=== PATIENT | male | born 1940 | race African-American/Black ===

== ENCOUNTER 2017-09-09 18:17 | Emergency (ER) | payer MEDICARE, OTHER ==
[~2017-09-09] VITALS: Ht 177.8 cm; Wt 79.4 kg
[~2017-09-09 18:17] MED LIST: FUROSEMIDE20 M1 ORAL; NKM; NORVASC5 MG ORAL
--- NOTE | 2017-09-09 18:56 | Emergency Room Report ---
History of Present Illness General Chief Complaint: Asthma Source: Patient Present Illness HPI Patient is a 76-year-old male who presents today with complaints of an asthma exacerbation. Patient has a history of asthma and states it has been having an exacerbation off and on for the last several days. He has been taking his albuterol inhaler at home with some relief. Last dose of albuterol was prior to arrival. He denies any chest pain, nausea, vomiting, shortness of breath or associated symptoms. He has no significant medical problems and denies tobacco , alcohol or drug use Allergies: Coded Allergies: No Known Allergies (Unverified , 01/09/14) Patient History Reviewed Nursing Documentation: PMH: Agreed, PSxH: Agreed Nursing Documentation-PMH Past Medical History: No History, Except For Hx Cardiac Problems: Yes Hx Hypertension: Yes Hx Pacemaker: No Hx Asthma: Yes Hx COPD: No Hx Diabetes: No Hx Cancer: No Hx Gastrointestinal Problems: No Hx Dialysis: No History Of Psychiatric Problem: No Hx Neurological Problems: No Hx Cerebrovascular Accident: No Hx Seizures: No Review of Systems Respiratory: Reports: cough All Other Systems: negative except mentioned in HPI Physical Exam Vital Signs Date Time Temp Pulse Resp B/P (MAP) Pulse Ox O2 Delivery O2 Flow Rate FiO2 09/09/17 18:21 97.5 105 18 188/120 99 Room Air Sp02 EP Interpretation: reviewed, normal General Appearance: no apparent distress, alert, GCS 15, non-toxic Head: normocephalic, atraumatic Eyes: bilateral eye normal inspection, bilateral eye PERRL ENT: hearing grossly normal, normal pharynx, no angioedema, normal voice Neck: full range of motion, supple/symm/no masses Respiratory: chest non-tender, normal breath sounds, speaking full sentences, other - faint inspiratory and expiratory wheezing in all lung lópez Cardiovascular #1: regular rate, rhythm, no edema Cardiovascular #2: 2+ carotid (R), 2+ carotid (L), 2+ radial (R), 2+ radial (L) , 2+ dorsalis pedis (R), 2+ dorsalis pedis (L) Gastrointestinal: normal bowel sounds, non tender, soft, non-distended, no guarding, no rebound Rectal: deferred Genitourinary: normal inspection, no CVA tenderness Musculoskeletal: back normal, gait/station normal, normal range of motion, non- tender, calf tenderness Neurologic: alert, oriented x3, responsive, motor strength/tone normal, sensory intact, speech normal Psychiatric: judgement/insight normal, memory normal, mood/affect normal, no suicidal/homicidal ideation Reflexes: 3+ bicep (R), 3+ bicep (L), 3+ tricep (R), 3+ tricep (L), 3+ knee (R) , 3+ knee (L) Skin: normal color, no rash, warm/dry, well hydrated Lymphatic: no adenopathy Medical Decision Making PA Attestation supervising physician Dr. Quiñonez Diagnostic Impression: Primary Impression: Acute bronchospasm Additional Impressions: History of hypertension Noncompliance ER Course Patient is given albuterol breathing treatment and Decadron with improvement of symptoms on reevaluation. A repeat pulse ox is 100% on room air which is normal and chest x-ray shows chronic changes, no infiltrates. Patient has history of hypertension and has not been taking his medication. The patient is hypertensive in the ED it is asymptomatic. No need for emergent management of hypertension. Patient is given prescription for hydrochlorothiazide and is instructed to follow up with the CT for further evaluation and management. patient understands this we will plan. Discussed case with Dr. Quiñonez who agrees with disposition and plan. Chest X-Ray Diagnostic Results Chest X-Ray Diagnostic Results : Chest X-Ray Ordered: Yes # of Views/Limited/Complete: 1 View Indication: Other - asthma exacerbation EP Interpretation: Yes Interpretation: no consolidation, no pneumothorax, other - Cardiomegaly, right pleural effusion, chronic interstitial disease Electronically Signed by: RABIA Last Vital Signs Date Time Temp Pulse Resp B/P (MAP) Pulse Ox O2 Delivery O2 Flow Rate FiO2 09/09/17 18:21 97.5 105 18 188/120 99 Room Air Status: improved Disposition: HOME, SELF-CARE Condition: Stable Scripts Hydrochlorothiazide* (HYDROCHLOROTHIAZIDE*) 25 Mg Tablet 25 MG ORAL DAILY for 20 Days, #20 TAB Prov: Gaye Prather P.A. 09/09/17 Prednisone (Prednisone) 20 Mg Tablet 40 MG PO DAILY for 4 Days, #4 TAB Prov: Gaye Prather P.A. 09/09/17 Patient Instructions: Asthma, Adult Gaye Prather P.AJuan Sep 09, 2017 18:56
[2017-09-09] MEDS ORDERED: Albuterol/Ipratropium 3ml neb HHN SCH (19:00)
[2017-09-09 20:17] VITALS: BP 147/113
[2017-09-09] MEDS ORDERED: PREDNISONE20 M1 PO (20:33)
[2017-09-09] MEDS ORDERED: HYDROCHLOROTHIA25 MG ORAL (20:33)
[2017-09-09 20:41] VITALS: BP 147/113
--- NOTE | 2017-09-10 08:53 | Diagnostic Imaging Report ---
Indication: Cough Technique: One view of the chest Comparison: 01/09/2014 Findings: There are bilateral right greater than left pleural effusions, appearing similar in size to the previous study. The heart is enlarged. The lungs are clear and there is no significant congestion. Impression: Bilateral pleural effusions Cardiomegaly
== END 2017-09-09 20:41 | disposition home or self-care (01) ==
LOC: EMR 19:01
DX: J45.901 Unspecified asthma with (acute) exacerbation (principal); I10 Essential (primary) hypertension; Z91.14 Patient's other noncompliance with medication regimen; I51.7 Cardiomegaly
CPT/HCPCS: 71045; 94640; 94664; 99283; J8540; J7620

== ENCOUNTER 2017-10-18 21:40 | Inpatient (IN) | payer MEDICARE ==
[~2017-10-18] VITALS: Ht 177.8 cm; Wt 64.0 kg
[~2017-10-18 21:40] MED LIST changes: +HYDROCHLOROTHIA25 MG ORAL; +PREDNISONE20 M1 PO
--- NOTE | 2017-10-18 22:04 | Emergency Room Report ---
History of Present Illness General Chief Complaint: Edema Source: Patient Present Illness HPI Patient presents for complaints of increased swelling in both of his legs Also feels some shortness of breath specifically with ambulation Denies any chest pain at this time denies any back or flank pain he also reports he has an upset stomach however Associates it to drinking raw milk Denies any vomiting denies any diarrhea Patient reports that he is on diuretics, however cannot give me a specific dosing Has not had any change with the dosing recently Patient saw his primary physician last week Denies any recent travel denies any calf pain Denies any pleurisy Allergies: Coded Allergies: No Known Allergies (Unverified , 01/09/14) Patient History Past Medical History: see triage record Pertinent Family History: none Reviewed Nursing Documentation: PMH: Agreed, PSxH: Agreed Nursing Documentation-PMH Hx Cardiac Problems: Yes Hx Hypertension: Yes Hx Pacemaker: No Hx Asthma: Yes Hx COPD: No Hx Diabetes: No Hx Cancer: No Hx Gastrointestinal Problems: No Hx Dialysis: No Hx Neurological Problems: No Hx Cerebrovascular Accident: No Hx Seizures: No Review of Systems All Other Systems: negative except mentioned in HPI Physical Exam Vital Signs Date Time Temp Pulse Resp B/P (MAP) Pulse Ox O2 Delivery O2 Flow Rate FiO2 10/18/17 21:42 96.6 74 16 118/85 95 Room Air 96.6 Sp02 EP Interpretation: reviewed, normal General Appearance: well appearing, no apparent distress Head: normocephalic, atraumatic Eyes: bilateral eye PERRL, bilateral eye EOMI ENT: hearing grossly normal, normal pharynx, TMs + canals normal, uvula midline Neck: full range of motion, supple, no meningismus, no bony tend Respiratory: lungs clear, normal breath sounds, no rhonchi, no respiratory distress, no retraction, no accessory muscle use, crackles - Bilateral lower lobes Cardiovascular #1: normal peripheral pulses, regular rate, rhythm, no gallop, no JVD, no murmur, edema - 2/4 bilateral legs Gastrointestinal: normal bowel sounds, non tender, soft, no mass, no organomegaly, non-distended, no guarding, no hernia, no pulsatile mass, no rebound Genitourinary: no CVA tenderness Musculoskeletal: normal inspection Neurologic: oriented x3, responsive, flowers salesperson III-XII nml as tested, motor strength/ tone normal, sensory intact Psychiatric: mood/affect normal Skin: normal color, no rash, warm/dry, palpation normal Lymphatic: normal inspection, no adenopathy Medical Decision Making Diagnostic Impression: Primary Impression: Elevated troponin Additional Impression: CHF (congestive heart failure) ER Course Patient is a fairly complex patient with multiple differential to consideration including but not limited to cardiac cardiopulmonary and vascular emergencies X-ray imaging shows small effusions Troponin is elevated Patient at this time remains chest pain-free Admitted for further care Labs Test 10/18/17 23:30 White Blood Count 11.6 K/UL (4.8-10.8) Red Blood Count 6.90 M/UL (4.70-6.10) Hemoglobin 21.0 G/DL (14.2-18.0) Hematocrit 63.5 % (42.0-52.0) Mean Corpuscular Volume 92 FL (80-99) Mean Corpuscular Hemoglobin 30.4 PG (27.0-31.0) Mean Corpuscular Hemoglobin Concent 33.0 G/DL (32.0-36.0) Red Cell Distribution Width 16.2 % (11.6-14.8) Platelet Count 103 K/UL (150-450) Mean Platelet Volume 11.3 FL (6.5-10.1) Neutrophils (%) (Auto) 82.8 % (45.0-75.0) Lymphocytes (%) (Auto) 11.0 % (20.0-45.0) Monocytes (%) (Auto) 5.5 % (1.0-10.0) Eosinophils (%) (Auto) 0.2 % (0.0-3.0) Basophils (%) (Auto) 0.5 % (0.0-2.0) Sodium Level 140 MMOL/L (136-145) Potassium Level 5.1 MMOL/L (3.5-5.1) Chloride Level 102 MMOL/L (98-107) Carbon Dioxide Level 24 MMOL/L (21-32) Anion Gap 14 mmol/L (5-15) Blood Urea Nitrogen 74 mg/dL (7-18) Creatinine 3.8 MG/DL (0.55-1.30) Estimat Glomerular Filtration Rate mL/min (>60) Glucose Level 109 MG/DL (74-106) Uric Acid 17.2 MG/DL (2.6-7.2) Calcium Level 9.7 MG/DL (8.5-10.1) Total Bilirubin 2.3 MG/DL (0.2-1.0) Direct Bilirubin 1.2 MG/DL (0.0-0.3) Aspartate Amino Transf (AST/SGOT) 112 U/L (15-37) Alanine Aminotransferase (ALT/SGPT) 113 U/L (12-78) Alkaline Phosphatase 198 U/L (46-116) Total Creatine Kinase 233 U/L (26-308) Creatine Kinase MB 3.8 NG/ML (0.0-3.6) Troponin I 0.121 ng/mL (0.000-0.056) Pro-B-Type Natriuretic Peptide 06604 pg/mL (0-125) Total Protein 7.4 G/DL (6.4-8.2) Albumin 3.7 G/DL (3.4-5.0) Globulin 3.7 g/dL Albumin/Globulin Ratio 1.0 (1.0-2.7) EKG Diagnostic Results Rate: normal Rhythm: NSR ST Segments: other - Nonspecific ST T-wave changes Rhythm Strip Diag. Results EP Interpretation: yes Rate: 78 Rhythm: NSR, no PVC's, no ectopy Chest X-Ray Diagnostic Results Chest X-Ray Diagnostic Results : Chest X-Ray Ordered: Yes # of Views/Limited/Complete: 1 View Indication: Chest Pain EP Interpretation: Yes Interpretation: no consolidation, no pneumothorax, other - Cardiomegaly, small bilateral effusions Impression: Other - Cardiomegaly, small effusion Electronically Signed by: Ivory Thomas DO Last Vital Signs Date Time Temp Pulse Resp B/P (MAP) Pulse Ox O2 Delivery O2 Flow Rate FiO2 10/18/17 21:42 96.6 74 16 118/85 95 Room Air 96.6 Status: improved Disposition: ADMITTED INPATIENT Condition: Serious IVORY THOMAS D.O. Oct 18, 2017 22:04
[2017-10-18] MEDS ORDERED: Miralax 17gm pkt ORAL PRN (23:30)
[2017-10-18] MEDS ORDERED: Albuterol/Ipratropium 3ml neb HHN PRN (23:30)
[2017-10-18] MEDS ORDERED: NYSTATIN100000 UN1 ORAL (23:49)
[2017-10-18] MEDS ORDERED: TOPROL XL100 MG ORAL (23:49)
[2017-10-18] MEDS ORDERED: LASIX40 MG ORAL (23:49)
[2017-10-18 23:58] LABS: BASOPHILS % (AUTO) 0.5 % (0.0-2.0); EOSINOPHILS % (AUTO) 0.2 % (0.0-3.0); HEMATOCRIT 63.5 % (42.0-52.0); MEAN CORPUSCULAR VOLUME 92 FL (80-99); MONOCYTES % (AUTO) 5.5 % (1.0-10.0); NEUTROPHILS % (AUTO) 82.8 % (45.0-75.0); PLATELET COUNT 103 K/UL (150-450); RED CELL DISTRIBUTION WIDTH 16.2 % (11.6-14.8); WHITE BLOOD COUNT 11.6 K/UL (4.8-10.8)
[2017-10-19 00:15] LABS: ANION GAP 14 mmol/L (5-15); BLOOD UREA NITROGEN 74 mg/dL (7-18); CALCIUM 9.7 MG/DL (8.5-10.1); CARBON DIOXIDE 24 MMOL/L (21-32); CHLORIDE 102 MMOL/L (98-107); CREATININE 3.8 MG/DL (0.55-1.30); POTASSIUM 5.1 MMOL/L (3.5-5.1); SODIUM 140 MMOL/L (136-145)
[2017-10-19 00:21] LABS: CREATINE KINASE 233 U/L (26-308)
[2017-10-19 00:27] LABS: ALANINE AMINOTRANSFERASE 113 U/L (12-78); ALBUMIN 3.7 G/DL (3.4-5.0); ALKALINE PHOSPHATASE 198 U/L (46-116); ASPARTATE AMINO TRANSFERASE 112 U/L (15-37); BILIRUBIN,TOTAL 2.3 MG/DL (0.2-1.0); CKMB 3.8 NG/ML (0.0-3.6)
[2017-10-19 00:29] LABS: BILIRUBIN,DIRECT 1.2 MG/DL (0.0-0.3)
[2017-10-19 01:45] VITALS: BP 126/85
[2017-10-19 03:37] VITALS: BP 118/74
[2017-10-19 05:54] VITALS: BP 132/93
--- NOTE | 2017-10-19 07:34 | Consultation ---
History of Present Illness General Date patient seen: Oct 19, 2017 Chief Complaint: Edema Present Illness HPI 77 year old female with hx of asthma, cardiac disease presented to ER for complaints of increased swelling in both of his legs and shortness of breath specifically with ambulation Denied any chest pain . Denied any vomiting denies any diarrhea. He is on diuretics, however cannot give a specific dosing Has not had any change with the dosing recently. Pt is admitted to telemetry for acute decompensation of CHF. Allergies: Coded Allergies: No Known Allergies (Unverified , 01/09/14) Medication History Scheduled Amlodipine Besylate (Norvasc), 5 MG ORAL DAILY Furosemide* (Lasix*), 20 MG ORAL DAILY Furosemide* (Lasix*), 40 MG ORAL DAILY, (Reported) Hydrochlorothiazide* (Hydrochlorothiazide*), 25 MG ORAL DAILY Metoprolol Succinate* (Toprol Xl*), 100 MG ORAL DAILY, (Reported) No Known Medications* (NKM - No Known Medications*), 0 ., (Reported) Nystatin* (Nystatin*), 5 ML ORAL THREE TIMES A DAY, (Reported) Prednisone (Prednisone), 40 MG PO DAILY Patient History Healthcare decision maker Resuscitation status Full Code Advanced Directive on File No Past Medical/Surgical History Past Medical/Surgical History: (1) Cardiomyopathy (2) HTN (hypertension) (3) CKD (chronic kidney disease) Review of Systems Respiratory: Reports: shortness of breath Musculoskeletal: Reports: other - pedal edema up to knees All Other Systems: negative except mentioned in HPI Physical Exam General Appearance: cachetic Lines, tubes and drains: peripheral HEENT: normocephalic, atraumatic Neck: non-tender, normal alignment Respiratory/Chest: chest wall non-tender, lungs clear, rhonchi - left, rhonchi - right Cardiovascular/Chest: normal peripheral pulses, normal rate Genitourinary/Rectal: normal genital exam Extremities: severe edema Skin Exam: normal pigmentation, warm/dry 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, no motor/sensory deficits Last 24 Hour Vital Signs Date Time Temp Pulse Resp B/P (MAP) Pulse Ox O2 Delivery O2 Flow Rate FiO2 10/19/17 05:54 97.0 71 20 132/93 100 Room Air 97.0 10/19/17 04:10 76 10/19/17 04:05 97.1 70 13 118/74 99 Room Air 97.1 10/19/17 03:37 97.1 70 13 118/74 99 Room Air 97.1 10/19/17 01:45 96.6 88 16 126/85 95 Room Air 96.6 10/18/17 23:03 74 16 Room Air 10/18/17 21:42 96.6 74 16 118/85 95 Room Air 96.6 Intake and Output 10/18/17 10/19/17 19:00 07:00 Intake Total 30 ml Output Total 200 ml Balance -170 ml Intake Oral 30 ml Output Urine Total 200 ml # Voids 1 Laboratory Tests Test 10/18/17 23:30 White Blood Count 11.6 K/UL (4.8-10.8) H Red Blood Count 6.90 M/UL (4.70-6.10) H Hemoglobin 21.0 G/DL (14.2-18.0) *H Hematocrit 63.5 % (42.0-52.0) H Mean Corpuscular Volume 92 FL (80-99) Mean Corpuscular Hemoglobin 30.4 PG (27.0-31.0) Mean Corpuscular Hemoglobin Concent 33.0 G/DL (32.0-36.0) Red Cell Distribution Width 16.2 % (11.6-14.8) H Platelet Count 103 K/UL (150-450) L Mean Platelet Volume 11.3 FL (6.5-10.1) H Neutrophils (%) (Auto) 82.8 % (45.0-75.0) H Lymphocytes (%) (Auto) 11.0 % (20.0-45.0) L Monocytes (%) (Auto) 5.5 % (1.0-10.0) Eosinophils (%) (Auto) 0.2 % (0.0-3.0) Basophils (%) (Auto) 0.5 % (0.0-2.0) Sodium Level 140 MMOL/L (136-145) Potassium Level 5.1 MMOL/L (3.5-5.1) Chloride Level 102 MMOL/L (98-107) Carbon Dioxide Level 24 MMOL/L (21-32) Anion Gap 14 mmol/L (5-15) Blood Urea Nitrogen 74 mg/dL (7-18) H Creatinine 3.8 MG/DL (0.55-1.30) H Estimat Glomerular Filtration Rate mL/min (>60) Glucose Level 109 MG/DL (74-106) H Uric Acid 17.2 MG/DL (2.6-7.2) H Calcium Level 9.7 MG/DL (8.5-10.1) Total Bilirubin 2.3 MG/DL (0.2-1.0) H Direct Bilirubin 1.2 MG/DL (0.0-0.3) H Aspartate Amino Transf (AST/SGOT) 112 U/L (15-37) H Alanine Aminotransferase (ALT/SGPT) 113 U/L (12-78) H Alkaline Phosphatase 198 U/L (46-116) H Total Creatine Kinase 233 U/L (26-308) Creatine Kinase MB 3.8 NG/ML (0.0-3.6) H Troponin I 0.121 ng/mL (0.000-0.056) Pro-B-Type Natriuretic Peptide 89962 pg/mL (0-125) H Total Protein 7.4 G/DL (6.4-8.2) Albumin 3.7 G/DL (3.4-5.0) Globulin 3.7 g/dL Albumin/Globulin Ratio 1.0 (1.0-2.7) Height (Feet): 5 Height (Inches): 10.00 Weight (Pounds): 167 Medications Current Medications Medications (Trade) Dose Ordered Sig/Denny Route PRN Reason Start Time Stop Time Status Last Admin Dose Admin Acetaminophen (Tylenol) 650 mg Q4H PRN ORAL Fever 10/18/17 23:30 11/17/17 23:29 Albuterol/ Ipratropium (Albuterol/ Ipratropium) 3 ml EVERY 4 HOURS PRN HHN Shortness of Breath 10/18/17 23:30 10/23/17 23:29 Amlodipine Besylate (Norvasc) 5 mg DAILY ORAL 10/19/17 09:00 11/18/17 08:59 Dextrose (Dextrose 50%) STAT PRN IV Hypoglycemia 10/18/17 23:30 11/17/17 23:29 Furosemide (Lasix) 40 mg EVERY 8 HOURS IV 10/19/17 06:00 11/18/17 05:59 10/19/17 05:07 Heparin Sodium (Porcine) (Heparin 5000 units/ml) 5,000 units EVERY 12 HOURS SUBQ 10/19/17 09:00 11/18/17 08:59 Ondansetron HCl (Zofran) 4 mg Q6H PRN IVP Nausea & Vomiting 10/18/17 23:30 11/17/17 23:29 Polyethylene Glycol (Miralax) 17 gm DAILYPRN PRN ORAL Constipation 10/18/17 23:30 11/17/17 23:29 Prednisone (predniSONE) 40 mg DAILY ORAL 10/19/17 09:00 11/18/17 08:59 Temazepam (Restoril) 15 mg HSPRN PRN ORAL Insomnia 10/18/17 23:30 10/25/17 23:29 Assessment/Plan Problem List: (1) Respiratory distress ICD Codes: R06.00 - Dyspnea, unspecified SNOMED: 502422962 (2) Peripheral edema ICD Codes: R60.9 - Edema, unspecified SNOMED: 317944304 (3) Cardiomyopathy ICD Codes: I42.9 - Cardiomyopathy SNOMED: 64555385 (4) CHF (congestive heart failure) ICD Codes: I50.9 - CHF (congestive heart failure) SNOMED: 91798997 (5) HTN (hypertension) ICD Codes: I10 - HTN (hypertension) SNOMED: 95213729 (6) CKD (chronic kidney disease) ICD Codes: N18.9 - CKD (chronic kidney disease) SNOMED: 663858383 (7) Malnutrition ICD Codes: E46 - Malnutrition SNOMED: 4378251 Assessment/Plan 2d echo diuretics cardiology evaluation monitor BP renal studies check electrolytes. AVRIL BANKS Oct 19, 2017 07:34
[2017-10-19] MEDS: Heparin 5000 units/ml inj SUBQ SCH ×2 (08:40→21:17)
[2017-10-19 09:22] LABS: APPEARANCE,URINE CLEAR; BILIRUBIN, URINE NEGATIVE (NEGATIVE); COLOR,URINE PALE YELLOW; GLUCOSE, URINE (UA) NEGATIVE (NEGATIVE); KETONES,URINE NEGATIVE (NEGATIVE); LEUKOCYTE ESTERASE ,URINE NEGATIVE (NEGATIVE); NITRITE,URINE NEGATIVE (NEGATIVE); PH,URINE 5 (4.5-8.0); PROTEIN,URINE NEGATIVE (NEGATIVE); UROBILINOGEN,URINE NORMAL MG/DL (0.0-1.0)
--- NOTE | 2017-10-19 10:29 | Diagnostic Imaging Report ---
Indication: Chest pain Comparison: 09/09/2017 A single view chest radiograph was obtained. Findings: Cardiac silhouette is enlarged. Pulmonary vascularity is normal. There is suggestion of mild left basal atelectasis currently. IMPRESSION: Cardiomegaly. Mild left basal atelectasis
[2017-10-19 11:17] LABS: HEMATOCRIT 60.8 % (42.0-52.0); MEAN CORPUSCULAR VOLUME 95 FL (80-99); PLATELET COUNT 102 K/UL (150-450); RED BLOOD COUNT 6.42 M/UL (4.70-6.10); RED CELL DISTRIBUTION WIDTH 16.5 % (11.6-14.8); WHITE BLOOD COUNT 11.7 K/UL (4.8-10.8)
[2017-10-19 11:20] LABS: HEMOGLOBIN 18.8 G/DL (14.2-18.0)
[2017-10-19 11:54] LABS: ALBUMIN 3.4 G/DL (3.4-5.0); ANION GAP 14 mmol/L (5-15); BLOOD UREA NITROGEN 76 mg/dL (7-18); CALCIUM 9.6 MG/DL (8.5-10.1); CARBON DIOXIDE 27 MMOL/L (21-32); CHLORIDE 102 MMOL/L (98-107); CREATININE 3.8 MG/DL (0.55-1.30); PHOSPHORUS 5.8 MG/DL (2.5-4.9); POTASSIUM 4.9 MMOL/L (3.5-5.1); SODIUM 143 MMOL/L (136-145)
--- NOTE | 2017-10-19 12:01 | Cardiology Progress Note ---
Assessment/Plan Assessment/Plan chronic systolic heart failure Right heart failuer Edema due to above and possible venous insuf Non-ischemic cardiomyopathy no cad by cath 2016 FIONA on CKD to cardiorenal History of DVT none now polycythemia unclear etiology shoudl evalue to see if primary or secondary pulmonary HTn Thrombocytopenia HTN may need a short course fo dobutamin infusion to help right heart for a few days if not improve with bp control and diuretics lisinopril / hydralazien [id number] Objective Last 24 Hour Vital Signs Date Time Temp Pulse Resp B/P (MAP) Pulse Ox O2 Delivery O2 Flow Rate FiO2 10/19/17 08:39 71 132/93 10/19/17 05:54 97.0 71 20 132/93 100 Room Air 97.0 10/19/17 04:10 76 10/19/17 04:05 97.1 70 13 118/74 99 Room Air 97.1 10/19/17 03:37 97.1 70 13 118/74 99 Room Air 97.1 10/19/17 01:45 96.6 88 16 126/85 95 Room Air 96.6 10/18/17 23:03 74 16 Room Air 10/18/17 21:42 96.6 74 16 118/85 95 Room Air 96.6 Intake and Output 10/18/17 10/19/17 19:00 07:00 Intake Total 30 ml Output Total 200 ml Balance -170 ml Intake Oral 30 ml Output Urine Total 200 ml # Voids 1 Laboratory Tests Test 10/18/17 23:30 10/19/17 09:00 10/19/17 11:00 White Blood Count 11.6 K/UL (4.8-10.8) H 11.7 K/UL (4.8-10.8) H Red Blood Count 6.90 M/UL (4.70-6.10) H 6.42 M/UL (4.70-6.10) H Hemoglobin 21.0 G/DL (14.2-18.0) *H 18.8 G/DL (14.2-18.0) *H Hematocrit 63.5 % (42.0-52.0) H 60.8 % (42.0-52.0) H Mean Corpuscular Volume 92 FL (80-99) 95 FL (80-99) Mean Corpuscular Hemoglobin 30.4 PG (27.0-31.0) 29.3 PG (27.0-31.0) Mean Corpuscular Hemoglobin Concent 33.0 G/DL (32.0-36.0) 31.0 G/DL (32.0-36.0) L Red Cell Distribution Width 16.2 % (11.6-14.8) H 16.5 % (11.6-14.8) H Platelet Count 103 K/UL (150-450) L 102 K/UL (150-450) L Mean Platelet Volume 11.3 FL (6.5-10.1) H 11.3 FL (6.5-10.1) H Neutrophils (%) (Auto) 82.8 % (45.0-75.0) H % (45.0-75.0) Lymphocytes (%) (Auto) 11.0 % (20.0-45.0) L % (20.0-45.0) Monocytes (%) (Auto) 5.5 % (1.0-10.0) % (1.0-10.0) Eosinophils (%) (Auto) 0.2 % (0.0-3.0) % (0.0-3.0) Basophils (%) (Auto) 0.5 % (0.0-2.0) % (0.0-2.0) Sodium Level 140 MMOL/L (136-145) 143 MMOL/L (136-145) Potassium Level 5.1 MMOL/L (3.5-5.1) 4.9 MMOL/L (3.5-5.1) Chloride Level 102 MMOL/L (98-107) 102 MMOL/L (98-107) Carbon Dioxide Level 24 MMOL/L (21-32) 27 MMOL/L (21-32) Anion Gap 14 mmol/L (5-15) 14 mmol/L (5-15) Blood Urea Nitrogen 74 mg/dL (7-18) H 76 mg/dL (7-18) H Creatinine 3.8 MG/DL (0.55-1.30) H 3.8 MG/DL (0.55-1.30) H Estimat Glomerular Filtration Rate mL/min (>60) mL/min (>60) Glucose Level 109 MG/DL (74-106) H 110 MG/DL (74-106) H Uric Acid 17.2 MG/DL (2.6-7.2) H Calcium Level 9.7 MG/DL (8.5-10.1) 9.6 MG/DL (8.5-10.1) Total Bilirubin 2.3 MG/DL (0.2-1.0) H Direct Bilirubin 1.2 MG/DL (0.0-0.3) H Aspartate Amino Transf (AST/SGOT) 112 U/L (15-37) H Alanine Aminotransferase (ALT/SGPT) 113 U/L (12-78) H Alkaline Phosphatase 198 U/L (46-116) H Total Creatine Kinase 233 U/L (26-308) Creatine Kinase MB 3.8 NG/ML (0.0-3.6) H Troponin I 0.121 ng/mL (0.000-0.056) 0.128 ng/mL (0.000-0.056) Pro-B-Type Natriuretic Peptide 85274 pg/mL (0-125) H Total Protein 7.4 G/DL (6.4-8.2) Albumin 3.7 G/DL (3.4-5.0) 3.4 G/DL (3.4-5.0) Globulin 3.7 g/dL Albumin/Globulin Ratio 1.0 (1.0-2.7) Urine Color Pale yellow Urine Appearance Clear Urine pH 5 (4.5-8.0) Urine Specific [place] 1.010 (1.005-1.035) Urine Protein Negative (NEGATIVE) Urine Glucose (UA) Negative (NEGATIVE) Urine Ketones Negative (NEGATIVE) Urine Occult Blood 1+ (NEGATIVE) H Urine Nitrite Negative (NEGATIVE) Urine Bilirubin Negative (NEGATIVE) Urine Urobilinogen Normal MG/DL (0.0-1.0) Urine Leukocyte Esterase Negative (NEGATIVE) Urine RBC 0-2 /HPF (0 - 0) H Urine WBC 0 /HPF (0 - 0) Urine Squamous Epithelial Cells Few /LPF (NONE/OCC) Urine Bacteria None /HPF (NONE) Urine Eosinophils None seen Urine Random Sodium 77 mmol/L (20-110) Urine Potassium Timed 33 mmol/L (12-62) Differential Total Cells Counted 100 Neutrophils % (Manual) 86 % (45-75) H Lymphocytes % (Manual) 8 % (20-45) L Monocytes % (Manual) 6 % (1-10) Eosinophils % (Manual) 0 % (0-3) Basophils % (Manual) 0 % (0-2) Band Neutrophils 0 % (0-8) Platelet Estimate Decreased L Platelet Morphology Normal Red Blood Cell Morphology Normal Phosphorus Level 5.8 MG/DL (2.5-4.9) MIMI DELGADILLO Oct 19, 2017 12:01
[2017-10-19] MEDS: HydrALAZINE 10mg Tab ORAL SCH ×2 (13:02→21:17)
--- NOTE | 2017-10-19 13:11 | Diagnostic Imaging Report ---
Indication:Elevated Bun and Creatinine. Technique: Grayscale and duplex Doppler imaging of the kidneys performed. Comparison: None Findings: There are bilateral renal cysts demonstrated of varying size. The largest cyst is in the right kidney measuring 5 cm. There is an echogenic focus likely a small stone in the right kidney. There is no hydronephrosis. The kidneys measure between 10 and 11 cm in length. Urinary bladder is unremarkable. IVC is unremarkable. IMPRESSION: Nonobstructive stone in the right kidney. Multiple bilateral renal cysts.
--- NOTE | 2017-10-19 16:22 | Cardiology Report ---
APPROVED REPORT EXAM: Two-dimensional and M-mode echocardiogram with Doppler and color Doppler. INDICATION LV funcfion M-Mode DIMENSIONS IVSd1.0 (0.7-1.1cm)Left Atrium (MM)4.7 (1.6-4.0cm) LVDd6.6 (3.5-5.6cm)Aortic Root2.6 (2.0-3.7cm) PWd1.0 (0.7-1.1cm)Aortic Cusp Exc.1.6 (1.5-2.0cm) LVDs6.1 (2.5-4.0cm) PWs1.2 cm Four chamber dilatation with severe left ventricular enlargement. Severe global left ventricular hypokinesis with septal thinning. Left ventricular ejection fraction estimated to be 10-15 %. No evidence of pericardial effusion. Focal aortic valve sclerosis with adequate cusp excursion. Thickened mitral valve leaflets with normal excursion. Mitral annulus and aortic root calcification. Pulmonic valve not well visualized. Normal tricuspid valve structure. IVC dilated at 2.6 cm without physiologic collapse suggestive of increased RA pressure. A color flow and spectral Doppler study was performed and revealed: Moderate aortic regurgitation. Moderate mitral regurgitation. Mitral inflow velocities indicates possible pseudo normalization pattern implying moderately elevated left atrial pressure (Grade II ). Moderate to severe tricuspid regurgitation. Tricuspid systolic velocities suggests peak right ventricular systolic pressure of 71 mmHg, consistent with severe pulmonary hypertension. Significant pulmonic regurgitation present.
--- NOTE | 2017-10-19 16:26 | Cardiology Report ---
APPROVED REPORT EKG Measurement Heart [id number] Sinus rhythm with 1st degree AV block Possible Left atrial enlargement Left axis deviation Right bundle branch block Anterolateral infarct, age undetermined Abnormal ECG
--- NOTE | 2017-10-19 17:43 | Consultation ---
Consult Note Consult Note Asked to eval for renal failure- Patient presents for complaints of increased swelling in both of his legs Also feels some shortness of breath specifically with ambulation Denies any chest pain at this time denies any back or flank pain he also reports he has an upset stomach however Associates it to drinking raw milk Denies any vomiting denies any diarrhea Patient reports that he is on diuretics, however cannot give me a specific dosing Has not had any change with the dosing recently Patient saw his primary physician last week Denies any recent travel denies any calf pain Denies any pleurisy Hx Cardiac Problems: Yes Hx Hypertension: Yes Hx Asthma: Yes Assessment/Plan FIONA on CKD to cardiorenal chronic systolic heart failure Right heart failuer Edema due to above and possible venous insuf Non-ischemic cardiomyopathy no cad by cath 2015 History of DVT none now polycythemia unclear etiology should eval to see if primary or secondary pulmonary HTn Thrombocytopenia HTN echo: Severe global left ventricular hypokinesis with septal thinning. Left ventricular ejection fraction estimated to be 10-15 %. Plan; Optimize cardiac status monitor renal parameters 24 H urine for CrCl Avoid nephrotoxics BHARATHI LOVE Oct 19, 2017 17:43
[2017-10-19] MEDS: Tamsulosin 0.4mg cap ORAL SCH (18:50)
--- NOTE | 2017-10-19 19:57 | History & Physical ---
History and Physical History & Physicial pt seen and examined full note dictated [id number] Madelaine Tobias MD [phone] MADELAINE TOBIAS Oct 19, 2017 19:56
[2017-10-19 20:00] VITALS: BP 123/86
--- NOTE | 2017-10-19 20:15 | Consultation ---
DATE OF CONSULTATION: 10/19/2017 CARDIOLOGY CONSULTATION CONSULTING PHYSICIAN: Liang Bustamante M.D. REFERRING PHYSICIAN: Martín Crowley M.D. REASON FOR REFERRAL: Congestive heart failure. HISTORY OF PRESENT ILLNESS: This is a 77-year-old gentleman who has had a history of diastolic heart failure from prior evaluations and hospitalizations at [facility], but apparently, had not been compliant with medication over the past 5 months, presented to primary care physician's office, with increasing leg edema. He was just started on some diuretics. His edema continues, so he came to the emergency room. He really does not have any dyspnea on exertion. There is no PND. No orthopnea. No dizziness or lightheadedness on standing. No heart pounding or palpitations. He is active. He rides his stationary bike between 5 to 20 minutes a day. He does not really have to stop because of shortness of breath or chest pain. No pain, pressure, tightness, or heaviness in his chest. PAST MEDICAL HISTORY: Obtained from review of the patient's [facility] records indicate a history of congestive heart failure, systolic dysfunction, history of hypertension, chronic kidney disease, pulmonary hypertension, pleural effusions, nonischemic cardiomyopathy, thoracentesis, right lower extremity popliteal and peroneal DVT, anemia of chronic disease with iron deficiency anemia secondary hyperparathyroidism, pulmonary hypertension, early satiety, thrombocytopenia, hypertension. He has undergone a cardiac catheterization for history of really depressed LV function in 2016 that showed no evidence of obstructive disease and the patient was deemed to have nonischemic cardiomyopathy, right renal cyst. ALLERGIES: He is not allergic to any medications. SOCIAL HISTORY: He has not smoked since 1988. No drinking of alcoholic beverages. No drug use. REVIEW OF SYSTEMS: GASTROINTESTINAL: He denies except for the fact that he has not been eating for the past two weeks because of what he feels is the treatment that he got for his teeth recently. this appetite he thinks. GENITOURINARY: He denies. PULMONARY: He denies. CONSTITUTIONAL: He denies. NEUROLOGIC: He denies. CARDIAC: As mentioned in history of present illness. PHYSICAL EXAMINATION: GENERAL: Shows to be elderly gentleman, in no respiratory distress, although he is sitting up. LUNGS: Appear to be clear to auscultation and percussion. CARDIAC: Regular rhythm. No murmurs, rubs, heaves, or thrills noted. ABDOMEN: Soft, obese. Positive bowel sounds. EXTREMITIES: Show 2+ edema, basically in the lower extremities below the knee 2 to 3+. LABORATORY AND DIAGNOSTIC DATA: EKG shows sinus rhythm, leftward axis, delay in R-wave progression and direct comparison with prior EKGs performed at [facility] in October 2015 and appears the QRS maybe slightly wider, although not significant. Otherwise, no other abnormalities and incomplete right bundle-branch conduction defect is noted. Venous duplex study of the lower extremity has been performed and is negative. His laboratories, white count 11.7 with a hemoglobin of 18.8, down from 21 with a platelet count of 102. Sodium 140, potassium 5.1, chloride 102, bicarbonate 24, BUN of 74, creatinine of 3.8 and glucose of 109. Uric acid of 17.2, calcium is 9.7. AST and ALT elevated at 112 and 130 consecutively and his alkaline phosphate is 198. His troponin-I here 0.121 to and 0.128. ProBNP of 30,000 almost and an albumin of 3.7. Urinalysis is fairly unremarkable. He had x-rays of his chest that showed cardiomegaly, mild left-sided atelectasis. His venous duplex as mentioned, is negative. Echocardiogram has been performed, yet to be determined. In direct comparison with the laboratories over at [facility] back in 2015, his liver function tests are much increased since October 2015. AST and ALT were 22 and 32. His alkaline phosphatase was also 88 before. ASSESSMENT AND PLAN: 1. Peripheral edema, possibility includes venous insufficiency and/or right heart failure. 2. History of nonischemic cardiomyopathy with previous ejection fraction of 15%. 3. History of right ventricular failure with pulmonary hypertension previously. 4. Medication noncompliance. 5. Acute renal insufficiency with creatinine increased from baseline of 1.3. 6. Azotemia. 7. Chronic congestive heart failure class 3. 8. Thrombocytopenia, appears to be chronic in nature. 9. Polycythemia. Dr. Crowley, this patient was seen in cardiac consultation. He probably has chronic congestive heart failure component as this seems to be relatively stable. At this time, his main issue is possible edema secondary to either venous insufficiency or right heart failure. He has had a history of pulmonary hypertension before. He should continue getting diuretics and importance of compliance with medication was discussed with the patient. He should be on guideline directed medical therapy including MONO inhibitors once and if his creatinine allows as well as some beta-blockers and sodium-restricted diet. He does not have any coronary disease that needs to be evaluated. Since he does not have any deep venous thrombosis at this time, he probably does not need any anticoagulation at this time. He has polycythemia at this time, not clear etiology that may need to be worked up, just see if primary or secondary. Liang Bustamante M.D. DR: Joanna JOB#: [id number] CC:
[2017-10-19 21:38] LABS: LACTATE DEHYDROGENASE 348 U/L (81-234)
[2017-10-20] VITALS: BP 117/72
[2017-10-20 04:00] VITALS: BP 114/66
--- NOTE | 2017-10-20 05:15 | History and Physical Report ---
DATE OF ADMISSION: 10/18/2017 NOTE: POOR AUDIO CHIEF COMPLAINT: Leg swelling and shortness of breath. HISTORY OF PRESENT ILLNESS: This is a 77-year-old gentleman with history of asthma and cardiac disease, presented to the emergency room with worsening swelling of the lower extremities and shortness of breath. The patient was on diuretics, not clear if the patient was taking it on a regular basis. The patient denies any chest pain. No nausea or vomiting. No abdominal pain. The patient was treated with diuretics and nebulizers in the emergency room and was admitted for further evaluation. ALLERGIES: No known drug allergies. MEDICATIONS: At home, please refer to medication reconciliation. I have reviewed at length. PAST MEDICAL HISTORY: 1. History of hypertension. 2. Chronic kidney disease, stage 3-4. 3. Cardiomyopathy. 4. Congestive heart failure. 5. Hyperlipidemia. 6. Cardiac disease. 7. Asthma. FAMILY HISTORY: Reviewed, history of hypertension and coronary artery disease. SOCIAL HISTORY: The patient does not smoke. No alcohol. No illicit drug use. REVIEW OF SYSTEMS: A 14-point review of systems done.CONSTITUTIONAL: Reported generalized weakness. No fever or chills. HEENT: No change in vision. No tinnitus. No epistaxis. CARDIAC: No chest pain or palpitations. History of cardiomyopathy and hypertension. LUNGS: Reported shortness of breath, worse with exertion. ABDOMEN: No nausea. No vomiting. No abdominal pain. No diarrhea. No constipation. No blood or melena. NEUROLOGIC: No history of CVA or history of TIA. GENITOURINARY: No dysuria. No hematuria. History of chronic kidney disease. All other systems reviewed and negative except for what was mentioned above. PHYSICAL EXAMINATION: VITAL SIGNS: Temperature afebrile 97 degrees Fahrenheit, pulse 71, respirations 22, blood pressure 132/93, and O2 saturation 100% on room air. GENERAL: The patient looks cachectic and in no acute respiratory distress. HEENT: Eyes are anicteric. NECK: Supple. No JVD. CARDIAC: S1 and S2 normal. There is a systolic ejection murmur at the left sternal border. LUNGS: Bilateral rhonchi. ABDOMEN: Soft, nontender, and nondistended. No guarding. No rebound. EXTREMITIES: The patient has marked edema of the lower extremities. SKIN: No rash. NEUROLOGIC: The patient moves all extremities. Follows commands. LABORATORY AND DIAGNOSTIC DATA: Labs on admission, WBC 11.6, hemoglobin 21, hematocrit 63.5, platelets 103, and neutrophils 83%. Sodium 140, potassium 5.1, chloride 102, bicarbonate 24, BUN 74, creatinine 3.8, glucose 109, uric acid 17.2, and calcium 9.7. Total bilirubin is 2.3, direct bilirubin is 1.2, AST 112, ALT 113, and alkaline phosphatase 198. CK 233. Troponin is 0.121. Albumin is 3.7. A 12-lead EKG reveals a sinus rhythm with first-degree AV block, possible left atrial enlargement, left axis deviation, right [id number], anterolateral infarct, abnormal EKG. IMPRESSION: 1. Acute on chronic left-sided heart failure. 2. History of cardiomyopathy. 3. Lower extremity edema. 4. Nonischemic cardiomyopathy, status post cardiac catheterization in 2016. 5. Polycythemia. 6. Hypertension. 7. Thrombocytopenia. 8. Hyperlipidemia. 9. Chronic kidney disease, stage 3-4. PLAN: 1. Admit to telemetry. 2. Serial cardiac enzymes and EKGs. 3. Cardiology and nephrology evaluation. 4. A 2D echo. 5. Diuretics. 6. A 24-hour urine for creatinine clearance and protein. 7. Avoid nephrotoxic medication. 8. Optimize cardiac status. 9. tele observation. 10. DVT and GI prophylaxes. 11. TSH, lipid panel, and hemoglobin A1c. 12. Pulmonary evaluation. 13. Keep oxygen saturation above 93%. 14. Out of bed with physical therapy as tolerated. 15. Further recommendations will follow pending response to the above measures and input by consultants. 16. Code status, Full code. DISPOSITION: Home versus prison facility. Anticipate discharge within three to four days pending response to the above measures. Time spent on evaluation and intervention of care is 75 minutes. Complexity of this case, high. Martín Crowley M.D. DR: ORIANA JOB#: [id number] CC: NEIDA
--- NOTE | 2017-10-20 05:15 | Consultation ---
DATE OF CONSULTATION: 10/19/2017 NOTE: POOR AUDIO HEMATOLOGY/ONCOLOGY CONSULTATION CONSULTING PHYSICIAN: Mahendra Marinelli M.D. REQUESTING PHYSICIAN: Martín Crowley M.D. and Blayne Wilson M.D. IDENTIFICATION DATA: Dear Dr. Wilson, The patient is a pleasant 77-year-old gentleman with past medical history significant for coronary artery disease and asthma, at this time presents with lower extremity swelling in the legs and shortness of breath with ambulation. Denies any fevers, chills, or night sweats. He is on diuretics, unknown exact dosing, has not had any changes in the dosing recently, has had current presentation of severe erythrocytosis with hemoglobin of 21, potentially dehydrated. Hematology Service consulted for further evaluation and underlying treatment. PAST MEDICAL HISTORY: Include hypertension, asthma, and cardiac disease. ALLERGIES: No known drug allergies. MEDICATIONS: Amlodipine, Lasix, hydrochlorothiazide, and metoprolol. SOCIAL HISTORY: None noted. REVIEW OF SYSTEMS: CONSTITUTIONAL: Shortness of breath noted. SKIN: No rashes, bumps, or itching. HEENT: No headache, hearing or vision changes. BREASTS: No lumps, pain, or discharge. PULMONARY: No cough, sputum. GASTROINTESTINAL: No nausea, vomiting, or diarrhea. GENITOURINARY: No dysuria, frequency, or urgency. MUSCULOSKELETAL: No joint swelling, muscle pain, or trauma. PHYSICAL EXAMINATION: VITAL SIGNS: Reviewed. GENERAL: No acute distress. PULMONARY: Decreased breath sounds. CARDIOVASCULAR: Regular rate. No S3 or S4. ABDOMEN: Soft, nontender, and nondistended. EXTREMITIES: No cyanosis, swelling, or edema. LABORATORY DATA: WBC , hemoglobin 18, hematocrit 60, and platelet count 100,000. ASSESSMENT AND RECOMMENDATIONS: 1. Erythrocytosis, which is severe, this is new for the patient. Obtain JAK2 level. In addition, obtain peripheral smear. This could be secondary to multiple causes such as dehydration. At this time, again obtain JAK2 level, iron panel, and erythropoietin level. The patient also noted to have decreased platelet count, therefore obtain hepatitis panel and HIV for evaluation, potentially secondary to polycythemia vera, JAK2 should be positive in most cases, 98% of cases. 2. Thrombocytopenia, potentially secondary to infectious process versus medications versus polycythemia vera or other disorder of the bone marrow. Hepatitis panel and HIV negative. Ultrasound of the abdomen is pending. 3. , potentially secondary to reactive process, mild. 4. Elevated creatinine, potentially secondary to chronic kidney disease. Continue to closely monitor. 5. insufficiency. 6. History of deep vein thrombosis . 7. Polycythemia, again potentially secondary to primary versus secondary. 8. Hypertension. Continue to closely monitor. I appreciate the consultation. Mahendra Marinelli M.D. DR: Tomi JOB#: [id number] CC:
[2017-10-20] MEDS: HydrALAZINE 10mg Tab ORAL SCH (05:28)
[2017-10-20 07:17] LABS: HEMOGLOBIN 16.5 G/DL (14.2-18.0); MEAN CORPUSCULAR VOLUME 92 FL (80-99); PLATELET COUNT 85 K/UL (150-450); RED BLOOD COUNT 5.53 M/UL (4.70-6.10); RED CELL DISTRIBUTION WIDTH 16.3 % (11.6-14.8); WHITE BLOOD COUNT 7.9 K/UL (4.8-10.8)
[2017-10-20 08:00] VITALS: BP 104/43
[2017-10-20 08:06] LABS: % IRON SATURATION 11 % (15-50); IRON 27 ug/dL (50-175); TOTAL IRON BINDING CAPACITY 245 ug/dL (250-450)
[2017-10-20 08:43] LABS: ALANINE AMINOTRANSFERASE 71 U/L (12-78); ALBUMIN 3.1 G/DL (3.4-5.0); ALBUMIN/GLOBULIN RATIO 1.1 (1.0-2.7); ALKALINE PHOSPHATASE 139 U/L (46-116); ANION GAP 10 mmol/L (5-15); ASPARTATE AMINO TRANSFERASE 51 U/L (15-37); BILIRUBIN,TOTAL 1.9 MG/DL (0.2-1.0); BLOOD UREA NITROGEN 73 mg/dL (7-18); CARBON DIOXIDE 31 MMOL/L (21-32); CHLORIDE 103 MMOL/L (98-107); CHOLESTEROL 147 MG/DL (< 200); CREATINE KINASE 234 U/L (26-308); CREATININE 3.6 MG/DL (0.55-1.30); FERRITIN 186 NG/ML (8-388); GAMMA GLUTAMYL TRANSPEPTIDASE 6 U/L (5-85); HDL CHOLESTEROL 39 MG/DL (40-60); PHOSPHORUS 4.8 MG/DL (2.5-4.9); POTASSIUM 4.8 MMOL/L (3.5-5.1); SODIUM 144 MMOL/L (136-145); TRIGLYCERIDES 75 MG/DL (30-150)
[2017-10-20 08:46] LABS: BILIRUBIN,DIRECT < 0.1 MG/DL (0.0-0.3)
[2017-10-20] MEDS: Heparin 5000 units/ml inj SUBQ SCH ×2 (09:00→21:00)
[2017-10-20] MEDS: Tamsulosin 0.4mg cap ORAL SCH ×2 (09:09→17:28)
--- NOTE | 2017-10-20 09:51 | Pulmonology Progress Note ---
Assessment/Plan Problems: (1) Respiratory distress (2) Peripheral edema (3) Cardiomyopathy (4) CHF (congestive heart failure) (5) HTN (hypertension) (6) CKD (chronic kidney disease) (7) Malnutrition Assessment/Plan echo noted, EF is 10% on lasix 40Q8 IV 24 urine collection in process might need HD soon not putting out much urine. Subjective ROS Limited/Unobtainable: No Interval Events: doing better Allergies: Coded Allergies: No Known Allergies (Unverified , 01/09/14) Objective Last 24 Hour Vital Signs Date Time Temp Pulse Resp B/P (MAP) Pulse Ox O2 Delivery O2 Flow Rate FiO2 10/20/17 05:28 114/66 10/20/17 05:27 114/66 10/20/17 04:00 66 10/20/17 04:00 96.8 70 18 114/66 97 Room Air 96.8 10/20/17 00:21 117/72 10/20/17 00:00 65 10/20/17 00:00 96.8 67 20 117/72 100 Room Air 96.8 10/19/17 21:17 123/86 10/19/17 20:00 72 10/19/17 20:00 97.0 69 20 123/86 95 Room Air 97.0 10/19/17 17:22 122/93 10/19/17 16:00 79 10/19/17 13:03 132/93 10/19/17 13:02 132/93 10/19/17 12:00 83 Intake and Output 10/19/17 10/20/17 19:00 07:00 Intake Total 360 ml 400 ml Output Total 450 ml Balance -90 ml 400 ml Intake Oral 360 ml 400 ml Output Urine Total 450 ml # Voids 2 # Bowel Movements 2 Objective General Appearance: WD/WN Lines, tubes and drains: peripheral HEENT: normocephalic, atraumatic Neck: non-tender, normal alignment Respiratory/Chest: chest wall non-tender, lungs clear Breasts: no masses Cardiovascular/Chest: normal peripheral pulses, normal rate Abdomen: normal bowel sounds, non tender Genitourinary/Rectal: normal genital exam, heme negative stool Extremities: normal range of motion, non-tender, + edema Skin Exam: normal pigmentation Laboratory Tests 10/19/17 11:00: White Blood Count 11.7H, Red Blood Count 6.42H, Hemoglobin 18.8*H, Hematocrit 60.8H, Mean Corpuscular Volume 95, Mean Corpuscular Hemoglobin 29.3, Mean Corpuscular Hemoglobin Concent 31.0L, Red Cell Distribution Width 16.5H, Platelet Count 102L, Mean Platelet Volume 11.3H, Neutrophils (%) (Auto) , Lymphocytes (%) (Auto) , Monocytes (%) (Auto) , Eosinophils (%) (Auto) , Basophils (%) (Auto) , Differential Total Cells Counted 100, Neutrophils % ( Manual) 86H, Lymphocytes % (Manual) 8L, Monocytes % (Manual) 6, Eosinophils % ( Manual) 0, Basophils % (Manual) 0, Band Neutrophils 0, Platelet Estimate DecreasedL, Platelet Morphology Normal, Red Blood Cell Morphology Normal, Sodium Level 143, Potassium Level 4.9, Chloride Level 102, Carbon Dioxide Level 27, Anion Gap 14, Blood Urea Nitrogen 76H, Creatinine 3.8H, Estimat Glomerular Filtration Rate , Glucose Level 110H, Calcium Level 9.6, Phosphorus Level 5.8H, Troponin I 0.128H, C-Reactive Protein, Quantitative 2.9H, Albumin 3.4, HIV (1&2 ) Antibody Rapid Negative 10/19/17 21:00: Haptoglobin [Pending], Jak2 V617F Mutation Detection [Pending], JAK2 V617F Mutation Background [Pending], JAK2 V617F Reviewed By [Pending], Soluble Transferrin Receptor [Pending], Erythropoietin [Pending], Lactate Dehydrogenase 348H, Vitamin B12 Level 1227H, Hepatitis A IgM Antibody [Pending], Hepatitis B Surface Antigen [Pending], Hepatitis B Core IgM Antibody [Pending], Hepatitis C Antibody [Pending] 10/20/17 05:20: White Blood Count 7.9, Red Blood Count 5.53, Hemoglobin 16.5, Hematocrit 51.0, Mean Corpuscular Volume 92, Mean Corpuscular Hemoglobin 29.8, Mean Corpuscular Hemoglobin Concent 32.3, Red Cell Distribution Width 16.3H, Platelet Count 85L, Mean Platelet Volume 9.6, Neutrophils (%) (Auto) , Lymphocytes (%) (Auto) , Monocytes (%) (Auto) , Eosinophils (%) (Auto) , Basophils (%) (Auto) , Neutrophils % (Manual) [Pending], Lymphocytes % (Manual) [Pending], Platelet Estimate [Pending], Platelet Morphology [Pending], Sodium Level 144, Potassium Level 4.8, Chloride Level 103, Carbon Dioxide Level 31, Anion Gap 10, Blood Urea Nitrogen 73H, Creatinine 3.6H, Estimat Glomerular Filtration Rate , Glucose Level 120H, Calcium Level 9.0, Phosphorus Level 4.8, Troponin I 0.096H, Albumin 3.1L, Hemoglobin A1c 5.9, Uric Acid 19.9H, Magnesium Level 2.2, Iron Level 27L, Total Iron Binding Capacity 245L, Percent Iron Saturation 11L, Unsaturated Iron Binding 218, Ferritin 186, Total Bilirubin 1.9H, Direct Bilirubin < 0.1, Gamma Glutamyl Transpeptidase 6, Aspartate Amino Transf (AST/ SGOT) 51H, Alanine Aminotransferase (ALT/SGPT) 71, Alkaline Phosphatase 139H, Total Creatine Kinase 234, Pro-B-Type Natriuretic Peptide [id number], Total Protein 5.8L, Globulin 2.7, Albumin/Globulin Ratio 1.1, Triglycerides Level 75, Cholesterol Level 147, LDL Cholesterol 97, HDL Cholesterol 39L, Cholesterol/HDL Ratio 3.8, Thyroid Stimulating Hormone (TSH) 0.518 Current Medications Medications (Trade) Dose Ordered Sig/Denny Route PRN Reason Start Time Stop Time Status Last Admin Dose Admin Acetaminophen (Tylenol) 650 mg Q4H PRN ORAL Fever 10/18/17 23:30 11/17/17 23:29 Albuterol/ Ipratropium (Albuterol/ Ipratropium) 3 ml EVERY 4 HOURS PRN HHN Shortness of Breath 10/18/17 23:30 10/23/17 23:29 Dextrose (Dextrose 50%) STAT PRN IV Hypoglycemia 10/18/17 23:30 11/17/17 23:29 Furosemide (Lasix) 40 mg EVERY 8 HOURS IV 10/19/17 06:00 11/18/17 05:59 10/20/17 05:26 Heparin Sodium (Porcine) (Heparin 5000 units/ml) 5,000 units EVERY 12 HOURS SUBQ 10/19/17 09:00 11/18/17 08:59 10/19/17 21:17 Hydralazine HCl (Apresoline) 20 mg Q8HR ORAL 10/19/17 14:00 11/18/17 13:59 10/20/17 05:28 Isosorbide Dinitrate (Isordil) 10 mg Q6HR ORAL 10/19/17 12:15 11/18/17 12:14 10/20/17 05:27 Ondansetron HCl (Zofran) 4 mg Q6H PRN IVP Nausea & Vomiting 10/18/17 23:30 11/17/17 23:29 Polyethylene Glycol (Miralax) 17 gm DAILYPRN PRN ORAL Constipation 10/18/17 23:30 11/17/17 23:29 Prednisone (predniSONE) 40 mg DAILY ORAL 10/19/17 09:00 11/18/17 08:59 10/20/17 09:09 Tamsulosin HCl (Flomax) 0.4 mg BID ORAL 10/19/17 18:30 11/18/17 18:29 10/20/17 09:09 Temazepam (Restoril) 15 mg HSPRN PRN ORAL Insomnia 10/18/17 23:30 10/25/17 23:29 AVRIL BANKS Oct 20, 2017 09:51
[2017-10-20 12:00] VITALS: BP 99/53
--- NOTE | 2017-10-20 12:54 | Nephrology Progress Note ---
Assessment/Plan Problem List: (1) CKD (chronic kidney disease) (2) Cardiomyopathy (3) Elevated troponin Assessment FIONA on CKD to cardiorenal chronic systolic heart failure Right heart failuer Edema due to above and possible venous insuf Non-ischemic cardiomyopathy no cad by cath 2016 History of DVT none now polycythemia unclear etiology should eval to see if primary or secondary pulmonary HTn Thrombocytopenia HTN Plan Plan; Optimize cardiac status monitor renal parameters 24 H urine for CrCl Avoid nephrotoxics may require HD and UF echo: Severe global left ventricular hypokinesis with septal thinning. Left ventricular ejection fraction estimated to be 10-15 %. Subjective ROS Limited/Unobtainable: No Constitutional: Reports: malaise, weakness Objective Objective Last 24 Hour Vital Signs Date Time Temp Pulse Resp B/P (MAP) Pulse Ox O2 Delivery O2 Flow Rate FiO2 10/20/17 12:00 105/65 10/20/17 08:00 62 10/20/17 05:28 114/66 10/20/17 05:27 114/66 10/20/17 04:00 66 10/20/17 04:00 96.8 70 18 114/66 97 Room Air 96.8 10/20/17 00:21 117/72 10/20/17 00:00 65 10/20/17 00:00 96.8 67 20 117/72 100 Room Air 96.8 10/19/17 21:17 123/86 10/19/17 20:00 72 10/19/17 20:00 97.0 69 20 123/86 95 Room Air 97.0 10/19/17 17:22 122/93 10/19/17 16:00 79 10/19/17 13:03 132/93 10/19/17 13:02 132/93 Intake and Output 10/19/17 10/20/17 19:00 07:00 Intake Total 360 ml 400 ml Output Total 450 ml Balance -90 ml 400 ml Intake Oral 360 ml 400 ml Output Urine Total 450 ml # Voids 2 # Bowel Movements 2 Laboratory Tests 10/19/17 21:00: Haptoglobin [Pending], Jak2 V617F Mutation Detection [Pending], JAK2 V617F Mutation Background [Pending], JAK2 V617F Reviewed By [Pending], Soluble Transferrin Receptor [Pending], Erythropoietin [Pending], Lactate Dehydrogenase 348H, Vitamin B12 Level 1227H, Hepatitis A IgM Antibody [Pending], Hepatitis B Surface Antigen [Pending], Hepatitis B Core IgM Antibody [Pending], Hepatitis C Antibody [Pending] 10/20/17 05:20: White Blood Count 7.9, Red Blood Count 5.53, Hemoglobin 16.5, Hematocrit 51.0, Mean Corpuscular Volume 92, Mean Corpuscular Hemoglobin 29.8, Mean Corpuscular Hemoglobin Concent 32.3, Red Cell Distribution Width 16.3H, Platelet Count 85L, Mean Platelet Volume 9.6, Neutrophils (%) (Auto) , Lymphocytes (%) (Auto) , Monocytes (%) (Auto) , Eosinophils (%) (Auto) , Basophils (%) (Auto) , Differential Total Cells Counted 100, Neutrophils % (Manual) 87H, Lymphocytes % (Manual) 6L, Monocytes % (Manual) 7, Eosinophils % (Manual) 0, Basophils % ( Manual) 0, Band Neutrophils 0, Platelet Estimate DecreasedL, Platelet Morphology Normal, Red Blood Cell Morphology Normal, Sodium Level 144, Potassium Level 4.8, Chloride Level 103, Carbon Dioxide Level 31, Anion Gap 10, Blood Urea Nitrogen 73H, Creatinine 3.6H, Estimat Glomerular Filtration Rate , Glucose Level 120H, Hemoglobin A1c 5.9, Uric Acid 19.9H, Calcium Level 9.0, Phosphorus Level 4.8, Magnesium Level 2.2, Iron Level 27L, Total Iron Binding Capacity 245L, Percent Iron Saturation 11L, Unsaturated Iron Binding 218, Ferritin 186, Total Bilirubin 1.9H, Direct Bilirubin < 0.1, Gamma Glutamyl Transpeptidase 6, Aspartate Amino Transf (AST/SGOT) 51H, Alanine Aminotransferase (ALT/SGPT) 71, Alkaline Phosphatase 139H, Total Creatine Kinase 234, Troponin I 0.096H, Pro-B-Type Natriuretic Peptide [id number], Total Protein 5.8L, Albumin 3.1L, Globulin 2.7, Albumin/Globulin Ratio 1.1, Triglycerides Level 75, Cholesterol Level 147, LDL Cholesterol 97, HDL Cholesterol 39L, Cholesterol/HDL Ratio 3.8, Thyroid Stimulating Hormone (TSH) 0.518 Height (Feet): 5 Height (Inches): 10.00 Weight (Pounds): 163 General Appearance: no apparent distress, lethargic Cardiovascular: normal rate Respiratory/Chest: decreased breath sounds Abdomen: distended [facility] 7, 2018 12:54
[2017-10-20] MEDS: HydrALAZINE 25mg tab ORAL SCH ×2 (13:32→22:37)
[2017-10-20 16:00] VITALS: BP 121/77
--- NOTE | 2017-10-20 17:00 | Wound Care Consultation ---
Wound Assessment Wound Assessment : Wound Number: 1 Wound Present on Admission: Yes New Wound: No Status Change of Wound: No Wound Location Body Site: perineal area Wound Type: chemical burn Camelia Test: Does not Camelia Percent of Wound [place]/Red: 100 Wound Drainage Amount: None Wound Drainage Odor: None/Absent Tissue Surrounding Wound: Macerated Wound General Appearance: Reddened, Open to air Wound Comment # 1 perineal chemical burn RECOMMENDATION -local protocol as ordered. -keep clean and dry. -pericare prn. -assess and notify MD if any change of condition to skin is present. REED JUAREZ Oct 20, 2017 17:00
--- NOTE | 2017-10-20 19:27 | Cardiology Progress Note ---
Assessment/Plan Assessment/Plan 1. Peripheral edema, due to right heart failure. 2. History of nonischemic cardiomyopathy ejection fraction of 15%. 3. History of right ventricular failure with pulmonary hypertension 4. Medication noncompliance. 5. Acute renal insufficiency with creatinine increased from baseline of 1.3. 6. Azotemia. 7. Chronic congestive heart failure class 3. 8. Thrombocytopenia, appears to be chronic in nature. 9. Polycythemia. dobutamin infuseion at fixed 2.5 mcg / kg / min tomorrow for 2-3 days to see if help with rv function lasix q8h isordil hydralazien combination off acei due to increased cr improtace of compaince d/wpt diet adn fludi restriction d/w pt Subjective Cardiovascular: Denies: chest pain, lightheadedness Respiratory: Denies: shortness of breath Gastrointestinal/Abdominal: Denies: abdominal pain Genitourinary: Denies: burning Subjective leg edema was sittign uprigh all day Objective Last 24 Hour Vital Signs Date Time Temp Pulse Resp B/P (MAP) Pulse Ox O2 Delivery O2 Flow Rate FiO2 10/20/17 17:28 121/77 10/20/17 16:00 68 10/20/17 16:00 96.7 72 20 121/77 98 Room Air 96.7 10/20/17 12:00 105/65 10/20/17 12:00 97.9 67 20 99/53 96 Room Air 97.9 10/20/17 12:00 66 10/20/17 08:00 97.2 64 20 104/43 96 Room Air 97.2 10/20/17 08:00 62 10/20/17 05:28 114/66 10/20/17 05:27 114/66 10/20/17 04:00 66 10/20/17 04:00 96.8 70 18 114/66 97 Room Air 96.8 10/20/17 00:21 117/72 10/20/17 00:00 65 10/20/17 00:00 96.8 67 20 117/72 100 Room Air 96.8 10/19/17 21:17 123/86 10/19/17 20:00 72 10/19/17 20:00 97.0 69 20 123/86 95 Room Air 97.0 General Appearance: no apparent distress, alert Cardiovascular: normal rate Respiratory/Chest: expiratory wheezing Abdomen: normal bowel sounds, non tender, soft Extremities: moderate edema Intake and Output 10/19/17 10/20/17 19:00 07:00 Intake Total 360 ml 400 ml Output Total 450 ml Balance -90 ml 400 ml Intake Oral 360 ml 400 ml Output Urine Total 450 ml # Voids 2 # Bowel Movements 2 Laboratory Tests Test 10/19/17 21:00 10/20/17 05:20 Haptoglobin Pending Jak2 V617F Mutation Detection Pending JAK2 V617F Mutation Background Pending JAK2 V617F Reviewed By Pending Soluble Transferrin Receptor Pending Erythropoietin Pending Lactate Dehydrogenase 348 U/L (81-234) H Vitamin B12 Level 1227 PG/ML (193-986) H Hepatitis A IgM Antibody Pending Hepatitis B Surface Antigen Pending Hepatitis B Core IgM Antibody Pending Hepatitis C Antibody Pending White Blood Count 7.9 K/UL (4.8-10.8) Red Blood Count 5.53 M/UL (4.70-6.10) Hemoglobin 16.5 G/DL (14.2-18.0) Hematocrit 51.0 % (42.0-52.0) Mean Corpuscular Volume 92 FL (80-99) Mean Corpuscular Hemoglobin 29.8 PG (27.0-31.0) Mean Corpuscular Hemoglobin Concent 32.3 G/DL (32.0-36.0) Red Cell Distribution Width 16.3 % (11.6-14.8) H Platelet Count 85 K/UL (150-450) L Mean Platelet Volume 9.6 FL (6.5-10.1) Neutrophils (%) (Auto) % (45.0-75.0) Lymphocytes (%) (Auto) % (20.0-45.0) Monocytes (%) (Auto) % (1.0-10.0) Eosinophils (%) (Auto) % (0.0-3.0) Basophils (%) (Auto) % (0.0-2.0) Differential Total Cells Counted 100 Neutrophils % (Manual) 87 % (45-75) H Lymphocytes % (Manual) 6 % (20-45) L Monocytes % (Manual) 7 % (1-10) Eosinophils % (Manual) 0 % (0-3) Basophils % (Manual) 0 % (0-2) Band Neutrophils 0 % (0-8) Platelet Estimate Decreased L Platelet Morphology Normal Red Blood Cell Morphology Normal Sodium Level 144 MMOL/L (136-145) Potassium Level 4.8 MMOL/L (3.5-5.1) Chloride Level 103 MMOL/L (98-107) Carbon Dioxide Level 31 MMOL/L (21-32) Anion Gap 10 mmol/L (5-15) Blood Urea Nitrogen 73 mg/dL (7-18) H Creatinine 3.6 MG/DL (0.55-1.30) H Estimat Glomerular Filtration Rate mL/min (>60) Glucose Level 120 MG/DL (74-106) H Hemoglobin A1c 5.9 % (4.3-6.0) Uric Acid 19.9 MG/DL (2.6-7.2) H Calcium Level 9.0 MG/DL (8.5-10.1) Phosphorus Level 4.8 MG/DL (2.5-4.9) Magnesium Level 2.2 MG/DL (1.8-2.4) Iron Level 27 ug/dL (50-175) L Total Iron Binding Capacity 245 ug/dL (250-450) L Percent Iron Saturation 11 % (15-50) L Unsaturated Iron Binding 218 ug/dL (112-346) Ferritin 186 NG/ML (8-388) Total Bilirubin 1.9 MG/DL (0.2-1.0) H Direct Bilirubin < 0.1 MG/DL (0.0-0.3) Gamma Glutamyl Transpeptidase 6 U/L (5-85) Aspartate Amino Transf (AST/SGOT) 51 U/L (15-37) H Alanine Aminotransferase (ALT/SGPT) 71 U/L (12-78) Alkaline Phosphatase 139 U/L (46-116) H Total Creatine Kinase 234 U/L (26-308) Troponin I 0.096 ng/mL (0.000-0.056) Pro-B-Type Natriuretic Peptide 65791 pg/mL (0-125) H Total Protein 5.8 G/DL (6.4-8.2) L Albumin 3.1 G/DL (3.4-5.0) L Globulin 2.7 g/dL Albumin/Globulin Ratio 1.1 (1.0-2.7) Triglycerides Level 75 MG/DL (30-150) Cholesterol Level 147 MG/DL (< 200) LDL Cholesterol 97 mg/dL (<100) HDL Cholesterol 39 MG/DL (40-60) L Cholesterol/HDL Ratio 3.8 (3.3-4.4) Thyroid Stimulating Hormone (TSH) 0.518 uiU/mL (0.358-3.740) MIMI OHARA Oct 20, 2017 19:27
[2017-10-20 20:00] VITALS: BP 124/71
[2017-10-20 21:08] LABS: CREATININE 3.8 MG/DL (0.55-1.30)
--- NOTE | 2017-10-20 21:26 | Internal Med Progress Note ---
Subjective Date of Service: Oct 20, 2017 Physician Name Madelaine Tobias Attending Physician Madelaine Tobias Past Medical History reviewed. no change Past Surgical History reviewed no change Current Medications Medications (Trade) Dose Ordered Sig/Denny Route PRN Reason Start Time Stop Time Status Last Admin Dose Admin Acetaminophen (Tylenol) 650 mg Q4H PRN ORAL Fever 10/18/17 23:30 11/17/17 23:29 Albuterol/ Ipratropium (Albuterol/ Ipratropium) 3 ml EVERY 4 HOURS PRN HHN Shortness of Breath 10/18/17 23:30 10/23/17 23:29 Allopurinol (Allopurinol) 300 mg DAILY ORAL 10/21/17 09:00 11/20/17 08:59 Dextrose (Dextrose 50%) STAT PRN IV Hypoglycemia 10/18/17 23:30 11/17/17 23:29 Dobutamine HCl 250 ml @ 0 mls/hr Q24H IV 10/21/17 08:00 11/20/17 07:59 UNV Furosemide (Lasix) 40 mg EVERY 8 HOURS IV 10/19/17 06:00 11/18/17 05:59 10/20/17 13:32 Heparin Sodium (Porcine) (Heparin 5000 units/ml) 5,000 units EVERY 12 HOURS SUBQ 10/19/17 09:00 11/18/17 08:59 10/19/17 21:17 Hydralazine HCl (Apresoline) 25 mg Q8HR ORAL 10/20/17 14:00 11/19/17 13:59 Isosorbide Dinitrate (Isordil) 10 mg Q6HR ORAL 10/19/17 12:15 11/18/17 12:14 10/20/17 17:28 Ondansetron HCl (Zofran) 4 mg Q6H PRN IVP Nausea & Vomiting 10/18/17 23:30 11/17/17 23:29 Polyethylene Glycol (Miralax) 17 gm DAILYPRN PRN ORAL Constipation 10/18/17 23:30 11/17/17 23:29 Prednisone (predniSONE) 40 mg DAILY ORAL 10/19/17 09:00 11/18/17 08:59 10/20/17 09:09 Tamsulosin HCl (Flomax) 0.4 mg BID ORAL 10/19/17 18:30 11/18/17 18:29 10/20/17 17:28 Temazepam (Restoril) 15 mg HSPRN PRN ORAL Insomnia 10/18/17 23:30 10/25/17 23:29 Allergies: Coded Allergies: No Known Allergies (Unverified , 01/09/14) Social History reviewed no change Cardiovascular: Reports: edema, lightheadedness, palpitations Respiratory: Reports: cough, shortness of breath Gastrointestinal/Abdominal: Reports: no symptoms Genitourinary: Reports: no symptoms Neurologic/Psychiatric: Reports: no symptoms Objective Last Vital Signs Date Time Temp Pulse Resp B/P (MAP) Pulse Ox O2 Delivery O2 Flow Rate FiO2 10/20/17 20:00 97.0 81 20 124/71 98 Room Air 97.0 General Appearance: no apparent distress, alert EENT: pharynx normal Neck: non-tender, supple Cardiovascular: regular rhythm, no JVD, systolic murmur Respiratory/Chest: rhonchi - bilaterally Abdomen: normal bowel sounds, non tender, soft, no mass Edema: moderate edema Neurologic: no motor/sensory deficits Skin: warm/dry, no diaphoresis Laboratory Tests Test 10/20/17 05:20 White Blood Count 7.9 K/UL (4.8-10.8) Red Blood Count 5.53 M/UL (4.70-6.10) Hemoglobin 16.5 G/DL (14.2-18.0) Hematocrit 51.0 % (42.0-52.0) Mean Corpuscular Volume 92 FL (80-99) Mean Corpuscular Hemoglobin 29.8 PG (27.0-31.0) Mean Corpuscular Hemoglobin Concent 32.3 G/DL (32.0-36.0) Red Cell Distribution Width 16.3 % (11.6-14.8) H Platelet Count 85 K/UL (150-450) L Mean Platelet Volume 9.6 FL (6.5-10.1) Neutrophils (%) (Auto) % (45.0-75.0) Lymphocytes (%) (Auto) % (20.0-45.0) Monocytes (%) (Auto) % (1.0-10.0) Eosinophils (%) (Auto) % (0.0-3.0) Basophils (%) (Auto) % (0.0-2.0) Differential Total Cells Counted 100 Neutrophils % (Manual) 87 % (45-75) H Lymphocytes % (Manual) 6 % (20-45) L Monocytes % (Manual) 7 % (1-10) Eosinophils % (Manual) 0 % (0-3) Basophils % (Manual) 0 % (0-2) Band Neutrophils 0 % (0-8) Platelet Estimate Decreased L Platelet Morphology Normal Red Blood Cell Morphology Normal Sodium Level 144 MMOL/L (136-145) Potassium Level 4.8 MMOL/L (3.5-5.1) Chloride Level 103 MMOL/L (98-107) Carbon Dioxide Level 31 MMOL/L (21-32) Anion Gap 10 mmol/L (5-15) Blood Urea Nitrogen 73 mg/dL (7-18) H Creatinine 3.6 MG/DL (0.55-1.30) H Estimat Glomerular Filtration Rate mL/min (>60) Glucose Level 120 MG/DL (74-106) H Hemoglobin A1c 5.9 % (4.3-6.0) Uric Acid 19.9 MG/DL (2.6-7.2) H Calcium Level 9.0 MG/DL (8.5-10.1) Phosphorus Level 4.8 MG/DL (2.5-4.9) Magnesium Level 2.2 MG/DL (1.8-2.4) Iron Level 27 ug/dL (50-175) L Total Iron Binding Capacity 245 ug/dL (250-450) L Percent Iron Saturation 11 % (15-50) L Unsaturated Iron Binding 218 ug/dL (112-346) Ferritin 186 NG/ML (8-388) Total Bilirubin 1.9 MG/DL (0.2-1.0) H Direct Bilirubin < 0.1 MG/DL (0.0-0.3) Gamma Glutamyl Transpeptidase 6 U/L (5-85) Aspartate Amino Transf (AST/SGOT) 51 U/L (15-37) H Alanine Aminotransferase (ALT/SGPT) 71 U/L (12-78) Alkaline Phosphatase 139 U/L (46-116) H Total Creatine Kinase 234 U/L (26-308) Troponin I 0.096 ng/mL (0.000-0.056) Pro-B-Type Natriuretic Peptide 05640 pg/mL (0-125) H Total Protein 5.8 G/DL (6.4-8.2) L Albumin 3.1 G/DL (3.4-5.0) L Globulin 2.7 g/dL Albumin/Globulin Ratio 1.1 (1.0-2.7) Triglycerides Level 75 MG/DL (30-150) Cholesterol Level 147 MG/DL (< 200) LDL Cholesterol 97 mg/dL (<100) HDL Cholesterol 39 MG/DL (40-60) L Cholesterol/HDL Ratio 3.8 (3.3-4.4) Thyroid Stimulating Hormone (TSH) 0.518 uiU/mL (0.358-3.740) Intake and Output 10/19/17 10/20/17 19:00 07:00 Intake Total 360 ml 400 ml Output Total 450 ml Balance -90 ml 400 ml Intake Oral 360 ml 400 ml Output Urine Total 450 ml # Voids 2 # Bowel Movements 2 Assessment/Plan Status: progressing Assessment/Plan 1. Acute on chronic left-sided heart failure. 2. History of cardiomyopathy. 3. Lower extremity edema. 4. Nonischemic cardiomyopathy, status post cardiac catheterization in 2015. 5. Polycythemia. 6. Hypertension. 7. Thrombocytopenia. 8. Hyperlipidemia. 9. Chronic kidney disease, stage 3-4. Plan: dobutamine infusion lasix IV diuresis monitor urine outpt TTE noted EF 15% pulm HHN may end upon hD soon electrolyte replete hem consult noted for polycythemia DVt/GI prophylasix all questions answered. 40 min spent today MADELAINE TOBIAS Oct 20, 2017 21:26
[2017-10-21 00:18] VITALS: BP 124/87
--- NOTE | 2017-10-21 01:05 | General Progress Note ---
Assessment/Plan Assessment/Plan 1. Erythrocytosis, which is severe, this is new for the patient. --> Iron 27, TIBC 145, Ferritin 186, B12 1227 --> JAK2 Pending. In addition, obtain peripheral smear. This could be secondary to multiple causes such as dehydration. --> At this time, again obtain JAK2 level, iron panel, and erythropoietin level. 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 2. Thrombocytopenia, potentially secondary to infectious process versus medications versus polycythemia vera or other disorder of the bone marrow. --> Pending HIV and Hep panel. --> Ultrasound of the abdomen is pending. 3. Leukocytosis, potentially secondary to reactive process, mild. --> Monitor for improvement. 4. Elevated creatinine, potentially secondary to chronic kidney disease. Continue to closely monitor. 5. Renal insufficiency. 6. History of deep vein thrombosis. 7. Polycythemia, again potentially secondary to primary versus secondary. 8. Hypertension. Continue to closely monitor. Subjective Date patient seen: Oct 20, 2017 Constitutional: Denies: no symptoms, chills, diaphoresis, fever, malaise, weakness, other HEENT: Denies: no symptoms, eye pain, blurred vision, tearing, double vision, ear pain, ear discharge, nose pain, nose congestion, throat pain, throat swelling, mouth pain, mouth swelling, other Cardiovascular: Denies: no symptoms, chest pain, edema, irregular heart rate, lightheadedness, palpitations, syncope, other Respiratory: Denies: no symptoms, cough, orthopnea, shortness of breath, SOB with excertion, SOB at rest, sputum, stridor, wheezing, other Gastrointestinal/Abdominal: Denies: no symptoms, abdomen distended, abdominal pain, black stools, tarry stools, blood in stool, constipated, diarrhea, difficulty swallowing, nausea, poor appetite, poor fluid intake, rectal bleeding , vomiting, other Genitourinary: Denies: no symptoms, burning, discharge, frequency, flank pain, hematuria, incontinence, pain, urgency, other Neurologic/Psychiatric: Denies: no symptoms, anxiety, depressed, emotional problems, headache, numbness, paresthesia, pre-existing deficit, seizure, tingling, tremors, weakness, other Allergies: Coded Allergies: No Known Allergies (Unverified , 01/09/14) Subjective Hgb remains high. No fever or chills. Objective Last 24 Hour Vital Signs Date Time Temp Pulse Resp B/P (MAP) Pulse Ox O2 Delivery O2 Flow Rate FiO2 10/21/17 00:18 97.0 76 20 124/87 98 Room Air 97.0 10/20/17 23:56 68 10/20/17 22:37 127/89 10/20/17 20:27 68 10/20/17 20:00 97.0 81 20 124/71 98 Room Air 97.0 10/20/17 17:28 121/77 10/20/17 16:00 68 10/20/17 16:00 96.7 72 20 121/77 98 Room Air 96.7 10/20/17 12:00 105/65 10/20/17 12:00 97.9 67 20 99/53 96 Room Air 97.9 10/20/17 12:00 66 10/20/17 08:00 97.2 64 20 104/43 96 Room Air 97.2 10/20/17 08:00 62 10/20/17 05:28 114/66 10/20/17 05:27 114/66 10/20/17 04:00 66 10/20/17 04:00 96.8 70 18 114/66 97 Room Air 96.8 Intake and Output 10/20/17 10/21/17 19:00 07:00 Intake Total 600 ml Output Total 850 ml 1500 ml Balance -250 ml -1500 ml Intake Oral 600 ml Output Urine Total 850 ml 1500 ml # Voids 2 Laboratory Tests 10/20/17 05:20: White Blood Count 7.9, Red Blood Count 5.53, Hemoglobin 16.5, Hematocrit 51.0, Mean Corpuscular Volume 92, Mean Corpuscular Hemoglobin 29.8, Mean Corpuscular Hemoglobin Concent 32.3, Red Cell Distribution Width 16.3H, Platelet Count 85L, Mean Platelet Volume 9.6, Neutrophils (%) (Auto) , Lymphocytes (%) (Auto) , Monocytes (%) (Auto) , Eosinophils (%) (Auto) , Basophils (%) (Auto) , Differential Total Cells Counted 100, Neutrophils % (Manual) 87H, Lymphocytes % (Manual) 6L, Monocytes % (Manual) 7, Eosinophils % (Manual) 0, Basophils % ( Manual) 0, Band Neutrophils 0, Platelet Estimate DecreasedL, Platelet Morphology Normal, Red Blood Cell Morphology Normal, Sodium Level 144, Potassium Level 4.8, Chloride Level 103, Carbon Dioxide Level 31, Anion Gap 10, Blood Urea Nitrogen 73H, Creatinine 3.6H, Estimat Glomerular Filtration Rate , Glucose Level 120H, Hemoglobin A1c 5.9, Uric Acid 19.9H, Calcium Level 9.0, Phosphorus Level 4.8, Magnesium Level 2.2, Iron Level 27L, Total Iron Binding Capacity 245L, Percent Iron Saturation 11L, Unsaturated Iron Binding 218, Ferritin 186, Total Bilirubin 1.9H, Direct Bilirubin < 0.1, Gamma Glutamyl Transpeptidase 6, Aspartate Amino Transf (AST/SGOT) 51H, Alanine Aminotransferase (ALT/SGPT) 71, Alkaline Phosphatase 139H, Total Creatine Kinase 234, Troponin I 0.096H, Pro-B-Type Natriuretic Peptide 58485L, Total Protein 5.8L, Albumin 3.1L, Globulin 2.7, Albumin/Globulin Ratio 1.1, Triglycerides Level 75, Cholesterol Level 147, LDL Cholesterol 97, HDL Cholesterol 39L, Cholesterol/HDL Ratio 3.8, Thyroid Stimulating Hormone (TSH) 0.518 10/20/17 23:50: Troponin I 0.077H Height (Feet): 5 Height (Inches): 10.00 Weight (Pounds): 163 Cardiovascular: normal rate Respiratory/Chest: decreased breath sounds Abdomen: non tender Mahendra Marinelli Oct 21, 2017 01:05
[2017-10-21 04:00] VITALS: BP 116/68
[2017-10-21] MEDS: HydrALAZINE 25mg tab ORAL SCH (05:55)
[2017-10-21 08:00] VITALS: BP 124/73
[2017-10-21] MEDS ORDERED: DOBUTamine 250mg/250ml Premix 250 ML IV SCH ×2 (08:30→11:15)
[2017-10-21 08:43] LABS: HEMOGLOBIN 16.3 G/DL (14.2-18.0); MEAN CORPUSCULAR VOLUME 93 FL (80-99); PLATELET COUNT 82 K/UL (150-450); RED BLOOD COUNT 5.48 M/UL (4.70-6.10); RED CELL DISTRIBUTION WIDTH 16.4 % (11.6-14.8); WHITE BLOOD COUNT 10.6 K/UL (4.8-10.8)
[2017-10-21] MEDS: Heparin 5000 units/ml inj SUBQ SCH ×2 (09:00→21:00)
[2017-10-21 09:18] LABS: ALANINE AMINOTRANSFERASE 72 U/L (12-78); ALBUMIN 3.4 G/DL (3.4-5.0); ALBUMIN/GLOBULIN RATIO 1.1 (1.0-2.7); ALKALINE PHOSPHATASE 139 U/L (46-116); ANION GAP 8 mmol/L (5-15); ASPARTATE AMINO TRANSFERASE 51 U/L (15-37); BILIRUBIN,DIRECT 0.9 MG/DL (0.0-0.3); BILIRUBIN,TOTAL 1.7 MG/DL (0.2-1.0); BLOOD UREA NITROGEN 61 mg/dL (7-18); CALCIUM 8.9 MG/DL (8.5-10.1); CARBON DIOXIDE 37 MMOL/L (21-32); CHLORIDE 101 MMOL/L (98-107); CREATININE 3.3 MG/DL (0.55-1.30); GAMMA GLUTAMYL TRANSPEPTIDASE 199 U/L (5-85); PHOSPHORUS 4.3 MG/DL (2.5-4.9); POTASSIUM 3.7 MMOL/L (3.5-5.1); SODIUM 145 MMOL/L (136-145)
[2017-10-21] MEDS: Tamsulosin 0.4mg cap ORAL SCH ×2 (09:47→17:47)
--- NOTE | 2017-10-21 10:52 | Pulmonolgy Critical Care Note ---
Critical Care - Asmt/Plan Problems: (1) CHF (congestive heart failure) (2) Respiratory distress (3) Peripheral edema (4) Cardiomyopathy (5) CKD (chronic kidney disease) (6) HTN (hypertension) (7) Malnutrition Respiratory: monitor respiratory rate, adjust FIO2, CXR Cardiac: continue pressors - on dobutamine, continue to monitor HR/BP Renal: F/U I&O, check electrolytes Infectious Disease: check cultures, continue antibiotics Gastrointestinal: continue feedings/current rate Endocrine: monitor blood sugar Hematologic: monitor H/H, transfuse if hgb<8.5 Neurologic: PRN Ativan, PRN Morphine, keep patient comfortable Affect: PRN ativan Notes Reviewed: traffic signal supervisor maintenance, cardio Discussed with: nurses, consultants, rehabilitation case coordinatorsoftware asset manager - Objective Last 24 Hour Vital Signs Date Time Temp Pulse Resp B/P (MAP) Pulse Ox O2 Delivery O2 Flow Rate FiO2 10/21/17 08:00 98.1 81 20 124/73 97 Room Air 98.1 10/21/17 06:48 136/77 10/21/17 05:55 116/63 10/21/17 04:00 97.0 74 20 116/68 98 Room Air 97.0 10/21/17 03:54 68 10/21/17 00:18 97.0 76 20 124/87 98 Room Air 97.0 10/20/17 23:56 68 10/20/17 22:37 127/89 10/20/17 20:27 68 10/20/17 20:00 97.0 81 20 124/71 98 Room Air 97.0 10/20/17 17:28 121/77 10/20/17 16:00 68 10/20/17 16:00 96.7 72 20 121/77 98 Room Air 96.7 10/20/17 12:00 105/65 10/20/17 12:00 97.9 67 20 99/53 96 Room Air 97.9 10/20/17 12:00 66 Status: awake Condition: critical HEENT: atraumatic, normocephalic Lungs: clear Heart: HR/BP stable Abdomen: soft, active bowel sounds Extremities: no C/C/E, edema Decubiti: location, stage Critical Care - Subjective ROS Limited/Unobtainable: No ICU Day: 1 Interval Events: comfortable, transferred to ICU to start Dobutamin drip Condition: critical I&O: Intake and Output 10/20/17 10/21/17 19:00 07:00 Intake Total 600 ml Output Total 850 ml 2250 ml Balance -250 ml -2250 ml Intake Oral 600 ml Output Urine Total 850 ml 2250 ml # Voids 5 CXR: cardiomegaly Labs: Laboratory Tests Test 10/20/17 23:50 10/21/17 07:58 Troponin I 0.077 ng/mL (0.000-0.056) White Blood Count 10.6 K/UL (4.8-10.8) Red Blood Count 5.48 M/UL (4.70-6.10) Hemoglobin 16.3 G/DL (14.2-18.0) Hematocrit 51.0 % (42.0-52.0) Mean Corpuscular Volume 93 FL (80-99) Mean Corpuscular Hemoglobin 29.8 PG (27.0-31.0) Mean Corpuscular Hemoglobin Concent 32.0 G/DL (32.0-36.0) Red Cell Distribution Width 16.4 % (11.6-14.8) H Platelet Count 82 K/UL (150-450) L Mean Platelet Volume 10.0 FL (6.5-10.1) Neutrophils (%) (Auto) % (45.0-75.0) Lymphocytes (%) (Auto) % (20.0-45.0) Monocytes (%) (Auto) % (1.0-10.0) Eosinophils (%) (Auto) % (0.0-3.0) Basophils (%) (Auto) % (0.0-2.0) Neutrophils % (Manual) Pending Lymphocytes % (Manual) Pending Platelet Estimate Pending Platelet Morphology Pending Sodium Level 145 MMOL/L (136-145) Potassium Level 3.7 MMOL/L (3.5-5.1) Chloride Level 101 MMOL/L (98-107) Carbon Dioxide Level 37 MMOL/L (21-32) H Anion Gap 8 mmol/L (5-15) Blood Urea Nitrogen 61 mg/dL (7-18) H Creatinine 3.3 MG/DL (0.55-1.30) H Estimat Glomerular Filtration Rate mL/min (>60) Glucose Level 108 MG/DL (74-106) H Uric Acid 18.6 MG/DL (2.6-7.2) H Calcium Level 8.9 MG/DL (8.5-10.1) Phosphorus Level 4.3 MG/DL (2.5-4.9) Magnesium Level 2.0 MG/DL (1.8-2.4) Total Bilirubin 1.7 MG/DL (0.2-1.0) H Direct Bilirubin 0.9 MG/DL (0.0-0.3) H Gamma Glutamyl Transpeptidase 199 U/L (5-85) H Aspartate Amino Transf (AST/SGOT) 51 U/L (15-37) H Alanine Aminotransferase (ALT/SGPT) 72 U/L (12-78) Alkaline Phosphatase 139 U/L (46-116) H Total Protein 6.4 G/DL (6.4-8.2) Albumin 3.4 G/DL (3.4-5.0) Globulin 3.0 g/dL Albumin/Globulin Ratio 1.1 (1.0-2.7) AVRIL BANKS Oct 21, 2017 10:52
--- NOTE | 2017-10-21 11:08 | Diagnostic Imaging Report ---
Indication:Abdominal pain Technique: Grayscale and duplex Doppler imaging of the abdomen performed. Comparison: None Findings: The liver, demonstrated part of the pancreas, gallbladder, aorta and IVC, both kidneys, spleen appear unremarkable. There is a 4 cm right renal cyst noted centrally. There is no biliary ductal dilatation identified. Doppler evaluation of the main portal vein shows patency. There is no ascites. No hydronephrosis seen. CBD is 5.8 mm. Impression: No acute findings. 4 cm right renal cyst
[2017-10-21] MEDS ORDERED: Albuterol/Ipratropium 3ml neb HHN PRN ×2 (13:00)
[2017-10-21] MEDS: DOBUTamine 250mg/250ml Premix 250 ML IV SCH (13:00)
--- NOTE | 2017-10-21 13:33 | Nephrology Progress Note ---
Assessment/Plan Problem List: (1) CKD (chronic kidney disease) (2) Cardiomyopathy (3) Elevated troponin Assessment FIONA on CKD to cardiorenal Cr stable 3.8 to 3.3 chronic systolic heart failure Right heart failuer Edema due to above and possible venous insuf Non-ischemic cardiomyopathy no cad by cath 2016 History of DVT none now polycythemia unclear etiology should eval to see if primary or secondary pulmonary HTn Thrombocytopenia HTN Plan Plan; Optimize cardiac status monitor renal parameters 24 H urine for CrCl Avoid nephrotoxics may require HD and UF echo: Severe global left ventricular hypokinesis with septal thinning. Left ventricular ejection fraction estimated to be 10-15 %. Subjective ROS Limited/Unobtainable: No Constitutional: Reports: malaise, weakness Objective Objective Last 24 Hour Vital Signs Date Time Temp Pulse Resp B/P (MAP) Pulse Ox O2 Delivery O2 Flow Rate FiO2 10/21/17 12:00 68 10/21/17 11:37 124/73 10/21/17 11:35 124/73 10/21/17 08:00 98.1 81 20 124/73 97 Room Air 98.1 10/21/17 08:00 68 10/21/17 06:48 136/77 10/21/17 05:55 116/63 10/21/17 04:00 97.0 74 20 116/68 98 Room Air 97.0 10/21/17 03:54 68 10/21/17 00:18 97.0 76 20 124/87 98 Room Air 97.0 10/20/17 23:56 68 10/20/17 22:37 127/89 10/20/17 20:27 68 10/20/17 20:00 97.0 81 20 124/71 98 Room Air 97.0 10/20/17 17:28 121/77 10/20/17 16:00 68 10/20/17 16:00 96.7 72 20 121/77 98 Room Air 96.7 Intake and Output 10/20/17 10/21/17 19:00 07:00 Intake Total 600 ml Output Total 850 ml 2250 ml Balance -250 ml -2250 ml Intake Oral 600 ml Output Urine Total 850 ml 2250 ml # Voids 5 Laboratory Tests 10/20/17 23:50: Troponin I 0.077H 10/21/17 07:58: White Blood Count 10.6, Red Blood Count 5.48, Hemoglobin 16.3, Hematocrit 51.0, Mean Corpuscular Volume 93, Mean Corpuscular Hemoglobin 29.8, Mean Corpuscular Hemoglobin Concent 32.0, Red Cell Distribution Width 16.4H, Platelet Count 82L, Mean Platelet Volume 10.0, Neutrophils (%) (Auto) , Lymphocytes (%) (Auto) , Monocytes (%) (Auto) , Eosinophils (%) (Auto) , Basophils (%) (Auto) , Neutrophils % (Manual) [Pending], Lymphocytes % (Manual) [Pending], Platelet Estimate [Pending], Platelet Morphology [Pending], Sodium Level 145, Potassium Level 3.7, Chloride Level 101, Carbon Dioxide Level 37H, Anion Gap 8, Blood Urea Nitrogen 61H, Creatinine 3.3H, Estimat Glomerular Filtration Rate , Glucose Level 108H, Uric Acid 18.6H, Calcium Level 8.9, Phosphorus Level 4.3, Magnesium Level 2.0, Total Bilirubin 1.7H, Direct Bilirubin 0.9H, Gamma Glutamyl Transpeptidase 199H, Aspartate Amino Transf (AST/SGOT) 51H, Alanine Aminotransferase (ALT/SGPT) 72, Alkaline Phosphatase 139H, Total Protein 6.4, Albumin 3.4, Globulin 3.0, Albumin/Globulin Ratio 1.1 Height (Feet): 5 Height (Inches): 10.00 Weight (Pounds): 163 General Appearance: no apparent distress, lethargic Cardiovascular: normal rate Respiratory/Chest: decreased breath sounds Abdomen: distended BHARATHI LOVE Oct 21, 2017 13:33
[2017-10-21] MEDS ORDERED: HydrALAZINE 25mg tab ORAL SCH ×2 (14:00)
[2017-10-21] MEDS ORDERED: Tamsulosin 0.4mg cap ORAL SCH (18:00)
--- NOTE | 2017-10-21 19:35 | Cardiology Progress Note ---
Assessment/Plan Assessment/Plan 1. Peripheral edema, due to right heart failure. 2. History of nonischemic cardiomyopathy ejection fraction of 15%. 3. History of right ventricular failure with pulmonary hypertension 4. Medication noncompliance. 5. Acute renal insufficiency with creatinine increased from baseline of 1.3. 6. Azotemia. 7. Chronic congestive heart failure class 3. 8. Thrombocytopenia, appears to be chronic in nature. 9. Polycythemia. dobutamin infuseion at fixed 2.5 mcg / kg / min for 2-3 days to see if help with rv function lasix q8h isordil hydralazien combination increae hydralazien off acei due to increased cr improtace of compaince d/wpt diet adn fludi restriction d/w pt watch renal fucntion hoepfully will improve some Subjective Cardiovascular: Denies: chest pain, irregular heart rate, lightheadedness, palpitations Respiratory: Denies: shortness of breath Gastrointestinal/Abdominal: Denies: abdominal pain Genitourinary: Denies: burning Subjective was able to walk to br without any so nor dizziness Objective Last 24 Hour Vital Signs Date Time Temp Pulse Resp B/P (MAP) Pulse Ox O2 Delivery O2 Flow Rate FiO2 10/21/17 17:47 144/68 10/21/17 16:00 88 10/21/17 13:47 144/68 10/21/17 13:00 144/68 10/21/17 12:00 68 10/21/17 11:37 124/73 10/21/17 11:35 124/73 10/21/17 08:00 98.1 81 20 124/73 97 Room Air 98.1 10/21/17 08:00 68 10/21/17 06:48 136/77 10/21/17 05:55 116/63 10/21/17 04:00 97.0 74 20 116/68 98 Room Air 97.0 10/21/17 03:54 68 10/21/17 00:18 97.0 76 20 124/87 98 Room Air 97.0 10/20/17 23:56 68 10/20/17 22:37 127/89 10/20/17 20:27 68 10/20/17 20:00 97.0 81 20 124/71 98 Room Air 97.0 General Appearance: alert Neck: supple Cardiovascular: normal rate Respiratory/Chest: lungs clear, normal breath sounds Abdomen: normal bowel sounds, non tender Extremities: moderate edema Intake and Output 10/20/17 10/21/17 19:00 07:00 Intake Total 600 ml Output Total 850 ml 2250 ml Balance -250 ml -2250 ml Intake Oral 600 ml Output Urine Total 850 ml 2250 ml # Voids 5 Laboratory Tests Test 10/20/17 23:50 10/21/17 07:58 Troponin I 0.077 ng/mL (0.000-0.056) White Blood Count 10.6 K/UL (4.8-10.8) Red Blood Count 5.48 M/UL (4.70-6.10) Hemoglobin 16.3 G/DL (14.2-18.0) Hematocrit 51.0 % (42.0-52.0) Mean Corpuscular Volume 93 FL (80-99) Mean Corpuscular Hemoglobin 29.8 PG (27.0-31.0) Mean Corpuscular Hemoglobin Concent 32.0 G/DL (32.0-36.0) Red Cell Distribution Width 16.4 % (11.6-14.8) H Platelet Count 82 K/UL (150-450) L Mean Platelet Volume 10.0 FL (6.5-10.1) Neutrophils (%) (Auto) % (45.0-75.0) Lymphocytes (%) (Auto) % (20.0-45.0) Monocytes (%) (Auto) % (1.0-10.0) Eosinophils (%) (Auto) % (0.0-3.0) Basophils (%) (Auto) % (0.0-2.0) Differential Total Cells Counted 100 Neutrophils % (Manual) 90 % (45-75) H Lymphocytes % (Manual) 3 % (20-45) L Monocytes % (Manual) 6 % (1-10) Eosinophils % (Manual) 0 % (0-3) Basophils % (Manual) 0 % (0-2) Band Neutrophils 1 % (0-8) Platelet Estimate Decreased L Platelet Morphology Normal Anisocytosis 1+ Sodium Level 145 MMOL/L (136-145) Potassium Level 3.7 MMOL/L (3.5-5.1) Chloride Level 101 MMOL/L (98-107) Carbon Dioxide Level 37 MMOL/L (21-32) H Anion Gap 8 mmol/L (5-15) Blood Urea Nitrogen 61 mg/dL (7-18) H Creatinine 3.3 MG/DL (0.55-1.30) H Estimat Glomerular Filtration Rate mL/min (>60) Glucose Level 108 MG/DL (74-106) H Uric Acid 18.6 MG/DL (2.6-7.2) H Calcium Level 8.9 MG/DL (8.5-10.1) Phosphorus Level 4.3 MG/DL (2.5-4.9) Magnesium Level 2.0 MG/DL (1.8-2.4) Total Bilirubin 1.7 MG/DL (0.2-1.0) H Direct Bilirubin 0.9 MG/DL (0.0-0.3) H Gamma Glutamyl Transpeptidase 199 U/L (5-85) H Aspartate Amino Transf (AST/SGOT) 51 U/L (15-37) H Alanine Aminotransferase (ALT/SGPT) 72 U/L (12-78) Alkaline Phosphatase 139 U/L (46-116) H Total Protein 6.4 G/DL (6.4-8.2) Albumin 3.4 G/DL (3.4-5.0) Globulin 3.0 g/dL Albumin/Globulin Ratio 1.1 (1.0-2.7) MIMI OHARA 8, 2018 19:35
[2017-10-21 20:00] VITALS: BP 127/66
[2017-10-21] MEDS ORDERED: Heparin 5000 units/ml inj SUBQ SCH (21:00)
[2017-10-21] MEDS: HydrALAZINE 50mg tab ORAL SCH (21:19)
[2017-10-21] MEDS ORDERED: Tubing IV Secondary IV ONE (22:16)
[2017-10-21] MEDS ORDERED: NS 500ML ONE (22:16)
[2017-10-21] MEDS ORDERED: Miralax 17gm pkt ORAL PRN ×2 (23:30)
--- NOTE | 2017-10-21 23:40 | Internal Med Progress Note ---
Subjective Date of Service: Oct 21, 2017 Physician Name Madelaine Tobias Attending Physician Madelaine Tobias Current Medications Medications (Trade) Dose Ordered Sig/Denny Route PRN Reason Start Time Stop Time Status Last Admin Dose Admin Acetaminophen (Tylenol) 650 mg Q4H PRN ORAL Fever 10/21/17 15:30 11/17/17 23:29 Albuterol/ Ipratropium (Albuterol/ Ipratropium) 3 ml EVERY 4 HOURS PRN HHN Shortness of Breath 10/21/17 13:00 10/23/17 23:29 Allopurinol (Allopurinol) 300 mg DAILY ORAL 10/22/17 09:00 11/20/17 08:59 Dextrose (Dextrose 50%) STAT PRN IV Hypoglycemia 10/21/17 23:30 11/17/17 23:29 Dobutamine HCl 250 ml @ 11.103 mls/ hr Q24H IV 10/21/17 13:00 11/20/17 12:59 10/21/17 13:00 Furosemide (Lasix) 40 mg EVERY 8 HOURS IV 10/21/17 14:00 11/18/17 05:59 10/21/17 21:19 Heparin Sodium (Porcine) (Heparin 5000 units/ml) 5,000 units EVERY 12 HOURS SUBQ 10/21/17 21:00 11/18/17 08:59 Hydralazine HCl (Apresoline) 50 mg Q8HR ORAL 10/21/17 22:00 11/20/17 21:59 10/21/17 21:19 Isosorbide Dinitrate (Isordil) 10 mg Q6HR ORAL 10/21/17 18:00 11/18/17 12:14 10/21/17 17:47 Ondansetron HCl (Zofran) 4 mg Q6H PRN IVP Nausea & Vomiting 10/21/17 17:30 11/17/17 23:29 Polyethylene Glycol (Miralax) 17 gm DAILYPRN PRN ORAL Constipation 10/21/17 23:30 11/17/17 23:29 Prednisone (predniSONE) 40 mg DAILY ORAL 10/22/17 09:00 11/18/17 08:59 Tamsulosin HCl (Flomax) 0.4 mg BID ORAL 10/21/17 18:00 11/18/17 18:29 10/21/17 17:47 Temazepam (Restoril) 15 mg HSPRN PRN ORAL Insomnia 10/21/17 23:30 10/25/17 23:29 Allergies: Coded Allergies: No Known Allergies (Unverified , 01/09/14) Constitutional: Reports: weakness Respiratory: Reports: orthopnea, shortness of breath, SOB with excertion Objective Last Vital Signs Date Time Temp Pulse Resp B/P (MAP) Pulse Ox O2 Delivery O2 Flow Rate FiO2 10/21/17 21:19 127/66 10/21/17 20:00 97.0 82 20 97 Room Air 97.0 General Appearance: no apparent distress EENT: PERRL/EOMI Neck: non-tender, supple Cardiovascular: regular rhythm, systolic murmur Respiratory/Chest: rhonchi - left Abdomen: non tender, soft, no mass Edema: trace edema Neurologic: baker head II-XII grossly normal Skin: warm/dry Laboratory Tests Test 10/20/17 23:50 10/21/17 07:58 Troponin I 0.077 ng/mL (0.000-0.056) White Blood Count 10.6 K/UL (4.8-10.8) Red Blood Count 5.48 M/UL (4.70-6.10) Hemoglobin 16.3 G/DL (14.2-18.0) Hematocrit 51.0 % (42.0-52.0) Mean Corpuscular Volume 93 FL (80-99) Mean Corpuscular Hemoglobin 29.8 PG (27.0-31.0) Mean Corpuscular Hemoglobin Concent 32.0 G/DL (32.0-36.0) Red Cell Distribution Width 16.4 % (11.6-14.8) H Platelet Count 82 K/UL (150-450) L Mean Platelet Volume 10.0 FL (6.5-10.1) Neutrophils (%) (Auto) % (45.0-75.0) Lymphocytes (%) (Auto) % (20.0-45.0) Monocytes (%) (Auto) % (1.0-10.0) Eosinophils (%) (Auto) % (0.0-3.0) Basophils (%) (Auto) % (0.0-2.0) Differential Total Cells Counted 100 Neutrophils % (Manual) 90 % (45-75) H Lymphocytes % (Manual) 3 % (20-45) L Monocytes % (Manual) 6 % (1-10) Eosinophils % (Manual) 0 % (0-3) Basophils % (Manual) 0 % (0-2) Band Neutrophils 1 % (0-8) Platelet Estimate Decreased L Platelet Morphology Normal Anisocytosis 1+ Sodium Level 145 MMOL/L (136-145) Potassium Level 3.7 MMOL/L (3.5-5.1) Chloride Level 101 MMOL/L (98-107) Carbon Dioxide Level 37 MMOL/L (21-32) H Anion Gap 8 mmol/L (5-15) Blood Urea Nitrogen 61 mg/dL (7-18) H Creatinine 3.3 MG/DL (0.55-1.30) H Estimat Glomerular Filtration Rate mL/min (>60) Glucose Level 108 MG/DL (74-106) H Uric Acid 18.6 MG/DL (2.6-7.2) H Calcium Level 8.9 MG/DL (8.5-10.1) Phosphorus Level 4.3 MG/DL (2.5-4.9) Magnesium Level 2.0 MG/DL (1.8-2.4) Total Bilirubin 1.7 MG/DL (0.2-1.0) H Direct Bilirubin 0.9 MG/DL (0.0-0.3) H Gamma Glutamyl Transpeptidase 199 U/L (5-85) H Aspartate Amino Transf (AST/SGOT) 51 U/L (15-37) H Alanine Aminotransferase (ALT/SGPT) 72 U/L (12-78) Alkaline Phosphatase 139 U/L (46-116) H Total Protein 6.4 G/DL (6.4-8.2) Albumin 3.4 G/DL (3.4-5.0) Globulin 3.0 g/dL Albumin/Globulin Ratio 1.1 (1.0-2.7) Intake and Output 10/20/17 10/21/17 19:00 07:00 Intake Total 600 ml Output Total 850 ml 2250 ml Balance -250 ml -2250 ml Intake Oral 600 ml Output Urine Total 850 ml 2250 ml # Voids 5 Assessment/Plan Assessment/Plan 1. Acute on chronic left-sided heart failure. 2. History of cardiomyopathy. 3. Lower extremity edema. 4. Nonischemic cardiomyopathy, status post cardiac catheterization in 2016. 5. Polycythemia. 6. Hypertension. 7. Thrombocytopenia. 8. Hyperlipidemia. 9. Chronic kidney disease, stage 3-4. Plan: dobutamine infusion lasix IV diuresis monitor urine outpt TTE noted EF 15% pulm HHN may end upon hD soon electrolyte replete hem consult noted for polycythemia DVt/GI prophylasix all questions answered. 40 min spent today MADELAINE TOBIAS Oct 21, 2017 23:40
[2017-10-22] MEDS: HydrALAZINE 50mg tab ORAL SCH ×3 (06:25→23:15)
[2017-10-22 08:00] VITALS: BP 120/66
[2017-10-22] MEDS: Heparin 5000 units/ml inj SUBQ SCH ×2 (09:00→21:00)
[2017-10-22] MEDS: Tamsulosin 0.4mg cap ORAL SCH ×2 (09:26→18:39)
--- NOTE | 2017-10-22 09:41 | General Progress Note ---
Assessment/Plan Assessment/Plan 1. Erythrocytosis, which is severe, this is new for the patient. --> Iron 27, TIBC 145, Ferritin 186, B12 1227 --> JAK2 Pending. In addition, obtain peripheral smear. This could be secondary to multiple causes such as dehydration. --> At this time, again obtain JAK2 level, iron panel, and erythropoietin level. 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 --> HEP and HIV panel negative. 2. Thrombocytopenia, potentially secondary to infectious process versus medications versus polycythemia vera or other disorder of the bone marrow. --> HIV and Hep panel negative. --> Ultrasound of the abdomen completed. --> Results: The liver, demonstrated part of the pancreas, gallbladder, aorta and IVC, both kidneys, spleen appear unremarkable. There is a 4 cm right renal cyst noted centrally. There is no biliary ductal dilatation identified. --> Doppler evaluation of the main portal vein shows patency. There is no ascites. No hydronephrosis seen. CBD is 5.8 mm. 3. Leukocytosis, potentially secondary to reactive process, mild. --> Monitor for improvement. 4. Elevated creatinine, potentially secondary to chronic kidney disease. Continue to closely monitor. 5. Renal insufficiency. 6. History of deep vein thrombosis. 7. Polycythemia, again potentially secondary to primary versus secondary. 8. Hypertension. Continue to closely monitor. Subjective Date patient seen: Oct 21, 2017 Allergies: Coded Allergies: No Known Allergies (Unverified , 01/09/14) Subjective Hgb downtrended. No fever or chills. NAD. Objective Last 24 Hour Vital Signs Date Time Temp Pulse Resp B/P (MAP) Pulse Ox O2 Delivery O2 Flow Rate FiO2 10/22/17 08:00 98.1 20 120/66 97 Room Air 98.1 10/22/17 06:25 127/66 10/22/17 06:25 127/66 10/22/17 04:00 70 10/22/17 00:00 87 10/21/17 23:45 127/66 10/21/17 21:19 127/66 10/21/17 20:00 97.0 82 20 127/66 97 Room Air 97.0 10/21/17 20:00 72 10/21/17 17:47 144/68 10/21/17 16:00 88 10/21/17 13:47 144/68 10/21/17 13:00 144/68 10/21/17 12:00 68 10/21/17 11:37 124/73 10/21/17 11:35 124/73 Intake and Output 10/21/17 10/22/17 19:00 07:00 Intake Total 721.103 ml 88.824 ml Output Total 1800 ml 1500 ml Balance -1078.897 ml -1411.176 ml Intake Oral 710 ml IV Total 11.103 ml 88.824 ml Output Urine Total 1800 ml 1500 ml # Voids 1 4 Height (Feet): 5 Height (Inches): 10.00 Weight (Pounds): 153 Mahendra Marinelli Oct 22, 2017 09:41
--- NOTE | 2017-10-22 10:30 | Diagnostic Imaging Report ---
APPROVED REPORT CPT Code: 46125 Present Symptoms Lower Extremity Edema: Bilateral BILATERAL: Imaging reveals a patent deep venous system bilaterally. There is no evidence of thrombus within the femoral, popliteal or tibial segments. The greater saphenous veins are also within normal limits. Doppler indicates pulsatile flow within these segments.
[2017-10-22 10:41] LABS: HEMATOCRIT 53.8 % (42.0-52.0); MEAN CORPUSCULAR VOLUME 92 FL (80-99); PLATELET COUNT 91 K/UL (150-450); RED BLOOD COUNT 5.82 M/UL (4.70-6.10); RED CELL DISTRIBUTION WIDTH 16.3 % (11.6-14.8); WHITE BLOOD COUNT 11.8 K/UL (4.8-10.8)
--- NOTE | 2017-10-22 11:02 | Nephrology Progress Note ---
Assessment/Plan Problem List: (1) CKD (chronic kidney disease) (2) Cardiomyopathy (3) Elevated troponin Assessment FIONA on CKD to cardiorenal Cr stable 3.8 to 3.3 chronic systolic heart failure Right heart failuer Edema due to above and possible venous insuf Non-ischemic cardiomyopathy no cad by cath 2016 History of DVT none now polycythemia unclear etiology should eval to see if primary or secondary pulmonary HTn Thrombocytopenia HTN Plan Plan; lab pending Optimize cardiac status monitor renal parameters 24 H urine for CrCl Avoid nephrotoxics may require HD and UF echo: Severe global left ventricular hypokinesis with septal thinning. Left ventricular ejection fraction estimated to be 10-15 %. Subjective ROS Limited/Unobtainable: No Constitutional: Reports: malaise, weakness Objective Objective Last 24 Hour Vital Signs Date Time Temp Pulse Resp B/P (MAP) Pulse Ox O2 Delivery O2 Flow Rate FiO2 10/22/17 08:00 98.1 20 120/66 97 Room Air 98.1 10/22/17 08:00 97 10/22/17 06:25 127/66 10/22/17 06:25 127/66 10/22/17 04:00 70 10/22/17 00:00 87 10/21/17 23:45 127/66 10/21/17 21:19 127/66 10/21/17 20:00 97.0 82 20 127/66 97 Room Air 97.0 10/21/17 20:00 72 10/21/17 17:47 144/68 10/21/17 16:00 88 10/21/17 13:47 144/68 10/21/17 13:00 144/68 10/21/17 12:00 68 10/21/17 11:37 124/73 10/21/17 11:35 124/73 Intake and Output 10/21/17 10/22/17 19:00 07:00 Intake Total 721.103 ml 88.824 ml Output Total 1800 ml 1500 ml Balance -1078.897 ml -1411.176 ml Intake Oral 710 ml IV Total 11.103 ml 88.824 ml Output Urine Total 1800 ml 1500 ml # Voids 1 4 Laboratory Tests 10/22/17 10:10: White Blood Count 11.8H, Red Blood Count 5.82, Hemoglobin 17.0, Hematocrit 53.8H , Mean Corpuscular Volume 92, Mean Corpuscular Hemoglobin 29.2, Mean Corpuscular Hemoglobin Concent 31.6L, Red Cell Distribution Width 16.3H, Platelet Count 91L, Mean Platelet Volume 12.7H, Neutrophils (%) (Auto) , Lymphocytes (%) (Auto) , Monocytes (%) (Auto) , Eosinophils (%) (Auto) , Basophils (%) (Auto) , Neutrophils % (Manual) [Pending], Lymphocytes % (Manual) [Pending], Platelet Estimate [Pending], Platelet Morphology [Pending], Sodium Level [Pending], Potassium Level [Pending], Chloride Level [Pending], Carbon Dioxide Level [Pending], Blood Urea Nitrogen [Pending], Creatinine [Pending], Estimat Glomerular Filtration Rate [Pending], Glucose Level [Pending], Calcium Level [Pending], Total Bilirubin [Pending], Aspartate Amino Transf (AST/SGOT) [ Pending], Alanine Aminotransferase (ALT/SGPT) [Pending], Alkaline Phosphatase [ Pending], Pro-B-Type Natriuretic Peptide [Pending], Total Protein [Pending], Albumin [Pending], Globulin [Pending] Height (Feet): 5 Height (Inches): 10.00 Weight (Pounds): 153 General Appearance: no apparent distress Cardiovascular: tachycardia Respiratory/Chest: decreased breath sounds Abdomen: distended BHARATHI LOVE Oct 22, 2017 11:02
--- NOTE | 2017-10-22 11:05 | Diagnostic Imaging Report ---
Indication: Dyspnea Technique: One view of the chest Comparison: 10/18/2017 Findings: There inspiration currently. The heart is enlarged. The lungs and pleural spaces are clear. Previously demonstrated left basilar atelectasis has largely cleared Impression: Cardiomegaly. No acute process
[2017-10-22 11:17] LABS: ALANINE AMINOTRANSFERASE 68 U/L (12-78); ALBUMIN 3.5 G/DL (3.4-5.0); ALBUMIN/GLOBULIN RATIO 1.1 (1.0-2.7); ALKALINE PHOSPHATASE 128 U/L (46-116); ANION GAP 9 mmol/L (5-15); ASPARTATE AMINO TRANSFERASE 44 U/L (15-37); BILIRUBIN,TOTAL 1.8 MG/DL (0.2-1.0); BLOOD UREA NITROGEN 50 mg/dL (7-18); CARBON DIOXIDE 37 MMOL/L (21-32); CHLORIDE 98 MMOL/L (98-107); CREATININE 2.8 MG/DL (0.55-1.30); POTASSIUM 3.4 MMOL/L (3.5-5.1); SODIUM 144 MMOL/L (136-145)
[2017-10-22 11:39] LABS: BILIRUBIN,DIRECT 0.6 MG/DL (0.0-0.3)
[2017-10-22] MEDS: DOBUTamine 250mg/250ml Premix 250 ML IV SCH (13:16)
--- NOTE | 2017-10-22 13:26 | Pulmonology Progress Note ---
Assessment/Plan Problems: (1) Respiratory distress (2) Peripheral edema (3) Cardiomyopathy (4) CHF (congestive heart failure) (5) HTN (hypertension) (6) CKD (chronic kidney disease) (7) Malnutrition Assessment/Plan echo noted, EF is 10% on lasix 40Q8 IV 24 urine collection in process renal function improving dc home when ok with cardiology Subjective ROS Limited/Unobtainable: No Constitutional: Reports: no symptoms HEENT: Repors: no symptoms Respiratory: Reports: no symptoms Allergies: Coded Allergies: No Known Allergies (Unverified , 01/09/14) Objective Last 24 Hour Vital Signs Date Time Temp Pulse Resp B/P (MAP) Pulse Ox O2 Delivery O2 Flow Rate FiO2 10/22/17 13:16 120/66 10/22/17 13:16 120/66 10/22/17 08:00 98.1 20 120/66 97 Room Air 98.1 10/22/17 08:00 97 10/22/17 06:25 127/66 10/22/17 06:25 127/66 10/22/17 04:00 70 10/22/17 00:00 87 10/21/17 23:45 127/66 10/21/17 21:19 127/66 10/21/17 20:00 97.0 82 20 127/66 97 Room Air 97.0 10/21/17 20:00 72 10/21/17 17:47 144/68 10/21/17 16:00 88 10/21/17 13:47 144/68 Intake and Output 10/21/17 10/22/17 19:00 07:00 Intake Total 721.103 ml 88.824 ml Output Total 1800 ml 1500 ml Balance -1078.897 ml -1411.176 ml Intake Oral 710 ml IV Total 11.103 ml 88.824 ml Output Urine Total 1800 ml 1500 ml # Voids 1 4 Objective General Appearance: WD/WN Lines, tubes and drains: peripheral HEENT: normocephalic, atraumatic Neck: non-tender, normal alignment Respiratory/Chest: chest wall non-tender, lungs clear Breasts: no masses Cardiovascular/Chest: normal peripheral pulses, normal rate Abdomen: normal bowel sounds, non tender Genitourinary/Rectal: normal genital exam, heme negative stool Extremities: normal range of motion, non-tender, + edema Skin Exam: normal pigmentation Laboratory Tests 10/22/17 10:10: White Blood Count 11.8H, Red Blood Count 5.82, Hemoglobin 17.0, Hematocrit 53.8H , Mean Corpuscular Volume 92, Mean Corpuscular Hemoglobin 29.2, Mean Corpuscular Hemoglobin Concent 31.6L, Red Cell Distribution Width 16.3H, Platelet Count 91L, Mean Platelet Volume 12.7H, Neutrophils (%) (Auto) , Lymphocytes (%) (Auto) , Monocytes (%) (Auto) , Eosinophils (%) (Auto) , Basophils (%) (Auto) , Differential Total Cells Counted 100, Neutrophils % ( Manual) 88H, Lymphocytes % (Manual) 7L, Monocytes % (Manual) 5, Eosinophils % ( Manual) 0, Basophils % (Manual) 0, Band Neutrophils 0, Platelet Estimate DecreasedL, Platelet Morphology Normal, Hypochromasia 1+, Anisocytosis 1+, Sodium Level 144, Potassium Level 3.4L, Chloride Level 98, Carbon Dioxide Level 37H, Anion Gap 9, Blood Urea Nitrogen 50H, Creatinine 2.8H, Estimat Glomerular Filtration Rate , Glucose Level 128H, Calcium Level 9.0, Total Bilirubin 1.8H, Direct Bilirubin 0.6H, Aspartate Amino Transf (AST/SGOT) 44H, Alanine Aminotransferase (ALT/SGPT) 68, Alkaline Phosphatase 128H, Pro-B-Type Natriuretic Peptide 8477H, Total Protein 6.8, Albumin 3.5, Globulin 3.3, Albumin /Globulin Ratio 1.1 Current Medications Medications (Trade) Dose Ordered Sig/Denny Route PRN Reason Start Time Stop Time Status Last Admin Dose Admin Acetaminophen (Tylenol) 650 mg Q4H PRN ORAL Fever 10/21/17 15:30 11/17/17 23:29 Albuterol/ Ipratropium (Albuterol/ Ipratropium) 3 ml EVERY 4 HOURS PRN HHN Shortness of Breath 10/21/17 13:00 10/23/17 23:29 Allopurinol (Allopurinol) 300 mg DAILY ORAL 10/22/17 09:00 11/20/17 08:59 10/22/17 09:26 Dextrose (Dextrose 50%) STAT PRN IV Hypoglycemia 10/21/17 23:30 11/17/17 23:29 Dobutamine HCl 250 ml @ 11.103 mls/ hr Q24H IV 10/21/17 13:00 11/20/17 12:59 10/22/17 13:16 Furosemide (Lasix) 40 mg EVERY 8 HOURS IV 10/21/17 14:00 11/18/17 05:59 10/22/17 06:25 Heparin Sodium (Porcine) (Heparin 5000 units/ml) 5,000 units EVERY 12 HOURS SUBQ 10/21/17 21:00 11/18/17 08:59 Hydralazine HCl (Apresoline) 50 mg Q8HR ORAL 10/21/17 22:00 11/20/17 21:59 10/22/17 06:25 Isosorbide Dinitrate (Isordil) 10 mg Q6HR ORAL 10/21/17 18:00 11/18/17 12:14 10/22/17 13:16 Ondansetron HCl (Zofran) 4 mg Q6H PRN IVP Nausea & Vomiting 10/21/17 17:30 11/17/17 23:29 Polyethylene Glycol (Miralax) 17 gm DAILYPRN PRN ORAL Constipation 10/21/17 23:30 11/17/17 23:29 Prednisone (predniSONE) 40 mg DAILY ORAL 10/22/17 09:00 11/18/17 08:59 10/22/17 09:26 Tamsulosin HCl (Flomax) 0.4 mg BID ORAL 10/21/17 18:00 11/18/17 18:29 10/22/17 09:26 Temazepam (Restoril) 15 mg HSPRN PRN ORAL Insomnia 10/21/17 23:30 10/25/17 23:29 AVRIL BANKS Oct 22, 2017 13:26
--- NOTE | 2017-10-22 18:25 | Cardiology Progress Note ---
Assessment/Plan Assessment/Plan 1. Peripheral edema, due to right heart failure. 2. History of nonischemic cardiomyopathy ejection fraction of 15%. 3. History of right ventricular failure with pulmonary hypertension 4. Medication noncompliance. 5. Acute renal insufficiency with creatinine increased from baseline of 1.3. 6. Azotemia. 7. Chronic congestive heart failure class 3. 8. Thrombocytopenia, appears to be chronic in nature. 9. Polycythemia. 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 please make sure get perscrio[pt fo diurtic lasix 40 mg bid adn hydralazine and isordil d/w pt na and fludi restriction Subjective Cardiovascular: Denies: chest pain, irregular heart rate, lightheadedness, palpitations Respiratory: Denies: shortness of breath Gastrointestinal/Abdominal: Denies: abdomen distended Genitourinary: Denies: burning Subjective was able to walk to br without any so nor dizziness Objective Last 24 Hour Vital Signs Date Time Temp Pulse Resp B/P (MAP) Pulse Ox O2 Delivery O2 Flow Rate FiO2 10/22/17 16:00 92 10/22/17 13:26 122/71 10/22/17 13:16 120/66 10/22/17 13:16 120/66 10/22/17 12:00 95 10/22/17 08:00 98.1 20 120/66 97 Room Air 98.1 10/22/17 08:00 97 10/22/17 06:25 127/66 10/22/17 06:25 127/66 10/22/17 04:00 70 10/22/17 00:00 87 10/21/17 23:45 127/66 10/21/17 21:19 127/66 10/21/17 20:00 97.0 82 20 127/66 97 Room Air 97.0 10/21/17 20:00 72 General Appearance: no apparent distress, alert Neck: no JVD Cardiovascular: normal rate, regular rhythm, regularly irregular Respiratory/Chest: lungs clear, normal breath sounds Abdomen: normal bowel sounds, non tender, soft Extremities: moderate edema Intake and Output 10/21/17 10/22/17 19:00 07:00 Intake Total 721.103 ml 88.824 ml Output Total 1800 ml 1500 ml Balance -1078.897 ml -1411.176 ml Intake Oral 710 ml IV Total 11.103 ml 88.824 ml Output Urine Total 1800 ml 1500 ml # Voids 1 4 Laboratory Tests Test 10/22/17 10:10 White Blood Count 11.8 K/UL (4.8-10.8) H Red Blood Count 5.82 M/UL (4.70-6.10) Hemoglobin 17.0 G/DL (14.2-18.0) Hematocrit 53.8 % (42.0-52.0) H Mean Corpuscular Volume 92 FL (80-99) Mean Corpuscular Hemoglobin 29.2 PG (27.0-31.0) Mean Corpuscular Hemoglobin Concent 31.6 G/DL (32.0-36.0) L Red Cell Distribution Width 16.3 % (11.6-14.8) H Platelet Count 91 K/UL (150-450) L Mean Platelet Volume 12.7 FL (6.5-10.1) H Neutrophils (%) (Auto) % (45.0-75.0) Lymphocytes (%) (Auto) % (20.0-45.0) Monocytes (%) (Auto) % (1.0-10.0) Eosinophils (%) (Auto) % (0.0-3.0) Basophils (%) (Auto) % (0.0-2.0) Differential Total Cells Counted 100 Neutrophils % (Manual) 88 % (45-75) H Lymphocytes % (Manual) 7 % (20-45) L Monocytes % (Manual) 5 % (1-10) Eosinophils % (Manual) 0 % (0-3) Basophils % (Manual) 0 % (0-2) Band Neutrophils 0 % (0-8) Platelet Estimate Decreased L Platelet Morphology Normal Hypochromasia 1+ Anisocytosis 1+ Sodium Level 144 MMOL/L (136-145) Potassium Level 3.4 MMOL/L (3.5-5.1) L Chloride Level 98 MMOL/L (98-107) Carbon Dioxide Level 37 MMOL/L (21-32) H Anion Gap 9 mmol/L (5-15) Blood Urea Nitrogen 50 mg/dL (7-18) H Creatinine 2.8 MG/DL (0.55-1.30) H Estimat Glomerular Filtration Rate mL/min (>60) Glucose Level 128 MG/DL (74-106) H Calcium Level 9.0 MG/DL (8.5-10.1) Total Bilirubin 1.8 MG/DL (0.2-1.0) H Direct Bilirubin 0.6 MG/DL (0.0-0.3) H Aspartate Amino Transf (AST/SGOT) 44 U/L (15-37) H Alanine Aminotransferase (ALT/SGPT) 68 U/L (12-78) Alkaline Phosphatase 128 U/L (46-116) H Pro-B-Type Natriuretic Peptide 8477 pg/mL (0-125) H Total Protein 6.8 G/DL (6.4-8.2) Albumin 3.5 G/DL (3.4-5.0) Globulin 3.3 g/dL Albumin/Globulin Ratio 1.1 (1.0-2.7) MIMI OHARA Oct 22, 2017 18:25
[2017-10-22 20:00] VITALS: BP 117/67
[2017-10-23 04:00] VITALS: BP 114/67
[2017-10-23] MEDS: HydrALAZINE 50mg tab ORAL SCH ×3 (05:23→21:37)
--- NOTE | 2017-10-23 07:16 | Nephrology Progress Note ---
Assessment/Plan Problem List: (1) CKD (chronic kidney disease) Assessment: acute on chronic (2) Cardiomyopathy (3) Elevated troponin Assessment FIONA on CKD to cardiorenal Cr stable 3.8 to 2.8 chronic systolic heart failure Right heart failuer Edema due to above and possible venous insuf Non-ischemic cardiomyopathy no cad by cath 2016 History of DVT none now polycythemia unclear etiology should eval to see if primary or secondary pulmonary HTn Thrombocytopenia HTN Plan Plan; Optimize cardiac status monitor renal parameters 24 H urine for CrCl Avoid nephrotoxics may require HD and UF echo: Severe global left ventricular hypokinesis with septal thinning. Left ventricular ejection fraction estimated to be 10-15 %. Subjective ROS Limited/Unobtainable: No Constitutional: Reports: malaise Objective Objective Last 24 Hour Vital Signs Date Time Temp Pulse Resp B/P (MAP) Pulse Ox O2 Delivery O2 Flow Rate FiO2 10/23/17 05:23 114/67 10/23/17 05:23 114/67 10/23/17 04:00 85 10/23/17 04:00 97.0 85 20 114/67 95 97.0 10/23/17 00:00 78 10/22/17 23:16 117/67 10/22/17 23:15 117/67 10/22/17 20:00 97.9 96 20 117/67 95 97.9 10/22/17 20:00 86 10/22/17 18:39 122/71 10/22/17 16:00 92 10/22/17 13:26 122/71 10/22/17 13:16 120/66 10/22/17 13:16 120/66 10/22/17 12:00 95 10/22/17 08:00 98.1 20 120/66 97 Room Air 98.1 10/22/17 08:00 97 Intake and Output 10/22/17 10/23/17 19:00 07:00 Intake Total 896.103 ml 351.030 ml Output Total 1600 ml 500 ml Balance -703.897 ml -148.970 ml Intake Oral 885 ml 240 ml IV Total 11.103 ml 111.030 ml Output Urine Total 1600 ml 500 ml # Voids 5 # Bowel Movements 1 Laboratory Tests 10/22/17 10:10: White Blood Count 11.8H, Red Blood Count 5.82, Hemoglobin 17.0, Hematocrit 53.8H , Mean Corpuscular Volume 92, Mean Corpuscular Hemoglobin 29.2, Mean Corpuscular Hemoglobin Concent 31.6L, Red Cell Distribution Width 16.3H, Platelet Count 91L, Mean Platelet Volume 12.7H, Neutrophils (%) (Auto) , Lymphocytes (%) (Auto) , Monocytes (%) (Auto) , Eosinophils (%) (Auto) , Basophils (%) (Auto) , Differential Total Cells Counted 100, Neutrophils % ( Manual) 88H, Lymphocytes % (Manual) 7L, Monocytes % (Manual) 5, Eosinophils % ( Manual) 0, Basophils % (Manual) 0, Band Neutrophils 0, Platelet Estimate DecreasedL, Platelet Morphology Normal, Hypochromasia 1+, Anisocytosis 1+, Sodium Level 144, Potassium Level 3.4L, Chloride Level 98, Carbon Dioxide Level 37H, Anion Gap 9, Blood Urea Nitrogen 50H, Creatinine 2.8H, Estimat Glomerular Filtration Rate , Glucose Level 128H, Calcium Level 9.0, Total Bilirubin 1.8H, Direct Bilirubin 0.6H, Aspartate Amino Transf (AST/SGOT) 44H, Alanine Aminotransferase (ALT/SGPT) 68, Alkaline Phosphatase 128H, Pro-B-Type Natriuretic Peptide 8477H, Total Protein 6.8, Albumin 3.5, Globulin 3.3, Albumin /Globulin Ratio 1.1 Height (Feet): 5 Height (Inches): 10.00 Weight (Pounds): 156 General Appearance: no apparent distress Objective no change BHARATHI LOVE Oct 23, 2017 07:16
[2017-10-23 08:24] VITALS: BP 114/56
[2017-10-23] MEDS: Tamsulosin 0.4mg cap ORAL SCH ×2 (08:54→17:33)
[2017-10-23] MEDS: Heparin 5000 units/ml inj SUBQ SCH ×2 (08:55→21:00)
--- NOTE | 2017-10-23 09:02 | Pulmonology Progress Note ---
Assessment/Plan Problems: (1) Respiratory distress (2) Peripheral edema (3) Cardiomyopathy (4) CHF (congestive heart failure) (5) HTN (hypertension) (6) CKD (chronic kidney disease) (7) Malnutrition Assessment/Plan echo noted, EF is 10% on lasix 40Q8 IV 24 urine collection in process renal function improving still on Dobutamin drip Subjective ROS Limited/Unobtainable: No Allergies: Coded Allergies: No Known Allergies (Unverified , 01/09/14) Objective Last 24 Hour Vital Signs Date Time Temp Pulse Resp B/P (MAP) Pulse Ox O2 Delivery O2 Flow Rate FiO2 10/23/17 08:24 97.5 98 20 114/56 98 Room Air 97.5 10/23/17 05:23 114/67 10/23/17 05:23 114/67 10/23/17 04:00 85 10/23/17 04:00 97.0 85 20 114/67 95 97.0 10/23/17 00:00 78 10/22/17 23:16 117/67 10/22/17 23:15 117/67 10/22/17 20:00 97.9 96 20 117/67 95 97.9 10/22/17 20:00 86 10/22/17 18:39 122/71 10/22/17 16:00 92 10/22/17 13:26 122/71 10/22/17 13:16 120/66 10/22/17 13:16 120/66 10/22/17 12:00 95 Intake and Output 10/22/17 10/23/17 19:00 07:00 Intake Total 896.103 ml 373.236 ml Output Total 1600 ml 500 ml Balance -703.897 ml -126.764 ml Intake Oral 885 ml 240 ml IV Total 11.103 ml 133.236 ml Output Urine Total 1600 ml 500 ml # Voids 5 # Bowel Movements 1 Objective General Appearance: WD/WN Lines, tubes and drains: peripheral HEENT: normocephalic, atraumatic Neck: non-tender, normal alignment Respiratory/Chest: chest wall non-tender, lungs clear Breasts: no masses Cardiovascular/Chest: normal peripheral pulses, normal rate Abdomen: normal bowel sounds, non tender Genitourinary/Rectal: normal genital exam, heme negative stool Extremities: normal range of motion, non-tender, + edema Skin Exam: normal pigmentation Laboratory Tests 10/22/17 10:10: White Blood Count 11.8H, Red Blood Count 5.82, Hemoglobin 17.0, Hematocrit 53.8H , Mean Corpuscular Volume 92, Mean Corpuscular Hemoglobin 29.2, Mean Corpuscular Hemoglobin Concent 31.6L, Red Cell Distribution Width 16.3H, Platelet Count 91L, Mean Platelet Volume 12.7H, Neutrophils (%) (Auto) , Lymphocytes (%) (Auto) , Monocytes (%) (Auto) , Eosinophils (%) (Auto) , Basophils (%) (Auto) , Differential Total Cells Counted 100, Neutrophils % ( Manual) 88H, Lymphocytes % (Manual) 7L, Monocytes % (Manual) 5, Eosinophils % ( Manual) 0, Basophils % (Manual) 0, Band Neutrophils 0, Platelet Estimate DecreasedL, Platelet Morphology Normal, Hypochromasia 1+, Anisocytosis 1+, Sodium Level 144, Potassium Level 3.4L, Chloride Level 98, Carbon Dioxide Level 37H, Anion Gap 9, Blood Urea Nitrogen 50H, Creatinine 2.8H, Estimat Glomerular Filtration Rate , Glucose Level 128H, Calcium Level 9.0, Total Bilirubin 1.8H, Direct Bilirubin 0.6H, Aspartate Amino Transf (AST/SGOT) 44H, Alanine Aminotransferase (ALT/SGPT) 68, Alkaline Phosphatase 128H, Pro-B-Type Natriuretic Peptide 8477H, Total Protein 6.8, Albumin 3.5, Globulin 3.3, Albumin /Globulin Ratio 1.1 Current Medications Medications (Trade) Dose Ordered Sig/Denny Route PRN Reason Start Time Stop Time Status Last Admin Dose Admin Acetaminophen (Tylenol) 650 mg Q4H PRN ORAL Fever 10/21/17 15:30 11/17/17 23:29 Albuterol/ Ipratropium (Albuterol/ Ipratropium) 3 ml EVERY 4 HOURS PRN HHN Shortness of Breath 10/21/17 13:00 10/23/17 23:29 Allopurinol (Allopurinol) 300 mg DAILY ORAL 10/22/17 09:00 11/20/17 08:59 10/23/17 08:53 Dextrose (Dextrose 50%) STAT PRN IV Hypoglycemia 10/21/17 23:30 11/17/17 23:29 Dobutamine HCl 250 ml @ 11.103 mls/ hr Q24H IV 10/21/17 13:00 11/20/17 12:59 10/22/17 13:16 Furosemide (Lasix) 40 mg EVERY 8 HOURS IV 10/21/17 14:00 11/18/17 05:59 10/23/17 05:23 Heparin Sodium (Porcine) (Heparin 5000 units/ml) 5,000 units EVERY 12 HOURS SUBQ 10/21/17 21:00 11/18/17 08:59 Hydralazine HCl (Apresoline) 50 mg Q8HR ORAL 10/21/17 22:00 11/20/17 21:59 10/23/17 05:23 Isosorbide Dinitrate (Isordil) 10 mg Q6HR ORAL 10/21/17 18:00 11/18/17 12:14 10/23/17 05:23 Ondansetron HCl (Zofran) 4 mg Q6H PRN IVP Nausea & Vomiting 10/21/17 17:30 11/17/17 23:29 Polyethylene Glycol (Miralax) 17 gm DAILYPRN PRN ORAL Constipation 10/21/17 23:30 11/17/17 23:29 Prednisone (predniSONE) 40 mg DAILY ORAL 10/22/17 09:00 11/18/17 08:59 10/23/17 08:55 Tamsulosin HCl (Flomax) 0.4 mg BID ORAL 10/21/17 18:00 11/18/17 18:29 10/23/17 08:54 Temazepam (Restoril) 15 mg HSPRN PRN ORAL Insomnia 10/21/17 23:30 10/25/17 23:29 AVRIL BANKS Oct 23, 2017 09:02
--- NOTE | 2017-10-23 10:51 | General Progress Note ---
Assessment/Plan Assessment/Plan 1. Erythrocytosis, which is severe, this is new for the patient. --> Hemoglobin levels have been downtrending and improving. --> Iron 27, TIBC 145, Ferritin 186, B12 1227 --> JAK2 Pending. In addition, obtain peripheral smear. This could be secondary to multiple causes such as dehydration. 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 --> HEP and HIV panel negative. 2. Thrombocytopenia, potentially secondary to infectious process versus medications versus polycythemia vera or other disorder of the bone marrow. --> HIV and Hep panel negative. --> Ultrasound of the abdomen completed. --> Results: The liver, demonstrated part of the pancreas, gallbladder, aorta and IVC, both kidneys, spleen appear unremarkable. There is a 4 cm right renal cyst noted centrally. There is no biliary ductal dilatation identified. --> Doppler evaluation of the main portal vein shows patency. There is no ascites. No hydronephrosis seen. CBD is 5.8 mm. 3. Leukocytosis, potentially secondary to reactive process, mild. --> Monitor for improvement. 4. Elevated creatinine, potentially secondary to chronic kidney disease. Continue to closely monitor. 5. Renal insufficiency. 6. History of deep vein thrombosis. 7. Polycythemia, again potentially secondary to primary versus secondary. 8. Hypertension. Continue to closely monitor. Subjective Date patient seen: Oct 22, 2017 Constitutional: Denies: no symptoms, chills, diaphoresis, fever, malaise, weakness, other HEENT: Denies: no symptoms, eye pain, blurred vision, tearing, double vision, ear pain, ear discharge, nose pain, nose congestion, throat pain, throat swelling, mouth pain, mouth swelling, other Cardiovascular: Denies: no symptoms, chest pain, edema, irregular heart rate, lightheadedness, palpitations, syncope, other Respiratory: Denies: no symptoms, cough, orthopnea, shortness of breath, SOB with excertion, SOB at rest, sputum, stridor, wheezing, other Gastrointestinal/Abdominal: Denies: no symptoms, abdomen distended, abdominal pain, black stools, tarry stools, blood in stool, constipated, diarrhea, difficulty swallowing, nausea, poor appetite, poor fluid intake, rectal bleeding , vomiting, other Genitourinary: Denies: no symptoms, burning, discharge, frequency, flank pain, hematuria, incontinence, pain, urgency, other Neurologic/Psychiatric: Denies: no symptoms, anxiety, depressed, emotional problems, headache, numbness, paresthesia, pre-existing deficit, seizure, tingling, tremors, weakness, other Hematologic/Lymphatic: Reports: anemia Allergies: Coded Allergies: No Known Allergies (Unverified , 01/09/14) Subjective Hgb improved. Resting in bed. No acute events. Objective Last 24 Hour Vital Signs Date Time Temp Pulse Resp B/P (MAP) Pulse Ox O2 Delivery O2 Flow Rate FiO2 10/23/17 08:24 97.5 98 20 114/56 98 Room Air 97.5 10/23/17 08:00 85 10/23/17 05:23 114/67 10/23/17 05:23 114/67 10/23/17 04:00 85 10/23/17 04:00 97.0 85 20 114/67 95 97.0 10/23/17 00:00 78 10/22/17 23:16 117/67 10/22/17 23:15 117/67 10/22/17 20:00 97.9 96 20 117/67 95 97.9 10/22/17 20:00 86 10/22/17 18:39 122/71 10/22/17 16:00 92 10/22/17 13:26 122/71 10/22/17 13:16 120/66 10/22/17 13:16 120/66 10/22/17 12:00 95 Intake and Output 10/22/17 10/23/17 19:00 07:00 Intake Total 896.103 ml 373.236 ml Output Total 1600 ml 500 ml Balance -703.897 ml -126.764 ml Intake Oral 885 ml 240 ml IV Total 11.103 ml 133.236 ml Output Urine Total 1600 ml 500 ml # Voids 5 # Bowel Movements 1 Height (Feet): 5 Height (Inches): 10.00 Weight (Pounds): 156 Mahendra Marinelli Oct 23, 2017 10:51
[2017-10-23 12:33] VITALS: BP 152/94
[2017-10-23] MEDS: DOBUTamine 250mg/250ml Premix 250 ML IV SCH (13:15)
--- NOTE | 2017-10-23 14:29 | Cardiology Progress Note ---
Assessment/Plan Problem List: (1) Elevated troponin (2) Cardiomyopathy (3) Peripheral edema (4) Dyspnea (5) CHF (congestive heart failure) (6) HTN (hypertension) (7) CKD (chronic kidney disease) Status: stable, unchanged Status Narrative Dilated cardiomyopathy, with severe RV/LV systolic dysfunction. Admitted w/ decompensated CHF Assessment/Plan Continue optimization of medical therapy- Remain on low dose dobutamine today Contine iv lasix, and isordil/hydralazine for afterload reduction ( MONO/ARB held in view of renal failure, Cr 2.5-3) No b blockers at this time, as pt wheezing and hx of copd Followup labs, i/os, wts Subjective ROS Limited/Unobtainable: No Subjective Cardiology for Dr. Bustamante Pt comfortable at rest. Events noted. Objective Last 24 Hour Vital Signs Date Time Temp Pulse Resp B/P (MAP) Pulse Ox O2 Delivery O2 Flow Rate FiO2 10/23/17 13:15 152/94 10/23/17 13:02 152/94 10/23/17 13:01 152/94 10/23/17 12:33 96.8 84 20 152/94 96 Room Air 96.8 10/23/17 12:00 85 10/23/17 08:24 97.5 98 20 114/56 98 Room Air 97.5 10/23/17 08:00 85 10/23/17 05:23 114/67 10/23/17 05:23 114/67 10/23/17 04:00 85 10/23/17 04:00 97.0 85 20 114/67 95 97.0 10/23/17 00:00 78 10/22/17 23:16 117/67 10/22/17 23:15 117/67 10/22/17 20:00 97.9 96 20 117/67 95 97.9 10/22/17 20:00 86 10/22/17 18:39 122/71 10/22/17 16:00 92 General Appearance: no apparent distress, alert, thin EENT: PERRL/EOMI Neck: supple, no JVD Rhythm: NSR Cardiovascular: normal rate, regular rhythm, systolic murmur Respiratory/Chest: expiratory wheezing - R> L expir wheezes , other Abdomen: non tender, soft Extremities: moderate edema - 2+ pitting pedal and ankle edema bilat Neurologic: alert, oriented x 3 Intake and Output 10/22/17 10/23/17 19:00 07:00 Intake Total 896.103 ml 373.236 ml Output Total 1600 ml 500 ml Balance -703.897 ml -126.764 ml Intake Oral 885 ml 240 ml IV Total 11.103 ml 133.236 ml Output Urine Total 1600 ml 500 ml # Voids 5 # Bowel Movements 1 PAULIE RAMIREZ Oct 23, 2017 14:29
[2017-10-23 16:00] VITALS: BP 111/64
[2017-10-23 20:00] VITALS: BP 108/63
--- NOTE | 2017-10-23 22:09 | General Progress Note ---
Assessment/Plan Status: progressing Assessment/Plan Assessment/Plan 1. Acute on chronic left-sided heart failure. 2. History of cardiomyopathy. 3. Lower extremity edema. 4. Nonischemic cardiomyopathy, status post cardiac catheterization in 2016. 5. Polycythemia. 6. Hypertension. 7. Thrombocytopenia. 8. Hyperlipidemia. 9. Chronic kidney disease, stage 3-4. Plan: dobutamine infusion lasix IV diuresis nitro/hydralzine k replete as needed TTE noted EF 15% pulm HHN electrolyte replete DVt/GI prophylasix all questions answered. Subjective Date patient seen: Oct 23, 2017 HEENT: Reports: no symptoms Cardiovascular: Reports: no symptoms Respiratory: Reports: shortness of breath, SOB with excertion, wheezing Gastrointestinal/Abdominal: Reports: no symptoms Genitourinary: Reports: no symptoms Neurologic/Psychiatric: Reports: no symptoms Allergies: Coded Allergies: No Known Allergies (Unverified , 01/09/14) Objective Last 24 Hour Vital Signs Date Time Temp Pulse Resp B/P (MAP) Pulse Ox O2 Delivery O2 Flow Rate FiO2 10/23/17 21:37 111/64 10/23/17 17:34 111/64 10/23/17 16:00 100 10/23/17 16:00 97.5 96 20 111/64 96 Room Air 97.5 10/23/17 13:15 152/94 10/23/17 13:02 152/94 10/23/17 13:01 152/94 10/23/17 12:33 96.8 84 20 152/94 96 Room Air 96.8 10/23/17 12:00 102 10/23/17 08:24 97.5 98 20 114/56 98 Room Air 97.5 10/23/17 08:00 96 10/23/17 05:23 114/67 10/23/17 05:23 114/67 10/23/17 04:00 85 10/23/17 04:00 97.0 85 20 114/67 95 97.0 10/23/17 00:00 78 10/22/17 23:16 117/67 10/22/17 23:15 117/67 Intake and Output 10/22/17 10/23/17 19:00 07:00 Intake Total 896.103 ml 373.236 ml Output Total 1600 ml 500 ml Balance -703.897 ml -126.764 ml Intake Oral 885 ml 240 ml IV Total 11.103 ml 133.236 ml Output Urine Total 1600 ml 500 ml # Voids 5 # Bowel Movements 1 Height (Feet): 5 Height (Inches): 10.00 Weight (Pounds): 156 General Appearance: no apparent distress EENT: PERRL/EOMI, normal ENT inspection Neck: supple, normal inspection Cardiovascular: normal rate, regular rhythm, systolic murmur Respiratory/Chest: rhonchi - bilaterally Abdomen: non tender, soft, no mass Pelvis: normal external exam Extremities: normal range of motion, non-tender, no calf tenderness MADELAINE TOBIAS Oct 23, 2017 22:09
[2017-10-24] VITALS: BP 117/61
[2017-10-24 04:00] VITALS: BP 120/66
[2017-10-24] MEDS: HydrALAZINE 50mg tab ORAL SCH ×3 (05:50→21:31)
[2017-10-24] MEDS: Heparin 5000 units/ml inj SUBQ SCH ×2 (07:52→21:00)
[2017-10-24 07:59] VITALS: BP 137/82
[2017-10-24 08:31] LABS: HEMATOCRIT 54.8 % (42.0-52.0); HEMOGLOBIN 17.1 G/DL (14.2-18.0); MEAN CORPUSCULAR VOLUME 93 FL (80-99); PLATELET COUNT 98 K/UL (150-450); RED CELL DISTRIBUTION WIDTH 16.3 % (11.6-14.8); WHITE BLOOD COUNT 11.1 K/UL (4.8-10.8)
[2017-10-24] MEDS: Tamsulosin 0.4mg cap ORAL SCH ×2 (08:50→18:30)
[2017-10-24 09:09] LABS: ALANINE AMINOTRANSFERASE 64 U/L (12-78); ALBUMIN 3.4 G/DL (3.4-5.0); ALKALINE PHOSPHATASE 103 U/L (46-116); ANION GAP 8 mmol/L (5-15); ASPARTATE AMINO TRANSFERASE 44 U/L (15-37); BILIRUBIN,TOTAL 1.6 MG/DL (0.2-1.0); BLOOD UREA NITROGEN 49 mg/dL (7-18); CALCIUM 9.1 MG/DL (8.5-10.1); CARBON DIOXIDE 37 MMOL/L (21-32); CHLORIDE 96 MMOL/L (98-107); CREATININE 2.5 MG/DL (0.55-1.30); POTASSIUM 3.7 MMOL/L (3.5-5.1); SODIUM 141 MMOL/L (136-145)
[2017-10-24 09:11] LABS: BILIRUBIN,DIRECT 0.6 MG/DL (0.0-0.3)
--- NOTE | 2017-10-24 10:39 | Diagnostic Imaging Report ---
Indication: Shortness of breath Technique: XRAY Chest 1v Comparison: 10/22/2017 Findings: Cardiac silhouette is prominent. Degenerative changes of the spine are seen. There is no consolidation or pleural effusion. Osseous structures are stable. Impression: No acute cardiopulmonary disease. Stable cardiomegaly.
--- NOTE | 2017-10-24 11:23 | Pulmonology Progress Note ---
Assessment/Plan Problems: (1) Respiratory distress (2) Peripheral edema (3) Cardiomyopathy (4) CHF (congestive heart failure) (5) HTN (hypertension) (6) CKD (chronic kidney disease) (7) Malnutrition Assessment/Plan echo noted, EF is 10% on lasix 40Q8 IV 24 urine collection in process renal function improving still on Dobutamin drip bun/creatinine decreasing cxr reviewed 10/24: negative Subjective ROS Limited/Unobtainable: No Interval Events: no new complains Allergies: Coded Allergies: No Known Allergies (Unverified , 01/09/14) Objective Last 24 Hour Vital Signs Date Time Temp Pulse Resp B/P (MAP) Pulse Ox O2 Delivery O2 Flow Rate FiO2 10/24/17 08:03 107 10/24/17 07:59 98.4 103 18 137/82 94 Room Air 98.4 10/24/17 05:50 120/73 10/24/17 05:49 120/73 10/24/17 04:00 98.4 89 20 120/66 94 Room Air 98.4 10/24/17 04:00 76 10/24/17 00:15 117/61 10/24/17 00:00 105 10/24/17 00:00 97.7 97 18 117/61 93 Room Air 97.7 10/23/17 21:37 111/64 10/23/17 20:00 99 10/23/17 20:00 97.9 104 20 108/63 96 Room Air 97.9 10/23/17 17:34 111/64 10/23/17 16:00 100 10/23/17 16:00 97.5 96 20 111/64 96 Room Air 97.5 10/23/17 13:15 152/94 10/23/17 13:02 152/94 10/23/17 13:01 152/94 10/23/17 12:33 96.8 84 20 152/94 96 Room Air 96.8 10/23/17 12:00 102 Intake and Output 10/23/17 10/24/17 19:00 07:00 Intake Total 852.133 ml 622.133 ml Output Total 1250 ml 225 ml Balance -397.867 ml 397.133 ml Intake Oral 730 ml IV Total 122.133 ml 122.133 ml Other 500 ml Output Urine Total 1250 ml 225 ml Stool Total 0 ml # Bowel Movements 1 Objective General Appearance: WD/WN Lines, tubes and drains: peripheral HEENT: normocephalic, atraumatic Neck: non-tender, normal alignment Respiratory/Chest: chest wall non-tender, lungs clear Breasts: no masses Cardiovascular/Chest: normal peripheral pulses, normal rate Abdomen: normal bowel sounds, non tender Genitourinary/Rectal: normal genital exam, heme negative stool Extremities: normal range of motion, non-tender, + edema Skin Exam: normal pigmentation Laboratory Tests 10/24/17 07:30: White Blood Count 11.1H, Red Blood Count 5.90, Hemoglobin 17.1, Hematocrit 54.8H , Mean Corpuscular Volume 93, Mean Corpuscular Hemoglobin 29.0, Mean Corpuscular Hemoglobin Concent 31.2L, Red Cell Distribution Width 16.3H, Platelet Count 98L, Mean Platelet Volume 11.4H, Neutrophils (%) (Auto) , Lymphocytes (%) (Auto) , Monocytes (%) (Auto) , Eosinophils (%) (Auto) , Basophils (%) (Auto) , Neutrophils % (Manual) [Pending], Lymphocytes % (Manual) [Pending], Platelet Estimate [Pending], Platelet Morphology [Pending], Sodium Level 141, Potassium Level 3.7, Chloride Level 96L, Carbon Dioxide Level 37H, Anion Gap 8, Blood Urea Nitrogen 49H, Creatinine 2.5H, Estimat Glomerular Filtration Rate , Glucose Level 144H, Calcium Level 9.1, Total Bilirubin 1.6H, Direct Bilirubin 0.6H, Aspartate Amino Transf (AST/SGOT) 44H, Alanine Aminotransferase (ALT/SGPT) 64, Alkaline Phosphatase 103, Pro-B-Type Natriuretic Peptide 7128H, Total Protein 6.8, Albumin 3.4, Globulin 3.4, Albumin /Globulin Ratio 1.0 Current Medications Medications (Trade) Dose Ordered Sig/Denny Route PRN Reason Start Time Stop Time Status Last Admin Dose Admin Acetaminophen (Tylenol) 650 mg Q4H PRN ORAL Fever 10/21/17 15:30 11/17/17 23:29 Allopurinol (Allopurinol) 300 mg DAILY ORAL 10/22/17 09:00 11/20/17 08:59 10/24/17 08:50 Dextrose (Dextrose 50%) STAT PRN IV Hypoglycemia 10/21/17 23:30 11/17/17 23:29 Dobutamine HCl 250 ml @ 11.103 mls/ hr Q24H IV 10/21/17 13:00 11/20/17 12:59 10/23/17 13:15 Furosemide (Lasix) 40 mg EVERY 8 HOURS IV 10/21/17 14:00 11/18/17 05:59 10/24/17 05:18 Heparin Sodium (Porcine) (Heparin 5000 units/ml) 5,000 units EVERY 12 HOURS SUBQ 10/21/17 21:00 11/18/17 08:59 Hydralazine HCl (Apresoline) 50 mg Q8HR ORAL 10/21/17 22:00 11/20/17 21:59 10/24/17 05:50 Isosorbide Dinitrate (Isordil) 10 mg Q6HR ORAL 10/21/17 18:00 11/18/17 12:14 10/24/17 05:49 Ondansetron HCl (Zofran) 4 mg Q6H PRN IVP Nausea & Vomiting 10/21/17 17:30 11/17/17 23:29 Polyethylene Glycol (Miralax) 17 gm DAILYPRN PRN ORAL Constipation 10/21/17 23:30 11/17/17 23:29 Prednisone (predniSONE) 40 mg DAILY ORAL 10/22/17 09:00 11/18/17 08:59 10/24/17 08:50 Tamsulosin HCl (Flomax) 0.4 mg BID ORAL 10/21/17 18:00 11/18/17 18:29 10/24/17 08:50 Temazepam (Restoril) 15 mg HSPRN PRN ORAL Insomnia 10/21/17 23:30 10/25/17 23:29 AVRIL BANKS Oct 24, 2017 11:23
--- NOTE | 2017-10-24 11:26 | General Progress Note ---
Assessment/Plan Assessment/Plan #. Erythrocytosis, which is severe, this is new for the patient. --> Hemoglobin levels have been downtrending and improving. --> Iron 27, TIBC 145, Ferritin 186, B12 1227 --> JAK2 Pending. In addition, obtain peripheral smear. This could be secondary to multiple causes such as dehydration. 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 --> HEP and HIV panel negative. #. Thrombocytopenia, potentially secondary to infectious process versus medications versus polycythemia vera or other disorder of the bone marrow. --> HIV and Hep panel negative. --> Ultrasound of the abdomen completed. --> Results: The liver, demonstrated part of the pancreas, gallbladder, aorta and IVC, both kidneys, spleen appear unremarkable. There is a 4 cm right renal cyst noted centrally. There is no biliary ductal dilatation identified. --> Doppler evaluation of the main portal vein shows patency. There is no ascites. No hydronephrosis seen. CBD is 5.8 mm. #. Leukocytosis, potentially secondary to reactive process, mild. --> Monitor for improvement. #. Elevated creatinine, potentially secondary to chronic kidney disease. Continue to closely monitor. #. Renal insufficiency. #. History of deep vein thrombosis. #. Polycythemia, again potentially secondary to primary versus secondary. #. Hypertension. Continue to closely monitor. No acute cardiopulmonary disease. Stable cardiomegaly. Subjective Date patient seen: Oct 23, 2017 Constitutional: Denies: no symptoms, chills, diaphoresis, fever, malaise, weakness, other HEENT: Denies: no symptoms, eye pain, blurred vision, tearing, double vision, ear pain, ear discharge, nose pain, nose congestion, throat pain, throat swelling, mouth pain, mouth swelling, other Cardiovascular: Denies: no symptoms, chest pain, edema, irregular heart rate, lightheadedness, palpitations, syncope, other Respiratory: Denies: no symptoms, cough, orthopnea, shortness of breath, SOB with excertion, SOB at rest, sputum, stridor, wheezing, other Gastrointestinal/Abdominal: Denies: no symptoms, abdomen distended, abdominal pain, black stools, tarry stools, blood in stool, constipated, diarrhea, difficulty swallowing, nausea, poor appetite, poor fluid intake, rectal bleeding , vomiting, other Genitourinary: Denies: no symptoms, burning, discharge, frequency, flank pain, hematuria, incontinence, pain, urgency, other Neurologic/Psychiatric: Denies: no symptoms, anxiety, depressed, emotional problems, headache, numbness, paresthesia, pre-existing deficit, seizure, tingling, tremors, weakness, other Hematologic/Lymphatic: Reports: anemia Allergies: Coded Allergies: No Known Allergies (Unverified , 01/09/14) Subjective No fever or chills. Objective Last 24 Hour Vital Signs Date Time Temp Pulse Resp B/P (MAP) Pulse Ox O2 Delivery O2 Flow Rate FiO2 10/24/17 08:03 107 10/24/17 07:59 98.4 103 18 137/82 94 Room Air 98.4 10/24/17 05:50 120/73 10/24/17 05:49 120/73 10/24/17 04:00 98.4 89 20 120/66 94 Room Air 98.4 10/24/17 04:00 76 10/24/17 00:15 117/61 10/24/17 00:00 105 10/24/17 00:00 97.7 97 18 117/61 93 Room Air 97.7 10/23/17 21:37 111/64 10/23/17 20:00 99 10/23/17 20:00 97.9 104 20 108/63 96 Room Air 97.9 10/23/17 17:34 111/64 10/23/17 16:00 100 10/23/17 16:00 97.5 96 20 111/64 96 Room Air 97.5 10/23/17 13:15 152/94 10/23/17 13:02 152/94 10/23/17 13:01 152/94 10/23/17 12:33 96.8 84 20 152/94 96 Room Air 96.8 10/23/17 12:00 102 Intake and Output 10/23/17 10/24/17 20:00 08:00 Intake Total 852.133 ml 611.030 ml Output Total 1250 ml 225 ml Balance -397.867 ml 386.030 ml Intake Oral 730 ml IV Total 122.133 ml 111.030 ml Other 500 ml Output Urine Total 1250 ml 225 ml Stool Total 0 ml # Bowel Movements 1 Laboratory Tests 10/24/17 07:30: White Blood Count 11.1H, Red Blood Count 5.90, Hemoglobin 17.1, Hematocrit 54.8H , Mean Corpuscular Volume 93, Mean Corpuscular Hemoglobin 29.0, Mean Corpuscular Hemoglobin Concent 31.2L, Red Cell Distribution Width 16.3H, Platelet Count 98L, Mean Platelet Volume 11.4H, Neutrophils (%) (Auto) , Lymphocytes (%) (Auto) , Monocytes (%) (Auto) , Eosinophils (%) (Auto) , Basophils (%) (Auto) , Neutrophils % (Manual) [Pending], Lymphocytes % (Manual) [Pending], Platelet Estimate [Pending], Platelet Morphology [Pending], Sodium Level 141, Potassium Level 3.7, Chloride Level 96L, Carbon Dioxide Level 37H, Anion Gap 8, Blood Urea Nitrogen 49H, Creatinine 2.5H, Estimat Glomerular Filtration Rate , Glucose Level 144H, Calcium Level 9.1, Total Bilirubin 1.6H, Direct Bilirubin 0.6H, Aspartate Amino Transf (AST/SGOT) 44H, Alanine Aminotransferase (ALT/SGPT) 64, Alkaline Phosphatase 103, Pro-B-Type Natriuretic Peptide 7128H, Total Protein 6.8, Albumin 3.4, Globulin 3.4, Albumin /Globulin Ratio 1.0 Height (Feet): 5 Height (Inches): 10.00 Weight (Pounds): 141 General Appearance: confused Respiratory/Chest: decreased breath sounds Abdomen: non tender, soft Mahendra Marinelli Oct 24, 2017 11:26
[2017-10-24 11:36] VITALS: BP 130/77
[2017-10-24] MEDS: DOBUTamine 250mg/250ml Premix 250 ML IV SCH (14:12)
--- NOTE | 2017-10-24 14:41 | Cardiology Progress Note ---
Assessment/Plan Problem List: (1) Elevated troponin (2) Cardiomyopathy (3) Peripheral edema (4) Dyspnea (5) CHF (congestive heart failure) (6) HTN (hypertension) (7) CKD (chronic kidney disease) Status: stable, progressing Status Narrative Dilated cardiomyopathy, with severe RV/LV systolic dysfunction, EF less than 20% . Admitted w/ decompensated CHF On dobutamine, lasix, w/ good diuresis- i/os negative and wt down significantly (11kg - ? accurate) since adm Pt also w/ CKD - Cr improving He has erythrocytosis - uncertain cause Assessment/Plan Continue optimization of medical therapy- Remain on low dose dobutamine Contine iv lasix. Will attempt to add MONO inhibitor, as pt tolerated Entresto in past Add aldactone No b blockers at this time, as pt wheezing and hx of copd Followup labs in am, i/os, wts Subjective ROS Limited/Unobtainable: No Subjective Cardiology for Dr. Bustamante Pt denies dyspnea. Anxious for dc home Objective Last 24 Hour Vital Signs Date Time Temp Pulse Resp B/P (MAP) Pulse Ox O2 Delivery O2 Flow Rate FiO2 10/24/17 14:12 130/77 10/24/17 12:36 130/77 10/24/17 11:36 98.0 100 18 130/77 94 Room Air 98.0 10/24/17 08:03 107 10/24/17 07:59 98.4 103 18 137/82 94 Room Air 98.4 10/24/17 05:50 120/73 10/24/17 05:49 120/73 10/24/17 04:00 98.4 89 20 120/66 94 Room Air 98.4 10/24/17 04:00 76 10/24/17 00:15 117/61 10/24/17 00:00 105 10/24/17 00:00 97.7 97 18 117/61 93 Room Air 97.7 10/23/17 21:37 111/64 10/23/17 20:00 99 10/23/17 20:00 97.9 104 20 108/63 96 Room Air 97.9 10/23/17 17:34 111/64 10/23/17 16:00 100 10/23/17 16:00 97.5 96 20 111/64 96 Room Air 97.5 General Appearance: WD/WN, no apparent distress EENT: PERRL/EOMI Neck: supple, no JVD Rhythm: NSR Cardiovascular: normal rate, regular rhythm, gallop/S3 Respiratory/Chest: lungs clear Abdomen: normal bowel sounds, non tender, soft Extremities: moderate edema - 2+ pitting pedal and ankle edema bilat L > R Intake and Output 10/23/17 10/24/17 19:00 07:00 Intake Total 852.133 ml 622.133 ml Output Total 1250 ml 225 ml Balance -397.867 ml 397.133 ml Intake Oral 730 ml IV Total 122.133 ml 122.133 ml Other 500 ml Output Urine Total 1250 ml 225 ml Stool Total 0 ml # Bowel Movements 1 Laboratory Tests Test 10/24/17 07:30 White Blood Count 11.1 K/UL (4.8-10.8) H Red Blood Count 5.90 M/UL (4.70-6.10) Hemoglobin 17.1 G/DL (14.2-18.0) Hematocrit 54.8 % (42.0-52.0) H Mean Corpuscular Volume 93 FL (80-99) Mean Corpuscular Hemoglobin 29.0 PG (27.0-31.0) Mean Corpuscular Hemoglobin Concent 31.2 G/DL (32.0-36.0) L Red Cell Distribution Width 16.3 % (11.6-14.8) H Platelet Count 98 K/UL (150-450) L Mean Platelet Volume 11.4 FL (6.5-10.1) H Neutrophils (%) (Auto) % (45.0-75.0) Lymphocytes (%) (Auto) % (20.0-45.0) Monocytes (%) (Auto) % (1.0-10.0) Eosinophils (%) (Auto) % (0.0-3.0) Basophils (%) (Auto) % (0.0-2.0) Differential Total Cells Counted 100 Neutrophils % (Manual) 87 % (45-75) H Lymphocytes % (Manual) 5 % (20-45) L Monocytes % (Manual) 8 % (1-10) Eosinophils % (Manual) 0 % (0-3) Basophils % (Manual) 0 % (0-2) Band Neutrophils 0 % (0-8) Platelet Estimate Decreased L Platelet Morphology Normal Red Blood Cell Morphology Normal Sodium Level 141 MMOL/L (136-145) Potassium Level 3.7 MMOL/L (3.5-5.1) Chloride Level 96 MMOL/L (98-107) L Carbon Dioxide Level 37 MMOL/L (21-32) H Anion Gap 8 mmol/L (5-15) Blood Urea Nitrogen 49 mg/dL (7-18) H Creatinine 2.5 MG/DL (0.55-1.30) H Estimat Glomerular Filtration Rate mL/min (>60) Glucose Level 144 MG/DL (74-106) H Calcium Level 9.1 MG/DL (8.5-10.1) Total Bilirubin 1.6 MG/DL (0.2-1.0) H Direct Bilirubin 0.6 MG/DL (0.0-0.3) H Aspartate Amino Transf (AST/SGOT) 44 U/L (15-37) H Alanine Aminotransferase (ALT/SGPT) 64 U/L (12-78) Alkaline Phosphatase 103 U/L (46-116) Pro-B-Type Natriuretic Peptide 7128 pg/mL (0-125) H Total Protein 6.8 G/DL (6.4-8.2) Albumin 3.4 G/DL (3.4-5.0) Globulin 3.4 g/dL Albumin/Globulin Ratio 1.0 (1.0-2.7) PAULIE RAMIREZ Oct 24, 2017 14:41
--- NOTE | 2017-10-24 14:45 | Nephrology Progress Note ---
Assessment/Plan Problem List: (1) CKD (chronic kidney disease) Assessment: acute on chronic (2) Cardiomyopathy (3) Elevated troponin Assessment FIONA on CKD to cardiorenal Cr stable 3.8 to 2.5 chronic systolic heart failure Right heart failuer Edema due to above and possible venous insuf Non-ischemic cardiomyopathy no cad by cath 2016 History of DVT none now polycythemia unclear etiology should eval to see if primary or secondary pulmonary HTn Thrombocytopenia HTN Plan Plan; Optimize cardiac status monitor renal parameters 24 H urine for CrCl 15 Avoid nephrotoxics may require HD and UF echo: Severe global left ventricular hypokinesis with septal thinning. Left ventricular ejection fraction estimated to be 10-15 %. Subjective ROS Limited/Unobtainable: No Objective Objective Last 24 Hour Vital Signs Date Time Temp Pulse Resp B/P (MAP) Pulse Ox O2 Delivery O2 Flow Rate FiO2 10/24/17 14:37 130/77 10/24/17 14:12 130/77 10/24/17 12:36 130/77 10/24/17 11:36 98.0 100 18 130/77 94 Room Air 98.0 10/24/17 08:03 107 10/24/17 07:59 98.4 103 18 137/82 94 Room Air 98.4 10/24/17 05:50 120/73 10/24/17 05:49 120/73 10/24/17 04:00 98.4 89 20 120/66 94 Room Air 98.4 10/24/17 04:00 76 10/24/17 00:15 117/61 10/24/17 00:00 105 10/24/17 00:00 97.7 97 18 117/61 93 Room Air 97.7 10/23/17 21:37 111/64 10/23/17 20:00 99 10/23/17 20:00 97.9 104 20 108/63 96 Room Air 97.9 10/23/17 17:34 111/64 10/23/17 16:00 100 10/23/17 16:00 97.5 96 20 111/64 96 Room Air 97.5 Intake and Output 10/23/17 10/24/17 19:00 07:00 Intake Total 852.133 ml 622.133 ml Output Total 1250 ml 225 ml Balance -397.867 ml 397.133 ml Intake Oral 730 ml IV Total 122.133 ml 122.133 ml Other 500 ml Output Urine Total 1250 ml 225 ml Stool Total 0 ml # Bowel Movements 1 Laboratory Tests 10/24/17 07:30: White Blood Count 11.1H, Red Blood Count 5.90, Hemoglobin 17.1, Hematocrit 54.8H , Mean Corpuscular Volume 93, Mean Corpuscular Hemoglobin 29.0, Mean Corpuscular Hemoglobin Concent 31.2L, Red Cell Distribution Width 16.3H, Platelet Count 98L, Mean Platelet Volume 11.4H, Neutrophils (%) (Auto) , Lymphocytes (%) (Auto) , Monocytes (%) (Auto) , Eosinophils (%) (Auto) , Basophils (%) (Auto) , Differential Total Cells Counted 100, Neutrophils % ( Manual) 87H, Lymphocytes % (Manual) 5L, Monocytes % (Manual) 8, Eosinophils % ( Manual) 0, Basophils % (Manual) 0, Band Neutrophils 0, Platelet Estimate DecreasedL, Platelet Morphology Normal, Red Blood Cell Morphology Normal, Sodium Level 141, Potassium Level 3.7, Chloride Level 96L, Carbon Dioxide Level 37H, Anion Gap 8, Blood Urea Nitrogen 49H, Creatinine 2.5H, Estimat Glomerular Filtration Rate , Glucose Level 144H, Calcium Level 9.1, Total Bilirubin 1.6H, Direct Bilirubin 0.6H, Aspartate Amino Transf (AST/SGOT) 44H, Alanine Aminotransferase (ALT/SGPT) 64, Alkaline Phosphatase 103, Pro-B-Type Natriuretic Peptide 7128H, Total Protein 6.8, Albumin 3.4, Globulin 3.4, Albumin /Globulin Ratio 1.0 Height (Feet): 5 Height (Inches): 10.00 Weight (Pounds): 141 General Appearance: no apparent distress Cardiovascular: tachycardia Respiratory/Chest: decreased breath sounds Abdomen: distended Objective no change BHARATHI LOVE Oct 24, 2017 14:45
[2017-10-24 16:00] VITALS: BP 117/71
[2017-10-24 20:00] VITALS: BP 131/73
[2017-10-24] MEDS: Enalapril 2.5mg tab ORAL SCH (21:00)
--- NOTE | 2017-10-24 23:33 | General Progress Note ---
Assessment/Plan Assessment/Plan Assessment/Plan 1. Acute on chronic left-sided heart failure. 2. History of cardiomyopathy. 3. Lower extremity edema. 4. Nonischemic cardiomyopathy, status post cardiac catheterization in 2016. 5. Polycythemia. 6. Hypertension. 7. Thrombocytopenia. 8. Hyperlipidemia. 9. Chronic kidney disease, stage 3-4. Plan: dobutamine infusion lasix IV diuresis nitro/hydralzine MONO inhibitor aldactone k replete as needed TTE noted EF 15% pulm HHN electrolyte replete DVt/GI prophylasix all questions answered. Subjective Date patient seen: Oct 24, 2017 Constitutional: Reports: weakness Respiratory: Reports: cough, orthopnea, SOB with excertion Gastrointestinal/Abdominal: Reports: no symptoms Genitourinary: Reports: no symptoms Neurologic/Psychiatric: Reports: no symptoms Endocrine: Reports: no symptoms Hematologic/Lymphatic: Reports: no symptoms Allergies: Coded Allergies: No Known Allergies (Unverified , 01/09/14) Objective Last 24 Hour Vital Signs Date Time Temp Pulse Resp B/P (MAP) Pulse Ox O2 Delivery O2 Flow Rate FiO2 10/24/17 21:31 131/73 10/24/17 21:00 131/73 10/24/17 17:08 117/71 10/24/17 16:18 122 10/24/17 16:00 98.0 104 18 117/71 94 Room Air 98.0 10/24/17 14:37 130/77 10/24/17 14:12 130/77 10/24/17 12:36 130/77 10/24/17 11:50 99 10/24/17 11:36 98.0 100 18 130/77 94 Room Air 98.0 10/24/17 08:03 107 10/24/17 07:59 98.4 103 18 137/82 94 Room Air 98.4 10/24/17 05:50 120/73 10/24/17 05:49 120/73 10/24/17 04:00 98.4 89 20 120/66 94 Room Air 98.4 10/24/17 04:00 76 10/24/17 00:15 117/61 10/24/17 00:00 105 10/24/17 00:00 97.7 97 18 117/61 93 Room Air 97.7 Intake and Output 10/23/17 10/24/17 19:00 07:00 Intake Total 852.133 ml 633.236 ml Output Total 1250 ml 225 ml Balance -397.867 ml 408.236 ml Intake Oral 730 ml IV Total 122.133 ml 133.236 ml Other 500 ml Output Urine Total 1250 ml 225 ml Stool Total 0 ml # Bowel Movements 1 Laboratory Tests 10/24/17 07:30: White Blood Count 11.1H, Red Blood Count 5.90, Hemoglobin 17.1, Hematocrit 54.8H , Mean Corpuscular Volume 93, Mean Corpuscular Hemoglobin 29.0, Mean Corpuscular Hemoglobin Concent 31.2L, Red Cell Distribution Width 16.3H, Platelet Count 98L, Mean Platelet Volume 11.4H, Neutrophils (%) (Auto) , Lymphocytes (%) (Auto) , Monocytes (%) (Auto) , Eosinophils (%) (Auto) , Basophils (%) (Auto) , Differential Total Cells Counted 100, Neutrophils % ( Manual) 87H, Lymphocytes % (Manual) 5L, Monocytes % (Manual) 8, Eosinophils % ( Manual) 0, Basophils % (Manual) 0, Band Neutrophils 0, Platelet Estimate DecreasedL, Platelet Morphology Normal, Red Blood Cell Morphology Normal, Sodium Level 141, Potassium Level 3.7, Chloride Level 96L, Carbon Dioxide Level 37H, Anion Gap 8, Blood Urea Nitrogen 49H, Creatinine 2.5H, Estimat Glomerular Filtration Rate , Glucose Level 144H, Calcium Level 9.1, Total Bilirubin 1.6H, Direct Bilirubin 0.6H, Aspartate Amino Transf (AST/SGOT) 44H, Alanine Aminotransferase (ALT/SGPT) 64, Alkaline Phosphatase 103, Pro-B-Type Natriuretic Peptide 7128H, Total Protein 6.8, Albumin 3.4, Globulin 3.4, Albumin /Globulin Ratio 1.0 Height (Feet): 5 Height (Inches): 10.00 Weight (Pounds): 141 General Appearance: no apparent distress EENT: normal ENT inspection Neck: supple Cardiovascular: normal rate, no JVD, systolic murmur Respiratory/Chest: lungs clear, no respiratory distress Abdomen: normal bowel sounds, soft, no mass Pelvis: normal external exam Extremities: normal range of motion, non-tender, no calf tenderness Edema: trace edema MADELAINE TOBIAS Oct 24, 2017 23:33
[2017-10-25] VITALS: BP 114/66
[2017-10-25 04:00] VITALS: BP 124/77
[2017-10-25] MEDS: HydrALAZINE 50mg tab ORAL SCH ×2 (06:19→14:00)
[2017-10-25 08:00] VITALS: BP 98/55
[2017-10-25 08:43] LABS: HEMATOCRIT 49.1 % (42.0-52.0); HEMOGLOBIN 15.8 G/DL (14.2-18.0); MEAN CORPUSCULAR VOLUME 92 FL (80-99); PLATELET COUNT 99 K/UL (150-450); RED BLOOD COUNT 5.34 M/UL (4.70-6.10)
[2017-10-25] MEDS: Heparin 5000 units/ml inj SUBQ SCH (09:00)
[2017-10-25] MEDS: Enalapril 2.5mg tab ORAL SCH (09:00)
[2017-10-25 09:05] LABS: ALANINE AMINOTRANSFERASE 57 U/L (12-78); ALBUMIN/GLOBULIN RATIO 1.1 (1.0-2.7); ALKALINE PHOSPHATASE 83 U/L (46-116); ANION GAP 7 mmol/L (5-15); ASPARTATE AMINO TRANSFERASE 31 U/L (15-37); BILIRUBIN,TOTAL 1.1 MG/DL (0.2-1.0); BLOOD UREA NITROGEN 52 mg/dL (7-18); CALCIUM 8.6 MG/DL (8.5-10.1); CARBON DIOXIDE 35 MMOL/L (21-32); CHLORIDE 95 MMOL/L (98-107); CREATININE 2.4 MG/DL (0.55-1.30); PHOSPHORUS 2.9 MG/DL (2.5-4.9); SODIUM 136 MMOL/L (136-145)
[2017-10-25 09:06] LABS: BILIRUBIN,DIRECT 0.6 MG/DL (0.0-0.3)
--- NOTE | 2017-10-25 09:41 | Wound Care Consultation ---
Wound Assessment Wound Assessment : Wound Number: 1 Wound Present on Admission: No New Wound: Yes Status Change of Wound: No Wound Location Body Site Modif: right, lower Wound Location Body Site: leg Wound Type: other - self inflicted scratches Camelia Test: Does not Camelia Wound Thickness: Partial Thickness Percent of Wound Black/Brown: 100 - scabs Wound Drainage Amount: None Wound Drainage Odor: None/Absent Tissue Surrounding Wound: Intact Wound General Appearance: Open to air, Clean/Dry - self inflicted scratches with scabs and dry skin Wound Comment #1 right lower leg self inflicted scratches with scabs appearing noted with dry skin. #2 left and right lower leg dry skin Recommendation -Keep clean and dry. -provide moisturizer -turn and reposition -local wound care as recommended. -Assess and notify MD for any change of condition. REED JUAREZ Oct 25, 2017 09:41
[2017-10-25] MEDS: Tamsulosin 0.4mg cap ORAL SCH (09:52)
--- NOTE | 2017-10-25 10:12 | General Progress Note ---
Assessment/Plan Assessment/Plan #. Leukocytosis, potentially secondary to reactive process, mild. --> Monitor for improvement. --> Has been improving steadily. #. Erythrocytosis, which is severe, this is new for the patient. --> Hemoglobin levels have been downtrending and improving. --> Iron 27, TIBC 145, Ferritin 186, B12 1227 --> JAK2 still pending. 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 --> HEP and HIV panel negative. #. Thrombocytopenia, potentially secondary to infectious process versus medications versus polycythemia vera or other disorder of the bone marrow. --> HIV and Hep panel negative. --> Ultrasound of the abdomen completed. --> Results: The liver, demonstrated part of the pancreas, gallbladder, aorta and IVC, both kidneys, spleen appear unremarkable. There is a 4 cm right renal cyst noted centrally. There is no biliary ductal dilatation identified. --> Doppler evaluation of the main portal vein shows patency. There is no ascites. No hydronephrosis seen. CBD is 5.8 mm. #. Elevated creatinine, potentially secondary to chronic kidney disease. Continue to closely monitor. #. Renal insufficiency. #. History of deep vein thrombosis. #. Polycythemia, again potentially secondary to primary versus secondary. #. Hypertension. Continue to closely monitor. No acute cardiopulmonary disease. Stable cardiomegaly. Subjective Date patient seen: Oct 24, 2017 Constitutional: Denies: no symptoms, chills, diaphoresis, fever, malaise, weakness, other HEENT: Denies: no symptoms, eye pain, blurred vision, tearing, double vision, ear pain, ear discharge, nose pain, nose congestion, throat pain, throat swelling, mouth pain, mouth swelling, other Cardiovascular: Denies: no symptoms, chest pain, edema, irregular heart rate, lightheadedness, palpitations, syncope, other Respiratory: Denies: no symptoms, cough, orthopnea, shortness of breath, SOB with excertion, SOB at rest, sputum, stridor, wheezing, other Gastrointestinal/Abdominal: Denies: no symptoms, abdomen distended, abdominal pain, black stools, tarry stools, blood in stool, constipated, diarrhea, difficulty swallowing, nausea, poor appetite, poor fluid intake, rectal bleeding , vomiting, other Genitourinary: Denies: no symptoms, burning, discharge, frequency, flank pain, hematuria, incontinence, pain, urgency, other Allergies: Coded Allergies: No Known Allergies (Unverified , 01/09/14) Subjective No acute events. No fever. Objective Last 24 Hour Vital Signs Date Time Temp Pulse Resp B/P (MAP) Pulse Ox O2 Delivery O2 Flow Rate FiO2 10/25/17 09:00 98/55 10/25/17 08:00 97.0 100 18 98/55 98 Room Air 97.0 10/25/17 06:19 124/77 10/25/17 06:18 124/77 10/25/17 04:00 97.7 104 18 124/77 95 Room Air 97.7 10/25/17 04:00 90 10/25/17 00:00 102 10/25/17 00:00 97.7 104 18 114/66 95 Room Air 97.7 10/25/17 00:00 114/66 10/24/17 21:31 131/73 10/24/17 21:00 131/73 10/24/17 20:00 90 10/24/17 20:00 97.0 95 20 131/73 97 Room Air 97.0 10/24/17 17:08 117/71 10/24/17 16:18 122 10/24/17 16:00 98.0 104 18 117/71 94 Room Air 98.0 10/24/17 14:37 130/77 10/24/17 14:12 130/77 10/24/17 12:36 130/77 10/24/17 11:50 99 10/24/17 11:36 98.0 100 18 130/77 94 Room Air 98.0 Intake and Output 10/24/17 10/25/17 19:00 07:00 Intake Total 1281.030 ml 600 ml Output Total 1300 ml 625 ml Balance -18.970 ml -25 ml Intake Oral 1170 ml 600 ml IV Total 111.030 ml Output Urine Total 1300 ml 625 ml # Voids 4 Laboratory Tests 10/25/17 08:20: White Blood Count 12.0H, Red Blood Count 5.34, Hemoglobin 15.8, Hematocrit 49.1 , Mean Corpuscular Volume 92, Mean Corpuscular Hemoglobin 29.6, Mean Corpuscular Hemoglobin Concent 32.2, Red Cell Distribution Width 16.0H, Platelet Count 99L, Mean Platelet Volume 11.9H, Neutrophils (%) (Auto) , Lymphocytes (%) (Auto) , Monocytes (%) (Auto) , Eosinophils (%) (Auto) , Basophils (%) (Auto) , Neutrophils % (Manual) [Pending], Lymphocytes % (Manual) [Pending], Platelet Estimate [Pending], Platelet Morphology [Pending], Sodium Level 136, Potassium Level 3.0L, Chloride Level 95L, Carbon Dioxide Level 35H, Anion Gap 7, Blood Urea Nitrogen 52H, Creatinine 2.4H, Estimat Glomerular Filtration Rate , Glucose Level 151H, Uric Acid 9.7H, Calcium Level 8.6, Phosphorus Level 2.9, Magnesium Level 1.4L, Total Bilirubin 1.1H, Direct Bilirubin 0.6H, Aspartate Amino Transf (AST/SGOT) 31, Alanine Aminotransferase ( ALT/SGPT) 57, Alkaline Phosphatase 83, Pro-B-Type Natriuretic Peptide 5941H, Total Protein 5.8L, Albumin 3.0L, Globulin 2.8, Albumin/Globulin Ratio 1.1 Height (Feet): 5 Height (Inches): 10.00 Weight (Pounds): 141 General Appearance: no apparent distress Respiratory/Chest: decreased breath sounds Abdomen: non tender, soft Mahendra Marinelli Oct 25, 2017 10:12
--- NOTE | 2017-10-25 10:22 | Nephrology Progress Note ---
Assessment/Plan Problem List: (1) CKD (chronic kidney disease) Assessment: acute on chronic (2) Cardiomyopathy (3) Elevated troponin Assessment FIONA on CKD to cardiorenal Cr stable 3.8 to 2.5 chronic systolic heart failure Right heart failuer Edema due to above and possible venous insuf Non-ischemic cardiomyopathy no cad by cath 2016 History of DVT none now polycythemia unclear etiology should eval to see if primary or secondary pulmonary HTn Thrombocytopenia HTN Plan Plan; taper steroids- K supplement Optimize cardiac status monitor renal parameters 24 H urine for CrCl 15 Avoid nephrotoxics may require HD and UF echo: Severe global left ventricular hypokinesis with septal thinning. Left ventricular ejection fraction estimated to be 10-15 %. Subjective ROS Limited/Unobtainable: No Constitutional: Reports: malaise Objective Objective Last 24 Hour Vital Signs Date Time Temp Pulse Resp B/P (MAP) Pulse Ox O2 Delivery O2 Flow Rate FiO2 10/25/17 09:00 98/55 10/25/17 08:00 97.0 100 18 98/55 98 Room Air 97.0 10/25/17 06:19 124/77 10/25/17 06:18 124/77 10/25/17 04:00 97.7 104 18 124/77 95 Room Air 97.7 10/25/17 04:00 90 10/25/17 00:00 102 10/25/17 00:00 97.7 104 18 114/66 95 Room Air 97.7 10/25/17 00:00 114/66 10/24/17 21:31 131/73 10/24/17 21:00 131/73 10/24/17 20:00 90 10/24/17 20:00 97.0 95 20 131/73 97 Room Air 97.0 10/24/17 17:08 117/71 10/24/17 16:18 122 10/24/17 16:00 98.0 104 18 117/71 94 Room Air 98.0 10/24/17 14:37 130/77 10/24/17 14:12 130/77 10/24/17 12:36 130/77 10/24/17 11:50 99 10/24/17 11:36 98.0 100 18 130/77 94 Room Air 98.0 Intake and Output 10/24/17 10/25/17 19:00 07:00 Intake Total 1281.030 ml 600 ml Output Total 1300 ml 625 ml Balance -18.970 ml -25 ml Intake Oral 1170 ml 600 ml IV Total 111.030 ml Output Urine Total 1300 ml 625 ml # Voids 4 Laboratory Tests 10/25/17 08:20: White Blood Count 12.0H, Red Blood Count 5.34, Hemoglobin 15.8, Hematocrit 49.1 , Mean Corpuscular Volume 92, Mean Corpuscular Hemoglobin 29.6, Mean Corpuscular Hemoglobin Concent 32.2, Red Cell Distribution Width 16.0H, Platelet Count 99L, Mean Platelet Volume 11.9H, Neutrophils (%) (Auto) , Lymphocytes (%) (Auto) , Monocytes (%) (Auto) , Eosinophils (%) (Auto) , Basophils (%) (Auto) , Neutrophils % (Manual) [Pending], Lymphocytes % (Manual) [Pending], Platelet Estimate [Pending], Platelet Morphology [Pending], Sodium Level 136, Potassium Level 3.0L, Chloride Level 95L, Carbon Dioxide Level 35H, Anion Gap 7, Blood Urea Nitrogen 52H, Creatinine 2.4H, Estimat Glomerular Filtration Rate , Glucose Level 151H, Uric Acid 9.7H, Calcium Level 8.6, Phosphorus Level 2.9, Magnesium Level 1.4L, Total Bilirubin 1.1H, Direct Bilirubin 0.6H, Aspartate Amino Transf (AST/SGOT) 31, Alanine Aminotransferase ( ALT/SGPT) 57, Alkaline Phosphatase 83, Pro-B-Type Natriuretic Peptide 5941H, Total Protein 5.8L, Albumin 3.0L, Globulin 2.8, Albumin/Globulin Ratio 1.1 Height (Feet): 5 Height (Inches): 10.00 Weight (Pounds): 141 General Appearance: no apparent distress Cardiovascular: tachycardia Respiratory/Chest: decreased breath sounds Abdomen: distended Objective no change BHARATHI LOVE Oct 25, 2017 10:22
[2017-10-25 12:00] VITALS: BP 120/57
[2017-10-25] MEDS ORDERED: FLOMAX0.4 MG ORAL (13:20)
[2017-10-25] MEDS ORDERED: ISOSORBIDE DINI10 MG ORAL (13:20)
[2017-10-25] MEDS ORDERED: APRESOLINE50 MG ORAL (13:20)
--- NOTE | 2017-10-25 13:22 | Pulmonology Progress Note ---
Assessment/Plan Problems: (1) Respiratory distress (2) Peripheral edema (3) Cardiomyopathy (4) CHF (congestive heart failure) (5) HTN (hypertension) (6) CKD (chronic kidney disease) (7) Malnutrition Assessment/Plan EF is 10% on lasix 40Q8 IV 24 urine collection in process renal function improving dc Dobutamin drip bun/creatinine decreasing dc home with prescriptions ( given) Subjective ROS Limited/Unobtainable: No Constitutional: Reports: no symptoms HEENT: Repors: no symptoms Respiratory: Reports: no symptoms Cardiovascular: Reports: no symptoms Allergies: Coded Allergies: No Known Allergies (Unverified , 01/09/14) Objective Last 24 Hour Vital Signs Date Time Temp Pulse Resp B/P (MAP) Pulse Ox O2 Delivery O2 Flow Rate FiO2 10/25/17 12:00 120/57 10/25/17 09:00 98/55 10/25/17 08:00 97.0 100 18 98/55 98 Room Air 97.0 10/25/17 06:19 124/77 10/25/17 06:18 124/77 10/25/17 04:00 97.7 104 18 124/77 95 Room Air 97.7 10/25/17 04:00 90 10/25/17 00:00 102 10/25/17 00:00 97.7 104 18 114/66 95 Room Air 97.7 10/25/17 00:00 114/66 10/24/17 21:31 131/73 10/24/17 21:00 131/73 10/24/17 20:00 90 10/24/17 20:00 97.0 95 20 131/73 97 Room Air 97.0 10/24/17 17:08 117/71 10/24/17 16:18 122 10/24/17 16:00 98.0 104 18 117/71 94 Room Air 98.0 10/24/17 14:37 130/77 10/24/17 14:12 130/77 Intake and Output 10/24/17 10/25/17 19:00 07:00 Intake Total 1281.030 ml 600 ml Output Total 1300 ml 625 ml Balance -18.970 ml -25 ml Intake Oral 1170 ml 600 ml IV Total 111.030 ml Output Urine Total 1300 ml 625 ml # Voids 4 Objective General Appearance: WD/WN Lines, tubes and drains: peripheral HEENT: normocephalic, atraumatic Neck: non-tender, normal alignment Respiratory/Chest: chest wall non-tender, lungs clear Breasts: no masses Cardiovascular/Chest: normal peripheral pulses, normal rate Abdomen: normal bowel sounds, non tender Genitourinary/Rectal: normal genital exam, heme negative stool Extremities: normal range of motion, non-tender, + edema Skin Exam: normal pigmentation Laboratory Tests 10/25/17 08:20: White Blood Count 12.0H, Red Blood Count 5.34, Hemoglobin 15.8, Hematocrit 49.1 , Mean Corpuscular Volume 92, Mean Corpuscular Hemoglobin 29.6, Mean Corpuscular Hemoglobin Concent 32.2, Red Cell Distribution Width 16.0H, Platelet Count 99L, Mean Platelet Volume 11.9H, Neutrophils (%) (Auto) , Lymphocytes (%) (Auto) , Monocytes (%) (Auto) , Eosinophils (%) (Auto) , Basophils (%) (Auto) , Differential Total Cells Counted 100, Neutrophils % ( Manual) 91H, Lymphocytes % (Manual) 4L, Monocytes % (Manual) 5, Eosinophils % ( Manual) 0, Basophils % (Manual) 0, Band Neutrophils 0, Platelet Estimate DecreasedL, Platelet Morphology Normal, Anisocytosis 1+, Sodium Level 136, Potassium Level 3.0L, Chloride Level 95L, Carbon Dioxide Level 35H, Anion Gap 7 , Blood Urea Nitrogen 52H, Creatinine 2.4H, Estimat Glomerular Filtration Rate , Glucose Level 151H, Uric Acid 9.7H, Calcium Level 8.6, Phosphorus Level 2.9, Magnesium Level 1.4L, Total Bilirubin 1.1H, Direct Bilirubin 0.6H, Aspartate Amino Transf (AST/SGOT) 31, Alanine Aminotransferase (ALT/SGPT) 57, Alkaline Phosphatase 83, Pro-B-Type Natriuretic Peptide 5941H, Total Protein 5.8L, Albumin 3.0L, Globulin 2.8, Albumin/Globulin Ratio 1.1 Current Medications Medications (Trade) Dose Ordered Sig/Denny Route PRN Reason Start Time Stop Time Status Last Admin Dose Admin Acetaminophen (Tylenol) 650 mg Q4H PRN ORAL Fever 10/21/17 15:30 11/17/17 23:29 Allopurinol (Allopurinol) 300 mg DAILY ORAL 10/22/17 09:00 11/20/17 08:59 10/25/17 08:59 Dextrose (Dextrose 50%) STAT PRN IV Hypoglycemia 10/21/17 23:30 11/17/17 23:29 Dobutamine HCl 250 ml @ 11.103 mls/ hr Q24H IV 10/21/17 13:00 11/20/17 12:59 10/24/17 14:12 Enalapril Maleate (Vasotec) 2.5 mg EVERY 12 HOURS ORAL 10/24/17 21:00 11/23/17 20:59 10/24/17 21:00 Furosemide (Lasix) 40 mg EVERY 12 HOURS IV 10/24/17 21:00 11/18/17 05:59 10/25/17 08:59 Heparin Sodium (Porcine) (Heparin 5000 units/ml) 5,000 units EVERY 12 HOURS SUBQ 10/21/17 21:00 11/18/17 08:59 Hydralazine HCl (Apresoline) 50 mg Q8HR ORAL 10/21/17 22:00 11/20/17 21:59 10/25/17 06:19 Isosorbide Dinitrate (Isordil) 10 mg Q6HR ORAL 10/21/17 18:00 11/18/17 12:14 10/25/17 06:18 Magnesium Sulfate 100 ml @ 100 mls/hr Q1H IVPB 10/25/17 11:00 10/25/17 14:59 10/25/17 12:14 Ondansetron HCl (Zofran) 4 mg Q6H PRN IVP Nausea & Vomiting 10/21/17 17:30 11/17/17 23:29 Polyethylene Glycol (Miralax) 17 gm DAILYPRN PRN ORAL Constipation 10/21/17 23:30 11/17/17 23:29 Potassium Chloride (K-Dur) 40 meq TWICE A DAY ORAL 10/25/17 18:00 11/24/17 17:59 Prednisone (predniSONE) 20 mg DAILY ORAL 10/26/17 09:00 11/25/17 08:59 Tamsulosin HCl (Flomax) 0.4 mg BID ORAL 10/21/17 18:00 11/18/17 18:29 10/25/17 09:52 Temazepam (Restoril) 15 mg HSPRN PRN ORAL Insomnia 10/21/17 23:30 10/25/17 23:29 Vitamin A/Vitamin D (A & D Oint) 1 applic EVERY 12 HOURS [facility] 10/25/17 21:00 11/24/17 20:59 AVRIL BANKS Oct 25, 2017 13:22
--- NOTE | 2017-10-25 13:29 | General Progress Note ---
Assessment/Plan Status: doing well Assessment/Plan Assessment/Plan 1. Acute on chronic left-sided heart failure. 2. History of cardiomyopathy. 3. Lower extremity edema. 4. Nonischemic cardiomyopathy, status post cardiac catheterization in 2016. 5. Polycythemia. 6. Hypertension. 7. Thrombocytopenia. 8. Hyperlipidemia. 9. Chronic kidney disease, stage 3-4. Plan: dobutamine infusion DC lasix nitro/hydralzine MONO inhibitor aldactone TTE noted EF 15% pulm HHN electrolyte replete DVt/GI prophylasix all questions answered. DC planning Subjective Date patient seen: Oct 25, 2017 Constitutional: Reports: no symptoms HEENT: Reports: no symptoms Cardiovascular: Reports: no symptoms Respiratory: Reports: no symptoms Gastrointestinal/Abdominal: Reports: no symptoms Genitourinary: Reports: no symptoms Neurologic/Psychiatric: Reports: no symptoms Allergies: Coded Allergies: No Known Allergies (Unverified , 01/09/14) Objective Last 24 Hour Vital Signs Date Time Temp Pulse Resp B/P (MAP) Pulse Ox O2 Delivery O2 Flow Rate FiO2 10/25/17 12:00 120/57 10/25/17 09:00 98/55 10/25/17 08:00 97.0 100 18 98/55 98 Room Air 97.0 10/25/17 06:19 124/77 10/25/17 06:18 124/77 10/25/17 04:00 97.7 104 18 124/77 95 Room Air 97.7 10/25/17 04:00 90 10/25/17 00:00 102 10/25/17 00:00 97.7 104 18 114/66 95 Room Air 97.7 10/25/17 00:00 114/66 10/24/17 21:31 131/73 10/24/17 21:00 131/73 10/24/17 20:00 90 10/24/17 20:00 97.0 95 20 131/73 97 Room Air 97.0 10/24/17 17:08 117/71 10/24/17 16:18 122 10/24/17 16:00 98.0 104 18 117/71 94 Room Air 98.0 10/24/17 14:37 130/77 10/24/17 14:12 130/77 Intake and Output 10/24/17 10/25/17 19:00 07:00 Intake Total 1281.030 ml 600 ml Output Total 1300 ml 625 ml Balance -18.970 ml -25 ml Intake Oral 1170 ml 600 ml IV Total 111.030 ml Output Urine Total 1300 ml 625 ml # Voids 4 Laboratory Tests 10/25/17 08:20: White Blood Count 12.0H, Red Blood Count 5.34, Hemoglobin 15.8, Hematocrit 49.1 , Mean Corpuscular Volume 92, Mean Corpuscular Hemoglobin 29.6, Mean Corpuscular Hemoglobin Concent 32.2, Red Cell Distribution Width 16.0H, Platelet Count 99L, Mean Platelet Volume 11.9H, Neutrophils (%) (Auto) , Lymphocytes (%) (Auto) , Monocytes (%) (Auto) , Eosinophils (%) (Auto) , Basophils (%) (Auto) , Differential Total Cells Counted 100, Neutrophils % ( Manual) 91H, Lymphocytes % (Manual) 4L, Monocytes % (Manual) 5, Eosinophils % ( Manual) 0, Basophils % (Manual) 0, Band Neutrophils 0, Platelet Estimate DecreasedL, Platelet Morphology Normal, Anisocytosis 1+, Sodium Level 136, Potassium Level 3.0L, Chloride Level 95L, Carbon Dioxide Level 35H, Anion Gap 7 , Blood Urea Nitrogen 52H, Creatinine 2.4H, Estimat Glomerular Filtration Rate , Glucose Level 151H, Uric Acid 9.7H, Calcium Level 8.6, Phosphorus Level 2.9, Magnesium Level 1.4L, Total Bilirubin 1.1H, Direct Bilirubin 0.6H, Aspartate Amino Transf (AST/SGOT) 31, Alanine Aminotransferase (ALT/SGPT) 57, Alkaline Phosphatase 83, Pro-B-Type Natriuretic Peptide 5941H, Total Protein 5.8L, Albumin 3.0L, Globulin 2.8, Albumin/Globulin Ratio 1.1 Height (Feet): 5 Height (Inches): 10.00 Weight (Pounds): 141 General Appearance: alert EENT: normal ENT inspection Neck: supple Cardiovascular: regular rhythm, no JVD, systolic murmur Respiratory/Chest: lungs clear Abdomen: non tender, soft, no mass Genitourinary/Rectal: normal genital exam MADELAINE TOBIAS Oct 25, 2017 13:29
[2017-10-25] MEDS: DOBUTamine 250mg/250ml Premix 250 ML IV SCH (13:45)
[2017-10-25 14:00] VITALS: BP 120/57
[2017-10-25] MEDS ORDERED: Tubing IV Secondary IV ONE (17:14)
[2017-10-25] MEDS ORDERED: Vitamin A&D Oint 2oz Tube TOPIC SCH (21:00)
--- NOTE | 2017-10-26 11:19 | General Progress Note ---
Assessment/Plan Assessment/Plan #. Leukocytosis, potentially secondary to reactive process, mild. --> Monitor for improvement. --> Has been improving steadily. #. Erythrocytosis, which is severe, this is new for the patient. --> Hemoglobin levels have been downtrending and improving. --> Iron 27, TIBC 145, Ferritin 186, B12 1227 --> JAK2 still pending. 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 --> HEP and HIV panel negative. #. Thrombocytopenia, potentially secondary to infectious process versus medications versus polycythemia vera or other disorder of the bone marrow. --> HIV and Hep panel negative. --> Ultrasound of the abdomen completed. --> Results: The liver, demonstrated part of the pancreas, gallbladder, aorta and IVC, both kidneys, spleen appear unremarkable. There is a 4 cm right renal cyst noted centrally. There is no biliary ductal dilatation identified. --> Doppler evaluation of the main portal vein shows patency. There is no ascites. No hydronephrosis seen. CBD is 5.8 mm. #. Elevated creatinine, potentially secondary to chronic kidney disease. Continue to closely monitor. #. Renal insufficiency. #. History of deep vein thrombosis. #. Polycythemia, again potentially secondary to primary versus secondary. #. Hypertension. Continue to closely monitor. No acute cardiopulmonary disease. Stable cardiomegaly. DC Planning Subjective Date patient seen: Oct 25, 2017 Constitutional: Denies: no symptoms, chills, diaphoresis, fever, malaise, weakness, other HEENT: Denies: no symptoms, eye pain, blurred vision, tearing, double vision, ear pain, ear discharge, nose pain, nose congestion, throat pain, throat swelling, mouth pain, mouth swelling, other Cardiovascular: Denies: no symptoms, chest pain, edema, irregular heart rate, lightheadedness, palpitations, syncope, other Respiratory: Denies: no symptoms, cough, orthopnea, shortness of breath, SOB with excertion, SOB at rest, sputum, stridor, wheezing, other Gastrointestinal/Abdominal: Denies: no symptoms, abdomen distended, abdominal pain, black stools, tarry stools, blood in stool, constipated, diarrhea, difficulty swallowing, nausea, poor appetite, poor fluid intake, rectal bleeding , vomiting, other Genitourinary: Denies: no symptoms, burning, discharge, frequency, flank pain, hematuria, incontinence, pain, urgency, other Neurologic/Psychiatric: Denies: no symptoms, anxiety, depressed, emotional problems, headache, numbness, paresthesia, pre-existing deficit, seizure, tingling, tremors, weakness, other Hematologic/Lymphatic: Reports: anemia Allergies: Coded Allergies: No Known Allergies (Unverified , 01/09/14) Subjective No acute events. No fever. Pending DC Objective Last 24 Hour Vital Signs Date Time Temp Pulse Resp B/P (MAP) Pulse Ox O2 Delivery O2 Flow Rate FiO2 10/25/17 14:00 120/57 10/25/17 13:45 120/57 10/25/17 12:00 98.2 94 18 120/57 96 Room Air 98.2 10/25/17 12:00 120/57 10/25/17 12:00 94 Intake and Output 10/25/17 10/26/17 19:00 07:00 Intake Total 350 ml Output Total 250 ml Balance 100 ml Intake Oral 250 ml IV Total 100 ml Output Urine Total 250 ml Height (Feet): 5 Height (Inches): 10.00 Weight (Pounds): 141 General Appearance: no apparent distress Respiratory/Chest: decreased breath sounds Abdomen: non tender, soft Edema: trace edema Mahendra Marinelli Oct 26, 2017 11:19
--- NOTE | 2017-10-28 09:14 | Discharge Summary ---
Discharge Summary Hospital Course Date of Admission Oct 18, 2017 at 22:34 Date of Discharge Oct 25, 2017 at 17:15 Admitting Diagnosis chf ZEESHAN Winslow is a 77 year old male who was admitted on Oct 18, 2017 at 22:34 for Congestive Heart Failure Hospital Course dc summary #[id number] Discharge Medications New Medications: Hydralazine HCl (Hydralazine HCl) 50 Mg Tablet 50 MG ORAL Q8HR for 30 Days, TAB Isosorbide Dinitrate* (Isordil*) 10 Mg Tablet 10 MG ORAL Q6HR for 30 Days, TAB Tamsulosin HCl (Flomax) 0.4 Mg Cap.er.24h 0.4 MG ORAL BID for 30 Days, CAP Continued Medications: Amlodipine Besylate (Norvasc) 5 Mg Tab 5 MG ORAL DAILY, #30 TAB Furosemide* (Lasix*) 40 Mg Tablet 40 MG ORAL DAILY, TAB Metoprolol Succinate* (Toprol Xl*) 100 Mg Tab.er.24h 100 MG ORAL DAILY, TAB 0 Refills Discharge Condition Upon Discharge: stable Discharge Disposition Patient was discharged to Home (01) Discharge Diagnoses: Discharge Instructions Discharge Instructions Special Instructions I have been assigned to complete a D/C Summary on this account. I was not involved in the patient management Carolyn Oliva NP ([place]te[place]) Oct 28, 2017 09:14
--- NOTE | 2017-10-28 23:00 | Discharge Summary 2 SIG ---
DATE OF ADMISSION: 10/18/2017 DATE OF DISCHARGE: 10/25/2017 REASON FOR ADMISSION: 77 years old male with history of asthma and hypertension, presented to the emergency room with shortness of breath and swelling of the lower extremities. Symptoms were getting progressively worse. The patient was on diuretic and initially was not clear if the patient was taking it on a regular basis. The patient with a history of DVT. He denied chest pain. No abdominal pain. No nausea. No vomiting. Workup in the emergency department revealed BUN -74, creatinine -3.8. Hemoglobin -21, platelets -103, no leukocytosis. Troponin first was initially elevated- 0.121. ProBNP - 29,985. Venous duplex bilateral lower extremities was negative. Initial chest x-ray revealed cardiomegaly and mild left basal atelectasis. In the emergency department, the patient was treated with diuretic and nebulizer and was admitted for further management. The patient admitted with diagnoses of acute on chronic left-sided heart failure , lower extremity edema, nonischemic cardiomyopathy, status post cardiac cath in 2016, hypertension, hyperlipidemia, chronic kidney disease stage 3-4, thrombocytopenia, and polycythemia. HOSPITAL COURSE: The patient admitted to telemetry floor. Cardiology, Nephrology, and Pulmonology consults were requested along with the Hematology consult. The patient was started on diuresis. Serial troponin were monitored, trending down. EKG revealed sinus rhythm with first-degree AV block, right bundle-branch block, and no acute ischemic changes. Elevated troponin possibly due to the renal failure, it was trending down. Steam Train Driver closely followed. Echocardiogram revealed ejection fraction of 10% to 15% with severe global left ventricular hypokinesis and septal akinesis. Moderately elevated left atrial pressure grade 2, moderate to severe tricuspid regurgitation, moderate mitral and aortic regurgitation, and right ventricular systolic pressure of 71 consistent with severe pulmonary hypertension. The patient was on intensive diuresis. Volumes and cardiorenal parameters were closely monitored. Lipid panel stable. TSH within normal limits. Last troponin -0.077. DVT and GI prophylaxes provided. According to linoleum floor installer, last stress test revealed no evidence of cardiac disease. The patient had dilated nonischemic cardiomyopathy with severe RV and LV systolic dysfunction. The patient was started on dobutamine drip in addition to Lasix which resulted in good diuresis with negative intake and output and significant weight loss. The patient was on medical management of systolic heart failure including Isordil, hydralazine, and Lasix and Aldactone. Steam Train Driver suggested to attempt MONO inhibitor since the patient tolerated Entresto in the past. No beta-cooper were added since the patient was wheezing and had history of COPD/asthma. Twisting Department End Finder clsoely followed. The patient was on low-dose steroids and was improving. Wheezing resolved. Supplemental oxygen provided as needed to keep pulse oximetry above 92%. Pulmonary toilet provided. Renal parameters and electrolytes were closely monitored. Wire Mill Operator closely followed. Nephrotoxins were avoided. Prior to discharge, BUN from 74 down to 52, creatinine from 3.8 down to 2.4. Renal ultrasound revealed nonobstructive stone in the right kidney and bilateral renal cysts. The patient noted to have elevated AST and ALT, initially AST- 112, ALT- 113, prior to discharge down to normal, likely due to the congested liver. Abdominal ultrasound revealed no acute process. Hepatitis panel was negative. HIV test negative. 24 hours urine showed protein -185 mg. DVT and GI prophylaxes provided. The patient was working with physical therapy to get out of bed as tolerated. The patient was off dobutamine drip. Pro BNP from initial 29,985 down to 5941.Follow up chest x-ray revealed cardiomegaly and no acute process. Independent Insurance Adjuster followed, polycythemia resolved, which was new for the patient. JAK2 was ordered, still pending. Decreased platelet count potentially could be related to polycythemia vera and at that time, JAK2 usually positive in most cases. Follow up with JAK2 results. Advised to continue with outpatient monitoring of hemoglobin, hematocrit, and platelets. Thrombocytopenia could be potentially secondary to infectious process versus medication versus polycythemia vera or other disorder of the bone marrow, if no ascites, no hydronephrosis. The patient apparently noncompliant with the medication regimen. Patient was stable for discharge. Reinforce compliance with medication regimen. FINAL DIAGNOSES: 1. Acute on chronic stage 3 congestive heart failure. 2. Dilated nonischemic cardiomyopathy, ejection fraction 10% to 15%. 3. Hypertension. 4. Hyperlipidemia. 5. Chronic kidney disease stage 3 to 4 6.Acute kidney injury on chronic kidney disease due to cardiorenal. 7. Severe RV/LV systolic dysfunction. 8. Severe pulmonary hypertension. 9. Right heart failure. 10. Peripheral edema, secondary to above and possible venous insufficiency. 11. History of DVT. 12. Transaminitis. 13. Thrombocytopenia. 14. Polycythemia. DISCHARGE MEDICATIONS: See medication reconciliation list. DISCHARGE INSTRUCTIONS: The patient discharged home. FOLLOWUP: Follow up with medical doctor in one week Martín Crowley M.D. I have been assigned to dictate discharge summary on this account and I was not involved in the patient's management. Carolyn ColónGl[facility] Hospitalara N.PJuan DR: WILLIAM JOB#: [id number] CC: NEIDA
== END 2017-10-25 17:15 | disposition home or self-care (01) | DRG 291 ==
LOC: EMR 21:59 → 2W 22:34 → EDBEDREQ 10-19 02:45 → 2E 10-19 06:55 → ICU 10-21 10:20 → 2E 10-21 12:45
DX: I13.0 Hypertensive heart and chronic kidney disease with heart failure and stage 1 through stage 4 chronic kidney disease, or unspecified chronic kidney disease (principal); I50.23 Acute on chronic systolic (congestive) heart failure; E46 Unspecified protein-calorie malnutrition; N18.4 Chronic kidney disease, stage 4 (severe); D69.6 Thrombocytopenia, unspecified; I27.20 Pulmonary hypertension, unspecified; N17.9 Acute kidney failure, unspecified; I42.0 Dilated cardiomyopathy; D75.1 Secondary polycythemia; I36.1 Nonrheumatic tricuspid (valve) insufficiency; I44.0 Atrioventricular block, first degree; I35.1 Nonrheumatic aortic (valve) insufficiency; I34.0 Nonrheumatic mitral (valve) insufficiency; J44.9 Chronic obstructive pulmonary disease, unspecified; Z91.14 Patient's other noncompliance with medication regimen; E78.5 Hyperlipidemia, unspecified; Z86.718 Personal history of other venous thrombosis and embolism
CPT/HCPCS: 36415; 71045; 76700; 76770; 80048; 80053; 80061; 80069; 81001; 81050; 81270; 82248; 82550; 82553; 82575; 82607; 82668; 82728; 82977; 83010; 83036; 83540; 83550; 83615; 83735; 83880; 84100; 84133; 84156; 84238; 84300; 84443; 84484; 84550; 85007; 85025; 85060; 86140; 86703; 86705; 86709; 86803; 87340; 89050; 93005; 93306; 93970; 99285; J8499

== ENCOUNTER 2018-01-01 | Inpatient (IN) | payer MEDICARE ==
[~2018-01-01] VITALS: Ht 177.8 cm; Wt 73.5 kg
[~2018-01-01] MED LIST changes: +APRESOLINE50 MG ORAL; +FLOMAX0.4 MG ORAL; +ISOSORBIDE DINI10 MG ORAL; +LASIX40 MG ORAL; +NYSTATIN100000 UN1 ORAL; +TOPROL XL100 MG ORAL
[2018-01-01] MEDS ORDERED: Solu-MEDROL 125mg Inj IVP ONE (00:30)
[2018-01-01] MEDS: Ipratropium 0.02% Inh Soln 2.5ml UD HHN SCH ×3 (00:33→01:24)
[2018-01-01] MEDS: Albuterol ud Inhalation HHN SCH ×3 (00:39→01:24)
[2018-01-01] MEDS ORDERED: VENTOLIN HFA18 GM INH (01:07)
[2018-01-01] MEDS ORDERED: COZAAR50 MG ORAL (01:07)
[2018-01-01] MEDS ORDERED: MEDROL DOSEPAK4 MG ORAL (01:07)
[2018-01-01] MEDS ORDERED: ZITHROMAX250 MG ORAL (01:07)
[2018-01-01 01:11] LABS: HEMATOCRIT 47.7 % (42.0-52.0); HEMOGLOBIN 15.1 G/DL (14.2-18.0); MEAN CORPUSCULAR VOLUME 91 FL (80-99); PLATELET COUNT 211 K/UL (150-450); RED BLOOD COUNT 5.25 M/UL (4.70-6.10); RED CELL DISTRIBUTION WIDTH 15.5 % (11.6-14.8)
[2018-01-01 01:16] LABS: LYMPHOCYTES % (AUTO) 7.4 % (20.0-45.0); MONOCYTES % (AUTO) 8.1 % (1.0-10.0); NEUTROPHILS % (AUTO) 83.5 % (45.0-75.0)
[2018-01-01 01:22] LABS: ANION GAP 14 mmol/L (5-15); BLOOD UREA NITROGEN 43 mg/dL (7-18); CALCIUM 9.3 MG/DL (8.5-10.1); CARBON DIOXIDE 24 MMOL/L (21-32); CHLORIDE 103 MMOL/L (98-107); CREATININE 3.7 MG/DL (0.55-1.30); POTASSIUM 3.5 MMOL/L (3.5-5.1); SODIUM 141 MMOL/L (136-145)
[2018-01-01 01:23] LABS: APPEARANCE,URINE SLIGHTLY CLOUDY; BILIRUBIN, URINE 1+ (NEGATIVE); GLUCOSE, URINE (UA) NEGATIVE (NEGATIVE); KETONES,URINE NEGATIVE (NEGATIVE); LEUKOCYTE ESTERASE ,URINE 1+ (NEGATIVE); NITRITE,URINE NEGATIVE (NEGATIVE); PH,URINE 5 (4.5-8.0); PROTEIN,URINE 4+ (NEGATIVE); UROBILINOGEN,URINE 4 MG/DL (0.0-1.0)
[2018-01-01 01:24] LABS: COLOR,URINE YELLOW
[2018-01-01 01:39] LABS: ALANINE AMINOTRANSFERASE 49 U/L (12-78); ALBUMIN 3.1 G/DL (3.4-5.0); ALBUMIN/GLOBULIN RATIO 0.8 (1.0-2.7); ALKALINE PHOSPHATASE 86 U/L (46-116); ASPARTATE AMINO TRANSFERASE 59 U/L (15-37); BILIRUBIN,TOTAL 2.7 MG/DL (0.2-1.0); CKMB 1.1 NG/ML (0.0-3.6); CREATINE KINASE 112 U/L (26-308)
[2018-01-01 01:40] LABS: BILIRUBIN,DIRECT 1.6 MG/DL (0.0-0.3)
--- NOTE | 2018-01-01 02:04 | Diagnostic Imaging Report ---
EXAM: CT Head Without Intravenous Contrast CLINICAL HISTORY: CVA TECHNIQUE: Axial computed tomography images of the head/brain without intravenous contrast. CTDI is 70 mGy and DLP is 1442 mGy-cm. One or more of the following dose reduction techniques were used: automated exposure control, adjustment of the mA and/or kV according to patient size, use of iterative reconstruction technique. COMPARISON: No relevant prior studies available. FINDINGS: Brain: Unremarkable. No hemorrhage. No significant white matter disease. No edema. Ventricles: Unremarkable. No ventriculomegaly. Bones/joints: Unremarkable. No acute fracture. Soft tissues: Unremarkable. Sinuses: Unremarkable as visualized. No acute sinusitis. Mastoid air cells: Unremarkable as visualized. No mastoid effusion. IMPRESSION: Normal head/brain CT.
[2018-01-01 02:05] VITALS: BP 148/82
[2018-01-01 02:09] LABS: INR 1.3 (0.9-1.1)
[2018-01-01] MEDS ORDERED: Alteplase 100mg Inj IVP ONE (03:00)
[2018-01-01] MEDS ORDERED: Alteplase 100mg Inj IV ONE ×2 (03:00)
--- NOTE | 2018-01-01 03:08 | Diagnostic Imaging Report ---
EXAM: XR Chest, 1 View CLINICAL HISTORY: SOB TECHNIQUE: Frontal view of the chest. COMPARISON: No relevant prior studies available. FINDINGS: Lungs: Unremarkable. No consolidation. Pleural space: Unremarkable. No pneumothorax. Heart: Unremarkable. No cardiomegaly. Mediastinum: Unremarkable. Bones/joints: Unremarkable. IMPRESSION: Normal chest x-ray.
[2018-01-01 03:19] VITALS: BP 151/93
--- NOTE | 2018-01-01 04:34 | Emergency Room Report ---
History of Present Illness General Chief Complaint: Dyspnea/Respdistress Source: Medical Record Present Illness HPI 77-year-old male presents ED for evaluation. Patient brought in by EMS complaining of shortness of breath. Per EMS patient wheezing. Given breathing treatments. Patient states he has history of asthma, CHF. States he was seen by his PMD yesterday and was prescribed a Z-Romeo. Patient states he did not start the medication yet. Denies fevers or chills. Denies chest pain. No other aggravating relieving factors. Denies any other associated symptoms Allergies: Coded Allergies: No Known Allergies (Unverified , 01/09/14) Patient History Past Medical History: HTN, CHF, asthma Past Surgical History: none Pertinent Family History: none Social History: Denies: smoking, alcohol use, drug use Immunizations: UTD Reviewed Nursing Documentation: PMH: Agreed; PSxH: Agreed Nursing Documentation-PMH Hx Cardiac Problems: Yes Hx Hypertension: Yes Hx Pacemaker: No Hx Asthma: Yes Hx COPD: No Hx Diabetes: No Hx Cancer: No Hx Gastrointestinal Problems: No Hx Dialysis: No Hx Neurological Problems: No Hx Cerebrovascular Accident: No Hx Seizures: No Review of Systems All Other Systems: negative except mentioned in HPI Physical Exam Vital Signs Date Time Temp Pulse Resp B/P (MAP) Pulse Ox O2 Delivery O2 Flow Rate FiO2 01/01/18 00:03 97.5 88 14 154/103 100 Room Air 97.5 Sp02 EP Interpretation: reviewed, normal General Appearance: no apparent distress, alert, GCS 15, non-toxic Head: normocephalic, atraumatic Eyes: bilateral eye normal inspection, bilateral eye PERRL ENT: hearing grossly normal, normal pharynx, no angioedema, normal voice Neck: full range of motion, supple/symm/no masses Respiratory: chest non-tender, normal breath sounds, speaking full sentences, wheezing Cardiovascular #1: regular rate, rhythm, no edema Cardiovascular #2: 2+ carotid (R), 2+ carotid (L), 2+ radial (R), 2+ radial (L) , 2+ dorsalis pedis (R), 2+ dorsalis pedis (L) Gastrointestinal: normal bowel sounds, non tender, soft, non-distended, no guarding, no rebound Rectal: deferred Genitourinary: normal inspection, no CVA tenderness Musculoskeletal: back normal, gait/station normal, normal range of motion, non- tender, swelling - 2+ pitting edema b/l LE Neurologic: alert, oriented x3, responsive, sensory intact, speech normal, motor weakness - LUE, other - ataxia LUE Psychiatric: judgement/insight normal, memory normal, mood/affect normal, no suicidal/homicidal ideation Reflexes: 3+ bicep (R), 3+ bicep (L), 3+ tricep (R), 3+ tricep (L), 3+ knee (R) , 3+ knee (L) Skin: normal color, no rash, warm/dry, well hydrated Lymphatic: no adenopathy Procedures Critical Care Time Critical Care Time i. I feel this is a highly complex case requiring extensive working including EKG/Rhythm strip, Xray/CT/US, Blood/urine lab work, repeat exams while in ED, and administration of strong opiates/narcotics for pain control, admission to hospital or close patient follow up. Total time: 30 min bedside evaluation and treatment excludes procedures (EKG). Reason for critical care: CVA Possible complications: hypotension, hypertension, [place], shock, arrhythmias, metabolic acidosis, end organ damage, respiratory failure. Interventions: Labs, EKG, chest x-ray, CT head, nebs, antibiotics. Consultation with neurology, TPA Course: Patient brought in for shortness of breath. History of CHF and asthma. Breathing treatments started. arrived shortly after and states that she also noticed some upper extremity weakness which started at home. Patient was found in the bathroom unable to get up. She maintained this weakness is new. Patient denies. Stroke scale of 2. CT head negative. Discussed with neurology at [facility] to give TPA. agreed to give TPA Consultations: nursing staff, EMS, family Performed by: Dr Hernández Tolerated well condition = serious j. because of unstable vital signs this patient had a condition that could potentially threaten life or limb. I feel this is a critical patient who required my full attention while patient was considered critical. Total Critical Care Time excluding procedures was greater than 35 minutes Medical Decision Making Diagnostic Impression: Primary Impression: CVA (cerebral vascular accident) Qualified Codes: I63.9 - Cerebral infarction, unspecified Additional Impressions: CHF exacerbation Qualified Codes: I50.9 - Heart failure, unspecified CKD (chronic kidney disease) Qualified Codes: N18.9 - Chronic kidney disease, unspecified ER Course Hospital Course 77-year-old male presents ED complaining of shortness of breath, leg swelling Differential diagnoses include: [place]/unstable angina, contusion, muscle strain, PTX, rib fracture Clinical course Patient placed on stretcher. on surveillance system monitor. After initial history and physical I ordered labs, EKG, chest x-ray, nebs labs reviewed- noted leukocytosis, hemoglobin/hematocrit stable, creatinine elevated, troponins 0.041, BNP markedly elevated, UA + bacteria Chest x-ray- pulmonary congestion EKG - NSR, no acute ischemic changes interpreted by me at bedside. States that she is concerned about some left upper extremity weakness which started tonight. States that the patient went to the bathroom and called for her because he could not get up. There is no slurred speech or facial droop. There is some minimal drift in the left upper extremity as well as some ataxia. Total stroke scale of 2 CT head negative. Discussed with stroke team at [facility]. They state that if symptoms are in fact new, that he is within the window and it is worth giving TPA. However given the stroke scale he is not a candidate for transfer Antibiotics given. Lasix given. I discussed with and she agreed that patient should receive the TPA. I discussed the risks and benefits TPA given Case discussed with Dr. Cullen (covering for Dr Cardenas and Dr Crowley) and he agreed to accept the patient to his service for further care and support I. I feel this is a highly complex case requiring extensive working including EKG/Rhythm strip, Xray/CT/US, Blood/urine lab work, repeat exams while in ED, and administration of strong opiates/narcotics for pain control, admission to hospital or close patient follow up. Diagnosis - CHF exacerbation, CKD, CVA admitted to telemetry in serious condition Labs Test 01/01/18 00:45 01/01/18 01:15 White Blood Count 18.0 K/UL (4.8-10.8) Red Blood Count 5.25 M/UL (4.70-6.10) Hemoglobin 15.1 G/DL (14.2-18.0) Hematocrit 47.7 % (42.0-52.0) Mean Corpuscular Volume 91 FL (80-99) Mean Corpuscular Hemoglobin 28.8 PG (27.0-31.0) Mean Corpuscular Hemoglobin Concent 31.7 G/DL (32.0-36.0) Red Cell Distribution Width 15.5 % (11.6-14.8) Platelet Count 211 K/UL (150-450) Mean Platelet Volume 9.3 FL (6.5-10.1) Neutrophils (%) (Auto) 83.5 % (45.0-75.0) Lymphocytes (%) (Auto) 7.4 % (20.0-45.0) Monocytes (%) (Auto) 8.1 % (1.0-10.0) Eosinophils (%) (Auto) 0.0 % (0.0-3.0) Basophils (%) (Auto) 1.0 % (0.0-2.0) Prothrombin Time 14.0 SEC (9.30-11.50) Prothromb Time International Ratio 1.3 (0.9-1.1) Activated Partial Thromboplast Time 22 SEC (23-33) Sodium Level 141 MMOL/L (136-145) Potassium Level 3.5 MMOL/L (3.5-5.1) Chloride Level 103 MMOL/L (98-107) Carbon Dioxide Level 24 MMOL/L (21-32) Anion Gap 14 mmol/L (5-15) Blood Urea Nitrogen 43 mg/dL (7-18) Creatinine 3.7 MG/DL (0.55-1.30) Estimat Glomerular Filtration Rate mL/min (>60) Glucose Level 142 MG/DL (74-106) Calcium Level 9.3 MG/DL (8.5-10.1) Total Bilirubin 2.7 MG/DL (0.2-1.0) Direct Bilirubin 1.6 MG/DL (0.0-0.3) Aspartate Amino Transf (AST/SGOT) 59 U/L (15-37) Alanine Aminotransferase (ALT/SGPT) 49 U/L (12-78) Alkaline Phosphatase 86 U/L (46-116) Total Creatine Kinase 112 U/L (26-308) Creatine Kinase MB 1.1 NG/ML (0.0-3.6) Creatine Kinase MB Relative Index 0.9 Troponin I 0.041 ng/mL (0.000-0.056) Pro-B-Type Natriuretic Peptide > 98803 pg/mL (0-125) Total Protein 7.2 G/DL (6.4-8.2) Albumin 3.1 G/DL (3.4-5.0) Globulin 4.1 g/dL Albumin/Globulin Ratio 0.8 (1.0-2.7) Urine Color Yellow Urine Appearance Slightly cloudy Urine pH 5 (4.5-8.0) Urine Specific [place] 1.020 (1.005-1.035) Urine Protein 4+ (NEGATIVE) Urine Glucose (UA) Negative (NEGATIVE) Urine Ketones Negative (NEGATIVE) Urine Occult Blood 2+ (NEGATIVE) Urine Nitrite Negative (NEGATIVE) Urine Bilirubin 1+ (NEGATIVE) Urine Ictotest Negative Urine Urobilinogen 4 MG/DL (0.0-1.0) Urine Leukocyte Esterase 1+ (NEGATIVE) Urine RBC 2-4 /HPF (0 - 0) Urine WBC 2-4 /HPF (0 - 0) Urine Squamous Epithelial Cells Occasional /LPF Urine Amorphous Sediment Few /LPF (NONE) Urine Bacteria Moderate /HPF (NONE) Urine Mucus Few /LPF (NONE/OCC) EKG Diagnostic Results Rate: normal Rhythm: NSR ST Segments: no acute changes ASA given to the pt in ED: No Rhythm Strip Diag. Results EP Interpretation: yes Rhythm: NSR, no PVC's, no ectopy Chest X-Ray Diagnostic Results Chest X-Ray Diagnostic Results : Chest X-Ray Ordered: Yes # of Views/Limited/Complete: 1 View Indication: Shortness of Breath EP Interpretation: Yes Interpretation: no pneumothorax, other - pulmonary congestion Impression: Other - chf Electronically Signed by: Electronically signed by Hector Hernández MD CT/MRI/US Diagnostic Results CT/MRI/US Diagnostic Results : Imaging Test Ordered: CT head Impression no acute process Last Vital Signs Date Time Temp Pulse Resp B/P (MAP) Pulse Ox O2 Delivery O2 Flow Rate FiO2 01/01/18 03:40 97.5 84 19 151/93 97 Room Air 97.5 84 Status: improved Disposition: ADMITTED INPATIENT Condition: Serious Referrals: HADLEY CARDENAS (PCP) Hector Hernández MD January 01, 2018 04:34
[2018-01-01 08:00] VITALS: BP 140/81
[2018-01-01 09:59] LABS: HEMATOCRIT 45.1 % (42.0-52.0); HEMOGLOBIN 14.6 G/DL (14.2-18.0); MEAN CORPUSCULAR VOLUME 90 FL (80-99); PLATELET COUNT 175 K/UL (150-450); RED BLOOD COUNT 4.99 M/UL (4.70-6.10); RED CELL DISTRIBUTION WIDTH 15.6 % (11.6-14.8); WHITE BLOOD COUNT 17.2 K/UL (4.8-10.8)
--- NOTE | 2018-01-01 10:38 | Consultation ---
Consult Note Consult Note asked to eval for renal failure- known to me from his previous admission HPI 77-year-old male presents ED for evaluation. Patient brought in by EMS complaining of shortness of breath. Per EMS patient wheezing. Given breathing treatments. Patient states he has history of asthma, CHF. States he was seen by his PMD yesterday and was prescribed a Z-Romeo. Patient states he did not start the medication yet. Denies fevers or chills. Denies chest pain. No other aggravating relieving factors. Denies any other associated symptoms Past Medical History: HTN, CHF, asthma Hx Cardiac Problems: Yes Hx Hypertension: Yes Hx Asthma: Yes interviewed - examined- has left UE weakness admitted with dx of CVA past labs / data: cardiomyopathy , Ejfx 15%, Cr 2.4 Assessment/Plan FIONA on CKD due to cardiorenal chronic systolic heart failure Right heart failuer Edema due to above and possible venous insuf Non-ischemic cardiomyopathy no cad by cath 2015 History of DVT pulmonary HTN h/o Thrombocytopenia HTN Proteinuria previous echo: Severe global left ventricular hypokinesis with septal thinning. Left ventricular ejection fraction estimated to be 10-15 %. Optimize cardiac status monitor renal parameters Avoid nephrotoxics per orders BHARATHI LOVE January 01, 2018 10:38
[2018-01-01] MEDS ORDERED: LORazepam 1mg tab ORAL PRN (11:30)
[2018-01-01] MEDS ORDERED: Morphine Sulfate 4mg/ml Inj IVP PRN (11:30)
--- NOTE | 2018-01-01 11:48 | History and Physical ---
History of Present Illness General Date patient seen: January 01, 2018 Time patient seen: 11:48 Reason for Hospitalization: Dyspnea/Respdistress/weakness Present Illness HPI This is a 77 y/o male with a PMH of severe systolic CHF (EF 15% recently at [facility] ), severe cardiomyopathy, renal failure, and asthma that presented to the ED last night for acute left-sided weakness and SOB. In the ED, CT brain was done, which was negative for acute pathology. Patient's last known well was 2100. Given patient's acute symptoms, patient was treated for a possible CVA with tPA at 0300. The ER physician [facility] and given NIH stroke scale was 2, patient was not transferred to a stroke center. Patient was also noted to have increasing SOB and wheezing with bilateral lowe rextremity edema. WBC was also 18 but UA and CXR were negative. Patient was given levaquin in the ED. Patient was also given IV lasix and IV methylprednisolone 125mg. Today, patient continues to report mild sob but better since yesterday. Patient also continues to report left sided weakness that has not improved. NIH stroke scale was recalculated this AM and it was 5. Denies chest pain, sob, n/v, abdominal pain, headache. at bedside. Allergies: Coded Allergies: No Known Allergies (Unverified , 01/09/14) Medication History Scheduled Albuterol Sulfate (Ventolin Hfa), 1 PUFF INH EVERY 6 HOURS, (Reported) Amlodipine Besylate (Norvasc), 5 MG ORAL DAILY Azithromycin* (Zithromax*), 250 MG ORAL DAILY, (Reported) Furosemide* (Lasix*), 20 MG ORAL DAILY Furosemide* (Lasix*), 40 MG ORAL DAILY, (Reported) Hydralazine HCl (Hydralazine HCl), 50 MG ORAL Q8HR Hydrochlorothiazide* (Hydrochlorothiazide*), 25 MG ORAL DAILY Isosorbide Dinitrate* (Isordil*), 10 MG ORAL Q6HR Losartan Potassium* (Cozaar*), 100 MG ORAL DAILY, (Reported) Methylprednisolone (Methylprednisolone*), 4 MG ORAL .as directed, (Reported) Metoprolol Succinate* (Toprol Xl*), 100 MG ORAL DAILY, (Reported) No Known Medications* (NKM - No Known Medications*), 0 ., (Reported) Nystatin* (Nystatin*), 5 ML ORAL THREE TIMES A DAY, (Reported) Prednisone (Prednisone), 40 MG PO DAILY Tamsulosin HCl (Flomax), 0.4 MG ORAL BID Patient History History Provided By: Patient, Family Member Healthcare decision maker Resuscitation status Full Code Advanced Directive on File Review of Systems All Other Systems: negative except mentioned in HPI Physical Exam General Appearance: alert, mild distress HEENT: normocephalic, atraumatic, PERRL Neck: non-tender, normal alignment, supple Respiratory/Chest: chest wall non-tender, expiratory wheezing, inspiratory wheezing Cardiovascular/Chest: normal peripheral pulses, normal rate, regular rhythm Abdomen: normal bowel sounds, non tender, soft Extremities: moderate edema Skin Exam: normal pigmentation, warm/dry Neurologic: alert, oriented x 3, other - no sensory deficit. 3/5 left upper extremity and lower extremity. +pronator drift, heel to puri on left lower extremity unable to perform Last 24 Hour Vital Signs Date Time Temp Pulse Resp B/P (MAP) Pulse Ox O2 Delivery O2 Flow Rate FiO2 01/01/18 08:00 97.7 86 18 140/81 97 Room Air 97.7 01/01/18 08:00 77 01/01/18 04:00 91 01/01/18 03:40 97.5 84 19 151/93 97 Room Air 97.5 84 01/01/18 03:19 84 19 151/93 97 Room Air 01/01/18 02:05 87 18 148/82 98 Room Air 01/01/18 00:28 88 14 100 Room Air 01/01/18 00:27 88 14 Room Air 01/01/18 00:05 88 14 Room Air 01/01/18 00:03 97.5 88 14 154/103 100 Room Air 97.5 Intake and Output 12/31/17 01/01/18 19:00 07:00 Output Total 430 ml Balance -430 ml Output Urine Total 430 ml # Voids 5 # Bowel Movements 1 Laboratory Tests Test 01/01/18 00:45 01/01/18 01:15 01/01/18 09:05 White Blood Count 18.0 K/UL (4.8-10.8) H 17.2 K/UL (4.8-10.8) H Red Blood Count 5.25 M/UL (4.70-6.10) 4.99 M/UL (4.70-6.10) Hemoglobin 15.1 G/DL (14.2-18.0) 14.6 G/DL (14.2-18.0) Hematocrit 47.7 % (42.0-52.0) 45.1 % (42.0-52.0) Mean Corpuscular Volume 91 FL (80-99) 90 FL (80-99) Mean Corpuscular Hemoglobin 28.8 PG (27.0-31.0) 29.2 PG (27.0-31.0) Mean Corpuscular Hemoglobin Concent 31.7 G/DL (32.0-36.0) L 32.3 G/DL (32.0-36.0) Red Cell Distribution Width 15.5 % (11.6-14.8) H 15.6 % (11.6-14.8) H Platelet Count 211 K/UL (150-450) 175 K/UL (150-450) Mean Platelet Volume 9.3 FL (6.5-10.1) 9.8 FL (6.5-10.1) Neutrophils (%) (Auto) 83.5 % (45.0-75.0) H % (45.0-75.0) Lymphocytes (%) (Auto) 7.4 % (20.0-45.0) L % (20.0-45.0) Monocytes (%) (Auto) 8.1 % (1.0-10.0) % (1.0-10.0) Eosinophils (%) (Auto) 0.0 % (0.0-3.0) % (0.0-3.0) Basophils (%) (Auto) 1.0 % (0.0-2.0) % (0.0-2.0) Prothrombin Time 14.0 SEC (9.30-11.50) H Prothromb Time International Ratio 1.3 (0.9-1.1) H Activated Partial Thromboplast Time 22 SEC (23-33) L Sodium Level 141 MMOL/L (136-145) Potassium Level 3.5 MMOL/L (3.5-5.1) Chloride Level 103 MMOL/L (98-107) Carbon Dioxide Level 24 MMOL/L (21-32) Anion Gap 14 mmol/L (5-15) Blood Urea Nitrogen 43 mg/dL (7-18) H Creatinine 3.7 MG/DL (0.55-1.30) H Estimat Glomerular Filtration Rate mL/min (>60) Glucose Level 142 MG/DL (74-106) H Calcium Level 9.3 MG/DL (8.5-10.1) Total Bilirubin 2.7 MG/DL (0.2-1.0) H Direct Bilirubin 1.6 MG/DL (0.0-0.3) H Aspartate Amino Transf (AST/SGOT) 59 U/L (15-37) H Alanine Aminotransferase (ALT/SGPT) 49 U/L (12-78) Alkaline Phosphatase 86 U/L (46-116) Total Creatine Kinase 112 U/L (26-308) Creatine Kinase MB 1.1 NG/ML (0.0-3.6) Creatine Kinase MB Relative Index 0.9 Troponin I 0.041 ng/mL (0.000-0.056) 0.030 ng/mL (0.000-0.056) Pro-B-Type Natriuretic Peptide > 60559 pg/mL (0-125) H > 79470 pg/mL (0-125) H Total Protein 7.2 G/DL (6.4-8.2) Albumin 3.1 G/DL (3.4-5.0) L Globulin 4.1 g/dL Albumin/Globulin Ratio 0.8 (1.0-2.7) L Urine Color Yellow Urine Appearance Slightly cloudy Urine pH 5 (4.5-8.0) Urine Specific [place] 1.020 (1.005-1.035) Urine Protein 4+ (NEGATIVE) H Urine Glucose (UA) Negative (NEGATIVE) Urine Ketones Negative (NEGATIVE) Urine Occult Blood 2+ (NEGATIVE) H Urine Nitrite Negative (NEGATIVE) Urine Bilirubin 1+ (NEGATIVE) H Urine Ictotest Negative Urine Urobilinogen 4 MG/DL (0.0-1.0) H Urine Leukocyte Esterase 1+ (NEGATIVE) H Urine RBC 2-4 /HPF (0 - 0) H Urine WBC 2-4 /HPF (0 - 0) Urine Squamous Epithelial Cells Occasional /LPF Urine Amorphous Sediment Few /LPF (NONE) H Urine Bacteria Moderate /HPF (NONE) H Urine Mucus Few /LPF (NONE/OCC) H Differential Total Cells Counted 100 Neutrophils % (Manual) 93 % (45-75) H Lymphocytes % (Manual) 5 % (20-45) L Monocytes % (Manual) 2 % (1-10) Eosinophils % (Manual) 0 % (0-3) Basophils % (Manual) 0 % (0-2) Band Neutrophils 0 % (0-8) Platelet Estimate Adequate Platelet Morphology Normal Anisocytosis 1+ Height (Feet): 5 Height (Inches): 10.00 Weight (Pounds): 166 Medications Current Medications Medications (Trade) Dose Ordered Sig/Denny Route PRN Reason Start Time Stop Time Status Last Admin Dose Admin Acetaminophen (Tylenol) 650 mg Q4H PRN ORAL Mild Pain (Pain Scale 1-3) 01/01/18 12:00 01/31/18 11:59 Acetaminophen (Tylenol) 650 mg Q4H PRN ORAL T>100.5 01/01/18 12:00 01/31/18 11:59 Albuterol/ Ipratropium (Albuterol/ Ipratropium) 3 ml Q6HRT HHN 01/01/18 13:00 01/06/18 12:59 Dextrose (Dextrose 50%) 25 ml STAT PRN IV Hypoglycemia 01/01/18 11:30 01/31/18 11:29 Dextrose (Dextrose 50%) 50 ml STAT PRN IV Hypoglycemia 01/01/18 11:30 01/31/18 11:29 Lorazepam (Ativan) 1 mg Q4H PRN ORAL For Anxiety 01/01/18 11:30 01/08/18 11:29 Morphine Sulfate (Morphine Sulfate) 4 mg Q6H PRN IVP Severe Pain (Pain Scale 7-10) 01/01/18 11:30 01/08/18 11:29 Ondansetron HCl (Zofran) 4 mg Q6H PRN IVP Nausea & Vomiting 01/01/18 11:30 01/31/18 11:29 Assessment/Plan Problem List: (1) CVA (cerebral vascular accident) ICD Codes: I63.9 - Cerebral infarction, unspecified SNOMED: 320347722 Qualifiers: Qualified Codes: I63.9 - Cerebral infarction, unspecified (2) CHF exacerbation ICD Codes: I50.9 - Heart failure, unspecified SNOMED: 50034136 Qualifiers: Qualified Codes: I50.9 - Heart failure, unspecified (3) FIONA (acute kidney injury) ICD Codes: N17.9 - Acute kidney failure, unspecified SNOMED: 60224788 (4) Asthma exacerbation ICD Codes: J45.901 - Unspecified asthma with (acute) exacerbation SNOMED: 060178694 (5) Cardiomyopathy ICD Codes: I42.9 - Cardiomyopathy SNOMED: 24246940 (6) Proteinuria ICD Codes: R80.9 - Proteinuria, unspecified SNOMED: 01080751 (7) Dyspnea ICD Codes: R06.00 - Dyspnea, unspecified SNOMED: 111506894 (8) HTN (hypertension) ICD Codes: I10 - HTN (hypertension) SNOMED: 05819049 (9) CKD (chronic kidney disease) ICD Codes: N18.9 - CKD (chronic kidney disease) SNOMED: 008176437 Qualifiers: Qualified Codes: N18.9 - Chronic kidney disease, unspecified Status: stable, progressing Assessment/Plan - Admit to [facility] #acute CVA - Neurology unavailable. - Transfer to [facility] stroke center/neurology eval - NIH stroke scale last night was 2 prior to TPA. Repeat NIH stroke scale is 5 this AM - s/p tPA given at 0300 on 01/01 - CT head on 01/01 at 0100 was negative. Repeat imaging with CT/MRI brain after 24 hours - continue permissive hypertension to systolic 160-180s x 24 hours - check MRI brain, MRA brain and neck without contrast STAT - check ECHO with doppler - check bilateral venous duplex - check lipid panel and A1c - ST/PT/OT eval - neurochecks q4hr - NPO except meds until ST eval #Acute asthma exacerbation - prednisone 40mg PO qd - duonebs ATC q6hr - ABGs #Sepsis - IV levaquin - CXR negative - f/u urine cx - trend CBC #Acute on chronic CHF - cardiology consulted - strict I&O - 1.5 L fluid restriction - lasix 40mg IV qd - permissive HTN with systolic 160-180s given acute CVA #FIONA vs. FIONA on CKD vs. cardiorenal syndrome - nephrology consulted - trend Cr - check urine lytes - renal ultrasound - avoid IVF given CHF exacerbation DVT ppx: SCD after venous duplex D/w transfer center about patient's case. Patient placed on transfer [facility] for neuro eval and s/p tPA administration. Discussed case in detail with attending, Dr. Quintero covering for Dr. Holliday. D/w nursing staff, cardiology, transfer center, patient, and family. Disposition: ARU vs. SNF vs. home with home health I spent a total of 100 minutes on this patient's case with greater than 50% spent on care and coordination of the patient. Diane Silva NP January 01, 2018 11:48
[2018-01-01 12:00] VITALS: BP 143/86
[2018-01-01] MEDS: HydrALAZINE 50mg tab ORAL SCH ×2 (13:53→22:00)
[2018-01-01] MEDS: Tamsulosin 0.4mg cap ORAL SCH ×2 (13:53→17:39)
--- NOTE | 2018-01-01 14:40 | Cardiac Electrophysiology PN ---
Subjective Subjective [id number] Objective Last 24 Hour Vital Signs Date Time Temp Pulse Resp B/P (MAP) Pulse Ox O2 Delivery O2 Flow Rate FiO2 01/01/18 13:53 89 143/86 01/01/18 13:53 143/86 01/01/18 12:00 97.5 85 18 143/86 96 Room Air 97.5 01/01/18 12:00 89 01/01/18 08:00 97.7 86 18 140/81 97 Room Air 97.7 01/01/18 08:00 77 01/01/18 04:00 91 01/01/18 03:40 97.5 84 19 151/93 97 Room Air 97.5 84 01/01/18 03:19 84 19 151/93 97 Room Air 01/01/18 02:05 87 18 148/82 98 Room Air 01/01/18 00:28 88 14 100 Room Air 01/01/18 00:27 88 14 Room Air 01/01/18 00:05 88 14 Room Air 01/01/18 00:03 97.5 88 14 154/103 100 Room Air 97.5 Intake and Output 12/31/17 01/01/18 19:00 07:00 Output Total 430 ml Balance -430 ml Output Urine Total 430 ml # Voids 5 # Bowel Movements 1 Laboratory Tests Test 01/01/18 00:45 01/01/18 01:15 01/01/18 09:05 01/01/18 11:24 White Blood Count 18.0 K/UL (4.8-10.8) H 17.2 K/UL (4.8-10.8) H Red Blood Count 5.25 M/UL (4.70-6.10) 4.99 M/UL (4.70-6.10) Hemoglobin 15.1 G/DL (14.2-18.0) 14.6 G/DL (14.2-18.0) Hematocrit 47.7 % (42.0-52.0) 45.1 % (42.0-52.0) Mean Corpuscular Volume 91 FL (80-99) 90 FL (80-99) Mean Corpuscular Hemoglobin 28.8 PG (27.0-31.0) 29.2 PG (27.0-31.0) Mean Corpuscular Hemoglobin Concent 31.7 G/DL (32.0-36.0) L 32.3 G/DL (32.0-36.0) Red Cell Distribution Width 15.5 % (11.6-14.8) H 15.6 % (11.6-14.8) H Platelet Count 211 K/UL (150-450) 175 K/UL (150-450) Mean Platelet Volume 9.3 FL (6.5-10.1) 9.8 FL (6.5-10.1) Neutrophils (%) (Auto) 83.5 % (45.0-75.0) H % (45.0-75.0) Lymphocytes (%) (Auto) 7.4 % (20.0-45.0) L % (20.0-45.0) Monocytes (%) (Auto) 8.1 % (1.0-10.0) % (1.0-10.0) Eosinophils (%) (Auto) 0.0 % (0.0-3.0) % (0.0-3.0) Basophils (%) (Auto) 1.0 % (0.0-2.0) % (0.0-2.0) Prothrombin Time 14.0 SEC (9.30-11.50) H Prothromb Time International Ratio 1.3 (0.9-1.1) H Activated Partial Thromboplast Time 22 SEC (23-33) L Sodium Level 141 MMOL/L (136-145) Potassium Level 3.5 MMOL/L (3.5-5.1) Chloride Level 103 MMOL/L (98-107) Carbon Dioxide Level 24 MMOL/L (21-32) Anion Gap 14 mmol/L (5-15) Blood Urea Nitrogen 43 mg/dL (7-18) H Creatinine 3.7 MG/DL (0.55-1.30) H Estimat Glomerular Filtration Rate mL/min (>60) Glucose Level 142 MG/DL (74-106) H Calcium Level 9.3 MG/DL (8.5-10.1) Total Bilirubin 2.7 MG/DL (0.2-1.0) H Direct Bilirubin 1.6 MG/DL (0.0-0.3) H Aspartate Amino Transf (AST/SGOT) 59 U/L (15-37) H Alanine Aminotransferase (ALT/SGPT) 49 U/L (12-78) Alkaline Phosphatase 86 U/L (46-116) Total Creatine Kinase 112 U/L (26-308) Creatine Kinase MB 1.1 NG/ML (0.0-3.6) Creatine Kinase MB Relative Index 0.9 Troponin I 0.041 ng/mL (0.000-0.056) 0.030 ng/mL (0.000-0.056) Pro-B-Type Natriuretic Peptide > 58378 pg/mL (0-125) H > 34377 pg/mL (0-125) H Total Protein 7.2 G/DL (6.4-8.2) Albumin 3.1 G/DL (3.4-5.0) L Globulin 4.1 g/dL Albumin/Globulin Ratio 0.8 (1.0-2.7) L Urine Color Yellow Urine Appearance Slightly cloudy Urine pH 5 (4.5-8.0) Urine Specific [place] 1.020 (1.005-1.035) Urine Protein 4+ (NEGATIVE) H Urine Glucose (UA) Negative (NEGATIVE) Urine Ketones Negative (NEGATIVE) Urine Occult Blood 2+ (NEGATIVE) H Urine Nitrite Negative (NEGATIVE) Urine Bilirubin 1+ (NEGATIVE) H Urine Ictotest Negative Urine Urobilinogen 4 MG/DL (0.0-1.0) H Urine Leukocyte Esterase 1+ (NEGATIVE) H Urine RBC 2-4 /HPF (0 - 0) H Urine WBC 2-4 /HPF (0 - 0) Urine Squamous Epithelial Cells Occasional /LPF Urine Amorphous Sediment Few /LPF (NONE) H Urine Bacteria Moderate /HPF (NONE) H Urine Mucus Few /LPF (NONE/OCC) H Differential Total Cells Counted 100 Neutrophils % (Manual) 93 % (45-75) H Lymphocytes % (Manual) 5 % (20-45) L Monocytes % (Manual) 2 % (1-10) Eosinophils % (Manual) 0 % (0-3) Basophils % (Manual) 0 % (0-2) Band Neutrophils 0 % (0-8) Platelet Estimate Adequate Platelet Morphology Normal Anisocytosis 1+ Arterial Blood pH 7.440 (7.350-7.450) Arterial Blood Partial Pressure CO2 34.1 mmHg (35.0-45.0) L Arterial Blood Partial Pressure O2 89.4 mmHg (75.0-100.0) Arterial Blood HCO3 23.0 mmol/L (22.0-26.0) Arterial Blood Oxygen Saturation 96.5 % (92.0-98.0) Arterial Blood Base Excess -0.3 [place] Test Positive Test 01/01/18 12:00 Magnesium Level 2.1 MG/DL (1.8-2.4) Troponin I 0.041 ng/mL (0.000-0.056) Thyroid Stimulating Hormone (TSH) 0.398 uiU/mL (0.358-3.740) Andre Howard MD January 01, 2018 14:40
--- NOTE | 2018-01-01 15:22 | Infectious Diseases Prog Note ---
Assessment/Plan Assessment/Plan Full consult dictated: A) 1) possible sepsis, leukocytosis, ? source 2) cva, chk 3) aspiration risk with cva hx 4) allergies - nkda P) 1) rocephin plus flagyl 2) check check cultures 3) check f/u chest x-ray and labs 4) thank you Subjective Allergies: Coded Allergies: No Known Allergies (Unverified , 01/09/14) Objective Vital Signs Last 24 Hour Vital Signs Date Time Temp Pulse Resp B/P (MAP) Pulse Ox O2 Delivery O2 Flow Rate FiO2 01/01/18 13:53 89 143/86 01/01/18 13:53 143/86 01/01/18 12:00 97.5 85 18 143/86 96 Room Air 97.5 01/01/18 12:00 89 01/01/18 08:00 97.7 86 18 140/81 97 Room Air 97.7 01/01/18 08:00 77 01/01/18 04:00 91 01/01/18 03:40 97.5 84 19 151/93 97 Room Air 97.5 84 01/01/18 03:19 84 19 151/93 97 Room Air 01/01/18 02:05 87 18 148/82 98 Room Air 01/01/18 00:28 88 14 100 Room Air 01/01/18 00:27 88 14 Room Air 01/01/18 00:05 88 14 Room Air 01/01/18 00:03 97.5 88 14 154/103 100 Room Air 97.5 Height (Feet): 5 Height (Inches): 10.00 Weight (Pounds): 166 Laboratory Tests Test 01/01/18 00:45 01/01/18 01:15 01/01/18 09:05 01/01/18 11:24 White Blood Count 18.0 K/UL (4.8-10.8) H 17.2 K/UL (4.8-10.8) H Red Blood Count 5.25 M/UL (4.70-6.10) 4.99 M/UL (4.70-6.10) Hemoglobin 15.1 G/DL (14.2-18.0) 14.6 G/DL (14.2-18.0) Hematocrit 47.7 % (42.0-52.0) 45.1 % (42.0-52.0) Mean Corpuscular Volume 91 FL (80-99) 90 FL (80-99) Mean Corpuscular Hemoglobin 28.8 PG (27.0-31.0) 29.2 PG (27.0-31.0) Mean Corpuscular Hemoglobin Concent 31.7 G/DL (32.0-36.0) L 32.3 G/DL (32.0-36.0) Red Cell Distribution Width 15.5 % (11.6-14.8) H 15.6 % (11.6-14.8) H Platelet Count 211 K/UL (150-450) 175 K/UL (150-450) Mean Platelet Volume 9.3 FL (6.5-10.1) 9.8 FL (6.5-10.1) Neutrophils (%) (Auto) 83.5 % (45.0-75.0) H % (45.0-75.0) Lymphocytes (%) (Auto) 7.4 % (20.0-45.0) L % (20.0-45.0) Monocytes (%) (Auto) 8.1 % (1.0-10.0) % (1.0-10.0) Eosinophils (%) (Auto) 0.0 % (0.0-3.0) % (0.0-3.0) Basophils (%) (Auto) 1.0 % (0.0-2.0) % (0.0-2.0) Prothrombin Time 14.0 SEC (9.30-11.50) H Prothromb Time International Ratio 1.3 (0.9-1.1) H Activated Partial Thromboplast Time 22 SEC (23-33) L Sodium Level 141 MMOL/L (136-145) Potassium Level 3.5 MMOL/L (3.5-5.1) Chloride Level 103 MMOL/L (98-107) Carbon Dioxide Level 24 MMOL/L (21-32) Anion Gap 14 mmol/L (5-15) Blood Urea Nitrogen 43 mg/dL (7-18) H Creatinine 3.7 MG/DL (0.55-1.30) H Estimat Glomerular Filtration Rate mL/min (>60) Glucose Level 142 MG/DL (74-106) H Calcium Level 9.3 MG/DL (8.5-10.1) Total Bilirubin 2.7 MG/DL (0.2-1.0) H Direct Bilirubin 1.6 MG/DL (0.0-0.3) H Aspartate Amino Transf (AST/SGOT) 59 U/L (15-37) H Alanine Aminotransferase (ALT/SGPT) 49 U/L (12-78) Alkaline Phosphatase 86 U/L (46-116) Total Creatine Kinase 112 U/L (26-308) Creatine Kinase MB 1.1 NG/ML (0.0-3.6) Creatine Kinase MB Relative Index 0.9 Troponin I 0.041 ng/mL (0.000-0.056) 0.030 ng/mL (0.000-0.056) Pro-B-Type Natriuretic Peptide > 44360 pg/mL (0-125) H > 59136 pg/mL (0-125) H Total Protein 7.2 G/DL (6.4-8.2) Albumin 3.1 G/DL (3.4-5.0) L Globulin 4.1 g/dL Albumin/Globulin Ratio 0.8 (1.0-2.7) L Urine Color Yellow Urine Appearance Slightly cloudy Urine pH 5 (4.5-8.0) Urine Specific [place] 1.020 (1.005-1.035) Urine Protein 4+ (NEGATIVE) H Urine Glucose (UA) Negative (NEGATIVE) Urine Ketones Negative (NEGATIVE) Urine Occult Blood 2+ (NEGATIVE) H Urine Nitrite Negative (NEGATIVE) Urine Bilirubin 1+ (NEGATIVE) H Urine Ictotest Negative Urine Urobilinogen 4 MG/DL (0.0-1.0) H Urine Leukocyte Esterase 1+ (NEGATIVE) H Urine RBC 2-4 /HPF (0 - 0) H Urine WBC 2-4 /HPF (0 - 0) Urine Squamous Epithelial Cells Occasional /LPF Urine Amorphous Sediment Few /LPF (NONE) H Urine Bacteria Moderate /HPF (NONE) H Urine Mucus Few /LPF (NONE/OCC) H Differential Total Cells Counted 100 Neutrophils % (Manual) 93 % (45-75) H Lymphocytes % (Manual) 5 % (20-45) L Monocytes % (Manual) 2 % (1-10) Eosinophils % (Manual) 0 % (0-3) Basophils % (Manual) 0 % (0-2) Band Neutrophils 0 % (0-8) Platelet Estimate Adequate Platelet Morphology Normal Anisocytosis 1+ Arterial Blood pH 7.440 (7.350-7.450) Arterial Blood Partial Pressure CO2 34.1 mmHg (35.0-45.0) L Arterial Blood Partial Pressure O2 89.4 mmHg (75.0-100.0) Arterial Blood HCO3 23.0 mmol/L (22.0-26.0) Arterial Blood Oxygen Saturation 96.5 % (92.0-98.0) Arterial Blood Base Excess -0.3 [place] Test Positive Test 01/01/18 12:00 Magnesium Level 2.1 MG/DL (1.8-2.4) Troponin I 0.041 ng/mL (0.000-0.056) Thyroid Stimulating Hormone (TSH) 0.398 uiU/mL (0.358-3.740) Current Medications Medications (Trade) Dose Ordered Sig/Denny Route PRN Reason Start Time Stop Time Status Last Admin Dose Admin Acetaminophen (Tylenol) 650 mg Q4H PRN ORAL Mild Pain (Pain Scale 1-3) 01/01/18 12:00 01/31/18 11:59 Acetaminophen (Tylenol) 650 mg Q4H PRN ORAL T>100.5 01/01/18 12:00 01/31/18 11:59 Albuterol/ Ipratropium (Albuterol/ Ipratropium) 3 ml Q6HRT HHN 01/01/18 13:00 01/06/18 12:59 Carvedilol (Coreg) 3.125 mg EVERY 12 HOURS ORAL 01/01/18 21:00 01/31/18 20:59 Dextrose (Dextrose 50%) 25 ml STAT PRN IV Hypoglycemia 01/01/18 11:30 01/31/18 11:29 Dextrose (Dextrose 50%) 50 ml STAT PRN IV Hypoglycemia 01/01/18 11:30 01/31/18 11:29 Dobutamine HCl 500 mg/Dextrose 250 ml @ 0 mls/hr Q24H IV 01/01/18 15:30 01/31/18 15:29 Furosemide (Lasix) 80 mg EVERY 12 HOURS IV 01/01/18 21:00 01/31/18 20:59 Hydralazine HCl (Apresoline) 50 mg Q8HR ORAL 01/01/18 14:00 01/31/18 13:59 01/01/18 13:53 Isosorbide Dinitrate (Isordil) 10 mg Q6HR ORAL 01/01/18 18:00 01/31/18 17:59 Levofloxacin 150 ml @ 100 mls/hr Q48H IVPB 01/02/18 09:00 01/09/18 08:59 Lorazepam (Ativan) 1 mg Q4H PRN ORAL For Anxiety 01/01/18 11:30 01/08/18 11:29 Morphine Sulfate (Morphine Sulfate) 4 mg Q6H PRN IVP Severe Pain (Pain Scale 7-10) 01/01/18 11:30 01/08/18 11:29 Ondansetron HCl (Zofran) 4 mg Q6H PRN IVP Nausea & Vomiting 01/01/18 11:30 01/31/18 11:29 Pantoprazole (Protonix) 40 mg EVERY 12 HOURS ORAL 01/01/18 21:00 01/31/18 20:59 Prednisone (predniSONE) 40 mg DAILY ORAL 01/02/18 09:00 02/01/18 08:59 Tamsulosin HCl (Flomax) 0.4 mg BID ORAL 01/01/18 13:15 01/31/18 13:14 01/01/18 13:53 MARIUM VIGIL January 01, 2018 15:22
[2018-01-01] MEDS ORDERED: DOBUTamine Inj 500 MG in D5W 210 ML IV SCH ×2 (15:30→18:00)
[2018-01-01 16:00] VITALS: BP 142/2
[2018-01-01] MEDS ORDERED: cefTRIAXone 1 GM in D5W 110 ML IVPB SCH (16:00)
--- NOTE | 2018-01-01 18:07 | Diagnostic Imaging Report ---
EXAM: MR Head Without Intravenous Contrast CLINICAL HISTORY: CVA TECHNIQUE: Magnetic resonance images of the head/brain without intravenous contrast in multiple planes. COMPARISON: No relevant prior studies available. FINDINGS: Acute small area of right parietal infarct. No other abnormal intra- or extra-axial collections or parenchymal lesions are seen. There are involutional changes with prominence of the sulci, basal cisterns and ventricles. Scattered white matter hyperintensities are present, likely from small vessel disease. The leary-white differentiation is preserved. No evidence of mass effect, midline shift, or edema. Small mucous retention cyst or polyp in the left maxillary sinus. IMPRESSION: 1. Acute small area of right parietal infarct. No hemorrhage. No mass effect or midline shift. 2. Involutional changes with small vessel disease. Critical Value Communications 01/01/18 18:16 Verify Receipt with Nurse Verified receipt with ERIN Ruiz in 2E on 01/01 18:15 (-07:00)
--- NOTE | 2018-01-01 18:13 | Diagnostic Imaging Report ---
EXAM: MR Angiography Head Without Intravenous Contrast CLINICAL HISTORY: CVA TECHNIQUE: Magnetic resonance angiography images of the head without intravenous contrast. COMPARISON: No relevant prior studies available. FINDINGS: Right internal carotid artery: No acute findings. Intracranial segment is patent with no significant stenosis. No aneurysm. Right anterior cerebral artery: Unremarkable. No occlusion or significant stenosis. No aneurysm. Right middle cerebral artery: Attenuated appearance of the distal right middle cerebral artery likely due to technical issues. Distal vessels are patent. No aneurysm. Right posterior cerebral artery: Unremarkable. No occlusion or significant stenosis. No aneurysm. Right vertebral artery: Unremarkable as visualized. Left internal carotid artery: No acute findings. Intracranial segment is patent with no significant stenosis. No aneurysm. Left anterior cerebral artery: Unremarkable. No occlusion or significant stenosis. No aneurysm. Left middle cerebral artery: Unremarkable. No occlusion or significant stenosis. No aneurysm. Left posterior cerebral artery: Unremarkable. No occlusion or significant stenosis. No aneurysm. Left vertebral artery: Unremarkable as visualized. Basilar artery: Unremarkable. No occlusion or significant stenosis. No aneurysm. IMPRESSION: Attenuated appearance of the distal right middle cerebral artery likely due to technical issues. Distal vessels are patent. Consider correlation with CTA of the head.
--- NOTE | 2018-01-01 18:18 | Diagnostic Imaging Report ---
EXAM: MR Angiography Neck Without Intravenous Contrast CLINICAL HISTORY: CVA TECHNIQUE: Magnetic resonance angiography images of the neck without intravenous contrast. COMPARISON: No relevant prior studies available. FINDINGS: Limitations: Limited due to motion artifact. Right common carotid artery: Unremarkable. No significant stenosis. No dissection or occlusion. Right internal carotid artery: There is short segment stenotic appearance of the proximal right ICA. Right external carotid artery: Unremarkable. No occlusion. Right vertebral artery: Unremarkable. No significant stenosis. No dissection or occlusion. Left common carotid artery: Unremarkable. No significant stenosis. No dissection or occlusion. Left internal carotid artery: Unremarkable. Extracranial segment is patent with no significant stenosis. No dissection or occlusion. Left external carotid artery: Unremarkable. No occlusion. Left vertebral artery: Unremarkable. No significant stenosis. No dissection or occlusion. Soft tissues: Unremarkable as visualized. Other findings: CAROTID STENOSIS REFERENCE USING NASCET CRITERIA: % ICA stenosis = (1 - narrowest ICA diameter/diameter of distal cervical ICA) x 100. Mild - <50% stenosis. Moderate - 50-69% stenosis. Severe - 70-94% stenosis. Near occlusion - 95-99% stenosis. Occluded - 100% stenosis. IMPRESSION: 1. Limited due to motion artifact. 2. There is short segment stenotic appearance of the proximal right ICA may be due to motion, cannot exclude high-grade stenosis. Consider correlation with ultrasound and/or CTA. Critical Value Communications 01/01/18 18:25 Verify Receipt with Nurse Verified receipt with ERIN Ruiz in 2E on 01/01 18:25 (-07:00)
[2018-01-01] MEDS: Albuterol/Ipratropium 3ml neb HHN SCH ×2 (19:00→19:50)
[2018-01-01 20:00] VITALS: BP 106/59
--- NOTE | 2018-01-01 21:46 | Consultation ---
DATE OF CONSULTATION: 01/01/2018 CARDIOLOGY CONSULTATION CONSULTING PHYSICIAN: Andre Howard M.D. REFERRING PHYSICIAN: Ajay Holliday M.D. REASON FOR CONSULTATION: Exacerbation of congestive heart failure and consideration for defibrillator implantation. HISTORY OF PRESENT ILLNESS: The patient is a very pleasant 77-year-old, gentleman with history of severe nonischemic dilated cardiomyopathy that was diagnosed initially at [facility] in 2016, ejection fraction was 15% at that time. Cardiac catheterization showed no evidence of coronary artery disease. The patient has been on heart failure therapy and has had multiple admissions including last one in October 2017 even then his ejection fraction was only 15%. The patient was on dobutamine at that time and then maximized on hydralazine and Isordil and kept the patient off MONO inhibitor for renal failure. The patient has been offered defibrillator implantation by other cardiologists, however, he was not sure about it. The patient presented to the emergency room again complaining of increasing shortness of breath and lower extremity edema. The patient is also noted to have renal failure with creatinine of 3.5. REVIEW OF SYSTEMS: Performed and was negative other than what was mentioned in the history of present illness. PAST MEDICAL HISTORY: 1. Hypertension. 2. 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 3. Chronic kidney disease. 4. Right heart failure. 5. History of DVT. 6. History of thrombocytopenia. 7. History of pulmonary hypertension. FAMILY HISTORY: Noncontributory. SOCIAL HISTORY: He lives at home. Does not smoke or drink alcohol. PHYSICAL EXAMINATION: VITAL SIGNS: Blood pressure of 142/86, pulse is 89, respirations 18, and he is afebrile. HEAD AND NECK: Shows positive JVD. LUNGS: Decreased breath sounds. CARDIOVASCULAR: Shows regular S1 and S2 with no gallop or murmur. ABDOMEN: Soft. EXTREMITIES: A 2+ pitting edema. LABORATORY AND DIAGNOSTIC DATA: His EKG shows sinus rhythm with left axis deviation, incomplete left bundle-branch block with QRS duration is 108 milliseconds. His lab show white count 17.2, hemoglobin 14.4, hematocrit 45.1, and platelet count 175. Troponin is negative x3. Sodium 141, potassium 3.5, BUN of , creatinine 3.7. Total bilirubin is 2.7 and direct bilirubin is 1.6. ASSESSMENT AND PLAN: 1. 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 The patient will be on maximized medical therapy. Change Lasix to 40 mg IV b.i.d., continue Coreg 3.125 mg b.i.d., hydralazine 50 mg every eight hours , Isordil 10 mg every 6 hours. In view of elevated bilirubin and renal failure, the patient may benefit from dobutamine at fixed dose at 5 mcg/kg/minute. Obviously the patient would benefit to proceed with defibrillator implantation. He does not meet criteria for cardiac resynchronization therapy as his QRS duration is less than 120 milliseconds. I discussed with the patient and the family with the RN at the bedside the risks, benefits, alternatives of ICD implantation and everyone would like to proceed. This will be proceeded after stabilization. 2. Renal failure. Creatinine increased from 2.5 to 3.7. Further evaluation by Dr. Dennis. Again start the patient on low-dose dobutamine. 3. Elevated liver function tests likely due to right heart failure and hepatic congestion. 4[place] [address], could be due to urinary tract infection. The patient started on Levaquin. Thank you very much, Dr. Holliday, for allowing me to participate in the care of this patient. Please do not hesitate to contact me for any questions regarding my evaluation. Andre Howard M.D. DR: Dung JOB#: [id number] CC:
[2018-01-02] VITALS: BP 115/64
--- NOTE | 2018-01-02 02:15 | Consultation ---
DATE OF CONSULTATION: 01/01/2018 INFECTIOUS DISEASE CONSULTATION CONSULTING PHYSICIAN: Ted Gonzalez M.D. ATTENDING PHYSICIAN: Ajay Holliday M.D. REFERRING PHYSICIAN: Ajay Holliday M.D. CHIEF COMPLAINT: The patient's chief complaint coming into the hospital is acute CVA and CHF. HISTORY OF PRESENT ILLNESS: This is is a 77-year-old male, who comes in to [facility] and was noted to have dyspnea and weakness and respiratory distress. The patient has been diagnosed with acute CVA and a plan for transfer to higher level of care is in progress. The patient also looks like he has asthma exacerbation and CHF. The patient was noted to have leukocytosis and possibility of sepsis. Infectious Disease consultation is requested. Case communicated with nurse practitioner and Dr. Holliday. The patient was placed on Rocephin and Flagyl pending cultures. The etiology of the possible sepsis and leukocytosis is unclear at this time. We will continue Rocephin and Flagyl pending workup. MAR was noted. Orders were noted. Notes were reviewed. Case discussed with RN, the patient, and the patient's family members. REVIEW OF SYSTEMS: CONSTITUTIONAL: The patient has no Parada. No central line. He has generalized weakness. He comes in with shortness of breath, respiratory insufficiency, wheezing, and weakness. No fever, chills, night sweats, or weight loss. HEAD AND NECK: No head pain or neck pain. No neck stiffness. CARDIAC: No chest pain or palpitations. GASTROINTESTINAL: No nausea, vomiting, or diarrhea. GENITOURINARY: No dysuria or frequency. PULMONARY: Mild shortness of breath and dyspnea. No significant secretion or hemoptysis. SKIN: No rash or itching. EXTREMITIES: No extremity pain. NEUROLOGIC: No seizures. He has weakness. PAST MEDICAL HISTORY: The patient has past medical history of the following. He has past medical history of hypertension, asthma, history of cardiac disease, history of CVA, weakness, low ejection fraction of 15%, history of COPD, history of acute on chronic CHF, history of acute kidney injury, elevated creatinine, chronic renal failure, anemia. No history of diabetes mentioned. MEDICATIONS: Upon reviewing the MAR, he is on the following medications. He was on Levaquin, I will stop that. I will put him on Rocephin and Flagyl. He is on prednisone. He was given Solu-Medrol. He is on pantoprazole, carvedilol, furosemide, isosorbide, hydralazine, tamsulosin, albuterol. He has acetaminophen, morphine, lorazepam. He was given methylprednisolone as an outpatient. He he had a Z-Romeo as an outpatient. Furosemide also, Isordil, abx, Flomax, albuterol, acetaminophen, morphine, Zofran, prednisone, pantoprazole, Coreg, Lasix. Outside medications noted and reconciliated. ALLERGIES: No known drug allergies. No antibiotic allergies. SOCIAL HISTORY: Negative for smoking, alcohol, or drug abuse. FAMILY HISTORY: Noncontributory. No mention of exposure to tuberculosis or cancer. PHYSICAL EXAMINATION: VITAL SIGNS: Temperature is 97.5 degrees, pulse rate 85, respiratory rate 18, blood pressure 142/86, saturation 96% on room air. GENERAL: Alert and responsive, in no acute distress, seems to be oriented. HEAD AND NECK: Oral exam, no thrush. Eye exam, no icterus. Neck is supple. Normocephalic. No JVD. Dentition is not very good. HEART: Regular. No gallops or murmur. No friction or rub. ABDOMEN: Soft. Positive bowel sounds. Nontender. LUNGS: Few bilateral rhonchi. No definite rales. Fairly clear bilaterally. SKIN: No rash. MUSCULOSKELETAL: No effusion. Legs are without cellulitis. PERIPHERAL VASCULAR: No cyanosis. He does have leg edema. GENITOURINARY: No Parada. No CVA tenderness. LINE SITES: Without phlebitis. NEUROLOGIC: Generalized weakness, responsive. LABORATORY AND DIAGNOSTIC DATA: Laboratory data is as follows. White count as high as 18, now 17.2, hemoglobin 14.6. Creatinine 3.7. Cultures are pending. UA had only 2 to 4 white blood cells. Chest x-ray was negative. ASSESSMENT AND PLAN: 1. The patient has possible sepsis and leukocytosis. The patient has high risk for aspiration pneumonia. It is unclear if he had respiratory infection, bronchitis. He was given steroids and Z-Romeo. Chest x-rays at this time is negative. UA is fairly benign. Unclear source of the possible sepsis or leukocytosis at this time. Continue Rocephin and Flagyl pending final workup. The patient may need further imaging. Source of leukocytosis is unclear. Continue Rocephin and Flagyl pending workup for now. 2. The patient has elevated creatinine with acute kidney injury, chronic renal failure, and anemia. 3. Acute cerebrovascular accident per history and exam. CT scan of the head was negative. 4. Chronic obstructive pulmonary disease and asthma exacerbation. 5. Shortness of breath. 6. Steroids. 7. Congestive heart failure. 8. Leg edema. 9. Hypertension. 10. Blood pressure treatment per primary consultants. 11. No known allergies. 12. Social history negative. 13. Family history noncontributory. 14. MAR was noted. 15. Case discussed with RN. 16. Case discussed and communicated with Diane Silva NP for Dr. Holliday. 17. Continue treatment per primary consultants. 18. Notes and records were noted. 19. Orders were entered and communicated. 20. Case was discussed the patient's family. 21. We will follow with you. Thank you for this consultation. Ted Gonzalez M.D. DR: Low JOB#: [id number] CC: NEIDA
[2018-01-02] MEDS ORDERED: LORazepam 1mg tab ORAL PRN (03:30)
[2018-01-02 04:00] VITALS: BP 106/50
[2018-01-02] MEDS ORDERED: Morphine Sulfate 4mg/ml Inj IVP PRN (05:30)
[2018-01-02 05:43] LABS: HEMATOCRIT 38.4 % (42.0-52.0); HEMOGLOBIN 12.7 G/DL (14.2-18.0); MEAN CORPUSCULAR VOLUME 89 FL (80-99); PLATELET COUNT 145 K/UL (150-450); RED BLOOD COUNT 4.29 M/UL (4.70-6.10); RED CELL DISTRIBUTION WIDTH 14.9 % (11.6-14.8); WHITE BLOOD COUNT 15.8 K/UL (4.8-10.8)
[2018-01-02] MEDS: HydrALAZINE 50mg tab ORAL SCH ×3 (05:51→22:08)
[2018-01-02 06:17] LABS: ANION GAP 12 mmol/L (5-15); BLOOD UREA NITROGEN 46 mg/dL (7-18); CALCIUM 8.6 MG/DL (8.5-10.1); CARBON DIOXIDE 26 MMOL/L (21-32); CHLORIDE 106 MMOL/L (98-107); CHOLESTEROL 118 MG/DL (< 200); CREATININE 3.3 MG/DL (0.55-1.30); HDL CHOLESTEROL 26 MG/DL (40-60); POTASSIUM 3.3 MMOL/L (3.5-5.1); SODIUM 144 MMOL/L (136-145); TRIGLYCERIDES 74 MG/DL (30-150)
[2018-01-02] MEDS: Albuterol/Ipratropium 3ml neb HHN SCH ×3 (07:01→19:06)
[2018-01-02 08:00] VITALS: BP 113/57
[2018-01-02] MEDS: Tamsulosin 0.4mg cap ORAL SCH ×2 (09:22→18:10)
[2018-01-02] MEDS ORDERED: Tubing IV Secondary IV ONE (09:42)
[2018-01-02] MEDS ORDERED: NS 500ML ONE (09:42)
[2018-01-02 12:00] VITALS: BP 113/51
[2018-01-02 14:35] LABS: ALANINE AMINOTRANSFERASE 32 U/L (12-78); ALBUMIN 2.4 G/DL (3.4-5.0); ALKALINE PHOSPHATASE 63 U/L (46-116); ASPARTATE AMINO TRANSFERASE 33 U/L (15-37); BILIRUBIN,DIRECT 0.5 MG/DL (0.0-0.3); BILIRUBIN,TOTAL 1.2 MG/DL (0.2-1.0)
--- NOTE | 2018-01-02 15:08 | Nephrology Progress Note ---
Assessment/Plan Problem List: (1) CKD (chronic kidney disease) (2) CHF (congestive heart failure) (3) Cardiomyopathy (4) Proteinuria Assessment chronic systolic heart failure Right heart failuer Edema due to above and possible venous insuf Non-ischemic cardiomyopathy no cad by cath 2016 History of DVT pulmonary HTN h/o Thrombocytopenia HTN Proteinuria previous echo: Severe global left ventricular hypokinesis with septal thinning. Left ventricular ejection fraction estimated to be 10-15 %. Plan Optimize cardiac status, on Dobutamin monitor renal parameters Avoid nephrotoxics per orders Subjective ROS Limited/Unobtainable: No Constitutional: Reports: malaise, weakness Objective Objective Last 24 Hour Vital Signs Date Time Temp Pulse Resp B/P (MAP) Pulse Ox O2 Delivery O2 Flow Rate FiO2 01/02/18 13:55 113/51 01/02/18 13:54 113/51 01/02/18 12:49 61 18 Room Air 21 01/02/18 12:39 57 18 Room Air 21 01/02/18 12:00 97.2 59 18 113/51 97 Room Air 97.2 01/02/18 12:00 61 01/02/18 09:23 59 113/57 01/02/18 08:00 97.2 59 20 113/57 95 Room Air 97.2 01/02/18 08:00 55 01/02/18 07:05 59 18 99 Room Air 21 01/02/18 06:55 54 18 96 Room Air 21 01/02/18 05:52 106/50 01/02/18 05:51 106/50 01/02/18 04:00 96.8 64 20 106/50 96 Room Air 96.8 01/02/18 04:00 67 01/02/18 02:00 Room Air 21 01/02/18 02:00 Room Air 21 01/02/18 00:00 97.2 66 20 115/64 96 Room Air 97.2 01/02/18 00:00 67 01/01/18 23:50 115/65 01/01/18 22:02 70 106/59 01/01/18 22:00 106/59 01/01/18 20:00 77 01/01/18 20:00 97.5 70 20 106/59 95 Room Air 97.5 01/01/18 19:52 76 18 98 Room Air 21 5/19/18 19:51 73 18 97 Room Air 21 01/01/18 19:50 73 16 Room Air 21 01/01/18 17:39 142/92 01/01/18 16:00 97.2 84 18 142/2 97 Room Air 97.2 01/01/18 16:00 84 Intake and Output 01/01/18 01/02/18 19:00 07:00 Intake Total 360 ml 360 ml Output Total 420 ml 610 ml Balance -60 ml -250 ml Intake Oral 360 ml 360 ml Output Urine Total 420 ml 610 ml Laboratory Tests 01/01/18 18:05: Troponin I 0.038 01/02/18 02:30: Urine Random Sodium 105 01/02/18 03:35: Troponin I 0.031, White Blood Count 15.8H, Red Blood Count 4.29L, Hemoglobin 12.7L, Hematocrit 38.4L, Mean Corpuscular Volume 89, Mean Corpuscular Hemoglobin 29.6, Mean Corpuscular Hemoglobin Concent 33.1, Red Cell Distribution Width 14.9H, Platelet Count 145L, Mean Platelet Volume 8.7, Neutrophils (%) (Auto) , Lymphocytes (%) (Auto) , Monocytes (%) (Auto) , Eosinophils (%) (Auto) , Basophils (%) (Auto) , Differential Total Cells Counted 100, Neutrophils % (Manual) 89H, Lymphocytes % (Manual) 5L, Monocytes % (Manual) 6, Eosinophils % (Manual) 0, Basophils % (Manual) 0, Band Neutrophils 0 , Platelet Estimate DecreasedL, Platelet Morphology Normal, Anisocytosis 1+, Sodium Level 144, Potassium Level 3.3L, Chloride Level 106, Carbon Dioxide Level 26, Anion Gap 12, Blood Urea Nitrogen 46H, Creatinine 3.3H, Estimat Glomerular Filtration Rate , Glucose Level 148H, Hemoglobin A1c 6.2H, Calcium Level 8.6, Magnesium Level 1.8, Total Bilirubin 1.2H, Direct Bilirubin 0.5H, Aspartate Amino Transf (AST/SGOT) 33, Alanine Aminotransferase (ALT/SGPT) 32, Alkaline Phosphatase 63, Pro-B-Type Natriuretic Peptide 92984F, Total Protein 5.5L, Albumin 2.4L, Triglycerides Level 74, Cholesterol Level 118, LDL Cholesterol 83, HDL Cholesterol 26L, Cholesterol/HDL Ratio 4.5H 01/02/18 14:00: Hepatitis A IgM Antibody [Pending], Hepatitis B Surface Antigen [Pending], Hepatitis B Core IgM Antibody [Pending], Hepatitis C Antibody [Pending] Height (Feet): 5 Height (Inches): 10.00 Weight (Pounds): 163 General Appearance: no apparent distress, lethargic Cardiovascular: normal rate Respiratory/Chest: decreased breath sounds Abdomen: distended BHARATHI LOVE January 02, 2018 15:08
[2018-01-02] MEDS ORDERED: Heparin 2000 units/Ns 1000ml INJ PRN (15:30)
[2018-01-02] MEDS ORDERED: Lidocaine 1% Plain 30 ml INJ PRN (15:30)
[2018-01-02 16:00] VITALS: BP 112/63
[2018-01-02] MEDS ORDERED: DOBUTamine Inj 500 MG in D5W 210 ML IV SCH (18:00)
[2018-01-02] MEDS: cefTRIAXone 1 GM in D5W 110 ML IVPB SCH (18:10)
[2018-01-02] MEDS: Dyna-Hex 2% Top Sol 2oz TOPIC SCH (19:52)
[2018-01-02 20:00] VITALS: BP 118/63
--- NOTE | 2018-01-02 23:49 | General Progress Note ---
Assessment/Plan Problem List: (1) CKD (chronic kidney disease) ICD Codes: N18.9 - CKD (chronic kidney disease) SNOMED: 451493678 Qualifiers: Qualified Codes: N18.9 - Chronic kidney disease, unspecified (2) HTN (hypertension) ICD Codes: I10 - HTN (hypertension) SNOMED: 51504575 (3) CHF (congestive heart failure) ICD Codes: I50.9 - CHF (congestive heart failure) SNOMED: 68781576 (4) Respiratory distress ICD Codes: R06.00 - Dyspnea, unspecified SNOMED: 588528579 (5) Dyspnea ICD Codes: R06.00 - Dyspnea, unspecified SNOMED: 721340805 (6) Asthma exacerbation ICD Codes: J45.901 - Unspecified asthma with (acute) exacerbation SNOMED: 001451538 (7) FIONA (acute kidney injury) ICD Codes: N17.9 - Acute kidney failure, unspecified SNOMED: 32918353 (8) CHF exacerbation ICD Codes: I50.9 - Heart failure, unspecified SNOMED: 70969382 Qualifiers: Qualified Codes: I50.9 - Heart failure, unspecified (9) CVA (cerebral vascular accident) ICD Codes: I63.9 - Cerebral infarction, unspecified SNOMED: 868679297 Qualifiers: Qualified Codes: I63.9 - Cerebral infarction, unspecified (10) Peripheral edema ICD Codes: R60.9 - Edema, unspecified SNOMED: 118671587 (11) Cardiomyopathy ICD Codes: I42.9 - Cardiomyopathy SNOMED: 07236101 (12) Malnutrition ICD Codes: E46 - Malnutrition SNOMED: 1528732 Status: stable Assessment/Plan #acute right parietal infarct - Neurology unavailable at this time - Patient placed on transfer list to [facility] stroke center/neurology eval - NIH stroke scale last night was 2 prior to TPA. Repeat NIH stroke scale is 5 - s/p tPA given at 0300 on 01/01 - CT head on 01/01 at 0100 was negative. - MRI brain showing acute small right parietal infarct with no hemorrhage, midline shift, or mass effect - continue permissive hypertension to systolic 160-180s x 24 hours - MRA brain and neck without contrast showing attenuated appearance of the distal right middle cerebral artery likely due to technical issues. Also with short segment stenotic appearance of the right proximal ICA, cannot exclude high -grade stenosis. --> consider CTA head and neck - ECHO with doppler showing 25-30% EF, pulmonary hypertension, and left ventricular hypokinesis - bilateral venous duplex negative - check lipid panel and A1c - ST/PT/OT eval - neurochecks q4hr - NPO until ST eval #Acute asthma exacerbation - prednisone 40mg PO qd - duonebs ATC q6hr - ABGs #Sepsis, unknown etiology - ID consulted, appreciate rec's - IV abx per ID - CXR negative - f/u urine cx - f/u blood cx - trend CBC #Acute on chronic systolic CHF / severe cardiomyopathy - cardiology consulted, appreciate rec's - strict I&O - 1.5 L fluid restriction - lasix 80mg IV qd - permissive HTN with systolic 160-180s given acute CVA - dobutamine gtt - EF 25-30% - cardiology recommending defibrillator placement. Discussed risks/benefits with family. Family agreeable #FIONA due to cardiorenal syndrome - nephrology consulted, appreciate rec's - trend Cr - check urine lytes - consider renal ultrasound - avoid IVF given CHF exacerbation DVT ppx: SCD. HSQ when okay with neurology D/w transfer center about patient's case. Patient placed on transfer list to [facility] for neuro eval and s/p tPA administration. Discussed case in detail with attending, Dr. Quintero covering for Dr. Holliday. D/w nursing staff, cardiology, nephrology, ID, transfer center, patient, and family. Disposition: ARU vs. SNF vs. home with home health I spent a total of 56 minutes on this patient's case with greater than 50% spent on care and coordination of the patient. Subjective Date patient seen: January 02, 2018 Time patient seen: 15:00 Allergies: Coded Allergies: No Known Allergies (Unverified , 01/09/14) Subjective - no acute events overnight - MRI brain showing acute small right parietal infarct - MRA brain and neck also noted - ECHO with 25-30% EF - venous duplex negative for DVT - seen by cards and ID - patient reports no improvement or worsening of symptoms. Family at bedside. d/ w family and patient regarding results of imaging and need for rehab. patient no agreeable for ARU or SNF at this time - per transfer center, insurance authorization pending Objective Last 24 Hour Vital Signs Date Time Temp Pulse Resp B/P (MAP) Pulse Ox O2 Delivery O2 Flow Rate FiO2 01/02/18 22:08 118/56 01/02/18 22:07 61 118/56 01/02/18 20:00 98.0 61 18 118/63 95 Room Air 98.0 01/02/18 20:00 65 01/02/18 19:15 66 18 99 Room Air 21 01/02/18 19:08 65 18 96 Room Air 21 01/02/18 18:10 112/63 01/02/18 16:00 97.1 71 22 112/63 97 Room Air 97.1 01/02/18 16:00 58 01/02/18 13:55 113/51 01/02/18 13:54 113/51 01/02/18 12:49 61 18 Room Air 21 01/02/18 12:39 57 18 Room Air 21 01/02/18 12:00 97.2 59 18 113/51 97 Room Air 97.2 01/02/18 12:00 61 01/02/18 09:23 59 113/57 01/02/18 08:00 97.2 59 20 113/57 95 Room Air 97.2 01/02/18 08:00 55 01/02/18 07:05 59 18 99 Room Air 21 01/02/18 06:55 54 18 96 Room Air 21 01/02/18 05:52 106/50 01/02/18 05:51 106/50 01/02/18 04:00 96.8 64 20 106/50 96 Room Air 96.8 01/02/18 04:00 67 01/02/18 02:00 Room Air 21 01/02/18 02:00 Room Air 21 01/02/18 00:00 97.2 66 20 115/64 96 Room Air 97.2 01/02/18 00:00 67 01/01/18 23:50 115/65 Intake and Output 01/01/18 01/02/18 19:00 07:00 Intake Total 360 ml 360 ml Output Total 420 ml 610 ml Balance -60 ml -250 ml Intake Oral 360 ml 360 ml Output Urine Total 420 ml 610 ml Laboratory Tests 01/02/18 02:30: Urine Random Sodium 105 01/02/18 03:35: White Blood Count 15.8H, Red Blood Count 4.29L, Hemoglobin 12.7L, Hematocrit 38.4L, Mean Corpuscular Volume 89, Mean Corpuscular Hemoglobin 29.6, Mean Corpuscular Hemoglobin Concent 33.1, Red Cell Distribution Width 14.9H, Platelet Count 145L, Mean Platelet Volume 8.7, Neutrophils (%) (Auto) , Lymphocytes (%) (Auto) , Monocytes (%) (Auto) , Eosinophils (%) (Auto) , Basophils (%) (Auto) , Differential Total Cells Counted 100, Neutrophils % ( Manual) 89H, Lymphocytes % (Manual) 5L, Monocytes % (Manual) 6, Eosinophils % ( Manual) 0, Basophils % (Manual) 0, Band Neutrophils 0, Platelet Estimate DecreasedL, Platelet Morphology Normal, Anisocytosis 1+, Sodium Level 144, Potassium Level 3.3L, Chloride Level 106, Carbon Dioxide Level 26, Anion Gap 12 , Blood Urea Nitrogen 46H, Creatinine 3.3H, Estimat Glomerular Filtration Rate , Glucose Level 148H, Hemoglobin A1c 6.2H, Calcium Level 8.6, Magnesium Level 1.8, Total Bilirubin 1.2H, Direct Bilirubin 0.5H, Aspartate Amino Transf (AST/ SGOT) 33, Alanine Aminotransferase (ALT/SGPT) 32, Alkaline Phosphatase 63, Troponin I 0.031, C-Reactive Protein, Quantitative 8.4H, Pro-B-Type Natriuretic Peptide 24656K, Total Protein 5.5L, Albumin 2.4L, Triglycerides Level 74, Cholesterol Level 118, LDL Cholesterol 83, HDL Cholesterol 26L, Cholesterol/HDL Ratio 4.5H 01/02/18 14:00: Hepatitis A IgM Antibody [Pending], Hepatitis B Surface Antigen [Pending], Hepatitis B Core IgM Antibody [Pending], Hepatitis C Antibody [Pending] Height (Feet): 5 Height (Inches): 10.00 Weight (Pounds): 163 General Appearance: no apparent distress, alert, other - mild slurred speech EENT: PERRL/EOMI, normal ENT inspection Neck: non-tender, normal alignment, supple Cardiovascular: normal peripheral pulses, normal rate, regular rhythm Respiratory/Chest: chest wall non-tender, lungs clear, normal breath sounds Abdomen: normal bowel sounds, non tender, soft Edema: moderate edema Neurologic: abnormal gait, alert, oriented x 3, other - no sensory deficits. decreased motor strength 3/5 to left upper and lower extremities. Skin: normal pigmentation, warm/dry Diane Silva NP January 02, 2018 23:49
[2018-01-03] VITALS: BP 115/62
[2018-01-03] MEDS: Albuterol/Ipratropium 3ml neb HHN SCH ×4 (01:00→19:24)
[2018-01-03 04:00] VITALS: BP 113/61
[2018-01-03] MEDS: HydrALAZINE 50mg tab ORAL SCH ×3 (06:08→21:01)
[2018-01-03 07:21] LABS: HEMATOCRIT 37.1 % (42.0-52.0); HEMOGLOBIN 12.2 G/DL (14.2-18.0); MEAN CORPUSCULAR VOLUME 89 FL (80-99); PLATELET COUNT 133 K/UL (150-450); RED BLOOD COUNT 4.18 M/UL (4.70-6.10); WHITE BLOOD COUNT 13.9 K/UL (4.8-10.8)
[2018-01-03 07:30] LABS: ALANINE AMINOTRANSFERASE 28 U/L (12-78); ALBUMIN 2.4 G/DL (3.4-5.0); ALBUMIN/GLOBULIN RATIO 0.8 (1.0-2.7); ALKALINE PHOSPHATASE 60 U/L (46-116); ANION GAP 9 mmol/L (5-15); ASPARTATE AMINO TRANSFERASE 28 U/L (15-37); BLOOD UREA NITROGEN 46 mg/dL (7-18); CALCIUM 8.3 MG/DL (8.5-10.1); CARBON DIOXIDE 31 MMOL/L (21-32); CHLORIDE 104 MMOL/L (98-107); CREATININE 3.2 MG/DL (0.55-1.30); PHOSPHORUS 4.1 MG/DL (2.5-4.9); POTASSIUM 2.9 MMOL/L (3.5-5.1); SODIUM 144 MMOL/L (136-145)
[2018-01-03 08:00] VITALS: BP 128/53
[2018-01-03] MEDS: Tamsulosin 0.4mg cap ORAL SCH ×2 (08:44→17:28)
--- NOTE | 2018-01-03 10:37 | Consultation ---
Consult Note Consult Note NEUROLOGY CONSULTATION: Full note dictated #[id number] 77 y/o, RH, BM with PH of HTN, CKD, a cardiomyopathy, and severe CHF with EF of 15% and asthma. On 01/01/18 he suddenly developed left sided weakness. He [place] [facility] and was diagnosed with a right brain stroke. The CT of the brain was unremarkable. He was treated with tPA. He did have an MRI of the brain later which revealed a right brain infarct. At this time he is significantly weak on the left side, and neglects his left side. ON EXAM: Disoriented to exact date. Mild problems with recent memory. Could only remember Trump and Obama. Mild dysarthria. Left VF cut. Left VII central. Left hemiplegia with minimal G 2/5 hip rotation. Left hemisensory deficit and agraphesthesia. Loss of DTRs in the left UE with brisk left knee jerk Extensor plantar on the left. IMPRESSION: Clinically a sizable right MCA stroke s/p tPA. E[place] [facility] [place] EF 25-30% and no definite clot. REC: PT/OT/SLT Repeat brain CT Carotid duplex W/U for other treatable causes of stroke. Arun Lara M.D., M.S.P.Armando. ARUN LARA January 03, 2018 10:37
--- NOTE | 2018-01-03 11:03 | Nephrology Progress Note ---
Assessment/Plan Problem List: (1) CKD (chronic kidney disease) (2) CHF (congestive heart failure) (3) Cardiomyopathy (4) Proteinuria Assessment chronic systolic heart failure Right heart failuer Edema due to above and possible venous insuf Non-ischemic cardiomyopathy no cad by cath 2016 History of DVT pulmonary HTN h/o Thrombocytopenia HTN Proteinuria previous echo: Severe global left ventricular hypokinesis with septal thinning. Left ventricular ejection fraction estimated to be 10-15 %. Plan mag and K supplement Optimize cardiac status, on Dobutamin monitor renal parameters Avoid nephrotoxics per orders Subjective ROS Limited/Unobtainable: No Constitutional: Reports: malaise, weakness Objective Objective Last 24 Hour Vital Signs Date Time Temp Pulse Resp B/P (MAP) Pulse Ox O2 Delivery O2 Flow Rate FiO2 01/03/18 08:45 76 128/53 01/03/18 08:03 76 16 100 Room Air 21 01/03/18 08:00 72 01/03/18 08:00 97.6 76 21 128/53 100 Room Air 97.6 01/03/18 07:53 75 16 96 Room Air 21 01/03/18 06:08 113/61 01/03/18 06:08 113/61 01/03/18 04:00 67 01/03/18 04:00 98.2 60 20 113/61 95 Room Air 98.2 01/03/18 01:07 63 18 100 Room Air 21 01/03/18 01:00 62 18 97 Room Air 21 01/03/18 00:11 118/56 01/03/18 00:00 65 01/03/18 00:00 97.7 65 18 115/62 95 Room Air 97.7 01/02/18 22:08 118/56 01/02/18 22:07 61 118/56 01/02/18 20:00 98.0 61 18 118/63 95 Room Air 98.0 01/02/18 20:00 65 01/02/18 19:15 66 18 99 Room Air 21 01/02/18 19:08 65 18 96 Room Air 21 01/02/18 18:10 112/63 01/02/18 16:00 97.1 71 22 112/63 97 Room Air 97.1 01/02/18 16:00 58 01/02/18 13:55 113/51 01/02/18 13:54 113/51 01/02/18 12:49 61 18 Room Air 21 01/02/18 12:39 57 18 Room Air 21 01/02/18 12:00 97.2 59 18 113/51 97 Room Air 97.2 01/02/18 12:00 61 Intake and Output 01/02/18 01/03/18 19:00 07:00 Intake Total 610 ml 299.1 ml Output Total 720 ml 2350 ml Balance -110 ml -2050.9 ml Intake Oral 400 ml 120 ml IV Total 210 ml 179.1 ml Output Urine Total 720 ml 2350 ml Laboratory Tests 01/02/18 14:00: Hepatitis A IgM Antibody [Pending], Hepatitis B Surface Antigen [Pending], Hepatitis B Core IgM Antibody [Pending], Hepatitis C Antibody [Pending] 01/03/18 04:30: White Blood Count 13.9H, Red Blood Count 4.18L, Hemoglobin 12.2L, Hematocrit 37.1L, Mean Corpuscular Volume 89, Mean Corpuscular Hemoglobin 29.3, Mean Corpuscular Hemoglobin Concent 32.9, Red Cell Distribution Width 15.0H, Platelet Count 133L, Mean Platelet Volume 9.2, Neutrophils (%) (Auto) , Lymphocytes (%) (Auto) , Monocytes (%) (Auto) , Eosinophils (%) (Auto) , Basophils (%) (Auto) , Differential Total Cells Counted 100, Neutrophils % ( Manual) 90H, Lymphocytes % (Manual) 5L, Monocytes % (Manual) 5, Eosinophils % ( Manual) 0, Basophils % (Manual) 0, Band Neutrophils 0, Platelet Estimate DecreasedL, Platelet Morphology Normal, Red Blood Cell Morphology Normal, Sodium Level 144, Potassium Level 2.9L, Chloride Level 104, Carbon Dioxide Level 31, Anion Gap 9, Blood Urea Nitrogen 46H, Creatinine 3.2H, Estimat Glomerular Filtration Rate , Glucose Level 125H, Uric Acid 12.7H, Calcium Level 8.3L, Phosphorus Level 4.1, Magnesium Level 1.6L, Total Bilirubin 1.0, Aspartate Amino Transf (AST/SGOT) 28, Alanine Aminotransferase (ALT/SGPT) 28, Alkaline Phosphatase 60, Pro-B-Type Natriuretic Peptide 58511P, Total Protein 5.6L, Albumin 2.4L, Globulin 3.2, Albumin/Globulin Ratio 0.8L 01/03/18 06:00: Troponin I 0.029 01/03/18 06:20: Rapid Plasma Reagin [Pending] Height (Feet): 5 Height (Inches): 10.00 Weight (Pounds): 162 General Appearance: no apparent distress Cardiovascular: tachycardia Respiratory/Chest: accessory muscle use Abdomen: soft Objective no other change BHARATHI LOVE January 03, 2018 11:02
[2018-01-03 12:00] VITALS: BP 121/71
--- NOTE | 2018-01-03 13:12 | Infectious Diseases Prog Note ---
Assessment/Plan Assessment/Plan ASSESSMENT AND PLAN: 1. leukocytosis, ? sepsis, ? reactive to cva, valeria, aspiration risk, abdomen benign - blood cultures negative, initial chest x-ray negative, urine culture negative, leukocytosis improved - rocephin plus flagyl for now - check f/u chest x-ray - f/u on labs - d/w Diane Gresham NP 2. The patient has elevated creatinine with acute kidney injury, chronic renal failure, and anemia. 3. Acute cerebrovascular accident per history and exam + MRI noted - treatment per primary team and neurology, tpa given 4. Chronic obstructive pulmonary disease and asthma exacerbation. 5. Shortness of breath. 6. Steroids. 7. Congestive heart failure. 8. Leg edema. 9. Hypertension. 10. Blood pressure treatment per primary consultants. 11. No known allergies. 12. Social history negative. 13. Family history noncontributory. 14. MAR was noted. 15. Case discussed with RN. 16. Case discussed and communicated with Diane Silva NP for Dr. Holliday. 17. Continue treatment per primary consultants. 18. Notes and records were noted. 19. Orders were entered and communicated. 20. Case was discussed the patient's family. 21. We will follow with you. Subjective Constitutional: Reports: fatigue; Denies: fever HEENT: Denies: congestion Respiratory: Denies: shortness of breath Cardiovascular: Denies: chest pain, palpitations Gastrointestinal/Abdominal: Denies: nausea, vomiting, diarrhea Genitourinary: Reports: other - + reagan Neurologic: Denies: headache Psychiatric: Denies: depression Skin: Denies: rash Hematologic: Denies: bleeding Musculoskeletal: Denies: pain Allergies: Coded Allergies: No Known Allergies (Unverified , 01/09/14) Objective Vital Signs Last 24 Hour Vital Signs Date Time Temp Pulse Resp B/P (MAP) Pulse Ox O2 Delivery O2 Flow Rate FiO2 01/03/18 11:18 121/71 01/03/18 08:45 76 128/53 01/03/18 08:03 76 16 100 Room Air 21 01/03/18 08:00 72 01/03/18 08:00 97.6 76 21 128/53 100 Room Air 97.6 01/03/18 07:53 75 16 96 Room Air 21 01/03/18 06:08 113/61 01/03/18 06:08 113/61 01/03/18 04:00 67 01/03/18 04:00 98.2 60 20 113/61 95 Room Air 98.2 01/03/18 01:07 63 18 100 Room Air 21 01/03/18 01:00 62 18 97 Room Air 21 01/03/18 00:11 118/56 01/03/18 00:00 65 01/03/18 00:00 97.7 65 18 115/62 95 Room Air 97.7 01/02/18 22:08 118/56 01/02/18 22:07 61 118/56 01/02/18 20:00 98.0 61 18 118/63 95 Room Air 98.0 01/02/18 20:00 65 01/02/18 19:15 66 18 99 Room Air 21 01/02/18 19:08 65 18 96 Room Air 21 01/02/18 18:10 112/63 01/02/18 16:00 97.1 71 22 112/63 97 Room Air 97.1 01/02/18 16:00 58 01/02/18 13:55 113/51 01/02/18 13:54 113/51 Height (Feet): 5 Height (Inches): 10.00 Weight (Pounds): 162 General Appearance: no acute distress HEENT: normocephalic, atraumatic, anicteric, mucous membranes moist Respiratory/Chest: lungs clear, normal breath sounds, no respiratory distress, no accessory muscle use Cardiovascular: normal rate, regular rhythm, no gallop/murmur, no JVD Abdomen: normal bowel sounds, soft, non tender, no organomegaly, non distended Genitourinary: other - + reagan - urine clear Extremities: no cyanosis Skin: no rash 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 Acute small area of right parietal infarct. No hemorrhage. No mass effect or midline shift. 2. Involutional changes with small vessel disease. Chest -x-ray - 01/01 - no consolidation Microbiology Date/Time Source Procedure Growth Status 01/01/18 09:05 Blood Blood Culture - Preliminary NO GROWTH AFTER 24 HOURS Resulted 01/01/18 08:50 Blood Blood Culture - Preliminary NO GROWTH AFTER 24 HOURS Resulted 01/01/18 01:15 Urine,Clean Catch Urine Culture - Preliminary NO GROWTH AFTER 24 HOURS Resulted Laboratory Tests Test 01/02/18 14:00 01/03/18 04:30 01/03/18 06:00 01/03/18 06:20 Hepatitis A IgM Antibody Pending Hepatitis B Surface Antigen Pending Hepatitis B Core IgM Antibody Pending Hepatitis C Antibody Pending White Blood Count 13.9 K/UL (4.8-10.8) H Red Blood Count 4.18 M/UL (4.70-6.10) L Hemoglobin 12.2 G/DL (14.2-18.0) L Hematocrit 37.1 % (42.0-52.0) L Mean Corpuscular Volume 89 FL (80-99) Mean Corpuscular Hemoglobin 29.3 PG (27.0-31.0) Mean Corpuscular Hemoglobin Concent 32.9 G/DL (32.0-36.0) Red Cell Distribution Width 15.0 % (11.6-14.8) H Platelet Count 133 K/UL (150-450) L Mean Platelet Volume 9.2 FL (6.5-10.1) Neutrophils (%) (Auto) % (45.0-75.0) Lymphocytes (%) (Auto) % (20.0-45.0) Monocytes (%) (Auto) % (1.0-10.0) Eosinophils (%) (Auto) % (0.0-3.0) Basophils (%) (Auto) % (0.0-2.0) Differential Total Cells Counted 100 Neutrophils % (Manual) 90 % (45-75) H Lymphocytes % (Manual) 5 % (20-45) L Monocytes % (Manual) 5 % (1-10) Eosinophils % (Manual) 0 % (0-3) Basophils % (Manual) 0 % (0-2) Band Neutrophils 0 % (0-8) Platelet Estimate Decreased L Platelet Morphology Normal Red Blood Cell Morphology Normal Sodium Level 144 MMOL/L (136-145) Potassium Level 2.9 MMOL/L (3.5-5.1) L Chloride Level 104 MMOL/L (98-107) Carbon Dioxide Level 31 MMOL/L (21-32) Anion Gap 9 mmol/L (5-15) Blood Urea Nitrogen 46 mg/dL (7-18) H Creatinine 3.2 MG/DL (0.55-1.30) H Estimat Glomerular Filtration Rate mL/min (>60) Glucose Level 125 MG/DL (74-106) H Uric Acid 12.7 MG/DL (2.6-7.2) H Calcium Level 8.3 MG/DL (8.5-10.1) L Phosphorus Level 4.1 MG/DL (2.5-4.9) Magnesium Level 1.6 MG/DL (1.8-2.4) L Total Bilirubin 1.0 MG/DL (0.2-1.0) Aspartate Amino Transf (AST/SGOT) 28 U/L (15-37) Alanine Aminotransferase (ALT/SGPT) 28 U/L (12-78) Alkaline Phosphatase 60 U/L (46-116) Pro-B-Type Natriuretic Peptide 89846 pg/mL (0-125) H Total Protein 5.6 G/DL (6.4-8.2) L Albumin 2.4 G/DL (3.4-5.0) L Globulin 3.2 g/dL Albumin/Globulin Ratio 0.8 (1.0-2.7) L Troponin I 0.029 ng/mL (0.000-0.056) Rapid Plasma Reagin Pending Current Medications Medications (Trade) Dose Ordered Sig/Denny Route PRN Reason Start Time Stop Time Status Last Admin Dose Admin Acetaminophen (Tylenol) 650 mg Q4H PRN ORAL Mild Pain (Pain Scale 1-3) 01/02/18 04:00 01/31/18 11:59 Acetaminophen (Tylenol) 650 mg Q4H PRN ORAL T>100.5 01/02/18 04:00 01/31/18 11:59 Albuterol/ Ipratropium (Albuterol/ Ipratropium) 3 ml Q6HRT HHN 01/02/18 07:00 01/06/18 12:59 01/03/18 07:52 Allopurinol (Allopurinol) 300 mg DAILY ORAL 01/04/18 09:00 02/03/18 08:59 Carvedilol (Coreg) 3.125 mg EVERY 12 HOURS ORAL 01/02/18 09:00 01/31/18 20:59 01/03/18 08:45 Ceftriaxone Sodium 1 gm/ Dextrose 110 ml @ 220 mls/hr Q24H IVPB 01/02/18 16:00 01/08/18 15:59 01/02/18 18:10 Chlorhexidine Gluconate (Caitlin-Hex 2%) 1 applic DAILY@2000 TOPIC 01/02/18 20:00 02/01/18 19:59 Dextrose (Dextrose 50%) 25 ml STAT PRN IV Hypoglycemia 01/02/18 11:30 01/31/18 11:29 Dextrose (Dextrose 50%) 50 ml STAT PRN IV Hypoglycemia 01/02/18 11:30 01/31/18 11:29 Dobutamine HCl 500 mg/Dextrose 250 ml @ 11.31 mls/ hr Q24H IV 01/02/18 18:00 01/31/18 17:59 01/02/18 19:11 Furosemide (Lasix) 80 mg EVERY 12 HOURS IV 01/02/18 09:00 01/31/18 20:59 01/03/18 08:45 Heparin Sodium/ Sodium Chloride (Heparin 2000 units/Ns 1000ml premix) 2,000 unit ONCE PRN INJ PICC PLACEMENT 01/02/18 15:30 01/04/18 23:59 Hydralazine HCl (Apresoline) 50 mg Q8HR ORAL 01/02/18 06:00 01/31/18 13:59 01/03/18 06:08 Isosorbide Dinitrate (Isordil) 10 mg Q6HR ORAL 01/02/18 06:00 01/31/18 17:59 01/03/18 11:18 Lidocaine HCl (Xylocaine 1% 30ml) 30 ml ONCE PRN INJ PICC PLACEMENT 01/02/18 15:30 01/04/18 23:59 Lorazepam (Ativan) 1 mg Q4H PRN ORAL For Anxiety 01/02/18 03:30 01/08/18 11:29 Metronidazole 100 ml @ 100 mls/hr Q8HR IVPB 01/02/18 06:00 01/08/18 16:59 01/03/18 06:09 Morphine Sulfate (Morphine Sulfate) 4 mg Q6H PRN IVP Severe Pain (Pain Scale 7-10) 01/02/18 05:30 01/08/18 11:29 Ondansetron HCl (Zofran) 4 mg Q6H PRN IVP Nausea & Vomiting 01/02/18 05:30 01/31/18 11:29 Pantoprazole (Protonix) 40 mg EVERY 12 HOURS ORAL 01/02/18 09:00 01/31/18 20:59 01/03/18 08:44 Potassium Chloride (K-Dur) 40 meq TWICE A DAY ORAL 01/03/18 09:30 02/02/18 09:29 01/03/18 10:08 Prednisone (predniSONE) 40 mg DAILY ORAL 01/02/18 09:00 02/01/18 08:59 01/03/18 08:44 Tamsulosin HCl (Flomax) 0.4 mg BID ORAL 01/02/18 09:00 01/31/18 13:14 01/03/18 08:44 MARIUM VIGIL January 03, 2018 13:12
--- NOTE | 2018-01-03 13:22 | Diagnostic Imaging Report ---
Indication: Left-sided weakness Technique: Contiguous 5 mm thick transaxial imaging of the head obtained in a Siemens Sensation [address] scanner. Soft tissue and bone windows generated. Automatic Exposure Control was utilized. Total Dose length Product (DLP): 1340.[address] Dose Index Volume (CTDIvol): 70.38 mGy Comparison: MRI brain 01/01/2018 Findings: Small acute infarcts were noted on the recent MRI examination within the right insular cortex and a small focus in the right frontal cortex. Corresponding areas on current CT examination show subtle low-attenuation edema and minimal ill-definition of the cortex. There is no acute bleed. There is no significant mass effect or edema. There is a cystic focus in the right putamen consistent with an old lacunar infarct. There are mild white matter low-attenuation foci consistent with chronic small vessel disease. Mild generalized atrophy of the brain noted. IMPRESSION: Acute CVA in the right frontal and temporal lobes as described above. The findings seen and appreciated mostly on the recent MRI examination. Some corresponding edema noted without significant mass effect. No associated acute hemorrhage. The CT scanner at [facility] is accredited by the [employer] and the scans are performed using dose optimization techniques as appropriate to a performed exam including Automatic Exposure control.
--- NOTE | 2018-01-03 13:26 | General Progress Note ---
Assessment/Plan Problem List: (1) CKD (chronic kidney disease) ICD Codes: N18.9 - CKD (chronic kidney disease) SNOMED: 506189803 Qualifiers: Qualified Codes: N18.9 - Chronic kidney disease, unspecified (2) HTN (hypertension) ICD Codes: I10 - HTN (hypertension) SNOMED: 56495492 (3) CHF (congestive heart failure) ICD Codes: I50.9 - CHF (congestive heart failure) SNOMED: 12491399 (4) Respiratory distress ICD Codes: R06.00 - Dyspnea, unspecified SNOMED: 220624600 (5) Dyspnea ICD Codes: R06.00 - Dyspnea, unspecified SNOMED: 274947608 (6) Asthma exacerbation ICD Codes: J45.901 - Unspecified asthma with (acute) exacerbation SNOMED: 124715006 (7) FIONA (acute kidney injury) ICD Codes: N17.9 - Acute kidney failure, unspecified SNOMED: 29482822 (8) CHF exacerbation ICD Codes: I50.9 - Heart failure, unspecified SNOMED: 69537473 Qualifiers: Qualified Codes: I50.9 - Heart failure, unspecified (9) CVA (cerebral vascular accident) ICD Codes: I63.9 - Cerebral infarction, unspecified SNOMED: 795682753 Qualifiers: Qualified Codes: I63.9 - Cerebral infarction, unspecified (10) Peripheral edema ICD Codes: R60.9 - Edema, unspecified SNOMED: 120459467 (11) Cardiomyopathy ICD Codes: I42.9 - Cardiomyopathy SNOMED: 88659824 (12) Malnutrition ICD Codes: E46 - Malnutrition SNOMED: 4606057 (13) Hypokalemia ICD Codes: E87.6 - Hypokalemia SNOMED: 02699478 Status: stable, progressing Assessment/Plan #acute right parietal infarct - Neurology consulted, appreciate rec's - No need for transfer to stroke center at this time per neurology - NIH stroke scale last night was 2 prior to TPA. Repeat NIH stroke scale is 5 - s/p tPA given at 0300 on 01/01 - CT head on 01/01 at 0100 was negative. - MRI brain showing acute small right parietal infarct with no hemorrhage, midline shift, or mass effect - continue permissive hypertension to systolic 160-180s x 24 hours - MRA brain and neck without contrast showing attenuated appearance of the distal right middle cerebral artery likely due to technical issues. Also with short segment stenotic appearance of the right proximal ICA, cannot exclude high -grade stenosis. --> check carotid U/S - check repeat CT brain today to r/o bleed. If no bleed, okay to start patient on HSQ for DVT ppx and proceed with defibrillator placement. - ECHO with doppler showing 25-30% EF, pulmonary hypertension, and left ventricular hypokinesis - bilateral venous duplex negative - check lipid panel and A1c - ST/PT/OT eval - Passed swallow eval, on pureed. Will order video swallow study - neurochecks q4hr #Acute asthma exacerbation - prednisone 40mg PO qd x 5 days - duonebs ATC q6hr - ABGs #Sepsis, unknown etiology - ID consulted, appreciate rec's - IV CTX and flagyl per ID - CXR negative. F/u repeat CXR today - f/u urine cx - f/u blood cx - trend CBC #Acute on chronic systolic CHF / severe cardiomyopathy - cardiology consulted, appreciate rec's - strict I&O - 1.5 L fluid restriction - lasix 80mg IV BID - permissive HTN with systolic 160-180s given acute CVA till 01/02 - dobutamine gtt - s/p PICC line 01/02 - EF 25-30% - cardiology recommending defibrillator placement. Discussed risks/benefits with family. Family agreeable. Awaiting clearance per neurology/ID #FIONA due to cardiorenal syndrome - nephrology consulted, appreciate rec's - trend Cr - check urine lytes - consider renal ultrasound - avoid IVF given CHF exacerbation #Hypokalemia - replete electrolytes prn. monitor BMP and Mg DVT ppx: SCD. HSQ when okay with neurology (after repeat CT brain negative for bleed) Discussed case in detail with nursing staff, cardiology, nephrology, neurology, ID, transfer center, patient, and family. Case d/w Dr. Holliday/Dr. Quintero who agrees to the plan above. Disposition: ARU vs. SNF vs. home with home health I spent a total of 46 minutes on this patient's case with greater than 50% spent on care and coordination of the patient. Subjective Date patient seen: January 03, 2018 Time patient seen: 13:17 Allergies: Coded Allergies: No Known Allergies (Unverified , 01/09/14) Subjective - no acute events overnight - seen by neurology. per neurology, no need to transfer patient to [facility] at this time. called transfer center and cancelled transfer. - WBC improved to 13. reports cough today but no sob. denies cp, n/v - family at bedside - seen by ST weller, recommending video swallow study Objective Last 24 Hour Vital Signs Date Time Temp Pulse Resp B/P (MAP) Pulse Ox O2 Delivery O2 Flow Rate FiO2 01/03/18 13:10 74 18 95 Room Air 21 01/03/18 11:18 121/71 01/03/18 08:45 76 128/53 01/03/18 08:03 76 16 100 Room Air 21 01/03/18 08:00 72 01/03/18 08:00 97.6 76 21 128/53 100 Room Air 97.6 01/03/18 07:53 75 16 96 Room Air 21 01/03/18 06:08 113/61 01/03/18 06:08 113/61 01/03/18 04:00 67 01/03/18 04:00 98.2 60 20 113/61 95 Room Air 98.2 01/03/18 01:07 63 18 100 Room Air 21 01/03/18 01:00 62 18 97 Room Air 21 01/03/18 00:11 118/56 01/03/18 00:00 65 01/03/18 00:00 97.7 65 18 115/62 95 Room Air 97.7 01/02/18 22:08 118/56 01/02/18 22:07 61 118/56 01/02/18 20:00 98.0 61 18 118/63 95 Room Air 98.0 01/02/18 20:00 65 01/02/18 19:15 66 18 99 Room Air 21 01/02/18 19:08 65 18 96 Room Air 21 01/02/18 18:10 112/63 01/02/18 16:00 97.1 71 22 112/63 97 Room Air 97.1 01/02/18 16:00 58 01/02/18 13:55 113/51 01/02/18 13:54 113/51 Intake and Output 01/02/18 01/03/18 19:00 07:00 Intake Total 610 ml 299.1 ml Output Total 720 ml 2350 ml Balance -110 ml -2050.9 ml Intake Oral 400 ml 120 ml IV Total 210 ml 179.1 ml Output Urine Total 720 ml 2350 ml Laboratory Tests 01/02/18 14:00: Hepatitis A IgM Antibody [Pending], Hepatitis B Surface Antigen [Pending], Hepatitis B Core IgM Antibody [Pending], Hepatitis C Antibody [Pending] 01/03/18 04:30: White Blood Count 13.9H, Red Blood Count 4.18L, Hemoglobin 12.2L, Hematocrit 37.1L, Mean Corpuscular Volume 89, Mean Corpuscular Hemoglobin 29.3, Mean Corpuscular Hemoglobin Concent 32.9, Red Cell Distribution Width 15.0H, Platelet Count 133L, Mean Platelet Volume 9.2, Neutrophils (%) (Auto) , Lymphocytes (%) (Auto) , Monocytes (%) (Auto) , Eosinophils (%) (Auto) , Basophils (%) (Auto) , Differential Total Cells Counted 100, Neutrophils % ( Manual) 90H, Lymphocytes % (Manual) 5L, Monocytes % (Manual) 5, Eosinophils % ( Manual) 0, Basophils % (Manual) 0, Band Neutrophils 0, Platelet Estimate DecreasedL, Platelet Morphology Normal, Red Blood Cell Morphology Normal, Sodium Level 144, Potassium Level 2.9L, Chloride Level 104, Carbon Dioxide Level 31, Anion Gap 9, Blood Urea Nitrogen 46H, Creatinine 3.2H, Estimat Glomerular Filtration Rate , Glucose Level 125H, Uric Acid 12.7H, Calcium Level 8.3L, Phosphorus Level 4.1, Magnesium Level 1.6L, Total Bilirubin 1.0, Aspartate Amino Transf (AST/SGOT) 28, Alanine Aminotransferase (ALT/SGPT) 28, Alkaline Phosphatase 60, Pro-B-Type Natriuretic Peptide 95462Q, Total Protein 5.6L, Albumin 2.4L, Globulin 3.2, Albumin/Globulin Ratio 0.8L 01/03/18 06:00: Troponin I 0.029 01/03/18 06:20: Rapid Plasma Reagin [Pending] Height (Feet): 5 Height (Inches): 10.00 Weight (Pounds): 162 General Appearance: no apparent distress, alert EENT: PERRL/EOMI, normal ENT inspection Neck: non-tender, normal alignment, supple Cardiovascular: normal peripheral pulses, normal rate, regular rhythm Respiratory/Chest: chest wall non-tender, lungs clear, normal breath sounds Abdomen: normal bowel sounds, non tender, soft Extremities: non-tender Edema: trace edema Neurologic: alert, oriented x 3, motor weakness, pronator drift, other - 3/5 strength to left lower and upper extremity. with left side neglect Skin: normal pigmentation, warm/dry Diane Silva NP January 03, 2018 13:26
--- NOTE | 2018-01-03 13:29 | Cardiology Report ---
APPROVED REPORT EXAM: Two-dimensional and M-mode echocardiogram with Doppler and color Doppler. INDICATION Thrombosis M-Mode DIMENSIONS IVSd1.0 (0.7-1.1cm)Left Atrium (MM)4.8 (1.6-4.0cm) LVDd6.4 (3.5-5.6cm)Aortic Root2.6 (2.0-3.7cm) PWd0.9 (0.7-1.1cm)Aortic Cusp Exc.1.7 (1.5-2.0cm) LVDs5.7 (2.5-4.0cm) PWs1.1 cm Mild left ventricular chamber size. Global left ventricular wall hypokinesis. Left ventricular ejection fraction estimated to be 10-15%. High E/E' ratio is suggestive of elevated intracardiac filling pressure. No evidence of left ventricular hypertrophy. Small posterior pericardial effusion. Mild Bi-atrial enlargement by 2D. Focal aortic valve sclerosis with adequate cusp excursion. Thickened mitral valve leaflets with normal excursion. Mild mitral annulus and aortic root calcification. Pulmonic valve not well visualized. Normal tricuspid valve structure. IVC is normal in size minimal collapse with respiration indicate increased RA pressure. A color flow and spectral Doppler study was performed and revealed: Mild aortic regurgitation. Moderate mitral regurgitation (3 jets). Normal mitral diastolic function. Mild tricuspid regurgitation (2 jets). Tricuspid systolic velocities suggests peak right ventricular systolic pressure of 49 mmHg Consistent with moderate pulmonary hypertension.
[2018-01-03] MEDS ORDERED: OLANZapine 2.5mg tab ORAL PRN (13:30)
--- NOTE | 2018-01-03 13:34 | Consultation ---
History of Present Illness General Date patient seen: January 03, 2018 Chief Complaint: Dyspnea/Respdistress Present Illness HPI 77-year-old, gentleman with history of severe nonischemic dilated cardiomyopathy that was diagnosed initially at [facility] in 2016, ejection fraction was 15% at that time. the pt has been agitated calm now cognitive impairment waxing and waning of consciousness Allergies: Coded Allergies: No Known Allergies (Unverified , 01/09/14) Medication History Scheduled Albuterol Sulfate (Ventolin Hfa), 1 PUFF INH EVERY 6 HOURS, (Reported) Amlodipine Besylate (Norvasc), 5 MG ORAL DAILY Azithromycin* (Zithromax*), 250 MG ORAL DAILY, (Reported) Furosemide* (Lasix*), 20 MG ORAL DAILY Furosemide* (Lasix*), 40 MG ORAL DAILY, (Reported) Hydralazine HCl (Hydralazine HCl), 50 MG ORAL Q8HR Hydrochlorothiazide* (Hydrochlorothiazide*), 25 MG ORAL DAILY Isosorbide Dinitrate* (Isordil*), 10 MG ORAL Q6HR Losartan Potassium* (Cozaar*), 100 MG ORAL DAILY, (Reported) Methylprednisolone (Methylprednisolone*), 4 MG ORAL .as directed, (Reported) Metoprolol Succinate* (Toprol Xl*), 100 MG ORAL DAILY, (Reported) No Known Medications* (NKM - No Known Medications*), 0 ., (Reported) Nystatin* (Nystatin*), 5 ML ORAL THREE TIMES A DAY, (Reported) Prednisone (Prednisone), 40 MG PO DAILY Tamsulosin HCl (Flomax), 0.4 MG ORAL BID Patient History Limited by: medical condition History Provided By: Patient, Medical Record, PMD Healthcare decision maker Resuscitation status Full Code Advanced Directive on File Past Medical/Surgical History Past Medical/Surgical History: (1) Cardiomyopathy (2) Proteinuria (3) CVA (cerebral vascular accident) (4) CHF exacerbation (5) FIONA (acute kidney injury) (6) Asthma exacerbation (7) Malnutrition (8) Peripheral edema (9) Hypokalemia (10) Dyspnea (11) Respiratory distress (12) CHF (congestive heart failure) (13) HTN (hypertension) (14) CKD (chronic kidney disease) Review of Systems Psychiatric: Reports: anxiety, depressed feelings, emotional problems Physical Exam General Appearance: no apparent distress, alert, confused - disoriented to date Last 24 Hour Vital Signs Date Time Temp Pulse Resp B/P (MAP) Pulse Ox O2 Delivery O2 Flow Rate FiO2 01/03/18 13:20 75 16 97 Room Air 21 01/03/18 13:10 74 18 95 Room Air 21 01/03/18 11:18 121/71 01/03/18 08:45 76 128/53 01/03/18 08:03 76 16 100 Room Air 21 01/03/18 08:00 72 01/03/18 08:00 97.6 76 21 128/53 100 Room Air 97.6 01/03/18 07:53 75 16 96 Room Air 21 01/03/18 06:08 113/61 01/03/18 06:08 113/61 01/03/18 04:00 67 01/03/18 04:00 98.2 60 20 113/61 95 Room Air 98.2 01/03/18 01:07 63 18 100 Room Air 21 01/03/18 01:00 62 18 97 Room Air 21 01/03/18 00:11 118/56 01/03/18 00:00 65 01/03/18 00:00 97.7 65 18 115/62 95 Room Air 97.7 01/02/18 22:08 118/56 01/02/18 22:07 61 118/56 01/02/18 20:00 98.0 61 18 118/63 95 Room Air 98.0 01/02/18 20:00 65 01/02/18 19:15 66 18 99 Room Air 21 01/02/18 19:08 65 18 96 Room Air 21 01/02/18 18:10 112/63 01/02/18 16:00 97.1 71 22 112/63 97 Room Air 97.1 01/02/18 16:00 58 01/02/18 13:55 113/51 01/02/18 13:54 113/51 Intake and Output 01/02/18 01/03/18 19:00 07:00 Intake Total 610 ml 299.1 ml Output Total 720 ml 2350 ml Balance -110 ml -2050.9 ml Intake Oral 400 ml 120 ml IV Total 210 ml 179.1 ml Output Urine Total 720 ml 2350 ml Laboratory Tests Test 01/02/18 14:00 01/03/18 04:30 01/03/18 06:00 01/03/18 06:20 Hepatitis A IgM Antibody Pending Hepatitis B Surface Antigen Pending Hepatitis B Core IgM Antibody Pending Hepatitis C Antibody Pending White Blood Count 13.9 K/UL (4.8-10.8) H Red Blood Count 4.18 M/UL (4.70-6.10) L Hemoglobin 12.2 G/DL (14.2-18.0) L Hematocrit 37.1 % (42.0-52.0) L Mean Corpuscular Volume 89 FL (80-99) Mean Corpuscular Hemoglobin 29.3 PG (27.0-31.0) Mean Corpuscular Hemoglobin Concent 32.9 G/DL (32.0-36.0) Red Cell Distribution Width 15.0 % (11.6-14.8) H Platelet Count 133 K/UL (150-450) L Mean Platelet Volume 9.2 FL (6.5-10.1) Neutrophils (%) (Auto) % (45.0-75.0) Lymphocytes (%) (Auto) % (20.0-45.0) Monocytes (%) (Auto) % (1.0-10.0) Eosinophils (%) (Auto) % (0.0-3.0) Basophils (%) (Auto) % (0.0-2.0) Differential Total Cells Counted 100 Neutrophils % (Manual) 90 % (45-75) H Lymphocytes % (Manual) 5 % (20-45) L Monocytes % (Manual) 5 % (1-10) Eosinophils % (Manual) 0 % (0-3) Basophils % (Manual) 0 % (0-2) Band Neutrophils 0 % (0-8) Platelet Estimate Decreased L Platelet Morphology Normal Red Blood Cell Morphology Normal Sodium Level 144 MMOL/L (136-145) Potassium Level 2.9 MMOL/L (3.5-5.1) L Chloride Level 104 MMOL/L (98-107) Carbon Dioxide Level 31 MMOL/L (21-32) Anion Gap 9 mmol/L (5-15) Blood Urea Nitrogen 46 mg/dL (7-18) H Creatinine 3.2 MG/DL (0.55-1.30) H Estimat Glomerular Filtration Rate mL/min (>60) Glucose Level 125 MG/DL (74-106) H Uric Acid 12.7 MG/DL (2.6-7.2) H Calcium Level 8.3 MG/DL (8.5-10.1) L Phosphorus Level 4.1 MG/DL (2.5-4.9) Magnesium Level 1.6 MG/DL (1.8-2.4) L Total Bilirubin 1.0 MG/DL (0.2-1.0) Aspartate Amino Transf (AST/SGOT) 28 U/L (15-37) Alanine Aminotransferase (ALT/SGPT) 28 U/L (12-78) Alkaline Phosphatase 60 U/L (46-116) Pro-B-Type Natriuretic Peptide 58911 pg/mL (0-125) H Total Protein 5.6 G/DL (6.4-8.2) L Albumin 2.4 G/DL (3.4-5.0) L Globulin 3.2 g/dL Albumin/Globulin Ratio 0.8 (1.0-2.7) L Troponin I 0.029 ng/mL (0.000-0.056) Rapid Plasma Reagin Pending Height (Feet): 5 Height (Inches): 10.00 Weight (Pounds): 162 Medications Current Medications Medications (Trade) Dose Ordered Sig/Denny Route PRN Reason Start Time Stop Time Status Last Admin Dose Admin Acetaminophen (Tylenol) 650 mg Q4H PRN ORAL Mild Pain (Pain Scale 1-3) 01/02/18 04:00 01/31/18 11:59 Acetaminophen (Tylenol) 650 mg Q4H PRN ORAL T>100.5 01/02/18 04:00 01/31/18 11:59 Albuterol/ Ipratropium (Albuterol/ Ipratropium) 3 ml Q6HRT HHN 01/02/18 07:00 01/06/18 12:59 01/03/18 13:10 Allopurinol (Allopurinol) 300 mg DAILY ORAL 01/04/18 09:00 02/03/18 08:59 Carvedilol (Coreg) 3.125 mg EVERY 12 HOURS ORAL 01/02/18 09:00 01/31/18 20:59 01/03/18 08:45 Ceftriaxone Sodium 1 gm/ Dextrose 110 ml @ 220 mls/hr Q24H IVPB 01/02/18 16:00 01/08/18 15:59 01/02/18 18:10 Chlorhexidine Gluconate (Caitlin-Hex 2%) 1 applic DAILY@2000 TOPIC 01/02/18 20:00 02/01/18 19:59 Dextrose (Dextrose 50%) 25 ml STAT PRN IV Hypoglycemia 01/02/18 11:30 01/31/18 11:29 Dextrose (Dextrose 50%) 50 ml STAT PRN IV Hypoglycemia 01/02/18 11:30 01/31/18 11:29 Dobutamine HCl 500 mg/Dextrose 250 ml @ 11.31 mls/ hr Q24H IV 01/02/18 18:00 01/31/18 17:59 01/02/18 19:11 Furosemide (Lasix) 80 mg EVERY 12 HOURS IV 01/02/18 09:00 01/31/18 20:59 01/03/18 08:45 Heparin Sodium/ Sodium Chloride (Heparin 2000 units/Ns 1000ml premix) 2,000 unit ONCE PRN INJ PICC PLACEMENT 01/02/18 15:30 01/04/18 23:59 Hydralazine HCl (Apresoline) 50 mg Q8HR ORAL 01/02/18 06:00 01/31/18 13:59 01/03/18 06:08 Isosorbide Dinitrate (Isordil) 10 mg Q6HR ORAL 01/02/18 06:00 01/31/18 17:59 01/03/18 11:18 Lidocaine HCl (Xylocaine 1% 30ml) 30 ml ONCE PRN INJ PICC PLACEMENT 01/02/18 15:30 01/04/18 23:59 Lorazepam (Ativan) 1 mg Q4H PRN ORAL For Anxiety 01/02/18 03:30 01/08/18 11:29 Metronidazole 100 ml @ 100 mls/hr Q8HR IVPB 01/02/18 06:00 01/08/18 16:59 01/03/18 06:09 Morphine Sulfate (Morphine Sulfate) 4 mg Q6H PRN IVP Severe Pain (Pain Scale 7-10) 01/02/18 05:30 01/08/18 11:29 Ondansetron HCl (Zofran) 4 mg Q6H PRN IVP Nausea & Vomiting 01/02/18 05:30 01/31/18 11:29 Pantoprazole (Protonix) 40 mg EVERY 12 HOURS ORAL 01/02/18 09:00 01/31/18 20:59 01/03/18 08:44 Potassium Chloride (K-Dur) 40 meq TWICE A DAY ORAL 01/03/18 09:30 02/02/18 09:29 01/03/18 10:08 Prednisone (predniSONE) 40 mg DAILY ORAL 01/02/18 09:00 02/01/18 08:59 01/03/18 08:44 Tamsulosin HCl (Flomax) 0.4 mg BID ORAL 01/02/18 09:00 01/31/18 13:14 01/03/18 08:44 Assessment/Plan Status: stable Assessment/Plan encephalopathy agitated -ativan prn -zyprexa prn lacks capacity to make decisions Ralph Alva M.D. January 03, 2018 13:34
--- NOTE | 2018-01-03 13:56 | Cardiology Report ---
APPROVED REPORT EKG Measurement Heart [id number] Sinus rhythm with occasional premature ventricular complexes Left axis deviation Incomplete left bundle branch block Prolonged QT Abnormal ECG
[2018-01-03] MEDS: cefTRIAXone 1 GM in D5W 110 ML IVPB SCH (15:33)
--- NOTE | 2018-01-03 15:39 | Diagnostic Imaging Report ---
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 The left upper extremity was prepped with alcohol. All elements of maximal sterile barrier technique were followed including usage of a cap, mask, sterile gown, sterile gloves, hand hygiene and a large sterile sheet. Sonographic evaluation of the upper extremity was performed demonstrating a patent and compressible brachial vein. Access was obtained under real-time ultrasound guidance (with utilization of sterile gel and sterile probe cover) and digital image was saved and archived. An .018 wire was introduced. Needle exchanged for a 5 Citizen [place] peel-away sheath. Measurements were obtained. A 5 [place] dual-lumen Power PICC line catheter was cut to 45 cm and introduced over the wire. Peel-away sheath and wire were removed.Catheter was secured to the skin using 2-0 Prolene suture. Both ports aspirate and flush easily. Fluoroscopic images show distal tip in the superior vena cava. Total fluoroscopic time one minute Impression: Successful placement of an upper extremity PICC line catheter
--- NOTE | 2018-01-03 15:58 | Cardiac Electrophysiology PN ---
Assessment/Plan Assessment/Plan 1. 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 On Lasix 80 mg IV b.i.d., Coreg 3.125 mg b.i.d., hydralazine 50 mg every eight hours , Isordil 10 mg every 6 hours. Will proceed with defibrillator implantation after stabilization. He does not meet criteria for cardiac resynchronization therapy as his QRS duration is less than 120 milliseconds. 2. Renal failure. Mildly improved from 3.7 to 3.2. Further evaluation by Dr. Dennis on low-dose dobutamine. 3. Elevated liver function tests likely due to right heart failure and hepatic congestion. 4[place] [id number], could be due to urinary tract infection. On Levaquin.Improved. SALINAS RN Subjective Subjective Feeling better. On Dobutamine 5 mcg/min Objective Last 24 Hour Vital Signs Date Time Temp Pulse Resp B/P (MAP) Pulse Ox O2 Delivery O2 Flow Rate FiO2 01/03/18 15:33 125/68 01/03/18 13:20 75 16 97 Room Air 21 01/03/18 13:10 74 18 95 Room Air 21 01/03/18 11:18 121/71 01/03/18 08:45 76 128/53 01/03/18 08:03 76 16 100 Room Air 21 01/03/18 08:00 72 01/03/18 08:00 97.6 76 21 128/53 100 Room Air 97.6 01/03/18 07:53 75 16 96 Room Air 21 01/03/18 06:08 113/61 01/03/18 06:08 113/61 01/03/18 04:00 67 01/03/18 04:00 98.2 60 20 113/61 95 Room Air 98.2 01/03/18 01:07 63 18 100 Room Air 21 01/03/18 01:00 62 18 97 Room Air 21 01/03/18 00:11 118/56 01/03/18 00:00 65 01/03/18 00:00 97.7 65 18 115/62 95 Room Air 97.7 01/02/18 22:08 118/56 01/02/18 22:07 61 118/56 01/02/18 20:00 98.0 61 18 118/63 95 Room Air 98.0 01/02/18 20:00 65 01/02/18 19:15 66 18 99 Room Air 21 01/02/18 19:08 65 18 96 Room Air 21 01/02/18 18:10 112/63 01/02/18 16:00 97.1 71 22 112/63 97 Room Air 97.1 01/02/18 16:00 58 Intake and Output 01/02/18 01/03/18 19:00 07:00 Intake Total 610 ml 299.1 ml Output Total 720 ml 2350 ml Balance -110 ml -2050.9 ml Intake Oral 400 ml 120 ml IV Total 210 ml 179.1 ml Output Urine Total 720 ml 2350 ml Laboratory Tests Test 01/03/18 04:30 01/03/18 06:00 01/03/18 06:20 White Blood Count 13.9 K/UL (4.8-10.8) H Red Blood Count 4.18 M/UL (4.70-6.10) L Hemoglobin 12.2 G/DL (14.2-18.0) L Hematocrit 37.1 % (42.0-52.0) L Mean Corpuscular Volume 89 FL (80-99) Mean Corpuscular Hemoglobin 29.3 PG (27.0-31.0) Mean Corpuscular Hemoglobin Concent 32.9 G/DL (32.0-36.0) Red Cell Distribution Width 15.0 % (11.6-14.8) H Platelet Count 133 K/UL (150-450) L Mean Platelet Volume 9.2 FL (6.5-10.1) Neutrophils (%) (Auto) % (45.0-75.0) Lymphocytes (%) (Auto) % (20.0-45.0) Monocytes (%) (Auto) % (1.0-10.0) Eosinophils (%) (Auto) % (0.0-3.0) Basophils (%) (Auto) % (0.0-2.0) Differential Total Cells Counted 100 Neutrophils % (Manual) 90 % (45-75) H Lymphocytes % (Manual) 5 % (20-45) L Monocytes % (Manual) 5 % (1-10) Eosinophils % (Manual) 0 % (0-3) Basophils % (Manual) 0 % (0-2) Band Neutrophils 0 % (0-8) Platelet Estimate Decreased L Platelet Morphology Normal Red Blood Cell Morphology Normal Sodium Level 144 MMOL/L (136-145) Potassium Level 2.9 MMOL/L (3.5-5.1) L Chloride Level 104 MMOL/L (98-107) Carbon Dioxide Level 31 MMOL/L (21-32) Anion Gap 9 mmol/L (5-15) Blood Urea Nitrogen 46 mg/dL (7-18) H Creatinine 3.2 MG/DL (0.55-1.30) H Estimat Glomerular Filtration Rate mL/min (>60) Glucose Level 125 MG/DL (74-106) H Uric Acid 12.7 MG/DL (2.6-7.2) H Calcium Level 8.3 MG/DL (8.5-10.1) L Phosphorus Level 4.1 MG/DL (2.5-4.9) Magnesium Level 1.6 MG/DL (1.8-2.4) L Total Bilirubin 1.0 MG/DL (0.2-1.0) Aspartate Amino Transf (AST/SGOT) 28 U/L (15-37) Alanine Aminotransferase (ALT/SGPT) 28 U/L (12-78) Alkaline Phosphatase 60 U/L (46-116) Pro-B-Type Natriuretic Peptide 06912 pg/mL (0-125) H Total Protein 5.6 G/DL (6.4-8.2) L Albumin 2.4 G/DL (3.4-5.0) L Globulin 3.2 g/dL Albumin/Globulin Ratio 0.8 (1.0-2.7) L Troponin I 0.029 ng/mL (0.000-0.056) Rapid Plasma Reagin Pending Microbiology Date/Time Source Procedure Growth Status 01/01/18 09:05 Blood Blood Culture - Preliminary NO GROWTH AFTER 24 HOURS Resulted 01/01/18 08:50 Blood Blood Culture - Preliminary NO GROWTH AFTER 24 HOURS Resulted 01/01/18 01:15 Urine,Clean Catch Urine Culture - Preliminary NO GROWTH AFTER 24 HOURS Resulted Objective HEAD AND NECK: Positive JVD. LUNGS: Decreased breath sounds. CARDIOVASCULAR: Regular S1 and S2 with no gallop or murmur. ABDOMEN: Soft. EXTREMITIES: 2+ pitting edema. Andre Howard MD January 03, 2018 15:58
[2018-01-03 16:00] VITALS: BP 147/83
[2018-01-03] MEDS ORDERED: DOBUTamine Inj 500 MG in D5W 210 ML IV SCH (18:00)
--- NOTE | 2018-01-03 18:00 | Consultation ---
DATE OF CONSULTATION: 01/03/2018 NEUROLOGY CONSULTATION CONSULTING PHYSICIAN: Blake Lara M.D. REQUESTING PHYSICIAN: jAay Holliday M.D. HISTORY: Mr Agnes Winslow is a 77-year-old, right-handed, black gentleman, who does have a past history of hypertension, chronic kidney disease, cardiomyopathy, severe congestive heart failure, and recently an echocardiogram at [facility] that revealed an ejection fraction of 15%. He also has a history of asthma. On 01/01/2018, he suddenly developed left-sided weakness. He was brought into the [facility] emergency room and was diagnosed with a right brain stroke. A CT scan of the brain was done and was unremarkable. He was then treated with tPA. He did have an MRI of the brain done later that day, which revealed a right brain infarct. At this point in time, the patient is significantly weak on the left side and tends to neglect his left side. This consultation was requested to further manage the patient's cerebrovascular disease. As per the patient, he has not had a stroke in the past and at this point in time, denies any problems with vision, speech, language, but is aware that his left side is not moving well. He also feels that the left hand is not normal with regards to sensation. PAST MEDICAL HISTORY: Significant for hypertension, chronic kidney disease, cardiomyopathy, congestive heart failure, and asthma. FAMILY HISTORY: Significant for high blood pressure in other family members. PERSONAL HISTORY: Home: He lives with his . 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 Habits: he denies use of alcohol, tobacco, or illicit drugs. He states that in the past, he did smoke. PRESENT MEDICATIONS: Include magnesium sulfate, potassium chloride, dobutamine, ceftriaxone, heparin, carvedilol, furosemide, pantoprazole, prednisone, Flomax, DuoNeb, metronidazole, hydralazine, Isordil, morphine p.r.n., Zofran p.r.n., Tylenol p.r.n., and Ativan p.r.n. PHYSICAL EXAMINATION: GENERAL: He is a well-developed relatively well-nourished black gentleman, lying in bed, in no acute distress. VITAL SIGNS: Pulse 76 per minute, blood pressure 128/53 mmHg, respirations 16 per minute, and temperature 97.6 degrees Fahrenheit. HEAD: Normocephalic and atraumatic. NECK: No neck rigidity was observed. EENT: Examination benign. NEUROLOGICAL EXAMINATION: MENTAL STATUS EXAMINATION: He was awake and alert. He was oriented to person, place, and time except for the exact date. He was able to recall 3/3 words immediately after 1 minute and after 3 minutes on the second trial. He was able to remember presidents, Trump and Obama, but could not remember presidents prior to that. His mathematical skills were fairly good. His visuospatial function was preserved. SPEECH: He had a mild dysarthria. LANGUAGE: He had no aphasia. CRANIAL NERVES EXAMINATION: II: He had a left visual field cut on confrontation testing. III, IV & : External ocular movements were full and the pupils 3 mm in diameter, equal, round, regular, and reactive to light. V: He had normal facial sensations and the temporales, masseters, and pterygoids functioned normally. VII: He had left seventh central facial paresis. VIII: He was able to hear well bilaterally and had no nystagmus. IX: The palate moved symmetrically on phonation. X: He had no hoarseness of voice. XI: The sternocleidomastoids and trapezii functioned normally. XII: The tongue was in the midline without any fasciculations or atrophy. MOTOR SYSTEM: The tone was normal on the right side and diminished on the left side. Examination of muscle mass revealed no focal wasting. Examination of power revealed G 5/5 power in the right upper extremity. In the right lower extremity he also had G 5/5 power except for G 4/5 power in the iliopsoas. On the left side, he had G 0/5 power except for G 2/5 power in the hip rotators. SENSORY EXAMINATION: He tended to neglect his left side. He made numerous errors on testing for pinprick and light touch over his entire left body. In addition, he had normal graphesthesia on the right side and agraphesthesia on the left side. REFLEXES: 1++ on the right and 0 on the left at the biceps, triceps, and brachioradialis, 1++ on the right and 2++ on the left at the knees. 0 at both ankles. The plantar response was flexor on the right and extensor on the left. COORDINATION: He performed well on [id number] testing on the right side. He was unable to perform on the left side. He was unable to perform [id number] testing bilaterally. STANCE & GAIT: Could not be tested. DIAGNOSTIC IMPRESSION: 1. Mr Agnes Winslow is a 77-year-old, right-handed, black gentleman, who does have a past history of hypertension, chronic kidney disease, cardiomyopathy, severe congestive heart failure with an ejection fraction at 15% in the near past and asthma. On 01/01/2018, he suddenly developed left-sided weakness. He was brought into the [facility] emergency room, diagnosed with a left brain stroke, and given tPA. Since then, he has become significantly weaker on his left side, has developed left-sided neglect, and some visual problems on that side. 2. On neurological examination at this time, he is disoriented to the exact date, has mild problems with recent memory, has problems with remote memory, has a mild dysarthria, a left visual field cut on confrontation testing, a left seventh central facial paresis, left hemiplegia with minimal G 2/5 hip rotation, right proximal lower extremity weakness, a left hemisensory deficit and agraphesthesia, loss of deep tendon reflexes in the upper extremities with brisk left knee jerk and extensor plantar response on the left side. 3. The CT scan of the brain without contrast performed on 01/01/2018 was read as being normal. 4. An MRI scan of the brain performed on 01/01/2018 revealed "an acute small area of right parietal infarct, but no other pathology". 5. Laboratory data obtained thus far has revealed an elevated WBC count at 13.9, and a mild anemia with a hemoglobin of 12.2. The chemistry panel at this point reveals a low potassium at 2.9, BUN elevated to 46, creatinine elevated to 3.2, glucose elevated to 125, and hemoglobin A1c elevated to 6.2%. His lipid panel reveals a total cholesterol of 118 with an LDL of 83 and an HDL of 26. His TSH is normal at 0.39. 6. 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 RECOMMENDATIONS: 1. Agree with management thus far. 2. The patient should be started on a course of physical, occupational and speech and language therapy. 3. A repeat CT scan of the brain will be ordered to determine the size of the infarct. 4. A carotid duplex will be ordered to evaluate the patient for hemodynamically significant extracranial carotid disease. 5. The patient will be worked up thoroughly for other treatable causes of cerebrovascular disease. 6. The patient will be observed closely, and depending on how he fares, further recommendations will be given. Thank you for entrusting me with the care of Mr. Winslow. I shall follow him with you. Blake Lara M.D., M.S.P.H. DR: SIMIN JOB#: [id number] MTDD
[2018-01-03 20:00] VITALS: BP 136/76
[2018-01-03] MEDS: Dyna-Hex 2% Top Sol 2oz TOPIC SCH (20:59)
[2018-01-04] VITALS (8 sets, daily range): BP systolic 134–163; BP diastolic 70–109
[2018-01-04] MEDS: Albuterol/Ipratropium 3ml neb HHN SCH ×4 (01:12→19:00)
--- NOTE | 2018-01-04 03:00 | Consultation ---
DATE OF CONSULTATION: 01/03/2018 NOTE: POOR AUDIO HEMATOLOGY/ONCOLOGY CONSULTATION CONSULTING PHYSICIAN: Mahendra Marinelli M.D. REQUESTING PHYSICIAN: Ajay Holliday M.D. REASON FOR CONSULT: Evaluation of thrombocytopenia and anemia. IDENTIFYING DATA: Dear Dr. Holliday, The patient is a pleasant 77-year-old male with past medical history significant for CVA, CHF, at this time presents to the hospital, noted to be dyspneic respiratory distress, diagnosed with acute CVA, transferred to a higher level of care. The patient appears to have CHF exacerbation, noted to have leukocytosis, potential sepsis. ID Service was consulted, on antibiotics, on Rocephin and Flagyl. MAR was reviewed. recommendation as well as Cardiology Service. The patient noted to be thrombocytopenic. Hematology Service was consulted for further evaluation and treatment. PAST MEDICAL HISTORY: CKD, cardiomyopathy, hypertension, and CHF. PAST SURGICAL HISTORY: None noted. ALLERGIES: No known drug allergies. FAMILY HISTORY: Noncontributory. SOCIAL HISTORY: No alcohol, smoking, or illicit drug use. REVIEW OF SYSTEMS: Unable to obtain given mental status. PHYSICAL EXAMINATION: VITAL SIGNS: Reviewed. GENERAL: No distress. LUNGS: Clear. CARDIOVASCULAR: Regular rate. No S3 or S4. ABDOMEN: Soft, nontender, and nondistended. EXTREMITIES: No cyanosis, swelling, or edema. LABORATORY AND DIAGNOSTIC DATA: WBC 13.9, hemoglobin 12.2, and platelet count 133,000. INR 1.3. BUN of 46 and creatinine 3.2. Imaging, . ASSESSMENT AND RECOMMENDATION: 1. Thrombocytopenia, potentially secondary to underlying medications. Has been Cardiology Service. Continue the patient on Lasix as well as antibiotics. monitoring at this time. The patient is also on pressors, could be due to underlying sepsis. 2. Anemia due to underlying chronic disease. Continue to closely monitor. 3. Leukocytosis. imaging. Continue antibiotics as per primary team and Infectious Disease. 4. Acute cerebrovascular accident, noted on MRI. Further management per Neurology 5. Shortness of breath . 6. Sepsis . 7. Hypertension. Elevated blood pressure. I appreciate the consultation. Mahendra Marinelli M.D. DR: CARLYN JOB#: [id number] CC:
[2018-01-04] MEDS: HydrALAZINE 50mg tab ORAL SCH ×3 (05:54→21:33)
[2018-01-04 06:07] LABS: HEMATOCRIT 40.1 % (42.0-52.0); HEMOGLOBIN 13.3 G/DL (14.2-18.0); MEAN CORPUSCULAR VOLUME 89 FL (80-99); PLATELET COUNT 121 K/UL (150-450); RED BLOOD COUNT 4.48 M/UL (4.70-6.10); RED CELL DISTRIBUTION WIDTH 15.3 % (11.6-14.8); WHITE BLOOD COUNT 11.2 K/UL (4.8-10.8)
[2018-01-04 06:52] LABS: ALANINE AMINOTRANSFERASE 31 U/L (12-78); ALBUMIN 2.7 G/DL (3.4-5.0); ALBUMIN/GLOBULIN RATIO 0.8 (1.0-2.7); ALKALINE PHOSPHATASE 61 U/L (46-116); ANION GAP 9 mmol/L (5-15); ASPARTATE AMINO TRANSFERASE 26 U/L (15-37); BLOOD UREA NITROGEN 39 mg/dL (7-18); CALCIUM 8.2 MG/DL (8.5-10.1); CARBON DIOXIDE 33 MMOL/L (21-32); CHLORIDE 101 MMOL/L (98-107); CREATININE 2.6 MG/DL (0.55-1.30); POTASSIUM 3.2 MMOL/L (3.5-5.1); SODIUM 143 MMOL/L (136-145)
--- NOTE | 2018-01-04 08:19 | General Progress Note ---
Assessment/Plan Assessment/Plan ASSESSMENT AND RECOMMENDATION: 1. Thrombocytopenia, potentially secondary to underlying medications. Has been seen by Cardiology Service, meds have been reviewed. --> Also can be 2/2 sepsis has been on dobutamine gtt --> hepatitis and hiv have been ordered --> US of the abdomen is pending, to r/o hsm and cirrhosis 2. Anemia due to underlying chronic disease. Continue to closely monitor. --> at this time, hold off on extensive workup unless hgb less than 10 3. Leukocytosis. Likely related to underlying ID issue. Continue antibiotics as per primary team and Infectious Disease. 4. Acute cerebrovascular accident, noted on MRI. Further management per neurology 5. Shortness of breath . 6. Sepsis 7. Hypertension. Elevated blood pressure. --> further management per cards Subjective Constitutional: Denies: no symptoms, chills, diaphoresis, fever, malaise, weakness, other HEENT: Denies: no symptoms, eye pain, blurred vision, tearing, double vision, ear pain, ear discharge, nose pain, nose congestion, throat pain, throat swelling, mouth pain, mouth swelling, other Cardiovascular: Denies: no symptoms, chest pain, edema, irregular heart rate, lightheadedness, palpitations, syncope, other Respiratory: Denies: no symptoms, cough, orthopnea, shortness of breath, SOB with excertion, SOB at rest, sputum, stridor, wheezing, other Gastrointestinal/Abdominal: Denies: no symptoms, abdomen distended, abdominal pain, black stools, tarry stools, blood in stool, constipated, diarrhea, difficulty swallowing, nausea, poor appetite, poor fluid intake, rectal bleeding , vomiting, other Genitourinary: Denies: no symptoms, burning, discharge, frequency, flank pain, hematuria, incontinence, pain, urgency, other Neurologic/Psychiatric: Denies: no symptoms, anxiety, depressed, emotional problems, headache, numbness, paresthesia, pre-existing deficit, seizure, tingling, tremors, weakness, other Endocrine: Denies: no symptoms, excessive sweating, flushing, intolerance to cold, intolerance to heat, increased hunger, increased thirst, increased urine, unexplained weight gain, unexplained weight loss, other Hematologic/Lymphatic: Denies: no symptoms, anemia, easy bleeding, easy bruising, other Allergies: Coded Allergies: No Known Allergies (Unverified , 5/27/14) Subjective no fevers or chills, remains alert, counts have been reviewed Objective Last 24 Hour Vital Signs Date Time Temp Pulse Resp B/P (MAP) Pulse Ox O2 Delivery O2 Flow Rate FiO2 01/04/18 05:54 135/83 01/04/18 05:53 135/83 01/04/18 04:41 70 01/04/18 04:00 97.8 72 20 136/78 96 Room Air 97.8 01/04/18 01:20 75 16 99 Room Air 21 01/04/18 01:12 73 18 98 Room Air 21 01/04/18 00:00 76 01/04/18 00:00 97.2 76 18 137/72 98 Room Air 97.2 01/03/18 23:45 137/72 01/03/18 21:01 136/76 01/03/18 21:00 77 136/76 01/03/18 20:00 97.4 77 22 136/76 100 Room Air 97.4 01/03/18 19:33 79 16 99 Room Air 21 01/03/18 19:27 70 01/03/18 19:24 71 18 97 Room Air 21 01/03/18 17:28 118/52 01/03/18 16:00 79 01/03/18 16:00 97.4 76 20 147/83 97 Room Air 97.4 01/03/18 15:33 125/68 01/03/18 13:20 75 16 97 Room Air 21 01/03/18 13:10 74 18 95 Room Air 21 01/03/18 12:00 97.2 78 20 121/71 100 Room Air 97.2 01/03/18 12:00 78 01/03/18 11:18 121/71 01/03/18 08:45 76 128/53 Intake and Output 01/03/18 01/04/18 19:00 07:00 Intake Total 622.48 ml 431.36 ml Output Total 2000 ml 3500 ml Balance -1377.52 ml -3068.64 ml Intake Oral 150 ml IV Total 622.48 ml 281.36 ml Output Urine Total 2000 ml 3500 ml Laboratory Tests 01/04/18 05:00: White Blood Count 11.2H, Red Blood Count 4.48L, Hemoglobin 13.3L, Hematocrit 40.1L, Mean Corpuscular Volume 89, Mean Corpuscular Hemoglobin 29.6, Mean Corpuscular Hemoglobin Concent 33.2, Red Cell Distribution Width 15.3H, Platelet Count 121L, Mean Platelet Volume 10.7H, Neutrophils (%) (Auto) , Lymphocytes (%) (Auto) , Monocytes (%) (Auto) , Eosinophils (%) (Auto) , Basophils (%) (Auto) , Neutrophils % (Manual) [Pending], Lymphocytes % (Manual) [Pending], Platelet Estimate [Pending], Platelet Morphology [Pending], Sodium Level 143, Potassium Level 3.2L, Chloride Level 101, Carbon Dioxide Level 33H, Anion Gap 9, Blood Urea Nitrogen 39H, Creatinine 2.6H, Estimat Glomerular Filtration Rate , Glucose Level 128H, Calcium Level 8.2L, Phosphorus Level 4.0, Magnesium Level 1.9, Total Bilirubin 1.0, Aspartate Amino Transf (AST/SGOT) 26, Alanine Aminotransferase (ALT/SGPT) 31, Alkaline Phosphatase 61, Total Protein 6.3L, Albumin 2.7L, Globulin 3.6, Albumin/Globulin Ratio 0.8L Height (Feet): 5 Height (Inches): 10.00 Weight (Pounds): 165 General Appearance: no apparent distress EENT: TMs normal Neck: supple Cardiovascular: regular rhythm Respiratory/Chest: normal breath sounds Abdomen: normal bowel sounds Extremities: non-tender Edema: 1+ Leg (L), 1+ Leg (R) Edema: mild edema Neurologic: no motor/sensory deficits Skin: warm/dry Mahendra Marinelli MD January 04, 2018 08:19
[2018-01-04] MEDS: Tamsulosin 0.4mg cap ORAL SCH ×2 (09:53→17:50)
--- NOTE | 2018-01-04 11:01 | Diagnostic Imaging Report ---
Indication: Shortness of breath Technique: One view of the chest Comparison: 01/01/2018 Findings: The heart is enlarged. There is a left arm PICC now present. The lungs and pleural spaces are unremarkable. There is better inspiration on the current study Impression: No definite acute process Interim PICC placement
--- NOTE | 2018-01-04 13:57 | Nephrology Progress Note ---
Assessment/Plan Problem List: (1) CKD (chronic kidney disease) (2) CHF (congestive heart failure) (3) Cardiomyopathy (4) Proteinuria Assessment CKD- Cr lower chronic systolic heart failure Right heart failuer Edema due to above and possible venous insuf Non-ischemic cardiomyopathy no cad by cath 2016 History of DVT pulmonary HTN h/o Thrombocytopenia HTN Proteinuria previous echo: Severe global left ventricular hypokinesis with septal thinning. Left ventricular ejection fraction estimated to be 10-15 %. Plan mag and K supplement Optimize cardiac status, on Dobutamin monitor renal parameters Avoid nephrotoxics per orders Subjective ROS Limited/Unobtainable: No Constitutional: Reports: malaise Objective Objective Last 24 Hour Vital Signs Date Time Temp Pulse Resp B/P (MAP) Pulse Ox O2 Delivery O2 Flow Rate FiO2 01/04/18 12:17 135/70 01/04/18 12:00 78 01/04/18 11:57 98.3 76 18 135/70 95 Room Air 98.3 01/04/18 10:31 80 20 151/72 98 Room Air 01/04/18 09:52 93 112/64 01/04/18 08:00 97.5 80 25 163/109 96 Room Air 97.5 01/04/18 08:00 80 01/04/18 07:40 Room Air 01/04/18 07:40 Room Air 01/04/18 05:54 135/83 01/04/18 05:53 135/83 01/04/18 04:41 70 01/04/18 04:00 97.8 72 20 136/78 96 Room Air 97.8 01/04/18 01:20 75 16 99 Room Air 21 01/04/18 01:12 73 18 98 Room Air 21 01/04/18 00:00 76 01/04/18 00:00 97.2 76 18 137/72 98 Room Air 97.2 01/03/18 23:45 137/72 01/03/18 21:01 136/76 01/03/18 21:00 77 136/76 01/03/18 20:00 97.4 77 22 136/76 100 Room Air 97.4 01/03/18 19:33 79 16 99 Room Air 21 01/03/18 19:27 70 01/03/18 19:24 71 18 97 Room Air 21 01/03/18 17:28 118/52 01/03/18 16:00 79 01/03/18 16:00 97.4 76 20 147/83 97 Room Air 97.4 01/03/18 15:33 125/68 Intake and Output 01/03/18 01/04/18 19:00 07:00 Intake Total 622.48 ml 431.36 ml Output Total 2000 ml 3500 ml Balance -1377.52 ml -3068.64 ml Intake Oral 150 ml IV Total 622.48 ml 281.36 ml Output Urine Total 2000 ml 3500 ml Laboratory Tests 01/04/18 05:00: White Blood Count 11.2H, Red Blood Count 4.48L, Hemoglobin 13.3L, Hematocrit 40.1L, Mean Corpuscular Volume 89, Mean Corpuscular Hemoglobin 29.6, Mean Corpuscular Hemoglobin Concent 33.2, Red Cell Distribution Width 15.3H, Platelet Count 121L, Mean Platelet Volume 10.7H, Neutrophils (%) (Auto) , Lymphocytes (%) (Auto) , Monocytes (%) (Auto) , Eosinophils (%) (Auto) , Basophils (%) (Auto) , Differential Total Cells Counted 100, Neutrophils % ( Manual) 86H, Lymphocytes % (Manual) 8L, Monocytes % (Manual) 6, Eosinophils % ( Manual) 0, Basophils % (Manual) 0, Band Neutrophils 0, Platelet Estimate DecreasedL, Platelet Morphology Normal, Red Blood Cell Morphology Normal, Sodium Level 143, Potassium Level 3.2L, Chloride Level 101, Carbon Dioxide Level 33H, Anion Gap 9, Blood Urea Nitrogen 39H, Creatinine 2.6H, Estimat Glomerular Filtration Rate , Glucose Level 128H, Calcium Level 8.2L, Phosphorus Level 4.0, Magnesium Level 1.9, Total Bilirubin 1.0, Aspartate Amino Transf (AST /SGOT) 26, Alanine Aminotransferase (ALT/SGPT) 31, Alkaline Phosphatase 61, Total Protein 6.3L, Albumin 2.7L, Globulin 3.6, Albumin/Globulin Ratio 0.8L Height (Feet): 5 Height (Inches): 10.00 Weight (Pounds): 165 General Appearance: no apparent distress Cardiovascular: normal rate Respiratory/Chest: decreased breath sounds Abdomen: soft Objective no other change BHARATHI LOVE January 04, 2018 13:57
--- NOTE | 2018-01-04 15:36 | General Progress Note ---
Assessment/Plan Problem List: (1) CKD (chronic kidney disease) ICD Codes: N18.9 - CKD (chronic kidney disease) SNOMED: 437928586 Qualifiers: Qualified Codes: N18.9 - Chronic kidney disease, unspecified (2) HTN (hypertension) ICD Codes: I10 - HTN (hypertension) SNOMED: 25053928 (3) CHF (congestive heart failure) ICD Codes: I50.9 - CHF (congestive heart failure) SNOMED: 16835254 (4) Respiratory distress ICD Codes: R06.00 - Dyspnea, unspecified SNOMED: 697166850 (5) Dyspnea ICD Codes: R06.00 - Dyspnea, unspecified SNOMED: 585978991 (6) Asthma exacerbation ICD Codes: J45.901 - Unspecified asthma with (acute) exacerbation SNOMED: 101111318 (7) FIONA (acute kidney injury) ICD Codes: N17.9 - Acute kidney failure, unspecified SNOMED: 19233814 (8) CHF exacerbation ICD Codes: I50.9 - Heart failure, unspecified SNOMED: 01224327 Qualifiers: Qualified Codes: I50.9 - Heart failure, unspecified (9) CVA (cerebral vascular accident) ICD Codes: I63.9 - Cerebral infarction, unspecified SNOMED: 075661564 Qualifiers: Qualified Codes: I63.9 - Cerebral infarction, unspecified (10) Peripheral edema ICD Codes: R60.9 - Edema, unspecified SNOMED: 896559271 (11) Cardiomyopathy ICD Codes: I42.9 - Cardiomyopathy SNOMED: 42379648 (12) Malnutrition ICD Codes: E46 - Malnutrition SNOMED: 4140805 (13) Hypokalemia ICD Codes: E87.6 - Hypokalemia SNOMED: 40449207 (14) Prediabetes ICD Codes: R73.03 - Prediabetes SNOMED: 645721962 (15) HLD (hyperlipidemia) ICD Codes: E78.5 - Hyperlipidemia, unspecified SNOMED: 94393046 Status: stable, progressing Assessment/Plan #acute right parietal infarct - Neurology consulted, appreciate rec's - No need for transfer to stroke center at this time per neurology - NIH stroke scale last night was 2 prior to TPA. Repeat NIH stroke scale is 5 - s/p tPA given at 0300 on 01/01 - CT head on 01/01 at 0100 was negative. - MRI brain showing acute small right parietal infarct with no hemorrhage, midline shift, or mass effect - continue permissive hypertension to systolic 160-180s x 24 hours - MRA brain and neck without contrast showing attenuated appearance of the distal right middle cerebral artery likely due to technical issues. Also with short segment stenotic appearance of the right proximal ICA, cannot exclude high -grade stenosis. - carotid U/S negative - repeat CT with no bleed, showing acute infarct. also with some corresponding edema without significant mass effect --> start HSQ - ECHO with doppler showing 25-30% EF, pulmonary hypertension, and left ventricular hypokinesis - bilateral venous duplex negative - check lipid panel and A1c - ST/PT/OT eval - Passed swallow eval, on pureed. video swallow study to be done today - neurochecks q4hr - LDL 83. Start lipitor 80mg qhs - will start ASA 81mg after defibb placement #Acute asthma exacerbation - prednisone 40mg PO qd x 5 days - duonebs ATC q6hr - ABGs #Sepsis, unknown etiology - ID consulted, appreciate rec's - IV CTX and flagyl per ID - CXR negative. Repeat CXR negative - f/u urine cx - f/u blood cx - trend CBC, downtrending. Will discuss with ID about dc'ing abx as there is no source found #Acute on chronic systolic CHF / severe cardiomyopathy - cardiology consulted, appreciate rec's - strict I&O - 1.5 L fluid restriction - lasix 80mg IV BID - permissive HTN with systolic 160-180s given acute CVA till 01/02 - dobutamine gtt - s/p PICC line 01/03 - EF 25-30% - cardiology recommending defibrillator placement. Discussed risks/benefits with family. Family agreeable. Cleared per neurology. #FIONA due to cardiorenal syndrome - nephrology consulted, appreciate rec's - trend Cr - check urine lytes - consider renal ultrasound - avoid IVF given CHF exacerbation #Hypokalemia - replete electrolytes prn. monitor BMP and Mg #HLD - start lipitor 80mg #Prediabetes - A1c 6.2 - will start MURIEL for now - if Cr stabilizes, will discharge patient on metformin/glipizide DVT ppx: HSQ Discussed case in detail with nursing staff, cardiology, nephrology, neurology, ID, transfer center, patient, and family. Case d/w Dr. Holliday/Dr. Quintero who agrees to the plan above. Disposition: ARU vs. SNF vs. home with home health I spent a total of 43 minutes on this patient's case with greater than 50% spent on care and coordination of the patient. Subjective Date patient seen: January 04, 2018 Time patient seen: 10:00 Allergies: Coded Allergies: No Known Allergies (Unverified , 01/09/14) Subjective - no acute events overnight - CT head repeat showed the right parietal infarct but no bleed. - s/p PICC line - CXR negative - Cr. downtrending. WBC downtrending - family at bedside. patient agreeable to proceed with defibb placement Objective Last 24 Hour Vital Signs Date Time Temp Pulse Resp B/P (MAP) Pulse Ox O2 Delivery O2 Flow Rate FiO2 01/04/18 14:36 148/78 01/04/18 14:02 Room Air 01/04/18 14:01 Room Air 01/04/18 14:00 74 18 148/78 95 Room Air 01/04/18 12:17 135/70 01/04/18 12:00 78 01/04/18 11:57 98.3 76 18 135/70 95 Room Air 98.3 01/04/18 10:31 80 20 151/72 98 Room Air 01/04/18 09:52 93 112/64 01/04/18 08:00 97.5 80 25 163/109 96 Room Air 97.5 01/04/18 08:00 80 01/04/18 07:40 Room Air 01/04/18 07:40 Room Air 01/04/18 05:54 135/83 01/04/18 05:53 135/83 01/04/18 04:41 70 01/04/18 04:00 97.8 72 20 136/78 96 Room Air 97.8 01/04/18 01:20 75 16 99 Room Air 21 01/04/18 01:12 73 18 98 Room Air 21 01/04/18 00:00 76 01/04/18 00:00 97.2 76 18 137/72 98 Room Air 97.2 01/03/18 23:45 137/72 01/03/18 21:01 136/76 5/21/18 21:00 77 136/76 01/03/18 20:00 97.4 77 22 136/76 100 Room Air 97.4 01/03/18 19:33 79 16 99 Room Air 21 01/03/18 19:27 70 01/03/18 19:24 71 18 97 Room Air 21 01/03/18 17:28 118/52 01/03/18 16:00 79 01/03/18 16:00 97.4 76 20 147/83 97 Room Air 97.4 01/03/18 15:33 125/68 Intake and Output 01/03/18 01/04/18 19:00 07:00 Intake Total 622.48 ml 431.36 ml Output Total 2000 ml 3500 ml Balance -1377.52 ml -3068.64 ml Intake Oral 150 ml IV Total 622.48 ml 281.36 ml Output Urine Total 2000 ml 3500 ml Laboratory Tests 01/04/18 05:00: White Blood Count 11.2H, Red Blood Count 4.48L, Hemoglobin 13.3L, Hematocrit 40.1L, Mean Corpuscular Volume 89, Mean Corpuscular Hemoglobin 29.6, Mean Corpuscular Hemoglobin Concent 33.2, Red Cell Distribution Width 15.3H, Platelet Count 121L, Mean Platelet Volume 10.7H, Neutrophils (%) (Auto) , Lymphocytes (%) (Auto) , Monocytes (%) (Auto) , Eosinophils (%) (Auto) , Basophils (%) (Auto) , Differential Total Cells Counted 100, Neutrophils % ( Manual) 86H, Lymphocytes % (Manual) 8L, Monocytes % (Manual) 6, Eosinophils % ( Manual) 0, Basophils % (Manual) 0, Band Neutrophils 0, Platelet Estimate DecreasedL, Platelet Morphology Normal, Red Blood Cell Morphology Normal, Sodium Level 143, Potassium Level 3.2L, Chloride Level 101, Carbon Dioxide Level 33H, Anion Gap 9, Blood Urea Nitrogen 39H, Creatinine 2.6H, Estimat Glomerular Filtration Rate , Glucose Level 128H, Calcium Level 8.2L, Phosphorus Level 4.0, Magnesium Level 1.9, Total Bilirubin 1.0, Aspartate Amino Transf (AST /SGOT) 26, Alanine Aminotransferase (ALT/SGPT) 31, Alkaline Phosphatase 61, Total Protein 6.3L, Albumin 2.7L, Globulin 3.6, Albumin/Globulin Ratio 0.8L Height (Feet): 5 Height (Inches): 10.00 Weight (Pounds): 165 General Appearance: no apparent distress, alert EENT: PERRL/EOMI, normal ENT inspection Neck: non-tender, normal alignment, supple Cardiovascular: normal peripheral pulses, normal rate, regular rhythm Respiratory/Chest: chest wall non-tender, lungs clear, normal breath sounds Abdomen: normal bowel sounds, non tender, soft Edema: moderate edema 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
[2018-01-04] MEDS: cefTRIAXone 1 GM in D5W 110 ML IVPB SCH (16:53)
[2018-01-04] MEDS: NovoLOG Insulin Flexpen SUBQ SCH ×2 (17:00→21:12)
--- NOTE | 2018-01-04 17:06 | Cardiac Electrophysiology PN ---
Assessment/Plan Assessment/Plan 1. 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 Decrease Lasix 60 mg IV b.i.d., Coreg 3.125 mg b.i.d., hydralazine 50 mg every eight hours , Isordil 10 mg every 6 hours. Decrease dobutamine to 2mc/kg /min Will proceed with defibrillator implantation on Wednesday if OK with ID and will taper off Dobutamine by then. He does not meet criteria for cardiac resynchronization therapy as his QRS duration is less than 120 milliseconds. 2. Renal failure. Mildly improved from 3.7 to 2.[address]. Evaluation by Dr. Dennis on low-dose dobutamine. 3. Elevated liver function tests likely due to right heart failure and hepatic congestion. 4[place] [address], could be due to urinary tract infection. On Levaquin. SALINAS RN Subjective Subjective Feeling better. On Dobutamine 3 mcg/min and Lasix 80 iv bid. Objective Last 24 Hour Vital Signs Date Time Temp Pulse Resp B/P (MAP) Pulse Ox O2 Delivery O2 Flow Rate FiO2 01/04/18 14:36 148/78 01/04/18 14:02 Room Air 01/04/18 14:01 Room Air 01/04/18 14:00 74 18 148/78 95 Room Air 01/04/18 12:17 135/70 01/04/18 12:00 78 01/04/18 11:57 98.3 76 18 135/70 95 Room Air 98.3 01/04/18 10:31 80 20 151/72 98 Room Air 01/04/18 09:52 93 112/64 01/04/18 08:00 97.5 80 25 163/109 96 Room Air 97.5 01/04/18 08:00 80 01/04/18 07:40 Room Air 01/04/18 07:40 Room Air 01/04/18 05:54 135/83 01/04/18 05:53 135/83 01/04/18 04:41 70 01/04/18 04:00 97.8 72 20 136/78 96 Room Air 97.8 01/04/18 01:20 75 16 99 Room Air 21 01/04/18 01:12 73 18 98 Room Air 21 01/04/18 00:00 76 01/04/18 00:00 97.2 76 18 137/72 98 Room Air 97.2 01/03/18 23:45 137/72 01/03/18 21:01 136/76 01/03/18 21:00 77 136/76 01/03/18 20:00 97.4 77 22 136/76 100 Room Air 97.4 01/03/18 19:33 79 16 99 Room Air 21 01/03/18 19:27 70 01/03/18 19:24 71 18 97 Room Air 21 01/03/18 17:28 118/52 Intake and Output 01/03/18 01/04/18 19:00 07:00 Intake Total 622.48 ml 431.36 ml Output Total 2000 ml 3500 ml Balance -1377.52 ml -3068.64 ml Intake Oral 150 ml IV Total 622.48 ml 281.36 ml Output Urine Total 2000 ml 3500 ml Laboratory Tests Test 01/04/18 05:00 White Blood Count 11.2 K/UL (4.8-10.8) H Red Blood Count 4.48 M/UL (4.70-6.10) L Hemoglobin 13.3 G/DL (14.2-18.0) L Hematocrit 40.1 % (42.0-52.0) L Mean Corpuscular Volume 89 FL (80-99) Mean Corpuscular Hemoglobin 29.6 PG (27.0-31.0) Mean Corpuscular Hemoglobin Concent 33.2 G/DL (32.0-36.0) Red Cell Distribution Width 15.3 % (11.6-14.8) H Platelet Count 121 K/UL (150-450) L Mean Platelet Volume 10.7 FL (6.5-10.1) H Neutrophils (%) (Auto) % (45.0-75.0) Lymphocytes (%) (Auto) % (20.0-45.0) Monocytes (%) (Auto) % (1.0-10.0) Eosinophils (%) (Auto) % (0.0-3.0) Basophils (%) (Auto) % (0.0-2.0) Differential Total Cells Counted 100 Neutrophils % (Manual) 86 % (45-75) H Lymphocytes % (Manual) 8 % (20-45) L Monocytes % (Manual) 6 % (1-10) Eosinophils % (Manual) 0 % (0-3) Basophils % (Manual) 0 % (0-2) Band Neutrophils 0 % (0-8) Platelet Estimate Decreased L Platelet Morphology Normal Red Blood Cell Morphology Normal Sodium Level 143 MMOL/L (136-145) Potassium Level 3.2 MMOL/L (3.5-5.1) L Chloride Level 101 MMOL/L (98-107) Carbon Dioxide Level 33 MMOL/L (21-32) H Anion Gap 9 mmol/L (5-15) Blood Urea Nitrogen 39 mg/dL (7-18) H Creatinine 2.6 MG/DL (0.55-1.30) H Estimat Glomerular Filtration Rate mL/min (>60) Glucose Level 128 MG/DL (74-106) H Calcium Level 8.2 MG/DL (8.5-10.1) L Phosphorus Level 4.0 MG/DL (2.5-4.9) Magnesium Level 1.9 MG/DL (1.8-2.4) Total Bilirubin 1.0 MG/DL (0.2-1.0) Aspartate Amino Transf (AST/SGOT) 26 U/L (15-37) Alanine Aminotransferase (ALT/SGPT) 31 U/L (12-78) Alkaline Phosphatase 61 U/L (46-116) Total Protein 6.3 G/DL (6.4-8.2) L Albumin 2.7 G/DL (3.4-5.0) L Globulin 3.6 g/dL Albumin/Globulin Ratio 0.8 (1.0-2.7) L Objective HEAD AND NECK: Positive JVD. LUNGS: Decreased breath sounds. CARDIOVASCULAR: Regular S1 and S2 with no gallop or murmur. ABDOMEN: Soft. EXTREMITIES: 2+ pitting edema. Andre Howard MD January 04, 2018 17:06
--- NOTE | 2018-01-04 17:57 | Neurology Progress Note ---
Interim History Interim History Interim History Mr. Winslow feels better. His left side is stronger today. He is also able to see better today. He has more control over his left sided movements. He has noted no new neurologic symptoms. Review of Systems Neuro Review of Systems Benign. Objective Physical Exam Last Vital Signs Date Time Temp Pulse Resp B/P (MAP) Pulse Ox O2 Delivery O2 Flow Rate FiO2 01/04/18 14:36 148/78 01/04/18 14:02 Room Air 01/04/18 14:00 74 18 95 01/04/18 11:57 98.3 98.3 01/04/18 01:20 21 Laboratory Tests Test 01/04/18 05:00 White Blood Count 11.2 K/UL (4.8-10.8) H Red Blood Count 4.48 M/UL (4.70-6.10) L Hemoglobin 13.3 G/DL (14.2-18.0) L Hematocrit 40.1 % (42.0-52.0) L Mean Corpuscular Volume 89 FL (80-99) Mean Corpuscular Hemoglobin 29.6 PG (27.0-31.0) Mean Corpuscular Hemoglobin Concent 33.2 G/DL (32.0-36.0) Red Cell Distribution Width 15.3 % (11.6-14.8) H Platelet Count 121 K/UL (150-450) L Mean Platelet Volume 10.7 FL (6.5-10.1) H Neutrophils (%) (Auto) % (45.0-75.0) Lymphocytes (%) (Auto) % (20.0-45.0) Monocytes (%) (Auto) % (1.0-10.0) Eosinophils (%) (Auto) % (0.0-3.0) Basophils (%) (Auto) % (0.0-2.0) Differential Total Cells Counted 100 Neutrophils % (Manual) 86 % (45-75) H Lymphocytes % (Manual) 8 % (20-45) L Monocytes % (Manual) 6 % (1-10) Eosinophils % (Manual) 0 % (0-3) Basophils % (Manual) 0 % (0-2) Band Neutrophils 0 % (0-8) Platelet Estimate Decreased L Platelet Morphology Normal Red Blood Cell Morphology Normal Sodium Level 143 MMOL/L (136-145) Potassium Level 3.2 MMOL/L (3.5-5.1) L Chloride Level 101 MMOL/L (98-107) Carbon Dioxide Level 33 MMOL/L (21-32) H Anion Gap 9 mmol/L (5-15) Blood Urea Nitrogen 39 mg/dL (7-18) H Creatinine 2.6 MG/DL (0.55-1.30) H Estimat Glomerular Filtration Rate mL/min (>60) Glucose Level 128 MG/DL (74-106) H Calcium Level 8.2 MG/DL (8.5-10.1) L Phosphorus Level 4.0 MG/DL (2.5-4.9) Magnesium Level 1.9 MG/DL (1.8-2.4) Total Bilirubin 1.0 MG/DL (0.2-1.0) Aspartate Amino Transf (AST/SGOT) 26 U/L (15-37) Alanine Aminotransferase (ALT/SGPT) 31 U/L (12-78) Alkaline Phosphatase 61 U/L (46-116) Total Protein 6.3 G/DL (6.4-8.2) L Albumin 2.7 G/DL (3.4-5.0) L Globulin 3.6 g/dL Albumin/Globulin Ratio 0.8 (1.0-2.7) L Neurologic Exam Objective PHYSICAL EXAMINATION: GENERAL: He is a well-developed relatively well-nourished black gentleman, lying in bed, in no acute distress. HEAD: Normocephalic and atraumatic. NECK: No neck rigidity was observed. EENT: Examination benign. NEUROLOGICAL EXAMINATION: MENTAL STATUS EXAMINATION: He was awake and alert. He was oriented to person, place, and time. He was able to recall 3/3 words immediately after 1 minute and after 3 minutes on the second trial. He was able to remember presidents, Trump through [employer] with hints. His mathematical skills were fairly good. His visuospatial function was preserved. SPEECH: He had a mild dysarthria. LANGUAGE: He had no aphasia. CRANIAL NERVES EXAMINATION: II: The visual field were full on confrontation testing. III, IV & : External ocular movements were full and the pupils 3 mm in diameter, equal, round, regular, and reactive to light. V: He had normal facial sensations and the temporales, masseters, and pterygoids functioned normally. VII: He had left seventh central facial paresis. VIII: He was able to hear well bilaterally and had no nystagmus. IX: The palate moved symmetrically on phonation. X: He had no hoarseness of voice. XI: The sternocleidomastoids and trapezii functioned normally. XII: The tongue was in the midline without any fasciculations or atrophy. MOTOR SYSTEM: The tone was normal on the right side and diminished on the left side. Examination of muscle mass revealed no focal wasting. Examination of power revealed G 5/5 power in the right upper extremity. In the right lower extremity he also had G 5/5 power except for G 4+/5 power in the iliopsoas. On the left side, he had G 2/5 in the deltoid, G 1/5 in the biceps, G 2/5 in the triceps, G 0/5 in the wrist and fingers, G 3/5 in the hip rotators, G 2/5 in the quadriceps, hamstrings, ankle dorsiflexors and toe extensors, G 3/5 in the ankle plantar flexors and toe flexors. SENSORY EXAMINATION: He tended to neglect his left side minimally. He made errors on testing for pinprick and light touch over his entire left body. In addition, he had normal graphesthesia on the right side and agraphesthesia on the left side. REFLEXES: 1++ on the right and 0 on the left at the biceps, triceps, and brachioradialis, 1++ on the right and 2++ on the left at the knees. 0 at both ankles. The plantar response was flexor on the right and extensor on the left. COORDINATION: He performed well on [id number] testing on the right side. He was unable to perform on the left side. He was unable to perform heel-to- puri testing bilaterally. STANCE & GAIT: Could not be tested. Impression/Recommendations Diagnostic Impression 1. Mr Agnes Winslow is a 77-year-old, right-handed, black gentleman, who does have a past history of hypertension, chronic kidney disease, cardiomyopathy, severe congestive heart failure with an ejection fraction at 15% in the near past and asthma. On 01/01/2018, he suddenly developed left-sided weakness. He was brought into the [facility] emergency room, diagnosed with a left brain stroke, and given tPA. Following that he became significantly weaker on his left side, has developed left-sided neglect, and some visual problems on that side. 2. He feels much better today. His left side is stronger today. He is also able to see better today. He has more control over his left sided movements. He has noted no new neurologic symptoms. 3. On neurological examination at this time, he is fully oriented, has mild problems with memory, has a mild dysarthria, the left visual field cut on confrontation testing has resolved, he has a left seventh central facial paresis , left hemiparesis which is definitely better, right proximal lower extremity weakness, a left hemisensory deficit and agraphesthesia, loss of deep tendon reflexes in the upper extremities with a brisk left knee jerk and extensor plantar response on the left side. 4. The CT scan of the brain without contrast performed on 01/01/2018 was read as being normal. 5. An MRI scan of the brain performed on 01/01/2018 revealed "an acute small area of right parietal infarct, but no other pathology". 6. The repeat CT of the brain done on 01/03/18 revealed an acute infarct in the right frontal and temporal lobes. No associated acute hemorrhage. 7. Laboratory data obtained thus far has revealed an elevated WBC count at 13.9 , and a mild anemia with a hemoglobin of 12.2. The chemistry panel at this point reveals a low potassium at 2.9, BUN elevated to 46, creatinine elevated to 3.2, glucose elevated to 125, and hemoglobin A1c elevated to 6.2%. His lipid panel reveals a total cholesterol of 118 with an LDL of 83 and an HDL of 26. His TSH is normal at 0.39. 8. 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 Her neurologic function is improving. Recommendations 1. Continue present management. 2. Physical, occupational and speech and language therapy. 3. Await carotid duplex to evaluate the patient for hemodynamically significant extracranial carotid disease. 4. AICD placement on 01/07/18 as planned. 5. Consider acute rehabilitation. 6. ASA 81 mg q day. 7. Agree with starting lipitor with LDL goal of <70. 8. No contraindication to give heparin for DVT prophylaxis. Arun Ramirez M.D., M.S.P.H. ARUN RAMIREZ January 04, 2018 17:57
[2018-01-04] MEDS ORDERED: DOBUTamine Inj 500 MG in D5W 210 ML IV SCH ×4 (18:00)
[2018-01-04] MEDS: Dyna-Hex 2% Top Sol 2oz TOPIC SCH (19:45)
--- NOTE | 2018-01-04 20:03 | Infectious Diseases Prog Note ---
Assessment/Plan Assessment/Plan ASSESSMENT AND PLAN: 1. leukocytosis, ? sepsis, ? reactive to cva, valeria, aspiration risk, abdomen benign, ? uti, ua with 1 + le and moderate bacteria but urine culture mixed - blood cultures negative, initial chest x-ray negative x 2, urine culture mixed, leukocytosis improved - rocephin - day # 3 abx, plan on 5-7 days treatment - discontinue flagyl with neg chest x-ray - f/u on labs - d/w Diane Gresham NP - stable for defibrillator from ID standpoint as long as no fevers or recurrent leukocytosis, will be on abx rocephin 2. The patient has elevated creatinine with acute kidney injury, chronic renal failure, and anemia. 3. Acute cerebrovascular accident per history and exam + MRI noted - treatment per primary team and neurology, tpa given 4. Chronic obstructive pulmonary disease and asthma exacerbation. 5. Shortness of breath. 6. Steroids. 7. Congestive heart failure. 8. Leg edema. 9. Hypertension. 10. Blood pressure treatment per primary consultants. 11. No known allergies. 12. Social history negative. 13. Family history noncontributory. 14. MAR was noted. 15. Case discussed with RN. 16. Case discussed and communicated with Diane Silva NP for Dr. Holliday. 17. Continue treatment per primary consultants. 18. Notes and records were noted. 19. Orders were entered and communicated. 20. Case was discussed the patient's family. 21. We will follow with you. Subjective Constitutional: Denies: fever HEENT: Denies: congestion Respiratory: Denies: shortness of breath Cardiovascular: Denies: chest pain Gastrointestinal/Abdominal: Denies: nausea, vomiting, diarrhea Genitourinary: Denies: dysuria, hematuria, frequency Neurologic: Denies: headache Psychiatric: Denies: depression Skin: Denies: rash Hematologic: Denies: bleeding Musculoskeletal: Denies: pain Allergies: Coded Allergies: No Known Allergies (Unverified , 01/09/14) Objective Vital Signs Last 24 Hour Vital Signs Date Time Temp Pulse Resp B/P (MAP) Pulse Ox O2 Delivery O2 Flow Rate FiO2 01/04/18 17:50 134/80 01/04/18 16:00 98.2 82 19 134/80 97 Room Air 98.2 01/04/18 16:00 81 01/04/18 14:36 148/78 01/04/18 14:02 Room Air 01/04/18 14:01 Room Air 01/04/18 14:00 74 18 148/78 95 Room Air 01/04/18 12:17 135/70 01/04/18 12:00 78 01/04/18 11:57 98.3 76 18 135/70 95 Room Air 98.3 01/04/18 10:31 80 20 151/72 98 Room Air 01/04/18 09:52 93 112/64 01/04/18 08:00 97.5 80 25 163/109 96 Room Air 97.5 01/04/18 08:00 80 01/04/18 07:40 Room Air 01/04/18 07:40 Room Air 01/04/18 05:54 135/83 01/04/18 05:53 135/83 01/04/18 04:41 70 01/04/18 04:00 97.8 72 20 136/78 96 Room Air 97.8 01/04/18 01:20 75 16 99 Room Air 21 01/04/18 01:12 73 18 98 Room Air 21 01/04/18 00:00 76 01/04/18 00:00 97.2 76 18 137/72 98 Room Air 97.2 01/03/18 23:45 137/72 01/03/18 21:01 136/76 01/03/18 21:00 77 136/76 01/03/18 20:00 97.4 77 22 136/76 100 Room Air 97.4 Height (Feet): 5 Height (Inches): 10.00 Weight (Pounds): 165 General Appearance: no acute distress HEENT: normocephalic, atraumatic, anicteric, mucous membranes moist Respiratory/Chest: lungs clear, normal breath sounds, no respiratory distress, no accessory muscle use Cardiovascular: normal rate, regular rhythm, no gallop/murmur, no JVD Abdomen: normal bowel sounds, soft, non tender, no organomegaly, non distended Genitourinary: other - no reagan Extremities: no cyanosis Skin: no rash 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 Acute small area of right parietal infarct. No hemorrhage. No mass effect or midline shift. 2. Involutional changes with small vessel disease. Chest -x-ray - 01/01 and 01/04 - no consolidation Microbiology Date/Time Source Procedure Growth Status 01/01/18 09:05 Blood Blood Culture - Preliminary NO GROWTH AFTER 48 HOURS Resulted 01/01/18 01:15 Urine,Clean Catch Urine Culture - Final Mixed Gram Positive Organism Complete Laboratory Tests Test 01/04/18 05:00 White Blood Count 11.2 K/UL (4.8-10.8) H Red Blood Count 4.48 M/UL (4.70-6.10) L Hemoglobin 13.3 G/DL (14.2-18.0) L Hematocrit 40.1 % (42.0-52.0) L Mean Corpuscular Volume 89 FL (80-99) Mean Corpuscular Hemoglobin 29.6 PG (27.0-31.0) Mean Corpuscular Hemoglobin Concent 33.2 G/DL (32.0-36.0) Red Cell Distribution Width 15.3 % (11.6-14.8) H Platelet Count 121 K/UL (150-450) L Mean Platelet Volume 10.7 FL (6.5-10.1) H Neutrophils (%) (Auto) % (45.0-75.0) Lymphocytes (%) (Auto) % (20.0-45.0) Monocytes (%) (Auto) % (1.0-10.0) Eosinophils (%) (Auto) % (0.0-3.0) Basophils (%) (Auto) % (0.0-2.0) Differential Total Cells Counted 100 Neutrophils % (Manual) 86 % (45-75) H Lymphocytes % (Manual) 8 % (20-45) L Monocytes % (Manual) 6 % (1-10) Eosinophils % (Manual) 0 % (0-3) Basophils % (Manual) 0 % (0-2) Band Neutrophils 0 % (0-8) Platelet Estimate Decreased L Platelet Morphology Normal Red Blood Cell Morphology Normal Sodium Level 143 MMOL/L (136-145) Potassium Level 3.2 MMOL/L (3.5-5.1) L Chloride Level 101 MMOL/L (98-107) Carbon Dioxide Level 33 MMOL/L (21-32) H Anion Gap 9 mmol/L (5-15) Blood Urea Nitrogen 39 mg/dL (7-18) H Creatinine 2.6 MG/DL (0.55-1.30) H Estimat Glomerular Filtration Rate mL/min (>60) Glucose Level 128 MG/DL (74-106) H Calcium Level 8.2 MG/DL (8.5-10.1) L Phosphorus Level 4.0 MG/DL (2.5-4.9) Magnesium Level 1.9 MG/DL (1.8-2.4) Total Bilirubin 1.0 MG/DL (0.2-1.0) Aspartate Amino Transf (AST/SGOT) 26 U/L (15-37) Alanine Aminotransferase (ALT/SGPT) 31 U/L (12-78) Alkaline Phosphatase 61 U/L (46-116) Total Protein 6.3 G/DL (6.4-8.2) L Albumin 2.7 G/DL (3.4-5.0) L Globulin 3.6 g/dL Albumin/Globulin Ratio 0.8 (1.0-2.7) L Current Medications Medications (Trade) Dose Ordered Sig/Denny Route PRN Reason Start Time Stop Time Status Last Admin Dose Admin Acetaminophen (Tylenol) 650 mg Q4H PRN ORAL Mild Pain (Pain Scale 1-3) 01/02/18 04:00 01/31/18 11:59 Acetaminophen (Tylenol) 650 mg Q4H PRN ORAL T>100.5 01/02/18 04:00 01/31/18 11:59 Albuterol/ Ipratropium (Albuterol/ Ipratropium) 3 ml Q6HRT HHN 01/02/18 07:00 01/06/18 12:59 01/04/18 01:12 Allopurinol (Allopurinol) 300 mg DAILY ORAL 01/04/18 09:00 02/03/18 08:59 01/04/18 09:50 Atorvastatin Calcium (Lipitor) 80 mg BEDTIME ORAL 01/04/18 21:00 02/03/18 20:59 Carvedilol (Coreg) 3.125 mg EVERY 12 HOURS ORAL 01/02/18 09:00 01/31/18 20:59 01/04/18 09:52 Ceftriaxone Sodium 1 gm/ Dextrose 50 ml @ 100 mls/hr Q24H IVPB 01/04/18 19:45 01/11/18 19:44 UNV Ceftriaxone Sodium 1 gm/ Dextrose 110 ml @ 220 mls/hr Q24H IVPB 01/05/18 16:00 01/11/18 15:59 UNV Chlorhexidine Gluconate (Caitlin-Hex 2%) 1 applic DAILY@2000 TOPIC 01/02/18 20:00 02/01/18 19:59 01/04/18 19:45 Dextrose (Dextrose 50%) 25 ml STAT PRN IV Hypoglycemia 01/02/18 11:30 01/31/18 11:29 Dextrose (Dextrose 50%) 50 ml STAT PRN IV Hypoglycemia 01/02/18 11:30 01/31/18 11:29 Dobutamine HCl 500 mg/Dextrose 250 ml @ 4.52 mls/hr Q24H IV 01/04/18 18:00 01/31/18 17:59 01/04/18 17:43 Furosemide (Lasix) 60 mg EVERY 12 HOURS IV 01/04/18 21:00 02/03/18 20:59 Heparin Sodium (Porcine) (Heparin 5000 units/ml) 5,000 units EVERY 12 HOURS SUBQ 01/04/18 21:00 02/03/18 20:59 Heparin Sodium/ Sodium Chloride (Heparin 2000 units/Ns 1000ml premix) 2,000 unit ONCE PRN INJ PICC PLACEMENT 01/02/18 15:30 01/04/18 23:59 Hydralazine HCl (Apresoline) 50 mg Q8HR ORAL 01/02/18 06:00 01/31/18 13:59 01/04/18 14:36 Insulin Aspart (NovoLOG) BEFORE MEALS AND HS SUBQ 01/04/18 16:30 02/03/18 16:29 01/04/18 17:00 Isosorbide Dinitrate (Isordil) 10 mg Q6HR ORAL 01/02/18 06:00 01/31/18 17:59 01/04/18 17:50 Lidocaine HCl (Xylocaine 1% 30ml) 30 ml ONCE PRN INJ PICC PLACEMENT 01/02/18 15:30 01/04/18 23:59 Lorazepam (Ativan) 1 mg Q4H PRN ORAL For Anxiety 01/02/18 03:30 01/08/18 11:29 Morphine Sulfate (Morphine Sulfate) 4 mg Q6H PRN IVP Severe Pain (Pain Scale 7-10) 01/02/18 05:30 01/08/18 11:29 Olanzapine (ZyPREXA) 2.5 mg HSPRN PRN ORAL Agitation 01/03/18 13:30 02/02/18 13:29 Ondansetron HCl (Zofran) 4 mg Q6H PRN IVP Nausea & Vomiting 01/02/18 05:30 01/31/18 11:29 Pantoprazole (Protonix) 40 mg EVERY 12 HOURS ORAL 01/02/18 09:00 01/31/18 20:59 01/04/18 09:53 Potassium Chloride (K-Dur) 40 meq TID ORAL 01/04/18 13:00 02/02/18 09:29 01/04/18 17:49 Prednisone (predniSONE) 40 mg DAILY ORAL 01/02/18 09:00 02/01/18 08:59 01/04/18 09:52 Tamsulosin HCl (Flomax) 0.4 mg BID ORAL 01/02/18 09:00 01/31/18 13:14 01/04/18 17:50 MARIUM VIGIL January 04, 2018 20:03
[2018-01-04] MEDS: Atorvastatin 80mg tab ORAL SCH (21:08)
[2018-01-04] MEDS: Heparin 5000 units/ml inj SUBQ SCH (21:11)
--- NOTE | 2018-01-04 23:16 | General Progress Note ---
Assessment/Plan Status: stable, progressing Assessment/Plan -ativan prn -zyprexa prn encephalopathy resolved Subjective Date patient seen: January 04, 2018 Neurologic/Psychiatric: Reports: anxiety Allergies: Coded Allergies: No Known Allergies (Unverified , 01/09/14) Subjective the pt is doing better more alert Objective Last 24 Hour Vital Signs Date Time Temp Pulse Resp B/P (MAP) Pulse Ox O2 Delivery O2 Flow Rate FiO2 01/04/18 21:33 135/77 01/04/18 21:09 76 129/80 01/04/18 20:01 Room Air 01/04/18 20:00 Room Air 01/04/18 17:50 134/80 01/04/18 16:00 98.2 82 19 134/80 97 Room Air 98.2 01/04/18 16:00 81 01/04/18 14:36 148/78 01/04/18 14:02 Room Air 01/04/18 14:01 Room Air 01/04/18 14:00 74 18 148/78 95 Room Air 01/04/18 12:17 135/70 01/04/18 12:00 78 01/04/18 11:57 98.3 76 18 135/70 95 Room Air 98.3 01/04/18 10:31 80 20 151/72 98 Room Air 01/04/18 09:52 93 112/64 01/04/18 08:00 97.5 80 25 163/109 96 Room Air 97.5 01/04/18 08:00 80 01/04/18 07:40 Room Air 01/04/18 07:40 Room Air 01/04/18 05:54 135/83 01/04/18 05:53 135/83 01/04/18 04:41 70 01/04/18 04:00 97.8 72 20 136/78 96 Room Air 97.8 01/04/18 01:20 75 16 99 Room Air 21 01/04/18 01:12 73 18 98 Room Air 21 01/04/18 00:00 76 01/04/18 00:00 97.2 76 18 137/72 98 Room Air 97.2 01/03/18 23:45 137/72 Intake and Output 01/03/18 01/04/18 19:00 07:00 Intake Total 622.48 ml 431.36 ml Output Total 2000 ml 3500 ml Balance -1377.52 ml -3068.64 ml Intake Oral 150 ml IV Total 622.48 ml 281.36 ml Output Urine Total 2000 ml 3500 ml Laboratory Tests 01/04/18 05:00: White Blood Count 11.2H, Red Blood Count 4.48L, Hemoglobin 13.3L, Hematocrit 40.1L, Mean Corpuscular Volume 89, Mean Corpuscular Hemoglobin 29.6, Mean Corpuscular Hemoglobin Concent 33.2, Red Cell Distribution Width 15.3H, Platelet Count 121L, Mean Platelet Volume 10.7H, Neutrophils (%) (Auto) , Lymphocytes (%) (Auto) , Monocytes (%) (Auto) , Eosinophils (%) (Auto) , Basophils (%) (Auto) , Differential Total Cells Counted 100, Neutrophils % ( Manual) 86H, Lymphocytes % (Manual) 8L, Monocytes % (Manual) 6, Eosinophils % ( Manual) 0, Basophils % (Manual) 0, Band Neutrophils 0, Platelet Estimate DecreasedL, Platelet Morphology Normal, Red Blood Cell Morphology Normal, Sodium Level 143, Potassium Level 3.2L, Chloride Level 101, Carbon Dioxide Level 33H, Anion Gap 9, Blood Urea Nitrogen 39H, Creatinine 2.6H, Estimat Glomerular Filtration Rate , Glucose Level 128H, Calcium Level 8.2L, Phosphorus Level 4.0, Magnesium Level 1.9, Total Bilirubin 1.0, Aspartate Amino Transf (AST /SGOT) 26, Alanine Aminotransferase (ALT/SGPT) 31, Alkaline Phosphatase 61, Total Protein 6.3L, Albumin 2.7L, Globulin 3.6, Albumin/Globulin Ratio 0.8L Height (Feet): 5 Height (Inches): 10.00 Weight (Pounds): 165 General Appearance: WD/WN, no apparent distress, alert Neurologic: oriented x 3, responsive, depressed affect Ralph Alva M.D. January 04, 2018 23:16
[2018-01-05] VITALS: BP 143/79
[2018-01-05] MEDS: Albuterol/Ipratropium 3ml neb HHN SCH ×4 (00:48→20:37)
[2018-01-05 04:00] VITALS: BP 113/69
[2018-01-05 04:48] LABS: HEMATOCRIT 44.4 % (42.0-52.0); HEMOGLOBIN 14.3 G/DL (14.2-18.0); MEAN CORPUSCULAR VOLUME 91 FL (80-99); PLATELET COUNT 121 K/UL (150-450); WHITE BLOOD COUNT 13.6 K/UL (4.8-10.8)
[2018-01-05 04:58] LABS: ANION GAP 6 mmol/L (5-15); BLOOD UREA NITROGEN 36 mg/dL (7-18); CALCIUM 8.4 MG/DL (8.5-10.1); CARBON DIOXIDE 35 MMOL/L (21-32); CHLORIDE 101 MMOL/L (98-107); CREATININE 2.4 MG/DL (0.55-1.30); POTASSIUM 3.9 MMOL/L (3.5-5.1); SODIUM 142 MMOL/L (136-145)
[2018-01-05 05:03] LABS: INR 1.3 (0.9-1.1)
[2018-01-05] MEDS: HydrALAZINE 50mg tab ORAL SCH ×3 (05:41→21:34)
[2018-01-05] MEDS: NovoLOG Insulin Flexpen SUBQ SCH ×4 (06:09→21:42)
[2018-01-05 08:00] VITALS: BP 130/70
[2018-01-05] MEDS: Tamsulosin 0.4mg cap ORAL SCH ×2 (09:53→17:36)
[2018-01-05] MEDS: Heparin 5000 units/ml inj SUBQ SCH ×2 (09:57→21:41)
--- NOTE | 2018-01-05 11:50 | General Progress Note ---
Assessment/Plan Assessment/Plan ASSESSMENT AND RECOMMENDATION: 1. Thrombocytopenia, potentially secondary to underlying medications. Has been seen by Cardiology Service, meds have been reviewed. --> Also can be 2/2 sepsis, most recently on pressor --> hepatitis and hiv have been ordered/pending --> US of the abdomen is pending, to r/o hsm and cirrhosis 2. Anemia due to underlying chronic disease. Continue to closely monitor. --> at this time, hold off on extensive workup unless hgb less than 10 3. Leukocytosis. Likely related to underlying ID issue. Continue antibiotics as per primary team and Infectious Disease. --> abx as per primary team 4. Acute cerebrovascular accident, noted on MRI. Further management per neurology 5. Shortness of breath . 6. Sepsis 7. Hypertension. Elevated blood pressure. --> further management per cards Subjective Constitutional: Denies: no symptoms, chills, diaphoresis, fever, malaise, weakness, other Cardiovascular: Denies: no symptoms, chest pain, edema, irregular heart rate, lightheadedness, palpitations, syncope, other Respiratory: Denies: no symptoms, cough, orthopnea, shortness of breath, SOB with excertion, SOB at rest, sputum, stridor, wheezing, other Gastrointestinal/Abdominal: Denies: no symptoms, abdomen distended, abdominal pain, black stools, tarry stools, blood in stool, constipated, diarrhea, difficulty swallowing, nausea, poor appetite, poor fluid intake, rectal bleeding , vomiting, other Genitourinary: Denies: no symptoms, burning, discharge, frequency, flank pain, hematuria, incontinence, pain, urgency, other Neurologic/Psychiatric: Denies: no symptoms, anxiety, depressed, emotional problems, headache, numbness, paresthesia, pre-existing deficit, seizure, tingling, tremors, weakness, other Endocrine: Denies: no symptoms, excessive sweating, flushing, intolerance to cold, intolerance to heat, increased hunger, increased thirst, increased urine, unexplained weight gain, unexplained weight loss, other Hematologic/Lymphatic: Denies: no symptoms, anemia, easy bleeding, easy bruising, other Allergies: Coded Allergies: No Known Allergies (Unverified , 01/09/14) Subjective no fevers or chills, remains alert, serology is pending Objective Last 24 Hour Vital Signs Date Time Temp Pulse Resp B/P (MAP) Pulse Ox O2 Delivery O2 Flow Rate FiO2 01/05/18 09:53 76 130/70 01/05/18 08:00 82 01/05/18 07:06 70 20 Room Air 21 01/05/18 06:55 69 18 92 Room Air 21 01/05/18 05:41 150/92 01/05/18 05:41 150/92 01/05/18 05:11 84 01/05/18 04:00 97.8 90 15 113/69 97 Room Air 97.8 01/05/18 00:57 70 16 97 Room Air 21 01/05/18 00:50 68 18 94 Room Air 21 01/05/18 00:00 98.0 80 22 143/79 95 Room Air 98.0 01/04/18 23:59 81 01/04/18 23:44 126/69 01/04/18 21:33 135/77 01/04/18 21:09 76 129/80 01/04/18 20:01 Room Air 01/04/18 20:00 Room Air 01/04/18 20:00 98.2 76 20 135/92 95 Room Air 98.2 01/04/18 19:07 78 01/04/18 17:50 134/80 01/04/18 16:00 98.2 82 19 134/80 97 Room Air 98.2 01/04/18 16:00 81 01/04/18 14:36 148/78 01/04/18 14:02 Room Air 01/04/18 14:01 Room Air 01/04/18 14:00 74 18 148/78 95 Room Air 01/04/18 12:17 135/70 01/04/18 12:00 78 01/04/18 11:57 98.3 76 18 135/70 95 Room Air 98.3 Intake and Output 01/04/18 01/05/18 19:00 07:00 Intake Total 369.92 ml 49.72 ml Output Total 2800 ml Balance -2430.08 ml 49.72 ml Intake Oral 120 ml IV Total 249.92 ml 49.72 ml Output Urine Total 2800 ml # Bowel Movements 1 Laboratory Tests 01/05/18 04:05: White Blood Count 13.6H, Red Blood Count 4.90, Hemoglobin 14.3, Hematocrit 44.4 , Mean Corpuscular Volume 91, Mean Corpuscular Hemoglobin 29.2, Mean Corpuscular Hemoglobin Concent 32.2, Red Cell Distribution Width 16.0H, Platelet Count 121L, Mean Platelet Volume 9.3, Neutrophils (%) (Auto) , Lymphocytes (%) (Auto) , Monocytes (%) (Auto) , Eosinophils (%) (Auto) , Basophils (%) (Auto) , Prothrombin Time 12.8H, Prothromb Time International Ratio 1.3H, Sodium Level 142, Potassium Level 3.9, Chloride Level 101, Carbon Dioxide Level 35H, Anion Gap 6, Blood Urea Nitrogen 36H, Creatinine 2.4H, Estimat Glomerular Filtration Rate , Glucose Level 155H, Calcium Level 8.4L Height (Feet): 5 Height (Inches): 10.00 Weight (Pounds): 155 General Appearance: no apparent distress EENT: normal ENT inspection Neck: normal alignment Cardiovascular: regular rhythm Respiratory/Chest: normal breath sounds Genitourinary/Rectal: heme negative stool Extremities: non-tender Edema: 1+ Leg (L), 1+ Leg (R) Neurologic: alert Skin: warm/dry Mahendra Marinelli MD January 05, 2018 11:50
[2018-01-05 12:30] VITALS: BP 138/89
--- NOTE | 2018-01-05 12:53 | General Progress Note ---
Assessment/Plan Status: stable, progressing Assessment/Plan -ativan prn -zyprexa prn encephalopathy resolved Subjective Date patient seen: January 05, 2018 Neurologic/Psychiatric: Reports: anxiety, depressed, emotional problems Allergies: Coded Allergies: No Known Allergies (Unverified , 01/09/14) Subjective the pt is doing well Objective Last 24 Hour Vital Signs Date Time Temp Pulse Resp B/P (MAP) Pulse Ox O2 Delivery O2 Flow Rate FiO2 01/05/18 12:41 138/89 01/05/18 12:30 97.4 82 20 138/89 96 Room Air 97.4 01/05/18 09:53 76 130/70 01/05/18 08:00 97.0 76 22 130/70 97 Room Air 97.0 01/05/18 08:00 82 01/05/18 07:06 70 20 Room Air 21 01/05/18 06:55 69 18 92 Room Air 21 01/05/18 05:41 150/92 01/05/18 05:41 150/92 01/05/18 05:11 84 01/05/18 04:00 97.8 90 15 113/69 97 Room Air 97.8 01/05/18 00:57 70 16 97 Room Air 21 01/05/18 00:50 68 18 94 Room Air 21 01/05/18 00:00 98.0 80 22 143/79 95 Room Air 98.0 01/04/18 23:59 81 01/04/18 23:44 126/69 01/04/18 21:33 135/77 01/04/18 21:09 76 129/80 01/04/18 20:01 Room Air 01/04/18 20:00 Room Air 01/04/18 20:00 98.2 76 20 135/92 95 Room Air 98.2 01/04/18 19:07 78 01/04/18 17:50 134/80 01/04/18 16:00 98.2 82 19 134/80 97 Room Air 98.2 01/04/18 16:00 81 01/04/18 14:36 148/78 01/04/18 14:02 Room Air 01/04/18 14:01 Room Air 01/04/18 14:00 74 18 148/78 95 Room Air Intake and Output 01/04/18 01/05/18 19:00 07:00 Intake Total 369.92 ml 49.72 ml Output Total 2800 ml Balance -2430.08 ml 49.72 ml Intake Oral 120 ml IV Total 249.92 ml 49.72 ml Output Urine Total 2800 ml # Bowel Movements 1 Laboratory Tests 01/05/18 04:05: White Blood Count 13.6H, Red Blood Count 4.90, Hemoglobin 14.3, Hematocrit 44.4 , Mean Corpuscular Volume 91, Mean Corpuscular Hemoglobin 29.2, Mean Corpuscular Hemoglobin Concent 32.2, Red Cell Distribution Width 16.0H, Platelet Count 121L, Mean Platelet Volume 9.3, Neutrophils (%) (Auto) , Lymphocytes (%) (Auto) , Monocytes (%) (Auto) , Eosinophils (%) (Auto) , Basophils (%) (Auto) , Prothrombin Time 12.8H, Prothromb Time International Ratio 1.3H, Sodium Level 142, Potassium Level 3.9, Chloride Level 101, Carbon Dioxide Level 35H, Anion Gap 6, Blood Urea Nitrogen 36H, Creatinine 2.4H, Estimat Glomerular Filtration Rate , Glucose Level 155H, Calcium Level 8.4L Height (Feet): 5 Height (Inches): 10.00 Weight (Pounds): 155 General Appearance: WD/WN, no apparent distress, alert Ralph Alva M.D. January 05, 2018 12:53
--- NOTE | 2018-01-05 13:20 | Diagnostic Imaging Report ---
APPROVED REPORT CPT Code: 44080 Vascular Symptoms CVA/TIA: Comments: Left sided weakness CAROTID (BILATERAL) - Imaging reveals no significant plaque within the right and left extracranial carotid arteries. The Doppler spectral flow analysis is within normal limits throughout the extracranial carotid arteries bilaterally. VERTEBRAL- The vertebral arteries are within normal limits.
--- NOTE | 2018-01-05 13:48 | Cardiac Electrophysiology PN ---
Assessment/Plan Assessment/Plan 1. 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 Decrease Lasix to 40 mg IV b.i.d. Decrease dobutamine to 1mc/kg /min Continue Coreg 3.125 mg b.i.d., hydralazine 50 mg every eight hours , Isordil 10 mg every 6 hours Will proceed with defibrillator implantation on Wednesday as it was OKed with ID He does not meet criteria for cardiac resynchronization therapy as his QRS duration is less than 120 milliseconds. 2. Renal failure. Mildly improved from 3.7 to 2.7. Evaluation by Dr. Dennis on low-dose dobutamine. 3. Elevated liver function tests likely due to right heart failure and hepatic congestion. 4[place] [address], could be due to urinary tract infection. On Levaquin. SALINAS RN Subjective Subjective Feeling better. On Dobutamine 2 mcg/min and Lasix 60 iv bid. ID cleared for ICD Objective Last 24 Hour Vital Signs Date Time Temp Pulse Resp B/P (MAP) Pulse Ox O2 Delivery O2 Flow Rate FiO2 01/05/18 12:41 138/89 01/05/18 12:30 97.4 82 20 138/89 96 Room Air 97.4 01/05/18 09:53 76 130/70 01/05/18 08:00 97.0 76 22 130/70 97 Room Air 97.0 01/05/18 08:00 82 01/05/18 07:29 82 01/05/18 07:06 70 20 Room Air 21 01/05/18 06:55 69 18 92 Room Air 21 01/05/18 05:41 150/92 01/05/18 05:41 150/92 01/05/18 05:11 84 01/05/18 04:00 97.8 90 15 113/69 97 Room Air 97.8 01/05/18 00:57 70 16 97 Room Air 21 01/05/18 00:50 68 18 94 Room Air 21 01/05/18 00:00 98.0 80 22 143/79 95 Room Air 98.0 01/04/18 23:59 81 01/04/18 23:44 126/69 01/04/18 21:33 135/77 01/04/18 21:09 76 129/80 01/04/18 20:01 Room Air 01/04/18 20:00 Room Air 01/04/18 20:00 98.2 76 20 135/92 95 Room Air 98.2 01/04/18 19:07 78 01/04/18 17:50 134/80 01/04/18 16:00 98.2 82 19 134/80 97 Room Air 98.2 01/04/18 16:00 81 01/04/18 14:36 148/78 01/04/18 14:02 Room Air 01/04/18 14:01 Room Air 01/04/18 14:00 74 18 148/78 95 Room Air Intake and Output 01/04/18 01/05/18 19:00 07:00 Intake Total 369.92 ml 49.72 ml Output Total 2800 ml Balance -2430.08 ml 49.72 ml Intake Oral 120 ml IV Total 249.92 ml 49.72 ml Output Urine Total 2800 ml # Bowel Movements 1 Laboratory Tests Test 01/05/18 04:05 White Blood Count 13.6 K/UL (4.8-10.8) H Red Blood Count 4.90 M/UL (4.70-6.10) Hemoglobin 14.3 G/DL (14.2-18.0) Hematocrit 44.4 % (42.0-52.0) Mean Corpuscular Volume 91 FL (80-99) Mean Corpuscular Hemoglobin 29.2 PG (27.0-31.0) Mean Corpuscular Hemoglobin Concent 32.2 G/DL (32.0-36.0) Red Cell Distribution Width 16.0 % (11.6-14.8) H Platelet Count 121 K/UL (150-450) L Mean Platelet Volume 9.3 FL (6.5-10.1) Neutrophils (%) (Auto) % (45.0-75.0) Lymphocytes (%) (Auto) % (20.0-45.0) Monocytes (%) (Auto) % (1.0-10.0) Eosinophils (%) (Auto) % (0.0-3.0) Basophils (%) (Auto) % (0.0-2.0) Prothrombin Time 12.8 SEC (9.30-11.50) H Prothromb Time International Ratio 1.3 (0.9-1.1) H Sodium Level 142 MMOL/L (136-145) Potassium Level 3.9 MMOL/L (3.5-5.1) Chloride Level 101 MMOL/L (98-107) Carbon Dioxide Level 35 MMOL/L (21-32) H Anion Gap 6 mmol/L (5-15) Blood Urea Nitrogen 36 mg/dL (7-18) H Creatinine 2.4 MG/DL (0.55-1.30) H Estimat Glomerular Filtration Rate mL/min (>60) Glucose Level 155 MG/DL (74-106) H Calcium Level 8.4 MG/DL (8.5-10.1) L Objective HEAD AND NECK: Positive JVD. LUNGS: Decreased breath sounds. CARDIOVASCULAR: Regular S1 and S2 with no gallop or murmur. ABDOMEN: Soft. EXTREMITIES: 2+ pitting edema. Andre Howard MD January 05, 2018 13:48
--- NOTE | 2018-01-05 14:12 | General Progress Note ---
Assessment/Plan Problem List: (1) CKD (chronic kidney disease) ICD Codes: N18.9 - CKD (chronic kidney disease) SNOMED: 710603820 Qualifiers: Qualified Codes: N18.9 - Chronic kidney disease, unspecified (2) HTN (hypertension) ICD Codes: I10 - HTN (hypertension) SNOMED: 46747341 (3) CHF (congestive heart failure) ICD Codes: I50.9 - CHF (congestive heart failure) SNOMED: 90586302 (4) Respiratory distress ICD Codes: R06.00 - Dyspnea, unspecified SNOMED: 122103360 (5) Dyspnea ICD Codes: R06.00 - Dyspnea, unspecified SNOMED: 765226310 (6) Asthma exacerbation ICD Codes: J45.901 - Unspecified asthma with (acute) exacerbation SNOMED: 068166658 (7) FIONA (acute kidney injury) ICD Codes: N17.9 - Acute kidney failure, unspecified SNOMED: 04709545 (8) CHF exacerbation ICD Codes: I50.9 - Heart failure, unspecified SNOMED: 63188570 Qualifiers: Qualified Codes: I50.9 - Heart failure, unspecified (9) CVA (cerebral vascular accident) ICD Codes: I63.9 - Cerebral infarction, unspecified SNOMED: 543311062 Qualifiers: Qualified Codes: I63.9 - Cerebral infarction, unspecified (10) Peripheral edema ICD Codes: R60.9 - Edema, unspecified SNOMED: 221492161 (11) Cardiomyopathy ICD Codes: I42.9 - Cardiomyopathy SNOMED: 69349405 (12) Malnutrition ICD Codes: E46 - Malnutrition SNOMED: 1846568 (13) Hypokalemia ICD Codes: E87.6 - Hypokalemia SNOMED: 53846925 (14) Prediabetes ICD Codes: R73.03 - Prediabetes SNOMED: 450429993 (15) HLD (hyperlipidemia) ICD Codes: E78.5 - Hyperlipidemia, unspecified SNOMED: 56773475 Status: stable, progressing Assessment/Plan #acute right parietal infarct - Neurology consulted, appreciate rec's - No need for transfer to stroke center at this time per neurology - NIH stroke scale last night was 2 prior to TPA. Repeat NIH stroke scale is 5 - s/p tPA given at 0300 on 01/01 - CT head on 01/01 at 0100 was negative. - MRI brain showing acute small right parietal infarct with no hemorrhage, midline shift, or mass effect - continue permissive hypertension to systolic 160-180s x 24 hours - MRA brain and neck without contrast showing attenuated appearance of the distal right middle cerebral artery likely due to technical issues. Also with short segment stenotic appearance of the right proximal ICA, cannot exclude high -grade stenosis. - carotid U/S negative - repeat CT with no bleed, showing acute infarct. also with some corresponding edema without significant mass effect --> start HSQ - ECHO with doppler showing 25-30% EF, pulmonary hypertension, and left ventricular hypokinesis - bilateral venous duplex negative - check lipid panel and A1c - ST/PT/OT eval - Passed swallow eval, on pureed. video swallow study done, f/u results - neurochecks q4hr - LDL 83. Start lipitor 80mg qhs - will start ASA 81mg after defibb placement #Acute asthma exacerbation - prednisone 40mg PO qd x 5 days (D4/5) - duonebs ATC q6hr - ABGs #Sepsis, unknown etiology - ID consulted, appreciate rec's - s/p IV CTX and flagyl. IV CTX and flagyl per ID - CXR negative. Repeat CXR negative - f/u urine cx - f/u blood cx - trend CBC - WBC uptrended from 11-->13 today likely 2/2 steroids as pt is afebrile and no e/o infection. Will check CBC with manual diff. Will continue IV CTX for now #Acute on chronic systolic CHF / severe cardiomyopathy - cardiology consulted, appreciate rec's - strict I&O - 1.5 L fluid restriction - lasix 80mg IV BID --> lasix 60 IV BID - permissive HTN with systolic 160-180s given acute CVA till 01/02 - dobutamine gtt titrated down to 2 mcg/min - s/p PICC line 01/03 - EF 25-30% - cardiology recommending defibrillator placement, scheduled for 01/07. Discussed risks/benefits with family. Family agreeable. Cleared per neurology. #FIONA due to cardiorenal syndrome - nephrology consulted, appreciate rec's - trend Cr, downtrending - check urine lytes - avoid IVF given CHF exacerbation #Hypokalemia - replete electrolytes prn. monitor BMP and Mg #HLD - start lipitor 80mg #Prediabetes - A1c 6.2 - will start MURIEL for now - if Cr stabilizes, will discharge patient on metformin/glipizide DVT ppx: HSQ Discussed case in detail with nursing staff, cardiology, nephrology, neurology, ID, transfer center, patient, and family. Case d/w Dr. Holliday/Dr. Quintero who agrees to the plan above. Disposition: ARU vs. SNF vs. home with home health I spent a total of 41 minutes on this patient's case with greater than 50% spent on care and coordination of the patient. Subjective Date patient seen: January 05, 2018 Time patient seen: 12:00 Allergies: Coded Allergies: No Known Allergies (Unverified , 01/09/14) Subjective - no acute events overnight - cleared by ID and neuro for defibb placement, scheduled for Wednesday - WBC 11 --> 13 but on steroids, afebrile - Cr 2.6 --> 2.4 - family at bedside. patient agreeable to proceed with defibb placement - AF, HDS Objective Last 24 Hour Vital Signs Date Time Temp Pulse Resp B/P (MAP) Pulse Ox O2 Delivery O2 Flow Rate FiO2 01/05/18 12:41 138/89 01/05/18 12:30 97.4 82 20 138/89 96 Room Air 97.4 01/05/18 09:53 76 130/70 01/05/18 08:00 97.0 76 22 130/70 97 Room Air 97.0 01/05/18 08:00 82 01/05/18 07:29 82 01/05/18 07:06 70 20 Room Air 21 01/05/18 06:55 69 18 92 Room Air 21 01/05/18 05:41 150/92 01/05/18 05:41 150/92 01/05/18 05:11 84 01/05/18 04:00 97.8 90 15 113/69 97 Room Air 97.8 01/05/18 00:57 70 16 97 Room Air 21 01/05/18 00:50 68 18 94 Room Air 21 01/05/18 00:00 98.0 80 22 143/79 95 Room Air 98.0 01/04/18 23:59 81 01/04/18 23:44 126/69 01/04/18 21:33 135/77 5/22/18 21:09 76 129/80 01/04/18 20:01 Room Air 01/04/18 20:00 Room Air 01/04/18 20:00 98.2 76 20 135/92 95 Room Air 98.2 01/04/18 19:07 78 01/04/18 17:50 134/80 01/04/18 16:00 98.2 82 19 134/80 97 Room Air 98.2 01/04/18 16:00 81 01/04/18 14:36 148/78 Intake and Output 01/04/18 01/05/18 19:00 07:00 Intake Total 369.92 ml 49.72 ml Output Total 2800 ml Balance -2430.08 ml 49.72 ml Intake Oral 120 ml IV Total 249.92 ml 49.72 ml Output Urine Total 2800 ml # Bowel Movements 1 Laboratory Tests 01/05/18 04:05: White Blood Count 13.6H, Red Blood Count 4.90, Hemoglobin 14.3, Hematocrit 44.4 , Mean Corpuscular Volume 91, Mean Corpuscular Hemoglobin 29.2, Mean Corpuscular Hemoglobin Concent 32.2, Red Cell Distribution Width 16.0H, Platelet Count 121L, Mean Platelet Volume 9.3, Neutrophils (%) (Auto) , Lymphocytes (%) (Auto) , Monocytes (%) (Auto) , Eosinophils (%) (Auto) , Basophils (%) (Auto) , Prothrombin Time 12.8H, Prothromb Time International Ratio 1.3H, Sodium Level 142, Potassium Level 3.9, Chloride Level 101, Carbon Dioxide Level 35H, Anion Gap 6, Blood Urea Nitrogen 36H, Creatinine 2.4H, Estimat Glomerular Filtration Rate , Glucose Level 155H, Calcium Level 8.4L Height (Feet): 5 Height (Inches): 10.00 Weight (Pounds): 155 General Appearance: no apparent distress, alert EENT: PERRL/EOMI, normal ENT inspection Neck: non-tender, normal alignment, supple Cardiovascular: normal peripheral pulses, normal rate, regular rhythm Respiratory/Chest: chest wall non-tender, lungs clear, normal breath sounds Abdomen: normal bowel sounds, non tender, soft Extremities: normal range of motion, non-tender Edema: trace edema 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
--- NOTE | 2018-01-05 14:13 | Infectious Diseases Prog Note ---
Assessment/Plan Assessment/Plan ASSESSMENT AND PLAN: 1. leukocytosis, ? sepsis, ? reactive to cva, valeria, aspiration risk, abdomen benign, ? 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 The patient has elevated creatinine with acute kidney injury, chronic renal failure, and anemia. 3. Acute cerebrovascular accident per history and exam + MRI noted - treatment per primary team and neurology, tpa given 4. Chronic obstructive pulmonary disease and asthma exacerbation. 5. Shortness of breath. 6. Steroids. 7. Congestive heart failure. 8. Leg edema. 9. Hypertension. 10. Blood pressure treatment per primary consultants. 11. No known allergies. 12. Social history negative. 13. Family history noncontributory. 14. MAR was noted. 15. Case discussed with RN. 16. Case discussed and communicated with Diane Silva NP for Dr. Holliday. 17. Continue treatment per primary consultants. 18. Notes and records were noted. 19. Orders were entered and communicated. 20. Case was discussed the patient's family. 21. We will follow with you. Subjective Constitutional: Reports: fatigue; Denies: fever Respiratory: Denies: shortness of breath Cardiovascular: Denies: chest pain Gastrointestinal/Abdominal: Denies: nausea, vomiting Genitourinary: Denies: dysuria, hematuria Neurologic: Reports: other - left sided weakness; Denies: headache Psychiatric: Denies: depression Skin: Denies: rash Hematologic: Denies: bleeding Allergies: Coded Allergies: No Known Allergies (Unverified , 01/09/14) Objective Vital Signs Last 24 Hour Vital Signs Date Time Temp Pulse Resp B/P (MAP) Pulse Ox O2 Delivery O2 Flow Rate FiO2 01/05/18 12:41 138/89 01/05/18 12:30 97.4 82 20 138/89 96 Room Air 97.4 01/05/18 09:53 76 130/70 01/05/18 08:00 97.0 76 22 130/70 97 Room Air 97.0 01/05/18 08:00 82 01/05/18 07:29 82 01/05/18 07:06 70 20 Room Air 21 01/05/18 06:55 69 18 92 Room Air 21 01/05/18 05:41 150/92 01/05/18 05:41 150/92 01/05/18 05:11 84 01/05/18 04:00 97.8 90 15 113/69 97 Room Air 97.8 01/05/18 00:57 70 16 97 Room Air 21 01/05/18 00:50 68 18 94 Room Air 21 01/05/18 00:00 98.0 80 22 143/79 95 Room Air 98.0 01/04/18 23:59 81 01/04/18 23:44 126/69 01/04/18 21:33 135/77 01/04/18 21:09 76 129/80 01/04/18 20:01 Room Air 01/04/18 20:00 Room Air 01/04/18 20:00 98.2 76 20 135/92 95 Room Air 98.2 01/04/18 19:07 78 01/04/18 17:50 134/80 01/04/18 16:00 98.2 82 19 134/80 97 Room Air 98.2 01/04/18 16:00 81 01/04/18 14:36 148/78 Height (Feet): 5 Height (Inches): 10.00 Weight (Pounds): 155 General Appearance: no acute distress HEENT: normocephalic, atraumatic, anicteric, mucous membranes moist Respiratory/Chest: lungs clear, normal breath sounds, no respiratory distress, no accessory muscle use Cardiovascular: normal rate, regular rhythm, no gallop/murmur, no JVD Abdomen: normal bowel sounds, soft, non tender, no organomegaly, non distended Genitourinary: other - + reagan Extremities: no cyanosis Skin: no rash 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 Acute small area of right parietal infarct. No hemorrhage. No mass effect or midline shift. 2. Involutional changes with small vessel disease. Chest -x-ray - 01/01 and 01/04 - no consolidation Microbiology Date/Time Source Procedure Growth Status 01/01/18 09:05 Blood Blood Culture - Preliminary NO GROWTH AFTER 72 HOURS Resulted 01/01/18 01:15 Urine,Clean Catch Urine Culture - Final Mixed Gram Positive Organism Complete Laboratory Tests Test 01/05/18 04:05 White Blood Count 13.6 K/UL (4.8-10.8) H Red Blood Count 4.90 M/UL (4.70-6.10) Hemoglobin 14.3 G/DL (14.2-18.0) Hematocrit 44.4 % (42.0-52.0) Mean Corpuscular Volume 91 FL (80-99) Mean Corpuscular Hemoglobin 29.2 PG (27.0-31.0) Mean Corpuscular Hemoglobin Concent 32.2 G/DL (32.0-36.0) Red Cell Distribution Width 16.0 % (11.6-14.8) H Platelet Count 121 K/UL (150-450) L Mean Platelet Volume 9.3 FL (6.5-10.1) Neutrophils (%) (Auto) % (45.0-75.0) Lymphocytes (%) (Auto) % (20.0-45.0) Monocytes (%) (Auto) % (1.0-10.0) Eosinophils (%) (Auto) % (0.0-3.0) Basophils (%) (Auto) % (0.0-2.0) Prothrombin Time 12.8 SEC (9.30-11.50) H Prothromb Time International Ratio 1.3 (0.9-1.1) H Sodium Level 142 MMOL/L (136-145) Potassium Level 3.9 MMOL/L (3.5-5.1) Chloride Level 101 MMOL/L (98-107) Carbon Dioxide Level 35 MMOL/L (21-32) H Anion Gap 6 mmol/L (5-15) Blood Urea Nitrogen 36 mg/dL (7-18) H Creatinine 2.4 MG/DL (0.55-1.30) H Estimat Glomerular Filtration Rate mL/min (>60) Glucose Level 155 MG/DL (74-106) H Calcium Level 8.4 MG/DL (8.5-10.1) L Current Medications Medications (Trade) Dose Ordered Sig/Denny Route PRN Reason Start Time Stop Time Status Last Admin Dose Admin Acetaminophen (Tylenol) 650 mg Q4H PRN ORAL Mild Pain (Pain Scale 1-3) 01/02/18 04:00 01/31/18 11:59 Acetaminophen (Tylenol) 650 mg Q4H PRN ORAL T>100.5 01/02/18 04:00 01/31/18 11:59 Albuterol/ Ipratropium (Albuterol/ Ipratropium) 3 ml Q6HRT HHN 01/02/18 07:00 01/06/18 12:59 01/05/18 13:43 Allopurinol (Allopurinol) 300 mg DAILY ORAL 01/04/18 09:00 02/03/18 08:59 01/05/18 09:52 Atorvastatin Calcium (Lipitor) 80 mg BEDTIME ORAL 01/04/18 21:00 02/03/18 20:59 01/04/18 21:08 Carvedilol (Coreg) 3.125 mg EVERY 12 HOURS ORAL 01/02/18 09:00 01/31/18 20:59 01/05/18 09:53 Ceftriaxone Sodium 1 gm/ Dextrose 50 ml @ 100 mls/hr Q24H IVPB 01/05/18 17:00 01/11/18 23:59 Chlorhexidine Gluconate (Caitlin-Hex 2%) 1 applic DAILY@2000 TOPIC 01/02/18 20:00 02/01/18 19:59 01/04/18 19:45 Dextrose (Dextrose 50%) 25 ml STAT PRN IV Hypoglycemia 01/02/18 11:30 01/31/18 11:29 Dextrose (Dextrose 50%) 50 ml STAT PRN IV Hypoglycemia 01/02/18 11:30 01/31/18 11:29 Dobutamine HCl 500 mg/Dextrose 250 ml @ 4.52 mls/hr Q24H IV 01/05/18 18:00 01/31/18 17:59 UNV Furosemide (Lasix) 40 mg EVERY 12 HOURS IV 01/05/18 21:00 02/03/18 20:59 UNV Heparin Sodium (Porcine) (Heparin 5000 units/ml) 5,000 units EVERY 12 HOURS SUBQ 01/04/18 21:00 02/03/18 20:59 01/05/18 09:57 Hydralazine HCl (Apresoline) 50 mg Q8HR ORAL 01/02/18 06:00 01/31/18 13:59 01/05/18 05:41 Insulin Aspart (NovoLOG) BEFORE MEALS AND HS SUBQ 01/04/18 16:30 02/03/18 16:29 01/05/18 12:32 Isosorbide Dinitrate (Isordil) 10 mg Q6HR ORAL 01/02/18 06:00 01/31/18 17:59 01/05/18 12:41 Lorazepam (Ativan) 1 mg Q4H PRN ORAL For Anxiety 01/02/18 03:30 01/08/18 11:29 Morphine Sulfate (Morphine Sulfate) 4 mg Q6H PRN IVP Severe Pain (Pain Scale 7-10) 01/02/18 05:30 01/08/18 11:29 Olanzapine (ZyPREXA) 2.5 mg HSPRN PRN ORAL Agitation 01/03/18 13:30 02/02/18 13:29 Ondansetron HCl (Zofran) 4 mg Q6H PRN IVP Nausea & Vomiting 01/02/18 05:30 01/31/18 11:29 Pantoprazole (Protonix) 40 mg EVERY 12 HOURS ORAL 01/02/18 09:00 01/31/18 20:59 01/05/18 09:52 Potassium Chloride (K-Dur) 40 meq TID ORAL 01/04/18 13:00 02/02/18 09:29 01/05/18 12:41 Prednisone (predniSONE) 40 mg DAILY ORAL 01/02/18 09:00 02/01/18 08:59 01/05/18 09:52 Tamsulosin HCl (Flomax) 0.4 mg BID ORAL 01/02/18 09:00 01/31/18 13:14 01/05/18 09:53 MARIUM VIGIL January 05, 2018 14:13
[2018-01-05] MEDS ORDERED: cefTRIAXone 1 GM in D5W 110 ML IVPB SCH (16:00)
[2018-01-05] MEDS ORDERED: DOBUTamine 250mg/250ml Premix IV SCH (16:00)
[2018-01-05 16:30] VITALS: BP 117/76
--- NOTE | 2018-01-05 16:45 | Nephrology Progress Note ---
Assessment/Plan Problem List: (1) CKD (chronic kidney disease) (2) CHF (congestive heart failure) (3) Cardiomyopathy (4) Proteinuria Assessment CKD- Cr lower chronic systolic heart failure Right heart failuer Edema due to above and possible venous insuf Non-ischemic cardiomyopathy no cad by cath 2016 History of DVT pulmonary HTN h/o Thrombocytopenia HTN Proteinuria previous echo: Severe global left ventricular hypokinesis with septal thinning. Left ventricular ejection fraction estimated to be 10-15 %. Plan mag and K supplement Optimize cardiac status, on Dobutamin monitor renal parameters Avoid nephrotoxics per orders Subjective ROS Limited/Unobtainable: No Constitutional: Reports: malaise Objective Objective Last 24 Hour Vital Signs Date Time Temp Pulse Resp B/P (MAP) Pulse Ox O2 Delivery O2 Flow Rate FiO2 01/05/18 15:39 148/84 01/05/18 14:42 148/84 01/05/18 13:29 97 16 97 Room Air 21 01/05/18 13:20 96 18 96 Room Air 21 01/05/18 12:41 138/89 01/05/18 12:30 97.4 82 20 138/89 96 Room Air 97.4 01/05/18 09:53 76 130/70 01/05/18 08:00 97.0 76 22 130/70 97 Room Air 97.0 01/05/18 08:00 82 01/05/18 07:29 82 01/05/18 07:06 70 20 Room Air 21 01/05/18 06:55 69 18 92 Room Air 21 01/05/18 05:41 150/92 01/05/18 05:41 150/92 01/05/18 05:11 84 01/05/18 04:00 97.8 90 15 113/69 97 Room Air 97.8 01/05/18 00:57 70 16 97 Room Air 21 01/05/18 00:50 68 18 94 Room Air 21 01/05/18 00:00 98.0 80 22 143/79 95 Room Air 98.0 01/04/18 23:59 81 01/04/18 23:44 126/69 01/04/18 21:33 135/77 01/04/18 21:09 76 129/80 01/04/18 20:01 Room Air 01/04/18 20:00 Room Air 01/04/18 20:00 98.2 76 20 135/92 95 Room Air 98.2 01/04/18 19:07 78 01/04/18 17:50 134/80 Intake and Output 01/04/18 01/05/18 19:00 07:00 Intake Total 369.92 ml 49.72 ml Output Total 2800 ml Balance -2430.08 ml 49.72 ml Intake Oral 120 ml IV Total 249.92 ml 49.72 ml Output Urine Total 2800 ml # Bowel Movements 1 Laboratory Tests 01/05/18 04:05: White Blood Count 13.6H, Red Blood Count 4.90, Hemoglobin 14.3, Hematocrit 44.4 , Mean Corpuscular Volume 91, Mean Corpuscular Hemoglobin 29.2, Mean Corpuscular Hemoglobin Concent 32.2, Red Cell Distribution Width 16.0H, Platelet Count 121L, Mean Platelet Volume 9.3, Neutrophils (%) (Auto) , Lymphocytes (%) (Auto) , Monocytes (%) (Auto) , Eosinophils (%) (Auto) , Basophils (%) (Auto) , Prothrombin Time 12.8H, Prothromb Time International Ratio 1.3H, Sodium Level 142, Potassium Level 3.9, Chloride Level 101, Carbon Dioxide Level 35H, Anion Gap 6, Blood Urea Nitrogen 36H, Creatinine 2.4H, Estimat Glomerular Filtration Rate , Glucose Level 155H, Calcium Level 8.4L Height (Feet): 5 Height (Inches): 10.00 Weight (Pounds): 155 General Appearance: no apparent distress Respiratory/Chest: decreased breath sounds Abdomen: soft Objective no other change BHARATHI LOVE January 05, 2018 16:45
[2018-01-05] MEDS ORDERED: cefTRIAXone 1 GM in D5W 50 ML IVPB SCH (17:00)
[2018-01-05] MEDS ORDERED: DOBUTamine Inj 500 MG in D5W 210 ML IV SCH (18:00)
--- NOTE | 2018-01-05 18:11 | Neurology Progress Note ---
Interim History Interim History Interim History Mr. Winslow feels better. His left side feel stronger. He is also able to see well on his left side. He has more control over his left sided movements. He is still neglecting the left side minimally. He has noted no new neurologic symptoms. Review of Systems Neuro Review of Systems Benign. Objective Physical Exam Last Vital Signs Date Time Temp Pulse Resp B/P (MAP) Pulse Ox O2 Delivery O2 Flow Rate FiO2 01/05/18 18:02 83 01/05/18 17:36 117/76 01/05/18 16:30 97.2 20 95 Room Air 97.2 01/05/18 13:29 21 Laboratory Tests Test 01/05/18 04:05 White Blood Count 13.6 K/UL (4.8-10.8) H Red Blood Count 4.90 M/UL (4.70-6.10) Hemoglobin 14.3 G/DL (14.2-18.0) Hematocrit 44.4 % (42.0-52.0) Mean Corpuscular Volume 91 FL (80-99) Mean Corpuscular Hemoglobin 29.2 PG (27.0-31.0) Mean Corpuscular Hemoglobin Concent 32.2 G/DL (32.0-36.0) Red Cell Distribution Width 16.0 % (11.6-14.8) H Platelet Count 121 K/UL (150-450) L Mean Platelet Volume 9.3 FL (6.5-10.1) Neutrophils (%) (Auto) % (45.0-75.0) Lymphocytes (%) (Auto) % (20.0-45.0) Monocytes (%) (Auto) % (1.0-10.0) Eosinophils (%) (Auto) % (0.0-3.0) Basophils (%) (Auto) % (0.0-2.0) Prothrombin Time 12.8 SEC (9.30-11.50) H Prothromb Time International Ratio 1.3 (0.9-1.1) H Sodium Level 142 MMOL/L (136-145) Potassium Level 3.9 MMOL/L (3.5-5.1) Chloride Level 101 MMOL/L (98-107) Carbon Dioxide Level 35 MMOL/L (21-32) H Anion Gap 6 mmol/L (5-15) Blood Urea Nitrogen 36 mg/dL (7-18) H Creatinine 2.4 MG/DL (0.55-1.30) H Estimat Glomerular Filtration Rate mL/min (>60) Glucose Level 155 MG/DL (74-106) H Calcium Level 8.4 MG/DL (8.5-10.1) L Neurologic Exam Objective PHYSICAL EXAMINATION: GENERAL: He is a well-developed relatively well-nourished black gentleman, lying in bed, in no acute distress. HEAD: Normocephalic and atraumatic. NECK: No neck rigidity was observed. EENT: Examination benign. NEUROLOGICAL EXAMINATION: MENTAL STATUS EXAMINATION: He was awake and alert. He was oriented to person, place, and time. He was able to recall 3/3 words immediately after 1 minute and after 3 minutes on the second trial. He was able to remember presidents, Trump through [employer] with hints. His mathematical skills were fairly good. His visuospatial function was preserved. SPEECH: He had a mild dysarthria. LANGUAGE: He had no aphasia. CRANIAL NERVES EXAMINATION: II: The visual field were full on confrontation testing. III, IV & : External ocular movements were full and the pupils 3 mm in diameter, equal, round, regular, and reactive to light. V: He had normal facial sensations and the temporales, masseters, and pterygoids functioned normally. VII: He had left seventh central facial paresis. VIII: He was able to hear well bilaterally and had no nystagmus. IX: The palate moved symmetrically on phonation. X: He had no hoarseness of voice. XI: The sternocleidomastoids and trapezii functioned normally. XII: The tongue was in the midline without any fasciculations or atrophy. MOTOR SYSTEM: The tone was normal on the right side and diminished on the left side. Examination of muscle mass revealed no focal wasting. Examination of power revealed G 5/5 power in the right upper extremity. In the right lower extremity he also had G 5/5 power except for G 4+/5 power in the iliopsoas. On the left side, he had G 3/5 in the deltoid, G 1/5 in the biceps, G 2/5 in the triceps, G 0/5 in the wrist and fingers, G 3/5 in the hip rotators, G 3/5 in the quadriceps, hamstrings, ankle dorsiflexors and toe extensors, G 3+/5 in the ankle plantar flexors and toe flexors. SENSORY EXAMINATION: He tended to neglect his left side minimally. He made errors on testing for pinprick and light touch over his entire left body. In addition, he had normal graphesthesia on the right side and agraphesthesia on the left side. REFLEXES: 1++ on the right and 0 on the left at the biceps, triceps, and brachioradialis, 1++ on the right and 2++ on the left at the knees. 0 at both ankles. The plantar response was flexor on the right and extensor on the left. COORDINATION: He performed well on [id number] testing on the right side. He was unable to perform on the left side. He was unable to perform heel-to- puri testing bilaterally. STANCE & GAIT: Could not be tested. Impression/Recommendations Diagnostic Impression 1. Mr Agnes Winslow is a 77-year-old, right-handed, black gentleman, who does have a past history of hypertension, chronic kidney disease, cardiomyopathy, severe congestive heart failure with an ejection fraction at 15% in the near past and asthma. On 01/01/2018, he suddenly developed left-sided weakness. He was brought into the [facility] emergency room, diagnosed with a left brain stroke, and given tPA. Following that he became significantly weaker on his left side, has developed left-sided neglect, and some visual problems on that side. 2. He feels better. His left side feel stronger. He is also able to see well on his left side. He has more control over his left sided movements. He is still neglecting the left side minimally. He has noted no new neurologic symptoms. 3. On neurological examination at this time, he is fully oriented, has mild problems with memory, has a mild dysarthria, the left visual field cut on confrontation testing has resolved, he has a left seventh central facial paresis , left hemiparesis which is definitely better, right proximal lower extremity weakness, a left hemisensory deficit and agraphesthesia, loss of deep tendon reflexes in the upper extremities with a brisk left knee jerk and extensor plantar response on the left side. 4. The CT scan of the brain without contrast performed on 01/01/2018 was read as being normal. 5. An MRI scan of the brain performed on 01/01/2018 revealed "an acute small area of right parietal infarct, but no other pathology". 6. The repeat CT of the brain done on 01/03/18 revealed an acute infarct in the right frontal and temporal lobes. No associated acute hemorrhage. 7. The carotid duplex scan was reported as being within normal limits. 8. Laboratory data obtained thus far has revealed an elevated WBC count at 13.9 , and a mild anemia with a hemoglobin of 12.2. The chemistry panel at this point reveals a low potassium at 2.9, BUN elevated to 46, creatinine elevated to 3.2, glucose elevated to 125, and hemoglobin A1c elevated to 6.2%. His lipid panel reveals a total cholesterol of 118 with an LDL of 83 and an HDL of 26. His TSH is normal at 0.39. 9. 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 His neurologic function is improving. Recommendations 1. Continue present management. 2. Physical, occupational and speech and language therapy. 3. AICD placement on 01/07/18 as planned. 4. Consider acute rehabilitation. 5. ASA 81 mg q day. 6. Agree with starting Lipitor with LDL goal of <70. 7. No contraindication to give heparin for DVT prophylaxis. Arun Lara M.D., M.S.P.ARUN SANTOS January 05, 2018 18:11
[2018-01-05 20:00] VITALS: BP 134/72
[2018-01-05] MEDS: Dyna-Hex 2% Top Sol 2oz TOPIC SCH (20:00)
[2018-01-05] MEDS: Atorvastatin 80mg tab ORAL SCH (21:35)
[2018-01-06] VITALS: BP 144/107
[2018-01-06] MEDS: Albuterol/Ipratropium 3ml neb HHN SCH ×2 (01:17→08:06)
[2018-01-06 04:00] VITALS: BP 147/95
[2018-01-06 06:14] LABS: HEMATOCRIT 46.9 % (42.0-52.0); HEMOGLOBIN 15.5 G/DL (14.2-18.0); MEAN CORPUSCULAR VOLUME 90 FL (80-99); PLATELET COUNT 139 K/UL (150-450); RED BLOOD COUNT 5.19 M/UL (4.70-6.10); RED CELL DISTRIBUTION WIDTH 15.8 % (11.6-14.8); WHITE BLOOD COUNT 18.4 K/UL (4.8-10.8)
[2018-01-06 06:28] LABS: ANION GAP 6 mmol/L (5-15); BLOOD UREA NITROGEN 34 mg/dL (7-18); CARBON DIOXIDE 33 MMOL/L (21-32); CHLORIDE 101 MMOL/L (98-107); POTASSIUM 4.7 MMOL/L (3.5-5.1); SODIUM 140 MMOL/L (136-145)
[2018-01-06] MEDS: HydrALAZINE 50mg tab ORAL SCH ×3 (06:47→21:26)
[2018-01-06] MEDS: NovoLOG Insulin Flexpen SUBQ SCH ×4 (06:49→21:32)
--- NOTE | 2018-01-06 07:01 | Diagnostic Imaging Report ---
APPROVED REPORT CPT Code: 41572 Present Symptoms Comments: BILATERAL LEGS SWELLING. BILATERAL: Imaging reveals a patent deep venous system bilaterally. There is no evidence of thrombus within the femoral, popliteal or tibial segments. The greater saphenous veins are also within normal limits. Doppler indicates normal spontaneous flow within these segments.
--- NOTE | 2018-01-06 07:47 | General Progress Note ---
Assessment/Plan Assessment/Plan ASSESSMENT AND RECOMMENDATION: 1. Thrombocytopenia, potentially secondary to underlying medications. Has been seen by Cardiology Service, meds have been reviewed. Currently in the 100-150k range --> Also can be 2/2 sepsis, most recently on pressor --> hepatitis and hiv are negative, US of the abdomen is pending, to r/o hsm and cirrhosis is negative 2. Anemia due to underlying chronic disease. Continue to closely monitor. --> at this time, hold off on extensive workup unless hgb less than 10 --> currently above 11 3. Leukocytosis. Likely related to underlying ID issue. Continue antibiotics as per primary team and Infectious Disease. --> abx as per primary team 4. Acute cerebrovascular accident, noted on MRI. Further management per neurology 5. Shortness of breath . 6. Sepsis 7. Hypertension. Elevated blood pressure. --> further management per cards Subjective Date patient seen: January 06, 2018 Constitutional: Denies: no symptoms, chills, diaphoresis, fever, malaise, weakness, other HEENT: Denies: no symptoms, eye pain, blurred vision, tearing, double vision, ear pain, ear discharge, nose pain, nose congestion, throat pain, throat swelling, mouth pain, mouth swelling, other Respiratory: Denies: no symptoms, cough, orthopnea, shortness of breath, SOB with excertion, SOB at rest, sputum, stridor, wheezing, other Genitourinary: Denies: no symptoms, burning, discharge, frequency, flank pain, hematuria, incontinence, pain, urgency, other Neurologic/Psychiatric: Denies: no symptoms, anxiety, depressed, emotional problems, headache, numbness, paresthesia, pre-existing deficit, seizure, tingling, tremors, weakness, other Endocrine: Denies: no symptoms, excessive sweating, flushing, intolerance to cold, intolerance to heat, increased hunger, increased thirst, increased urine, unexplained weight gain, unexplained weight loss, other Hematologic/Lymphatic: Denies: no symptoms, anemia, easy bleeding, easy bruising, other Allergies: Coded Allergies: No Known Allergies (Unverified , 01/09/14) Subjective no fevers or chills, remains alert, sleeping Objective Last 24 Hour Vital Signs Date Time Temp Pulse Resp B/P (MAP) Pulse Ox O2 Delivery O2 Flow Rate FiO2 01/06/18 06:48 147/95 01/06/18 06:47 147/95 01/06/18 01:17 80 20 95 Room Air 21 01/06/18 01:17 82 20 98 Room Air 21 01/06/18 00:16 86 01/06/18 00:00 97.0 86 18 144/107 95 Room Air 97.0 01/05/18 23:56 144/107 01/05/18 21:35 84 134/72 01/05/18 21:34 134/72 01/05/18 20:00 98.4 84 20 134/72 95 Room Air 98.4 01/05/18 20:00 85 20 96 Room Air 21 01/05/18 20:00 88 20 99 Room Air 21 01/05/18 19:08 83 01/05/18 18:02 83 01/05/18 17:36 117/76 01/05/18 16:30 97.2 82 20 117/76 95 Room Air 97.2 01/05/18 15:39 148/84 01/05/18 14:42 148/84 01/05/18 13:29 97 16 97 Room Air 21 01/05/18 13:20 96 18 96 Room Air 21 01/05/18 12:41 138/89 01/05/18 12:30 97.4 82 20 138/89 96 Room Air 97.4 01/05/18 12:00 87 01/05/18 09:53 76 130/70 01/05/18 08:00 97.0 76 22 130/70 97 Room Air 97.0 01/05/18 08:00 82 Intake and Output 01/05/18 01/06/18 19:00 07:00 Intake Total 1108.85 ml 33.856 ml Output Total 3500 ml Balance -2391.15 ml 33.856 ml Intake Oral 960 ml IV Total 148.85 ml 33.856 ml Output Urine Total 3500 ml # Bowel Movements 1 Laboratory Tests 01/06/18 05:00: White Blood Count 18.4H, Red Blood Count 5.19, Hemoglobin 15.5, Hematocrit 46.9 , Mean Corpuscular Volume 90, Mean Corpuscular Hemoglobin 29.8, Mean Corpuscular Hemoglobin Concent 33.1, Red Cell Distribution Width 15.8H, Platelet Count 139L, Mean Platelet Volume 10.3H, Neutrophils (%) (Auto) , Lymphocytes (%) (Auto) , Monocytes (%) (Auto) , Eosinophils (%) (Auto) , Basophils (%) (Auto) , Neutrophils % (Manual) [Pending], Lymphocytes % (Manual) [Pending], Platelet Estimate [Pending], Platelet Morphology [Pending], Sodium Level 140, Potassium Level 4.7, Chloride Level 101, Carbon Dioxide Level 33H, Anion Gap 6, Blood Urea Nitrogen 34H, Creatinine 2.0H, Estimat Glomerular Filtration Rate , Glucose Level 143H, Calcium Level 9.0 Height (Feet): 5 Height (Inches): 10.00 Weight (Pounds): 155 General Appearance: no apparent distress EENT: TMs normal Neck: supple Cardiovascular: regular rhythm Respiratory/Chest: normal breath sounds Abdomen: soft Extremities: non-tender Edema: no edema noted Leg (L), no edema noted Leg (R) Edema: mild edema Neurologic: alert Skin: warm/dry Mahendra Marinelli MD January 06, 2018 07:47
[2018-01-06 08:00] VITALS: BP 127/68
[2018-01-06] MEDS: Tamsulosin 0.4mg cap ORAL SCH ×2 (08:20→17:38)
[2018-01-06] MEDS: Heparin 5000 units/ml inj SUBQ SCH ×2 (08:23→21:28)
--- NOTE | 2018-01-06 10:59 | Nephrology Progress Note ---
Assessment/Plan Problem List: (1) CKD (chronic kidney disease) (2) CHF (congestive heart failure) (3) Cardiomyopathy (4) Proteinuria Assessment CKD- Cr lower chronic systolic heart failure Right heart failuer Edema due to above and possible venous insuf Non-ischemic cardiomyopathy no cad by cath 2016 History of DVT pulmonary HTN h/o Thrombocytopenia HTN Proteinuria previous echo: Severe global left ventricular hypokinesis with septal thinning. Left ventricular ejection fraction estimated to be 10-15 %. Plan mag and K supplement Optimize cardiac status, on Dobutamin monitor renal parameters Avoid nephrotoxics per orders Subjective ROS Limited/Unobtainable: No Constitutional: Reports: malaise Objective Objective Last 24 Hour Vital Signs Date Time Temp Pulse Resp B/P (MAP) Pulse Ox O2 Delivery O2 Flow Rate FiO2 01/06/18 08:22 70 126/73 01/06/18 08:16 87 20 99 Room Air 21 01/06/18 08:06 90 16 94 Room Air 21 01/06/18 08:00 97.0 82 20 127/68 94 Room Air 97.0 01/06/18 08:00 93 01/06/18 06:48 147/95 01/06/18 06:47 147/95 01/06/18 04:02 98 01/06/18 04:00 97.7 89 20 147/95 95 Room Air 97.7 01/06/18 01:17 80 20 95 Room Air 21 01/06/18 01:17 82 20 98 Room Air 21 01/06/18 00:16 86 01/06/18 00:00 97.0 86 18 144/107 95 Room Air 97.0 01/05/18 23:56 144/107 01/05/18 21:35 84 134/72 01/05/18 21:34 134/72 01/05/18 20:00 98.4 84 20 134/72 95 Room Air 98.4 01/05/18 20:00 85 20 96 Room Air 21 01/05/18 20:00 88 20 99 Room Air 21 01/05/18 19:08 83 01/05/18 18:02 83 01/05/18 17:36 117/76 01/05/18 16:30 97.2 82 20 117/76 95 Room Air 97.2 01/05/18 15:39 148/84 5/23/18 14:42 148/84 01/05/18 13:29 97 16 97 Room Air 21 01/05/18 13:20 96 18 96 Room Air 21 01/05/18 12:41 138/89 01/05/18 12:30 97.4 82 20 138/89 96 Room Air 97.4 01/05/18 12:00 87 Intake and Output 01/05/18 01/06/18 19:00 07:00 Intake Total 1108.85 ml 501.057 ml Output Total 3500 ml 400 ml Balance -2391.15 ml 101.057 ml Intake Oral 960 ml 450 ml IV Total 148.85 ml 51.057 ml Output Urine Total 3500 ml 400 ml # Bowel Movements 1 2 Laboratory Tests 01/06/18 05:00: White Blood Count 18.4H, Red Blood Count 5.19, Hemoglobin 15.5, Hematocrit 46.9 , Mean Corpuscular Volume 90, Mean Corpuscular Hemoglobin 29.8, Mean Corpuscular Hemoglobin Concent 33.1, Red Cell Distribution Width 15.8H, Platelet Count 139L, Mean Platelet Volume 10.3H, Neutrophils (%) (Auto) , Lymphocytes (%) (Auto) , Monocytes (%) (Auto) , Eosinophils (%) (Auto) , Basophils (%) (Auto) , Differential Total Cells Counted 100, Neutrophils % ( Manual) 89H, Lymphocytes % (Manual) 5L, Monocytes % (Manual) 6, Eosinophils % ( Manual) 0, Basophils % (Manual) 0, Band Neutrophils 0, Platelet Estimate DecreasedL, Platelet Morphology Normal, Red Blood Cell Morphology Normal, Sodium Level 140, Potassium Level 4.7, Chloride Level 101, Carbon Dioxide Level 33H, Anion Gap 6, Blood Urea Nitrogen 34H, Creatinine 2.0H, Estimat Glomerular Filtration Rate , Glucose Level 143H, Calcium Level 9.0 Height (Feet): 5 Height (Inches): 10.00 Weight (Pounds): 165 General Appearance: no apparent distress Objective no other change BHARATHI LOVE January 06, 2018 10:59
[2018-01-06 12:00] VITALS: BP 113/64
--- NOTE | 2018-01-06 14:06 | General Progress Note ---
Assessment/Plan Problem List: (1) CKD (chronic kidney disease) ICD Codes: N18.9 - CKD (chronic kidney disease) SNOMED: 238928780 Qualifiers: Qualified Codes: N18.9 - Chronic kidney disease, unspecified (2) HTN (hypertension) ICD Codes: I10 - HTN (hypertension) SNOMED: 55680909 (3) CHF (congestive heart failure) ICD Codes: I50.9 - CHF (congestive heart failure) SNOMED: 28155876 (4) Respiratory distress ICD Codes: R06.00 - Dyspnea, unspecified SNOMED: 501729637 (5) Dyspnea ICD Codes: R06.00 - Dyspnea, unspecified SNOMED: 431966542 (6) Asthma exacerbation ICD Codes: J45.901 - Unspecified asthma with (acute) exacerbation SNOMED: 959751614 (7) FIONA (acute kidney injury) ICD Codes: N17.9 - Acute kidney failure, unspecified SNOMED: 02663148 (8) CHF exacerbation ICD Codes: I50.9 - Heart failure, unspecified SNOMED: 14016209 Qualifiers: Qualified Codes: I50.9 - Heart failure, unspecified (9) CVA (cerebral vascular accident) ICD Codes: I63.9 - Cerebral infarction, unspecified SNOMED: 856390103 Qualifiers: Qualified Codes: I63.9 - Cerebral infarction, unspecified (10) Peripheral edema ICD Codes: R60.9 - Edema, unspecified SNOMED: 185888850 (11) Cardiomyopathy ICD Codes: I42.9 - Cardiomyopathy SNOMED: 33704320 (12) Malnutrition ICD Codes: E46 - Malnutrition SNOMED: 1490561 (13) Hypokalemia ICD Codes: E87.6 - Hypokalemia SNOMED: 84759667 (14) Prediabetes ICD Codes: R73.03 - Prediabetes SNOMED: 791646256 (15) HLD (hyperlipidemia) ICD Codes: E78.5 - Hyperlipidemia, unspecified SNOMED: 89699992 (16) Leukocytosis ICD Codes: D72.829 - Elevated white blood cell count, unspecified SNOMED: 167714555, 243525610 Status: stable, progressing Assessment/Plan #acute right parietal infarct - Neurology consulted, appreciate rec's - No need for transfer to stroke center at this time per neurology - NIH stroke scale last night was 2 prior to TPA. Repeat NIH stroke scale is 5 - s/p tPA given at 0300 on 01/01 - CT head on 01/01 at 0100 was negative. - MRI brain showing acute small right parietal infarct with no hemorrhage, midline shift, or mass effect - continue permissive hypertension to systolic 160-180s x 24 hours - MRA brain and neck without contrast showing attenuated appearance of the distal right middle cerebral artery likely due to technical issues. Also with short segment stenotic appearance of the right proximal ICA, cannot exclude high -grade stenosis. - carotid U/S negative - repeat CT with no bleed, showing acute infarct. also with some corresponding edema without significant mass effect --> start HSQ - ECHO with doppler showing 25-30% EF, pulmonary hypertension, and left ventricular hypokinesis - bilateral venous duplex negative - check lipid panel and A1c - ST/PT/OT eval - Passed swallow eval, on pureed. video swallow study done, f/u results - neurochecks q4hr - LDL 83. Start lipitor 80mg qhs - will start ASA 81mg after defibb placement #Acute asthma exacerbation - prednisone 40mg PO qd x 5 days (D5/5). Will dc today. - duonebs ATC q6hr - ABGs #Sepsis, unknown etiology - ID consulted, appreciate rec's - s/p IV CTX and flagyl per ID. CTX continued per ID. Flagyl dc'ed on 01/04 - CXR negative. Repeat CXR negative - trend CBC - WBC uptrended from 13-->18 today. This may be 2/2 steroids as there is no bandemia and pt is afebrile with no e/o infection. Will continue IV CTX for now. Patient has also had 5 days of prednisone, will dc today. Will dc reagan and repeat UA/UCx, CXR, blood cx x 2, and check C. diff. If worsening leukocytosis tomorrow, will hold off on defibb placement per ID. #Acute on chronic systolic CHF / severe cardiomyopathy - cardiology consulted, appreciate rec's - strict I&O - 1.5 L fluid restriction - lasix 80mg IV BID --> lasix 60 IV BID --> lasix 40mg IV BID - permissive HTN with systolic 160-180s given acute CVA till 01/02 - dobutamine gtt titrated down to 1 mcg/min - s/p PICC line 01/03 - EF 25-30% - cardiology recommending defibrillator placement, scheduled for 01/07. Discussed risks/benefits with family. Family agreeable. Cleared per neurology. #FIONA due to cardiorenal syndrome - nephrology consulted, appreciate rec's - trend Cr, downtrending - Cr 2.4 --> 2.0 - check urine lytes - avoid IVF given CHF exacerbation #Hypokalemia - replete electrolytes prn. monitor BMP and Mg #HLD - start lipitor 80mg #Prediabetes - A1c 6.2 - will start MURIEL for now - if Cr stabilizes, will discharge patient on metformin/glipizide DVT ppx: HSQ Discussed case in detail with nursing staff, cardiology, nephrology, neurology, ID, transfer center, patient, and family. Case d/w Dr. Holliday/Dr. Quintero who agrees to the plan above. Disposition: ARU vs. SNF vs. home with home health I spent a total of 41 minutes on this patient's case with greater than 50% spent on care and coordination of the patient. Subjective Date patient seen: January 06, 2018 Time patient seen: 13:58 Allergies: Coded Allergies: No Known Allergies (Unverified , 01/09/14) Subjective - no acute events overnight - wbc 13 --> 18 today with no bandemia. still on prednisone 40 qd. - states that he had a semi-formed stool this AM and last night. denies diarrhea. denies cp, sob, f/c - Cr 2.4 --> 2.0 - lasix and dobutamine gtt decreased - family at bedside - AF, HDS Objective Last 24 Hour Vital Signs Date Time Temp Pulse Resp B/P (MAP) Pulse Ox O2 Delivery O2 Flow Rate FiO2 01/06/18 08:22 70 126/73 01/06/18 08:16 87 20 99 Room Air 21 01/06/18 08:06 90 16 94 Room Air 21 01/06/18 08:00 97.0 82 20 127/68 94 Room Air 97.0 01/06/18 08:00 93 01/06/18 06:48 147/95 01/06/18 06:47 147/95 01/06/18 04:02 98 01/06/18 04:00 97.7 89 20 147/95 95 Room Air 97.7 01/06/18 01:17 80 20 95 Room Air 21 01/06/18 01:17 82 20 98 Room Air 21 01/06/18 00:16 86 01/06/18 00:00 97.0 86 18 144/107 95 Room Air 97.0 01/05/18 23:56 144/107 01/05/18 21:35 84 134/72 01/05/18 21:34 134/72 01/05/18 20:00 98.4 84 20 134/72 95 Room Air 98.4 01/05/18 20:00 85 20 96 Room Air 21 01/05/18 20:00 88 20 99 Room Air 21 01/05/18 19:08 83 01/05/18 18:02 83 01/05/18 17:36 117/76 01/05/18 16:30 97.2 82 20 117/76 95 Room Air 97.2 01/05/18 15:39 148/84 01/05/18 14:42 148/84 Intake and Output 01/05/18 01/06/18 19:00 07:00 Intake Total 1108.85 ml 501.057 ml Output Total 3500 ml 400 ml Balance -2391.15 ml 101.057 ml Intake Oral 960 ml 450 ml IV Total 148.85 ml 51.057 ml Output Urine Total 3500 ml 400 ml # Bowel Movements 1 2 Laboratory Tests 01/06/18 05:00: White Blood Count 18.4H, Red Blood Count 5.19, Hemoglobin 15.5, Hematocrit 46.9 , Mean Corpuscular Volume 90, Mean Corpuscular Hemoglobin 29.8, Mean Corpuscular Hemoglobin Concent 33.1, Red Cell Distribution Width 15.8H, Platelet Count 139L, Mean Platelet Volume 10.3H, Neutrophils (%) (Auto) , Lymphocytes (%) (Auto) , Monocytes (%) (Auto) , Eosinophils (%) (Auto) , Basophils (%) (Auto) , Differential Total Cells Counted 100, Neutrophils % ( Manual) 89H, Lymphocytes % (Manual) 5L, Monocytes % (Manual) 6, Eosinophils % ( Manual) 0, Basophils % (Manual) 0, Band Neutrophils 0, Platelet Estimate DecreasedL, Platelet Morphology Normal, Red Blood Cell Morphology Normal, Sodium Level 140, Potassium Level 4.7, Chloride Level 101, Carbon Dioxide Level 33H, Anion Gap 6, Blood Urea Nitrogen 34H, Creatinine 2.0H, Estimat Glomerular Filtration Rate , Glucose Level 143H, Calcium Level 9.0, C-Reactive Protein, Quantitative 2.4H Height (Feet): 5 Height (Inches): 10.00 Weight (Pounds): 165 General Appearance: no apparent distress, alert EENT: PERRL/EOMI, normal ENT inspection Neck: non-tender, normal alignment, supple Cardiovascular: normal peripheral pulses, normal rate, regular rhythm Respiratory/Chest: chest wall non-tender, lungs clear, normal breath sounds Abdomen: normal bowel sounds, non tender, soft Genitourinary/Rectal: other - reagan Extremities: non-tender Neurologic: music manager II-XII grossly normal, alert, oriented x 3, pronator drift, other - 3/5 strength to LUE and LLE Skin: normal pigmentation, warm/dry Diane Silva NP January 06, 2018 14:06
--- NOTE | 2018-01-06 14:54 | Diagnostic Imaging Report ---
Indication: Chest pain Comparison: 01/04/2018 A single view chest radiograph was obtained. Findings: PICC line is stable. The heart is enlarged. Lungs are hyperexpanded. IMPRESSION: No change. COPD. Cardiomegaly
--- NOTE | 2018-01-06 15:16 | Infectious Diseases Prog Note ---
Assessment/Plan Assessment/Plan ASSESSMENT AND PLAN: 1. leukocytosis, ? sepsis, ? reactive to cva, valeria, aspiration risk, abdomen benign, ? uti, ua with 1 + le and moderate bacteria but urine culture mixed - blood cultures negative, initial chest x-ray negative x 2, urine culture mixed - leukocytosis worse, pt on steroids - rocephin - day # 5 abx - repeat cultures since leukocytosis worse - f/u on labs - d/w Diane Gresham NP - stable for defibrillator from ID standpoint if leukocytosis improves and repeat cultures negative 2. The patient has elevated creatinine with acute kidney injury, chronic renal failure, and anemia. 3. Acute cerebrovascular accident per history and exam + MRI noted - treatment per primary team and neurology, tpa given 4. Chronic obstructive pulmonary disease and asthma exacerbation. 5. Shortness of breath. 6. Steroids. 7. Congestive heart failure. 8. Leg edema. 9. Hypertension. 10. Blood pressure treatment per primary consultants. 11. No known allergies. 12. Social history negative. 13. Family history noncontributory. 14. MAR was noted. 15. Case discussed with RN. 16. Case discussed and communicated with Diane Silva NP for Dr. Holliday. 17. Continue treatment per primary consultants. 18. Notes and records were noted. 19. Orders were entered and communicated. 20. Case was discussed the patient's family. 21. We will follow with you. Subjective Constitutional: Denies: fever HEENT: Denies: congestion Respiratory: Denies: shortness of breath Cardiovascular: Denies: chest pain Gastrointestinal/Abdominal: Denies: nausea, vomiting, diarrhea Genitourinary: Reports: other - + reagan Neurologic: Denies: headache Psychiatric: Denies: depression Skin: Denies: rash Hematologic: Denies: bleeding Musculoskeletal: Denies: pain Allergies: Coded Allergies: No Known Allergies (Unverified , 01/09/14) Objective Vital Signs Last 24 Hour Vital Signs Date Time Temp Pulse Resp B/P (MAP) Pulse Ox O2 Delivery O2 Flow Rate FiO2 01/06/18 13:59 126/73 01/06/18 13:58 126/73 01/06/18 12:00 97.7 84 16 113/64 100 Room Air 97.7 01/06/18 12:00 84 01/06/18 08:22 70 126/73 5/24/18 08:16 87 20 99 Room Air 21 01/06/18 08:06 90 16 94 Room Air 21 01/06/18 08:00 97.0 82 20 127/68 94 Room Air 97.0 01/06/18 08:00 93 01/06/18 06:48 147/95 01/06/18 06:47 147/95 01/06/18 04:02 98 01/06/18 04:00 97.7 89 20 147/95 95 Room Air 97.7 01/06/18 01:17 80 20 95 Room Air 21 01/06/18 01:17 82 20 98 Room Air 21 01/06/18 00:16 86 01/06/18 00:00 97.0 86 18 144/107 95 Room Air 97.0 01/05/18 23:56 144/107 01/05/18 21:35 84 134/72 01/05/18 21:34 134/72 01/05/18 20:00 98.4 84 20 134/72 95 Room Air 98.4 01/05/18 20:00 85 20 96 Room Air 21 01/05/18 20:00 88 20 99 Room Air 21 01/05/18 19:08 83 01/05/18 18:02 83 01/05/18 17:36 117/76 01/05/18 16:30 97.2 82 20 117/76 95 Room Air 97.2 01/05/18 15:39 148/84 Height (Feet): 5 Height (Inches): 10.00 Weight (Pounds): 165 General Appearance: no acute distress HEENT: normocephalic, atraumatic, anicteric, mucous membranes moist Respiratory/Chest: lungs clear, normal breath sounds, no respiratory distress, no accessory muscle use Cardiovascular: normal rate, regular rhythm, no gallop/murmur, no JVD Abdomen: normal bowel sounds, soft, non tender, no organomegaly, non distended Genitourinary: other - + reagan - urine slt cloudy Extremities: no cyanosis Skin: no rash Neurologic/Psychiatric: materials and processes manager II-XII grossly normal, alert, oriented x 3, responsive Lymphatic: no neck adenopathy Musculoskeletal: no effusion Objective MRI Brain: IMPRESSION: 1. Acute small area of right parietal infarct. No hemorrhage. No mass effect or midline shift. 2. Involutional changes with small vessel disease. Chest -x-ray - 01/01 and 01/04 - no consolidation Microbiology Date/Time Source Procedure Growth Status 01/01/18 09:05 Blood Blood Culture - Preliminary NO GROWTH AFTER 4 DAYS Resulted 01/01/18 01:15 Urine,Clean Catch Urine Culture - Final Mixed Gram Positive Organism Complete Laboratory Tests Test 01/06/18 05:00 White Blood Count 18.4 K/UL (4.8-10.8) H Red Blood Count 5.19 M/UL (4.70-6.10) Hemoglobin 15.5 G/DL (14.2-18.0) Hematocrit 46.9 % (42.0-52.0) Mean Corpuscular Volume 90 FL (80-99) Mean Corpuscular Hemoglobin 29.8 PG (27.0-31.0) Mean Corpuscular Hemoglobin Concent 33.1 G/DL (32.0-36.0) Red Cell Distribution Width 15.8 % (11.6-14.8) H Platelet Count 139 K/UL (150-450) L Mean Platelet Volume 10.3 FL (6.5-10.1) H Neutrophils (%) (Auto) % (45.0-75.0) Lymphocytes (%) (Auto) % (20.0-45.0) Monocytes (%) (Auto) % (1.0-10.0) Eosinophils (%) (Auto) % (0.0-3.0) Basophils (%) (Auto) % (0.0-2.0) Differential Total Cells Counted 100 Neutrophils % (Manual) 89 % (45-75) H Lymphocytes % (Manual) 5 % (20-45) L Monocytes % (Manual) 6 % (1-10) Eosinophils % (Manual) 0 % (0-3) Basophils % (Manual) 0 % (0-2) Band Neutrophils 0 % (0-8) Platelet Estimate Decreased L Platelet Morphology Normal Red Blood Cell Morphology Normal Sodium Level 140 MMOL/L (136-145) Potassium Level 4.7 MMOL/L (3.5-5.1) Chloride Level 101 MMOL/L (98-107) Carbon Dioxide Level 33 MMOL/L (21-32) H Anion Gap 6 mmol/L (5-15) Blood Urea Nitrogen 34 mg/dL (7-18) H Creatinine 2.0 MG/DL (0.55-1.30) H Estimat Glomerular Filtration Rate mL/min (>60) Glucose Level 143 MG/DL (74-106) H Calcium Level 9.0 MG/DL (8.5-10.1) C-Reactive Protein, Quantitative 2.4 mg/dL (0.00-0.90) H Current Medications Medications (Trade) Dose Ordered Sig/Denny Route PRN Reason Start Time Stop Time Status Last Admin Dose Admin Acetaminophen (Tylenol) 650 mg Q4H PRN ORAL Mild Pain (Pain Scale 1-3) 01/02/18 04:00 01/31/18 11:59 Acetaminophen (Tylenol) 650 mg Q4H PRN ORAL T>100.5 01/02/18 04:00 01/31/18 11:59 Allopurinol (Allopurinol) 300 mg DAILY ORAL 01/04/18 09:00 02/03/18 08:59 01/06/18 08:22 Atorvastatin Calcium (Lipitor) 80 mg BEDTIME ORAL 01/04/18 21:00 02/03/18 20:59 01/05/18 21:35 Carvedilol (Coreg) 3.125 mg EVERY 12 HOURS ORAL 01/02/18 09:00 01/31/18 20:59 01/06/18 08:22 Ceftriaxone Sodium 1 gm/ Dextrose 110 ml @ 220 mls/hr Q24H IVPB 01/06/18 17:00 01/11/18 23:59 Chlorhexidine Gluconate (Caitlin-Hex 2%) 1 applic DAILY@2000 TOPIC 01/02/18 20:00 02/01/18 19:59 01/05/18 20:00 Dextrose (Dextrose 50%) 25 ml STAT PRN IV Hypoglycemia 01/02/18 11:30 01/31/18 11:29 Dextrose (Dextrose 50%) 50 ml STAT PRN IV Hypoglycemia 01/02/18 11:30 01/31/18 11:29 Dobutamine HCl 250 ml @ 4.232 mls/ hr Q24H IV 01/05/18 16:00 02/04/18 15:59 01/05/18 15:39 Furosemide (Lasix) 40 mg EVERY 12 HOURS IV 01/05/18 21:00 02/03/18 20:59 01/06/18 08:22 Heparin Sodium (Porcine) (Heparin 5000 units/ml) 5,000 units EVERY 12 HOURS SUBQ 01/04/18 21:00 02/03/18 20:59 01/06/18 08:23 Hydralazine HCl (Apresoline) 50 mg Q8HR ORAL 01/02/18 06:00 01/31/18 13:59 01/06/18 13:59 Insulin Aspart (NovoLOG) BEFORE MEALS AND HS SUBQ 01/04/18 16:30 02/03/18 16:29 01/06/18 06:49 Isosorbide Dinitrate (Isordil) 10 mg Q6HR ORAL 01/02/18 06:00 01/31/18 17:59 01/06/18 13:58 Lorazepam (Ativan) 1 mg Q4H PRN ORAL For Anxiety 01/02/18 03:30 01/08/18 11:29 Morphine Sulfate (Morphine Sulfate) 4 mg Q6H PRN IVP Severe Pain (Pain Scale 7-10) 01/02/18 05:30 01/08/18 11:29 Olanzapine (ZyPREXA) 2.5 mg HSPRN PRN ORAL Agitation 01/03/18 13:30 02/02/18 13:29 Ondansetron HCl (Zofran) 4 mg Q6H PRN IVP Nausea & Vomiting 01/02/18 05:30 01/31/18 11:29 Pantoprazole (Protonix) 40 mg EVERY 12 HOURS ORAL 01/02/18 09:00 01/31/18 20:59 01/06/18 08:21 Potassium Chloride (K-Dur) 40 meq TID ORAL 01/04/18 13:00 02/02/18 09:29 01/06/18 13:58 Tamsulosin HCl (Flomax) 0.4 mg BID ORAL 01/02/18 09:00 01/31/18 13:14 01/06/18 08:20 MARIUM VIGIL January 06, 2018 15:16
[2018-01-06 16:00] VITALS: BP 110/69
--- NOTE | 2018-01-06 16:39 | Anethesia Preoperative Eval ---
Anesthesia Pre-op PMH/ROS General Date of Evaluation: January 06, 2018 Time of Evaluation: 16:00 ASA Score: ASA 4 Mallampati Score Class I : Soft palate, uvula, fauces, pillars visible Class II: Soft palate, uvula, fauces visible Class III: Soft palate, base of uvula visible Class IV: Only hard plate visible Mallampati Classification: Class II Anesthesia History: none Family History: no anesthesia problems Allergies: Coded Allergies: No Known Allergies (Unverified , 01/09/14) Medications: see eMAR Past Medical History Cardiovascular: Reports: HTN, other - h/o CHF; Denies: CAD, [place], valve dz, arrhythmia Pulmonary: Reports: asthma, other - h/o acute bronchospasm Gastrointestinal/Genitourinary: Reports: CRI; Denies: GERD, ESRD, other Neurologic/Psychiatric: Reports: CVA; Denies: dementia, depression/anxiety, TIA, other Endocrine: Reports: other - pre diabetes; Denies: DM, hypothyroidism, steroids HEENT: Denies: cataract (L), cataract (R), glaucoma, AKIACHAK (L), AKIACHAK (R), other Hematology/Immune: Denies: anemia, DVT, bleeding disorder, other Musculoskeletal/Integumentary: Reports: other - back pain; Denies: OA, RA, DJD, DDD, edema Anesthesia Pre-op Phys. Exam Physician Exam Last Vital Signs Date Time Temp Pulse Resp B/P (MAP) Pulse Ox O2 Delivery O2 Flow Rate FiO2 01/06/18 13:59 126/73 01/06/18 12:00 97.7 84 16 100 Room Air 97.7 01/06/18 08:16 21 Constitutional: NAD Neurologic: other - left arm weakness Respiratory: CTA Gastrointestinal: S/NT/ND Airway Exam Mallampati Score: Class II MO: full ROM: full Teeth: missing Dentures: no upper, no lower Anesthesia Pre-op A/P Labs Hematology Test 01/06/18 05:00 White Blood Count 18.4 K/UL (4.8-10.8) H Red Blood Count 5.19 M/UL (4.70-6.10) Hemoglobin 15.5 G/DL (14.2-18.0) Hematocrit 46.9 % (42.0-52.0) Mean Corpuscular Volume 90 FL (80-99) Mean Corpuscular Hemoglobin 29.8 PG (27.0-31.0) Mean Corpuscular Hemoglobin Concent 33.1 G/DL (32.0-36.0) Red Cell Distribution Width 15.8 % (11.6-14.8) H Platelet Count 139 K/UL (150-450) L Mean Platelet Volume 10.3 FL (6.5-10.1) H Neutrophils (%) (Auto) % (45.0-75.0) Lymphocytes (%) (Auto) % (20.0-45.0) Monocytes (%) (Auto) % (1.0-10.0) Eosinophils (%) (Auto) % (0.0-3.0) Basophils (%) (Auto) % (0.0-2.0) Differential Total Cells Counted 100 Neutrophils % (Manual) 89 % (45-75) H Lymphocytes % (Manual) 5 % (20-45) L Monocytes % (Manual) 6 % (1-10) Eosinophils % (Manual) 0 % (0-3) Basophils % (Manual) 0 % (0-2) Band Neutrophils 0 % (0-8) Platelet Estimate Decreased L Platelet Morphology Normal Red Blood Cell Morphology Normal Chemistry Test 01/06/18 05:00 Sodium Level 140 MMOL/L (136-145) Potassium Level 4.7 MMOL/L (3.5-5.1) Chloride Level 101 MMOL/L (98-107) Carbon Dioxide Level 33 MMOL/L (21-32) H Anion Gap 6 mmol/L (5-15) Blood Urea Nitrogen 34 mg/dL (7-18) H Creatinine 2.0 MG/DL (0.55-1.30) H Estimat Glomerular Filtration Rate mL/min (>60) Glucose Level 143 MG/DL (74-106) H Calcium Level 9.0 MG/DL (8.5-10.1) C-Reactive Protein, Quantitative 2.4 mg/dL (0.00-0.90) H Risk Assessment & Plan Assessment: ASA 4, okay to proceed Plan: MAC with sedation Shreya Madrid M.D. January 06, 2018 16:39
--- NOTE | 2018-01-06 16:57 | Cardiac Electrophysiology PN ---
Assessment/Plan Assessment/Plan 1. 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 Decrease Lasix to 40 mg IV b.i.d. DC dobutamine Continue Coreg 3.125 mg b.i.d., hydralazine 50 mg every eight hours , Isordil 10 mg every 6 hours Will proceed with defibrillator implantation tomorrow if still OK with ID since WBC jumped to 18 k. Does not meet criteria for cardiac resynchronization therapy as his QRS duration is less than 120 milliseconds. 2. Renal failure. Mildly improved from 3.7 to 2.0. F/U by Dr. Dennis 3. Elevated liver function tests likely due to right heart failure and hepatic congestion. 4. Elevated white count of 18K, could be due to steroids. Repeat CBC in am. SALINAS RN Subjective Subjective Feeling better. On Dobutamine 1 mcg/min and Lasix 40 iv bid. WBC jumped to 18.4 Objective Last 24 Hour Vital Signs Date Time Temp Pulse Resp B/P (MAP) Pulse Ox O2 Delivery O2 Flow Rate FiO2 01/06/18 13:59 126/73 01/06/18 13:58 126/73 01/06/18 12:00 97.7 84 16 113/64 100 Room Air 97.7 01/06/18 12:00 84 01/06/18 08:22 70 126/73 01/06/18 08:16 87 20 99 Room Air 21 01/06/18 08:06 90 16 94 Room Air 21 01/06/18 08:00 97.0 82 20 127/68 94 Room Air 97.0 01/06/18 08:00 93 01/06/18 06:48 147/95 01/06/18 06:47 147/95 01/06/18 04:02 98 01/06/18 04:00 97.7 89 20 147/95 95 Room Air 97.7 01/06/18 01:17 80 20 95 Room Air 21 01/06/18 01:17 82 20 98 Room Air 21 01/06/18 00:16 86 01/06/18 00:00 97.0 86 18 144/107 95 Room Air 97.0 01/05/18 23:56 144/107 01/05/18 21:35 84 134/72 01/05/18 21:34 134/72 01/05/18 20:00 98.4 84 20 134/72 95 Room Air 98.4 01/05/18 20:00 85 20 96 Room Air 21 01/05/18 20:00 88 20 99 Room Air 21 01/05/18 19:08 83 01/05/18 18:02 83 01/05/18 17:36 117/76 Intake and Output 01/05/18 01/06/18 19:00 07:00 Intake Total 1108.85 ml 501.057 ml Output Total 3500 ml 400 ml Balance -2391.15 ml 101.057 ml Intake Oral 960 ml 450 ml IV Total 148.85 ml 51.057 ml Output Urine Total 3500 ml 400 ml # Bowel Movements 1 2 Laboratory Tests Test 01/06/18 05:00 White Blood Count 18.4 K/UL (4.8-10.8) H Red Blood Count 5.19 M/UL (4.70-6.10) Hemoglobin 15.5 G/DL (14.2-18.0) Hematocrit 46.9 % (42.0-52.0) Mean Corpuscular Volume 90 FL (80-99) Mean Corpuscular Hemoglobin 29.8 PG (27.0-31.0) Mean Corpuscular Hemoglobin Concent 33.1 G/DL (32.0-36.0) Red Cell Distribution Width 15.8 % (11.6-14.8) H Platelet Count 139 K/UL (150-450) L Mean Platelet Volume 10.3 FL (6.5-10.1) H Neutrophils (%) (Auto) % (45.0-75.0) Lymphocytes (%) (Auto) % (20.0-45.0) Monocytes (%) (Auto) % (1.0-10.0) Eosinophils (%) (Auto) % (0.0-3.0) Basophils (%) (Auto) % (0.0-2.0) Differential Total Cells Counted 100 Neutrophils % (Manual) 89 % (45-75) H Lymphocytes % (Manual) 5 % (20-45) L Monocytes % (Manual) 6 % (1-10) Eosinophils % (Manual) 0 % (0-3) Basophils % (Manual) 0 % (0-2) Band Neutrophils 0 % (0-8) Platelet Estimate Decreased L Platelet Morphology Normal Red Blood Cell Morphology Normal Sodium Level 140 MMOL/L (136-145) Potassium Level 4.7 MMOL/L (3.5-5.1) Chloride Level 101 MMOL/L (98-107) Carbon Dioxide Level 33 MMOL/L (21-32) H Anion Gap 6 mmol/L (5-15) Blood Urea Nitrogen 34 mg/dL (7-18) H Creatinine 2.0 MG/DL (0.55-1.30) H Estimat Glomerular Filtration Rate mL/min (>60) Glucose Level 143 MG/DL (74-106) H Calcium Level 9.0 MG/DL (8.5-10.1) C-Reactive Protein, Quantitative 2.4 mg/dL (0.00-0.90) H Objective HEAD AND NECK: Positive JVD. LUNGS: Decreased breath sounds. CARDIOVASCULAR: Regular S1 and S2 with no gallop or murmur. ABDOMEN: Soft. EXTREMITIES: 2+ pitting edema. Andre Howard MD January 06, 2018 16:57
[2018-01-06] MEDS ORDERED: cefTRIAXone 1 GM in D5W 110 ML IVPB SCH (17:00)
[2018-01-06 20:00] VITALS: BP 128/81
[2018-01-06] MEDS: Atorvastatin 80mg tab ORAL SCH (21:25)
[2018-01-06] MEDS: Dyna-Hex 2% Top Sol 2oz TOPIC SCH (21:25)
[2018-01-07] VITALS: BP 125/79
[2018-01-07 04:00] VITALS: BP 127/76
[2018-01-07] MEDS: HydrALAZINE 50mg tab ORAL SCH ×3 (05:40→21:51)
[2018-01-07] MEDS: NovoLOG Insulin Flexpen SUBQ SCH ×4 (05:42→22:00)
[2018-01-07 05:58] LABS: HEMATOCRIT 47.9 % (42.0-52.0); MEAN CORPUSCULAR VOLUME 91 FL (80-99); PLATELET COUNT 146 K/UL (150-450); RED BLOOD COUNT 5.24 M/UL (4.70-6.10); RED CELL DISTRIBUTION WIDTH 15.8 % (11.6-14.8)
[2018-01-07 06:23] LABS: WHITE BLOOD COUNT 22.5 K/UL (4.8-10.8)
[2018-01-07 06:33] LABS: ALANINE AMINOTRANSFERASE 27 U/L (12-78); ALBUMIN 2.7 G/DL (3.4-5.0); ALBUMIN/GLOBULIN RATIO 0.7 (1.0-2.7); ALKALINE PHOSPHATASE 61 U/L (46-116); ANION GAP 8 mmol/L (5-15); ASPARTATE AMINO TRANSFERASE 28 U/L (15-37); BILIRUBIN,TOTAL 0.8 MG/DL (0.2-1.0); BLOOD UREA NITROGEN 39 mg/dL (7-18); CALCIUM 8.7 MG/DL (8.5-10.1); CARBON DIOXIDE 30 MMOL/L (21-32); CHLORIDE 104 MMOL/L (98-107); CREATININE 2.1 MG/DL (0.55-1.30); PHOSPHORUS 3.2 MG/DL (2.5-4.9); POTASSIUM 4.9 MMOL/L (3.5-5.1); SODIUM 142 MMOL/L (136-145)
--- NOTE | 2018-01-07 07:26 | General Progress Note ---
Assessment/Plan Assessment/Plan 1. Thrombocytopenia, potentially secondary to underlying medications. Has been seen by Cardiology Service, meds have been reviewed. Currently in the 100-150k range --> Also can be 2/2 sepsis, most recently on pressor --> hepatitis and hiv are negative, US of the abdomen is pending, to r/o hsm and cirrhosis is negative 2. Anemia due to underlying chronic disease. Continue to closely monitor. --> at this time, hold off on extensive workup unless hgb less than 10 --> currently above 11 3. Leukocytosis. Likely related to underlying ID issue. ? sepsis, ? reactive to cva, valeria, aspiration risk, abdomen benign, ? uti, ua with 1 + le and moderate bacteria but urine culture mixed ==> Continue antibiotics as per primary team and Infectious Disease. --> abx as per ID, antibiotics on board 4. Acute cerebrovascular accident, noted on MRI. Further management per neurology 5. Shortness of breath . 6. Sepsis 7. Hypertension. Elevated blood pressure. --> further management per cards Subjective Date patient seen: January 07, 2018 Constitutional: Denies: no symptoms, chills, diaphoresis, fever, malaise, weakness, other HEENT: Denies: no symptoms, eye pain, blurred vision, tearing, double vision, ear pain, ear discharge, nose pain, nose congestion, throat pain, throat swelling, mouth pain, mouth swelling, other Cardiovascular: Denies: no symptoms, chest pain, edema, irregular heart rate, lightheadedness, palpitations, syncope, other Respiratory: Denies: no symptoms, cough, orthopnea, shortness of breath, SOB with excertion, SOB at rest, sputum, stridor, wheezing, other Gastrointestinal/Abdominal: Denies: no symptoms, abdomen distended, abdominal pain, black stools, tarry stools, blood in stool, constipated, diarrhea, difficulty swallowing, nausea, poor appetite, poor fluid intake, rectal bleeding , vomiting, other Genitourinary: Denies: no symptoms, burning, discharge, frequency, flank pain, hematuria, incontinence, pain, urgency, other Neurologic/Psychiatric: Denies: no symptoms, anxiety, depressed, emotional problems, headache, numbness, paresthesia, pre-existing deficit, seizure, tingling, tremors, weakness, other Endocrine: Denies: no symptoms, excessive sweating, flushing, intolerance to cold, intolerance to heat, increased hunger, increased thirst, increased urine, unexplained weight gain, unexplained weight loss, other Hematologic/Lymphatic: Denies: no symptoms, anemia, easy bleeding, easy bruising, other Allergies: Coded Allergies: No Known Allergies (Unverified , 01/09/14) Subjective no fevers or chills, remains alert, sleeping Objective Last 24 Hour Vital Signs Date Time Temp Pulse Resp B/P (MAP) Pulse Ox O2 Delivery O2 Flow Rate FiO2 01/07/18 05:40 127/76 01/07/18 05:40 127/76 01/07/18 04:00 77 01/07/18 04:00 98.2 74 20 127/76 96 Room Air 98.2 01/07/18 00:06 125/79 01/07/18 00:00 98.2 82 20 125/79 96 Room Air 98.2 01/07/18 00:00 95 01/06/18 21:26 128/81 01/06/18 21:25 92 128/81 01/06/18 20:00 95 01/06/18 20:00 98.1 92 20 128/81 95 Room Air 98.1 01/06/18 17:39 126/73 01/06/18 16:00 89 01/06/18 16:00 97.5 89 22 110/69 96 Room Air 97.5 01/06/18 13:59 126/73 01/06/18 13:58 126/73 01/06/18 12:00 97.7 84 16 113/64 100 Room Air 97.7 01/06/18 12:00 84 01/06/18 08:22 70 126/73 01/06/18 08:16 87 20 99 Room Air 21 01/06/18 08:06 90 16 94 Room Air 21 01/06/18 08:00 97.0 82 20 127/68 94 Room Air 97.0 01/06/18 08:00 93 Intake and Output 01/06/18 01/07/18 19:00 07:00 Intake Total 30.261 ml Output Total 1565 ml Balance 30.261 ml -1565 ml IV Total 30.261 ml Output Urine Total 1565 ml # Bowel Movements 3 2 Laboratory Tests 01/07/18 04:00: White Blood Count 22.5*H, Red Blood Count 5.24, Hemoglobin 15.0, Hematocrit 47.9 , Mean Corpuscular Volume 91, Mean Corpuscular Hemoglobin 28.6, Mean Corpuscular Hemoglobin Concent 31.4L, Red Cell Distribution Width 15.8H, Platelet Count 146L, Mean Platelet Volume 9.2, Neutrophils (%) (Auto) , Lymphocytes (%) (Auto) , Monocytes (%) (Auto) , Eosinophils (%) (Auto) , Basophils (%) (Auto) , Neutrophils % (Manual) [Pending], Lymphocytes % (Manual) [Pending], Platelet Estimate [Pending], Platelet Morphology [Pending], Sodium Level 142, Potassium Level 4.9, Chloride Level 104, Carbon Dioxide Level 30, Anion Gap 8, Blood Urea Nitrogen 39H, Creatinine 2.1H, Estimat Glomerular Filtration Rate , Glucose Level 111H, Uric Acid 7.2, Calcium Level 8.7, Phosphorus Level 3.2, Magnesium Level 1.7L, Total Bilirubin 0.8, Aspartate Amino Transf (AST/SGOT) 28, Alanine Aminotransferase (ALT/SGPT) 27, Alkaline Phosphatase 61, Pro-B-Type Natriuretic Peptide 7303H, Total Protein 6.5, Albumin 2.7L, Globulin 3.8, Albumin/Globulin Ratio 0.7L Height (Feet): 5 Height (Inches): 10.00 Weight (Pounds): 163 General Appearance: no apparent distress EENT: TMs normal Neck: supple Cardiovascular: regular rhythm Respiratory/Chest: lungs clear Abdomen: no organomegaly Extremities: normal inspection Edema: 1+ Leg (L), 1+ Leg (R) Edema: mild edema Skin: warm/dry Mahendra Marinelli MD January 07, 2018 07:26
[2018-01-07 08:00] VITALS: BP 127/65
[2018-01-07] MEDS: Tamsulosin 0.4mg cap ORAL SCH ×2 (08:41→18:19)
[2018-01-07] MEDS: Heparin 5000 units/ml inj SUBQ SCH ×2 (08:43→21:59)
[2018-01-07] MEDS: Piperacillin/Tazobactam 2.25 GM in D5W 110 ML IVPB SCH ×3 (10:00→21:53)
[2018-01-07] MEDS ORDERED: Gastrograffin 30ml ORAL PRN (11:45)
--- NOTE | 2018-01-07 11:47 | Nephrology Progress Note ---
Assessment/Plan Problem List: (1) CKD (chronic kidney disease) (2) CHF (congestive heart failure) (3) Cardiomyopathy (4) Proteinuria Assessment rising WBCs CKD- Cr lower chronic systolic heart failure Right heart failuer Edema due to above and possible venous insuf Non-ischemic cardiomyopathy no cad by cath 2016 History of DVT pulmonary HTN h/o Thrombocytopenia HTN Proteinuria previous echo: Severe global left ventricular hypokinesis with septal thinning. Left ventricular ejection fraction estimated to be 10-15 %. Plan Per ID mag and K supplement Optimize cardiac status, on Dobutamin monitor renal parameters Avoid nephrotoxics per orders Subjective ROS Limited/Unobtainable: No Constitutional: Reports: malaise Objective Objective Last 24 Hour Vital Signs Date Time Temp Pulse Resp B/P (MAP) Pulse Ox O2 Delivery O2 Flow Rate FiO2 01/07/18 08:41 77 127/76 01/07/18 08:00 83 01/07/18 08:00 97.2 81 20 127/65 98 Room Air 97.2 01/07/18 05:40 127/76 01/07/18 05:40 127/76 01/07/18 04:00 77 01/07/18 04:00 98.2 74 20 127/76 96 Room Air 98.2 01/07/18 00:06 125/79 01/07/18 00:00 98.2 82 20 125/79 96 Room Air 98.2 01/07/18 00:00 95 01/06/18 21:26 128/81 01/06/18 21:25 92 128/81 01/06/18 20:00 95 01/06/18 20:00 98.1 92 20 128/81 95 Room Air 98.1 01/06/18 17:39 126/73 01/06/18 16:00 89 01/06/18 16:00 97.5 89 22 110/69 96 Room Air 97.5 01/06/18 13:59 126/73 01/06/18 13:58 126/73 01/06/18 12:00 97.7 84 16 113/64 100 Room Air 97.7 01/06/18 12:00 84 Intake and Output 01/06/18 01/07/18 19:00 07:00 Intake Total 30.261 ml Output Total 1565 ml Balance 30.261 ml -1565 ml IV Total 30.261 ml Output Urine Total 1565 ml # Bowel Movements 3 2 Laboratory Tests 01/07/18 04:00: White Blood Count 22.5*H, Red Blood Count 5.24, Hemoglobin 15.0, Hematocrit 47.9 , Mean Corpuscular Volume 91, Mean Corpuscular Hemoglobin 28.6, Mean Corpuscular Hemoglobin Concent 31.4L, Red Cell Distribution Width 15.8H, Platelet Count 146L, Mean Platelet Volume 9.2, Neutrophils (%) (Auto) , Lymphocytes (%) (Auto) , Monocytes (%) (Auto) , Eosinophils (%) (Auto) , Basophils (%) (Auto) , Differential Total Cells Counted 100, Neutrophils % ( Manual) 89H, Lymphocytes % (Manual) 4L, Monocytes % (Manual) 7, Eosinophils % ( Manual) 0, Basophils % (Manual) 0, Band Neutrophils 0, Platelet Estimate DecreasedL, Platelet Morphology Normal, Anisocytosis 1+, Sodium Level 142, Potassium Level 4.9, Chloride Level 104, Carbon Dioxide Level 30, Anion Gap 8, Blood Urea Nitrogen 39H, Creatinine 2.1H, Estimat Glomerular Filtration Rate , Glucose Level 111H, Uric Acid 7.2, Calcium Level 8.7, Phosphorus Level 3.2, Magnesium Level 1.7L, Total Bilirubin 0.8, Aspartate Amino Transf (AST/SGOT) 28 , Alanine Aminotransferase (ALT/SGPT) 27, Alkaline Phosphatase 61, Pro-B-Type Natriuretic Peptide 7303H, Total Protein 6.5, Albumin 2.7L, Globulin 3.8, Albumin/Globulin Ratio 0.7L Height (Feet): 5 Height (Inches): 10.00 Weight (Pounds): 163 General Appearance: no apparent distress Respiratory/Chest: decreased breath sounds Abdomen: soft Objective no other change BHARATHI LOVE January 07, 2018 11:47
[2018-01-07 12:00] VITALS: BP 137/87
--- NOTE | 2018-01-07 14:23 | Cardiac Electrophysiology PN ---
Assessment/Plan Assessment/Plan 1. 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 On Lasix 40 mg IV b.i.d. Off dobutamine Continue Coreg 3.125 mg b.i.d., hydralazine 50 mg tid , Isordil 10 mg every 6 hours Will proceed with defibrillator implantation when OK with ID Does not meet criteria for cardiac resynchronization therapy as his QRS duration is less than 120 milliseconds. 2. Renal failure. Mildly improved from 3.7 to 2.0. F/U by Dr. Dennis 3. Elevated liver function tests likely due to right heart failure and hepatic congestion. 4. Elevated white count of 22k. Follow up with ID SALINAS KHAN Subjective Subjective WBC jumped to 22k. ICD implant postponed. Now off Dobutamine. Continue Lasix 40 iv bid Objective Last 24 Hour Vital Signs Date Time Temp Pulse Resp B/P (MAP) Pulse Ox O2 Delivery O2 Flow Rate FiO2 01/07/18 13:04 127/76 01/07/18 12:00 127/76 01/07/18 08:41 77 127/76 01/07/18 08:00 83 01/07/18 08:00 97.2 81 20 127/65 98 Room Air 97.2 01/07/18 05:40 127/76 01/07/18 05:40 127/76 01/07/18 04:00 77 01/07/18 04:00 98.2 74 20 127/76 96 Room Air 98.2 01/07/18 00:06 125/79 01/07/18 00:00 98.2 82 20 125/79 96 Room Air 98.2 01/07/18 00:00 95 01/06/18 21:26 128/81 01/06/18 21:25 92 128/81 01/06/18 20:00 95 01/06/18 20:00 98.1 92 20 128/81 95 Room Air 98.1 01/06/18 17:39 126/73 01/06/18 16:00 89 01/06/18 16:00 97.5 89 22 110/69 96 Room Air 97.5 Intake and Output 01/06/18 01/07/18 19:00 07:00 Intake Total 30.261 ml Output Total 1565 ml Balance 30.261 ml -1565 ml IV Total 30.261 ml Output Urine Total 1565 ml # Bowel Movements 3 2 Laboratory Tests Test 01/07/18 04:00 White Blood Count 22.5 K/UL (4.8-10.8) *H Red Blood Count 5.24 M/UL (4.70-6.10) Hemoglobin 15.0 G/DL (14.2-18.0) Hematocrit 47.9 % (42.0-52.0) Mean Corpuscular Volume 91 FL (80-99) Mean Corpuscular Hemoglobin 28.6 PG (27.0-31.0) Mean Corpuscular Hemoglobin Concent 31.4 G/DL (32.0-36.0) L Red Cell Distribution Width 15.8 % (11.6-14.8) H Platelet Count 146 K/UL (150-450) L Mean Platelet Volume 9.2 FL (6.5-10.1) Neutrophils (%) (Auto) % (45.0-75.0) Lymphocytes (%) (Auto) % (20.0-45.0) Monocytes (%) (Auto) % (1.0-10.0) Eosinophils (%) (Auto) % (0.0-3.0) Basophils (%) (Auto) % (0.0-2.0) Differential Total Cells Counted 100 Neutrophils % (Manual) 89 % (45-75) H Lymphocytes % (Manual) 4 % (20-45) L Monocytes % (Manual) 7 % (1-10) Eosinophils % (Manual) 0 % (0-3) Basophils % (Manual) 0 % (0-2) Band Neutrophils 0 % (0-8) Platelet Estimate Decreased L Platelet Morphology Normal Anisocytosis 1+ Sodium Level 142 MMOL/L (136-145) Potassium Level 4.9 MMOL/L (3.5-5.1) Chloride Level 104 MMOL/L (98-107) Carbon Dioxide Level 30 MMOL/L (21-32) Anion Gap 8 mmol/L (5-15) Blood Urea Nitrogen 39 mg/dL (7-18) H Creatinine 2.1 MG/DL (0.55-1.30) H Estimat Glomerular Filtration Rate mL/min (>60) Glucose Level 111 MG/DL (74-106) H Uric Acid 7.2 MG/DL (2.6-7.2) Calcium Level 8.7 MG/DL (8.5-10.1) Phosphorus Level 3.2 MG/DL (2.5-4.9) Magnesium Level 1.7 MG/DL (1.8-2.4) L Total Bilirubin 0.8 MG/DL (0.2-1.0) Aspartate Amino Transf (AST/SGOT) 28 U/L (15-37) Alanine Aminotransferase (ALT/SGPT) 27 U/L (12-78) Alkaline Phosphatase 61 U/L (46-116) Pro-B-Type Natriuretic Peptide 7303 pg/mL (0-125) H Total Protein 6.5 G/DL (6.4-8.2) Albumin 2.7 G/DL (3.4-5.0) L Globulin 3.8 g/dL Albumin/Globulin Ratio 0.7 (1.0-2.7) L Objective HEAD AND NECK: Mild JVD. LUNGS: Decreased breath sounds. CARDIOVASCULAR: Regular S1 and S2 with no gallop or murmur. ABDOMEN: Soft. EXTREMITIES: 2+ pitting edema. Andre Howard MD January 07, 2018 14:23
--- NOTE | 2018-01-07 14:38 | General Progress Note ---
Assessment/Plan Status: progressing Assessment/Plan -ativan prn -zyprexa prn encephalopathy resolved Subjective Date patient seen: January 06, 2018 Neurologic/Psychiatric: Reports: anxiety, depressed, emotional problems Allergies: Coded Allergies: No Known Allergies (Unverified , 01/09/14) Subjective the pt is doing well Objective Last 24 Hour Vital Signs Date Time Temp Pulse Resp B/P (MAP) Pulse Ox O2 Delivery O2 Flow Rate FiO2 01/07/18 13:04 127/76 01/07/18 12:00 127/76 01/07/18 08:41 77 127/76 01/07/18 08:00 83 01/07/18 08:00 97.2 81 20 127/65 98 Room Air 97.2 01/07/18 05:40 127/76 01/07/18 05:40 127/76 01/07/18 04:00 77 01/07/18 04:00 98.2 74 20 127/76 96 Room Air 98.2 01/07/18 00:06 125/79 01/07/18 00:00 98.2 82 20 125/79 96 Room Air 98.2 01/07/18 00:00 95 01/06/18 21:26 128/81 01/06/18 21:25 92 128/81 01/06/18 20:00 95 01/06/18 20:00 98.1 92 20 128/81 95 Room Air 98.1 01/06/18 17:39 126/73 01/06/18 16:00 89 01/06/18 16:00 97.5 89 22 110/69 96 Room Air 97.5 Intake and Output 01/06/18 01/07/18 19:00 07:00 Intake Total 30.261 ml Output Total 1565 ml Balance 30.261 ml -1565 ml IV Total 30.261 ml Output Urine Total 1565 ml # Bowel Movements 3 2 Laboratory Tests 01/07/18 04:00: White Blood Count 22.5*H, Red Blood Count 5.24, Hemoglobin 15.0, Hematocrit 47.9 , Mean Corpuscular Volume 91, Mean Corpuscular Hemoglobin 28.6, Mean Corpuscular Hemoglobin Concent 31.4L, Red Cell Distribution Width 15.8H, Platelet Count 146L, Mean Platelet Volume 9.2, Neutrophils (%) (Auto) , Lymphocytes (%) (Auto) , Monocytes (%) (Auto) , Eosinophils (%) (Auto) , Basophils (%) (Auto) , Differential Total Cells Counted 100, Neutrophils % ( Manual) 89H, Lymphocytes % (Manual) 4L, Monocytes % (Manual) 7, Eosinophils % ( Manual) 0, Basophils % (Manual) 0, Band Neutrophils 0, Platelet Estimate DecreasedL, Platelet Morphology Normal, Anisocytosis 1+, Sodium Level 142, Potassium Level 4.9, Chloride Level 104, Carbon Dioxide Level 30, Anion Gap 8, Blood Urea Nitrogen 39H, Creatinine 2.1H, Estimat Glomerular Filtration Rate , Glucose Level 111H, Uric Acid 7.2, Calcium Level 8.7, Phosphorus Level 3.2, Magnesium Level 1.7L, Total Bilirubin 0.8, Aspartate Amino Transf (AST/SGOT) 28 , Alanine Aminotransferase (ALT/SGPT) 27, Alkaline Phosphatase 61, Pro-B-Type Natriuretic Peptide 7303H, Total Protein 6.5, Albumin 2.7L, Globulin 3.8, Albumin/Globulin Ratio 0.7L Height (Feet): 5 Height (Inches): 10.00 Weight (Pounds): 163 General Appearance: no apparent distress, alert Neurologic: oriented x 3, depressed affect Ralph Alva M.D. January 07, 2018 14:38
--- NOTE | 2018-01-07 15:26 | General Progress Note ---
Assessment/Plan Problem List: (1) CKD (chronic kidney disease) ICD Codes: N18.9 - CKD (chronic kidney disease) SNOMED: 964165425 Qualifiers: Qualified Codes: N18.9 - Chronic kidney disease, unspecified (2) HTN (hypertension) ICD Codes: I10 - HTN (hypertension) SNOMED: 13326912 (3) CHF (congestive heart failure) ICD Codes: I50.9 - CHF (congestive heart failure) SNOMED: 01052951 (4) Respiratory distress ICD Codes: R06.00 - Dyspnea, unspecified SNOMED: 934365033 (5) Dyspnea ICD Codes: R06.00 - Dyspnea, unspecified SNOMED: 442320477 (6) Asthma exacerbation ICD Codes: J45.901 - Unspecified asthma with (acute) exacerbation SNOMED: 575322473 (7) FIONA (acute kidney injury) ICD Codes: N17.9 - Acute kidney failure, unspecified SNOMED: 03533782 (8) CHF exacerbation ICD Codes: I50.9 - Heart failure, unspecified SNOMED: 16158065 Qualifiers: Qualified Codes: I50.9 - Heart failure, unspecified (9) CVA (cerebral vascular accident) ICD Codes: I63.9 - Cerebral infarction, unspecified SNOMED: 412643480 Qualifiers: Qualified Codes: I63.9 - Cerebral infarction, unspecified (10) Peripheral edema ICD Codes: R60.9 - Edema, unspecified SNOMED: 862987931 (11) Cardiomyopathy ICD Codes: I42.9 - Cardiomyopathy SNOMED: 02202628 (12) Malnutrition ICD Codes: E46 - Malnutrition SNOMED: 9441704 (13) Hypokalemia ICD Codes: E87.6 - Hypokalemia SNOMED: 33824214 (14) Prediabetes ICD Codes: R73.03 - Prediabetes SNOMED: 442970048 (15) HLD (hyperlipidemia) ICD Codes: E78.5 - Hyperlipidemia, unspecified SNOMED: 77474717 (16) Leukocytosis ICD Codes: D72.829 - Elevated white blood cell count, unspecified SNOMED: 129659426, 860419476 Status: stable, progressing Assessment/Plan #acute right parietal infarct - Neurology consulted, appreciate rec's - No need for transfer to stroke center at this time per neurology - NIH stroke scale last night was 2 prior to TPA. Repeat NIH stroke scale is 5 - s/p tPA given at 0300 on 01/01 - CT head on 01/01 at 0100 was negative. - MRI brain showing acute small right parietal infarct with no hemorrhage, midline shift, or mass effect - continue permissive hypertension to systolic 160-180s x 24 hours - MRA brain and neck without contrast showing attenuated appearance of the distal right middle cerebral artery likely due to technical issues. Also with short segment stenotic appearance of the right proximal ICA, cannot exclude high -grade stenosis. - carotid U/S negative - repeat CT with no bleed, showing acute infarct. also with some corresponding edema without significant mass effect --> start HSQ - ECHO with doppler showing 25-30% EF, pulmonary hypertension, and left ventricular hypokinesis - bilateral venous duplex negative - check lipid panel and A1c - ST/PT/OT eval - Passed swallow eval, on pureed. video swallow study done, f/u results - neurochecks q4hr - LDL 83. Start lipitor 80mg qhs - will start ASA 81mg after defibb placement #Acute asthma exacerbation - prednisone 40mg PO qd x 5 days (D5/5). discontinued as patient's wheezing resolved - duonebs ATC q6hr - ABGs #Sepsis, unknown etiology - ID consulted, appreciate rec's - s/p IV CTX and flagyl per ID. CTX continued per ID. Flagyl dc'ed on 01/04 - CXR negative. Repeat CXR negative - trend CBC - WBC uptrended from 18-->[address] a/p with oral contrast. Continue IV abx per ID. f/u repeat UA/UCx, CXR, blood cx x 2, and check C. diff. #Acute on chronic systolic CHF / severe cardiomyopathy - cardiology consulted, appreciate rec's - strict I&O - 1.5 L fluid restriction - lasix 80mg IV BID --> lasix 60 IV BID --> lasix 40mg IV BID - permissive HTN with systolic 160-180s given acute CVA till 01/02 - dobutamine gtt titrated down to 1 mcg/min - s/p PICC line 01/03 - EF 25-30% - cardiology recommending defibrillator placement. Will be scheduled once cleared per ID. Discussed risks/benefits with family. Family agreeable. Cleared per neurology. #FIONA due to cardiorenal syndrome - nephrology consulted, appreciate rec's - trend Cr, downtrending - Cr 2.0 --> 2.1 - check urine lytes - avoid IVF given CHF exacerbation #Hypokalemia - replete electrolytes prn. monitor BMP and Mg #HLD - start lipitor 80mg #Prediabetes - A1c 6.2 - will start MURIEL for now - if Cr stabilizes, will discharge patient on metformin/glipizide DVT ppx: HSQ Discussed case in detail with nursing staff, cardiology, nephrology, neurology, ID, transfer center, patient, and family. Case d/w Dr. Holliday/Dr. Quintero who agrees to the plan above. Disposition: ARU vs. SNF vs. home with home health I spent a total of 43 minutes on this patient's case with greater than 50% spent on care and coordination of the patient. Subjective Date patient seen: January 07, 2018 Time patient seen: 12:00 Allergies: Coded Allergies: No Known Allergies (Unverified , 01/09/14) Subjective - no acute events overnight - wbc 18 --> 22 today, and not on any steroids. defibb placement held - reports multiple bowel movements yesterday. unable to describe consistency. - AF, HDS - denies chest pain, sob, n/v, abdominal pain Objective Last 24 Hour Vital Signs Date Time Temp Pulse Resp B/P (MAP) Pulse Ox O2 Delivery O2 Flow Rate FiO2 01/07/18 13:04 127/76 01/07/18 12:00 127/76 01/07/18 08:41 77 127/76 01/07/18 08:00 83 01/07/18 08:00 97.2 81 20 127/65 98 Room Air 97.2 01/07/18 05:40 127/76 01/07/18 05:40 127/76 01/07/18 04:00 77 01/07/18 04:00 98.2 74 20 127/76 96 Room Air 98.2 01/07/18 00:06 125/79 01/07/18 00:00 98.2 82 20 125/79 96 Room Air 98.2 01/07/18 00:00 95 01/06/18 21:26 128/81 5/24/18 21:25 92 128/81 01/06/18 20:00 95 01/06/18 20:00 98.1 92 20 128/81 95 Room Air 98.1 01/06/18 17:39 126/73 01/06/18 16:00 89 01/06/18 16:00 97.5 89 22 110/69 96 Room Air 97.5 Intake and Output 01/06/18 01/07/18 19:00 07:00 Intake Total 30.261 ml Output Total 1565 ml Balance 30.261 ml -1565 ml IV Total 30.261 ml Output Urine Total 1565 ml # Bowel Movements 3 2 Laboratory Tests 01/07/18 04:00: White Blood Count 22.5*H, Red Blood Count 5.24, Hemoglobin 15.0, Hematocrit 47.9 , Mean Corpuscular Volume 91, Mean Corpuscular Hemoglobin 28.6, Mean Corpuscular Hemoglobin Concent 31.4L, Red Cell Distribution Width 15.8H, Platelet Count 146L, Mean Platelet Volume 9.2, Neutrophils (%) (Auto) , Lymphocytes (%) (Auto) , Monocytes (%) (Auto) , Eosinophils (%) (Auto) , Basophils (%) (Auto) , Differential Total Cells Counted 100, Neutrophils % ( Manual) 89H, Lymphocytes % (Manual) 4L, Monocytes % (Manual) 7, Eosinophils % ( Manual) 0, Basophils % (Manual) 0, Band Neutrophils 0, Platelet Estimate DecreasedL, Platelet Morphology Normal, Anisocytosis 1+, Sodium Level 142, Potassium Level 4.9, Chloride Level 104, Carbon Dioxide Level 30, Anion Gap 8, Blood Urea Nitrogen 39H, Creatinine 2.1H, Estimat Glomerular Filtration Rate , Glucose Level 111H, Uric Acid 7.2, Calcium Level 8.7, Phosphorus Level 3.2, Magnesium Level 1.7L, Total Bilirubin 0.8, Aspartate Amino Transf (AST/SGOT) 28 , Alanine Aminotransferase (ALT/SGPT) 27, Alkaline Phosphatase 61, Pro-B-Type Natriuretic Peptide 7303H, Total Protein 6.5, Albumin 2.7L, Globulin 3.8, Albumin/Globulin Ratio 0.7L Height (Feet): 5 Height (Inches): 10.00 Weight (Pounds): 163 General Appearance: no apparent distress, alert EENT: PERRL/EOMI, normal ENT inspection Neck: non-tender, normal alignment, supple Cardiovascular: normal peripheral pulses, normal rate, regular rhythm Respiratory/Chest: chest wall non-tender, lungs clear, normal breath sounds Abdomen: normal bowel sounds, non tender, soft Extremities: normal range of motion, non-tender, normal inspection Neurologic: artificial breast fabricator II-XII grossly normal, alert, oriented x 3, other - 3/5 strength to LUE and LLE Skin: normal pigmentation, warm/dry Diane Silva NP January 07, 2018 15:26
[2018-01-07 16:00] VITALS: BP 139/79
[2018-01-07 16:33] LABS: APPEARANCE,URINE CLEAR; BILIRUBIN, URINE NEGATIVE (NEGATIVE); COLOR,URINE PALE YELLOW; GLUCOSE, URINE (UA) NEGATIVE (NEGATIVE); KETONES,URINE NEGATIVE (NEGATIVE); LEUKOCYTE ESTERASE ,URINE 3+ (NEGATIVE); NITRITE,URINE NEGATIVE (NEGATIVE); PH,URINE 8 (4.5-8.0); PROTEIN,URINE NEGATIVE (NEGATIVE); UROBILINOGEN,URINE NORMAL MG/DL (0.0-1.0)
--- NOTE | 2018-01-07 19:13 | Infectious Diseases Prog Note ---
Assessment/Plan Assessment/Plan ASSESSMENT AND PLAN: 1. leukocytosis, ? sepsis, valeria, aspiration risk, abdomen benign, ? uti, ua worse , ? fungemia, ? c.diff., ? intra-abdominal abscess, no diarrhea, no sig abdominal pain, recent steroids - change abx to zosyn and diflucan - repeat blood culture, urine culture, c.diff. if diarrhea - check ct scan of abdomen and pelvis - f/u on labs - d/w Diane Gresham NP - d/w Dr. Alexandre, not cleared for defibrillator at this time - see orders, change in abx - d/w RN about abx 2. The patient has elevated creatinine with acute kidney injury, chronic renal failure, and anemia. 3. Acute cerebrovascular accident per history and exam + MRI noted - treatment per primary team and neurology, tpa given 4. Chronic obstructive pulmonary disease and asthma exacerbation. 5. Shortness of breath. 6. Steroids. 7. Congestive heart failure. 8. Leg edema. 9. Hypertension. 10. Blood pressure treatment per primary consultants. 11. No known allergies. 12. Social history negative. 13. Family history noncontributory. 14. MAR was noted. 15. Case discussed with RN. 16. Case discussed and communicated with Diane Silva NP for Dr. Holliday. 17. Continue treatment per primary consultants. 18. Notes and records were noted. 19. Orders were entered and communicated. 20. Case was discussed the patient's family. 21. We will follow with you. Subjective Constitutional: Reports: fatigue, other - + left sided weakness; Denies: fever HEENT: Denies: congestion Respiratory: Denies: shortness of breath Cardiovascular: Denies: chest pain Gastrointestinal/Abdominal: Denies: nausea, vomiting, diarrhea, constipation Genitourinary: Reports: other - + reagan Neurologic: Denies: headache Psychiatric: Denies: depression Skin: Denies: rash Hematologic: Denies: bleeding Musculoskeletal: Denies: pain Allergies: Coded Allergies: No Known Allergies (Unverified , 01/09/14) Objective Vital Signs Last 24 Hour Vital Signs Date Time Temp Pulse Resp B/P (MAP) Pulse Ox O2 Delivery O2 Flow Rate FiO2 01/07/18 18:19 139/79 01/07/18 16:00 77 5/25/18 16:00 97.9 82 20 139/79 98 Room Air 97.9 01/07/18 13:04 127/76 01/07/18 12:00 98.2 105 16 137/87 97 Room Air 98.2 01/07/18 12:00 96 01/07/18 12:00 127/76 01/07/18 08:41 77 127/76 01/07/18 08:00 83 01/07/18 08:00 97.2 81 20 127/65 98 Room Air 97.2 01/07/18 05:40 127/76 01/07/18 05:40 127/76 01/07/18 04:00 77 01/07/18 04:00 98.2 74 20 127/76 96 Room Air 98.2 01/07/18 00:06 125/79 01/07/18 00:00 98.2 82 20 125/79 96 Room Air 98.2 01/07/18 00:00 95 01/06/18 21:26 128/81 01/06/18 21:25 92 128/81 01/06/18 20:00 95 01/06/18 20:00 98.1 92 20 128/81 95 Room Air 98.1 Height (Feet): 5 Height (Inches): 10.00 Weight (Pounds): 163 General Appearance: no acute distress HEENT: normocephalic, atraumatic, anicteric Respiratory/Chest: lungs clear, normal breath sounds, no respiratory distress, no accessory muscle use Cardiovascular: normal peripheral pulses, regular rhythm, no gallop/murmur, no JVD Abdomen: normal bowel sounds, soft, non tender, no organomegaly, non distended Genitourinary: other - + reagan - urine cloudy Extremities: no cyanosis Skin: no rash Neurologic/Psychiatric: 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 Acute small area of right parietal infarct. No hemorrhage. No mass effect or midline shift. 2. Involutional changes with small vessel disease. Chest -x-ray - 01/01 and 01/04 - no consolidation Chest x-ray - 01/06 - copd, no consolidation identified, report noted Microbiology Date/Time Source Procedure Growth Status 01/01/18 09:05 Blood Blood Culture - Final NO GROWTH AFTER 5 DAYS Complete 01/01/18 01:15 Urine,Clean Catch Urine Culture - Final Mixed Gram Positive Organism Complete Laboratory Tests Test 01/07/18 04:00 White Blood Count 22.5 K/UL (4.8-10.8) *H Red Blood Count 5.24 M/UL (4.70-6.10) Hemoglobin 15.0 G/DL (14.2-18.0) Hematocrit 47.9 % (42.0-52.0) Mean Corpuscular Volume 91 FL (80-99) Mean Corpuscular Hemoglobin 28.6 PG (27.0-31.0) Mean Corpuscular Hemoglobin Concent 31.4 G/DL (32.0-36.0) L Red Cell Distribution Width 15.8 % (11.6-14.8) H Platelet Count 146 K/UL (150-450) L Mean Platelet Volume 9.2 FL (6.5-10.1) Neutrophils (%) (Auto) % (45.0-75.0) Lymphocytes (%) (Auto) % (20.0-45.0) Monocytes (%) (Auto) % (1.0-10.0) Eosinophils (%) (Auto) % (0.0-3.0) Basophils (%) (Auto) % (0.0-2.0) Differential Total Cells Counted 100 Neutrophils % (Manual) 89 % (45-75) H Lymphocytes % (Manual) 4 % (20-45) L Monocytes % (Manual) 7 % (1-10) Eosinophils % (Manual) 0 % (0-3) Basophils % (Manual) 0 % (0-2) Band Neutrophils 0 % (0-8) Platelet Estimate Decreased L Platelet Morphology Normal Anisocytosis 1+ Sodium Level 142 MMOL/L (136-145) Potassium Level 4.9 MMOL/L (3.5-5.1) Chloride Level 104 MMOL/L (98-107) Carbon Dioxide Level 30 MMOL/L (21-32) Anion Gap 8 mmol/L (5-15) Blood Urea Nitrogen 39 mg/dL (7-18) H Creatinine 2.1 MG/DL (0.55-1.30) H Estimat Glomerular Filtration Rate mL/min (>60) Glucose Level 111 MG/DL (74-106) H Uric Acid 7.2 MG/DL (2.6-7.2) Calcium Level 8.7 MG/DL (8.5-10.1) Phosphorus Level 3.2 MG/DL (2.5-4.9) Magnesium Level 1.7 MG/DL (1.8-2.4) L Total Bilirubin 0.8 MG/DL (0.2-1.0) Aspartate Amino Transf (AST/SGOT) 28 U/L (15-37) Alanine Aminotransferase (ALT/SGPT) 27 U/L (12-78) Alkaline Phosphatase 61 U/L (46-116) Pro-B-Type Natriuretic Peptide 7303 pg/mL (0-125) H Total Protein 6.5 G/DL (6.4-8.2) Albumin 2.7 G/DL (3.4-5.0) L Globulin 3.8 g/dL Albumin/Globulin Ratio 0.7 (1.0-2.7) L Current Medications Medications (Trade) Dose Ordered Sig/Denny Route PRN Reason Start Time Stop Time Status Last Admin Dose Admin Acetaminophen (Tylenol) 650 mg Q4H PRN ORAL Mild Pain (Pain Scale 1-3) 01/02/18 04:00 01/31/18 11:59 Acetaminophen (Tylenol) 650 mg Q4H PRN ORAL T>100.5 01/02/18 04:00 01/31/18 11:59 Allopurinol (Allopurinol) 300 mg DAILY ORAL 01/04/18 09:00 02/03/18 08:59 01/07/18 08:40 Atorvastatin Calcium (Lipitor) 80 mg BEDTIME ORAL 01/04/18 21:00 02/03/18 20:59 01/06/18 21:25 Carvedilol (Coreg) 3.125 mg EVERY 12 HOURS ORAL 01/02/18 09:00 01/31/18 20:59 01/07/18 08:41 Chlorhexidine Gluconate (Caitlin-Hex 2%) 1 applic DAILY@1999 TOPIC 01/02/18 20:00 02/01/18 19:59 01/06/18 21:25 Dextrose (Dextrose 50%) 25 ml STAT PRN IV Hypoglycemia 01/02/18 11:30 01/31/18 11:29 Dextrose (Dextrose 50%) 50 ml STAT PRN IV Hypoglycemia 01/02/18 11:30 01/31/18 11:29 Diatrizoate Meglum/ Diatrizoate Sod (Gastrografin) 30 ml NOW PRN ORAL Radiology Procedure 01/07/18 11:45 01/09/18 11:34 Fluconazole/ Sodium Chloride 100 ml @ 100 mls/hr Q24H IV 01/07/18 09:00 01/14/18 08:59 01/07/18 10:01 Furosemide (Lasix) 40 mg EVERY 12 HOURS IV 01/05/18 21:00 02/03/18 20:59 01/07/18 08:40 Heparin Sodium (Porcine) (Heparin 5000 units/ml) 5,000 units EVERY 12 HOURS SUBQ 01/04/18 21:00 02/03/18 20:59 01/07/18 08:43 Hydralazine HCl (Apresoline) 50 mg Q8HR ORAL 01/02/18 06:00 01/31/18 13:59 01/07/18 13:04 Insulin Aspart (NovoLOG) BEFORE MEALS AND HS SUBQ 01/04/18 16:30 02/03/18 16:29 01/06/18 21:32 Isosorbide Dinitrate (Isordil) 10 mg Q6HR ORAL 01/02/18 06:00 01/31/18 17:59 01/07/18 18:19 Lorazepam (Ativan) 1 mg Q4H PRN ORAL For Anxiety 01/02/18 03:30 01/08/18 11:29 Morphine Sulfate (Morphine Sulfate) 4 mg Q6H PRN IVP Severe Pain (Pain Scale 7-10) 01/02/18 05:30 01/08/18 11:29 Olanzapine (ZyPREXA) 2.5 mg HSPRN PRN ORAL Agitation 01/03/18 13:30 02/02/18 13:29 Ondansetron HCl (Zofran) 4 mg Q6H PRN IVP Nausea & Vomiting 01/02/18 05:30 01/31/18 11:29 Pantoprazole (Protonix) 40 mg EVERY 12 HOURS ORAL 01/02/18 09:00 01/31/18 20:59 01/07/18 08:41 Piperacillin Sod/ Tazobactam Sod 2.25 gm/Dextrose 110 ml @ 220 mls/hr Q6H IVPB 01/07/18 10:00 01/14/18 09:59 01/07/18 17:04 Potassium Chloride (K-Dur) 40 meq TID ORAL 01/04/18 13:00 02/02/18 09:29 01/07/18 18:19 Tamsulosin HCl (Flomax) 0.4 mg BID ORAL 01/02/18 09:00 01/31/18 13:14 01/07/18 18:19 Ted Gonzalez MD January 07, 2018 19:13
[2018-01-07 20:00] VITALS: BP 122/67
[2018-01-07] MEDS: Dyna-Hex 2% Top Sol 2oz TOPIC SCH (21:50)
[2018-01-07] MEDS: Atorvastatin 80mg tab ORAL SCH (21:51)
--- NOTE | 2018-01-07 22:05 | Diagnostic Imaging Report ---
EXAM: CT Abdomen and Pelvis Without Intravenous Contrast CLINICAL HISTORY: ABSCESS TECHNIQUE: Axial computed tomography images of the abdomen and pelvis without intravenous contrast. CTDI is 0.15, 10.04 mGy and DLP is 508 mGy-cm. One or more of the following dose reduction techniques were used: automated exposure control, adjustment of the mA and/or kV according to patient size, use of iterative reconstruction technique. Coronal and sagittal reformatted images were created and reviewed. COMPARISON: Abdominal ultrasound performed on 10/20/17. FINDINGS: Limitations: Evaluation for abscess is limited without IV contrast. Lung bases: Mild atelectasis at the left lung base. Heart: Cardiomegaly. ABDOMEN: Liver: The liver is grossly unremarkable for a noncontrast CT. Gallbladder and bile ducts: The gallbladder is grossly unremarkable for a noncontrast CT. No calcified stones. No ductal dilation. Pancreas: The pancreas is grossly unremarkable for a noncontrast CT. Spleen: The spleen is grossly unremarkable for a noncontrast CT. Adrenals: Mild thickening and nodularity of the left adrenal gland. Kidneys and ureters: 4.6 x 3.3 cm low-density lesion in the right kidney which is likely related to a cyst. Evaluation is limited without IV contrast. Other smaller nonspecific low-density lesions are seen in the right kidney which are too small to adequately characterize. There is a small exophytic lesion extending off the lower pole of the left kidney. 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 Left nephrolithiasis without evidence for hydronephrosis or ureteral stone. Stomach and bowel: Diverticulosis without evidence for diverticulitis. No evidence for significant bowel loop dilation to suggest an obstructive process. PELVIS: Appendix: The appendix is normal. Bladder: The bladder is grossly unremarkable for a noncontrast CT. No stones. Reproductive: Some prominence of the prostate gland. ABDOMEN and PELVIS: Intraperitoneal space: No free intraperitoneal fluid or free intraperitoneal gas. Bones/joints: Degenerative changes of the thoracolumbar spine. No acute fracture. No dislocation. Soft tissues: The right psoas muscle is prominent when compared to the left. There is some mild infiltration of the fat adjacent to the right psoas muscle. Some mild increased density is suspected within the right psoas muscle. This is suspicious for a hematoma. The suspected hematoma cannot be from the adjacent musculature. The right psoas muscle and suspected hematoma together measure approximately 4.8 cm in maximum transverse dimensions. Evaluation for active bleeding cannot be performed without IV contrast. An infectious process cannot be excluded radiographically. Small umbilical hernia containing fat only. Vasculature: Vascular atherosclerotic calcifications. No abdominal aortic aneurysm. Lymph nodes: Unremarkable. No enlarged lymph nodes. IMPRESSION: 1. The right psoas muscle is prominent when compared to the left. There is some mild infiltration of the fat adjacent to the right psoas muscle. Some mild increased density is suspected within the right psoas muscle. This is suspicious for a hematoma. The suspected hematoma cannot be from the adjacent musculature. The right psoas muscle and suspected hematoma together measure approximately 4.8 cm in maximum transverse dimensions. Evaluation for active bleeding cannot be performed without IV contrast. An infectious process or neoplastic process cannot be excluded radiographically. 2. Cardiomegaly. 3. Diverticulosis without evidence for diverticulitis. Critical Value [employer] 01/07/18 22:18 Verify Receipt with Nurse Verified receipt with ERIN Turner on 01/07 22:18 (-07:00)
[2018-01-07 23:47] LABS: HEMATOCRIT 48.5 % (42.0-52.0); HEMOGLOBIN 15.6 G/DL (14.2-18.0); MEAN CORPUSCULAR VOLUME 89 FL (80-99); PLATELET COUNT 169 K/UL (150-450); RED BLOOD COUNT 5.45 M/UL (4.70-6.10); RED CELL DISTRIBUTION WIDTH 16.1 % (11.6-14.8)
[2018-01-08] VITALS: BP 107/75
--- NOTE | 2018-01-08 00:15 | Progress Note ---
DATE: 01/07/2018 SUBJECTIVE: The patient is in bed, in no acute distress, calm. Still has anxiety. Cognition is improving. He is able to answer questions and is oriented to self, place, and situation he is in. MENTAL STATUS EXAMINATION: The patient is alert and oriented times self, place, and situation. Mood is neutral to anxious. Affect is constricted, congruent with mood. Thought process is concrete. Thought content, no suicidal or homicidal ideation. ASSESSMENT: 1. Encephalopathy, improved. 2. Anxiety and depression. PLAN: 1. The patient will continue to be on Zyprexa and Ativan as needed. 2. We will continue to follow and readjust the medications. Ralph Alva M.D. DR: AMELIA JOB#: [id number] CC:
[2018-01-08 04:00] VITALS: BP 132/79
[2018-01-08] MEDS: Piperacillin/Tazobactam 2.25 GM in D5W 110 ML IVPB SCH ×4 (04:01→22:55)
[2018-01-08 06:05] LABS: BASOPHILS % (AUTO) 0.8 % (0.0-2.0); EOSINOPHILS % (AUTO) 0.8 % (0.0-3.0); HEMOGLOBIN 15.8 G/DL (14.2-18.0); LYMPHOCYTES % (AUTO) 6.5 % (20.0-45.0); MEAN CORPUSCULAR VOLUME 91 FL (80-99); MONOCYTES % (AUTO) 7.5 % (1.0-10.0); NEUTROPHILS % (AUTO) 84.4 % (45.0-75.0); PLATELET COUNT 143 K/UL (150-450); RED BLOOD COUNT 5.58 M/UL (4.70-6.10); RED CELL DISTRIBUTION WIDTH 15.9 % (11.6-14.8); WHITE BLOOD COUNT 17.2 K/UL (4.8-10.8)
[2018-01-08 06:10] LABS: ALANINE AMINOTRANSFERASE 30 U/L (12-78); ALBUMIN 2.9 G/DL (3.4-5.0); ALBUMIN/GLOBULIN RATIO 0.7 (1.0-2.7); ALKALINE PHOSPHATASE 63 U/L (46-116); ANION GAP 8 mmol/L (5-15); ASPARTATE AMINO TRANSFERASE 33 U/L (15-37); BILIRUBIN,TOTAL 0.9 MG/DL (0.2-1.0); BLOOD UREA NITROGEN 43 mg/dL (7-18); CALCIUM 8.9 MG/DL (8.5-10.1); CARBON DIOXIDE 29 MMOL/L (21-32); CHLORIDE 104 MMOL/L (98-107); CREATININE 2.2 MG/DL (0.55-1.30); POTASSIUM 5.1 MMOL/L (3.5-5.1); SODIUM 141 MMOL/L (136-145)
[2018-01-08] MEDS: HydrALAZINE 50mg tab ORAL SCH ×3 (06:52→22:00)
[2018-01-08] MEDS: NovoLOG Insulin Flexpen SUBQ SCH ×4 (07:04→21:00)
[2018-01-08 08:00] VITALS: BP 124/85
[2018-01-08] MEDS: Tamsulosin 0.4mg cap ORAL SCH ×2 (08:45→22:47)
[2018-01-08] MEDS: Heparin 5000 units/ml inj SUBQ SCH ×2 (08:46→22:54)
--- NOTE | 2018-01-08 10:49 | Nephrology Progress Note ---
Assessment/Plan Problem List: (1) CKD (chronic kidney disease) (2) CHF (congestive heart failure) (3) Cardiomyopathy (4) Proteinuria Assessment WBCs elevated CKD- Cr lower chronic systolic heart failure Right heart failuer Edema due to above and possible venous insuf Non-ischemic cardiomyopathy no cad by cath 2016 History of DVT pulmonary HTN h/o Thrombocytopenia HTN Proteinuria previous echo: Severe global left ventricular hypokinesis with septal thinning. Left ventricular ejection fraction estimated to be 10-15 %. Plan Per ID mag and K supplement as needed Optimize cardiac status, on Dobutamin monitor renal parameters Avoid nephrotoxics per orders Subjective ROS Limited/Unobtainable: No Constitutional: Reports: malaise Objective Objective Last 24 Hour Vital Signs Date Time Temp Pulse Resp B/P (MAP) Pulse Ox O2 Delivery O2 Flow Rate FiO2 01/08/18 08:45 90 124/85 01/08/18 08:00 93 01/08/18 08:00 97.5 90 21 124/85 97 Room Air 97.5 01/08/18 06:52 132/79 01/08/18 06:52 132/79 01/08/18 04:00 97.6 89 20 132/79 97 Room Air 97.6 01/08/18 04:00 89 01/08/18 00:04 122/67 01/08/18 00:00 81 01/08/18 00:00 97.5 87 20 107/75 95 Room Air 97.5 01/07/18 21:52 78 122/67 01/07/18 21:51 122/67 01/07/18 20:00 97.5 83 20 122/67 98 Room Air 97.5 01/07/18 20:00 78 01/07/18 18:19 139/79 01/07/18 16:00 77 01/07/18 16:00 97.9 82 20 139/79 98 Room Air 97.9 01/07/18 13:04 127/76 01/07/18 12:00 98.2 105 16 137/87 97 Room Air 98.2 01/07/18 12:00 96 01/07/18 12:00 127/76 Intake and Output 01/07/18 01/08/18 19:00 07:00 Intake Total 430 ml 470 ml Output Total 1300 ml 1000 ml Balance -870 ml -530 ml Intake Oral 250 ml IV Total 430 ml 220 ml Output Urine Total 1300 ml 1000 ml # Bowel Movements 3 3 Laboratory Tests 01/07/18 11:34: White Blood Count 20.0H, Red Blood Count 5.45, Hemoglobin 15.6, Hematocrit 48.5 , Mean Corpuscular Volume 89, Mean Corpuscular Hemoglobin 28.7, Mean Corpuscular Hemoglobin Concent 32.2, Red Cell Distribution Width 16.1H, Platelet Count 169, Mean Platelet Volume 10.7H, Neutrophils (%) (Auto) , Lymphocytes (%) (Auto) , Monocytes (%) (Auto) , Eosinophils (%) (Auto) , Basophils (%) (Auto) , Differential Total Cells Counted 100, Neutrophils % ( Manual) 87H, Lymphocytes % (Manual) 7L, Monocytes % (Manual) 6, Eosinophils % ( Manual) 0, Basophils % (Manual) 0, Band Neutrophils 0, Platelet Estimate Adequate, Platelet Morphology Normal 01/08/18 04:20: White Blood Count 17.2H, Red Blood Count 5.58, Hemoglobin 15.8, Hematocrit 51.0 , Mean Corpuscular Volume 91, Mean Corpuscular Hemoglobin 28.3, Mean Corpuscular Hemoglobin Concent 30.9L, Red Cell Distribution Width 15.9H, Platelet Count 143L, Mean Platelet Volume 9.4, Neutrophils (%) (Auto) 84.4H, Lymphocytes (%) (Auto) 6.5L, Monocytes (%) (Auto) 7.5, Eosinophils (%) (Auto) 0.8, Basophils (%) (Auto) 0.8, Sodium Level 141, Potassium Level 5.1, Chloride Level 104, Carbon Dioxide Level 29, Anion Gap 8, Blood Urea Nitrogen 43H, Creatinine 2.2H, Estimat Glomerular Filtration Rate , Glucose Level 154H, Calcium Level 8.9, Total Bilirubin 0.9, Aspartate Amino Transf (AST/SGOT) 33, Alanine Aminotransferase (ALT/SGPT) 30, Alkaline Phosphatase 63, Total Protein 6.9, Albumin 2.9L, Globulin 4.0, Albumin/Globulin Ratio 0.7L Height (Feet): 5 Height (Inches): 10.00 Weight (Pounds): 160 General Appearance: no apparent distress Objective no other change BHARATHI LOVE January 08, 2018 10:49
[2018-01-08] MEDS ORDERED: Tubing IV Secondary IV ONE (11:07)
[2018-01-08] MEDS ORDERED: NS 275ml ONE ×2 (11:07→15:41)
[2018-01-08 12:00] VITALS: BP 116/78
--- NOTE | 2018-01-08 12:34 | General Progress Note ---
Assessment/Plan Status: stable Assessment/Plan 1. Thrombocytopenia, potentially secondary to underlying medications. Has been seen by Cardiology Service, meds have been reviewed. Currently in the 100-150k range --> Also can be 2/2 sepsis, most recently on pressor --> hepatitis and hiv are negative, US of the abdomen is pending, to r/o hsm and cirrhosis is negative 2. Anemia due to underlying chronic disease. Continue to closely monitor. --> at this time, hold off on extensive workup unless hgb less than 10 --> currently above 11 3. Leukocytosis. Likely related to underlying ID issue. ? sepsis, ? reactive to cva, valeria, aspiration risk, abdomen benign, ? uti, ua with 1 + le and moderate bacteria but urine culture mixed ==> Continue antibiotics as per primary team and Infectious Disease. --> abx as per ID, antibiotics on board 4. Acute cerebrovascular accident, noted on MRI. Further management per neurology 5. Shortness of breath . 6. Sepsis 7. Hypertension. Elevated blood pressure. --> further management per cards Subjective Date patient seen: January 08, 2018 Allergies: Coded Allergies: No Known Allergies (Unverified , 01/09/14) All Systems: reviewed and negative except above Subjective No overnight events. Pt seen in bed asleep. No signs of medical distress. Objective Last 24 Hour Vital Signs Date Time Temp Pulse Resp B/P (MAP) Pulse Ox O2 Delivery O2 Flow Rate FiO2 01/08/18 12:00 97.7 84 20 116/78 96 Room Air 97.7 01/08/18 08:45 90 124/85 01/08/18 08:00 93 01/08/18 08:00 97.5 90 21 124/85 97 Room Air 97.5 01/08/18 06:52 132/79 01/08/18 06:52 132/79 01/08/18 04:00 97.6 89 20 132/79 97 Room Air 97.6 01/08/18 04:00 89 01/08/18 00:04 122/67 01/08/18 00:00 81 01/08/18 00:00 97.5 87 20 107/75 95 Room Air 97.5 01/07/18 21:52 78 122/67 01/07/18 21:51 122/67 01/07/18 20:00 97.5 83 20 122/67 98 Room Air 97.5 01/07/18 20:00 78 01/07/18 18:19 139/79 01/07/18 16:00 77 01/07/18 16:00 97.9 82 20 139/79 98 Room Air 97.9 01/07/18 13:04 127/76 Intake and Output 01/07/18 01/08/18 19:00 07:00 Intake Total 430 ml 470 ml Output Total 1300 ml 1000 ml Balance -870 ml -530 ml Intake Oral 250 ml IV Total 430 ml 220 ml Output Urine Total 1300 ml 1000 ml # Bowel Movements 3 3 Laboratory Tests 01/08/18 04:20: White Blood Count 17.2H, Red Blood Count 5.58, Hemoglobin 15.8, Hematocrit 51.0 , Mean Corpuscular Volume 91, Mean Corpuscular Hemoglobin 28.3, Mean Corpuscular Hemoglobin Concent 30.9L, Red Cell Distribution Width 15.9H, Platelet Count 143L, Mean Platelet Volume 9.4, Neutrophils (%) (Auto) 84.4H, Lymphocytes (%) (Auto) 6.5L, Monocytes (%) (Auto) 7.5, Eosinophils (%) (Auto) 0.8, Basophils (%) (Auto) 0.8, Sodium Level 141, Potassium Level 5.1, Chloride Level 104, Carbon Dioxide Level 29, Anion Gap 8, Blood Urea Nitrogen 43H, Creatinine 2.2H, Estimat Glomerular Filtration Rate , Glucose Level 154H, Calcium Level 8.9, Total Bilirubin 0.9, Aspartate Amino Transf (AST/SGOT) 33, Alanine Aminotransferase (ALT/SGPT) 30, Alkaline Phosphatase 63, Total Protein 6.9, Albumin 2.9L, Globulin 4.0, Albumin/Globulin Ratio 0.7L Height (Feet): 5 Height (Inches): 10.00 Weight (Pounds): 160 General Appearance: no apparent distress EENT: normal ENT inspection Neck: supple Cardiovascular: normal rate Respiratory/Chest: lungs clear Abdomen: non tender Mahendra Marinelli MD January 08, 2018 12:34
--- NOTE | 2018-01-08 13:56 | Internal Med Progress Note ---
Subjective Physician Name Whitney calderon Attending Physician Ajay Holliday MD Current Medications Medications (Trade) Dose Ordered Sig/Denny Route PRN Reason Start Time Stop Time Status Last Admin Dose Admin Acetaminophen (Tylenol) 650 mg Q4H PRN ORAL Mild Pain (Pain Scale 1-3) 01/02/18 04:00 01/31/18 11:59 Acetaminophen (Tylenol) 650 mg Q4H PRN ORAL T>100.5 01/02/18 04:00 01/31/18 11:59 Allopurinol (Allopurinol) 300 mg DAILY ORAL 01/04/18 09:00 02/03/18 08:59 01/08/18 08:45 Atorvastatin Calcium (Lipitor) 80 mg BEDTIME ORAL 01/04/18 21:00 02/03/18 20:59 01/07/18 21:51 Carvedilol (Coreg) 3.125 mg EVERY 12 HOURS ORAL 01/02/18 09:00 01/31/18 20:59 01/08/18 08:45 Chlorhexidine Gluconate (Caitlin-Hex 2%) 1 applic DAILY@2000 TOPIC 01/02/18 20:00 02/01/18 19:59 01/07/18 21:50 Dextrose (Dextrose 50%) 25 ml STAT PRN IV Hypoglycemia 01/02/18 11:30 01/31/18 11:29 Dextrose (Dextrose 50%) 50 ml STAT PRN IV Hypoglycemia 01/02/18 11:30 01/31/18 11:29 Diatrizoate Meglum/ Diatrizoate Sod (Gastrografin) 30 ml NOW PRN ORAL Radiology Procedure 01/07/18 11:45 01/09/18 11:34 Fluconazole/ Sodium Chloride 100 ml @ 100 mls/hr Q24H IV 01/07/18 09:00 01/14/18 08:59 01/08/18 08:44 Furosemide (Lasix) 40 mg EVERY 12 HOURS IV 01/05/18 21:00 02/03/18 20:59 01/08/18 08:45 Heparin Sodium (Porcine) (Heparin 5000 units/ml) 5,000 units EVERY 12 HOURS SUBQ 01/04/18 21:00 02/03/18 20:59 01/07/18 21:59 Hydralazine HCl (Apresoline) 50 mg Q8HR ORAL 01/02/18 06:00 01/31/18 13:59 01/08/18 06:52 Insulin Aspart (NovoLOG) BEFORE MEALS AND HS SUBQ 01/04/18 16:30 02/03/18 16:29 01/08/18 07:04 Isosorbide Dinitrate (Isordil) 10 mg Q6HR ORAL 01/02/18 06:00 01/31/18 17:59 01/08/18 12:35 Olanzapine (ZyPREXA) 2.5 mg HSPRN PRN ORAL Agitation 01/03/18 13:30 02/02/18 13:29 Ondansetron HCl (Zofran) 4 mg Q6H PRN IVP Nausea & Vomiting 01/02/18 05:30 01/31/18 11:29 Pantoprazole (Protonix) 40 mg EVERY 12 HOURS ORAL 01/02/18 09:00 01/31/18 20:59 01/08/18 08:45 Piperacillin Sod/ Tazobactam Sod 2.25 gm/Dextrose 110 ml @ 220 mls/hr Q6H IVPB 01/07/18 10:00 01/14/18 09:59 01/08/18 10:40 Tamsulosin HCl (Flomax) 0.4 mg BID ORAL 01/02/18 09:00 01/31/18 13:14 01/08/18 08:45 Allergies: Coded Allergies: No Known Allergies (Unverified , 01/09/14) Objective Last Vital Signs Date Time Temp Pulse Resp B/P (MAP) Pulse Ox O2 Delivery O2 Flow Rate FiO2 01/08/18 12:35 116/78 01/08/18 12:00 97.7 84 20 96 Room Air 97.7 01/06/18 08:16 21 Laboratory Tests Test 01/08/18 04:20 White Blood Count 17.2 K/UL (4.8-10.8) H Red Blood Count 5.58 M/UL (4.70-6.10) Hemoglobin 15.8 G/DL (14.2-18.0) Hematocrit 51.0 % (42.0-52.0) Mean Corpuscular Volume 91 FL (80-99) Mean Corpuscular Hemoglobin 28.3 PG (27.0-31.0) Mean Corpuscular Hemoglobin Concent 30.9 G/DL (32.0-36.0) L Red Cell Distribution Width 15.9 % (11.6-14.8) H Platelet Count 143 K/UL (150-450) L Mean Platelet Volume 9.4 FL (6.5-10.1) Neutrophils (%) (Auto) 84.4 % (45.0-75.0) H Lymphocytes (%) (Auto) 6.5 % (20.0-45.0) L Monocytes (%) (Auto) 7.5 % (1.0-10.0) Eosinophils (%) (Auto) 0.8 % (0.0-3.0) Basophils (%) (Auto) 0.8 % (0.0-2.0) Sodium Level 141 MMOL/L (136-145) Potassium Level 5.1 MMOL/L (3.5-5.1) Chloride Level 104 MMOL/L (98-107) Carbon Dioxide Level 29 MMOL/L (21-32) Anion Gap 8 mmol/L (5-15) Blood Urea Nitrogen 43 mg/dL (7-18) H Creatinine 2.2 MG/DL (0.55-1.30) H Estimat Glomerular Filtration Rate mL/min (>60) Glucose Level 154 MG/DL (74-106) H Calcium Level 8.9 MG/DL (8.5-10.1) Total Bilirubin 0.9 MG/DL (0.2-1.0) Aspartate Amino Transf (AST/SGOT) 33 U/L (15-37) Alanine Aminotransferase (ALT/SGPT) 30 U/L (12-78) Alkaline Phosphatase 63 U/L (46-116) Total Protein 6.9 G/DL (6.4-8.2) Albumin 2.9 G/DL (3.4-5.0) L Globulin 4.0 g/dL Albumin/Globulin Ratio 0.7 (1.0-2.7) L Microbiology Date/Time Source Procedure Growth Status 01/06/18 13:58 Blood Blood Culture - Preliminary NO GROWTH AFTER 24 HOURS Resulted 01/06/18 13:48 Blood Blood Culture - Preliminary NO GROWTH AFTER 24 HOURS Resulted 01/06/18 12:14 Stool Clostridium difficile Toxin Assay - Final Complete Intake and Output 01/07/18 01/08/18 19:00 07:00 Intake Total 430 ml 470 ml Output Total 1300 ml 1000 ml Balance -870 ml -530 ml Intake Oral 250 ml IV Total 430 ml 220 ml Output Urine Total 1300 ml 1000 ml # Bowel Movements 3 3 Assessment/Plan Assessment/Plan Assessment/Plan Assessment/Plan Problem List: (1) CKD (chronic kidney disease) ICD Codes: N18.9 - CKD (chronic kidney disease) SNOMED: 199865332 Qualifiers: Qualified Codes: N18.9 - Chronic kidney disease, unspecified (2) HTN (hypertension) ICD Codes: I10 - HTN (hypertension) SNOMED: 38943497 (3) CHF (congestive heart failure) ICD Codes: I50.9 - CHF (congestive heart failure) SNOMED: 97142030 (4) Respiratory distress ICD Codes: R06.00 - Dyspnea, unspecified SNOMED: 979557696 (5) Dyspnea ICD Codes: R06.00 - Dyspnea, unspecified SNOMED: 076962314 (6) Asthma exacerbation ICD Codes: J45.901 - Unspecified asthma with (acute) exacerbation SNOMED: 647713409 (7) FIONA (acute kidney injury) ICD Codes: N17.9 - Acute kidney failure, unspecified SNOMED: 72684413 (8) CHF exacerbation ICD Codes: I50.9 - Heart failure, unspecified SNOMED: 69462415 Qualifiers: Qualified Codes: I50.9 - Heart failure, unspecified (9) CVA (cerebral vascular accident) ICD Codes: I63.9 - Cerebral infarction, unspecified SNOMED: 115249684 Qualifiers: Qualified Codes: I63.9 - Cerebral infarction, unspecified (10) Peripheral edema ICD Codes: R60.9 - Edema, unspecified SNOMED: 648811567 (11) Cardiomyopathy ICD Codes: I42.9 - Cardiomyopathy SNOMED: 28900929 (12) Malnutrition ICD Codes: E46 - Malnutrition SNOMED: 1939565 (13) Hypokalemia ICD Codes: E87.6 - Hypokalemia SNOMED: 84361810 (14) Prediabetes ICD Codes: R73.03 - Prediabetes SNOMED: 427153270 (15) HLD (hyperlipidemia) ICD Codes: E78.5 - Hyperlipidemia, unspecified SNOMED: 95149235 (16) Leukocytosis ICD Codes: D72.829 - Elevated white blood cell count, unspecified SNOMED: 178893877, 132202727 Status: stable, progressing Assessment/Plan #acute right parietal infarct - Neurology consulted, appreciate rec's - No need for transfer to stroke center at this time per neurology - NIH stroke scale last night was 2 prior to TPA. Repeat NIH stroke scale is 5 - s/p tPA given at 0300 on 01/01 - CT head on 01/01 at 0100 was negative. - MRI brain showing acute small right parietal infarct with no hemorrhage, midline shift, or mass effect - continue permissive hypertension to systolic 160-180s x 24 hours - MRA brain and neck without contrast showing attenuated appearance of the distal right middle cerebral artery likely due to technical issues. Also with short segment stenotic appearance of the right proximal ICA, cannot exclude high -grade stenosis. - carotid U/S negative - repeat CT with no bleed, showing acute infarct. also with some corresponding edema without significant mass effect --> start HSQ - ECHO with doppler showing 25-30% EF, pulmonary hypertension, and left ventricular hypokinesis - bilateral venous duplex negative - check lipid panel and A1c - ST/PT/OT eval - Passed swallow eval, on pureed. video swallow study done, f/u results - neurochecks q4hr - LDL 83. Start lipitor 80mg qhs - will start ASA 81mg after defibb placement #Acute asthma exacerbation - prednisone 40mg PO qd x 5 days (D5/5). discontinued as patient's wheezing resolved - duonebs ATC q6hr - ABGs #Sepsis, unknown etiology - ID consulted, appreciate rec's - s/p IV CTX and flagyl per ID. CTX continued per ID. Flagyl dc'ed on 01/04 - CXR negative. Repeat CXR negative - trend CBC - WBC uptrended from 18-->[address] a/p with oral contrast. Continue IV abx per ID. f/u repeat UA/UCx, CXR, blood cx x 2, and check C. diff. #Acute on chronic systolic CHF / severe cardiomyopathy - cardiology consulted, appreciate rec's - strict I&O - 1.5 L fluid restriction - lasix 80mg IV BID --> lasix 60 IV BID --> lasix 40mg IV BID - permissive HTN with systolic 160-180s given acute CVA till 01/02 - dobutamine gtt titrated down to 1 mcg/min - s/p PICC line 01/03 - EF 25-30% - cardiology recommending defibrillator placement. Will be scheduled once cleared per ID. Discussed risks/benefits with family. Family agreeable. Cleared per neurology. #FIONA due to cardiorenal syndrome - nephrology consulted, appreciate rec's - trend Cr, downtrending - Cr 2.0 --> 2.1 - check urine lytes - avoid IVF given CHF exacerbation #Hypokalemia - replete electrolytes prn. monitor BMP and Mg #HLD - start lipitor 80mg #Prediabetes - A1c 6.2 - will start MURIEL for now - if Cr stabilizes, will discharge patient on metformin/glipizide DVT ppx: HSQ Discussed case in detail with nursing staff, cardiology, nephrology, neurology, ID, transfer center, patient, and family. Case d/w Dr. Holliday/Dr. Quintero who agrees to the plan above. Disposition: ARU vs. SNF vs. home with home health I spent a total of 43 minutes on this patient's case with greater than 50% spent on care and coordination of the patient. Subjective Subjective Date patient seen: January 07, 2018 Time patient seen: 12:00 Allergies: Coded Allergies: No Known Allergies (Unverified , 01/09/14) Subjective - no acute events overnight - wbc 18 --> 22 today, and not on any steroids. defibb placement held - reports multiple bowel movements yesterday. unable to describe consistency. - AF, HDS - denies chest pain, sob, n/v, abdominal pain Objective Objective Last 24 Hour Vital Signs Date Time Temp Pulse Resp B/P (MAP) Pulse Ox O2 Delivery O2 Flow Rate FiO2 01/07/18 13:04 127/76 01/07/18 12:00 127/76 01/07/18 08:41 77 127/76 01/07/18 08:00 83 01/07/18 08:00 97.2 81 20 127/65 98 Room Air 97.2 01/07/18 05:40 127/76 01/07/18 05:40 127/76 01/07/18 04:00 77 01/07/18 04:00 98.2 74 20 127/76 96 Room Air 98.2 01/07/18 00:06 125/79 01/07/18 00:00 98.2 82 20 125/79 96 Room Air 98.2 01/07/18 00:00 95 01/06/18 21:26 128/81 01/06/18 21:25 92 128/81 01/06/18 20:00 95 01/06/18 20:00 98.1 92 20 128/81 95 Room Air 98.1 01/06/18 17:39 126/73 01/06/18 16:00 89 01/06/18 16:00 97.5 89 22 110/69 96 Room Air 97.5 Intake and Output 01/06/18 01/07/18 19:00 07:00 Intake Total 30.261 ml Output Total 1565 ml Balance 30.261 ml -1565 ml IV Total 30.261 ml Output Urine Total 1565 ml # Bowel Movements 3 2 Laboratory Tests 01/07/18 04:00: White Blood Count 22.5*H, Red Blood Count 5.24, Hemoglobin 15.0, Hematocrit 47.9 , Mean Corpuscular Volume 91, Mean Corpuscular Hemoglobin 28.6, Mean Corpuscular Hemoglobin Concent 31.4L, Red Cell Distribution Width 15.8H, Platelet Count 146L, Mean Platelet Volume 9.2, Neutrophils (%) (Auto) , Lymphocytes (%) (Auto) , Monocytes (%) (Auto) , Eosinophils (%) (Auto) , Basophils (%) (Auto) , Differential Total Cells Counted 100, Neutrophils % ( Manual) 89H, Lymphocytes % (Manual) 4L, Monocytes % (Manual) 7, Eosinophils % ( Manual) 0, Basophils % (Manual) 0, Band Neutrophils 0, Platelet Estimate DecreasedL, Platelet Morphology Normal, Anisocytosis 1+, Sodium Level 142, Potassium Level 4.9, Chloride Level 104, Carbon Dioxide Level 30, Anion Gap 8, Blood Urea Nitrogen 39H, Creatinine 2.1H, Estimat Glomerular Filtration Rate , Glucose Level 111H, Uric Acid 7.2, Calcium Level 8.7, Phosphorus Level 3.2, Magnesium Level 1.7L, Total Bilirubin 0.8, Aspartate Amino Transf (AST/SGOT) 28 , Alanine Aminotransferase (ALT/SGPT) 27, Alkaline Phosphatase 61, Pro-B-Type Natriuretic Peptide 7303H, Total Protein 6.5, Albumin 2.7L, Globulin 3.8, Albumin/Globulin Ratio 0.7L Height (Feet): 5 Height (Inches): 10.00 Weight (Pounds): 163 General Appearance: no apparent distress, alert EENT: PERRL/EOMI, normal ENT inspection Neck: non-tender, normal alignment, supple Cardiovascular: normal peripheral pulses, normal rate, regular rhythm Respiratory/Chest: chest wall non-tender, lungs clear, normal breath sounds Abdomen: normal bowel sounds, non tender, soft Extremities: normal range of motion, non-tender, normal inspection 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 January 08, 2018 13:56
--- NOTE | 2018-01-08 15:41 | Cardiac Electrophysiology PN ---
Assessment/Plan Assessment/Plan 1. 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 On Lasix 40 mg IV bid, Coreg 3.125 mg b.i.d., hydralazine 50 mg tid , Isordil 10 mg every 6 hours Will proceed with defibrillator implantation when OK with ID Does not need BIV pacing as his QRS duration is less than 120 milliseconds. 2. Renal failure. Mildly improved from 3.7 to 2.0. F/U by Dr. Dennis 3. Elevated liver function tests likely due to right heart failure and hepatic congestion. 4. Elevated white count of 22k.Down to 17.2 afebrile. Follow up with ID SALINAS RN Subjective Subjective Feeling better. WBC decreasing. On Lasix 40 iv bid Objective Last 24 Hour Vital Signs Date Time Temp Pulse Resp B/P (MAP) Pulse Ox O2 Delivery O2 Flow Rate FiO2 01/08/18 13:56 116/78 01/08/18 12:35 116/78 01/08/18 12:00 97.7 84 20 116/78 96 Room Air 97.7 01/08/18 12:00 91 01/08/18 08:45 90 124/85 01/08/18 08:00 93 01/08/18 08:00 97.5 90 21 124/85 97 Room Air 97.5 01/08/18 06:52 132/79 01/08/18 06:52 132/79 01/08/18 04:00 97.6 89 20 132/79 97 Room Air 97.6 01/08/18 04:00 89 01/08/18 00:04 122/67 01/08/18 00:00 81 01/08/18 00:00 97.5 87 20 107/75 95 Room Air 97.5 01/07/18 21:52 78 122/67 01/07/18 21:51 122/67 01/07/18 20:00 97.5 83 20 122/67 98 Room Air 97.5 01/07/18 20:00 78 01/07/18 18:19 139/79 01/07/18 16:00 77 01/07/18 16:00 97.9 82 20 139/79 98 Room Air 97.9 Intake and Output 01/07/18 01/08/18 19:00 07:00 Intake Total 430 ml 470 ml Output Total 1300 ml 1000 ml Balance -870 ml -530 ml Intake Oral 250 ml IV Total 430 ml 220 ml Output Urine Total 1300 ml 1000 ml # Bowel Movements 3 3 Laboratory Tests Test 01/08/18 04:20 White Blood Count 17.2 K/UL (4.8-10.8) H Red Blood Count 5.58 M/UL (4.70-6.10) Hemoglobin 15.8 G/DL (14.2-18.0) Hematocrit 51.0 % (42.0-52.0) Mean Corpuscular Volume 91 FL (80-99) Mean Corpuscular Hemoglobin 28.3 PG (27.0-31.0) Mean Corpuscular Hemoglobin Concent 30.9 G/DL (32.0-36.0) L Red Cell Distribution Width 15.9 % (11.6-14.8) H Platelet Count 143 K/UL (150-450) L Mean Platelet Volume 9.4 FL (6.5-10.1) Neutrophils (%) (Auto) 84.4 % (45.0-75.0) H Lymphocytes (%) (Auto) 6.5 % (20.0-45.0) L Monocytes (%) (Auto) 7.5 % (1.0-10.0) Eosinophils (%) (Auto) 0.8 % (0.0-3.0) Basophils (%) (Auto) 0.8 % (0.0-2.0) Sodium Level 141 MMOL/L (136-145) Potassium Level 5.1 MMOL/L (3.5-5.1) Chloride Level 104 MMOL/L (98-107) Carbon Dioxide Level 29 MMOL/L (21-32) Anion Gap 8 mmol/L (5-15) Blood Urea Nitrogen 43 mg/dL (7-18) H Creatinine 2.2 MG/DL (0.55-1.30) H Estimat Glomerular Filtration Rate mL/min (>60) Glucose Level 154 MG/DL (74-106) H Calcium Level 8.9 MG/DL (8.5-10.1) Total Bilirubin 0.9 MG/DL (0.2-1.0) Aspartate Amino Transf (AST/SGOT) 33 U/L (15-37) Alanine Aminotransferase (ALT/SGPT) 30 U/L (12-78) Alkaline Phosphatase 63 U/L (46-116) Total Protein 6.9 G/DL (6.4-8.2) Albumin 2.9 G/DL (3.4-5.0) L Globulin 4.0 g/dL Albumin/Globulin Ratio 0.7 (1.0-2.7) L Microbiology Date/Time Source Procedure Growth Status 01/06/18 13:58 Blood Blood Culture - Preliminary NO GROWTH AFTER 24 HOURS Resulted 01/06/18 13:48 Blood Blood Culture - Preliminary NO GROWTH AFTER 24 HOURS Resulted 01/06/18 12:14 Stool Clostridium difficile Toxin Assay - Final Complete Objective HEAD AND NECK: Mild JVD. LUNGS: Decreased breath sounds. CARDIOVASCULAR: Regular S1 and S2 with no gallop or murmur. ABDOMEN: Soft. EXTREMITIES: 2+ pitting edema. Andre Howard MD January 08, 2018 15:41
[2018-01-08 16:00] VITALS: BP 131/80
[2018-01-08] MEDS ORDERED: OLANZapine 2.5mg tab ORAL PRN (17:57)
[2018-01-08 20:00] VITALS: BP 109/67
[2018-01-08] MEDS: Atorvastatin 80mg tab ORAL SCH (22:49)
[2018-01-08] MEDS: Dyna-Hex 2% Top Sol 2oz TOPIC SCH (22:51)
[2018-01-09] VITALS: BP 148/83
[2018-01-09 04:00] VITALS: BP 118/70
[2018-01-09] MEDS: Piperacillin/Tazobactam 2.25 GM in D5W 110 ML IVPB SCH ×2 (04:19→10:22)
[2018-01-09] MEDS: NovoLOG Insulin Flexpen SUBQ SCH ×4 (06:30→21:00)
[2018-01-09] MEDS: HydrALAZINE 50mg tab ORAL SCH ×3 (07:07→22:00)
[2018-01-09 07:50] VITALS: BP 110/55
[2018-01-09] MEDS: Tamsulosin 0.4mg cap ORAL SCH ×2 (08:31→22:04)
[2018-01-09] MEDS: Heparin 5000 units/ml inj SUBQ SCH ×2 (08:32→22:10)
--- NOTE | 2018-01-09 10:17 | Nephrology Progress Note ---
Assessment/Plan Problem List: (1) CKD (chronic kidney disease) (2) CHF (congestive heart failure) (3) Cardiomyopathy (4) Proteinuria Assessment no labs today WBCs elevated CKD- Cr lower chronic systolic heart failure Right heart failuer Edema due to above and possible venous insuf Non-ischemic cardiomyopathy no cad by cath 2016 History of DVT pulmonary HTN h/o Thrombocytopenia HTN Proteinuria previous echo: Severe global left ventricular hypokinesis with septal thinning. Left ventricular ejection fraction estimated to be 10-15 %. Plan Per ID mag and K supplement as needed Optimize cardiac status, monitor renal parameters Avoid nephrotoxics per orders Subjective ROS Limited/Unobtainable: No Constitutional: Reports: malaise Objective Objective Last 24 Hour Vital Signs Date Time Temp Pulse Resp B/P (MAP) Pulse Ox O2 Delivery O2 Flow Rate FiO2 01/09/18 08:31 86 110/55 01/09/18 08:00 70 01/09/18 07:50 96.3 86 18 110/55 94 Room Air 96.3 01/09/18 07:10 118/87 01/09/18 07:07 118/70 01/09/18 04:00 66 01/09/18 04:00 97.0 82 20 118/70 96 Room Air 97.0 01/09/18 00:00 97.3 92 20 148/83 94 Room Air 97.3 01/09/18 00:00 64 01/08/18 23:27 148/83 01/08/18 22:50 88 99/67 01/08/18 20:00 64 01/08/18 20:00 97.0 88 20 109/67 94 Room Air 97.0 01/08/18 18:09 131/80 01/08/18 16:13 88 01/08/18 16:00 97.6 86 21 131/80 100 Room Air 97.6 01/08/18 13:56 116/78 01/08/18 12:35 116/78 01/08/18 12:00 97.7 84 20 116/78 96 Room Air 97.7 01/08/18 12:00 91 Intake and Output 01/08/18 01/09/18 19:00 07:00 Intake Total 520 ml Output Total 600 ml Balance -80 ml Intake Oral 300 ml IV Total 220 ml Output Urine Total 600 ml # Voids 1 3 # Bowel Movements 6 1 Height (Feet): 5 Height (Inches): 10.00 Weight (Pounds): 160 General Appearance: no apparent distress Cardiovascular: normal rate Respiratory/Chest: decreased breath sounds Objective no other change BHARATHI LOVE January 09, 2018 10:17
--- NOTE | 2018-01-09 11:24 | General Progress Note ---
Assessment/Plan Status: stable Assessment/Plan 1. Thrombocytopenia, potentially secondary to underlying medications. Has been seen by Cardiology Service, meds have been reviewed. Currently in the 100-150k range --> Also can be 2/2 sepsis, most recently on pressor --> hepatitis and hiv are negative, US of the abdomen is pending, to r/o hsm and cirrhosis is negative 2. Anemia due to underlying chronic disease. Continue to closely monitor. --> at this time, hold off on extensive workup unless hgb less than 10 --> currently above 11 3. Leukocytosis. Likely related to underlying ID issue. ? sepsis, ? reactive to cva, valeria, aspiration risk, abdomen benign, ? uti, ua with 1 + le and moderate bacteria but urine culture mixed ==> Continue antibiotics as per primary team and Infectious Disease. --> abx as per ID, antibiotics on board 4. Acute cerebrovascular accident, noted on MRI. Further management per neurology 5. Shortness of breath . 6. Sepsis 7. Hypertension. Elevated blood pressure. --> further management per cards Subjective Date patient seen: January 09, 2018 Allergies: Coded Allergies: No Known Allergies (Unverified , 01/09/14) All Systems: reviewed and negative except above Subjective Patient seen awake resting in bed. No fever, chills, sob. Objective Last 24 Hour Vital Signs Date Time Temp Pulse Resp B/P (MAP) Pulse Ox O2 Delivery O2 Flow Rate FiO2 01/09/18 08:31 86 110/55 01/09/18 08:00 70 01/09/18 07:50 96.3 86 18 110/55 94 Room Air 96.3 01/09/18 07:10 118/87 01/09/18 07:07 118/70 01/09/18 04:00 66 01/09/18 04:00 97.0 82 20 118/70 96 Room Air 97.0 01/09/18 00:00 97.3 92 20 148/83 94 Room Air 97.3 01/09/18 00:00 64 01/08/18 23:27 148/83 01/08/18 22:50 88 99/67 01/08/18 20:00 64 01/08/18 20:00 97.0 88 20 109/67 94 Room Air 97.0 01/08/18 18:09 131/80 01/08/18 16:13 88 5/26/18 16:00 97.6 86 21 131/80 100 Room Air 97.6 01/08/18 13:56 116/78 01/08/18 12:35 116/78 01/08/18 12:00 97.7 84 20 116/78 96 Room Air 97.7 01/08/18 12:00 91 Intake and Output 01/08/18 01/09/18 18:59 06:59 Intake Total 520 ml Output Total 600 ml Balance -80 ml Intake Oral 300 ml IV Total 220 ml Output Urine Total 600 ml # Voids 1 3 # Bowel Movements 6 1 Height (Feet): 5 Height (Inches): 10.00 Weight (Pounds): 160 General Appearance: no apparent distress EENT: normal ENT inspection Neck: supple Cardiovascular: normal rate Respiratory/Chest: lungs clear Abdomen: non tender Mahendra Marinelli MD January 09, 2018 11:24
[2018-01-09 11:42] VITALS: BP 104/70
[2018-01-09] MEDS ORDERED: Gastrograffin 30ml ORAL PRN (11:45)
--- NOTE | 2018-01-09 12:08 | Infectious Diseases Prog Note ---
Assessment/Plan Assessment/Plan ASSESSMENT AND PLAN: 1. leukocytosis, ? sepsis, valeria, ? uti, ua worse, ? fungemia, recent steroids - leukocytosis improving - zosyn and diflucan - day # 3 - f/u on urine culture, f/u labs - ct without obvious abscess mentioned, ? hematoma, blood cultures negative - if leukocytosis continues to improve then cleared for defibrillator - d/w RN 2. The patient has elevated creatinine with acute kidney injury, chronic renal failure, and anemia. 3. Acute cerebrovascular accident per history and exam + MRI noted - treatment per primary team and neurology, tpa given 4. Chronic obstructive pulmonary disease and asthma exacerbation. 5. Shortness of breath. 6. Steroids. 7. Congestive heart failure. 8. Leg edema. 9. Hypertension. 10. Blood pressure treatment per primary consultants. 11. No known allergies. 12. Social history negative. 13. Family history noncontributory. 14. MAR was noted. 15. Case discussed with RN. 16. Case discussed and communicated with Diane Silva NP for Dr. Holliday. 17. Continue treatment per primary consultants. 18. Notes and records were noted. 19. Orders were entered and communicated. 20. Case was discussed the patient's family. 21. We will follow with you. Subjective Constitutional: Denies: fever HEENT: Denies: congestion Respiratory: Denies: shortness of breath Cardiovascular: Denies: chest pain Gastrointestinal/Abdominal: Denies: nausea, vomiting, diarrhea Genitourinary: Reports: other - + reagan Neurologic: Denies: headache Psychiatric: Denies: depression Skin: Denies: rash Hematologic: Denies: bleeding Musculoskeletal: Denies: pain Allergies: Coded Allergies: No Known Allergies (Unverified , 01/09/14) Objective Vital Signs Last 24 Hour Vital Signs Date Time Temp Pulse Resp B/P (MAP) Pulse Ox O2 Delivery O2 Flow Rate FiO2 01/09/18 11:42 96.5 84 18 104/70 93 Room Air 96.5 01/09/18 11:27 104/70 01/09/18 08:31 86 110/55 01/09/18 08:00 70 01/09/18 07:50 96.3 86 18 110/55 94 Room Air 96.3 01/09/18 07:10 118/87 01/09/18 07:07 118/70 01/09/18 04:00 66 01/09/18 04:00 97.0 82 20 118/70 96 Room Air 97.0 01/09/18 00:00 97.3 92 20 148/83 94 Room Air 97.3 01/09/18 00:00 64 01/08/18 23:27 148/83 01/08/18 22:50 88 99/67 01/08/18 20:00 64 01/08/18 20:00 97.0 88 20 109/67 94 Room Air 97.0 01/08/18 18:09 131/80 01/08/18 16:13 88 01/08/18 16:00 97.6 86 21 131/80 100 Room Air 97.6 01/08/18 13:56 116/78 01/08/18 12:35 116/78 01/08/18 12:00 97.7 84 20 116/78 96 Room Air 97.7 01/08/18 12:00 91 Height (Feet): 5 Height (Inches): 10.00 Weight (Pounds): 160 General Appearance: no acute distress HEENT: normocephalic, atraumatic, anicteric, mucous membranes moist Respiratory/Chest: lungs clear, normal breath sounds, no respiratory distress, no accessory muscle use Cardiovascular: normal rate, regular rhythm, no gallop/murmur, no JVD Abdomen: normal bowel sounds, soft, non tender, no organomegaly, non distended Genitourinary: other - + reagan - urine fairly clear Extremities: no cyanosis Skin: no rash Neurologic/Psychiatric: government gauger 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 Acute small area of right parietal infarct. No hemorrhage. No mass effect or midline shift. 2. Involutional changes with small vessel disease. Chest -x-ray - 01/01 and 01/04 - no consolidation Chest x-ray - 01/06 - copd, no consolidation identified, report noted CT - abdomen/pelvis - IMPRESSION: 1. The right psoas muscle is prominent when compared to the left. There is some mild infiltration of the fat adjacent to the right psoas muscle. Some mild increased density is suspected within the right psoas muscle. This is suspicious for a hematoma. The suspected hematoma cannot be from the adjacent musculature. The right psoas muscle and suspected hematoma together measure approximately 4.8 cm in maximum transverse dimensions. Evaluation for active bleeding cannot be performed without IV contrast. An infectious process or neoplastic process cannot be excluded radiographically. 2. Cardiomegaly. 3. Diverticulosis without evidence for diverticulitis. 01/06 - Chest x-ray - copd (report noted) Microbiology Date/Time Source Procedure Growth Status 01/06/18 13:58 Blood Blood Culture - Preliminary NO GROWTH AFTER 48 HOURS Resulted 01/06/18 12:14 Stool Clostridium difficile Toxin Assay - Final Complete 01/01/18 01:15 Urine,Clean Catch Urine Culture - Final Mixed Gram Positive Organism Complete Microbiology Date/Time Source Procedure Growth Status 01/06/18 13:58 Blood Blood Culture - Preliminary NO GROWTH AFTER 48 HOURS Resulted 01/06/18 13:48 Blood Blood Culture - Preliminary NO GROWTH AFTER 48 HOURS Resulted 01/06/18 12:14 Stool Clostridium difficile Toxin Assay - Final Complete Labs Test 01/06/18 15:54 01/07/18 04:00 01/07/18 11:34 01/08/18 04:20 Urine Color Pale yellow Urine Appearance Clear Urine pH 8 (4.5-8.0) Urine Specific [place] 1.010 (1.005-1.035) Urine Protein Negative (NEGATIVE) Urine Glucose (UA) Negative (NEGATIVE) Urine Ketones Negative (NEGATIVE) Urine Occult Blood 1+ (NEGATIVE) Urine Nitrite Negative (NEGATIVE) Urine Bilirubin Negative (NEGATIVE) Urine Urobilinogen Normal MG/DL (0.0-1.0) Urine Leukocyte Esterase 3+ (NEGATIVE) Urine RBC 2-4 /HPF (0 - 0) Urine WBC 5-10 /HPF (0 - 0) Urine Squamous Epithelial Cells Few /LPF (NONE/OCC) Urine Bacteria Few /HPF (NONE) White Blood Count 22.5 K/UL (4.8-10.8) 20.0 K/UL (4.8-10.8) 17.2 K/UL (4.8-10.8) Red Blood Count 5.24 M/UL (4.70-6.10) 5.45 M/UL (4.70-6.10) 5.58 M/UL (4.70-6.10) Hemoglobin 15.0 G/DL (14.2-18.0) 15.6 G/DL (14.2-18.0) 15.8 G/DL (14.2-18.0) Hematocrit 47.9 % (42.0-52.0) 48.5 % (42.0-52.0) 51.0 % (42.0-52.0) Mean Corpuscular Volume 91 FL (80-99) 89 FL (80-99) 91 FL (80-99) Mean Corpuscular Hemoglobin 28.6 PG (27.0-31.0) 28.7 PG (27.0-31.0) 28.3 PG (27.0-31.0) Mean Corpuscular Hemoglobin Concent 31.4 G/DL (32.0-36.0) 32.2 G/DL (32.0-36.0) 30.9 G/DL (32.0-36.0) Red Cell Distribution Width 15.8 % (11.6-14.8) 16.1 % (11.6-14.8) 15.9 % (11.6-14.8) Platelet Count 146 K/UL (150-450) 169 K/UL (150-450) 143 K/UL (150-450) Mean Platelet Volume 9.2 FL (6.5-10.1) 10.7 FL (6.5-10.1) 9.4 FL (6.5-10.1) Neutrophils (%) (Auto) % (45.0-75.0) % (45.0-75.0) 84.4 % (45.0-75.0) Lymphocytes (%) (Auto) % (20.0-45.0) % (20.0-45.0) 6.5 % (20.0-45.0) Monocytes (%) (Auto) % (1.0-10.0) % (1.0-10.0) 7.5 % (1.0-10.0) Eosinophils (%) (Auto) % (0.0-3.0) % (0.0-3.0) 0.8 % (0.0-3.0) Basophils (%) (Auto) % (0.0-2.0) % (0.0-2.0) 0.8 % (0.0-2.0) Differential Total Cells Counted 100 100 Neutrophils % (Manual) 89 % (45-75) 87 % (45-75) Lymphocytes % (Manual) 4 % (20-45) 7 % (20-45) Monocytes % (Manual) 7 % (1-10) 6 % (1-10) Eosinophils % (Manual) 0 % (0-3) 0 % (0-3) Basophils % (Manual) 0 % (0-2) 0 % (0-2) Band Neutrophils 0 % (0-8) 0 % (0-8) Platelet Estimate Decreased Adequate Platelet Morphology Normal Normal Anisocytosis 1+ Sodium Level 142 MMOL/L (136-145) 141 MMOL/L (136-145) Potassium Level 4.9 MMOL/L (3.5-5.1) 5.1 MMOL/L (3.5-5.1) Chloride Level 104 MMOL/L (98-107) 104 MMOL/L (98-107) Carbon Dioxide Level 30 MMOL/L (21-32) 29 MMOL/L (21-32) Anion Gap 8 mmol/L (5-15) 8 mmol/L (5-15) Blood Urea Nitrogen 39 mg/dL (7-18) 43 mg/dL (7-18) Creatinine 2.1 MG/DL (0.55-1.30) 2.2 MG/DL (0.55-1.30) Estimat Glomerular Filtration Rate mL/min (>60) mL/min (>60) Glucose Level 111 MG/DL (74-106) 154 MG/DL (74-106) Uric Acid 7.2 MG/DL (2.6-7.2) Calcium Level 8.7 MG/DL (8.5-10.1) 8.9 MG/DL (8.5-10.1) Phosphorus Level 3.2 MG/DL (2.5-4.9) Magnesium Level 1.7 MG/DL (1.8-2.4) Total Bilirubin 0.8 MG/DL (0.2-1.0) 0.9 MG/DL (0.2-1.0) Aspartate Amino Transf (AST/SGOT) 28 U/L (15-37) 33 U/L (15-37) Alanine Aminotransferase (ALT/SGPT) 27 U/L (12-78) 30 U/L (12-78) Alkaline Phosphatase 61 U/L (46-116) 63 U/L (46-116) Pro-B-Type Natriuretic Peptide 7303 pg/mL (0-125) Total Protein 6.5 G/DL (6.4-8.2) 6.9 G/DL (6.4-8.2) Albumin 2.7 G/DL (3.4-5.0) 2.9 G/DL (3.4-5.0) Globulin 3.8 g/dL 4.0 g/dL Albumin/Globulin Ratio 0.7 (1.0-2.7) 0.7 (1.0-2.7) Current Medications Medications (Trade) Dose Ordered Sig/Denny Route PRN Reason Start Time Stop Time Status Last Admin Dose Admin Acetaminophen (Tylenol) 650 mg Q4H PRN ORAL Mild Pain (Pain Scale 1-3) 01/08/18 20:00 01/31/18 11:59 Acetaminophen (Tylenol) 650 mg Q4H PRN ORAL T>100.5 01/08/18 20:00 01/31/18 11:59 Allopurinol (Allopurinol) 300 mg DAILY ORAL 01/09/18 09:00 02/03/18 08:59 01/09/18 08:31 Atorvastatin Calcium (Lipitor) 80 mg BEDTIME ORAL 01/08/18 21:00 02/03/18 20:59 01/08/18 22:49 Carvedilol (Coreg) 3.125 mg EVERY 12 HOURS ORAL 01/08/18 21:00 01/31/18 20:59 01/09/18 08:31 Chlorhexidine Gluconate (Caitlin-Hex 2%) 1 applic DAILY@1999 TOPIC 01/08/18 20:00 02/01/18 19:59 01/08/18 22:51 Dextrose (Dextrose 50%) 25 ml STAT PRN IV Hypoglycemia 01/08/18 17:56 02/07/18 17:55 Dextrose (Dextrose 50%) 50 ml STAT PRN IV Hypoglycemia 01/08/18 17:56 02/07/18 17:55 Diatrizoate Meglum/ Diatrizoate Sod (Gastrografin) 30 ml NOW PRN ORAL Radiology Procedure 01/09/18 11:45 5/27/18 23:59 Fluconazole/ Sodium Chloride 100 ml @ 100 mls/hr Q24H IV 01/09/18 09:00 01/14/18 23:59 01/09/18 09:20 Furosemide (Lasix) 40 mg EVERY 12 HOURS IV 01/08/18 21:00 02/03/18 20:59 01/09/18 08:32 Heparin Sodium (Porcine) (Heparin 5000 units/ml) 5,000 units EVERY 12 HOURS SUBQ 01/08/18 21:00 02/03/18 20:59 01/09/18 08:32 Hydralazine HCl (Apresoline) 50 mg Q8HR ORAL 01/08/18 22:00 01/31/18 13:59 01/09/18 07:07 Insulin Aspart (NovoLOG) BEFORE MEALS AND HS SUBQ 01/08/18 21:00 02/03/18 16:29 01/09/18 11:29 Isosorbide Dinitrate (Isordil) 10 mg Q6HR ORAL 01/08/18 18:00 01/31/18 17:59 01/09/18 11:27 Olanzapine (ZyPREXA) 2.5 mg HSPRN PRN ORAL Agitation 01/08/18 17:57 02/07/18 17:56 Ondansetron HCl (Zofran) 4 mg Q6H PRN IVP Nausea & Vomiting 01/08/18 17:58 01/31/18 17:57 Pantoprazole (Protonix) 40 mg EVERY 12 HOURS ORAL 01/08/18 21:00 01/31/18 20:59 01/09/18 08:31 Piperacillin Sod/ Tazobactam Sod 2.25 gm/Dextrose 110 ml @ 220 mls/hr Q6H IVPB 01/08/18 22:00 01/09/18 12:00 01/09/18 10:22 Piperacillin Sod/ Tazobactam Sod 3.375 gm/Sodium Chloride 110 ml @ 27.5 mls/hr Q8HR@0200,1000,1800 IVPB 01/09/18 18:00 01/16/18 17:59 Tamsulosin HCl (Flomax) 0.4 mg Q12HR ORAL 01/08/18 21:00 02/07/18 20:59 01/09/18 08:31 Ted Gonzalez MD January 09, 2018 12:08
[2018-01-09 15:33] VITALS: BP 100/63
[2018-01-09] MEDS: Zosyn 3.375gm q8h **Extended infusion IVPB SCH ×2 (17:18)
--- NOTE | 2018-01-09 17:27 | Internal Med Progress Note ---
Subjective Physician Name Whitney Cullen Attending Physician Ajay Holliday MD Current Medications Medications (Trade) Dose Ordered Sig/Denny Route PRN Reason Start Time Stop Time Status Last Admin Dose Admin Acetaminophen (Tylenol) 650 mg Q4H PRN ORAL Mild Pain (Pain Scale 1-3) 01/08/18 20:00 01/31/18 11:59 Acetaminophen (Tylenol) 650 mg Q4H PRN ORAL T>100.5 01/08/18 20:00 01/31/18 11:59 Allopurinol (Allopurinol) 300 mg DAILY ORAL 01/09/18 09:00 02/03/18 08:59 01/09/18 08:31 Atorvastatin Calcium (Lipitor) 80 mg BEDTIME ORAL 01/08/18 21:00 02/03/18 20:59 01/08/18 22:49 Carvedilol (Coreg) 3.125 mg EVERY 12 HOURS ORAL 01/08/18 21:00 01/31/18 20:59 01/09/18 08:31 Chlorhexidine Gluconate (Caitlin-Hex 2%) 1 applic DAILY@2000 TOPIC 01/08/18 20:00 02/01/18 19:59 01/08/18 22:51 Dextrose (Dextrose 50%) 25 ml STAT PRN IV Hypoglycemia 01/08/18 17:56 02/07/18 17:55 Dextrose (Dextrose 50%) 50 ml STAT PRN IV Hypoglycemia 01/08/18 17:56 02/07/18 17:55 Diatrizoate Meglum/ Diatrizoate Sod (Gastrografin) 30 ml NOW PRN ORAL Radiology Procedure 01/09/18 11:45 01/09/18 23:59 Fluconazole/ Sodium Chloride 100 ml @ 100 mls/hr Q24H IV 01/09/18 09:00 01/14/18 23:59 01/09/18 09:20 Furosemide (Lasix) 40 mg EVERY 12 HOURS IV 01/08/18 21:00 02/03/18 20:59 01/09/18 08:32 Heparin Sodium (Porcine) (Heparin 5000 units/ml) 5,000 units EVERY 12 HOURS SUBQ 01/08/18 21:00 02/03/18 20:59 01/09/18 08:32 Hydralazine HCl (Apresoline) 50 mg Q8HR ORAL 01/08/18 22:00 01/31/18 13:59 01/09/18 07:07 Insulin Aspart (NovoLOG) BEFORE MEALS AND HS SUBQ 01/08/18 21:00 02/03/18 16:29 01/09/18 11:29 Isosorbide Dinitrate (Isordil) 10 mg Q6HR ORAL 01/08/18 18:00 01/31/18 17:59 01/09/18 11:27 Olanzapine (ZyPREXA) 2.5 mg HSPRN PRN ORAL Agitation 01/08/18 17:57 02/07/18 17:56 Ondansetron HCl (Zofran) 4 mg Q6H PRN IVP Nausea & Vomiting 01/08/18 17:58 01/31/18 17:57 Pantoprazole (Protonix) 40 mg EVERY 12 HOURS ORAL 01/08/18 21:00 01/31/18 20:59 01/09/18 08:31 Piperacillin Sod/ Tazobactam Sod 3.375 gm/Sodium Chloride 110 ml @ 27.5 mls/hr Q8HR@0200,1000,1800 IVPB 01/09/18 18:00 01/16/18 17:59 01/09/18 17:18 Tamsulosin HCl (Flomax) 0.4 mg Q12HR ORAL 01/08/18 21:00 02/07/18 20:59 01/09/18 08:31 Allergies: Coded Allergies: No Known Allergies (Unverified , 01/09/14) Objective Last Vital Signs Date Time Temp Pulse Resp B/P (MAP) Pulse Ox O2 Delivery O2 Flow Rate FiO2 01/09/18 16:58 100/63 01/09/18 16:00 58 01/09/18 15:33 97.2 18 93 Room Air 97.2 01/06/18 08:16 21 Laboratory Tests Test 01/09/18 11:30 C-Reactive Protein, Quantitative 0.8 mg/dL (0.00-0.90) Intake and Output 01/08/18 01/09/18 19:00 07:00 Intake Total 520 ml Output Total 600 ml Balance -80 ml Intake Oral 300 ml IV Total 220 ml Output Urine Total 600 ml # Voids 1 3 # Bowel Movements 6 1 Assessment/Plan Assessment/Plan Assessment/Plan Assessment/Plan Problem List: (1) CKD (chronic kidney disease) ICD Codes: N18.9 - CKD (chronic kidney disease) SNOMED: 735534423 Qualifiers: Qualified Codes: N18.9 - Chronic kidney disease, unspecified (2) HTN (hypertension) ICD Codes: I10 - HTN (hypertension) SNOMED: 25374675 (3) CHF (congestive heart failure) ICD Codes: I50.9 - CHF (congestive heart failure) SNOMED: 46743170 (4) Respiratory distress ICD Codes: R06.00 - Dyspnea, unspecified SNOMED: 645103505 (5) Dyspnea ICD Codes: R06.00 - Dyspnea, unspecified SNOMED: 887300685 (6) Asthma exacerbation ICD Codes: J45.901 - Unspecified asthma with (acute) exacerbation SNOMED: 683993018 (7) FIONA (acute kidney injury) ICD Codes: N17.9 - Acute kidney failure, unspecified SNOMED: 86831089 (8) CHF exacerbation ICD Codes: I50.9 - Heart failure, unspecified SNOMED: 64235376 Qualifiers: Qualified Codes: I50.9 - Heart failure, unspecified (9) CVA (cerebral vascular accident) ICD Codes: I63.9 - Cerebral infarction, unspecified SNOMED: 722888068 Qualifiers: Qualified Codes: I63.9 - Cerebral infarction, unspecified (10) Peripheral edema ICD Codes: R60.9 - Edema, unspecified SNOMED: 131753922 (11) Cardiomyopathy ICD Codes: I42.9 - Cardiomyopathy SNOMED: 97194614 (12) Malnutrition ICD Codes: E46 - Malnutrition SNOMED: 5701563 (13) Hypokalemia ICD Codes: E87.6 - Hypokalemia SNOMED: 09108724 (14) Prediabetes ICD Codes: R73.03 - Prediabetes SNOMED: 175354576 (15) HLD (hyperlipidemia) ICD Codes: E78.5 - Hyperlipidemia, unspecified SNOMED: 70800510 (16) Leukocytosis ICD Codes: D72.829 - Elevated white blood cell count, unspecified SNOMED: 833846670, 706488128 Status: stable, progressing Assessment/Plan #acute right parietal infarct - Neurology consulted, appreciate rec's - No need for transfer to stroke center at this time per neurology - NIH stroke scale last night was 2 prior to TPA. Repeat NIH stroke scale is 5 - s/p tPA given at 0300 on 01/01 - CT head on 01/01 at 0100 was negative. - MRI brain showing acute small right parietal infarct with no hemorrhage, midline shift, or mass effect - continue permissive hypertension to systolic 160-180s x 24 hours - MRA brain and neck without contrast showing attenuated appearance of the distal right middle cerebral artery likely due to technical issues. Also with short segment stenotic appearance of the right proximal ICA, cannot exclude high -grade stenosis. - carotid U/S negative - repeat CT with no bleed, showing acute infarct. also with some corresponding edema without significant mass effect --> start HSQ - ECHO with doppler showing 25-30% EF, pulmonary hypertension, and left ventricular hypokinesis - bilateral venous duplex negative - check lipid panel and A1c - ST/PT/OT eval - Passed swallow eval, on pureed. video swallow study done, f/u results - neurochecks q4hr - LDL 83. Start lipitor 80mg qhs - will start ASA 81mg after defibb placement #Acute asthma exacerbation - prednisone 40mg PO qd x 5 days (D5/5). discontinued as patient's wheezing resolved - duonebs ATC q6hr - ABGs #Sepsis, unknown etiology - ID consulted, appreciate rec's - s/p IV CTX and flagyl per ID. CTX continued per ID. Flagyl dc'ed on 01/04 - CXR negative. Repeat CXR negative - trend CBC - WBC uptrended from 18-->[address] a/p with oral contrast. Continue IV abx per ID. f/u repeat UA/UCx, CXR, blood cx x 2, and check C. diff. #Acute on chronic systolic CHF / severe cardiomyopathy - cardiology consulted, appreciate rec's - strict I&O - 1.5 L fluid restriction - lasix 80mg IV BID --> lasix 60 IV BID --> lasix 40mg IV BID - permissive HTN with systolic 160-180s given acute CVA till 01/02 - dobutamine gtt titrated down to 1 mcg/min - s/p PICC line 01/03 - EF 25-30% - cardiology recommending defibrillator placement. Will be scheduled once cleared per ID. Discussed risks/benefits with family. Family agreeable. Cleared per neurology. #FIONA due to cardiorenal syndrome - nephrology consulted, appreciate rec's - trend Cr, downtrending - Cr 2.0 --> 2.1 - check urine lytes - avoid IVF given CHF exacerbation #Hypokalemia - replete electrolytes prn. monitor BMP and Mg #HLD - start lipitor 80mg #Prediabetes - A1c 6.2 - will start MURIEL for now - if Cr stabilizes, will discharge patient on metformin/glipizide DVT ppx: HSQ Discussed case in detail with nursing staff, cardiology, nephrology, neurology, ID, transfer center, patient, and family. Case d/w Dr. Holliday/Dr. Quintero who agrees to the plan above. Disposition: ARU vs. SNF vs. home with home health I spent a total of 43 minutes on this patient's case with greater than 50% spent on care and coordination of the patient. Subjective Subjective Date patient seen: January 07, 2018 Time patient seen: 12:00 Allergies: Coded Allergies: No Known Allergies (Unverified , 01/09/14) no acute events overnight Denies chest pain or shortness of breath No nausea or emesis Objective Objective Last 24 Hour Vital Signs Date Time Temp Pulse Resp B/P (MAP) Pulse Ox O2 Delivery O2 Flow Rate FiO2 01/07/18 13:04 127/76 01/07/18 12:00 127/76 01/07/18 08:41 77 127/76 01/07/18 08:00 83 01/07/18 08:00 97.2 81 20 127/65 98 Room Air 97.2 01/07/18 05:40 127/76 01/07/18 05:40 127/76 01/07/18 04:00 77 01/07/18 04:00 98.2 74 20 127/76 96 Room Air 98.2 01/07/18 00:06 125/79 01/07/18 00:00 98.2 82 20 125/79 96 Room Air 98.2 01/07/18 00:00 95 01/06/18 21:26 128/81 01/06/18 21:25 92 128/81 01/06/18 20:00 95 01/06/18 20:00 98.1 92 20 128/81 95 Room Air 98.1 01/06/18 17:39 126/73 01/06/18 16:00 89 01/06/18 16:00 97.5 89 22 110/69 96 Room Air 97.5 Intake and Output 01/06/18 01/07/18 19:00 07:00 Intake Total 30.261 ml Output Total 1565 ml Balance 30.261 ml -1565 ml IV Total 30.261 ml Output Urine Total 1565 ml # Bowel Movements 3 2 Laboratory Tests 01/07/18 04:00: White Blood Count 22.5*H, Red Blood Count 5.24, Hemoglobin 15.0, Hematocrit 47.9 , Mean Corpuscular Volume 91, Mean Corpuscular Hemoglobin 28.6, Mean Corpuscular Hemoglobin Concent 31.4L, Red Cell Distribution Width 15.8H, Platelet Count 146L, Mean Platelet Volume 9.2, Neutrophils (%) (Auto) , Lymphocytes (%) (Auto) , Monocytes (%) (Auto) , Eosinophils (%) (Auto) , Basophils (%) (Auto) , Differential Total Cells Counted 100, Neutrophils % ( Manual) 89H, Lymphocytes % (Manual) 4L, Monocytes % (Manual) 7, Eosinophils % ( Manual) 0, Basophils % (Manual) 0, Band Neutrophils 0, Platelet Estimate DecreasedL, Platelet Morphology Normal, Anisocytosis 1+, Sodium Level 142, Potassium Level 4.9, Chloride Level 104, Carbon Dioxide Level 30, Anion Gap 8, Blood Urea Nitrogen 39H, Creatinine 2.1H, Estimat Glomerular Filtration Rate , Glucose Level 111H, Uric Acid 7.2, Calcium Level 8.7, Phosphorus Level 3.2, Magnesium Level 1.7L, Total Bilirubin 0.8, Aspartate Amino Transf (AST/SGOT) 28 , Alanine Aminotransferase (ALT/SGPT) 27, Alkaline Phosphatase 61, Pro-B-Type Natriuretic Peptide 7303H, Total Protein 6.5, Albumin 2.7L, Globulin 3.8, Albumin/Globulin Ratio 0.7L Height (Feet): 5 Height (Inches): 10.00 Weight (Pounds): 163 General Appearance: no apparent distress, alert EENT: PERRL/EOMI, normal ENT inspection Neck: non-tender, normal alignment, supple Cardiovascular: normal peripheral pulses, normal rate, regular rhythm Respiratory/Chest: chest wall non-tender, lungs clear, normal breath sounds Abdomen: normal bowel sounds, non tender, soft Extremities: normal range of motion, non-tender, normal inspection Neurologic: psychiatrist II-XII grossly normal, alert, oriented x 3, other - 3/5 strength to LUE and LLE Skin: normal pigmentation, Whitney Cullen M.D. January 09, 2018 17:27
[2018-01-09 20:00] VITALS: BP 106/69
[2018-01-09] MEDS: Dyna-Hex 2% Top Sol 2oz TOPIC SCH (22:03)
[2018-01-09] MEDS: Atorvastatin 80mg tab ORAL SCH (22:04)
[2018-01-10] VITALS: BP 97/76
[2018-01-10] MEDS: Zosyn 3.375gm q8h **Extended infusion IVPB SCH ×6 (02:32→18:08)
[2018-01-10 04:00] VITALS: BP 120/77
[2018-01-10] MEDS: HydrALAZINE 50mg tab ORAL SCH ×3 (05:50→20:55)
[2018-01-10] MEDS: NovoLOG Insulin Flexpen SUBQ SCH ×4 (05:52→20:54)
[2018-01-10 07:30] LABS: BASOPHILS % (AUTO) 0.6 % (0.0-2.0); EOSINOPHILS % (AUTO) 1.4 % (0.0-3.0); HEMATOCRIT 47.4 % (42.0-52.0); HEMOGLOBIN 14.9 G/DL (14.2-18.0); MEAN CORPUSCULAR VOLUME 91 FL (80-99); MONOCYTES % (AUTO) 9.9 % (1.0-10.0); NEUTROPHILS % (AUTO) 74.1 % (45.0-75.0); PLATELET COUNT 148 K/UL (150-450); RED CELL DISTRIBUTION WIDTH 16.1 % (11.6-14.8); WHITE BLOOD COUNT 13.7 K/UL (4.8-10.8)
[2018-01-10 07:59] LABS: ALANINE AMINOTRANSFERASE 38 U/L (12-78); ALBUMIN 2.6 G/DL (3.4-5.0); ALBUMIN/GLOBULIN RATIO 0.6 (1.0-2.7); ALKALINE PHOSPHATASE 58 U/L (46-116); ANION GAP 8 mmol/L (5-15); ASPARTATE AMINO TRANSFERASE 36 U/L (15-37); BILIRUBIN,TOTAL 0.8 MG/DL (0.2-1.0); BLOOD UREA NITROGEN 41 mg/dL (7-18); CALCIUM 9.1 MG/DL (8.5-10.1); CARBON DIOXIDE 29 MMOL/L (21-32); CHLORIDE 103 MMOL/L (98-107); CREATININE 2.9 MG/DL (0.55-1.30); PHOSPHORUS 4.4 MG/DL (2.5-4.9); POTASSIUM 4.5 MMOL/L (3.5-5.1); SODIUM 140 MMOL/L (136-145)
[2018-01-10 08:00] VITALS: BP 122/67
--- NOTE | 2018-01-10 08:32 | General Progress Note ---
Assessment/Plan Assessment/Plan 1. Thrombocytopenia, potentially secondary to underlying medications versus infection. Has been seen by Cardiology Service, meds have been reviewed. Currently in the 100-150k range --> hepatitis and hiv are negative, US of the abdomen is pending, to r/o hsm and cirrhosis is negative ---> transfuse if plt count ever <20k 2. Anemia due to underlying chronic disease. Continue to closely monitor. --> at this time, hold off on extensive workup unless hgb less than 10 --> currently above 11 3. Leukocytosis. Likely related to underlying ID issue. ? sepsis, ? reactive to cva, valeria, aspiration risk, abdomen benign, ? uti, ua with 1 + le and moderate bacteria but urine culture mixed --> Continue antibiotics as per primary team and Infectious Disease prn --> abx as per ID, antibiotics on board 4. Acute cerebrovascular accident, noted on MRI. Further management per neurology 5. Shortness of breath seen by pulm --> appreciate their recs 6. Sepsis 7. Hypertension. Elevated blood pressure. --> further management per cards Subjective Constitutional: Denies: no symptoms, chills, diaphoresis, fever, malaise, weakness, other HEENT: Denies: no symptoms, eye pain, blurred vision, tearing, double vision, ear pain, ear discharge, nose pain, nose congestion, throat pain, throat swelling, mouth pain, mouth swelling, other Cardiovascular: Denies: no symptoms, chest pain, edema, irregular heart rate, lightheadedness, palpitations, syncope, other Respiratory: Denies: no symptoms, cough, orthopnea, shortness of breath, SOB with excertion, SOB at rest, sputum, stridor, wheezing, other Gastrointestinal/Abdominal: Denies: no symptoms, abdomen distended, abdominal pain, black stools, tarry stools, blood in stool, constipated, diarrhea, difficulty swallowing, nausea, poor appetite, poor fluid intake, rectal bleeding , vomiting, other Genitourinary: Denies: no symptoms, burning, discharge, frequency, flank pain, hematuria, incontinence, pain, urgency, other Neurologic/Psychiatric: Denies: no symptoms, anxiety, depressed, emotional problems, headache, numbness, paresthesia, pre-existing deficit, seizure, tingling, tremors, weakness, other Endocrine: Denies: no symptoms, excessive sweating, flushing, intolerance to cold, intolerance to heat, increased hunger, increased thirst, increased urine, unexplained weight gain, unexplained weight loss, other Hematologic/Lymphatic: Denies: no symptoms, anemia, easy bleeding, easy bruising, other Allergies: Coded Allergies: No Known Allergies (Unverified , 01/09/14) Subjective Patient seen awake resting in bed. may require snf placement Objective Last 24 Hour Vital Signs Date Time Temp Pulse Resp B/P (MAP) Pulse Ox O2 Delivery O2 Flow Rate FiO2 01/10/18 05:51 97/73 01/10/18 05:50 98/75 01/10/18 04:00 97.2 89 20 120/77 93 Room Air 97.2 01/10/18 04:00 54 01/10/18 00:00 97.5 58 20 97/76 93 Room Air 97.5 01/10/18 00:00 54 01/10/18 00:00 93/68 01/09/18 22:05 94 106/69 01/09/18 22:00 106/69 01/09/18 20:00 61 01/09/18 20:00 97.5 94 20 106/69 93 Room Air 97.5 01/09/18 16:58 100/63 01/09/18 16:00 58 01/09/18 15:33 97.2 88 18 100/63 93 Room Air 97.2 01/09/18 13:06 104/70 01/09/18 12:00 56 01/09/18 11:42 96.5 84 18 104/70 93 Room Air 96.5 01/09/18 11:27 104/70 01/09/18 08:31 86 110/55 Intake and Output 01/09/18 01/10/18 19:00 07:00 Intake Total 577.5 ml Output Total 150 ml 600 ml Balance 427.5 ml -600 ml Intake Oral 340 ml IV Total 237.5 ml Output Urine Total 150 ml 600 ml # Bowel Movements 2 1 Laboratory Tests 01/09/18 11:30: C-Reactive Protein, Quantitative 0.8 01/10/18 05:05: White Blood Count 13.7H, Red Blood Count 5.20, Hemoglobin 14.9, Hematocrit 47.4 , Mean Corpuscular Volume 91, Mean Corpuscular Hemoglobin 28.6, Mean Corpuscular Hemoglobin Concent 31.4L, Red Cell Distribution Width 16.1H, Platelet Count 148L, Mean Platelet Volume 9.0, Neutrophils (%) (Auto) 74.1, Lymphocytes (%) (Auto) 14.0L, Monocytes (%) (Auto) 9.9, Eosinophils (%) (Auto) 1.4, Basophils (%) (Auto) 0.6, Sodium Level 140, Potassium Level 4.5, Chloride Level 103, Carbon Dioxide Level 29, Anion Gap 8, Blood Urea Nitrogen 41H, Creatinine 2.9H, Estimat Glomerular Filtration Rate , Glucose Level 81, Uric Acid 4.7, Calcium Level 9.1, Phosphorus Level 4.4, Magnesium Level 1.8, Total Bilirubin 0.8, Aspartate Amino Transf (AST/SGOT) 36, Alanine Aminotransferase ( ALT/SGPT) 38, Alkaline Phosphatase 58, Pro-B-Type Natriuretic Peptide 2015H, Total Protein 6.8, Albumin 2.6L, Globulin 4.2, Albumin/Globulin Ratio 0.6L Height (Feet): 5 Height (Inches): 10.00 Weight (Pounds): 160 General Appearance: alert EENT: normal ENT inspection Neck: supple Cardiovascular: regular rhythm Respiratory/Chest: no accessory muscle use Extremities: non-tender Edema: 1+ Leg (L), 1+ Pedal (L) Neurologic: alert Skin: warm/dry Mahendra Marinelli MD January 10, 2018 08:32
[2018-01-10] MEDS: Tamsulosin 0.4mg cap ORAL SCH ×2 (09:30→20:52)
[2018-01-10] MEDS: Heparin 5000 units/ml inj SUBQ SCH ×2 (09:32→20:54)
[2018-01-10 12:00] VITALS: BP 121/74
--- NOTE | 2018-01-10 12:20 | Cardiac Electrophysiology PN ---
Assessment/Plan Assessment/Plan 1. 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 On Lasix 40 mg IV bid, Coreg 3.125 mg b.i.d., hydralazine 50 mg tid , Isordil 10 mg every 6 hours Awaiting ID clearance to proceed with defibrillator implantation Does not need BIV pacing as his QRS duration is less than 120 milliseconds. 2. Renal failure. Mildly improved from 3.7 to 2.0. F/U by Dr. Dennis 3. Elevated liver function tests likely due to right heart failure and hepatic congestion. 4. Elevated white count of 22k down to 13 , On Abx per Dr Miryam NIÑO RN Subjective Subjective Feeling better. WBC decreasing. Objective Last 24 Hour Vital Signs Date Time Temp Pulse Resp B/P (MAP) Pulse Ox O2 Delivery O2 Flow Rate FiO2 01/10/18 09:30 77 122/76 01/10/18 08:00 97.3 81 20 122/67 93 Room Air 97.3 01/10/18 05:51 97/73 01/10/18 05:50 98/75 01/10/18 04:00 97.2 89 20 120/77 93 Room Air 97.2 01/10/18 04:00 54 01/10/18 00:00 97.5 58 20 97/76 93 Room Air 97.5 01/10/18 00:00 54 01/10/18 00:00 93/68 01/09/18 22:05 94 106/69 01/09/18 22:00 106/69 01/09/18 20:00 61 01/09/18 20:00 97.5 94 20 106/69 93 Room Air 97.5 01/09/18 16:58 100/63 01/09/18 16:00 58 01/09/18 15:33 97.2 88 18 100/63 93 Room Air 97.2 01/09/18 13:06 104/70 Intake and Output 01/09/18 01/10/18 19:00 07:00 Intake Total 577.5 ml Output Total 150 ml 600 ml Balance 427.5 ml -600 ml Intake Oral 340 ml IV Total 237.5 ml Output Urine Total 150 ml 600 ml # Bowel Movements 2 1 Laboratory Tests Test 01/10/18 05:05 White Blood Count 13.7 K/UL (4.8-10.8) H Red Blood Count 5.20 M/UL (4.70-6.10) Hemoglobin 14.9 G/DL (14.2-18.0) Hematocrit 47.4 % (42.0-52.0) Mean Corpuscular Volume 91 FL (80-99) Mean Corpuscular Hemoglobin 28.6 PG (27.0-31.0) Mean Corpuscular Hemoglobin Concent 31.4 G/DL (32.0-36.0) L Red Cell Distribution Width 16.1 % (11.6-14.8) H Platelet Count 148 K/UL (150-450) L Mean Platelet Volume 9.0 FL (6.5-10.1) Neutrophils (%) (Auto) 74.1 % (45.0-75.0) Lymphocytes (%) (Auto) 14.0 % (20.0-45.0) L Monocytes (%) (Auto) 9.9 % (1.0-10.0) Eosinophils (%) (Auto) 1.4 % (0.0-3.0) Basophils (%) (Auto) 0.6 % (0.0-2.0) Sodium Level 140 MMOL/L (136-145) Potassium Level 4.5 MMOL/L (3.5-5.1) Chloride Level 103 MMOL/L (98-107) Carbon Dioxide Level 29 MMOL/L (21-32) Anion Gap 8 mmol/L (5-15) Blood Urea Nitrogen 41 mg/dL (7-18) H Creatinine 2.9 MG/DL (0.55-1.30) H Estimat Glomerular Filtration Rate mL/min (>60) Glucose Level 81 MG/DL (74-106) Uric Acid 4.7 MG/DL (2.6-7.2) Calcium Level 9.1 MG/DL (8.5-10.1) Phosphorus Level 4.4 MG/DL (2.5-4.9) Magnesium Level 1.8 MG/DL (1.8-2.4) Total Bilirubin 0.8 MG/DL (0.2-1.0) Aspartate Amino Transf (AST/SGOT) 36 U/L (15-37) Alanine Aminotransferase (ALT/SGPT) 38 U/L (12-78) Alkaline Phosphatase 58 U/L (46-116) Pro-B-Type Natriuretic Peptide 2015 pg/mL (0-125) H Total Protein 6.8 G/DL (6.4-8.2) Albumin 2.6 G/DL (3.4-5.0) L Globulin 4.2 g/dL Albumin/Globulin Ratio 0.6 (1.0-2.7) L Microbiology Date/Time Source Procedure Growth Status 01/09/18 12:55 Urine,Clean Catch Urine Culture - Preliminary NO GROWTH Resulted Objective HEAD AND NECK: Mild JVD. LUNGS: Decreased breath sounds. CARDIOVASCULAR: Regular S1 and S2 with no gallop or murmur. ABDOMEN: Soft. EXTREMITIES: 2+ pitting edema. Andre Howard MD January 10, 2018 12:20
--- NOTE | 2018-01-10 14:58 | Nephrology Progress Note ---
Assessment/Plan Problem List: (1) CKD (chronic kidney disease) (2) CHF (congestive heart failure) (3) Cardiomyopathy (4) Proteinuria Assessment no labs todayCr up to 2.9 WBCs elevated CKD- Cr lower chronic systolic heart failure Right heart failuer Edema due to above and possible venous insuf Non-ischemic cardiomyopathy no cad by cath 2016 History of DVT pulmonary HTN h/o Thrombocytopenia HTN Proteinuria previous echo: Severe global left ventricular hypokinesis with septal thinning. Left ventricular ejection fraction estimated to be 10-15 %. Plan Per ID mag and K supplement as needed Optimize cardiac status, monitor renal parameters Avoid nephrotoxics per orders Subjective ROS Limited/Unobtainable: No Constitutional: Reports: malaise Objective Objective Last 24 Hour Vital Signs Date Time Temp Pulse Resp B/P (MAP) Pulse Ox O2 Delivery O2 Flow Rate FiO2 01/10/18 13:06 121/74 01/10/18 13:05 121/74 01/10/18 12:00 75 01/10/18 12:00 97.2 79 18 121/74 95 Room Air 97.2 01/10/18 09:30 77 122/76 01/10/18 08:00 67 01/10/18 08:00 97.3 81 20 122/67 93 Room Air 97.3 01/10/18 05:51 97/73 01/10/18 05:50 98/75 01/10/18 04:00 97.2 89 20 120/77 93 Room Air 97.2 01/10/18 04:00 54 01/10/18 00:00 97.5 58 20 97/76 93 Room Air 97.5 01/10/18 00:00 54 01/10/18 00:00 93/68 01/09/18 22:05 94 106/69 01/09/18 22:00 106/69 01/09/18 20:00 61 01/09/18 20:00 97.5 94 20 106/69 93 Room Air 97.5 01/09/18 16:58 100/63 01/09/18 16:00 58 01/09/18 15:33 97.2 88 18 100/63 93 Room Air 97.2 Intake and Output 01/09/18 01/10/18 19:00 07:00 Intake Total 577.5 ml Output Total 150 ml 600 ml Balance 427.5 ml -600 ml Intake Oral 340 ml IV Total 237.5 ml Output Urine Total 150 ml 600 ml # Bowel Movements 2 1 Laboratory Tests 01/10/18 05:05: White Blood Count 13.7H, Red Blood Count 5.20, Hemoglobin 14.9, Hematocrit 47.4 , Mean Corpuscular Volume 91, Mean Corpuscular Hemoglobin 28.6, Mean Corpuscular Hemoglobin Concent 31.4L, Red Cell Distribution Width 16.1H, Platelet Count 148L, Mean Platelet Volume 9.0, Neutrophils (%) (Auto) 74.1, Lymphocytes (%) (Auto) 14.0L, Monocytes (%) (Auto) 9.9, Eosinophils (%) (Auto) 1.4, Basophils (%) (Auto) 0.6, Sodium Level 140, Potassium Level 4.5, Chloride Level 103, Carbon Dioxide Level 29, Anion Gap 8, Blood Urea Nitrogen 41H, Creatinine 2.9H, Estimat Glomerular Filtration Rate , Glucose Level 81, Uric Acid 4.7, Calcium Level 9.1, Phosphorus Level 4.4, Magnesium Level 1.8, Total Bilirubin 0.8, Aspartate Amino Transf (AST/SGOT) 36, Alanine Aminotransferase ( ALT/SGPT) 38, Alkaline Phosphatase 58, Pro-B-Type Natriuretic Peptide 2015H, Total Protein 6.8, Albumin 2.6L, Globulin 4.2, Albumin/Globulin Ratio 0.6L Height (Feet): 5 Height (Inches): 10.00 Weight (Pounds): 160 General Appearance: no apparent distress Objective no other change BHARATHI LOVE January 10, 2018 14:58
[2018-01-10 16:00] VITALS: BP 112/68
[2018-01-10] MEDS ORDERED: Tubing IV Secondary IV ONE (16:28)
--- NOTE | 2018-01-10 19:21 | Infectious Diseases Prog Note ---
Assessment/Plan Assessment/Plan ASSESSMENT AND PLAN: 1. leukocytosis, ? sepsis, valeria, ? uti, ua worse, ? fungemia, recent steroids - leukocytosis improving - zosyn and diflucan - day # 4 - f/u labs, f/u urine culture negative but patient on prior abx - ct without obvious abscess mentioned, ? hematoma, blood cultures negative - cleared for defibrillator - d/w Diane Silva NP 2. The patient has elevated creatinine with acute kidney injury, chronic renal failure, and anemia. 3. Acute cerebrovascular accident per history and exam + MRI noted - treatment per primary team and neurology, tpa given 4. Chronic obstructive pulmonary disease and asthma exacerbation. 5. Shortness of breath. 6. Steroids. 7. Congestive heart failure. 8. Leg edema. 9. Hypertension. 10. Blood pressure treatment per primary consultants. 11. No known allergies. 12. Social history negative. 13. Family history noncontributory. 14. MAR was noted. 15. Case discussed with RN. 16. Case discussed and communicated with Diane Silva NP for Dr. Holliday. 17. Continue treatment per primary consultants. 18. Notes and records were noted. 19. Orders were entered and communicated. 20. Case was discussed the patient's family. 21. We will follow with you. Subjective Constitutional: Reports: fatigue; Denies: fever HEENT: Denies: congestion Respiratory: Denies: shortness of breath Cardiovascular: Denies: chest pain Gastrointestinal/Abdominal: Denies: nausea, vomiting, diarrhea Genitourinary: Reports: other - + reagan, no cva pain Neurologic: Denies: headache Psychiatric: Denies: depression Skin: Denies: rash Hematologic: Denies: bleeding Musculoskeletal: Denies: pain Allergies: Coded Allergies: No Known Allergies (Unverified , 01/09/14) Objective Vital Signs Last 24 Hour Vital Signs Date Time Temp Pulse Resp B/P (MAP) Pulse Ox O2 Delivery O2 Flow Rate FiO2 01/10/18 18:08 112/68 01/10/18 16:00 85 01/10/18 16:00 97.3 80 18 112/68 95 Room Air 97.3 01/10/18 13:06 121/74 01/10/18 13:05 121/74 01/10/18 12:00 75 01/10/18 12:00 97.2 79 18 121/74 95 Room Air 97.2 01/10/18 09:30 77 122/76 01/10/18 08:00 67 01/10/18 08:00 97.3 81 20 122/67 93 Room Air 97.3 01/10/18 05:51 97/73 01/10/18 05:50 98/75 01/10/18 04:00 97.2 89 20 120/77 93 Room Air 97.2 01/10/18 04:00 54 01/10/18 00:00 97.5 58 20 97/76 93 Room Air 97.5 01/10/18 00:00 54 01/10/18 00:00 93/68 01/09/18 22:05 94 106/69 01/09/18 22:00 106/69 01/09/18 20:00 61 01/09/18 20:00 97.5 94 20 106/69 93 Room Air 97.5 Height (Feet): 5 Height (Inches): 10.00 Weight (Pounds): 160 General Appearance: no acute distress HEENT: normocephalic, atraumatic, anicteric, mucous membranes moist Respiratory/Chest: lungs clear, normal breath sounds, no respiratory distress, respiratory distress Cardiovascular: normal rate, regular rhythm, no gallop/murmur, no JVD Abdomen: normal bowel sounds, soft, non tender, no organomegaly, non distended Genitourinary: other - + reagan - urine clear Extremities: no cyanosis Skin: no rash Neurologic/Psychiatric: electroformer II-XII grossly normal, alert, oriented x 3 Lymphatic: no neck adenopathy Musculoskeletal: no effusion Objective MRI Brain: IMPRESSION: 1. Acute small area of right parietal infarct. No hemorrhage. No mass effect or midline shift. 2. Involutional changes with small vessel disease. Chest -x-ray - 01/01 and 01/04 - no consolidation Chest x-ray - 01/06 - copd, no consolidation identified, report noted CT - abdomen/pelvis - IMPRESSION: 1. The right psoas muscle is prominent when compared to the left. There is some mild infiltration of the fat adjacent to the right psoas muscle. Some mild increased density is suspected within the right psoas muscle. This is suspicious for a hematoma. The suspected hematoma cannot be from the adjacent musculature. The right psoas muscle and suspected hematoma together measure approximately 4.8 cm in maximum transverse dimensions. Evaluation for active bleeding cannot be performed without IV contrast. An infectious process or neoplastic process cannot be excluded radiographically. 2. Cardiomegaly. 3. Diverticulosis without evidence for diverticulitis. 01/06 - Chest x-ray - copd (report noted) Microbiology Date/Time Source Procedure Growth Status 01/06/18 13:58 Blood Blood Culture - Preliminary NO GROWTH AFTER 72 HOURS Resulted 01/06/18 12:14 Stool Clostridium difficile Toxin Assay - Final Complete 01/09/18 12:55 Urine,Clean Catch Urine Culture - Preliminary NO GROWTH Resulted Microbiology Date/Time Source Procedure Growth Status 01/09/18 12:55 Urine,Clean Catch Urine Culture - Preliminary NO GROWTH Resulted Laboratory Tests Test 01/10/18 05:05 White Blood Count 13.7 K/UL (4.8-10.8) H Red Blood Count 5.20 M/UL (4.70-6.10) Hemoglobin 14.9 G/DL (14.2-18.0) Hematocrit 47.4 % (42.0-52.0) Mean Corpuscular Volume 91 FL (80-99) Mean Corpuscular Hemoglobin 28.6 PG (27.0-31.0) Mean Corpuscular Hemoglobin Concent 31.4 G/DL (32.0-36.0) L Red Cell Distribution Width 16.1 % (11.6-14.8) H Platelet Count 148 K/UL (150-450) L Mean Platelet Volume 9.0 FL (6.5-10.1) Neutrophils (%) (Auto) 74.1 % (45.0-75.0) Lymphocytes (%) (Auto) 14.0 % (20.0-45.0) L Monocytes (%) (Auto) 9.9 % (1.0-10.0) Eosinophils (%) (Auto) 1.4 % (0.0-3.0) Basophils (%) (Auto) 0.6 % (0.0-2.0) Sodium Level 140 MMOL/L (136-145) Potassium Level 4.5 MMOL/L (3.5-5.1) Chloride Level 103 MMOL/L (98-107) Carbon Dioxide Level 29 MMOL/L (21-32) Anion Gap 8 mmol/L (5-15) Blood Urea Nitrogen 41 mg/dL (7-18) H Creatinine 2.9 MG/DL (0.55-1.30) H Estimat Glomerular Filtration Rate mL/min (>60) Glucose Level 81 MG/DL (74-106) Uric Acid 4.7 MG/DL (2.6-7.2) Calcium Level 9.1 MG/DL (8.5-10.1) Phosphorus Level 4.4 MG/DL (2.5-4.9) Magnesium Level 1.8 MG/DL (1.8-2.4) Total Bilirubin 0.8 MG/DL (0.2-1.0) Aspartate Amino Transf (AST/SGOT) 36 U/L (15-37) Alanine Aminotransferase (ALT/SGPT) 38 U/L (12-78) Alkaline Phosphatase 58 U/L (46-116) Pro-B-Type Natriuretic Peptide 2015 pg/mL (0-125) H Total Protein 6.8 G/DL (6.4-8.2) Albumin 2.6 G/DL (3.4-5.0) L Globulin 4.2 g/dL Albumin/Globulin Ratio 0.6 (1.0-2.7) L Current Medications Medications (Trade) Dose Ordered Sig/Denny Route PRN Reason Start Time Stop Time Status Last Admin Dose Admin Acetaminophen (Tylenol) 650 mg Q4H PRN ORAL Mild Pain (Pain Scale 1-3) 01/08/18 20:00 01/31/18 11:59 Acetaminophen (Tylenol) 650 mg Q4H PRN ORAL T>100.5 01/08/18 20:00 01/31/18 11:59 Allopurinol (Allopurinol) 300 mg DAILY ORAL 01/09/18 09:00 02/03/18 08:59 01/10/18 09:30 Atorvastatin Calcium (Lipitor) 80 mg BEDTIME ORAL 01/08/18 21:00 02/03/18 20:59 01/09/18 22:04 Carvedilol (Coreg) 3.125 mg EVERY 12 HOURS ORAL 01/08/18 21:00 01/31/18 20:59 01/10/18 09:30 Chlorhexidine Gluconate (Caitlin-Hex 2%) 1 applic DAILY@1999 TOPIC 01/08/18 20:00 02/01/18 19:59 01/09/18 22:03 Dextrose (Dextrose 50%) 25 ml STAT PRN IV Hypoglycemia 01/08/18 17:56 02/07/18 17:55 Dextrose (Dextrose 50%) 50 ml STAT PRN IV Hypoglycemia 01/08/18 17:56 02/07/18 17:55 Fluconazole/ Sodium Chloride 100 ml @ 100 mls/hr Q24H IV 01/09/18 09:00 01/14/18 23:59 01/10/18 09:29 Furosemide (Lasix) 40 mg DAILY IV 01/11/18 09:00 02/03/18 20:59 Heparin Sodium (Porcine) (Heparin 5000 units/ml) 5,000 units EVERY 12 HOURS SUBQ 01/08/18 21:00 02/03/18 20:59 01/10/18 09:32 Hydralazine HCl (Apresoline) 50 mg Q8HR ORAL 01/08/18 22:00 01/31/18 13:59 01/10/18 13:06 Insulin Aspart (NovoLOG) BEFORE MEALS AND HS SUBQ 01/08/18 21:00 02/03/18 16:29 01/09/18 11:29 Isosorbide Dinitrate (Isordil) 10 mg Q6HR ORAL 01/08/18 18:00 01/31/18 17:59 01/10/18 18:08 Olanzapine (ZyPREXA) 2.5 mg HSPRN PRN ORAL Agitation 01/08/18 17:57 02/07/18 17:56 Ondansetron HCl (Zofran) 4 mg Q6H PRN IVP Nausea & Vomiting 01/08/18 17:58 01/31/18 17:57 Pantoprazole (Protonix) 40 mg EVERY 12 HOURS ORAL 01/08/18 21:00 01/31/18 20:59 01/10/18 09:30 Piperacillin Sod/ Tazobactam Sod 3.375 gm/Sodium Chloride 110 ml @ 27.5 mls/hr Q8HR@0200,1000,1800 IVPB 01/09/18 18:00 01/16/18 17:59 01/10/18 18:08 Tamsulosin HCl (Flomax) 0.4 mg Q12HR ORAL 01/08/18 21:00 02/07/18 20:59 01/10/18 09:30 Ted Gonzalez MD January 10, 2018 19:21
[2018-01-10 20:00] VITALS: BP 97/59
[2018-01-10] MEDS: Dyna-Hex 2% Top Sol 2oz TOPIC SCH (20:52)
[2018-01-10] MEDS: Atorvastatin 80mg tab ORAL SCH (20:52)
--- NOTE | 2018-01-10 23:03 | General Progress Note ---
Assessment/Plan Problem List: (1) CKD (chronic kidney disease) ICD Codes: N18.9 - CKD (chronic kidney disease) SNOMED: 707880558 Qualifiers: Qualified Codes: N18.9 - Chronic kidney disease, unspecified (2) HTN (hypertension) ICD Codes: I10 - HTN (hypertension) SNOMED: 16893593 (3) CHF (congestive heart failure) ICD Codes: I50.9 - CHF (congestive heart failure) SNOMED: 84804320 (4) Respiratory distress ICD Codes: R06.00 - Dyspnea, unspecified SNOMED: 235540794 (5) Dyspnea ICD Codes: R06.00 - Dyspnea, unspecified SNOMED: 621449509 (6) Asthma exacerbation ICD Codes: J45.901 - Unspecified asthma with (acute) exacerbation SNOMED: 858667524 (7) FIONA (acute kidney injury) ICD Codes: N17.9 - Acute kidney failure, unspecified SNOMED: 07597325 (8) CHF exacerbation ICD Codes: I50.9 - Heart failure, unspecified SNOMED: 38662898 Qualifiers: Qualified Codes: I50.9 - Heart failure, unspecified (9) CVA (cerebral vascular accident) ICD Codes: I63.9 - Cerebral infarction, unspecified SNOMED: 940862418 Qualifiers: Qualified Codes: I63.9 - Cerebral infarction, unspecified (10) Peripheral edema ICD Codes: R60.9 - Edema, unspecified SNOMED: 446787412 (11) Cardiomyopathy ICD Codes: I42.9 - Cardiomyopathy SNOMED: 04999465 (12) Malnutrition ICD Codes: E46 - Malnutrition SNOMED: 9009736 (13) Hypokalemia ICD Codes: E87.6 - Hypokalemia SNOMED: 04752760 (14) Prediabetes ICD Codes: R73.03 - Prediabetes SNOMED: 367003023 (15) HLD (hyperlipidemia) ICD Codes: E78.5 - Hyperlipidemia, unspecified SNOMED: 24732485 (16) Leukocytosis ICD Codes: D72.829 - Elevated white blood cell count, unspecified SNOMED: 601792257, 308359700 Status: stable, progressing Assessment/Plan #acute right parietal infarct - Neurology consulted, appreciate rec's - No need for transfer to stroke center at this time per neurology - NIH stroke scale last night was 2 prior to TPA. Repeat NIH stroke scale is 5 - s/p tPA given at 0300 on 01/01 - CT head on 01/01 at 0100 was negative. - MRI brain showing acute small right parietal infarct with no hemorrhage, midline shift, or mass effect - continue permissive hypertension to systolic 160-180s x 24 hours - MRA brain and neck without contrast showing attenuated appearance of the distal right middle cerebral artery likely due to technical issues. Also with short segment stenotic appearance of the right proximal ICA, cannot exclude high -grade stenosis. - carotid U/S negative - repeat CT with no bleed, showing acute infarct. also with some corresponding edema without significant mass effect --> start HSQ - ECHO with doppler showing 25-30% EF, pulmonary hypertension, and left ventricular hypokinesis - bilateral venous duplex negative - check lipid panel and A1c - ST/PT/OT eval - Passed swallow eval, on pureed. video swallow study done, f/u results - neurochecks q4hr - LDL 83. Start lipitor 80mg qhs - will start ASA 81mg after defibb placement #Acute asthma exacerbation - prednisone 40mg PO qd x 5 days (D5/5). discontinued as patient's wheezing resolved - duonebs ATC q6hr - ABGs #Sepsis, unknown etiology - ID consulted, appreciate rec's - s/p IV CTX and flagyl per ID. CTX continued per ID. Flagyl dc'ed on 01/04 - CXR negative. Repeat CXR negative - trend CBC - WBC downtrending to [address] a/p showing questionable hematoma. C. diff negative. F/u urine cx. CXR negative. Blood cx NGTD. #Acute on chronic systolic CHF / severe cardiomyopathy - cardiology consulted, appreciate rec's - strict I&O - 1.5 L fluid restriction - lasix 80mg IV BID --> lasix 60 IV BID --> lasix 40mg IV BID - permissive HTN with systolic 160-180s given acute CVA till 01/02 - dobutamine gtt titrated down to 1 mcg/min - s/p PICC line 01/03 - EF 25-30% - cardiology recommending defibrillator placement. Will be scheduled once cleared per ID. Discussed risks/benefits with family. Family agreeable. Cleared per neurology. #FIONA due to cardiorenal syndrome - nephrology consulted, appreciate rec's - trend Cr, downtrending - Cr 2.0 --> 2.1 - check urine lytes - avoid IVF given CHF exacerbation #Hypokalemia - replete electrolytes prn. monitor BMP and Mg #HLD - start lipitor 80mg #Prediabetes - A1c 6.2 - will start MURIEL for now - if Cr stabilizes, will discharge patient on metformin/glipizide DVT ppx: HSQ Discussed case in detail with nursing staff, cardiology, nephrology, neurology, ID, transfer center, patient, and family. Case d/w Dr. Hollidya/Dr. Quintero who agrees to the plan above. Disposition: ARU vs. SNF vs. home with home health I spent a total of 43 minutes on this patient's case with greater than 50% spent on care and coordination of the patient. Subjective Date patient seen: January 10, 2018 Time patient seen: 12:44 Allergies: Coded Allergies: No Known Allergies (Unverified , 01/09/14) Subjective - WBC down to 13 today - on zosyn and diflucan - CT a/p showing questionable hematoma - AF, HDS - no sob, cp Objective Last 24 Hour Vital Signs Date Time Temp Pulse Resp B/P (MAP) Pulse Ox O2 Delivery O2 Flow Rate FiO2 01/10/18 20:55 97/59 01/10/18 20:55 89 97/59 01/10/18 18:08 112/68 01/10/18 16:00 85 01/10/18 16:00 97.3 80 18 112/68 95 Room Air 97.3 01/10/18 13:06 121/74 01/10/18 13:05 121/74 01/10/18 12:00 75 01/10/18 12:00 97.2 79 18 121/74 95 Room Air 97.2 01/10/18 09:30 77 122/76 01/10/18 08:00 67 01/10/18 08:00 97.3 81 20 122/67 93 Room Air 97.3 01/10/18 05:51 97/73 01/10/18 05:50 98/75 01/10/18 04:00 97.2 89 20 120/77 93 Room Air 97.2 01/10/18 04:00 54 01/10/18 00:00 97.5 58 20 97/76 93 Room Air 97.5 01/10/18 00:00 54 01/10/18 00:00 93/68 Intake and Output 01/09/18 01/10/18 19:00 07:00 Intake Total 577.5 ml Output Total 150 ml 600 ml Balance 427.5 ml -600 ml Intake Oral 340 ml IV Total 237.5 ml Output Urine Total 150 ml 600 ml # Bowel Movements 2 1 Laboratory Tests 01/10/18 05:05: White Blood Count 13.7H, Red Blood Count 5.20, Hemoglobin 14.9, Hematocrit 47.4 , Mean Corpuscular Volume 91, Mean Corpuscular Hemoglobin 28.6, Mean Corpuscular Hemoglobin Concent 31.4L, Red Cell Distribution Width 16.1H, Platelet Count 148L, Mean Platelet Volume 9.0, Neutrophils (%) (Auto) 74.1, Lymphocytes (%) (Auto) 14.0L, Monocytes (%) (Auto) 9.9, Eosinophils (%) (Auto) 1.4, Basophils (%) (Auto) 0.6, Sodium Level 140, Potassium Level 4.5, Chloride Level 103, Carbon Dioxide Level 29, Anion Gap 8, Blood Urea Nitrogen 41H, Creatinine 2.9H, Estimat Glomerular Filtration Rate , Glucose Level 81, Uric Acid 4.7, Calcium Level 9.1, Phosphorus Level 4.4, Magnesium Level 1.8, Total Bilirubin 0.8, Aspartate Amino Transf (AST/SGOT) 36, Alanine Aminotransferase ( ALT/SGPT) 38, Alkaline Phosphatase 58, Pro-B-Type Natriuretic Peptide 2015H, Total Protein 6.8, Albumin 2.6L, Globulin 4.2, Albumin/Globulin Ratio 0.6L Height (Feet): 5 Height (Inches): 10.00 Weight (Pounds): 160 General Appearance: no apparent distress, alert EENT: PERRL/EOMI, normal ENT inspection Neck: non-tender, normal alignment, supple Cardiovascular: normal peripheral pulses, normal rate, regular rhythm Respiratory/Chest: chest wall non-tender, lungs clear, normal breath sounds Abdomen: normal bowel sounds, non tender, soft Edema: mild edema Neurologic: head cook II-XII grossly normal, no motor/sensory deficits, alert, oriented x 3, pronator drift, other - left side neglect Skin: normal pigmentation, warm/dry Diane Silva NP January 10, 2018 23:02
[2018-01-11] VITALS: BP 132/78
[2018-01-11] MEDS: Zosyn 3.375gm q8h **Extended infusion IVPB SCH ×6 (02:03→17:16)
[2018-01-11 04:00] VITALS: BP 120/64
[2018-01-11] MEDS: HydrALAZINE 50mg tab ORAL SCH ×3 (06:00→22:00)
[2018-01-11] MEDS: NovoLOG Insulin Flexpen SUBQ SCH ×4 (06:30→20:48)
[2018-01-11 08:00] VITALS: BP 122/69
--- NOTE | 2018-01-11 08:11 | General Progress Note ---
Assessment/Plan Assessment/Plan #. Thrombocytopenia, potentially secondary to underlying medications versus infection. Has been seen by Cardiology Service, meds have been reviewed. Currently in the 100-150k range --> hepatitis and hiv are negative, US of the abdomen is pending, to r/o hsm and cirrhosis is negative ---> transfuse if plt count ever <20k #. Leukocytosis. Likely related to underlying ID issue. ? sepsis, ? reactive to cva, valeria, aspiration risk, abdomen benign, ? uti, ua with 1 + le and moderate bacteria but urine culture mixed --> Continue antibiotics as per primary team and Infectious Disease prn --> abx as per ID, antibiotics on board #. Anemia due to underlying chronic disease. Continue to closely monitor. significantly improved --> at this time, hold off on extensive workup unless hgb less than 10 #. Acute cerebrovascular accident, noted on MRI. Further management per neurology #. Shortness of breath seen by pulm --> appreciate their recs #. Sepsis ID service is following #. Hypertension. Elevated blood pressure. --> further management per cards Subjective Allergies: Coded Allergies: No Known Allergies (Unverified , 01/09/14) Subjective Agitated this am may require snf placement Objective Last 24 Hour Vital Signs Date Time Temp Pulse Resp B/P (MAP) Pulse Ox O2 Delivery O2 Flow Rate FiO2 01/11/18 06:00 97/59 01/11/18 06:00 97/59 01/11/18 04:00 80 01/11/18 04:00 97.4 82 20 120/64 100 Room Air 97.4 01/11/18 00:22 97/59 01/11/18 00:00 97.6 82 20 132/78 95 Room Air 97.6 01/11/18 00:00 82 01/10/18 20:55 97/59 01/10/18 20:55 89 97/59 01/10/18 20:00 97.2 89 20 [id number] 95 Room Air 97.2 01/10/18 18:08 112/68 01/10/18 16:00 85 01/10/18 16:00 97.3 80 18 112/68 95 Room Air 97.3 01/10/18 13:06 121/74 01/10/18 13:05 121/74 01/10/18 12:00 75 01/10/18 12:00 97.2 79 18 121/74 95 Room Air 97.2 01/10/18 09:30 77 122/76 Intake and Output 01/10/18 01/11/18 19:00 07:00 Output Total 900 ml Balance -900 ml Output Urine Total 900 ml # Voids 5 # Bowel Movements 2 1 Height (Feet): 5 Height (Inches): 10.00 Weight (Pounds): 161 General Appearance: alert EENT: TMs normal Neck: supple Cardiovascular: regular rhythm Respiratory/Chest: normal breath sounds Abdomen: no organomegaly Extremities: non-tender Edema: 1+ Leg (L), 1+ Leg (R) Edema: mild edema Neurologic: alert Mahendra Marinelli MD January 11, 2018 08:11
[2018-01-11] MEDS: Tamsulosin 0.4mg cap ORAL SCH ×2 (09:04→20:42)
[2018-01-11] MEDS: Heparin 5000 units/ml inj SUBQ SCH ×2 (09:05→20:44)
--- NOTE | 2018-01-11 09:46 | Cardiac Electrophysiology PN ---
Assessment/Plan Assessment/Plan 1. 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 On Lasix 40 mg IV bid, Coreg 3.125 mg b.i.d., hydralazine 50 mg tid , Isordil 10 mg every 6 hours Awaiting ID clearance to proceed with defibrillator implantation Does not need BIV pacing as his QRS duration is less than 120 milliseconds. 2. Renal failure. Mildly improved from 3.7 to 2.0. F/U by Dr. Dennis 3. Elevated liver function tests likely due to right heart failure and hepatic congestion. 4. Elevated white count of 22k down to 13 , On Abx per Dr Witt WBC today is pending DW RN Subjective Subjective Feeling better. WBC today is pending Objective Last 24 Hour Vital Signs Date Time Temp Pulse Resp B/P (MAP) Pulse Ox O2 Delivery O2 Flow Rate FiO2 01/11/18 09:04 99 122/69 01/11/18 06:00 97/59 01/11/18 06:00 97/59 01/11/18 04:00 80 01/11/18 04:00 97.4 82 20 120/64 100 Room Air 97.4 01/11/18 00:22 97/59 01/11/18 00:00 97.6 82 20 132/78 95 Room Air 97.6 01/11/18 00:00 82 01/10/18 20:55 97/59 01/10/18 20:55 89 97/59 01/10/18 20:00 97.2 89 20 97/59 95 Room Air 97.2 01/10/18 18:08 112/68 01/10/18 16:00 85 01/10/18 16:00 97.3 80 18 112/68 95 Room Air 97.3 01/10/18 13:06 121/74 01/10/18 13:05 121/74 01/10/18 12:00 75 01/10/18 12:00 97.2 79 18 121/74 95 Room Air 97.2 Intake and Output 01/10/18 01/11/18 19:00 07:00 Output Total 900 ml Balance -900 ml Output Urine Total 900 ml # Voids 5 # Bowel Movements 2 1 Microbiology Date/Time Source Procedure Growth Status 01/09/18 12:55 Urine,Clean Catch Urine Culture - Preliminary Mixed Gram Positive Organism Resulted Objective HEAD AND NECK: Mild JVD. LUNGS: Decreased breath sounds. CARDIOVASCULAR: Regular S1 and S2 with no gallop or murmur. ABDOMEN: Soft. EXTREMITIES: 2+ pitting edema. Andre Howard MD January 11, 2018 09:46
[2018-01-11 10:32] LABS: BASOPHILS % (AUTO) 0.7 % (0.0-2.0); EOSINOPHILS % (AUTO) 1.7 % (0.0-3.0); HEMATOCRIT 44.2 % (42.0-52.0); LYMPHOCYTES % (AUTO) 10.6 % (20.0-45.0); MEAN CORPUSCULAR VOLUME 91 FL (80-99); MONOCYTES % (AUTO) 8.6 % (1.0-10.0); NEUTROPHILS % (AUTO) 78.5 % (45.0-75.0); PLATELET COUNT 136 K/UL (150-450); RED BLOOD COUNT 4.87 M/UL (4.70-6.10); RED CELL DISTRIBUTION WIDTH 15.6 % (11.6-14.8); WHITE BLOOD COUNT 12.9 K/UL (4.8-10.8)
--- NOTE | 2018-01-11 10:33 | Nephrology Progress Note ---
Assessment/Plan Problem List: (1) CKD (chronic kidney disease) (2) CHF (congestive heart failure) (3) Cardiomyopathy (4) Proteinuria Assessment no labs today WBCs elevated CKD- Cr lower chronic systolic heart failure Right heart failuer Edema due to above and possible venous insuf Non-ischemic cardiomyopathy no cad by cath 2016 History of DVT pulmonary HTN h/o Thrombocytopenia HTN Proteinuria previous echo: Severe global left ventricular hypokinesis with septal thinning. Left ventricular ejection fraction estimated to be 10-15 %. Plan Per ID mag and K supplement as needed Optimize cardiac status, monitor renal parameters Avoid nephrotoxics per orders Subjective ROS Limited/Unobtainable: No Constitutional: Reports: malaise Objective Objective Last 24 Hour Vital Signs Date Time Temp Pulse Resp B/P (MAP) Pulse Ox O2 Delivery O2 Flow Rate FiO2 01/11/18 09:04 99 122/69 01/11/18 08:00 97.2 99 20 122/69 96 Room Air 97.2 01/11/18 06:00 97/59 01/11/18 06:00 97/59 01/11/18 04:00 80 01/11/18 04:00 97.4 82 20 120/64 100 Room Air 97.4 01/11/18 00:22 97/59 01/11/18 00:00 97.6 82 20 132/78 95 Room Air 97.6 01/11/18 00:00 82 01/10/18 20:55 97/59 01/10/18 20:55 89 97/59 01/10/18 20:00 97.2 89 20 97/59 95 Room Air 97.2 01/10/18 18:08 112/68 01/10/18 16:00 85 01/10/18 16:00 97.3 80 18 112/68 95 Room Air 97.3 01/10/18 13:06 121/74 01/10/18 13:05 121/74 01/10/18 12:00 75 01/10/18 12:00 97.2 79 18 121/74 95 Room Air 97.2 Intake and Output 01/10/18 01/11/18 19:00 07:00 Output Total 900 ml Balance -900 ml Output Urine Total 900 ml # Voids 5 # Bowel Movements 2 1 Laboratory Tests 01/11/18 10:10: White Blood Count [Pending], Red Blood Count [Pending], Hemoglobin [Pending], Hematocrit [Pending], Mean Corpuscular Volume [Pending], Mean Corpuscular Hemoglobin [Pending], Mean Corpuscular Hemoglobin Concent [Pending], Red Cell Distribution Width [Pending], Platelet Count [Pending], Mean Platelet Volume [ Pending], Neutrophils (%) (Auto) [Pending], Lymphocytes (%) (Auto) [Pending], Monocytes (%) (Auto) [Pending], Eosinophils (%) (Auto) [Pending], Basophils (%) (Auto) [Pending], Sodium Level [Pending], Potassium Level [Pending], Chloride Level [Pending], Carbon Dioxide Level [Pending], Blood Urea Nitrogen [Pending], Creatinine [Pending], Estimat Glomerular Filtration Rate [Pending], Glucose Level [Pending], Calcium Level [Pending] Height (Feet): 5 Height (Inches): 10.00 Weight (Pounds): 161 General Appearance: no apparent distress Objective no other change BHARATHI LOVE January 11, 2018 10:33
[2018-01-11 10:43] LABS: ANION GAP 11 mmol/L (5-15); BLOOD UREA NITROGEN 41 mg/dL (7-18); CALCIUM 9.2 MG/DL (8.5-10.1); CARBON DIOXIDE 26 MMOL/L (21-32); CHLORIDE 102 MMOL/L (98-107); CREATININE 2.8 MG/DL (0.55-1.30); POTASSIUM 3.6 MMOL/L (3.5-5.1); SODIUM 139 MMOL/L (136-145)
[2018-01-11 12:00] VITALS: BP 119/64
--- NOTE | 2018-01-11 15:42 | Infectious Diseases Prog Note ---
Assessment/Plan Assessment/Plan ASSESSMENT AND PLAN: 1. leukocytosis, ? sepsis, valeria, ? uti, ua worse, ? fungemia, recent steroids - leukocytosis improved improving - zosyn and diflucan - day # 5 - f/u labs, f/u urine culture negative but patient on prior abx - ct without obvious abscess mentioned, ? hematoma, blood cultures negative - cleared for defibrillator from ID standpoint - d/w Diane Silva NP - d/w Dr. Howard 2. The patient has elevated creatinine with acute kidney injury, chronic renal failure, and anemia. 3. Acute cerebrovascular accident per history and exam + MRI noted - treatment per primary team and neurology, tpa given 4. Chronic obstructive pulmonary disease and asthma exacerbation. 5. Shortness of breath. 6. Steroids. 7. Congestive heart failure. 8. Leg edema. 9. Hypertension. 10. Blood pressure treatment per primary consultants. 11. No known allergies. 12. Social history negative. 13. Family history noncontributory. 14. MAR was noted. 15. Case discussed with RN. 16. Case discussed and communicated with Diane Silva NP for Dr. Holliday. 17. Continue treatment per primary consultants. 18. Notes and records were noted. 19. Orders were entered and communicated. 20. Case was discussed the patient's family. 21. We will follow with you. Subjective Constitutional: Denies: fever HEENT: Denies: congestion Respiratory: Denies: shortness of breath Cardiovascular: Denies: chest pain Gastrointestinal/Abdominal: Denies: nausea, vomiting, diarrhea Genitourinary: Reports: other - + reagan Neurologic: Denies: headache Psychiatric: Denies: depression Skin: Denies: rash Hematologic: Denies: bleeding Musculoskeletal: Denies: pain Allergies: Coded Allergies: No Known Allergies (Unverified , 01/09/14) Objective Vital Signs Last 24 Hour Vital Signs Date Time Temp Pulse Resp B/P (MAP) Pulse Ox O2 Delivery O2 Flow Rate FiO2 01/11/18 13:12 122/74 01/11/18 13:12 122/74 01/11/18 12:00 97.9 82 20 119/64 94 Room Air 97.9 01/11/18 12:00 79 01/11/18 09:04 99 122/69 01/11/18 08:00 83 01/11/18 08:00 97.2 99 20 122/69 96 Room Air 97.2 01/11/18 06:00 97/59 01/11/18 06:00 97/59 01/11/18 04:00 80 01/11/18 04:00 97.4 82 20 120/64 100 Room Air 97.4 01/11/18 00:22 97/59 01/11/18 00:00 97.6 82 20 132/78 95 Room Air 97.6 01/11/18 00:00 82 01/10/18 20:55 97/59 01/10/18 20:55 89 97/59 01/10/18 20:00 97.2 89 20 97/59 95 Room Air 97.2 01/10/18 18:08 112/68 01/10/18 16:00 85 01/10/18 16:00 97.3 80 18 112/68 95 Room Air 97.3 Height (Feet): 5 Height (Inches): 10.00 Weight (Pounds): 161 General Appearance: no acute distress HEENT: normocephalic, atraumatic, anicteric, mucous membranes moist Respiratory/Chest: lungs clear, normal breath sounds, no respiratory distress, no accessory muscle use Cardiovascular: normal rate, regular rhythm, no gallop/murmur, no JVD Abdomen: normal bowel sounds, soft, non tender, no organomegaly, non distended Genitourinary: other - + reagan - urine clear Extremities: no cyanosis Skin: no rash Neurologic/Psychiatric: reheater helper II-XII grossly normal, alert, responsive Lymphatic: no neck adenopathy Musculoskeletal: no effusion Objective MRI Brain: IMPRESSION: 1. Acute small area of right parietal infarct. No hemorrhage. No mass effect or midline shift. 2. Involutional changes with small vessel disease. Chest -x-ray - 01/01 and 01/04 - no consolidation Chest x-ray - 01/06 - copd, no consolidation identified, report noted CT - abdomen/pelvis - IMPRESSION: 1. The right psoas muscle is prominent when compared to the left. There is some mild infiltration of the fat adjacent to the right psoas muscle. Some mild increased density is suspected within the right psoas muscle. This is suspicious for a hematoma. The suspected hematoma cannot be from the adjacent musculature. The right psoas muscle and suspected hematoma together measure approximately 4.8 cm in maximum transverse dimensions. Evaluation for active bleeding cannot be performed without IV contrast. An infectious process or neoplastic process cannot be excluded radiographically. 2. Cardiomegaly. 3. Diverticulosis without evidence for diverticulitis. 01/06 - Chest x-ray - copd (report noted) Microbiology Date/Time Source Procedure Growth Status 01/06/18 13:58 Blood Blood Culture - Preliminary NO GROWTH AFTER 4 DAYS Resulted 01/06/18 12:14 Stool Clostridium difficile Toxin Assay - Final Complete 01/09/18 12:55 Urine,Clean Catch Urine Culture - Preliminary Mixed Gram Positive Organism Resulted Microbiology Date/Time Source Procedure Growth Status 01/09/18 12:55 Urine,Clean Catch Urine Culture - Preliminary Mixed Gram Positive Organism Resulted Laboratory Tests Test 01/11/18 10:10 White Blood Count 12.9 K/UL (4.8-10.8) H Red Blood Count 4.87 M/UL (4.70-6.10) Hemoglobin 14.0 G/DL (14.2-18.0) L Hematocrit 44.2 % (42.0-52.0) Mean Corpuscular Volume 91 FL (80-99) Mean Corpuscular Hemoglobin 28.7 PG (27.0-31.0) Mean Corpuscular Hemoglobin Concent 31.6 G/DL (32.0-36.0) L Red Cell Distribution Width 15.6 % (11.6-14.8) H Platelet Count 136 K/UL (150-450) L Mean Platelet Volume 9.4 FL (6.5-10.1) Neutrophils (%) (Auto) 78.5 % (45.0-75.0) H Lymphocytes (%) (Auto) 10.6 % (20.0-45.0) L Monocytes (%) (Auto) 8.6 % (1.0-10.0) Eosinophils (%) (Auto) 1.7 % (0.0-3.0) Basophils (%) (Auto) 0.7 % (0.0-2.0) Sodium Level 139 MMOL/L (136-145) Potassium Level 3.6 MMOL/L (3.5-5.1) Chloride Level 102 MMOL/L (98-107) Carbon Dioxide Level 26 MMOL/L (21-32) Anion Gap 11 mmol/L (5-15) Blood Urea Nitrogen 41 mg/dL (7-18) H Creatinine 2.8 MG/DL (0.55-1.30) H Estimat Glomerular Filtration Rate mL/min (>60) Glucose Level 113 MG/DL (74-106) H Calcium Level 9.2 MG/DL (8.5-10.1) Current Medications Medications (Trade) Dose Ordered Sig/Denny Route PRN Reason Start Time Stop Time Status Last Admin Dose Admin Acetaminophen (Tylenol) 650 mg Q4H PRN ORAL Mild Pain (Pain Scale 1-3) 01/08/18 20:00 01/31/18 11:59 Acetaminophen (Tylenol) 650 mg Q4H PRN ORAL T>100.5 01/08/18 20:00 01/31/18 11:59 Allopurinol (Allopurinol) 300 mg DAILY ORAL 01/09/18 09:00 02/03/18 08:59 01/11/18 09:04 Atorvastatin Calcium (Lipitor) 80 mg BEDTIME ORAL 01/08/18 21:00 02/03/18 20:59 01/10/18 20:52 Carvedilol (Coreg) 3.125 mg EVERY 12 HOURS ORAL 01/08/18 21:00 01/31/18 20:59 01/11/18 09:04 Chlorhexidine Gluconate (Caitlin-Hex 2%) 1 applic DAILY@2000 TOPIC 01/08/18 20:00 02/01/18 19:59 01/10/18 20:52 Dextrose (Dextrose 50%) 25 ml STAT PRN IV Hypoglycemia 01/08/18 17:56 02/07/18 17:55 Dextrose (Dextrose 50%) 50 ml STAT PRN IV Hypoglycemia 01/08/18 17:56 02/07/18 17:55 Fluconazole/ Sodium Chloride 100 ml @ 100 mls/hr Q24H IV 01/09/18 09:00 01/14/18 23:59 01/11/18 09:03 Furosemide (Lasix) 40 mg DAILY IV 01/11/18 09:00 02/03/18 20:59 01/11/18 09:04 Heparin Sodium (Porcine) (Heparin 5000 units/ml) 5,000 units EVERY 12 HOURS SUBQ 01/08/18 21:00 02/03/18 20:59 01/11/18 09:05 Hydralazine HCl (Apresoline) 50 mg Q8HR ORAL 01/08/18 22:00 01/31/18 13:59 01/11/18 13:12 Insulin Aspart (NovoLOG) BEFORE MEALS AND HS SUBQ 01/08/18 21:00 02/03/18 16:29 01/10/18 20:54 Isosorbide Dinitrate (Isordil) 10 mg Q6HR ORAL 01/08/18 18:00 01/31/18 17:59 01/11/18 13:12 Olanzapine (ZyPREXA) 2.5 mg HSPRN PRN ORAL Agitation 01/08/18 17:57 02/07/18 17:56 Ondansetron HCl (Zofran) 4 mg Q6H PRN IVP Nausea & Vomiting 01/08/18 17:58 01/31/18 17:57 Pantoprazole (Protonix) 40 mg EVERY 12 HOURS ORAL 01/08/18 21:00 01/31/18 20:59 01/11/18 09:04 Piperacillin Sod/ Tazobactam Sod 3.375 gm/Sodium Chloride 110 ml @ 27.5 mls/hr Q8HR@0200,1000,1800 IVPB 01/09/18 18:00 01/16/18 17:59 01/11/18 10:34 Tamsulosin HCl (Flomax) 0.4 mg Q12HR ORAL 01/08/18 21:00 02/07/18 20:59 01/11/18 09:04 Ted Gonzalez MD January 11, 2018 15:42
--- NOTE | 2018-01-11 15:52 | General Progress Note ---
Assessment/Plan Assessment/Plan -ativan prn -zyprexa prn encephalopathy resolved Subjective Date patient seen: January 11, 2018 Neurologic/Psychiatric: Reports: anxiety, emotional problems Allergies: Coded Allergies: No Known Allergies (Unverified , 01/09/14) Subjective the pt is doing well Objective Last 24 Hour Vital Signs Date Time Temp Pulse Resp B/P (MAP) Pulse Ox O2 Delivery O2 Flow Rate FiO2 01/11/18 13:12 122/74 01/11/18 13:12 122/74 01/11/18 12:00 97.9 82 20 119/64 94 Room Air 97.9 01/11/18 12:00 79 01/11/18 09:04 99 122/69 01/11/18 08:00 83 01/11/18 08:00 97.2 99 20 122/69 96 Room Air 97.2 01/11/18 06:00 97/59 01/11/18 06:00 97/59 01/11/18 04:00 80 01/11/18 04:00 97.4 82 20 120/64 100 Room Air 97.4 01/11/18 00:22 97/59 01/11/18 00:00 97.6 82 20 132/78 95 Room Air 97.6 01/11/18 00:00 82 01/10/18 20:55 97/59 01/10/18 20:55 89 97/59 01/10/18 20:00 97.2 89 20 97/59 95 Room Air 97.2 01/10/18 18:08 112/68 01/10/18 16:00 85 01/10/18 16:00 97.3 80 18 112/68 95 Room Air 97.3 Intake and Output 01/10/18 01/11/18 19:00 07:00 Output Total 900 ml Balance -900 ml Output Urine Total 900 ml # Voids 5 # Bowel Movements 2 1 Laboratory Tests 01/11/18 10:10: White Blood Count 12.9H, Red Blood Count 4.87, Hemoglobin 14.0L, Hematocrit 44.2 , Mean Corpuscular Volume 91, Mean Corpuscular Hemoglobin 28.7, Mean Corpuscular Hemoglobin Concent 31.6L, Red Cell Distribution Width 15.6H, Platelet Count 136L, Mean Platelet Volume 9.4, Neutrophils (%) (Auto) 78.5H, Lymphocytes (%) (Auto) 10.6L, Monocytes (%) (Auto) 8.6, Eosinophils (%) (Auto) 1.7, Basophils (%) (Auto) 0.7, Sodium Level 139, Potassium Level 3.6, Chloride Level 102, Carbon Dioxide Level 26, Anion Gap 11, Blood Urea Nitrogen 41H, Creatinine 2.8H, Estimat Glomerular Filtration Rate , Glucose Level 113H, Calcium Level 9.2 Height (Feet): 5 Height (Inches): 10.00 Weight (Pounds): 161 General Appearance: no apparent distress, alert Neurologic: oriented x 3, responsive Ralph Alva M.D. January 11, 2018 15:52
[2018-01-11 16:00] VITALS: BP 102/58
--- NOTE | 2018-01-11 18:41 | Neurology Progress Note ---
Interim History Interim History Interim History Mr. Winslow feels better. His left side feels stronger. He is able to see well on his left side. He has more control over his left sided movements. He is more are of his left sided deficits. He is still neglecting the left side minimally. He has noted no new neurologic symptoms. Plans are for his cardiac procedure tomorrow. Review of Systems Neuro Review of Systems Benign. Objective Physical Exam Last Vital Signs Date Time Temp Pulse Resp B/P (MAP) Pulse Ox O2 Delivery O2 Flow Rate FiO2 01/11/18 16:00 84 01/11/18 16:00 97.2 20 102/58 95 Room Air 97.2 01/06/18 08:16 21 Laboratory Tests Test 01/11/18 10:10 White Blood Count 12.9 K/UL (4.8-10.8) H Red Blood Count 4.87 M/UL (4.70-6.10) Hemoglobin 14.0 G/DL (14.2-18.0) L Hematocrit 44.2 % (42.0-52.0) Mean Corpuscular Volume 91 FL (80-99) Mean Corpuscular Hemoglobin 28.7 PG (27.0-31.0) Mean Corpuscular Hemoglobin Concent 31.6 G/DL (32.0-36.0) L Red Cell Distribution Width 15.6 % (11.6-14.8) H Platelet Count 136 K/UL (150-450) L Mean Platelet Volume 9.4 FL (6.5-10.1) Neutrophils (%) (Auto) 78.5 % (45.0-75.0) H Lymphocytes (%) (Auto) 10.6 % (20.0-45.0) L Monocytes (%) (Auto) 8.6 % (1.0-10.0) Eosinophils (%) (Auto) 1.7 % (0.0-3.0) Basophils (%) (Auto) 0.7 % (0.0-2.0) Sodium Level 139 MMOL/L (136-145) Potassium Level 3.6 MMOL/L (3.5-5.1) Chloride Level 102 MMOL/L (98-107) Carbon Dioxide Level 26 MMOL/L (21-32) Anion Gap 11 mmol/L (5-15) Blood Urea Nitrogen 41 mg/dL (7-18) H Creatinine 2.8 MG/DL (0.55-1.30) H Estimat Glomerular Filtration Rate mL/min (>60) Glucose Level 113 MG/DL (74-106) H Calcium Level 9.2 MG/DL (8.5-10.1) Neurologic Exam Objective PHYSICAL EXAMINATION: GENERAL: He is a well-developed relatively well-nourished black gentleman, lying in bed, in no acute distress. HEAD: Normocephalic and atraumatic. NECK: No neck rigidity was observed. EENT: Examination benign. NEUROLOGICAL EXAMINATION: MENTAL STATUS EXAMINATION: He was awake and alert. He was oriented to person, place, and time except for the exact date. He was able to recall 3/3 words immediately after 1 minute and after 3 minutes on the second trial. He was able to remember presidents, Trump through [employer] with hints. His mathematical skills were fairly good. His visuospatial function was preserved. SPEECH: He had a mild dysarthria. LANGUAGE: He had no aphasia. CRANIAL NERVES EXAMINATION: II: The visual field were full on confrontation testing. III, IV & : External ocular movements were full and the pupils 3 mm in diameter, equal, round, regular, and reactive to light. V: He had normal facial sensations and the temporales, masseters, and pterygoids functioned normally. VII: He had left seventh central facial paresis. VIII: He was able to hear well bilaterally and had no nystagmus. IX: The palate moved symmetrically on phonation. X: He had no hoarseness of voice. XI: The sternocleidomastoids and trapezii functioned normally. XII: The tongue was in the midline without any fasciculations or atrophy. MOTOR SYSTEM: The tone was normal on the right side and diminished on the left side. Examination of muscle mass revealed no focal wasting. Examination of power revealed G 5/5 power in the right upper extremity. In the right lower extremity he also had G 5/5 power except for G 5-/5 power in the iliopsoas. On the left side, he had G 3/5 in the deltoid, G 1/5 in the biceps, G 1/5 in the triceps, G 0/5 in the wrist and fingers, G 3/5 in the hip rotators, G 4/5 in the quadriceps, hamstrings, ankle plantar flexors and toe flexors, and G 3/5 in the ankle dorsiflexors and toe extensors. SENSORY EXAMINATION: He tended to neglect his left side minimally. He made errors on testing for pinprick and light touch over his entire left body. In addition, he had normal graphesthesia on the right side and agraphesthesia on the left side. REFLEXES: 1++ on the right and 0 on the left at the biceps, triceps, and brachioradialis, 1++ on the right and 2++ on the left at the knees. 0 at both ankles. The plantar response was flexor on the right and extensor on the left. COORDINATION: He performed well on rwddei-nc-obot testing on the right side. He was unable to perform on the left side. He was unable to perform heel-to- puri testing bilaterally. STANCE & GAIT: Could not be tested. Impression/Recommendations Diagnostic Impression 1. Mr Agnes Winslow is a 77-year-old, right-handed, black gentleman, who does have a past history of hypertension, chronic kidney disease, cardiomyopathy, severe congestive heart failure with an ejection fraction at 15% in the near past and asthma. On 01/01/2018, he suddenly developed left-sided weakness. He was brought into the [facility] emergency room, diagnosed with a left brain stroke, and given tPA. Following that he became significantly weaker on his left side, has developed left-sided neglect, and some visual problems on that side. 2. He feels better. His left side feels stronger. He is able to see well on his left side. He has more control over his left sided movements. He is more are of his left sided deficits. He is still neglecting the left side minimally. He has noted no new neurologic symptoms. Plans are for his cardiac procedure tomorrow. 3. On neurological examination at this time, he is well oriented - except for the exact date, has mild problems with memory, has a mild dysarthria, the left visual field cut on confrontation testing has resolved, he has a left seventh central facial paresis, left hemiparesis which is definitely better, right proximal lower extremity weakness, a left hemisensory deficit and agraphesthesia , loss of deep tendon reflexes in the upper extremities with a brisk left knee jerk and extensor plantar response on the left side. 4. The CT scan of the brain without contrast performed on 01/01/2018 was read as being normal. 5. An MRI scan of the brain performed on 01/01/2018 revealed "an acute small area of right parietal infarct, but no other pathology". 6. The repeat CT of the brain done on 01/03/18 revealed an acute infarct in the right frontal and temporal lobes. No associated acute hemorrhage. 7. The carotid duplex scan was reported as being within normal limits. 8. 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 His neurologic function is improving. Recommendations 1. Continue present management. 2. Physical, occupational and speech and language therapy. 3. AICD placement on 01/12/18 as planned. 4. Consider acute rehabilitation. 5. ASA 81 mg q day. 6. Continue Lipitor with LDL goal of <70. Arun Ramirez M.D., M.S.P.H. ARUN RAMIREZ January 11, 2018 18:41
--- NOTE | 2018-01-11 19:49 | General Progress Note ---
Assessment/Plan Problem List: (1) CKD (chronic kidney disease) ICD Codes: N18.9 - CKD (chronic kidney disease) SNOMED: 050014645 Qualifiers: Qualified Codes: N18.9 - Chronic kidney disease, unspecified (2) HTN (hypertension) ICD Codes: I10 - HTN (hypertension) SNOMED: 28263642 (3) CHF (congestive heart failure) ICD Codes: I50.9 - CHF (congestive heart failure) SNOMED: 28694706 (4) Respiratory distress ICD Codes: R06.00 - Dyspnea, unspecified SNOMED: 859609092 (5) Dyspnea ICD Codes: R06.00 - Dyspnea, unspecified SNOMED: 793075838 (6) Asthma exacerbation ICD Codes: J45.901 - Unspecified asthma with (acute) exacerbation SNOMED: 556338279 (7) FIONA (acute kidney injury) ICD Codes: N17.9 - Acute kidney failure, unspecified SNOMED: 23012273 (8) CHF exacerbation ICD Codes: I50.9 - Heart failure, unspecified SNOMED: 92739854 Qualifiers: Qualified Codes: I50.9 - Heart failure, unspecified (9) CVA (cerebral vascular accident) ICD Codes: I63.9 - Cerebral infarction, unspecified SNOMED: 180225868 Qualifiers: Qualified Codes: I63.9 - Cerebral infarction, unspecified (10) Peripheral edema ICD Codes: R60.9 - Edema, unspecified SNOMED: 278512633 (11) Cardiomyopathy ICD Codes: I42.9 - Cardiomyopathy SNOMED: 57493279 (12) Malnutrition ICD Codes: E46 - Malnutrition SNOMED: 7979705 (13) Hypokalemia ICD Codes: E87.6 - Hypokalemia SNOMED: 74238775 (14) Prediabetes ICD Codes: R73.03 - Prediabetes SNOMED: 816952853 (15) HLD (hyperlipidemia) ICD Codes: E78.5 - Hyperlipidemia, unspecified SNOMED: 56219740 (16) Leukocytosis ICD Codes: D72.829 - Elevated white blood cell count, unspecified SNOMED: 071327719, 423658355 Assessment/Plan #acute right parietal infarct - Neurology consulted, appreciate rec's - No need for transfer to stroke center at this time per neurology - NIH stroke scale last night was 2 prior to TPA. Repeat NIH stroke scale is 5 - s/p tPA given at 0300 on 01/01 - CT head on 01/01 at 0100 was negative. - MRI brain showing acute small right parietal infarct with no hemorrhage, midline shift, or mass effect - continue permissive hypertension to systolic 160-180s x 24 hours - MRA brain and neck without contrast showing attenuated appearance of the distal right middle cerebral artery likely due to technical issues. Also with short segment stenotic appearance of the right proximal ICA, cannot exclude high -grade stenosis. - carotid U/S negative - repeat CT with no bleed, showing acute infarct. also with some corresponding edema without significant mass effect --> start HSQ - ECHO with doppler showing 25-30% EF, pulmonary hypertension, and left ventricular hypokinesis - bilateral venous duplex negative - check lipid panel and A1c - ST/PT/OT eval - Passed swallow eval, on pureed. video swallow study done, f/u results - neurochecks q4hr - LDL 83. Start lipitor 80mg qhs - will start ASA 81mg after defibb placement #Acute asthma exacerbation - prednisone 40mg PO qd x 5 days (D5/5). discontinued as patient's wheezing resolved - duonebs ATC q6hr - ABGs #Sepsis, unknown etiology - ID consulted, appreciate rec's - continue IV zosyn and diflucan per ID - CXR negative. Repeat CXR negative - trend CBC - WBC downtrending to [address] a/p showing questionable hematoma. C. diff negative. f/u urine cx. CXR negative. Blood cx NGTD. #Acute on chronic systolic CHF / severe cardiomyopathy - cardiology consulted, appreciate rec's - strict I&O - 1.5 L fluid restriction - lasix 80mg IV BID --> lasix 60 IV BID --> lasix 40mg IV BID - permissive HTN with systolic 160-180s given acute CVA till 01/02 - dobutamine gtt titrated down to 1 mcg/min - s/p PICC line 01/03 - EF 25-30% - cardiology recommending defibrillator placement. Cleared per ID for procedure. Patient is scheduled for procedure tomorrow. Discussed risks/ benefits with family. Family agreeable. Cleared per neurology. #FIONA due to cardiorenal syndrome - nephrology consulted, appreciate rec's - trend Cr - check urine lytes - avoid IVF given CHF exacerbation #Hypokalemia - replete electrolytes prn. monitor BMP and Mg #HLD - start lipitor 80mg #Prediabetes - A1c 6.2 - will start MURIEL for now - if Cr stabilizes, will discharge patient on metformin/glipizide DVT ppx: HSQ Discussed case in detail with nursing staff, case management, cardiology, nephrology, neurology, ID, patient, and family. Case d/w Dr. Holliday who agrees to the plan above. Disposition: ARU vs. SNF vs. home with home health I spent a total of 40 minutes on this patient's case with greater than 50% spent on care and coordination of the patient. Subjective Date patient seen: January 11, 2018 Time patient seen: 10:00 Allergies: Coded Allergies: No Known Allergies (Unverified , 01/09/14) Subjective - WBC down to 12 today - on zosyn and diflucan - cleared per ID for defibb placement tomorrow - AF, HDS - no sob, cp Objective Last 24 Hour Vital Signs Date Time Temp Pulse Resp B/P (MAP) Pulse Ox O2 Delivery O2 Flow Rate FiO2 01/11/18 16:00 84 01/11/18 16:00 97.2 82 20 102/58 95 Room Air 97.2 01/11/18 13:12 122/74 01/11/18 13:12 122/74 01/11/18 12:00 97.9 82 20 119/64 94 Room Air 97.9 01/11/18 12:00 79 01/11/18 09:04 99 122/69 01/11/18 08:00 83 01/11/18 08:00 97.2 99 20 122/69 96 Room Air 97.2 01/11/18 06:00 97/59 01/11/18 06:00 97/59 01/11/18 04:00 80 01/11/18 04:00 97.4 82 20 120/64 100 Room Air 97.4 01/11/18 00:22 97/59 01/11/18 00:00 97.6 82 20 132/78 95 Room Air 97.6 01/11/18 00:00 82 01/10/18 20:55 97/59 01/10/18 20:55 89 97/59 01/10/18 20:00 97.2 89 20 97/59 95 Room Air 97.2 Intake and Output 01/10/18 01/11/18 19:00 07:00 Output Total 900 ml Balance -900 ml Output Urine Total 900 ml # Voids 5 # Bowel Movements 2 1 Laboratory Tests 01/11/18 10:10: White Blood Count 12.9H, Red Blood Count 4.87, Hemoglobin 14.0L, Hematocrit 44.2 , Mean Corpuscular Volume 91, Mean Corpuscular Hemoglobin 28.7, Mean Corpuscular Hemoglobin Concent 31.6L, Red Cell Distribution Width 15.6H, Platelet Count 136L, Mean Platelet Volume 9.4, Neutrophils (%) (Auto) 78.5H, Lymphocytes (%) (Auto) 10.6L, Monocytes (%) (Auto) 8.6, Eosinophils (%) (Auto) 1.7, Basophils (%) (Auto) 0.7, Sodium Level 139, Potassium Level 3.6, Chloride Level 102, Carbon Dioxide Level 26, Anion Gap 11, Blood Urea Nitrogen 41H, Creatinine 2.8H, Estimat Glomerular Filtration Rate , Glucose Level 113H, Calcium Level 9.2 Height (Feet): 5 Height (Inches): 10.00 Weight (Pounds): 161 General Appearance: no apparent distress, alert EENT: PERRL/EOMI, normal ENT inspection Neck: non-tender, normal alignment, supple Cardiovascular: normal peripheral pulses, normal rate, regular rhythm Respiratory/Chest: chest wall non-tender, lungs clear, normal breath sounds Abdomen: normal bowel sounds, non tender, soft Extremities: non-tender Edema: mild edema Neurologic: electrolytic de scaler II-XII grossly normal, alert, oriented x 3, pronator drift, other - left-sided hemiplegia Diane Silva NP January 11, 2018 19:49
[2018-01-11 20:00] VITALS: BP 124/75
[2018-01-11] MEDS: Dyna-Hex 2% Top Sol 2oz TOPIC SCH (20:41)
[2018-01-11] MEDS: Atorvastatin 80mg tab ORAL SCH (20:43)
[2018-01-12] VITALS (12 sets, daily range): BP systolic 99–143; BP diastolic 69–80
[2018-01-12] MEDS: Zosyn 3.375gm q8h **Extended infusion IVPB SCH ×6 (01:15→17:32)
[2018-01-12] MEDS: HydrALAZINE 50mg tab ORAL SCH ×3 (05:38→21:56)
[2018-01-12] MEDS: NovoLOG Insulin Flexpen SUBQ SCH ×4 (06:19→20:37)
--- NOTE | 2018-01-12 07:51 | General Progress Note ---
Assessment/Plan Status: stable Assessment/Plan #. Thrombocytopenia, potentially secondary to underlying medications versus infection. Has been seen by Cardiology Service, meds have been reviewed. Currently in the 100-150k range --> hepatitis and hiv are negative, US of the abdomen is pending, to r/o hsm and cirrhosis is negative ---> transfuse if plt count ever <20k --> no transfusion needed #. Leukocytosis. Likely related to underlying ID issue. ? sepsis, ? reactive to cva, valeria, aspiration risk, abdomen benign, ? uti, ua with 1 + le and moderate bacteria but urine culture mixed --> Continue antibiotics as per primary team and Infectious Disease prn --> abx as per ID, antibiotics on board #. Anemia due to underlying chronic disease. Continue to closely monitor. significantly improved --> at this time, hold off on extensive workup unless hgb less than 10 #. Acute cerebrovascular accident, noted on MRI. Further management per neurology #. Shortness of breath seen by pulm --> appreciate their recs #. Sepsis ID service is following #. Hypertension. Elevated blood pressure. --> currently controlled --> further management per cards Subjective Date patient seen: January 12, 2018 Allergies: Coded Allergies: No Known Allergies (Unverified , 01/09/14) All Systems: reviewed and negative except above Subjective Patient NPO from midnight d/t defibrillation implantation,consent signed by patient Objective Last 24 Hour Vital Signs Date Time Temp Pulse Resp B/P (MAP) Pulse Ox O2 Delivery O2 Flow Rate FiO2 01/12/18 05:39 116/70 01/12/18 05:38 116/70 01/12/18 04:00 98.2 93 19 116/70 96 Room Air 98.2 01/12/18 03:47 89 01/12/18 00:32 121/64 01/12/18 00:00 98.3 83 19 120/69 96 Room Air 98.3 01/11/18 23:51 83 01/11/18 22:00 124/75 01/11/18 20:43 84 124/75 01/11/18 20:00 98.1 84 20 124/75 96 Room Air 98.1 01/11/18 19:00 92 01/11/18 16:00 84 01/11/18 16:00 97.2 82 20 102/58 95 Room Air 97.2 01/11/18 13:12 122/74 01/11/18 13:12 122/74 01/11/18 12:00 97.9 82 20 119/64 94 Room Air 97.9 01/11/18 12:00 79 01/11/18 09:04 99 122/69 01/11/18 08:00 83 01/11/18 08:00 97.2 99 20 122/69 96 Room Air 97.2 Intake and Output 01/11/18 01/12/18 19:00 07:00 Intake Total 360 ml Output Total 800 ml 205 ml Balance -440 ml -205 ml Intake Oral 360 ml Output Urine Total 800 ml 205 ml # Bowel Movements 1 2 Laboratory Tests 01/11/18 10:10: White Blood Count 12.9H, Red Blood Count 4.87, Hemoglobin 14.0L, Hematocrit 44.2 , Mean Corpuscular Volume 91, Mean Corpuscular Hemoglobin 28.7, Mean Corpuscular Hemoglobin Concent 31.6L, Red Cell Distribution Width 15.6H, Platelet Count 136L, Mean Platelet Volume 9.4, Neutrophils (%) (Auto) 78.5H, Lymphocytes (%) (Auto) 10.6L, Monocytes (%) (Auto) 8.6, Eosinophils (%) (Auto) 1.7, Basophils (%) (Auto) 0.7, Sodium Level 139, Potassium Level 3.6, Chloride Level 102, Carbon Dioxide Level 26, Anion Gap 11, Blood Urea Nitrogen 41H, Creatinine 2.8H, Estimat Glomerular Filtration Rate , Glucose Level 113H, Calcium Level 9.2 Height (Feet): 5 Height (Inches): 10.00 Weight (Pounds): 157 General Appearance: no apparent distress EENT: normal ENT inspection Neck: normal alignment, supple Cardiovascular: normal rate, regular rhythm Respiratory/Chest: lungs clear, normal breath sounds Abdomen: non tender Mahendra Marinelli MD January 12, 2018 07:51
[2018-01-12 08:00] LABS: BASOPHILS % (AUTO) 0.5 % (0.0-2.0); EOSINOPHILS % (AUTO) 1.5 % (0.0-3.0); HEMATOCRIT 44.1 % (42.0-52.0); HEMOGLOBIN 14.2 G/DL (14.2-18.0); LYMPHOCYTES % (AUTO) 10.6 % (20.0-45.0); MEAN CORPUSCULAR VOLUME 91 FL (80-99); MONOCYTES % (AUTO) 10.1 % (1.0-10.0); NEUTROPHILS % (AUTO) 77.4 % (45.0-75.0); PLATELET COUNT 156 K/UL (150-450); RED BLOOD COUNT 4.85 M/UL (4.70-6.10); RED CELL DISTRIBUTION WIDTH 15.6 % (11.6-14.8); WHITE BLOOD COUNT 13.9 K/UL (4.8-10.8)
[2018-01-12 08:29] LABS: ANION GAP 12 mmol/L (5-15); BLOOD UREA NITROGEN 32 mg/dL (7-18); CALCIUM 9.2 MG/DL (8.5-10.1); CARBON DIOXIDE 26 MMOL/L (21-32); CHLORIDE 103 MMOL/L (98-107); CREATININE 2.6 MG/DL (0.55-1.30); POTASSIUM 3.6 MMOL/L (3.5-5.1); SODIUM 140 MMOL/L (136-145)
[2018-01-12] MEDS: Heparin 5000 units/ml inj SUBQ SCH ×2 (09:00→20:38)
[2018-01-12] MEDS: Tamsulosin 0.4mg cap ORAL SCH ×2 (09:38→20:35)
--- NOTE | 2018-01-12 10:09 | Nephrology Progress Note ---
Assessment/Plan Problem List: (1) CKD (chronic kidney disease) (2) CHF (congestive heart failure) (3) Cardiomyopathy (4) Proteinuria Assessment Cr 2.6 WBCs elevated CKD- Cr lower chronic systolic heart failure Right heart failuer Edema due to above and possible venous insuf Non-ischemic cardiomyopathy no cad by cath 2016 History of DVT pulmonary HTN h/o Thrombocytopenia HTN Proteinuria previous echo: Severe global left ventricular hypokinesis with septal thinning. Left ventricular ejection fraction estimated to be 10-15 %. Plan Per ID mag and K supplement as needed Optimize cardiac status, monitor renal parameters Avoid nephrotoxics per orders Subjective ROS Limited/Unobtainable: No Constitutional: Reports: malaise Objective Objective Last 24 Hour Vital Signs Date Time Temp Pulse Resp B/P (MAP) Pulse Ox O2 Delivery O2 Flow Rate FiO2 01/12/18 09:38 85 129/76 01/12/18 08:00 97.5 87 18 143/76 96 Room Air 97.5 01/12/18 05:39 116/70 01/12/18 05:38 116/70 01/12/18 04:00 98.2 93 19 116/70 96 Room Air 98.2 01/12/18 03:47 89 01/12/18 00:32 121/64 01/12/18 00:00 98.3 83 19 120/69 96 Room Air 98.3 01/11/18 23:51 83 01/11/18 22:00 124/75 01/11/18 20:43 84 124/75 01/11/18 20:00 98.1 84 20 124/75 96 Room Air 98.1 01/11/18 19:00 92 01/11/18 16:00 84 01/11/18 16:00 97.2 82 20 102/58 95 Room Air 97.2 01/11/18 13:12 122/74 01/11/18 13:12 122/74 01/11/18 12:00 97.9 82 20 119/64 94 Room Air 97.9 01/11/18 12:00 79 Intake and Output 01/11/18 01/12/18 19:00 07:00 Intake Total 360 ml Output Total 800 ml 205 ml Balance -440 ml -205 ml Intake Oral 360 ml Output Urine Total 800 ml 205 ml # Bowel Movements 1 2 Laboratory Tests 01/11/18 10:10: White Blood Count 12.9H, Red Blood Count 4.87, Hemoglobin 14.0L, Hematocrit 44.2 , Mean Corpuscular Volume 91, Mean Corpuscular Hemoglobin 28.7, Mean Corpuscular Hemoglobin Concent 31.6L, Red Cell Distribution Width 15.6H, Platelet Count 136L, Mean Platelet Volume 9.4, Neutrophils (%) (Auto) 78.5H, Lymphocytes (%) (Auto) 10.6L, Monocytes (%) (Auto) 8.6, Eosinophils (%) (Auto) 1.7, Basophils (%) (Auto) 0.7, Sodium Level 139, Potassium Level 3.6, Chloride Level 102, Carbon Dioxide Level 26, Anion Gap 11, Blood Urea Nitrogen 41H, Creatinine 2.8H, Estimat Glomerular Filtration Rate , Glucose Level 113H, Calcium Level 9.2 01/12/18 06:48: White Blood Count 13.9H, Red Blood Count 4.85, Hemoglobin 14.2, Hematocrit 44.1 , Mean Corpuscular Volume 91, Mean Corpuscular Hemoglobin 29.2, Mean Corpuscular Hemoglobin Concent 32.1, Red Cell Distribution Width 15.6H, Platelet Count 156, Mean Platelet Volume 10.5H, Neutrophils (%) (Auto) 77.4H, Lymphocytes (%) (Auto) 10.6L, Monocytes (%) (Auto) 10.1H, Eosinophils (%) (Auto ) 1.5, Basophils (%) (Auto) 0.5, Sodium Level 140, Potassium Level 3.6, Chloride Level 103, Carbon Dioxide Level 26, Anion Gap 12, Blood Urea Nitrogen 32H, Creatinine 2.6H, Estimat Glomerular Filtration Rate , Glucose Level 95, Calcium Level 9.2 Height (Feet): 5 Height (Inches): 10.00 Weight (Pounds): 157 General Appearance: no apparent distress Cardiovascular: tachycardia Respiratory/Chest: decreased breath sounds Abdomen: soft Objective no other change BHARATHI LOVE January 12, 2018 10:09
--- NOTE | 2018-01-12 12:36 | Infectious Diseases Prog Note ---
Assessment/Plan Assessment/Plan ASSESSMENT AND PLAN: 1. leukocytosis, ? sepsis, valeria, ? uti, ua worse, ? fungemia, recent steroids - leukocytosis improved - zosyn and diflucan - day # 6 - f/u labs, f/u urine culture negative but patient on prior abx - ct without obvious abscess mentioned, ? hematoma, blood cultures negative - cleared for defibrillator from ID standpoint 2. The patient has elevated creatinine with acute kidney injury, chronic renal failure, and anemia. 3. Acute cerebrovascular accident per history and exam + MRI noted - treatment per primary team and neurology, tpa given 4. Chronic obstructive pulmonary disease and asthma exacerbation. 5. Shortness of breath. 6. Steroids. 7. Congestive heart failure. 8. Leg edema. 9. Hypertension. 10. Blood pressure treatment per primary consultants. 11. No known allergies. 12. Social history negative. 13. Family history noncontributory. 14. MAR was noted. 15. Case discussed with RN. 16. Case discussed and communicated with Diane Silva NP for Dr. Holliday. 17. Continue treatment per primary consultants. 18. Notes and records were noted. 19. Orders were entered and communicated. 20. Case was discussed the patient's family. 21. We will follow with you. Subjective Constitutional: Reports: fatigue; Denies: fever HEENT: Denies: congestion Respiratory: Denies: shortness of breath Cardiovascular: Denies: chest pain Gastrointestinal/Abdominal: Denies: nausea, vomiting, diarrhea Genitourinary: Denies: dysuria, hematuria Neurologic: Denies: headache Psychiatric: Denies: depression Skin: Denies: rash Hematologic: Denies: bleeding Musculoskeletal: Denies: pain Allergies: Coded Allergies: No Known Allergies (Unverified , 01/09/14) Objective Vital Signs Last 24 Hour Vital Signs Date Time Temp Pulse Resp B/P (MAP) Pulse Ox O2 Delivery O2 Flow Rate FiO2 01/12/18 11:45 129/76 01/12/18 09:38 85 129/76 01/12/18 08:00 87 01/12/18 08:00 97.5 87 18 143/76 96 Room Air 97.5 01/12/18 05:39 116/70 01/12/18 05:38 116/70 01/12/18 04:00 98.2 93 19 116/70 96 Room Air 98.2 01/12/18 03:47 89 01/12/18 00:32 121/64 01/12/18 00:00 98.3 83 19 120/69 96 Room Air 98.3 01/11/18 23:51 83 01/11/18 22:00 124/75 01/11/18 20:43 84 124/75 01/11/18 20:00 98.1 84 20 124/75 96 Room Air 98.1 01/11/18 19:00 92 01/11/18 16:00 84 01/11/18 16:00 97.2 82 20 102/58 95 Room Air 97.2 01/11/18 13:12 122/74 01/11/18 13:12 122/74 Height (Feet): 5 Height (Inches): 10.00 Weight (Pounds): 157 General Appearance: no acute distress HEENT: normocephalic, atraumatic, anicteric, mucous membranes moist Respiratory/Chest: lungs clear, normal breath sounds, no respiratory distress Cardiovascular: normal rate, regular rhythm, no gallop/murmur, no JVD Abdomen: normal bowel sounds, soft, non tender, no organomegaly, non distended Genitourinary: other - no reagan Extremities: no cyanosis Skin: no rash 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 Acute small area of right parietal infarct. No hemorrhage. No mass effect or midline shift. 2. Involutional changes with small vessel disease. Chest -x-ray - 01/01 and 01/04 - no consolidation Chest x-ray - 01/06 - copd, no consolidation identified, report noted CT - abdomen/pelvis - IMPRESSION: 1. The right psoas muscle is prominent when compared to the left. There is some mild infiltration of the fat adjacent to the right psoas muscle. Some mild increased density is suspected within the right psoas muscle. This is suspicious for a hematoma. The suspected hematoma cannot be from the adjacent musculature. The right psoas muscle and suspected hematoma together measure approximately 4.8 cm in maximum transverse dimensions. Evaluation for active bleeding cannot be performed without IV contrast. An infectious process or neoplastic process cannot be excluded radiographically. 2. Cardiomegaly. 3. Diverticulosis without evidence for diverticulitis. 01/06 - Chest x-ray - copd (report noted) Microbiology Date/Time Source Procedure Growth Status 01/06/18 13:58 Blood Blood Culture - Final NO GROWTH AFTER 5 DAYS Complete 01/06/18 12:14 Stool Clostridium difficile Toxin Assay - Final Complete 01/09/18 12:55 Urine,Clean Catch Urine Culture - Final Mixed Gram Positive Organism Complete Microbiology Date/Time Source Procedure Growth Status 01/09/18 12:55 Urine,Clean Catch Urine Culture - Final Mixed Gram Positive Organism Complete Laboratory Tests Test 01/12/18 06:48 White Blood Count 13.9 K/UL (4.8-10.8) H Red Blood Count 4.85 M/UL (4.70-6.10) Hemoglobin 14.2 G/DL (14.2-18.0) Hematocrit 44.1 % (42.0-52.0) Mean Corpuscular Volume 91 FL (80-99) Mean Corpuscular Hemoglobin 29.2 PG (27.0-31.0) Mean Corpuscular Hemoglobin Concent 32.1 G/DL (32.0-36.0) Red Cell Distribution Width 15.6 % (11.6-14.8) H Platelet Count 156 K/UL (150-450) Mean Platelet Volume 10.5 FL (6.5-10.1) H Neutrophils (%) (Auto) 77.4 % (45.0-75.0) H Lymphocytes (%) (Auto) 10.6 % (20.0-45.0) L Monocytes (%) (Auto) 10.1 % (1.0-10.0) H Eosinophils (%) (Auto) 1.5 % (0.0-3.0) Basophils (%) (Auto) 0.5 % (0.0-2.0) Sodium Level 140 MMOL/L (136-145) Potassium Level 3.6 MMOL/L (3.5-5.1) Chloride Level 103 MMOL/L (98-107) Carbon Dioxide Level 26 MMOL/L (21-32) Anion Gap 12 mmol/L (5-15) Blood Urea Nitrogen 32 mg/dL (7-18) H Creatinine 2.6 MG/DL (0.55-1.30) H Estimat Glomerular Filtration Rate mL/min (>60) Glucose Level 95 MG/DL (74-106) Calcium Level 9.2 MG/DL (8.5-10.1) Current Medications Medications (Trade) Dose Ordered Sig/Denny Route PRN Reason Start Time Stop Time Status Last Admin Dose Admin Acetaminophen (Tylenol) 650 mg Q4H PRN ORAL Mild Pain (Pain Scale 1-3) 01/08/18 20:00 01/31/18 11:59 Acetaminophen (Tylenol) 650 mg Q4H PRN ORAL T>100.5 01/08/18 20:00 01/31/18 11:59 Allopurinol (Allopurinol) 300 mg DAILY ORAL 01/09/18 09:00 02/03/18 08:59 01/12/18 09:38 Atorvastatin Calcium (Lipitor) 80 mg BEDTIME ORAL 01/08/18 21:00 02/03/18 20:59 01/11/18 20:43 Carvedilol (Coreg) 3.125 mg EVERY 12 HOURS ORAL 01/08/18 21:00 01/31/18 20:59 01/12/18 09:38 Chlorhexidine Gluconate (Caitlin-Hex 2%) 1 applic DAILY@2000 TOPIC 01/08/18 20:00 02/01/18 19:59 01/11/18 20:41 Dextrose (Dextrose 50%) 25 ml STAT PRN IV Hypoglycemia 01/08/18 17:56 02/07/18 17:55 Dextrose (Dextrose 50%) 50 ml STAT PRN IV Hypoglycemia 01/08/18 17:56 02/07/18 17:55 Fluconazole/ Sodium Chloride 100 ml @ 100 mls/hr Q24H IV 01/09/18 09:00 01/14/18 23:59 01/12/18 09:38 Furosemide (Lasix) 40 mg DAILY IV 01/11/18 09:00 02/03/18 20:59 01/12/18 09:38 Heparin Sodium (Porcine) (Heparin 5000 units/ml) 5,000 units EVERY 12 HOURS SUBQ 01/08/18 21:00 02/03/18 20:59 01/11/18 20:44 Hydralazine HCl (Apresoline) 50 mg Q8HR ORAL 01/08/18 22:00 01/31/18 13:59 01/11/18 13:12 Insulin Aspart (NovoLOG) BEFORE MEALS AND HS SUBQ 01/08/18 21:00 02/03/18 16:29 01/11/18 20:48 Isosorbide Dinitrate (Isordil) 10 mg Q6HR ORAL 01/08/18 18:00 01/31/18 17:59 01/12/18 11:45 Olanzapine (ZyPREXA) 2.5 mg HSPRN PRN ORAL Agitation 01/08/18 17:57 02/07/18 17:56 Ondansetron HCl (Zofran) 4 mg Q6H PRN IVP Nausea & Vomiting 01/08/18 17:58 01/31/18 17:57 Pantoprazole (Protonix) 40 mg EVERY 12 HOURS ORAL 01/08/18 21:00 01/31/18 20:59 01/12/18 09:38 Piperacillin Sod/ Tazobactam Sod 3.375 gm/Sodium Chloride 110 ml @ 27.5 mls/hr Q8HR@0200,1000,1800 IVPB 01/09/18 18:00 01/16/18 17:59 01/12/18 11:45 Tamsulosin HCl (Flomax) 0.4 mg Q12HR ORAL 01/08/18 21:00 02/07/18 20:59 01/12/18 09:38 Ted Gonzalez MD January 12, 2018 12:36
[2018-01-12] MEDS ORDERED: Lidocaine 1% Plain 30 ml INJ ONE (13:14)
[2018-01-12] MEDS ORDERED: Heparin 1000 units/ml 1ml Vial ONE (13:20)
[2018-01-12] MEDS ORDERED: Lidocaine 1% MPF 10mg/ml 5ml ONE (13:29)
[2018-01-12] MEDS ORDERED: Propofol 200mg/20ml IV ONE (13:29)
[2018-01-12] MEDS ORDERED: Sterile Water Irrig 1000ml IRRIG ONE (13:30)
[2018-01-12] MEDS ORDERED: NS Irrig 1000ml ONE (13:30)
[2018-01-12] MEDS ORDERED: LR 1000ml ONE (13:30)
--- NOTE | 2018-01-12 13:41 | Pre-Procedure Note/Attestation ---
Pre-Procedure Note/Attestation Complete Prior to Procedure Planned Procedure: left Indications for Procedure Pre-Operative Diagnosis: severe cardiomyopathy. Attestation I attest that I discussed the nature of the procedure; its benefits; risks and complications; and alternatives (and the risks and benefits of such alternatives ), prior to the procedure, with the patient (or the patient's legal branch sales and service representative). I attest that, if there was a reasonable possibility of needing a blood transfusion, the patient (or the patient's legal branch sales and service representative) was given the [facility] standardized written summary, pursuant to the Eze Petty Blood Safety Act ([place] Health and Safety Code # 1645, as amended). I attest that I re-evaluated the patient just prior to the surgery and that there has been no change in the patient's H&P, except as documented below: Andre Howard MD January 12, 2018 13:41
[2018-01-12] MEDS ORDERED: Phenylephrine 10mg/ml Vial ONE (14:10)
--- NOTE | 2018-01-12 14:16 | General Progress Note ---
Assessment/Plan Problem List: (1) CKD (chronic kidney disease) ICD Codes: N18.9 - CKD (chronic kidney disease) SNOMED: 044222398 Qualifiers: Qualified Codes: N18.9 - Chronic kidney disease, unspecified (2) HTN (hypertension) ICD Codes: I10 - HTN (hypertension) SNOMED: 78898867 (3) CHF (congestive heart failure) ICD Codes: I50.9 - CHF (congestive heart failure) SNOMED: 92224457 (4) Respiratory distress ICD Codes: R06.00 - Dyspnea, unspecified SNOMED: 089039756 (5) Dyspnea ICD Codes: R06.00 - Dyspnea, unspecified SNOMED: 959662212 (6) Asthma exacerbation ICD Codes: J45.901 - Unspecified asthma with (acute) exacerbation SNOMED: 678774343 (7) FIONA (acute kidney injury) ICD Codes: N17.9 - Acute kidney failure, unspecified SNOMED: 87915373 (8) CHF exacerbation ICD Codes: I50.9 - Heart failure, unspecified SNOMED: 82906031 Qualifiers: Qualified Codes: I50.9 - Heart failure, unspecified (9) CVA (cerebral vascular accident) ICD Codes: I63.9 - Cerebral infarction, unspecified SNOMED: 077075134 Qualifiers: Qualified Codes: I63.9 - Cerebral infarction, unspecified (10) Peripheral edema ICD Codes: R60.9 - Edema, unspecified SNOMED: 804917509 (11) Cardiomyopathy ICD Codes: I42.9 - Cardiomyopathy SNOMED: 43458771 (12) Malnutrition ICD Codes: E46 - Malnutrition SNOMED: 3647903 (13) Hypokalemia ICD Codes: E87.6 - Hypokalemia SNOMED: 86288615 (14) Prediabetes ICD Codes: R73.03 - Prediabetes SNOMED: 889719409 (15) HLD (hyperlipidemia) ICD Codes: E78.5 - Hyperlipidemia, unspecified SNOMED: 34986298 (16) Leukocytosis ICD Codes: D72.829 - Elevated white blood cell count, unspecified SNOMED: 399168116, 480335475 Status: stable, progressing Assessment/Plan #acute right parietal infarct - Neurology consulted, appreciate rec's - No need for transfer to stroke center at this time per neurology - NIH stroke scale last night was 2 prior to TPA. Repeat NIH stroke scale is 5 - s/p tPA given at 0300 on 01/01 - CT head on 01/01 at 0100 was negative. - MRI brain showing acute small right parietal infarct with no hemorrhage, midline shift, or mass effect - continue permissive hypertension to systolic 160-180s x 24 hours - MRA brain and neck without contrast showing attenuated appearance of the distal right middle cerebral artery likely due to technical issues. Also with short segment stenotic appearance of the right proximal ICA, cannot exclude high -grade stenosis. - carotid U/S negative - repeat CT with no bleed, showing acute infarct. also with some corresponding edema without significant mass effect --> start HSQ - ECHO with doppler showing 25-30% EF, pulmonary hypertension, and left ventricular hypokinesis - bilateral venous duplex negative - check lipid panel and A1c - ST/PT/OT eval - Passed swallow eval, on pureed. video swallow study done, f/u results - neurochecks q4hr - LDL 83. Start lipitor 80mg qhs - will start ASA 81mg after defibb placement #Acute asthma exacerbation - prednisone 40mg PO qd x 5 days (D5/5). discontinued as patient's wheezing resolved - duonebs ATC q6hr - ABGs #Sepsis, unknown etiology - ID consulted, appreciate rec's - continue IV zosyn and diflucan per ID - CXR negative. Repeat CXR negative - trend CBC - WBC downtrending to [address] a/p showing questionable hematoma. C. diff negative. f/u urine cx. CXR negative. Blood cx NGTD. #Acute on chronic systolic CHF / severe cardiomyopathy - cardiology consulted, appreciate rec's - strict I&O - 1.5 L fluid restriction - lasix 80mg IV BID --> lasix 60 IV BID --> lasix 40mg IV BID - permissive HTN with systolic 160-180s given acute CVA till 01/02 - dobutamine gtt titrated down to 1 mcg/min - s/p PICC line 01/03 - EF 25-30% - cardiology recommending defibrillator placement. Cleared per ID for procedure. Patient is scheduled for procedure today. Discussed risks/benefits with family. Family agreeable. Cleared per neurology. #FIONA due to cardiorenal syndrome - nephrology consulted, appreciate rec's - trend Cr - check urine lytes - avoid IVF given CHF exacerbation #Hypokalemia - replete electrolytes prn. monitor BMP and Mg #HLD - start lipitor 80mg #Prediabetes - A1c 6.2 - will start MURIEL for now - if Cr stabilizes, will discharge patient on metformin/glipizide DVT ppx: HSQ Discussed case in detail with nursing staff, case management, cardiology, nephrology, neurology, ID, patient, and family. Case d/w Dr. Holliday who agrees to the plan above. Disposition: [facility] (patient accepted to facility, family/patient agreeable) I spent a total of 40 minutes on this patient's case with greater than 50% spent on care and coordination of the patient. Subjective Date patient seen: January 12, 2018 Time patient seen: 11:00 Allergies: Coded Allergies: No Known Allergies (Unverified , 01/09/14) Subjective - AF, HDS - defibb placement today - family at bedside - accepted to [facility], family/patient agreeable Objective Last 24 Hour Vital Signs Date Time Temp Pulse Resp B/P (MAP) Pulse Ox O2 Delivery O2 Flow Rate FiO2 01/12/18 12:00 97.7 89 18 116/80 95 Room Air 97.7 01/12/18 11:45 129/76 01/12/18 09:38 85 129/76 01/12/18 08:00 87 01/12/18 08:00 97.5 87 18 143/76 96 Room Air 97.5 01/12/18 05:39 116/70 01/12/18 05:38 116/70 01/12/18 04:00 98.2 93 19 116/70 96 Room Air 98.2 01/12/18 03:47 89 01/12/18 00:32 121/64 01/12/18 00:00 98.3 83 19 120/69 96 Room Air 98.3 01/11/18 23:51 83 01/11/18 22:00 124/75 01/11/18 20:43 84 124/75 01/11/18 20:00 98.1 84 20 124/75 96 Room Air 98.1 01/11/18 19:00 92 01/11/18 16:00 84 01/11/18 16:00 97.2 82 20 102/58 95 Room Air 97.2 Intake and Output 01/11/18 01/12/18 19:00 07:00 Intake Total 360 ml Output Total 800 ml 205 ml Balance -440 ml -205 ml Intake Oral 360 ml Output Urine Total 800 ml 205 ml # Bowel Movements 1 2 Laboratory Tests 01/12/18 06:48: White Blood Count 13.9H, Red Blood Count 4.85, Hemoglobin 14.2, Hematocrit 44.1 , Mean Corpuscular Volume 91, Mean Corpuscular Hemoglobin 29.2, Mean Corpuscular Hemoglobin Concent 32.1, Red Cell Distribution Width 15.6H, Platelet Count 156, Mean Platelet Volume 10.5H, Neutrophils (%) (Auto) 77.4H, Lymphocytes (%) (Auto) 10.6L, Monocytes (%) (Auto) 10.1H, Eosinophils (%) (Auto ) 1.5, Basophils (%) (Auto) 0.5, Sodium Level 140, Potassium Level 3.6, Chloride Level 103, Carbon Dioxide Level 26, Anion Gap 12, Blood Urea Nitrogen 32H, Creatinine 2.6H, Estimat Glomerular Filtration Rate , Glucose Level 95, Calcium Level 9.2 Height (Feet): 5 Height (Inches): 10.00 Weight (Pounds): 157 General Appearance: no apparent distress, alert EENT: PERRL/EOMI, normal ENT inspection Neck: non-tender, normal alignment, supple Cardiovascular: normal peripheral pulses, normal rate, regular rhythm Respiratory/Chest: chest wall non-tender, lungs clear, normal breath sounds Abdomen: normal bowel sounds, non tender, soft Extremities: non-tender 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
--- NOTE | 2018-01-12 15:14 | Brief Operative Note ---
Immediate Post Operative Note Operative Note Pre-op Diagnosis: severe cardiomyopathy. Procedure: Dual Chamber ICD implant dictated [id number] Post-op Diagnosis: same as pre-op Specimen: none Complications: none Condition: stable Fluids: none Estimated Blood Loss: minimal Implant(s) used?: Yes Andre Howard MD January 12, 2018 15:14
[2018-01-12] MEDS ORDERED: Tylenol #3 tab (300mg/30mg) ORAL PRN (15:15)
--- NOTE | 2018-01-12 15:29 | Immediate Post-Op Evaluation ---
Immediate Post-Op Evalulation Immediate Post-Op Evalulation Procedure: defibrillator implant Date of Evaluation: January 12, 2018 Time of Evaluation: 15:15 IV Fluids: NS 30ml Blood Products: 0 Estimated Blood Loss: 20ml Urinary Output: 0 Blood Pressure Systolic: 99 Blood Pressure Diastolic: 70 Pulse Rate: 95 Respiratory Rate: 15 O2 Sat by Pulse Oximetry: 99 Temperature (Fahrenheit): 98.8 Pain Score (1-10): 0 Nausea: No Vomiting: No Complications none Patient Status: awake, patent, none Hydration Status: adequate Drug: zosyn started on floor Given Within 1 Hr of Incision: Yes Shreya Madrid M.D. January 12, 2018 15:29
[2018-01-12] MEDS ORDERED: DiphenhydrAMINE 50mg/ml Inj IVP PRN (15:30)
--- NOTE | 2018-01-12 16:19 | 48 Hour Post Anesthesia Eval ---
Post Anesthesia Evaluation Procedure: defibrillator implant Date of Evaluation: January 12, 2018 Time of Evaluation: 15:40 Blood Pressure Systolic: 123 0: 73 Pulse Rate: 98 Respiratory Rate: 17 Temperature (Fahrenheit): 98.8 O2 Sat by Pulse Oximetry: 99 Airway: patent Nausea: No Vomiting: No Pain Intensity: 0 Hydration Status: adequate Mental Status/LOC: patient returned to baseline Post-Anesthesia Complications: none Follow-up care needed: N/A Shreya Madrid M.D. January 12, 2018 16:19
--- NOTE | 2018-01-12 16:39 | Diagnostic Imaging Report ---
Indication: Pacemaker Comparison: None A single view chest radiograph was obtained. Findings: Pacemaker in the left anterior chest wall. There is no pneumothorax. There is blunting of the left costophrenic angle which is likely due to a small pleural effusion. Heart is enlarged. PICC line again noted. IMPRESSION: Pacemaker in good position. No pneumothorax
--- NOTE | 2018-01-12 16:51 | Neurology Progress Note ---
Interim History Interim History Interim History Mr. Winslow just got back from his AICD implant. He is still under the influence of anesthesia. He is eager to eat. His left side is still significantly weak. He is able to see well on his left side. He is aware of his left sided deficits. He is still neglecting the left side. He has noted no new neurologic symptoms. Review of Systems Neuro Review of Systems Benign. Objective Physical Exam Last Vital Signs Date Time Temp Pulse Resp B/P (MAP) Pulse Ox O2 Delivery O2 Flow Rate FiO2 01/12/18 16:19 209.8 98 17 99 01/12/18 15:40 123/73 Nasal Cannula 3.0 01/06/18 08:16 21 Laboratory Tests Test 01/12/18 06:48 White Blood Count 13.9 K/UL (4.8-10.8) H Red Blood Count 4.85 M/UL (4.70-6.10) Hemoglobin 14.2 G/DL (14.2-18.0) Hematocrit 44.1 % (42.0-52.0) Mean Corpuscular Volume 91 FL (80-99) Mean Corpuscular Hemoglobin 29.2 PG (27.0-31.0) Mean Corpuscular Hemoglobin Concent 32.1 G/DL (32.0-36.0) Red Cell Distribution Width 15.6 % (11.6-14.8) H Platelet Count 156 K/UL (150-450) Mean Platelet Volume 10.5 FL (6.5-10.1) H Neutrophils (%) (Auto) 77.4 % (45.0-75.0) H Lymphocytes (%) (Auto) 10.6 % (20.0-45.0) L Monocytes (%) (Auto) 10.1 % (1.0-10.0) H Eosinophils (%) (Auto) 1.5 % (0.0-3.0) Basophils (%) (Auto) 0.5 % (0.0-2.0) Sodium Level 140 MMOL/L (136-145) Potassium Level 3.6 MMOL/L (3.5-5.1) Chloride Level 103 MMOL/L (98-107) Carbon Dioxide Level 26 MMOL/L (21-32) Anion Gap 12 mmol/L (5-15) Blood Urea Nitrogen 32 mg/dL (7-18) H Creatinine 2.6 MG/DL (0.55-1.30) H Estimat Glomerular Filtration Rate mL/min (>60) Glucose Level 95 MG/DL (74-106) Calcium Level 9.2 MG/DL (8.5-10.1) Neurologic Exam Objective PHYSICAL EXAMINATION: GENERAL: He is a well-developed relatively well-nourished black gentleman, lying in bed, in no acute distress. HEAD: Normocephalic and atraumatic. NECK: No neck rigidity was observed. EENT: Examination benign. NEUROLOGICAL EXAMINATION: MENTAL STATUS EXAMINATION: He was awake but not completely alert. He was oriented to person, place, but not to time. He was unable to cooperate for further mental status tests. He was still under the influence of anesthesia. SPEECH: He had a mild dysarthria. LANGUAGE: He had no aphasia. CRANIAL NERVES EXAMINATION: II: The visual field were full on confrontation testing. III, IV & : External ocular movements were full and the pupils 3 mm in diameter, equal, round, regular, and reactive to light. V: He had normal facial sensations and the temporales, masseters, and pterygoids functioned normally. VII: He had left seventh central facial paresis. VIII: He was able to hear well bilaterally and had no nystagmus. IX: The palate moved symmetrically on phonation. X: He had no hoarseness of voice. XI: The sternocleidomastoids and trapezii functioned normally. XII: The tongue was in the midline without any fasciculations or atrophy. MOTOR SYSTEM: The tone was normal on the right side and diminished on the left side. Examination of muscle mass revealed no focal wasting. Examination of power revealed G 5/5 power in the right upper extremity. In the right lower extremity he also had G 5/5 power except for G 5-/5 power in the iliopsoas. On the left side, he had G 0/5. SENSORY EXAMINATION: He tended to neglect his left side. He made errors on testing for pinprick and light touch over his entire left body. In addition, he had normal graphesthesia on the right side and agraphesthesia on the left side. REFLEXES: 1++ on the right and 0 on the left at the biceps, triceps, and brachioradialis, 1++ on the right and 2++ on the left at the knees. 0 at both ankles. The plantar response was flexor on the right and extensor on the left. COORDINATION: He performed well on [id number] testing on the right side. He was unable to perform on the left side. He was unable to perform heel-to- puri testing bilaterally. STANCE & GAIT: Could not be tested. Impression/Recommendations Diagnostic Impression 1. Mr Agnes Winslow is a 77-year-old, right-handed, black gentleman, who does have a past history of hypertension, chronic kidney disease, cardiomyopathy, severe congestive heart failure with an ejection fraction at 15% in the near past and asthma. On 01/01/2018, he suddenly developed left-sided weakness. He was brought into the [facility] emergency room, diagnosed with a left brain stroke, and given tPA. Following that he became significantly weaker on his left side, has developed left-sided neglect, and some visual problems on that side. 2. He just got back from his AICD implant. He is still under the influence of anesthesia. He is eager to eat. His left side is still significantly weak. He is able to see well on his left side. He is aware of his left sided deficits. He is still neglecting the left side. He has noted no new neurologic symptoms. 3. On neurological examination at this time, he is disoriented to time, has problems with memory, has a mild dysarthria, he has a left seventh central facial paresis, left hemiplegia, right proximal lower extremity weakness, a left hemisensory deficit and agraphesthesia, loss of deep tendon reflexes in the upper extremities with a brisk left knee jerk and extensor plantar response on the left side. 4. The CT scan of the brain without contrast performed on 01/01/2018 was read as being normal. 5. An MRI scan of the brain performed on 01/01/2018 revealed "an acute small area of right parietal infarct, but no other pathology". 6. The repeat CT of the brain done on 01/03/18 revealed an acute infarct in the right frontal and temporal lobes. No associated acute hemorrhage. 7. The carotid duplex scan was reported as being within normal limits. 8. 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 His neurologic function was improving. However his weakness is worse today but he is still under the influence of anesthesia. Recommendations 1. Continue present management. 2. Physical, occupational and speech and language therapy. 3. Consider acute rehabilitation. 4. ASA 81 mg q day. 7. Continue Lipitor with LDL goal of <70. Arun Lara M.D., M.S.P.H. ARUN LARA January 12, 2018 16:51
[2018-01-12] MEDS ORDERED: NS 275ml ONE (19:58)
[2018-01-12] MEDS ORDERED: Tubing IV Secondary IV ONE (19:58)
[2018-01-12] MEDS: Atorvastatin 80mg tab ORAL SCH (20:35)
[2018-01-12] MEDS: Dyna-Hex 2% Top Sol 2oz TOPIC SCH (20:36)
[2018-01-12] MEDS: ceFAZolin sod 1 GM in D5W 110 ML IVP SCH (20:36)
[2018-01-12] MEDS ORDERED: ceFAZolin sod 1 GM in D5W 55 ML IVP SCH (22:00)
--- NOTE | 2018-01-12 23:12 | General Progress Note ---
Assessment/Plan Status: stable, progressing Assessment/Plan -ativan prn -zyprexa prn encephalopathy resolved Subjective Date patient seen: January 12, 2018 Neurologic/Psychiatric: Reports: anxiety, depressed, emotional problems Allergies: Coded Allergies: No Known Allergies (Unverified , 01/09/14) Subjective the pt is doing well Objective Last 24 Hour Vital Signs Date Time Temp Pulse Resp B/P (MAP) Pulse Ox O2 Delivery O2 Flow Rate FiO2 01/12/18 21:56 114/68 01/12/18 20:35 72 111/72 01/12/18 20:00 97 01/12/18 20:00 97.7 73 20 111/73 98 Nasal Cannula 3.0 97.7 01/12/18 17:32 137/80 01/12/18 16:30 97.3 95 18 137/80 97 Nasal Cannula 3.0 97.3 01/12/18 16:19 209.8 98 17 99 01/12/18 16:15 97.6 91 15 129/77 99 Nasal Cannula 3.0 97.6 01/12/18 16:00 98 17 121/70 99 Nasal Cannula 3.0 01/12/18 16:00 87 01/12/18 15:40 98 17 123/73 99 Nasal Cannula 3.0 01/12/18 15:30 90 16 121/76 100 Nasal Cannula 3.0 01/12/18 15:29 209.8 95 15 99 01/12/18 15:20 92 18 117/75 99 Nasal Cannula 3.0 01/12/18 15:15 98.8 95 15 99/70 99 Nasal Cannula 3.0 98.8 01/12/18 12:00 97.7 89 18 116/80 95 Room Air 97.7 01/12/18 11:45 129/76 01/12/18 09:38 85 129/76 01/12/18 08:00 87 01/12/18 08:00 97.5 87 18 143/76 96 Room Air 97.5 01/12/18 05:39 116/70 01/12/18 05:38 116/70 01/12/18 04:00 98.2 93 19 116/70 96 Room Air 98.2 01/12/18 03:47 89 01/12/18 00:32 121/64 01/12/18 00:00 98.3 83 19 120/69 96 Room Air 98.3 01/11/18 23:51 83 Intake and Output 01/11/18 01/12/18 19:00 07:00 Intake Total 360 ml Output Total 800 ml 205 ml Balance -440 ml -205 ml Intake Oral 360 ml Output Urine Total 800 ml 205 ml # Bowel Movements 1 2 Laboratory Tests 01/12/18 06:48: White Blood Count 13.9H, Red Blood Count 4.85, Hemoglobin 14.2, Hematocrit 44.1 , Mean Corpuscular Volume 91, Mean Corpuscular Hemoglobin 29.2, Mean Corpuscular Hemoglobin Concent 32.1, Red Cell Distribution Width 15.6H, Platelet Count 156, Mean Platelet Volume 10.5H, Neutrophils (%) (Auto) 77.4H, Lymphocytes (%) (Auto) 10.6L, Monocytes (%) (Auto) 10.1H, Eosinophils (%) (Auto ) 1.5, Basophils (%) (Auto) 0.5, Sodium Level 140, Potassium Level 3.6, Chloride Level 103, Carbon Dioxide Level 26, Anion Gap 12, Blood Urea Nitrogen 32H, Creatinine 2.6H, Estimat Glomerular Filtration Rate , Glucose Level 95, Calcium Level 9.2 Height (Feet): 5 Height (Inches): 10.00 Weight (Pounds): 157 Ralph Alva M.D. January 12, 2018 23:12
[2018-01-13] VITALS: BP 125/74
[2018-01-13] MEDS: Zosyn 3.375gm q8h **Extended infusion IVPB SCH ×6 (01:32→17:33)
[2018-01-13 04:00] VITALS: BP 111/73
[2018-01-13] MEDS: HydrALAZINE 50mg tab ORAL SCH ×3 (05:05→22:00)
--- NOTE | 2018-01-13 06:02 | Operative Note - Dictated ---
DATE OF OPERATION: 01/12/2018 NOTE: POOR AUDIO DUAL-CHAMBER DEFIBRILLATOR IMPLANTATION INDICATION FOR PROCEDURE: Severe cardiomyopathy more than 6 months despite medical therapy. PROCEDURE PERFORMED: 1. Dual-chamber defibrillator implantation. 2. Fluoroscopic supervision and interpretation. 3. Defibrillator reprogramming after procedure. OPERATIVE REPORT: The patient was brought into the operating room in the fasting state and after informed consent was obtained. The patient was prepped and draped in usual fashion. Conscious sedation was obtained by the anesthesiologist. After prep and drape under sterile condition, after which he received antibiotic incision. A total of 20 mL of lidocaine was given to left prepectoralis area. Incision was made along the left deltopectoral groove. Sharp and blunt dissection was made to the level of the pectoralis fascia. The cephalic vein was isolated and the cephalic vein cutdown was performed. The right atrial and right ventricular lead was placed and cephalic vein was placed in right atrial appendage and right ventricular apex with excellent sensing and pacing parameters. Both leads were then affixed to underlying pectoralis fascia. A pocket was made close to the venous access was irrigated with antibiotic solution. Four leads were then connected to the defibrillator and left in the pocket. The pocket was then closed in three layers using 2-0 Vicryl and Dermabond. The patient suffered no immediate complications from the procedure and was transferred to recovery room in stable condition. FINDINGS: Defibrillator is from [employer] with model #347902, serial number [id number], again from [employer]. The right atrial lead is from [employer], is 53, serial number is [id number]. Right ventricular lead is from [employer] 6518, serial number [id number]. The P-wave amplitude is 4 millivolts, threshold is 0.4 volts at 0.4 millisecond, impedance of . The R-wave is 19.7 millivolts and threshold is 0.5 volts at 0.4 millisecond, impedance of ohms. The P-wave is 3.5 millivolts, threshold is 0.7 volts at 0.4 millisecond, impedance of 607 ohms. IMPRESSION: 1. Successful dual-chamber defibrillator implantation. 2. ICD was programmed three zones. The monitored zone had a heart rate of 150 to 180 and the VT zone had the heart rates of 180 to 220 and the VF zone heart rate is more than 220 beats per minute, pacing during charging and then shocks. 3. No other complications throughout the procedure. Andre Howard M.D. DR: GUS JOB#: [id number] CC:
[2018-01-13] MEDS: NovoLOG Insulin Flexpen SUBQ SCH ×4 (06:39→21:56)
--- NOTE | 2018-01-13 07:53 | General Progress Note ---
Assessment/Plan Status: stable Assessment/Plan #. Thrombocytopenia, potentially secondary to underlying medications versus infection. Has been seen by Cardiology Service, meds have been reviewed. Currently in the 100-150k range --> hepatitis and hiv are negative, US of the abdomen is pending, to r/o hsm and cirrhosis is negative ---> transfuse if plt count ever <20k --> no transfusion needed #. Leukocytosis. Likely related to underlying ID issue. ? sepsis, ? reactive to cva, valeria, aspiration risk, abdomen benign, ? uti, ua with 1 + le and moderate bacteria but urine culture mixed --> Continue antibiotics as per primary team and Infectious Disease prn --> abx as per ID, antibiotics on board #. Anemia due to underlying chronic disease. Continue to closely monitor. significantly improved --> at this time, hold off on extensive workup unless hgb less than 10 #. Acute cerebrovascular accident, noted on MRI. Further management per neurology #. Shortness of breath seen by pulm --> appreciate their recs #. Sepsis ID service is following #. Hypertension. Elevated blood pressure. --> currently controlled --> further management per cards Subjective Date patient seen: January 13, 2018 Allergies: Coded Allergies: No Known Allergies (Unverified , 01/09/14) All Systems: reviewed and negative except above Subjective Patient s/p post-op, is stable. Picc line intact. No medical distress. Objective Last 24 Hour Vital Signs Date Time Temp Pulse Resp B/P (MAP) Pulse Ox O2 Delivery O2 Flow Rate FiO2 01/13/18 05:06 111/73 01/13/18 05:05 111/73 01/13/18 04:00 97.7 73 20 98 Nasal Cannula 3.0 97.7 01/13/18 04:00 95 01/13/18 00:00 97.8 88 18 125/74 98 Nasal Cannula 3.0 97.8 01/13/18 00:00 95 01/12/18 23:35 125/73 01/12/18 21:56 114/68 01/12/18 20:35 72 111/72 01/12/18 20:00 97 01/12/18 20:00 97.7 73 20 11173 98 Nasal Cannula 3.0 97.7 01/12/18 17:32 137/80 01/12/18 16:30 97.3 95 18 137/80 97 Nasal Cannula 3.0 97.3 01/12/18 16:19 209.8 98 17 99 01/12/18 16:15 97.6 91 15 129/77 99 Nasal Cannula 3.0 97.6 01/12/18 16:00 98 17 121/70 99 Nasal Cannula 3.0 01/12/18 16:00 87 01/12/18 15:40 98 17 123/73 99 Nasal Cannula 3.0 01/12/18 15:30 90 16 121/76 100 Nasal Cannula 3.0 01/12/18 15:29 209.8 95 15 99 01/12/18 15:20 92 18 117/75 99 Nasal Cannula 3.0 01/12/18 15:15 98.8 95 15 99/70 99 Nasal Cannula 3.0 98.8 01/12/18 12:00 97.7 89 18 116/80 95 Room Air 97.7 01/12/18 11:45 129/76 01/12/18 09:38 85 129/76 01/12/18 08:00 87 01/12/18 08:00 97.5 87 18 143/76 96 Room Air 97.5 Intake and Output 01/12/18 01/13/18 19:00 07:00 Intake Total 300.5 ml 330.0 ml Output Total 210 ml Balance 90.5 ml 330.0 ml IV Total 300.5 ml 330.0 ml Output Urine Total 200 ml Estimated Blood Loss 10 ml # Voids 2 2 # Bowel Movements 1 2 Laboratory Tests 01/13/18 06:40: White Blood Count [Pending], Red Blood Count [Pending], Hemoglobin [Pending], Hematocrit [Pending], Mean Corpuscular Volume [Pending], Mean Corpuscular Hemoglobin [Pending], Mean Corpuscular Hemoglobin Concent [Pending], Red Cell Distribution Width [Pending], Platelet Count [Pending], Mean Platelet Volume [ Pending], Neutrophils (%) (Auto) [Pending], Lymphocytes (%) (Auto) [Pending], Monocytes (%) (Auto) [Pending], Eosinophils (%) (Auto) [Pending], Basophils (%) (Auto) [Pending], Sodium Level [Pending], Potassium Level [Pending], Chloride Level [Pending], Carbon Dioxide Level [Pending], Blood Urea Nitrogen [Pending], Creatinine [Pending], Estimat Glomerular Filtration Rate [Pending], Glucose Level [Pending], Calcium Level [Pending] Height (Feet): 5 Height (Inches): 10.00 Weight (Pounds): 158 General Appearance: no apparent distress EENT: normal ENT inspection Neck: supple Cardiovascular: normal rate Respiratory/Chest: lungs clear Abdomen: non tender Mahendra Marinelli MD January 13, 2018 07:53
[2018-01-13 08:00] VITALS: BP 114/63
[2018-01-13 08:11] LABS: BASOPHILS % (AUTO) 0.5 % (0.0-2.0); EOSINOPHILS % (AUTO) 0.4 % (0.0-3.0); HEMATOCRIT 40.6 % (42.0-52.0); HEMOGLOBIN 12.8 G/DL (14.2-18.0); LYMPHOCYTES % (AUTO) 6.8 % (20.0-45.0); MEAN CORPUSCULAR VOLUME 92 FL (80-99); MONOCYTES % (AUTO) 10.9 % (1.0-10.0); NEUTROPHILS % (AUTO) 81.5 % (45.0-75.0); PLATELET COUNT 153 K/UL (150-450); RED BLOOD COUNT 4.42 M/UL (4.70-6.10); RED CELL DISTRIBUTION WIDTH 15.9 % (11.6-14.8)
[2018-01-13 08:16] LABS: ANION GAP 12 mmol/L (5-15); BLOOD UREA NITROGEN 36 mg/dL (7-18); CALCIUM 9.3 MG/DL (8.5-10.1); CARBON DIOXIDE 25 MMOL/L (21-32); CHLORIDE 104 MMOL/L (98-107); CREATININE 2.8 MG/DL (0.55-1.30); POTASSIUM 3.9 MMOL/L (3.5-5.1); SODIUM 140 MMOL/L (136-145)
[2018-01-13] MEDS: Tamsulosin 0.4mg cap ORAL SCH ×2 (08:42→21:53)
--- NOTE | 2018-01-13 08:46 | 48 Hour Post Anesthesia Eval ---
Post Anesthesia Evaluation Procedure: defibrillator implant Date of Evaluation: January 13, 2018 Time of Evaluation: 08:45 Blood Pressure Systolic: 128 0: 76 Pulse Rate: 82 Respiratory Rate: 22 Temperature (Fahrenheit): 97.6 O2 Sat by Pulse Oximetry: 98 Airway: patent Nausea: No Vomiting: No Pain Intensity: 2 Hydration Status: adequate Cardiopulmonary Status: stable Mental Status/LOC: patient returned to baseline Follow-up Care/Observations: n/a Post-Anesthesia Complications: none Follow-up care needed: N/A Conrad Beach MD January 13, 2018 08:46
[2018-01-13] MEDS: Heparin 5000 units/ml inj SUBQ SCH ×2 (08:47→21:55)
[2018-01-13] MEDS: ceFAZolin sod 1 GM in D5W 110 ML IVP SCH ×2 (10:03→21:52)
[2018-01-13 11:25] VITALS: BP 116/58
--- NOTE | 2018-01-13 12:34 | Nephrology Progress Note ---
Assessment/Plan Problem List: (1) CKD (chronic kidney disease) (2) CHF (congestive heart failure) (3) Cardiomyopathy (4) Proteinuria Assessment Cr 2.8 WBCs elevated CKD- chronic systolic heart failure Right heart failuer Edema due to above and possible venous insuf Non-ischemic cardiomyopathy no cad by cath 2016 History of DVT pulmonary HTN h/o Thrombocytopenia HTN Proteinuria previous echo: Severe global left ventricular hypokinesis with septal thinning. Left ventricular ejection fraction estimated to be 10-15 %. Plan Per ID- mag and K supplement as needed Optimize cardiac status, monitor renal parameters Avoid nephrotoxics per orders Subjective ROS Limited/Unobtainable: No Constitutional: Reports: malaise, weakness Objective Objective Last 24 Hour Vital Signs Date Time Temp Pulse Resp B/P (MAP) Pulse Ox O2 Delivery O2 Flow Rate FiO2 01/13/18 11:31 116/58 01/13/18 11:25 97.6 86 20 116/58 95 Nasal Cannula 3.0 97.6 01/13/18 08:46 207.7 82 22 98 01/13/18 08:42 93 114/63 01/13/18 08:00 93 01/13/18 08:00 97.7 93 20 114/63 98 Nasal Cannula 3.0 97.7 01/13/18 05:06 111/73 01/13/18 05:05 111/73 01/13/18 04:00 97.7 73 20 111/73 98 Nasal Cannula 3.0 97.7 01/13/18 04:00 95 01/13/18 00:00 97.8 88 18 125/74 98 Nasal Cannula 3.0 97.8 01/13/18 00:00 95 01/12/18 23:35 125/73 01/12/18 21:56 114/68 01/12/18 20:35 72 111/72 01/12/18 20:00 97 01/12/18 20:00 97.7 73 20 111/73 98 Nasal Cannula 3.0 97.7 01/12/18 17:32 137/80 01/12/18 16:30 97.3 95 18 137/80 97 Nasal Cannula 3.0 97.3 01/12/18 16:19 209.8 98 17 99 01/12/18 16:15 97.6 91 15 129/77 99 Nasal Cannula 3.0 97.6 01/12/18 16:00 98 17 121/70 99 Nasal Cannula 3.0 01/12/18 16:00 87 01/12/18 15:40 98 17 123/73 99 Nasal Cannula 3.0 01/12/18 15:30 90 16 121/76 100 Nasal Cannula 3.0 01/12/18 15:29 209.8 95 15 99 01/12/18 15:20 92 18 117/75 99 Nasal Cannula 3.0 01/12/18 15:15 98.8 95 15 99/70 99 Nasal Cannula 3.0 98.8 Intake and Output 01/12/18 01/13/18 19:00 07:00 Intake Total 300.5 ml 330.0 ml Output Total 210 ml Balance 90.5 ml 330.0 ml IV Total 300.5 ml 330.0 ml Output Urine Total 200 ml Estimated Blood Loss 10 ml # Voids 2 2 # Bowel Movements 1 2 Laboratory Tests 01/13/18 06:40: White Blood Count 16.0H, Red Blood Count 4.42L, Hemoglobin 12.8L, Hematocrit 40.6L, Mean Corpuscular Volume 92, Mean Corpuscular Hemoglobin 29.0, Mean Corpuscular Hemoglobin Concent 31.6L, Red Cell Distribution Width 15.9H, Platelet Count 153, Mean Platelet Volume 11.6H, Neutrophils (%) (Auto) 81.5H, Lymphocytes (%) (Auto) 6.8L, Monocytes (%) (Auto) 10.9H, Eosinophils (%) (Auto) 0.4, Basophils (%) (Auto) 0.5, Sodium Level 140, Potassium Level 3.9, Chloride Level 104, Carbon Dioxide Level 25, Anion Gap 12, Blood Urea Nitrogen 36H, Creatinine 2.8H, Estimat Glomerular Filtration Rate , Glucose Level 149H, Calcium Level 9.3 Height (Feet): 5 Height (Inches): 10.00 Weight (Pounds): 158 General Appearance: no apparent distress, lethargic Cardiovascular: normal rate Respiratory/Chest: decreased breath sounds Abdomen: distended Objective no other change BHARATHI LOVE January 13, 2018 12:34
--- NOTE | 2018-01-13 15:39 | Cardiac Electrophysiology PN ---
Assessment/Plan Assessment/Plan 1. 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 On Lasix 40 mg IV bid, Coreg 3.125 mg b.i.d., hydralazine 50 mg tid , Isordil 10 mg every 6 hours 2. S/P [employer] dual chamber ICD implant yesterday. Interrogated and showed Nl Fx. 2. Renal failure. Mildly improved from 3.7 to 2.8. F/U by Dr. Dennis 3. Elevated liver function tests likely due to right heart failure and hepatic congestion. 4. Elevated white count On Abx per Dr Miryam NIÑO RN Subjective Subjective No events. Had ICD yesterday Objective Last 24 Hour Vital Signs Date Time Temp Pulse Resp B/P (MAP) Pulse Ox O2 Delivery O2 Flow Rate FiO2 01/13/18 13:33 109/62 01/13/18 12:00 91 01/13/18 11:31 116/58 01/13/18 11:25 97.6 86 20 116/58 95 Nasal Cannula 3.0 97.6 01/13/18 08:46 207.7 82 22 98 01/13/18 08:42 93 114/63 01/13/18 08:00 93 01/13/18 08:00 97.7 93 20 114/63 98 Nasal Cannula 3.0 97.7 01/13/18 05:06 111/73 01/13/18 05:05 111/73 01/13/18 04:00 97.7 73 20 111/73 98 Nasal Cannula 3.0 97.7 01/13/18 04:00 95 01/13/18 00:00 97.8 88 18 125/74 98 Nasal Cannula 3.0 97.8 01/13/18 00:00 95 01/12/18 23:35 125/73 01/12/18 21:56 114/68 01/12/18 20:35 72 111/72 01/12/18 20:00 97 01/12/18 20:00 97.7 73 20 111/73 98 Nasal Cannula 3.0 97.7 01/12/18 17:32 137/80 01/12/18 16:30 97.3 95 18 137/80 97 Nasal Cannula 3.0 97.3 5/30/18 16:19 209.8 98 17 99 01/12/18 16:15 97.6 91 15 129/77 99 Nasal Cannula 3.0 97.6 01/12/18 16:00 98 17 121/70 99 Nasal Cannula 3.0 01/12/18 16:00 87 01/12/18 15:40 98 17 123/73 99 Nasal Cannula 3.0 Intake and Output 01/12/18 01/13/18 19:00 07:00 Intake Total 300.5 ml 330.0 ml Output Total 210 ml Balance 90.5 ml 330.0 ml IV Total 300.5 ml 330.0 ml Output Urine Total 200 ml Estimated Blood Loss 10 ml # Voids 2 2 # Bowel Movements 1 2 Laboratory Tests Test 01/13/18 06:40 White Blood Count 16.0 K/UL (4.8-10.8) H Red Blood Count 4.42 M/UL (4.70-6.10) L Hemoglobin 12.8 G/DL (14.2-18.0) L Hematocrit 40.6 % (42.0-52.0) L Mean Corpuscular Volume 92 FL (80-99) Mean Corpuscular Hemoglobin 29.0 PG (27.0-31.0) Mean Corpuscular Hemoglobin Concent 31.6 G/DL (32.0-36.0) L Red Cell Distribution Width 15.9 % (11.6-14.8) H Platelet Count 153 K/UL (150-450) Mean Platelet Volume 11.6 FL (6.5-10.1) H Neutrophils (%) (Auto) 81.5 % (45.0-75.0) H Lymphocytes (%) (Auto) 6.8 % (20.0-45.0) L Monocytes (%) (Auto) 10.9 % (1.0-10.0) H Eosinophils (%) (Auto) 0.4 % (0.0-3.0) Basophils (%) (Auto) 0.5 % (0.0-2.0) Sodium Level 140 MMOL/L (136-145) Potassium Level 3.9 MMOL/L (3.5-5.1) Chloride Level 104 MMOL/L (98-107) Carbon Dioxide Level 25 MMOL/L (21-32) Anion Gap 12 mmol/L (5-15) Blood Urea Nitrogen 36 mg/dL (7-18) H Creatinine 2.8 MG/DL (0.55-1.30) H Estimat Glomerular Filtration Rate mL/min (>60) Glucose Level 149 MG/DL (74-106) H Calcium Level 9.3 MG/DL (8.5-10.1) Objective HEAD AND NECK: Mild JVD. LUNGS: Decreased breath sounds. CARDIOVASCULAR: Regular S1 and S2 with no gallop or murmur. ICD left subclavian ABDOMEN: Soft. EXTREMITIES: 2+ pitting edema. Andre Howard MD January 13, 2018 15:39
[2018-01-13 16:00] VITALS: BP 108/60
--- NOTE | 2018-01-13 16:27 | Infectious Diseases Prog Note ---
Assessment/Plan Assessment/Plan ASSESSMENT AND PLAN: 1. leukocytosis, ? sepsis, valeria, ? uti, ua worse, ? fungemia, recent steroids - leukocytosis worse but had defibrillator placed, ? post-procedure inflammatory responsive, no fevers - zosyn and diflucan - day # 7 - f/u labs, recheck ua and culture - ct without obvious abscess mentioned, ? hematoma, blood cultures negative 2. The patient has elevated creatinine with acute kidney injury, chronic renal failure, and anemia. 3. Acute cerebrovascular accident per history and exam + MRI noted - treatment per primary team and neurology, tpa given 4. Chronic obstructive pulmonary disease and asthma exacerbation. 5. Shortness of breath. 6. Steroids. 7. Congestive heart failure. 8. Leg edema. 9. Hypertension. 10. Blood pressure treatment per primary consultants. 11. No known allergies. 12. Social history negative. 13. Family history noncontributory. 14. MAR was noted. 15. Case discussed with RN. 16. Case discussed and communicated with Diane Silva NP for Dr. Holliday. 17. Continue treatment per primary consultants. 18. Notes and records were noted. 19. Orders were entered and communicated. 20. Case was discussed the patient's family. 21. We will follow with you. Subjective Constitutional: Denies: fever HEENT: Denies: congestion Respiratory: Denies: shortness of breath Cardiovascular: Denies: chest pain Gastrointestinal/Abdominal: Denies: nausea, vomiting, diarrhea Genitourinary: Reports: other - + condom catheter Neurologic: Denies: headache Psychiatric: Denies: depression Skin: Denies: rash Hematologic: Denies: bleeding Musculoskeletal: Denies: pain Allergies: Coded Allergies: No Known Allergies (Unverified , 01/09/14) Objective Vital Signs Last 24 Hour Vital Signs Date Time Temp Pulse Resp B/P (MAP) Pulse Ox O2 Delivery O2 Flow Rate FiO2 01/13/18 13:33 109/62 01/13/18 12:00 91 01/13/18 11:31 116/58 01/13/18 11:25 97.6 86 20 116/58 95 Nasal Cannula 3.0 97.6 01/13/18 08:46 207.7 82 22 98 01/13/18 08:42 93 114/63 01/13/18 08:00 93 01/13/18 08:00 97.7 93 20 114/63 98 Nasal Cannula 3.0 97.7 01/13/18 05:06 111/73 01/13/18 05:05 111/73 01/13/18 04:00 97.7 73 20 111/73 98 Nasal Cannula 3.0 97.7 01/13/18 04:00 95 01/13/18 00:00 97.8 88 18 125/74 98 Nasal Cannula 3.0 97.8 01/13/18 00:00 95 01/12/18 23:35 125/73 01/12/18 21:56 114/68 01/12/18 20:35 72 111/72 01/12/18 20:00 97 01/12/18 20:00 97.7 73 20 111/73 98 Nasal Cannula 3.0 97.7 01/12/18 17:32 137/80 01/12/18 16:30 97.3 95 18 137/80 97 Nasal Cannula 3.0 97.3 Height (Feet): 5 Height (Inches): 10.00 Weight (Pounds): 158 General Appearance: no acute distress HEENT: normocephalic, atraumatic, anicteric, mucous membranes moist Respiratory/Chest: lungs clear, normal breath sounds, no respiratory distress, no accessory muscle use Cardiovascular: normal rate, regular rhythm, no gallop/murmur, no JVD Abdomen: normal bowel sounds, soft, non tender, no organomegaly, non distended Genitourinary: other - no reagan, + condom catheter, no cva pain Extremities: no cyanosis Skin: no rash 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 Acute small area of right parietal infarct. No hemorrhage. No mass effect or midline shift. 2. Involutional changes with small vessel disease. Chest -x-ray - 01/01 and 01/04 - no consolidation Chest x-ray - 01/06 - copd, no consolidation identified, report noted CT - abdomen/pelvis - IMPRESSION: 1. The right psoas muscle is prominent when compared to the left. There is some mild infiltration of the fat adjacent to the right psoas muscle. Some mild increased density is suspected within the right psoas muscle. This is suspicious for a hematoma. The suspected hematoma cannot be from the adjacent musculature. The right psoas muscle and suspected hematoma together measure approximately 4.8 cm in maximum transverse dimensions. Evaluation for active bleeding cannot be performed without IV contrast. An infectious process or neoplastic process cannot be excluded radiographically. 2. Cardiomegaly. 3. Diverticulosis without evidence for diverticulitis. 01/06 - Chest x-ray - copd (report noted) Microbiology Date/Time Source Procedure Growth Status 01/06/18 13:58 Blood Blood Culture - Final NO GROWTH AFTER 5 DAYS Complete 01/06/18 12:14 Stool Clostridium difficile Toxin Assay - Final Complete 01/09/18 12:55 Urine,Clean Catch Urine Culture - Final Mixed Gram Positive Organism Complete Laboratory Tests Test 01/13/18 06:40 White Blood Count 16.0 K/UL (4.8-10.8) H Red Blood Count 4.42 M/UL (4.70-6.10) L Hemoglobin 12.8 G/DL (14.2-18.0) L Hematocrit 40.6 % (42.0-52.0) L Mean Corpuscular Volume 92 FL (80-99) Mean Corpuscular Hemoglobin 29.0 PG (27.0-31.0) Mean Corpuscular Hemoglobin Concent 31.6 G/DL (32.0-36.0) L Red Cell Distribution Width 15.9 % (11.6-14.8) H Platelet Count 153 K/UL (150-450) Mean Platelet Volume 11.6 FL (6.5-10.1) H Neutrophils (%) (Auto) 81.5 % (45.0-75.0) H Lymphocytes (%) (Auto) 6.8 % (20.0-45.0) L Monocytes (%) (Auto) 10.9 % (1.0-10.0) H Eosinophils (%) (Auto) 0.4 % (0.0-3.0) Basophils (%) (Auto) 0.5 % (0.0-2.0) Sodium Level 140 MMOL/L (136-145) Potassium Level 3.9 MMOL/L (3.5-5.1) Chloride Level 104 MMOL/L (98-107) Carbon Dioxide Level 25 MMOL/L (21-32) Anion Gap 12 mmol/L (5-15) Blood Urea Nitrogen 36 mg/dL (7-18) H Creatinine 2.8 MG/DL (0.55-1.30) H Estimat Glomerular Filtration Rate mL/min (>60) Glucose Level 149 MG/DL (74-106) H Calcium Level 9.3 MG/DL (8.5-10.1) Current Medications Medications (Trade) Dose Ordered Sig/Denny Route PRN Reason Start Time Stop Time Status Last Admin Dose Admin Acetaminophen (Tylenol) 650 mg Q4H PRN ORAL Mild Pain (Pain Scale 1-3) 01/08/18 20:00 01/31/18 11:59 Acetaminophen (Tylenol) 650 mg Q4H PRN ORAL T>100.5 01/08/18 20:00 01/31/18 11:59 Acetaminophen (Tylenol) 650 mg Q6H PRN ORAL Fever/Headache/Mild Pain 01/12/18 15:15 02/11/18 15:14 Acetaminophen/ Codeine Phosphate (Tylenol #3) 1 tab Q4H PRN ORAL Moderate Pain (Pain Scale 4-6) 01/12/18 15:15 01/19/18 15:14 Allopurinol (Allopurinol) 300 mg DAILY ORAL 01/09/18 09:00 02/03/18 08:59 01/13/18 08:42 Atorvastatin Calcium (Lipitor) 80 mg BEDTIME ORAL 01/08/18 21:00 02/03/18 20:59 01/12/18 20:35 Carvedilol (Coreg) 3.125 mg EVERY 12 HOURS ORAL 01/08/18 21:00 01/31/18 20:59 01/13/18 08:42 Cefazolin Sodium 1 gm/Dextrose 110 ml @ 220 mls/hr Q12HR IVP 01/12/18 21:00 01/19/18 20:59 01/13/18 10:03 Chlorhexidine Gluconate (Caitlin-Hex 2%) 1 applic DAILY@2000 TOPIC 01/08/18 20:00 02/01/18 19:59 01/12/18 20:36 Dextrose (Dextrose 50%) 25 ml STAT PRN IV Hypoglycemia 01/08/18 17:56 02/07/18 17:55 Dextrose (Dextrose 50%) 50 ml STAT PRN IV Hypoglycemia 01/08/18 17:56 02/07/18 17:55 Fluconazole/ Sodium Chloride 100 ml @ 100 mls/hr Q24H IV 01/13/18 09:00 01/18/18 23:59 01/13/18 10:34 Furosemide (Lasix) 40 mg DAILY IV 01/11/18 09:00 02/03/18 20:59 01/13/18 08:42 Heparin Sodium (Porcine) (Heparin 5000 units/ml) 5,000 units EVERY 12 HOURS SUBQ 01/08/18 21:00 02/03/18 20:59 01/13/18 08:47 Hydralazine HCl (Apresoline) 50 mg Q8HR ORAL 01/08/18 22:00 01/31/18 13:59 01/11/18 13:12 Insulin Aspart (NovoLOG) BEFORE MEALS AND HS SUBQ 01/08/18 21:00 02/03/18 16:29 01/13/18 11:34 Isosorbide Dinitrate (Isordil) 10 mg Q6HR ORAL 01/08/18 18:00 01/31/18 17:59 01/13/18 11:31 Olanzapine (ZyPREXA) 2.5 mg HSPRN PRN ORAL Agitation 01/08/18 17:57 02/07/18 17:56 Ondansetron HCl (Zofran) 4 mg Q6H PRN IVP Nausea & Vomiting 01/08/18 17:58 01/31/18 17:57 Ondansetron HCl (Zofran) 4 mg Q6H PRN IVP Nausea & Vomiting 01/12/18 15:15 02/11/18 15:14 Pantoprazole (Protonix) 40 mg EVERY 12 HOURS ORAL 01/08/18 21:00 01/31/18 20:59 01/13/18 08:42 Piperacillin Sod/ Tazobactam Sod 3.375 gm/Sodium Chloride 110 ml @ 27.5 mls/hr Q8HR@0200,1000,1800 IVPB 01/09/18 18:00 01/16/18 17:59 01/13/18 10:45 Tamsulosin HCl (Flomax) 0.4 mg Q12HR ORAL 01/08/18 21:00 02/07/18 20:59 01/13/18 08:42 Alkasspooles,Salam MD January 13, 2018 16:27
--- NOTE | 2018-01-13 17:33 | General Progress Note ---
Assessment/Plan Assessment/Plan -ativan prn -zyprexa prn encephalopathy resolved Subjective Date patient seen: January 13, 2018 Neurologic/Psychiatric: Reports: anxiety, depressed, emotional problems Allergies: Coded Allergies: No Known Allergies (Unverified , 01/09/14) Subjective the pt is doing well Objective Last 24 Hour Vital Signs Date Time Temp Pulse Resp B/P (MAP) Pulse Ox O2 Delivery O2 Flow Rate FiO2 01/13/18 17:12 108/60 01/13/18 16:00 90 01/13/18 16:00 97.7 88 20 108/60 95 Room Air 97.7 01/13/18 13:33 109/62 01/13/18 12:00 91 01/13/18 11:31 116/58 01/13/18 11:25 97.6 86 20 116/58 95 Nasal Cannula 3.0 97.6 01/13/18 08:46 207.7 82 22 98 01/13/18 08:42 93 114/63 01/13/18 08:00 93 01/13/18 08:00 97.7 93 20 114/63 98 Nasal Cannula 3.0 97.7 01/13/18 05:06 111/73 01/13/18 05:05 111/73 01/13/18 04:00 97.7 73 20 111/73 98 Nasal Cannula 3.0 97.7 01/13/18 04:00 95 01/13/18 00:00 97.8 88 18 125/74 98 Nasal Cannula 3.0 97.8 01/13/18 00:00 95 01/12/18 23:35 125/73 01/12/18 21:56 114/68 01/12/18 20:35 72 111/72 01/12/18 20:00 97 01/12/18 20:00 97.7 73 20 111/73 98 Nasal Cannula 3.0 97.7 Intake and Output 01/12/18 01/13/18 19:00 07:00 Intake Total 300.5 ml 330.0 ml Output Total 210 ml Balance 90.5 ml 330.0 ml IV Total 300.5 ml 330.0 ml Output Urine Total 200 ml Estimated Blood Loss 10 ml # Voids 2 2 # Bowel Movements 1 2 Laboratory Tests 01/13/18 06:40: White Blood Count 16.0H, Red Blood Count 4.42L, Hemoglobin 12.8L, Hematocrit 40.6L, Mean Corpuscular Volume 92, Mean Corpuscular Hemoglobin 29.0, Mean Corpuscular Hemoglobin Concent 31.6L, Red Cell Distribution Width 15.9H, Platelet Count 153, Mean Platelet Volume 11.6H, Neutrophils (%) (Auto) 81.5H, Lymphocytes (%) (Auto) 6.8L, Monocytes (%) (Auto) 10.9H, Eosinophils (%) (Auto) 0.4, Basophils (%) (Auto) 0.5, Sodium Level 140, Potassium Level 3.9, Chloride Level 104, Carbon Dioxide Level 25, Anion Gap 12, Blood Urea Nitrogen 36H, Creatinine 2.8H, Estimat Glomerular Filtration Rate , Glucose Level 149H, Calcium Level 9.3 Height (Feet): 5 Height (Inches): 10.00 Weight (Pounds): 158 Ralph Alva M.D. January 13, 2018 17:33
[2018-01-13 17:55] LABS: APPEARANCE,URINE SLIGHTLY CLOUDY; BILIRUBIN, URINE NEGATIVE (NEGATIVE); COLOR,URINE PALE YELLOW; GLUCOSE, URINE (UA) NEGATIVE (NEGATIVE); KETONES,URINE NEGATIVE (NEGATIVE); LEUKOCYTE ESTERASE ,URINE NEGATIVE (NEGATIVE); NITRITE,URINE NEGATIVE (NEGATIVE); PH,URINE 5 (4.5-8.0); PROTEIN,URINE 2+ (NEGATIVE); UROBILINOGEN,URINE NORMAL MG/DL (0.0-1.0)
--- NOTE | 2018-01-13 18:08 | Neurology Progress Note ---
Interim History Interim History Interim History Mr. Winslow feels better today. The AICD implant site is painful. The mind is clearer today. He is eating his dinner now. His left side is still significantly weak. He is able to see well on his left side. He is aware of his left sided deficits. He however is still neglecting the left side. He has noted no new neurologic symptoms. Review of Systems Neuro Review of Systems Benign. Objective Physical Exam Last Vital Signs Date Time Temp Pulse Resp B/P (MAP) Pulse Ox O2 Delivery O2 Flow Rate FiO2 01/13/18 17:12 108/60 01/13/18 16:00 90 01/13/18 16:00 97.7 20 95 Room Air 97.7 01/13/18 11:25 3.0 01/06/18 08:16 21 Laboratory Tests Test 01/13/18 06:40 01/13/18 16:40 White Blood Count 16.0 K/UL (4.8-10.8) H Red Blood Count 4.42 M/UL (4.70-6.10) L Hemoglobin 12.8 G/DL (14.2-18.0) L Hematocrit 40.6 % (42.0-52.0) L Mean Corpuscular Volume 92 FL (80-99) Mean Corpuscular Hemoglobin 29.0 PG (27.0-31.0) Mean Corpuscular Hemoglobin Concent 31.6 G/DL (32.0-36.0) L Red Cell Distribution Width 15.9 % (11.6-14.8) H Platelet Count 153 K/UL (150-450) Mean Platelet Volume 11.6 FL (6.5-10.1) H Neutrophils (%) (Auto) 81.5 % (45.0-75.0) H Lymphocytes (%) (Auto) 6.8 % (20.0-45.0) L Monocytes (%) (Auto) 10.9 % (1.0-10.0) H Eosinophils (%) (Auto) 0.4 % (0.0-3.0) Basophils (%) (Auto) 0.5 % (0.0-2.0) Sodium Level 140 MMOL/L (136-145) Potassium Level 3.9 MMOL/L (3.5-5.1) Chloride Level 104 MMOL/L (98-107) Carbon Dioxide Level 25 MMOL/L (21-32) Anion Gap 12 mmol/L (5-15) Blood Urea Nitrogen 36 mg/dL (7-18) H Creatinine 2.8 MG/DL (0.55-1.30) H Estimat Glomerular Filtration Rate mL/min (>60) Glucose Level 149 MG/DL (74-106) H Calcium Level 9.3 MG/DL (8.5-10.1) Urine Color Pending Urine Appearance Pending Urine pH Pending Urine Specific [place] Pending Urine Protein Pending Urine Glucose (UA) Pending Urine Ketones Pending Urine Occult Blood Pending Urine Nitrite Pending Urine Bilirubin Pending Urine Urobilinogen Pending Urine Leukocyte Esterase Pending Neurologic Exam Objective PHYSICAL EXAMINATION: GENERAL: He is a well-developed relatively well-nourished black gentleman, lying in bed, in no acute distress. HEAD: Normocephalic and atraumatic. NECK: No neck rigidity was observed. EENT: Examination benign. NEUROLOGICAL EXAMINATION: MENTAL STATUS EXAMINATION: He was awake and alert. He was oriented to person, place, and time except for the exact date. He was able to recall 3/3 words immediately after 1 minute and after 3 minutes on the second trial. He was able to remember presidents, Trump through [employer] with hints. His mathematical skills were fairly good. His visuospatial function was preserved. SPEECH: He had a mild dysarthria. LANGUAGE: He had no aphasia. CRANIAL NERVES EXAMINATION: II: The visual field were full on confrontation testing. III, IV & : External ocular movements were full and the pupils 3 mm in diameter, equal, round, regular, and reactive to light. V: He had normal facial sensations and the temporales, masseters, and pterygoids functioned normally. VII: He had left seventh central facial paresis. VIII: He was able to hear well bilaterally and had no nystagmus. IX: The palate moved symmetrically on phonation. X: He had no hoarseness of voice. XI: The sternocleidomastoids and trapezii functioned normally. XII: The tongue was in the midline without any fasciculations or atrophy. MOTOR SYSTEM: The tone was normal on the right side and diminished on the left side. Examination of muscle mass revealed no focal wasting. Examination of power revealed G 5/5 power in the right upper extremity. In the right lower extremity he also had G 5/5 power except for G 5-/5 power in the iliopsoas. On the left side, he had G 2/5 in the deltoid, G 0/5 in the biceps, G 0/5 in the triceps, G 0/5 in the wrist and fingers, G 3/5 in the hip rotators, G 4/5 in the quadriceps, hamstrings, ankle plantar flexors and toe flexors, and G 3/5 in the ankle dorsiflexors and toe extensors. SENSORY EXAMINATION: He tended to neglect his left side minimally. He made errors on testing for pinprick and light touch over his entire left body. In addition, he had normal graphesthesia on the right side and agraphesthesia on the left side. REFLEXES: 1++ on the right and 0 on the left at the biceps, triceps, and brachioradialis, 1++ on the right and 2++ on the left at the knees. 0 at both ankles. The plantar response was flexor on the right and extensor on the left. COORDINATION: He performed well on [id number] testing on the right side. He was unable to perform on the left side. He was unable to perform [id number] testing bilaterally. STANCE & GAIT: Could not be tested. Impression/Recommendations Diagnostic Impression 1. Mr Agnes Winslow is a 77-year-old, right-handed, black gentleman, who does have a past history of hypertension, chronic kidney disease, cardiomyopathy, severe congestive heart failure with an ejection fraction at 15% in the near past and asthma. On 01/01/2018, he suddenly developed left-sided weakness. He was brought into the [facility] emergency room, diagnosed with a left brain stroke, and given tPA. Following that he became significantly weaker on his left side, has developed left-sided neglect, and some visual problems on that side. 2. He feels better today. The AICD implant site is painful. The mind is clearer today. He is eating his dinner now. His left side is still significantly weak. He is able to see well on his left side. He is aware of his left sided deficits. He however is still neglecting the left side. He has noted no new neurologic symptoms. 3. On neurological examination at this time, he is midly disoriented, has mild problems with memory, has a mild dysarthria, he has a left seventh central facial paresis, a significant left hemiparesis, right proximal lower extremity weakness, a left hemisensory deficit and agraphesthesia, loss of deep tendon reflexes in the upper extremities with a brisk left knee jerk and extensor plantar response on the left side. 4. The CT scan of the brain without contrast performed on 01/01/2018 was read as being normal. 5. An MRI scan of the brain performed on 01/01/2018 revealed "an acute small area of right parietal infarct, but no other pathology". 6. The repeat CT of the brain done on 01/03/18 revealed an acute infarct in the right frontal and temporal lobes. No associated acute hemorrhage. 7. The carotid duplex scan was reported as being within normal limits. 8. 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 His neurologic function was improving. However his weakness got worse following the AICD implant and has improved minimally since then but is still not at his pre-AICD baseline. Recommendations 1. Continue present management. 2. Physical, occupational and speech and language therapy. 3. Consider acute rehabilitation. 4. ASA 81 mg q day. 7. Continue Lipitor with LDL goal of <70. _ Arun Lara M.D., M.S.P.H. ARUN LARA January 13, 2018 18:08
[2018-01-13 20:00] VITALS: BP 121/65
--- NOTE | 2018-01-13 20:00 | General Progress Note ---
Assessment/Plan Problem List: (1) CKD (chronic kidney disease) ICD Codes: N18.9 - CKD (chronic kidney disease) SNOMED: 696612270 Qualifiers: Qualified Codes: N18.9 - Chronic kidney disease, unspecified (2) HTN (hypertension) ICD Codes: I10 - HTN (hypertension) SNOMED: 93114623 (3) CHF (congestive heart failure) ICD Codes: I50.9 - CHF (congestive heart failure) SNOMED: 76285186 (4) Respiratory distress ICD Codes: R06.00 - Dyspnea, unspecified SNOMED: 463147596 (5) Dyspnea ICD Codes: R06.00 - Dyspnea, unspecified SNOMED: 987744631 (6) Asthma exacerbation ICD Codes: J45.901 - Unspecified asthma with (acute) exacerbation SNOMED: 377227531 (7) FIONA (acute kidney injury) ICD Codes: N17.9 - Acute kidney failure, unspecified SNOMED: 98501790 (8) CHF exacerbation ICD Codes: I50.9 - Heart failure, unspecified SNOMED: 52073068 Qualifiers: Qualified Codes: I50.9 - Heart failure, unspecified (9) CVA (cerebral vascular accident) ICD Codes: I63.9 - Cerebral infarction, unspecified SNOMED: 502485428 Qualifiers: Qualified Codes: I63.9 - Cerebral infarction, unspecified (10) Peripheral edema ICD Codes: R60.9 - Edema, unspecified SNOMED: 364867456 (11) Cardiomyopathy ICD Codes: I42.9 - Cardiomyopathy SNOMED: 36578569 (12) Malnutrition ICD Codes: E46 - Malnutrition SNOMED: 7424072 (13) Hypokalemia ICD Codes: E87.6 - Hypokalemia SNOMED: 70135527 (14) Prediabetes ICD Codes: R73.03 - Prediabetes SNOMED: 696101547 (15) HLD (hyperlipidemia) ICD Codes: E78.5 - Hyperlipidemia, unspecified SNOMED: 96698886 (16) Leukocytosis ICD Codes: D72.829 - Elevated white blood cell count, unspecified SNOMED: 580307145, 866970049 Status: stable, progressing Assessment/Plan #acute right parietal infarct - Neurology consulted, appreciate rec's - No need for transfer to stroke center at this time per neurology - NIH stroke scale last night was 2 prior to TPA. Repeat NIH stroke scale is 5 - s/p tPA given at 0300 on 01/01 - CT head on 01/01 at 0100 was negative. - MRI brain showing acute small right parietal infarct with no hemorrhage, midline shift, or mass effect - continue permissive hypertension to systolic 160-180s x 24 hours - MRA brain and neck without contrast showing attenuated appearance of the distal right middle cerebral artery likely due to technical issues. Also with short segment stenotic appearance of the right proximal ICA, cannot exclude high -grade stenosis. - carotid U/S negative - repeat CT with no bleed, showing acute infarct. also with some corresponding edema without significant mass effect --> start HSQ - ECHO with doppler showing 25-30% EF, pulmonary hypertension, and left ventricular hypokinesis - bilateral venous duplex negative - check lipid panel and A1c - ST/PT/OT eval - Passed swallow eval, on pureed. video swallow study done, f/u results - neurochecks q4hr - LDL 83. Start lipitor 80mg qhs - will start ASA 81mg after defibb placement #Acute asthma exacerbation - prednisone 40mg PO qd x 5 days (D5/5). discontinued as patient's wheezing resolved - duonebs ATC q6hr - ABGs #Sepsis, unknown etiology - ID consulted, appreciate rec's - continue IV zosyn and diflucan per ID - CXR negative. Repeat CXR negative - trend CBC - WBC up to [address] a/p showing questionable hematoma. C. diff negative. f/u urine cx. CXR negative. Blood cx NGTD. #Acute on chronic systolic CHF / severe cardiomyopathy - cardiology consulted, appreciate rec's - strict I&O - 1.5 L fluid restriction - lasix 80mg IV BID --> lasix 60 IV BID --> lasix 40mg IV BID - permissive HTN with systolic 160-180s given acute CVA till 01/02 - dobutamine gtt titrated down to 1 mcg/min - s/p PICC line 01/03 - EF 25-30% - s/p biotronic dual chamber ICD implant on 01/12/18. Interrogated and showed normal function. #FIONA due to cardiorenal syndrome - nephrology consulted, appreciate rec's - trend Cr - check urine lytes - avoid IVF given CHF exacerbation #Hypokalemia - replete electrolytes prn. monitor BMP and Mg #HLD - start lipitor 80mg #Prediabetes - A1c 6.2 - will start MURIEL for now - will discharge patient on glipizide START ASA 81MG FOR PATIENT UPON DISCHARGE DC PLANNING TO [facility] IN AM IF CLEARED PER ID. DVT ppx: HSQ Discussed case in detail with nursing staff, case management, cardiology, nephrology, neurology, ID, patient, and family. Case d/w Dr. Holliday who agrees to the plan above. Disposition: [facility] (patient accepted to facility, family/patient agreeable) I spent a total of 40 minutes on this patient's case with greater than 50% spent on care and coordination of the patient. Subjective Date patient seen: January 13, 2018 Time patient seen: 11:00 Allergies: Coded Allergies: No Known Allergies (Unverified , 01/09/14) Subjective - S/P Biotronic dual chamber ICD implant yesterday. Interrogated and showed Nl Fx. - doing well. AF, HDS - WBC slightly uptrended postoperatively Objective Last 24 Hour Vital Signs Date Time Temp Pulse Resp B/P (MAP) Pulse Ox O2 Delivery O2 Flow Rate FiO2 01/13/18 17:12 108/60 01/13/18 16:00 90 01/13/18 16:00 97.7 88 20 108/60 95 Room Air 97.7 01/13/18 13:33 109/62 01/13/18 12:00 91 01/13/18 11:31 116/58 01/13/18 11:25 97.6 86 20 116/58 95 Nasal Cannula 3.0 97.6 01/13/18 08:46 207.7 82 22 98 01/13/18 08:42 93 114/63 01/13/18 08:00 93 01/13/18 08:00 97.7 93 20 114/63 98 Nasal Cannula 3.0 97.7 01/13/18 05:06 111/73 01/13/18 05:05 111/73 01/13/18 04:00 97.7 73 20 111/73 98 Nasal Cannula 3.0 97.7 01/13/18 04:00 95 01/13/18 00:00 97.8 88 18 125/74 98 Nasal Cannula 3.0 97.8 01/13/18 00:00 95 01/12/18 23:35 125/73 01/12/18 21:56 114/68 01/12/18 20:35 72 111/72 01/12/18 20:00 97 01/12/18 20:00 97.7 73 20 111/73 98 Nasal Cannula 3.0 97.7 Intake and Output 01/12/18 01/13/18 19:00 07:00 Intake Total 300.5 ml 330.0 ml Output Total 210 ml Balance 90.5 ml 330.0 ml IV Total 300.5 ml 330.0 ml Output Urine Total 200 ml Estimated Blood Loss 10 ml # Voids 2 2 # Bowel Movements 1 2 Laboratory Tests 01/13/18 06:40: White Blood Count 16.0H, Red Blood Count 4.42L, Hemoglobin 12.8L, Hematocrit 40.6L, Mean Corpuscular Volume 92, Mean Corpuscular Hemoglobin 29.0, Mean Corpuscular Hemoglobin Concent 31.6L, Red Cell Distribution Width 15.9H, Platelet Count 153, Mean Platelet Volume 11.6H, Neutrophils (%) (Auto) 81.5H, Lymphocytes (%) (Auto) 6.8L, Monocytes (%) (Auto) 10.9H, Eosinophils (%) (Auto) 0.4, Basophils (%) (Auto) 0.5, Sodium Level 140, Potassium Level 3.9, Chloride Level 104, Carbon Dioxide Level 25, Anion Gap 12, Blood Urea Nitrogen 36H, Creatinine 2.8H, Estimat Glomerular Filtration Rate , Glucose Level 149H, Calcium Level 9.3 01/13/18 16:40: Urine Color Pale yellow, Urine Appearance Slightly cloudy, Urine pH 5, Urine Specific [place] 1.015, Urine Protein 2+H, Urine Glucose (UA) Negative, Urine Ketones Negative, Urine Occult Blood 2+H, Urine Nitrite Negative, Urine Bilirubin Negative, Urine Urobilinogen Normal, Urine Leukocyte Esterase Negative , Urine RBC 0-2H, Urine WBC 0-2, Urine Squamous Epithelial Cells ModerateH, Urine Amorphous Sediment FewH, Urine Bacteria ModerateH Height (Feet): 5 Height (Inches): 10.00 Weight (Pounds): 158 General Appearance: no apparent distress, alert EENT: PERRL/EOMI, normal ENT inspection Neck: non-tender, normal alignment, supple Cardiovascular: normal peripheral pulses, normal rate, regular rhythm, pacemaker/AICD Respiratory/Chest: chest wall non-tender, lungs clear, normal breath sounds Abdomen: normal bowel sounds, non tender, soft Extremities: non-tender 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
[2018-01-13] MEDS: Dyna-Hex 2% Top Sol 2oz TOPIC SCH (21:52)
[2018-01-13] MEDS: Atorvastatin 80mg tab ORAL SCH (21:53)
[2018-01-14] VITALS: BP 128/78
[2018-01-14] MEDS: Zosyn 3.375gm q8h **Extended infusion IVPB SCH ×4 (01:11→09:55)
[2018-01-14 04:00] VITALS: BP 130/59
[2018-01-14] MEDS: HydrALAZINE 50mg tab ORAL SCH ×3 (06:29→22:00)
[2018-01-14] MEDS: NovoLOG Insulin Flexpen SUBQ SCH ×4 (06:33→21:15)
[2018-01-14 08:00] VITALS: BP 140/78
[2018-01-14] MEDS: ceFAZolin sod 1 GM in D5W 110 ML IVP SCH (08:17)
--- NOTE | 2018-01-14 08:19 | General Progress Note ---
Assessment/Plan Assessment/Plan #. Thrombocytopenia, potentially secondary to underlying medications versus infection. Has been seen by Cardiology Service, meds have been reviewed. Currently in the 100-150k range ---> hepatitis and hiv are negative, CT of the abdomen/pelvis is negative for cirrhosis or splenomegaly ---> transfuse if plt count ever <20k ---> no transfusion required #. Leukocytosis. Likely related to underlying ID issue. ? sepsis, ? reactive to cva, valeria, aspiration risk, abdomen benign, ? uti, ua with 1 + le and moderate bacteria but urine culture mixed, continues to persist --> Continue antibiotics as per primary team and Infectious Disease prn --> abx as per ID, antibiotics/diflucan on board #. Anemia due to underlying chronic disease. Continue to closely monitor. significantly improved --> at this time, hold off on extensive workup unless hgb less than 10 #. Acute cerebrovascular accident, noted on MRI. Further management per neurology #. Shortness of breath seen by pulm --> appreciate recs #. Sepsis - ID service is following --> appreciate recs #. Hypertension. Elevated blood pressure. --> currently controlled --> further management per cards Subjective Constitutional: Denies: no symptoms, chills, diaphoresis, fever, malaise, weakness, other HEENT: Denies: no symptoms, eye pain, blurred vision, tearing, double vision, ear pain, ear discharge, nose pain, nose congestion, throat pain, throat swelling, mouth pain, mouth swelling, other Cardiovascular: Denies: no symptoms, chest pain, edema, irregular heart rate, lightheadedness, palpitations, syncope, other Respiratory: Denies: no symptoms, cough, orthopnea, shortness of breath, SOB with excertion, SOB at rest, sputum, stridor, wheezing, other Genitourinary: Denies: no symptoms, burning, discharge, frequency, flank pain, hematuria, incontinence, pain, urgency, other Neurologic/Psychiatric: Denies: no symptoms, anxiety, depressed, emotional problems, headache, numbness, paresthesia, pre-existing deficit, seizure, tingling, tremors, weakness, other Endocrine: Denies: no symptoms, excessive sweating, flushing, intolerance to cold, intolerance to heat, increased hunger, increased thirst, increased urine, unexplained weight gain, unexplained weight loss, other Hematologic/Lymphatic: Denies: no symptoms, anemia, easy bleeding, easy bruising, other Allergies: Coded Allergies: No Known Allergies (Unverified , 01/09/14) Subjective no events overnight, does not want to be examined this am Objective Last 24 Hour Vital Signs Date Time Temp Pulse Resp B/P (MAP) Pulse Ox O2 Delivery O2 Flow Rate FiO2 01/14/18 06:29 130/59 01/14/18 06:29 130/59 01/14/18 04:00 85 01/14/18 04:00 99.2 88 20 130/59 97 Room Air 99.2 01/14/18 00:00 97.8 93 20 128/78 97 Room Air 97.8 01/14/18 00:00 91 01/13/18 23:26 128/78 01/13/18 22:00 121/65 01/13/18 21:53 96 121/65 01/13/18 20:00 97.7 96 20 121/65 96 Room Air 97.7 01/13/18 20:00 94 01/13/18 17:12 108/60 01/13/18 16:00 90 01/13/18 16:00 97.7 88 20 108/60 95 Room Air 97.7 01/13/18 13:33 109/62 01/13/18 12:00 91 01/13/18 11:31 116/58 01/13/18 11:25 97.6 86 20 116/58 95 Nasal Cannula 3.0 97.6 01/13/18 08:46 207.7 82 22 98 01/13/18 08:42 93 114/63 Intake and Output 01/13/18 01/14/18 19:00 07:00 Intake Total 707.5 ml 160.5 ml Output Total 400 ml Balance 707.5 ml -239.5 ml Intake Oral 360 ml IV Total 347.5 ml 160.5 ml Output Urine Total 400 ml # Voids 3 2 Laboratory Tests 01/13/18 16:40: Urine Color Pale yellow, Urine Appearance Slightly cloudy, Urine pH 5, Urine Specific [place] 1.015, Urine Protein 2+H, Urine Glucose (UA) Negative, Urine Ketones Negative, Urine Occult Blood 2+H, Urine Nitrite Negative, Urine Bilirubin Negative, Urine Urobilinogen Normal, Urine Leukocyte Esterase Negative , Urine RBC 0-2H, Urine WBC 0-2, Urine Squamous Epithelial Cells ModerateH, Urine Amorphous Sediment FewH, Urine Bacteria ModerateH Height (Feet): 5 Height (Inches): 10.00 Weight (Pounds): 158 General Appearance: no apparent distress EENT: TMs normal Neck: supple Cardiovascular: regular rhythm Respiratory/Chest: normal breath sounds Abdomen: non tender Extremities: non-tender Edema: 1+ Leg (L), 1+ Leg (R) Edema: mild edema Neurologic: alert Skin: warm/dry Mahendra Marinelli MD Jan 14, 2018 08:19
[2018-01-14] MEDS: Tamsulosin 0.4mg cap ORAL SCH (08:37)
[2018-01-14] MEDS: Heparin 5000 units/ml inj SUBQ SCH ×2 (08:41→21:00)
[2018-01-14 09:38] LABS: ANION GAP 12 mmol/L (5-15); BLOOD UREA NITROGEN 35 mg/dL (7-18); CARBON DIOXIDE 26 MMOL/L (21-32); CHLORIDE 105 MMOL/L (98-107); CREATININE 2.9 MG/DL (0.55-1.30); POTASSIUM 3.2 MMOL/L (3.5-5.1); SODIUM 143 MMOL/L (136-145)
[2018-01-14 09:41] LABS: BASOPHILS % (AUTO) 0.3 % (0.0-2.0); EOSINOPHILS % (AUTO) 0.6 % (0.0-3.0); HEMATOCRIT 34.1 % (42.0-52.0); LYMPHOCYTES % (AUTO) 7.2 % (20.0-45.0); MEAN CORPUSCULAR VOLUME 91 FL (80-99); MONOCYTES % (AUTO) 9.7 % (1.0-10.0); NEUTROPHILS % (AUTO) 82.3 % (45.0-75.0); PLATELET COUNT 139 K/UL (150-450); RED BLOOD COUNT 3.75 M/UL (4.70-6.10); RED CELL DISTRIBUTION WIDTH 15.8 % (11.6-14.8); WHITE BLOOD COUNT 17.9 K/UL (4.8-10.8)
[2018-01-14 11:12] LABS: ALANINE AMINOTRANSFERASE 25 U/L (12-78); ALBUMIN 2.3 G/DL (3.4-5.0); ALKALINE PHOSPHATASE 48 U/L (46-116); ASPARTATE AMINO TRANSFERASE 40 U/L (15-37); BILIRUBIN,DIRECT 0.3 MG/DL (0.0-0.3); BILIRUBIN,TOTAL 0.8 MG/DL (0.2-1.0); GAMMA GLUTAMYL TRANSPEPTIDASE 80 U/L (5-85); PHOSPHORUS 4.1 MG/DL (2.5-4.9)
--- NOTE | 2018-01-14 11:44 | General Progress Note ---
Assessment/Plan Assessment/Plan -ativan prn -zyprexa prn encephalopathy resolved Subjective Date patient seen: Jan 14, 2018 Neurologic/Psychiatric: Reports: anxiety, depressed Allergies: Coded Allergies: No Known Allergies (Unverified , 01/09/14) Subjective the pt is doing well Objective Last 24 Hour Vital Signs Date Time Temp Pulse Resp B/P (MAP) Pulse Ox O2 Delivery O2 Flow Rate FiO2 01/14/18 11:42 133/71 01/14/18 08:37 90 140/78 01/14/18 08:00 97.4 90 20 140/78 95 Room Air 97.4 01/14/18 08:00 92 01/14/18 06:29 130/59 01/14/18 06:29 130/59 01/14/18 04:00 85 01/14/18 04:00 99.2 88 20 130/59 97 Room Air 99.2 01/14/18 00:00 97.8 93 20 128/78 97 Room Air 97.8 01/14/18 00:00 91 01/13/18 23:26 128/78 01/13/18 22:00 121/65 01/13/18 21:53 96 121/65 01/13/18 20:00 97.7 96 20 121/65 96 Room Air 97.7 01/13/18 20:00 94 01/13/18 17:12 108/60 01/13/18 16:00 90 01/13/18 16:00 97.7 88 20 108/60 95 Room Air 97.7 01/13/18 13:33 109/62 01/13/18 12:00 91 Intake and Output 01/13/18 01/14/18 19:00 07:00 Intake Total 707.5 ml 160.5 ml Output Total 400 ml Balance 707.5 ml -239.5 ml Intake Oral 360 ml IV Total 347.5 ml 160.5 ml Output Urine Total 400 ml # Voids 3 2 Laboratory Tests 01/13/18 16:40: Urine Color Pale yellow, Urine Appearance Slightly cloudy, Urine pH 5, Urine Specific [place] 1.015, Urine Protein 2+H, Urine Glucose (UA) Negative, Urine Ketones Negative, Urine Occult Blood 2+H, Urine Nitrite Negative, Urine Bilirubin Negative, Urine Urobilinogen Normal, Urine Leukocyte Esterase Negative , Urine RBC 0-2H, Urine WBC 0-2, Urine Squamous Epithelial Cells ModerateH, Urine Amorphous Sediment FewH, Urine Bacteria ModerateH 01/14/18 06:30: White Blood Count 17.9H, Red Blood Count 3.75L, Hemoglobin 11.0L, Hematocrit 34.1L, Mean Corpuscular Volume 91, Mean Corpuscular Hemoglobin 29.3, Mean Corpuscular Hemoglobin Concent 32.2, Red Cell Distribution Width 15.8H, Platelet Count 139L, Mean Platelet Volume 10.6H, Neutrophils (%) (Auto) 82.3H, Lymphocytes (%) (Auto) 7.2L, Monocytes (%) (Auto) 9.7, Eosinophils (%) (Auto) 0.6, Basophils (%) (Auto) 0.3, Sodium Level 143, Potassium Level 3.2L, Chloride Level 105, Carbon Dioxide Level 26, Anion Gap 12, Blood Urea Nitrogen 35H, Creatinine 2.9H, Estimat Glomerular Filtration Rate , Glucose Level 100, Calcium Level 9.0, Phosphorus Level 4.1, Magnesium Level 1.9, Total Bilirubin 0.8, Direct Bilirubin 0.3, Gamma Glutamyl Transpeptidase 80, Aspartate Amino Transf (AST/SGOT) 40H, Alanine Aminotransferase (ALT/SGPT) 25, Alkaline Phosphatase 48, C-Reactive Protein, Quantitative 13.8H, Total Protein 6.8, Albumin 2.3L Height (Feet): 5 Height (Inches): 10.00 Weight (Pounds): 158 Ralph Alva M.D. Jan 14, 2018 11:44
[2018-01-14 12:00] VITALS: BP 133/71
--- NOTE | 2018-01-14 13:32 | Nephrology Progress Note ---
Assessment/Plan Problem List: (1) CKD (chronic kidney disease) (2) CHF (congestive heart failure) (3) Cardiomyopathy (4) Proteinuria Assessment Cr 2.9 WBCs elevated CKD- chronic systolic heart failure Right heart failuer Edema due to above and possible venous insuf Non-ischemic cardiomyopathy no cad by cath 2016 History of DVT pulmonary HTN h/o Thrombocytopenia HTN Proteinuria previous echo: Severe global left ventricular hypokinesis with septal thinning. Left ventricular ejection fraction estimated to be 10-15 %. Plan Per ID- mag and K supplement as needed Optimize cardiac status, monitor renal parameters Avoid nephrotoxics per orders Subjective ROS Limited/Unobtainable: No Constitutional: Reports: malaise, weakness Objective Objective Last 24 Hour Vital Signs Date Time Temp Pulse Resp B/P (MAP) Pulse Ox O2 Delivery O2 Flow Rate FiO2 01/14/18 12:00 97.4 84 20 133/71 94 Room Air 97.4 01/14/18 12:00 89 01/14/18 11:42 133/71 01/14/18 08:37 90 140/78 01/14/18 08:00 97.4 90 20 140/78 95 Room Air 97.4 01/14/18 08:00 92 01/14/18 06:29 130/59 01/14/18 06:29 130/59 01/14/18 04:00 85 01/14/18 04:00 99.2 88 20 130/59 97 Room Air 99.2 01/14/18 00:00 97.8 93 20 128/78 97 Room Air 97.8 01/14/18 00:00 91 01/13/18 23:26 128/78 01/13/18 22:00 121/65 01/13/18 21:53 96 121/65 01/13/18 20:00 97.7 96 20 121/65 96 Room Air 97.7 01/13/18 20:00 94 01/13/18 17:12 108/60 01/13/18 16:00 90 01/13/18 16:00 97.7 88 20 108/60 95 Room Air 97.7 01/13/18 13:33 109/62 Intake and Output 01/13/18 01/14/18 19:00 07:00 Intake Total 707.5 ml 160.5 ml Output Total 400 ml Balance 707.5 ml -239.5 ml Intake Oral 360 ml IV Total 347.5 ml 160.5 ml Output Urine Total 400 ml # Voids 3 2 Laboratory Tests 01/13/18 16:40: Urine Color Pale yellow, Urine Appearance Slightly cloudy, Urine pH 5, Urine Specific [place] 1.015, Urine Protein 2+H, Urine Glucose (UA) Negative, Urine Ketones Negative, Urine Occult Blood 2+H, Urine Nitrite Negative, Urine Bilirubin Negative, Urine Urobilinogen Normal, Urine Leukocyte Esterase Negative , Urine RBC 0-2H, Urine WBC 0-2, Urine Squamous Epithelial Cells ModerateH, Urine Amorphous Sediment FewH, Urine Bacteria ModerateH 01/14/18 06:30: White Blood Count 17.9H, Red Blood Count 3.75L, Hemoglobin 11.0L, Hematocrit 34.1L, Mean Corpuscular Volume 91, Mean Corpuscular Hemoglobin 29.3, Mean Corpuscular Hemoglobin Concent 32.2, Red Cell Distribution Width 15.8H, Platelet Count 139L, Mean Platelet Volume 10.6H, Neutrophils (%) (Auto) 82.3H, Lymphocytes (%) (Auto) 7.2L, Monocytes (%) (Auto) 9.7, Eosinophils (%) (Auto) 0.6, Basophils (%) (Auto) 0.3, Sodium Level 143, Potassium Level 3.2L, Chloride Level 105, Carbon Dioxide Level 26, Anion Gap 12, Blood Urea Nitrogen 35H, Creatinine 2.9H, Estimat Glomerular Filtration Rate , Glucose Level 100, Calcium Level 9.0, Phosphorus Level 4.1, Magnesium Level 1.9, Total Bilirubin 0.8, Direct Bilirubin 0.3, Gamma Glutamyl Transpeptidase 80, Aspartate Amino Transf (AST/SGOT) 40H, Alanine Aminotransferase (ALT/SGPT) 25, Alkaline Phosphatase 48, C-Reactive Protein, Quantitative 13.8H, Total Protein 6.8, Albumin 2.3L Height (Feet): 5 Height (Inches): 10.00 Weight (Pounds): 158 General Appearance: no apparent distress Cardiovascular: tachycardia Respiratory/Chest: decreased breath sounds Abdomen: soft Objective no other change BHARATHI LOVE Jan 14, 2018 13:32
--- NOTE | 2018-01-14 13:39 | Cardiac Electrophysiology PN ---
Assessment/Plan Assessment/Plan 1. Exacerbation of congestive heart failure due to severe nonischemic dilated cardiomyopathy, ejection fraction of 15% to 20%. Change Lasix to 40 mg po bid. Coreg 3.125 mg b.i.d., hydralazine 50 mg tid , Isordil 10 mg every 6 hours 2. S/P [employer]ot[employer] dual chamber ICD implant 01/12/18. Interrogated and showed Nl Fx. 2. Renal failure. Mildly improved from 3.7 to 2.8. F/U by Dr. Dennis 3. Elevated liver function tests likely due to right heart failure and hepatic congestion. 4. Elevated white count On Abx per Dr Miryam NIÑO RN and Shira Subjective Subjective No events. No arrhythmias except occasional PVCs. at bedside Objective Last 24 Hour Vital Signs Date Time Temp Pulse Resp B/P (MAP) Pulse Ox O2 Delivery O2 Flow Rate FiO2 01/14/18 12:00 97.4 84 20 133/71 94 Room Air 97.4 01/14/18 12:00 89 01/14/18 11:42 133/71 01/14/18 08:37 90 140/78 01/14/18 08:00 97.4 90 20 140/78 95 Room Air 97.4 01/14/18 08:00 92 01/14/18 06:29 130/59 01/14/18 06:29 130/59 01/14/18 04:00 85 01/14/18 04:00 99.2 88 20 130/59 97 Room Air 99.2 01/14/18 00:00 97.8 93 20 128/78 97 Room Air 97.8 01/14/18 00:00 91 01/13/18 23:26 128/78 01/13/18 22:00 121/65 01/13/18 21:53 96 121/65 01/13/18 20:00 97.7 96 20 121/65 96 Room Air 97.7 01/13/18 20:00 94 01/13/18 17:12 108/60 01/13/18 16:00 90 01/13/18 16:00 97.7 88 20 108/60 95 Room Air 97.7 Intake and Output 01/13/18 01/14/18 19:00 07:00 Intake Total 707.5 ml 160.5 ml Output Total 400 ml Balance 707.5 ml -239.5 ml Intake Oral 360 ml IV Total 347.5 ml 160.5 ml Output Urine Total 400 ml # Voids 3 2 Laboratory Tests Test 01/13/18 16:40 01/14/18 06:30 Urine Color Pale yellow Urine Appearance Slightly cloudy Urine pH 5 (4.5-8.0) Urine Specific [place] 1.015 (1.005-1.035) Urine Protein 2+ (NEGATIVE) H Urine Glucose (UA) Negative (NEGATIVE) Urine Ketones Negative (NEGATIVE) Urine Occult Blood 2+ (NEGATIVE) H Urine Nitrite Negative (NEGATIVE) Urine Bilirubin Negative (NEGATIVE) Urine Urobilinogen Normal MG/DL (0.0-1.0) Urine Leukocyte Esterase Negative (NEGATIVE) Urine RBC 0-2 /HPF (0 - 0) H Urine WBC 0-2 /HPF (0 - 0) Urine Squamous Epithelial Cells Moderate /LPF (NONE/OCC) H Urine Amorphous Sediment Few /LPF (NONE) H Urine Bacteria Moderate /HPF (NONE) H White Blood Count 17.9 K/UL (4.8-10.8) H Red Blood Count 3.75 M/UL (4.70-6.10) L Hemoglobin 11.0 G/DL (14.2-18.0) L Hematocrit 34.1 % (42.0-52.0) L Mean Corpuscular Volume 91 FL (80-99) Mean Corpuscular Hemoglobin 29.3 PG (27.0-31.0) Mean Corpuscular Hemoglobin Concent 32.2 G/DL (32.0-36.0) Red Cell Distribution Width 15.8 % (11.6-14.8) H Platelet Count 139 K/UL (150-450) L Mean Platelet Volume 10.6 FL (6.5-10.1) H Neutrophils (%) (Auto) 82.3 % (45.0-75.0) H Lymphocytes (%) (Auto) 7.2 % (20.0-45.0) L Monocytes (%) (Auto) 9.7 % (1.0-10.0) Eosinophils (%) (Auto) 0.6 % (0.0-3.0) Basophils (%) (Auto) 0.3 % (0.0-2.0) Sodium Level 143 MMOL/L (136-145) Potassium Level 3.2 MMOL/L (3.5-5.1) L Chloride Level 105 MMOL/L (98-107) Carbon Dioxide Level 26 MMOL/L (21-32) Anion Gap 12 mmol/L (5-15) Blood Urea Nitrogen 35 mg/dL (7-18) H Creatinine 2.9 MG/DL (0.55-1.30) H Estimat Glomerular Filtration Rate mL/min (>60) Glucose Level 100 MG/DL (74-106) Calcium Level 9.0 MG/DL (8.5-10.1) Phosphorus Level 4.1 MG/DL (2.5-4.9) Magnesium Level 1.9 MG/DL (1.8-2.4) Total Bilirubin 0.8 MG/DL (0.2-1.0) Direct Bilirubin 0.3 MG/DL (0.0-0.3) Gamma Glutamyl Transpeptidase 80 U/L (5-85) Aspartate Amino Transf (AST/SGOT) 40 U/L (15-37) H Alanine Aminotransferase (ALT/SGPT) 25 U/L (12-78) Alkaline Phosphatase 48 U/L (46-116) C-Reactive Protein, Quantitative 13.8 mg/dL (0.00-0.90) H Total Protein 6.8 G/DL (6.4-8.2) Albumin 2.3 G/DL (3.4-5.0) L Microbiology Date/Time Source Procedure Growth Status 01/13/18 16:40 Urine,Clean Catch Urine Culture - Preliminary NO GROWTH Resulted Objective HEAD AND NECK: Mild JVD. LUNGS: Decreased breath sounds. CARDIOVASCULAR: Regular S1 and S2 with no gallop or murmur. ICD left subclavian ABDOMEN: Soft. EXTREMITIES: 2+ pitting edema. Andre Howard MD Jan 14, 2018 13:39
--- NOTE | 2018-01-14 15:52 | Neurology Progress Note ---
Interim History Interim History Interim History Mr. Winslow feels better today. The AICD implant site is less painful. The mind is clearer. He is eating his dinner now. His left side is still significantly weak. He is able to see well on his left side. He is aware of his left sided deficits. He however is still neglecting the left side. He has noted no new neurologic symptoms. Review of Systems Neuro Review of Systems Benign. Objective Physical Exam Last Vital Signs Date Time Temp Pulse Resp B/P (MAP) Pulse Ox O2 Delivery O2 Flow Rate FiO2 01/14/18 13:48 100/54 01/14/18 12:00 97.4 84 20 94 Room Air 97.4 01/13/18 11:25 3.0 01/06/18 08:16 21 Laboratory Tests Test 01/13/18 16:40 01/14/18 06:30 Urine Color Pale yellow Urine Appearance Slightly cloudy Urine pH 5 (4.5-8.0) Urine Specific [place] 1.015 (1.005-1.035) Urine Protein 2+ (NEGATIVE) H Urine Glucose (UA) Negative (NEGATIVE) Urine Ketones Negative (NEGATIVE) Urine Occult Blood 2+ (NEGATIVE) H Urine Nitrite Negative (NEGATIVE) Urine Bilirubin Negative (NEGATIVE) Urine Urobilinogen Normal MG/DL (0.0-1.0) Urine Leukocyte Esterase Negative (NEGATIVE) Urine RBC 0-2 /HPF (0 - 0) H Urine WBC 0-2 /HPF (0 - 0) Urine Squamous Epithelial Cells Moderate /LPF (NONE/OCC) H Urine Amorphous Sediment Few /LPF (NONE) H Urine Bacteria Moderate /HPF (NONE) H White Blood Count 17.9 K/UL (4.8-10.8) H Red Blood Count 3.75 M/UL (4.70-6.10) L Hemoglobin 11.0 G/DL (14.2-18.0) L Hematocrit 34.1 % (42.0-52.0) L Mean Corpuscular Volume 91 FL (80-99) Mean Corpuscular Hemoglobin 29.3 PG (27.0-31.0) Mean Corpuscular Hemoglobin Concent 32.2 G/DL (32.0-36.0) Red Cell Distribution Width 15.8 % (11.6-14.8) H Platelet Count 139 K/UL (150-450) L Mean Platelet Volume 10.6 FL (6.5-10.1) H Neutrophils (%) (Auto) 82.3 % (45.0-75.0) H Lymphocytes (%) (Auto) 7.2 % (20.0-45.0) L Monocytes (%) (Auto) 9.7 % (1.0-10.0) Eosinophils (%) (Auto) 0.6 % (0.0-3.0) Basophils (%) (Auto) 0.3 % (0.0-2.0) Sodium Level 143 MMOL/L (136-145) Potassium Level 3.2 MMOL/L (3.5-5.1) L Chloride Level 105 MMOL/L (98-107) Carbon Dioxide Level 26 MMOL/L (21-32) Anion Gap 12 mmol/L (5-15) Blood Urea Nitrogen 35 mg/dL (7-18) H Creatinine 2.9 MG/DL (0.55-1.30) H Estimat Glomerular Filtration Rate mL/min (>60) Glucose Level 100 MG/DL (74-106) Calcium Level 9.0 MG/DL (8.5-10.1) Phosphorus Level 4.1 MG/DL (2.5-4.9) Magnesium Level 1.9 MG/DL (1.8-2.4) Total Bilirubin 0.8 MG/DL (0.2-1.0) Direct Bilirubin 0.3 MG/DL (0.0-0.3) Gamma Glutamyl Transpeptidase 80 U/L (5-85) Aspartate Amino Transf (AST/SGOT) 40 U/L (15-37) H Alanine Aminotransferase (ALT/SGPT) 25 U/L (12-78) Alkaline Phosphatase 48 U/L (46-116) C-Reactive Protein, Quantitative 13.8 mg/dL (0.00-0.90) H Total Protein 6.8 G/DL (6.4-8.2) Albumin 2.3 G/DL (3.4-5.0) L Neurologic Exam Objective PHYSICAL EXAMINATION: GENERAL: He is a well-developed relatively well-nourished black gentleman, lying in bed, in no acute distress. HEAD: Normocephalic and atraumatic. NECK: No neck rigidity was observed. EENT: Examination benign. NEUROLOGICAL EXAMINATION: MENTAL STATUS EXAMINATION: He was awake and alert. He was oriented to person, place, and time except for the exact date. He was able to recall 3/3 words immediately after 1 minute and after 3 minutes on the second trial. He was able to remember presidents, Trump through [employer] with hints. His mathematical skills were fairly good. His visuospatial function was preserved. SPEECH: He had a mild dysarthria. LANGUAGE: He had no aphasia. CRANIAL NERVES EXAMINATION: II: The visual field were full on confrontation testing. III, IV & : External ocular movements were full and the pupils 3 mm in diameter, equal, round, regular, and reactive to light. V: He had normal facial sensations and the temporales, masseters, and pterygoids functioned normally. VII: He had left seventh central facial paresis. VIII: He was able to hear well bilaterally and had no nystagmus. IX: The palate moved symmetrically on phonation. X: He had no hoarseness of voice. XI: The sternocleidomastoids and trapezii functioned normally. XII: The tongue was in the midline without any fasciculations or atrophy. MOTOR SYSTEM: The tone was normal on the right side and diminished on the left side. Examination of muscle mass revealed no focal wasting. Examination of power revealed G 5/5 power in the right upper extremity. In the right lower extremity he also had G 5/5 power except for G 5-/5 power in the iliopsoas. On the left side, he had G 2/5 in the deltoid, G 1/5 in the biceps, G 0/5 in the triceps, G 0/5 in the wrist and fingers, G 3/5 in the hip rotators, G 4/5 in the quadriceps, hamstrings, ankle plantar flexors and toe flexors, and G 3/5 in the ankle dorsiflexors and toe extensors. SENSORY EXAMINATION: He tended to neglect his left side minimally. He made errors on testing for pinprick and light touch over his entire left body. In addition, he had normal graphesthesia on the right side and agraphesthesia on the left side. REFLEXES: 1++ on the right and 0 on the left at the biceps, triceps, and brachioradialis, 1++ on the right and 2++ on the left at the knees. 0 at both ankles. The plantar response was flexor on the right and extensor on the left. COORDINATION: He performed well on [id number] testing on the right side. He was unable to perform on the left side. He was unable to perform [id number] testing bilaterally. STANCE & GAIT: Could not be tested. Impression/Recommendations Diagnostic Impression 1. Mr Agnes Winslow is a 77-year-old, right-handed, black gentleman, who does have a past history of hypertension, chronic kidney disease, cardiomyopathy, severe congestive heart failure with an ejection fraction at 15% in the near past and asthma. On 01/01/2018, he suddenly developed left-sided weakness. He was brought into the [facility] emergency room, diagnosed with a left brain stroke, and given tPA. Following that he became significantly weaker on his left side, has developed left-sided neglect, and some visual problems on that side. 2. He feels better today. The AICD implant site is less painful. The mind is clearer. His left side is still significantly weak. He is able to see well on his left side. He is aware of his left sided deficits. He however is still neglecting the left side. He has noted no new neurologic symptoms. 3. On neurological examination at this time, he is mildly disoriented, has mild problems with memory, has a mild dysarthria, he has a left seventh central facial paresis, a significant left hemiparesis, right proximal lower extremity weakness, a left hemisensory deficit and agraphesthesia, loss of deep tendon reflexes in the upper extremities with a brisk left knee jerk and extensor plantar response on the left side. 4. The CT scan of the brain without contrast performed on 01/01/2018 was read as being normal. 5. An MRI scan of the brain performed on 01/01/2018 revealed "an acute small area of right parietal infarct, but no other pathology". 6. The repeat CT of the brain done on 01/03/18 revealed an acute infarct in the right frontal and temporal lobes. No associated acute hemorrhage. 7. The carotid duplex scan was reported as being within normal limits. 8. 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 His neurologic function was improving. However his weakness got worse following the AICD implant and has improved minimally since then but is still not at his pre-AICD baseline. Recommendations 1. Continue present management. 2. Physical, occupational and speech and language therapy. 3. Consider acute rehabilitation. 4. ASA 81 mg q day. 7. Continue Lipitor with LDL goal of <70. Arun Lara M.D., M.S.P.H. ARUN LARA Jan 14, 2018 15:51
--- NOTE | 2018-01-14 15:54 | Infectious Diseases Prog Note ---
Assessment/Plan Assessment/Plan ASSESSMENT AND PLAN: 1. leukocytosis, ? sepsis, valeria, recent steroids, s/p defibrillator recently - leukocytosis worse, s/p defibrillator, ? post-procedure inflammatory responsive, no fevers, urine culture negative - change abx to flagyl, zyvox and cefepime - f/u labs, f/u on blood, check wbc scan - ct without obvious abscess mentioned, ? hematoma, blood cultures negative previously - see orders, change in abx - d/w Diane Silva NP 2. The patient has elevated creatinine with acute kidney injury, chronic renal failure, and anemia. 3. Acute cerebrovascular accident per history and exam + MRI noted - treatment per primary team and neurology, tpa given 4. Chronic obstructive pulmonary disease and asthma exacerbation. 5. Shortness of breath. 6. Steroids. 7. Congestive heart failure. 8. Leg edema. 9. Hypertension. 10. Blood pressure treatment per primary consultants. 11. No known allergies. 12. Social history negative. 13. Family history noncontributory. 14. MAR was noted. 15. Case discussed with RN. 16. Case discussed and communicated with Diane Silva NP for Dr. Holliday. 17. Continue treatment per primary consultants. 18. Notes and records were noted. 19. Orders were entered and communicated. 20. Case was discussed the patient's family. 21. We will follow with you. Subjective Constitutional: Reports: fatigue; Denies: fever HEENT: Denies: congestion Respiratory: Denies: shortness of breath Cardiovascular: Denies: chest pain Gastrointestinal/Abdominal: Denies: nausea, vomiting, diarrhea Genitourinary: Reports: other - + reagan ; Denies: hematuria Neurologic: Reports: weakness; Denies: headache Psychiatric: Denies: depression Skin: Denies: rash Hematologic: Denies: bleeding Musculoskeletal: Denies: pain Allergies: Coded Allergies: No Known Allergies (Unverified , 01/09/14) Objective Vital Signs Last 24 Hour Vital Signs Date Time Temp Pulse Resp B/P (MAP) Pulse Ox O2 Delivery O2 Flow Rate FiO2 01/14/18 13:48 100/54 01/14/18 12:00 97.4 84 20 133/71 94 Room Air 97.4 01/14/18 12:00 89 01/14/18 11:42 133/71 01/14/18 08:37 90 140/78 01/14/18 08:00 97.4 90 20 140/78 95 Room Air 97.4 01/14/18 08:00 92 01/14/18 06:29 130/59 01/14/18 06:29 130/59 01/14/18 04:00 85 01/14/18 04:00 99.2 88 20 130/59 97 Room Air 99.2 01/14/18 00:00 97.8 93 20 128/78 97 Room Air 97.8 01/14/18 00:00 91 01/13/18 23:26 128/78 01/13/18 22:00 121/65 01/13/18 21:53 96 121/65 01/13/18 20:00 97.7 96 20 121/65 96 Room Air 97.7 01/13/18 20:00 94 01/13/18 17:12 108/60 01/13/18 16:00 90 01/13/18 16:00 97.7 88 20 108/60 95 Room Air 97.7 Height (Feet): 5 Height (Inches): 10.00 Weight (Pounds): 158 General Appearance: no acute distress HEENT: normocephalic, atraumatic, anicteric, mucous membranes moist Respiratory/Chest: lungs clear, normal breath sounds, no accessory muscle use, respiratory distress Cardiovascular: normal rate, regular rhythm, no gallop/murmur, no JVD Abdomen: normal bowel sounds, soft, non tender, no organomegaly Genitourinary: other - + reagan urine slt cloudy Extremities: no cyanosis Skin: no rash, other - defibrillator site ok, no drainage, no cellulitis Neurologic/Psychiatric: novelty dipper II-XII grossly normal, alert, oriented x 3, responsive Lymphatic: no neck adenopathy Musculoskeletal: no effusion Objective MRI Brain: IMPRESSION: 1. Acute small area of right parietal infarct. No hemorrhage. No mass effect or midline shift. 2. Involutional changes with small vessel disease. Chest -x-ray - 01/01 and 01/04 - no consolidation Chest x-ray - 01/06 - copd, no consolidation identified, report noted CT - abdomen/pelvis - IMPRESSION: 1. The right psoas muscle is prominent when compared to the left. There is some mild infiltration of the fat adjacent to the right psoas muscle. Some mild increased density is suspected within the right psoas muscle. This is suspicious for a hematoma. The suspected hematoma cannot be from the adjacent musculature. The right psoas muscle and suspected hematoma together measure approximately 4.8 cm in maximum transverse dimensions. Evaluation for active bleeding cannot be performed without IV contrast. An infectious process or neoplastic process cannot be excluded radiographically. 2. Cardiomegaly. 3. Diverticulosis without evidence for diverticulitis. 01/06 - Chest x-ray - copd (report noted) 01/12 - chest x-ray; Findings: Pacemaker in the left anterior chest wall. There is no pneumothorax. There is blunting of the left costophrenic angle which is likely due to a small pleural effusion. Heart is enlarged. PICC line again noted. IMPRESSION: Pacemaker in good position. No pneumothorax Microbiology Date/Time Source Procedure Growth Status 01/06/18 13:58 Blood Blood Culture - Final NO GROWTH AFTER 5 DAYS Complete 01/06/18 12:14 Stool Clostridium difficile Toxin Assay - Final Complete 01/13/18 16:40 Urine,Clean Catch Urine Culture - Preliminary NO GROWTH Resulted Microbiology Date/Time Source Procedure Growth Status 01/13/18 16:40 Urine,Clean Catch Urine Culture - Preliminary NO GROWTH Resulted Laboratory Tests Test 01/13/18 16:40 01/14/18 06:30 Urine Color Pale yellow Urine Appearance Slightly cloudy Urine pH 5 (4.5-8.0) Urine Specific Clymer 1.015 (1.005-1.035) Urine Protein 2+ (NEGATIVE) H Urine Glucose (UA) Negative (NEGATIVE) Urine Ketones Negative (NEGATIVE) Urine Occult Blood 2+ (NEGATIVE) H Urine Nitrite Negative (NEGATIVE) Urine Bilirubin Negative (NEGATIVE) Urine Urobilinogen Normal MG/DL (0.0-1.0) Urine Leukocyte Esterase Negative (NEGATIVE) Urine RBC 0-2 /HPF (0 - 0) H Urine WBC 0-2 /HPF (0 - 0) Urine Squamous Epithelial Cells Moderate /LPF (NONE/OCC) H Urine Amorphous Sediment Few /LPF (NONE) H Urine Bacteria Moderate /HPF (NONE) H White Blood Count 17.9 K/UL (4.8-10.8) H Red Blood Count 3.75 M/UL (4.70-6.10) L Hemoglobin 11.0 G/DL (14.2-18.0) L Hematocrit 34.1 % (42.0-52.0) L Mean Corpuscular Volume 91 FL (80-99) Mean Corpuscular Hemoglobin 29.3 PG (27.0-31.0) Mean Corpuscular Hemoglobin Concent 32.2 G/DL (32.0-36.0) Red Cell Distribution Width 15.8 % (11.6-14.8) H Platelet Count 139 K/UL (150-450) L Mean Platelet Volume 10.6 FL (6.5-10.1) H Neutrophils (%) (Auto) 82.3 % (45.0-75.0) H Lymphocytes (%) (Auto) 7.2 % (20.0-45.0) L Monocytes (%) (Auto) 9.7 % (1.0-10.0) Eosinophils (%) (Auto) 0.6 % (0.0-3.0) Basophils (%) (Auto) 0.3 % (0.0-2.0) Sodium Level 143 MMOL/L (136-145) Potassium Level 3.2 MMOL/L (3.5-5.1) L Chloride Level 105 MMOL/L (98-107) Carbon Dioxide Level 26 MMOL/L (21-32) Anion Gap 12 mmol/L (5-15) Blood Urea Nitrogen 35 mg/dL (7-18) H Creatinine 2.9 MG/DL (0.55-1.30) H Estimat Glomerular Filtration Rate mL/min (>60) Glucose Level 100 MG/DL (74-106) Calcium Level 9.0 MG/DL (8.5-10.1) Phosphorus Level 4.1 MG/DL (2.5-4.9) Magnesium Level 1.9 MG/DL (1.8-2.4) Total Bilirubin 0.8 MG/DL (0.2-1.0) Direct Bilirubin 0.3 MG/DL (0.0-0.3) Gamma Glutamyl Transpeptidase 80 U/L (5-85) Aspartate Amino Transf (AST/SGOT) 40 U/L (15-37) H Alanine Aminotransferase (ALT/SGPT) 25 U/L (12-78) Alkaline Phosphatase 48 U/L (46-116) C-Reactive Protein, Quantitative 13.8 mg/dL (0.00-0.90) H Total Protein 6.8 G/DL (6.4-8.2) Albumin 2.3 G/DL (3.4-5.0) L Current Medications Medications (Trade) Dose Ordered Sig/Denny Route PRN Reason Start Time Stop Time Status Last Admin Dose Admin Acetaminophen (Tylenol) 650 mg Q4H PRN ORAL Mild Pain (Pain Scale 1-3) 01/08/18 20:00 01/31/18 11:59 Acetaminophen (Tylenol) 650 mg Q4H PRN ORAL T>100.5 01/08/18 20:00 01/31/18 11:59 Acetaminophen (Tylenol) 650 mg Q6H PRN ORAL Fever/Headache/Mild Pain 01/12/18 15:15 02/11/18 15:14 Acetaminophen/ Codeine Phosphate (Tylenol #3) 1 tab Q4H PRN ORAL Moderate Pain (Pain Scale 4-6) 01/12/18 15:15 01/19/18 15:14 Allopurinol (Allopurinol) 300 mg DAILY ORAL 01/09/18 09:00 02/03/18 08:59 01/14/18 08:37 Atorvastatin Calcium (Lipitor) 80 mg BEDTIME ORAL 01/08/18 21:00 02/03/18 20:59 01/13/18 21:53 Carvedilol (Coreg) 3.125 mg EVERY 12 HOURS ORAL 01/08/18 21:00 01/31/18 20:59 01/14/18 08:37 Chlorhexidine Gluconate (Caitlin-Hex 2%) 1 applic DAILY@2000 TOPIC 01/08/18 20:00 02/01/18 19:59 01/13/18 21:52 Dextrose (Dextrose 50%) 25 ml STAT PRN IV Hypoglycemia 01/08/18 17:56 02/07/18 17:55 Dextrose (Dextrose 50%) 50 ml STAT PRN IV Hypoglycemia 01/08/18 17:56 02/07/18 17:55 Fluconazole/ Sodium Chloride 100 ml @ 100 mls/hr Q24H IV 01/13/18 09:00 01/18/18 23:59 01/14/18 08:48 Furosemide (Lasix) 40 mg DAILY IV 01/11/18 09:00 02/03/18 20:59 01/14/18 08:37 Heparin Sodium (Porcine) (Heparin 5000 units/ml) 5,000 units EVERY 12 HOURS SUBQ 01/08/18 21:00 02/03/18 20:59 01/14/18 08:41 Hydralazine HCl (Apresoline) 50 mg Q8HR ORAL 01/08/18 22:00 01/31/18 13:59 01/14/18 06:29 Insulin Aspart (NovoLOG) BEFORE MEALS AND HS SUBQ 01/08/18 21:00 02/03/18 16:29 01/14/18 11:38 Isosorbide Dinitrate (Isordil) 10 mg Q6HR ORAL 01/08/18 18:00 01/31/18 17:59 01/14/18 11:42 Olanzapine (ZyPREXA) 2.5 mg HSPRN PRN ORAL Agitation 01/08/18 17:57 02/07/18 17:56 Ondansetron HCl (Zofran) 4 mg Q6H PRN IVP Nausea & Vomiting 01/08/18 17:58 01/31/18 17:57 Ondansetron HCl (Zofran) 4 mg Q6H PRN IVP Nausea & Vomiting 01/12/18 15:15 02/11/18 15:14 Pantoprazole (Protonix) 40 mg EVERY 12 HOURS ORAL 01/08/18 21:00 01/31/18 20:59 01/14/18 08:37 Piperacillin Sod/ Tazobactam Sod 3.375 gm/Sodium Chloride 110 ml @ 27.5 mls/hr Q8HR@0200,1000,1800 IVPB 01/09/18 18:00 01/16/18 17:59 01/14/18 09:55 Tamsulosin HCl (Flomax) 0.4 mg BID ORAL 01/14/18 18:00 02/13/18 17:59 Ted Gonzalez MD Jan 14, 2018 15:54
[2018-01-14 16:00] VITALS: BP 126/70
[2018-01-14] MEDS ORDERED: Cefepime HCl 1 GM in D5W 110 ML IVPB SCH (17:00)
[2018-01-14] MEDS ORDERED: Tamsulosin 0.4mg cap ORAL SCH (18:00)
[2018-01-14] MEDS ORDERED: Tylenol #3 tab (300mg/30mg) ORAL PRN (18:21)
[2018-01-14] MEDS ORDERED: OLANZapine 2.5mg tab ORAL PRN (18:24)
[2018-01-14 20:00] VITALS: BP 100/62
[2018-01-14] MEDS: Atorvastatin 80mg tab ORAL SCH (21:13)
[2018-01-14] MEDS: Dyna-Hex 2% Top Sol 2oz TOPIC SCH (21:16)
--- NOTE | 2018-01-14 23:56 | General Progress Note ---
Assessment/Plan Problem List: (1) CKD (chronic kidney disease) ICD Codes: N18.9 - CKD (chronic kidney disease) SNOMED: 797694285 Qualifiers: Qualified Codes: N18.9 - Chronic kidney disease, unspecified (2) HTN (hypertension) ICD Codes: I10 - HTN (hypertension) SNOMED: 36461149 (3) CHF (congestive heart failure) ICD Codes: I50.9 - CHF (congestive heart failure) SNOMED: 36027228 (4) Respiratory distress ICD Codes: R06.00 - Dyspnea, unspecified SNOMED: 348090037 (5) Dyspnea ICD Codes: R06.00 - Dyspnea, unspecified SNOMED: 423286358 (6) Asthma exacerbation ICD Codes: J45.901 - Unspecified asthma with (acute) exacerbation SNOMED: 746223807 (7) FIONA (acute kidney injury) ICD Codes: N17.9 - Acute kidney failure, unspecified SNOMED: 99496392 (8) CHF exacerbation ICD Codes: I50.9 - Heart failure, unspecified SNOMED: 95784500 Qualifiers: Qualified Codes: I50.9 - Heart failure, unspecified (9) CVA (cerebral vascular accident) ICD Codes: I63.9 - Cerebral infarction, unspecified SNOMED: 371731243 Qualifiers: Qualified Codes: I63.9 - Cerebral infarction, unspecified (10) Peripheral edema ICD Codes: R60.9 - Edema, unspecified SNOMED: 409720973 (11) Cardiomyopathy ICD Codes: I42.9 - Cardiomyopathy SNOMED: 16036794 (12) Malnutrition ICD Codes: E46 - Malnutrition SNOMED: 4211562 (13) Hypokalemia ICD Codes: E87.6 - Hypokalemia SNOMED: 86662389 (14) Prediabetes ICD Codes: R73.03 - Prediabetes SNOMED: 570245178 (15) HLD (hyperlipidemia) ICD Codes: E78.5 - Hyperlipidemia, unspecified SNOMED: 10540330 (16) Leukocytosis ICD Codes: D72.829 - Elevated white blood cell count, unspecified SNOMED: 880574069, 229569806 Status: stable, progressing Assessment/Plan #acute right parietal infarct - Neurology consulted, appreciate rec's - No need for transfer to stroke center at this time per neurology - NIH stroke scale last night was 2 prior to TPA. Repeat NIH stroke scale is 5 - s/p tPA given at 0300 on 01/01 - CT head on 01/01 at 0100 was negative. - MRI brain showing acute small right parietal infarct with no hemorrhage, midline shift, or mass effect - continue permissive hypertension to systolic 160-180s x 24 hours - MRA brain and neck without contrast showing attenuated appearance of the distal right middle cerebral artery likely due to technical issues. Also with short segment stenotic appearance of the right proximal ICA, cannot exclude high -grade stenosis. - carotid U/S negative - repeat CT with no bleed, showing acute infarct. also with some corresponding edema without significant mass effect --> start HSQ - ECHO with doppler showing 25-30% EF, pulmonary hypertension, and left ventricular hypokinesis - bilateral venous duplex negative - check lipid panel and A1c - ST/PT/OT eval - Passed swallow eval, on pureed. video swallow study done, f/u results - neurochecks q4hr - LDL 83. Start lipitor 80mg qhs - will start ASA 81mg after defibb placement #Acute asthma exacerbation - prednisone 40mg PO qd x 5 days (D5/5). discontinued as patient's wheezing resolved - duonebs ATC q6hr - ABGs #Sepsis/leukocytosis, unknown etiology - ID consulted, appreciate rec's - oncologist consulted, appreciate rec's --> given leukocytosis but no source/ etiology for infection - continue IV zosyn and diflucan per ID - CXR negative. Repeat CXR negative - trend CBC - WBC up to [address] a/p showing questionable hematoma. C. diff negative. f/u urine cx. CXR negative. Blood cx NGTD. - f/u white blood cell scan #Acute on chronic systolic CHF / severe cardiomyopathy - cardiology consulted, appreciate rec's - strict I&O - 1.5 L fluid restriction - lasix 80mg IV BID --> lasix 60 IV BID --> lasix 40mg IV BID - permissive HTN with systolic 160-180s given acute CVA till 01/02 - dobutamine gtt titrated down to 1 mcg/min - s/p PICC line 01/03 - EF 25-30% - s/p biotronic dual chamber ICD implant on 01/12/18. Interrogated and showed normal function. #FIONA due to cardiorenal syndrome - nephrology consulted, appreciate rec's - trend Cr - check urine lytes - avoid IVF given CHF exacerbation #Hypokalemia - replete electrolytes prn. monitor BMP and Mg #HLD - start lipitor 80mg #Prediabetes - A1c 6.2 - will start MURIEL for now - will discharge patient on glipizide START ASA 81MG FOR PATIENT UPON DISCHARGE DC PLANNING TO [facility] IN AM IF CLEARED PER ID/HEMATOLOGY. CLEARED PER CARDIOLOGY. DVT ppx: HSQ Discussed case in detail with nursing staff, case management, cardiology, nephrology, neurology, ID, patient, and family. Case d/w Dr. Holliday who agrees to the plan above. Disposition: [facility] (patient accepted to facility, family/patient agreeable) I spent a total of 40 minutes on this patient's case with greater than 50% spent on care and coordination of the patient. Subjective Date patient seen: Jan 14, 2018 Time patient seen: 15:00 Allergies: Coded Allergies: No Known Allergies (Unverified , 01/09/14) Subjective - S/P Biotronic dual chamber ICD implant, POD#2 - doing well. AF, HDS - WBC continues to uptrend Objective Last 24 Hour Vital Signs Date Time Temp Pulse Resp B/P (MAP) Pulse Ox O2 Delivery O2 Flow Rate FiO2 01/14/18 23:42 116/61 01/14/18 22:00 100/62 01/14/18 21:13 102 100/62 01/14/18 20:00 98.9 102 20 100/62 96 Room Air 98.9 01/14/18 17:23 126/70 01/14/18 16:00 97.7 90 19 126/70 96 Room Air 97.7 01/14/18 16:00 92 01/14/18 13:48 100/54 01/14/18 12:00 97.4 84 20 133/71 94 Room Air 97.4 01/14/18 12:00 89 01/14/18 11:42 133/71 01/14/18 08:37 90 140/78 01/14/18 08:00 97.4 90 20 140/78 95 Room Air 97.4 01/14/18 08:00 92 01/14/18 06:29 130/59 6/1/18 06:29 130/59 01/14/18 04:00 85 01/14/18 04:00 99.2 88 20 130/59 97 Room Air 99.2 01/14/18 00:00 97.8 93 20 128/78 97 Room Air 97.8 01/14/18 00:00 91 Intake and Output 01/13/18 01/14/18 19:00 07:00 Intake Total 707.5 ml 160.5 ml Output Total 400 ml Balance 707.5 ml -239.5 ml Intake Oral 360 ml IV Total 347.5 ml 160.5 ml Output Urine Total 400 ml # Voids 3 2 Laboratory Tests 01/14/18 06:30: White Blood Count 17.9H, Red Blood Count 3.75L, Hemoglobin 11.0L, Hematocrit 34.1L, Mean Corpuscular Volume 91, Mean Corpuscular Hemoglobin 29.3, Mean Corpuscular Hemoglobin Concent 32.2, Red Cell Distribution Width 15.8H, Platelet Count 139L, Mean Platelet Volume 10.6H, Neutrophils (%) (Auto) 82.3H, Lymphocytes (%) (Auto) 7.2L, Monocytes (%) (Auto) 9.7, Eosinophils (%) (Auto) 0.6, Basophils (%) (Auto) 0.3, Sodium Level 143, Potassium Level 3.2L, Chloride Level 105, Carbon Dioxide Level 26, Anion Gap 12, Blood Urea Nitrogen 35H, Creatinine 2.9H, Estimat Glomerular Filtration Rate , Glucose Level 100, Calcium Level 9.0, Phosphorus Level 4.1, Magnesium Level 1.9, Total Bilirubin 0.8, Direct Bilirubin 0.3, Gamma Glutamyl Transpeptidase 80, Aspartate Amino Transf (AST/SGOT) 40H, Alanine Aminotransferase (ALT/SGPT) 25, Alkaline Phosphatase 48, C-Reactive Protein, Quantitative 13.8H, Total Protein 6.8, Albumin 2.3L Height (Feet): 5 Height (Inches): 10.00 Weight (Pounds): 158 General Appearance: no apparent distress, alert EENT: PERRL/EOMI, normal ENT inspection Neck: non-tender, normal alignment, supple Cardiovascular: normal peripheral pulses, normal rate, regular rhythm, pacemaker/AICD Respiratory/Chest: chest wall non-tender, lungs clear, normal breath sounds Abdomen: normal bowel sounds, non tender, soft Genitourinary/Rectal: other - +reagan Edema: mild edema Neurologic: organ assembler II-XII grossly normal, abnormal gait, alert, oriented x 3, other - left hemiplegia Skin: normal pigmentation, warm/dry Diane Silva NP Jan 14, 2018 23:56
[2018-01-15] VITALS: BP 116/61
[2018-01-15 04:00] VITALS: BP 114/68
[2018-01-15] MEDS: HydrALAZINE 50mg tab ORAL SCH ×3 (06:00→22:14)
[2018-01-15] MEDS: NovoLOG Insulin Flexpen SUBQ SCH ×4 (06:26→20:46)
[2018-01-15 08:00] VITALS: BP 109/60
[2018-01-15 09:05] LABS: HEMATOCRIT 34.6 % (42.0-52.0); HEMOGLOBIN 10.9 G/DL (14.2-18.0); MEAN CORPUSCULAR VOLUME 91 FL (80-99); PLATELET COUNT 160 K/UL (150-450); RED BLOOD COUNT 3.82 M/UL (4.70-6.10); RED CELL DISTRIBUTION WIDTH 15.3 % (11.6-14.8); WHITE BLOOD COUNT 18.2 K/UL (4.8-10.8)
[2018-01-15] MEDS: Tamsulosin 0.4mg cap ORAL SCH ×2 (09:08→20:44)
[2018-01-15 09:17] LABS: ALANINE AMINOTRANSFERASE 15 U/L (12-78); ALBUMIN 2.2 G/DL (3.4-5.0); ALBUMIN/GLOBULIN RATIO 0.5 (1.0-2.7); ALKALINE PHOSPHATASE 48 U/L (46-116); ANION GAP 11 mmol/L (5-15); BILIRUBIN,TOTAL 0.7 MG/DL (0.2-1.0); BLOOD UREA NITROGEN 30 mg/dL (7-18); CALCIUM 9.2 MG/DL (8.5-10.1); CARBON DIOXIDE 26 MMOL/L (21-32); CHLORIDE 105 MMOL/L (98-107); CREATININE 2.7 MG/DL (0.55-1.30); POTASSIUM 3.3 MMOL/L (3.5-5.1); SODIUM 142 MMOL/L (136-145)
[2018-01-15 09:30] LABS: ASPARTATE AMINO TRANSFERASE 38 U/L (15-37)
[2018-01-15 12:00] VITALS: BP 115/61
--- NOTE | 2018-01-15 12:17 | Nephrology Progress Note ---
Assessment/Plan Problem List: (1) CKD (chronic kidney disease) (2) CHF (congestive heart failure) (3) Cardiomyopathy (4) Proteinuria Assessment Cr 2.7 WBCs elevated CKD- chronic systolic heart failure Right heart failuer Edema due to above and possible venous insuf Non-ischemic cardiomyopathy no cad by cath 2016 History of DVT pulmonary HTN h/o Thrombocytopenia HTN Proteinuria previous echo: Severe global left ventricular hypokinesis with septal thinning. Left ventricular ejection fraction estimated to be 10-15 %. Plan Per ID- mag and K supplement as needed Optimize cardiac status, monitor renal parameters Avoid nephrotoxics per orders Subjective ROS Limited/Unobtainable: No Constitutional: Reports: malaise Objective Objective Last 24 Hour Vital Signs Date Time Temp Pulse Resp B/P (MAP) Pulse Ox O2 Delivery O2 Flow Rate FiO2 01/15/18 09:00 87 109/60 01/15/18 08:00 97.9 87 20 109/60 95 Room Air 97.9 01/15/18 06:24 107/68 01/15/18 06:00 107/68 01/15/18 04:00 98.3 86 20 114/68 97 Room Air 98.3 01/15/18 00:00 98.0 84 20 116/61 95 Room Air 98.0 01/14/18 23:42 116/61 01/14/18 22:00 100/62 01/14/18 21:13 102 100/62 01/14/18 20:00 98.9 102 20 100/62 96 Room Air 98.9 01/14/18 17:23 126/70 01/14/18 16:00 97.7 90 19 126/70 96 Room Air 97.7 01/14/18 16:00 92 01/14/18 13:48 100/54 Intake and Output 01/14/18 01/15/18 19:00 07:00 Intake Total 670.0 ml 520 ml Output Total 500 ml 200 ml Balance 170.0 ml 320 ml Intake Oral 240 ml 120 ml IV Total 430.0 ml 400 ml Output Urine Total 500 ml 200 ml # Bowel Movements 2 1 Laboratory Tests 01/15/18 06:20: White Blood Count 18.2H, Red Blood Count 3.82L, Hemoglobin 10.9L, Hematocrit 34.6L, Mean Corpuscular Volume 91, Mean Corpuscular Hemoglobin 28.5, Mean Corpuscular Hemoglobin Concent 31.5L, Red Cell Distribution Width 15.3H, Platelet Count 160, Mean Platelet Volume 10.3H, Neutrophils (%) (Auto) , Lymphocytes (%) (Auto) , Monocytes (%) (Auto) , Eosinophils (%) (Auto) , Basophils (%) (Auto) , Differential Total Cells Counted 100, Neutrophils % ( Manual) 86H, Lymphocytes % (Manual) 7L, Monocytes % (Manual) 7, Eosinophils % ( Manual) 0, Basophils % (Manual) 0, Band Neutrophils 0, Platelet Estimate Adequate, Platelet Morphology Normal, Anisocytosis 1+, Sodium Level 142, Potassium Level 3.3L, Chloride Level 105, Carbon Dioxide Level 26, Anion Gap 11 , Blood Urea Nitrogen 30H, Creatinine 2.7H, Estimat Glomerular Filtration Rate , Glucose Level 108H, Calcium Level 9.2, Total Bilirubin 0.7, Aspartate Amino Transf (AST/SGOT) 38H, Alanine Aminotransferase (ALT/SGPT) 15, Alkaline Phosphatase 48, Total Protein 6.8, Albumin 2.2L, Globulin 4.6, Albumin/Globulin Ratio 0.5L Height (Feet): 5 Height (Inches): 10.00 Weight (Pounds): 161 General Appearance: no apparent distress Objective no other change BHARATHI LOVE Jan 15, 2018 12:17
[2018-01-15] MEDS: Heparin 5000 units/ml inj SUBQ SCH ×2 (13:06→20:47)
--- NOTE | 2018-01-15 13:33 | General Progress Note ---
Assessment/Plan Problem List: (1) CKD (chronic kidney disease) ICD Codes: N18.9 - CKD (chronic kidney disease) SNOMED: 013789565 Qualifiers: Qualified Codes: N18.9 - Chronic kidney disease, unspecified (2) HTN (hypertension) ICD Codes: I10 - HTN (hypertension) SNOMED: 90938979 (3) CHF (congestive heart failure) ICD Codes: I50.9 - CHF (congestive heart failure) SNOMED: 86771433 (4) Respiratory distress ICD Codes: R06.00 - Dyspnea, unspecified SNOMED: 626416366 (5) Dyspnea ICD Codes: R06.00 - Dyspnea, unspecified SNOMED: 469281497 (6) Asthma exacerbation ICD Codes: J45.901 - Unspecified asthma with (acute) exacerbation SNOMED: 329325175 (7) FIONA (acute kidney injury) ICD Codes: N17.9 - Acute kidney failure, unspecified SNOMED: 03763274 (8) CHF exacerbation ICD Codes: I50.9 - Heart failure, unspecified SNOMED: 44240913 Qualifiers: Qualified Codes: I50.9 - Heart failure, unspecified (9) CVA (cerebral vascular accident) ICD Codes: I63.9 - Cerebral infarction, unspecified SNOMED: 855198121 Qualifiers: Qualified Codes: I63.9 - Cerebral infarction, unspecified (10) Peripheral edema ICD Codes: R60.9 - Edema, unspecified SNOMED: 764667123 (11) Cardiomyopathy ICD Codes: I42.9 - Cardiomyopathy SNOMED: 14427416 (12) Malnutrition ICD Codes: E46 - Malnutrition SNOMED: 9944159 (13) Hypokalemia ICD Codes: E87.6 - Hypokalemia SNOMED: 07658047 (14) Prediabetes ICD Codes: R73.03 - Prediabetes SNOMED: 927680946 (15) HLD (hyperlipidemia) ICD Codes: E78.5 - Hyperlipidemia, unspecified SNOMED: 94536815 (16) Leukocytosis ICD Codes: D72.829 - Elevated white blood cell count, unspecified SNOMED: 773293391, 509029544 Status: stable, progressing Assessment/Plan #acute right parietal infarct - Neurology consulted, appreciate rec's - No need for transfer to stroke center at this time per neurology - NIH stroke scale last night was 2 prior to TPA. Repeat NIH stroke scale is 5 - s/p tPA given at 0300 on 01/01 - CT head on 01/01 at 0100 was negative. - MRI brain showing acute small right parietal infarct with no hemorrhage, midline shift, or mass effect - continue permissive hypertension to systolic 160-180s x 24 hours - MRA brain and neck without contrast showing attenuated appearance of the distal right middle cerebral artery likely due to technical issues. Also with short segment stenotic appearance of the right proximal ICA, cannot exclude high -grade stenosis. - carotid U/S negative - repeat CT with no bleed, showing acute infarct. also with some corresponding edema without significant mass effect --> start HSQ - ECHO with doppler showing 25-30% EF, pulmonary hypertension, and left ventricular hypokinesis - bilateral venous duplex negative - check lipid panel and A1c - ST/PT/OT eval - Passed swallow eval, on pureed. video swallow study done, f/u results - neurochecks q4hr - LDL 83. Start lipitor 80mg qhs - will start ASA 81mg after defibb placement #Acute asthma exacerbation - prednisone 40mg PO qd x 5 days (D5/5). discontinued as patient's wheezing resolved - duonebs ATC q6hr - ABGs #Sepsis/leukocytosis, unknown etiology - ID consulted, appreciate rec's - oncologist consulted, appreciate rec's --> given leukocytosis but no source/ etiology for infection - continue IV zosyn and diflucan per ID - CXR negative. Repeat CXR negative - trend CBC - WBC up to 17.8 yesterday postoperatively. WBC for today pending. CT a/p showing questionable hematoma. C. diff negative. f/u urine cx. CXR negative. Blood cx NGTD. - f/u indium white blood cell scan, to be done on Wednesday #Acute on chronic systolic CHF / severe cardiomyopathy - cardiology consulted, appreciate rec's - strict I&O - 1.5 L fluid restriction - lasix 80mg IV BID --> lasix 60 IV BID --> lasix 40mg IV BID - permissive HTN with systolic 160-180s given acute CVA till 01/02 - dobutamine gtt titrated down to 1 mcg/min - s/p PICC line 01/03 - EF 25-30% - s/p biotronic dual chamber ICD implant on 01/12/18. Interrogated and showed normal function. #FIONA due to cardiorenal syndrome - nephrology consulted, appreciate rec's - trend Cr - check urine lytes - avoid IVF given CHF exacerbation #Hypokalemia - replete electrolytes prn. monitor BMP and Mg #HLD - start lipitor 80mg #Prediabetes - A1c 6.2 - will start MURIEL for now - will discharge patient on glipizide DC PLANNING TO [facility] IN AM IF CLEARED PER ID/HEMATOLOGY. CLEARED PER CARDIOLOGY. DVT ppx: HSQ Discussed case in detail with nursing staff, case management, cardiology, nephrology, neurology, ID, patient, and family. Case d/w Dr. Holliday who agrees to the plan above. Disposition: [facility] (patient accepted to facility, family/patient agreeable) I spent a total of 40 minutes on this patient's case with greater than 50% spent on care and coordination of the patient. Subjective Date patient seen: Jan 15, 2018 Time patient seen: 12:20 Allergies: Coded Allergies: No Known Allergies (Unverified , 01/09/14) Subjective - S/P Biotronic dual chamber ICD implant, POD#3 - doing well. AF, HDS - labs pending for today - indium scan to be done Wednesday per RN - at bedside Objective Last 24 Hour Vital Signs Date Time Temp Pulse Resp B/P (MAP) Pulse Ox O2 Delivery O2 Flow Rate FiO2 01/15/18 13:09 115/68 01/15/18 13:04 109/60 01/15/18 09:00 87 109/60 01/15/18 08:00 97.9 87 20 109/60 95 Room Air 97.9 01/15/18 06:24 107/68 01/15/18 06:00 107/68 01/15/18 04:00 98.3 86 20 114/68 97 Room Air 98.3 01/15/18 00:00 98.0 84 20 116/61 95 Room Air 98.0 01/14/18 23:42 116/61 01/14/18 22:00 100/62 01/14/18 21:13 102 100/62 01/14/18 20:00 98.9 102 20 100/62 96 Room Air 98.9 01/14/18 17:23 126/70 01/14/18 16:00 97.7 90 19 126/70 96 Room Air 97.7 01/14/18 16:00 92 01/14/18 13:48 100/54 Intake and Output 01/14/18 01/15/18 19:00 07:00 Intake Total 670.0 ml 520 ml Output Total 500 ml 200 ml Balance 170.0 ml 320 ml Intake Oral 240 ml 120 ml IV Total 430.0 ml 400 ml Output Urine Total 500 ml 200 ml # Bowel Movements 2 1 Laboratory Tests 01/15/18 06:20: White Blood Count 18.2H, Red Blood Count 3.82L, Hemoglobin 10.9L, Hematocrit 34.6L, Mean Corpuscular Volume 91, Mean Corpuscular Hemoglobin 28.5, Mean Corpuscular Hemoglobin Concent 31.5L, Red Cell Distribution Width 15.3H, Platelet Count 160, Mean Platelet Volume 10.3H, Neutrophils (%) (Auto) , Lymphocytes (%) (Auto) , Monocytes (%) (Auto) , Eosinophils (%) (Auto) , Basophils (%) (Auto) , Differential Total Cells Counted 100, Neutrophils % ( Manual) 86H, Lymphocytes % (Manual) 7L, Monocytes % (Manual) 7, Eosinophils % ( Manual) 0, Basophils % (Manual) 0, Band Neutrophils 0, Platelet Estimate Adequate, Platelet Morphology Normal, Anisocytosis 1+, Sodium Level 142, Potassium Level 3.3L, Chloride Level 105, Carbon Dioxide Level 26, Anion Gap 11 , Blood Urea Nitrogen 30H, Creatinine 2.7H, Estimat Glomerular Filtration Rate , Glucose Level 108H, Calcium Level 9.2, Total Bilirubin 0.7, Aspartate Amino Transf (AST/SGOT) 38H, Alanine Aminotransferase (ALT/SGPT) 15, Alkaline Phosphatase 48, Total Protein 6.8, Albumin 2.2L, Globulin 4.6, Albumin/Globulin Ratio 0.5L Height (Feet): 5 Height (Inches): 10.00 Weight (Pounds): 161 General Appearance: no apparent distress, alert EENT: PERRL/EOMI, normal ENT inspection Neck: non-tender, normal alignment, supple Cardiovascular: normal peripheral pulses, normal rate, regular rhythm Respiratory/Chest: chest wall non-tender, lungs clear, normal breath sounds Abdomen: normal bowel sounds, non tender, soft 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
[2018-01-15] MEDS ORDERED: Aspirin Baby 81mg ORAL SCH (14:00)
--- NOTE | 2018-01-15 14:16 | Neurology Progress Note ---
Interim History Interim History Interim History Mr. Winslow feels better generally. The AICD implant site is less painful. He had some momentary pain over his right chest wall earlier. The mind is clearer. He says he is eating well. His left side is still significantly weak. He is able to see well on his left side. He is aware of his left sided deficits. He however is still neglecting the left side. He has noted no new neurologic symptoms. Review of Systems Neuro Review of Systems Benign. Objective Physical Exam Last Vital Signs Date Time Temp Pulse Resp B/P (MAP) Pulse Ox O2 Delivery O2 Flow Rate FiO2 01/15/18 13:09 115/68 01/15/18 12:00 98.0 88 20 95 Room Air 98.0 01/13/18 11:25 3.0 01/06/18 08:16 21 Laboratory Tests Test 01/15/18 06:20 White Blood Count 18.2 K/UL (4.8-10.8) H Red Blood Count 3.82 M/UL (4.70-6.10) L Hemoglobin 10.9 G/DL (14.2-18.0) L Hematocrit 34.6 % (42.0-52.0) L Mean Corpuscular Volume 91 FL (80-99) Mean Corpuscular Hemoglobin 28.5 PG (27.0-31.0) Mean Corpuscular Hemoglobin Concent 31.5 G/DL (32.0-36.0) L Red Cell Distribution Width 15.3 % (11.6-14.8) H Platelet Count 160 K/UL (150-450) Mean Platelet Volume 10.3 FL (6.5-10.1) H Neutrophils (%) (Auto) % (45.0-75.0) Lymphocytes (%) (Auto) % (20.0-45.0) Monocytes (%) (Auto) % (1.0-10.0) Eosinophils (%) (Auto) % (0.0-3.0) Basophils (%) (Auto) % (0.0-2.0) Differential Total Cells Counted 100 Neutrophils % (Manual) 86 % (45-75) H Lymphocytes % (Manual) 7 % (20-45) L Monocytes % (Manual) 7 % (1-10) Eosinophils % (Manual) 0 % (0-3) Basophils % (Manual) 0 % (0-2) Band Neutrophils 0 % (0-8) Platelet Estimate Adequate Platelet Morphology Normal Anisocytosis 1+ Sodium Level 142 MMOL/L (136-145) Potassium Level 3.3 MMOL/L (3.5-5.1) L Chloride Level 105 MMOL/L (98-107) Carbon Dioxide Level 26 MMOL/L (21-32) Anion Gap 11 mmol/L (5-15) Blood Urea Nitrogen 30 mg/dL (7-18) H Creatinine 2.7 MG/DL (0.55-1.30) H Estimat Glomerular Filtration Rate mL/min (>60) Glucose Level 108 MG/DL (74-106) H Calcium Level 9.2 MG/DL (8.5-10.1) Total Bilirubin 0.7 MG/DL (0.2-1.0) Aspartate Amino Transf (AST/SGOT) 38 U/L (15-37) H Alanine Aminotransferase (ALT/SGPT) 15 U/L (12-78) Alkaline Phosphatase 48 U/L (46-116) Total Protein 6.8 G/DL (6.4-8.2) Albumin 2.2 G/DL (3.4-5.0) L Globulin 4.6 g/dL Albumin/Globulin Ratio 0.5 (1.0-2.7) L Neurologic Exam Objective PHYSICAL EXAMINATION: GENERAL: He is a well-developed relatively well-nourished black gentleman, lying in bed, in no acute distress. HEAD: Normocephalic and atraumatic. NECK: No neck rigidity was observed. EENT: Examination benign. NEUROLOGICAL EXAMINATION: MENTAL STATUS EXAMINATION: He was awake and alert. He was oriented to person, place, and time except for the exact date. He was able to recall 3/3 words immediately after 1 minute and after 3 minutes on the second trial. He was able to remember presidents, Trump through [employer] with hints. His mathematical skills were fairly good. His visuospatial function was preserved. SPEECH: He had a mild dysarthria. LANGUAGE: He had no aphasia. CRANIAL NERVES EXAMINATION: II: The visual field were full on confrontation testing. III, IV & : External ocular movements were full and the pupils 3 mm in diameter, equal, round, regular, and reactive to light. V: He had normal facial sensations and the temporales, masseters, and pterygoids functioned normally. VII: He had left seventh central facial paresis. VIII: He was able to hear well bilaterally and had no nystagmus. IX: The palate moved symmetrically on phonation. X: He had no hoarseness of voice. XI: The sternocleidomastoids and trapezii functioned normally. XII: The tongue was in the midline without any fasciculations or atrophy. MOTOR SYSTEM: The tone was normal on the right side and diminished on the left side. Examination of muscle mass revealed no focal wasting. Examination of power revealed G 5/5 power in the right upper extremity. In the right lower extremity he also had G 5/5 power except for G 5-/5 power in the iliopsoas. On the left side, he had G 2/5 in the deltoid, G 1/5 in the biceps, G 0/5 in the triceps, G 0/5 in the wrist and fingers, G 3/5 in the hip rotators, G 4/5 in the quadriceps, hamstrings, ankle plantar flexors and toe flexors, and G 3/5 in the ankle dorsiflexors and toe extensors. SENSORY EXAMINATION: He tended to neglect his left side minimally. He made errors on testing for pinprick and light touch over his entire left body. In addition, he had normal graphesthesia on the right side and agraphesthesia on the left side. REFLEXES: 1++ on the right and 0 on the left at the biceps, triceps, and brachioradialis, 1++ on the right and 2++ on the left at the knees. 0 at both ankles. The plantar response was flexor on the right and extensor on the left. COORDINATION: He performed well on [id number] testing on the right side. He was unable to perform on the left side. He was unable to perform [id number] testing bilaterally. STANCE & GAIT: Could not be tested. Impression/Recommendations Diagnostic Impression 1. Mr Agnes Winslow is a 77-year-old, right-handed, black gentleman, who does have a past history of hypertension, chronic kidney disease, cardiomyopathy, severe congestive heart failure with an ejection fraction at 15% in the near past and asthma. On 01/01/2018, he suddenly developed left-sided weakness. He was brought into the [facility] emergency room, diagnosed with a left brain stroke, and given tPA. Following that he became significantly weaker on his left side, has developed left-sided neglect, and some visual problems on that side. 2. He feels better generally. The AICD implant site is less painful. The mind is clearer. His left side is still significantly weak. He is able to see well on his left side. He is aware of his left sided deficits. He however is still neglecting the left side. He has noted no new neurologic symptoms. 3. On neurological examination at this time, he is mildly disoriented, has mild problems with memory, has a mild dysarthria, he has a left seventh central facial paresis, a significant left hemiparesis, right proximal lower extremity weakness, a left hemisensory deficit and agraphesthesia, loss of deep tendon reflexes in the upper extremities with a brisk left knee jerk and extensor plantar response on the left side. 4. The CT scan of the brain without contrast performed on 01/01/2018 was read as being normal. 5. An MRI scan of the brain performed on 01/01/2018 revealed "an acute small area of right parietal infarct, but no other pathology". 6. The repeat CT of the brain done on 01/03/18 revealed an acute infarct in the right frontal and temporal lobes. No associated acute hemorrhage. 7. The carotid duplex scan was reported as being within normal limits. 8. 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 His neurologic function was improving. However his weakness got worse following the AICD implant and has improved minimally since then but is still not at his pre-AICD baseline. Recommendations 1. Continue present management. 2. Physical, occupational and speech and language therapy. 3. Consider acute rehabilitation. 4. ASA 81 mg q day. 7. Continue Lipitor with LDL goal of <70. Arun Lara M.D., M.S.P.H. ARUN LARA Jan 15, 2018 14:16
[2018-01-15] MEDS ORDERED: Tubing IV Secondary IV ONE (15:28)
[2018-01-15 16:00] VITALS: BP 104/53
[2018-01-15] MEDS: Cefepime HCl 1 GM in D5W 110 ML IVPB SCH (17:34)
--- NOTE | 2018-01-15 18:48 | Infectious Diseases Prog Note ---
Assessment/Plan Assessment/Plan ASSESSMENT AND PLAN: 1. leukocytosis, ? sepsis, valeria, recent steroids, s/p defibrillator recently - leukocytosis worse, s/p defibrillator, ? post-procedure inflammatory responsive, no fevers, urine culture negative, blood culture negative - flagyl, zyvox and cefepime - f/u on cultures, check wbc scan, check f/u chest x-ray - ct without obvious abscess mentioned, ? hematoma, blood cultures negative previously - if wbc negative then consider discontinuing antibiotics 2. The patient has elevated creatinine with acute kidney injury, chronic renal failure, and anemia. 3. Acute cerebrovascular accident per history and exam + MRI noted - treatment per primary team and neurology, tpa given 4. Chronic obstructive pulmonary disease and asthma exacerbation. 5. Shortness of breath. 6. Steroids. 7. Congestive heart failure. 8. Leg edema. 9. Hypertension. 10. Blood pressure treatment per primary consultants. 11. No known allergies. 12. Social history negative. 13. Family history noncontributory. 14. MAR was noted. 15. Case discussed with RN. 16. Case discussed and communicated with Diane Silva NP for Dr. Holliday. 17. Continue treatment per primary consultants. 18. Notes and records were noted. 19. Orders were entered and communicated. 20. Case was discussed the patient's family. 21. We will follow with you. Subjective Constitutional: Denies: fever HEENT: Denies: congestion Respiratory: Denies: shortness of breath Cardiovascular: Denies: chest pain Gastrointestinal/Abdominal: Denies: nausea, vomiting, diarrhea Genitourinary: Reports: other - no reagan Neurologic: Denies: headache Psychiatric: Denies: depression Skin: Denies: rash Hematologic: Denies: bleeding Musculoskeletal: Denies: pain Allergies: Coded Allergies: No Known Allergies (Unverified , 01/09/14) Objective Vital Signs Last 24 Hour Vital Signs Date Time Temp Pulse Resp B/P (MAP) Pulse Ox O2 Delivery O2 Flow Rate FiO2 01/15/18 17:32 104/53 01/15/18 16:00 97.8 87 20 104/53 95 Room Air 97.8 01/15/18 13:09 115/68 01/15/18 13:04 109/60 01/15/18 12:00 98.0 88 20 115/61 95 Room Air 98.0 6/2/18 09:00 87 109/60 01/15/18 08:00 97.9 87 20 109/60 95 Room Air 97.9 01/15/18 06:24 107/68 01/15/18 06:00 107/68 01/15/18 04:00 98.3 86 20 114/68 97 Room Air 98.3 01/15/18 00:00 98.0 84 20 116/61 95 Room Air 98.0 01/14/18 23:42 116/61 01/14/18 22:00 100/62 01/14/18 21:13 102 100/62 01/14/18 20:00 98.9 102 20 100/62 96 Room Air 98.9 Height (Feet): 5 Height (Inches): 10.00 Weight (Pounds): 161 General Appearance: no acute distress HEENT: normocephalic, atraumatic, anicteric, mucous membranes moist Respiratory/Chest: lungs clear, normal breath sounds, no respiratory distress, no accessory muscle use Cardiovascular: normal rate, regular rhythm, no gallop/murmur, no JVD Abdomen: normal bowel sounds, soft, non tender, no organomegaly, non distended Genitourinary: other - + reagan - urine clear Extremities: no cyanosis Skin: no rash 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 Acute small area of right parietal infarct. No hemorrhage. No mass effect or midline shift. 2. Involutional changes with small vessel disease. Chest -x-ray - 01/01 and 01/04 - no consolidation Chest x-ray - 01/06 - copd, no consolidation identified, report noted CT - abdomen/pelvis - IMPRESSION: 1. The right psoas muscle is prominent when compared to the left. There is some mild infiltration of the fat adjacent to the right psoas muscle. Some mild increased density is suspected within the right psoas muscle. This is suspicious for a hematoma. The suspected hematoma cannot be from the adjacent musculature. The right psoas muscle and suspected hematoma together measure approximately 4.8 cm in maximum transverse dimensions. Evaluation for active bleeding cannot be performed without IV contrast. An infectious process or neoplastic process cannot be excluded radiographically. 2. Cardiomegaly. 3. Diverticulosis without evidence for diverticulitis. 01/06 - Chest x-ray - copd (report noted) 01/12 - chest x-ray; Findings: Pacemaker in the left anterior chest wall. There is no pneumothorax. There is blunting of the left costophrenic angle which is likely due to a small pleural effusion. Heart is enlarged. PICC line again noted. IMPRESSION: Pacemaker in good position. No pneumothorax Microbiology Date/Time Source Procedure Growth Status 01/13/18 19:15 Blood Blood Culture - Preliminary NO GROWTH AFTER 24 HOURS Resulted 01/13/18 19:00 Blood Blood Culture - Preliminary NO GROWTH AFTER 24 HOURS Resulted 01/13/18 16:40 Urine,Clean Catch Urine Culture - Final NO GROWTH AFTER 48 HOURS Complete Laboratory Tests Test 01/15/18 06:20 White Blood Count 18.2 K/UL (4.8-10.8) H Red Blood Count 3.82 M/UL (4.70-6.10) L Hemoglobin 10.9 G/DL (14.2-18.0) L Hematocrit 34.6 % (42.0-52.0) L Mean Corpuscular Volume 91 FL (80-99) Mean Corpuscular Hemoglobin 28.5 PG (27.0-31.0) Mean Corpuscular Hemoglobin Concent 31.5 G/DL (32.0-36.0) L Red Cell Distribution Width 15.3 % (11.6-14.8) H Platelet Count 160 K/UL (150-450) Mean Platelet Volume 10.3 FL (6.5-10.1) H Neutrophils (%) (Auto) % (45.0-75.0) Lymphocytes (%) (Auto) % (20.0-45.0) Monocytes (%) (Auto) % (1.0-10.0) Eosinophils (%) (Auto) % (0.0-3.0) Basophils (%) (Auto) % (0.0-2.0) Differential Total Cells Counted 100 Neutrophils % (Manual) 86 % (45-75) H Lymphocytes % (Manual) 7 % (20-45) L Monocytes % (Manual) 7 % (1-10) Eosinophils % (Manual) 0 % (0-3) Basophils % (Manual) 0 % (0-2) Band Neutrophils 0 % (0-8) Platelet Estimate Adequate Platelet Morphology Normal Anisocytosis 1+ Sodium Level 142 MMOL/L (136-145) Potassium Level 3.3 MMOL/L (3.5-5.1) L Chloride Level 105 MMOL/L (98-107) Carbon Dioxide Level 26 MMOL/L (21-32) Anion Gap 11 mmol/L (5-15) Blood Urea Nitrogen 30 mg/dL (7-18) H Creatinine 2.7 MG/DL (0.55-1.30) H Estimat Glomerular Filtration Rate mL/min (>60) Glucose Level 108 MG/DL (74-106) H Calcium Level 9.2 MG/DL (8.5-10.1) Total Bilirubin 0.7 MG/DL (0.2-1.0) Aspartate Amino Transf (AST/SGOT) 38 U/L (15-37) H Alanine Aminotransferase (ALT/SGPT) 15 U/L (12-78) Alkaline Phosphatase 48 U/L (46-116) Total Protein 6.8 G/DL (6.4-8.2) Albumin 2.2 G/DL (3.4-5.0) L Globulin 4.6 g/dL Albumin/Globulin Ratio 0.5 (1.0-2.7) L Current Medications Medications (Trade) Dose Ordered Sig/Denny Route PRN Reason Start Time Stop Time Status Last Admin Dose Admin Acetaminophen (Tylenol) 650 mg Q4H PRN ORAL T>100.5, MILD PAIN (1-3) 01/14/18 18:21 01/31/18 18:20 Acetaminophen (Tylenol) 650 mg Q6H PRN ORAL HEADACHE 01/14/18 18:20 02/11/18 18:19 Acetaminophen/ Codeine Phosphate (Tylenol #3) 1 tab Q4H PRN ORAL Moderate Pain (Pain Scale 4-6) 01/14/18 18:21 01/19/18 18:20 Allopurinol (Allopurinol) 300 mg DAILY ORAL 01/15/18 09:00 02/03/18 08:59 01/15/18 09:08 Aspirin (ASA) 81 mg DAILY ORAL 01/16/18 09:00 02/15/18 08:59 Atorvastatin Calcium (Lipitor) 80 mg BEDTIME ORAL 01/14/18 21:00 02/03/18 20:59 01/14/18 21:13 Carvedilol (Coreg) 3.125 mg EVERY 12 HOURS ORAL 01/14/18 21:00 01/31/18 20:59 01/14/18 21:13 Cefepime HCl 1 gm/ Dextrose 110 ml @ 220 mls/hr Q24H IVPB 01/15/18 17:00 01/22/18 23:59 01/15/18 17:34 Chlorhexidine Gluconate (Caitlin-Hex 2%) 1 applic DAILY@2000 TOPIC 01/14/18 20:00 02/01/18 19:59 01/14/18 21:16 Dextrose (Dextrose 50%) 25 ml STAT PRN IV Hypoglycemia 01/14/18 18:23 02/13/18 18:22 Dextrose (Dextrose 50%) 50 ml STAT PRN IV Hypoglycemia 01/14/18 18:23 02/13/18 18:22 Furosemide (Lasix) 40 mg DAILY IV 01/15/18 09:00 02/03/18 20:59 01/15/18 09:07 Heparin Sodium (Porcine) (Heparin 5000 units/ml) 5,000 units EVERY 12 HOURS SUBQ 01/14/18 21:00 02/03/18 20:59 01/15/18 13:06 Hydralazine HCl (Apresoline) 50 mg Q8HR ORAL 01/14/18 22:00 01/31/18 13:59 01/15/18 13:09 Insulin Aspart (NovoLOG) BEFORE MEALS AND HS SUBQ 01/14/18 21:00 02/03/18 16:29 01/15/18 17:35 Isosorbide Dinitrate (Isordil) 10 mg Q6HR ORAL 01/15/18 00:00 01/31/18 17:59 01/15/18 17:32 Linezolid 300 ml @ 300 mls/hr EVERY 12 HOURS IVPB 01/14/18 21:00 01/21/18 23:59 01/15/18 09:08 Metronidazole 100 ml @ 100 mls/hr Q8HR IVPB 01/14/18 22:00 01/21/18 23:59 01/15/18 13:09 Olanzapine (ZyPREXA) 2.5 mg HSPRN PRN ORAL Agitation 01/14/18 18:24 02/13/18 18:23 Ondansetron HCl (Zofran) 4 mg Q6H PRN IVP Nausea & Vomiting 01/14/18 18:24 02/11/18 18:23 Pantoprazole (Protonix) 40 mg EVERY 12 HOURS ORAL 01/14/18 21:00 01/31/18 20:59 01/15/18 09:08 Tamsulosin HCl (Flomax) 0.4 mg Q12HR ORAL 01/15/18 09:00 02/14/18 08:59 01/15/18 09:08 Ted Gonzalez MD Jan 15, 2018 18:48
[2018-01-15] MEDS: Fluconazole 100mg tab ORAL SCH (19:59)
[2018-01-15] MEDS: Dyna-Hex 2% Top Sol 2oz TOPIC SCH (19:59)
[2018-01-15 20:00] VITALS: BP 125/60
[2018-01-15] MEDS: Atorvastatin 80mg tab ORAL SCH (20:44)
[2018-01-15] MEDS: metroNIDAZOLE 500mg tab ORAL SCH (22:13)
--- NOTE | 2018-01-15 22:46 | General Progress Note ---
Assessment/Plan Assessment/Plan -ativan prn -zyprexa prn encephalopathy resolved Subjective Date patient seen: Jan 15, 2018 Neurologic/Psychiatric: Reports: anxiety, depressed, emotional problems Allergies: Coded Allergies: No Known Allergies (Unverified , 01/09/14) Subjective the pt is doing well Objective Last 24 Hour Vital Signs Date Time Temp Pulse Resp B/P (MAP) Pulse Ox O2 Delivery O2 Flow Rate FiO2 01/15/18 22:14 118/62 01/15/18 20:44 87 125/60 01/15/18 20:00 98.9 87 19 125/60 96 Room Air 98.9 01/15/18 17:32 104/53 01/15/18 16:00 97.8 87 20 104/53 95 Room Air 97.8 01/15/18 13:09 115/68 01/15/18 13:04 109/60 01/15/18 12:00 98.0 88 20 115/61 95 Room Air 98.0 01/15/18 09:00 87 109/60 01/15/18 08:00 97.9 87 20 109/60 95 Room Air 97.9 01/15/18 06:24 107/68 01/15/18 06:00 107/68 01/15/18 04:00 98.3 86 20 114/68 97 Room Air 98.3 01/15/18 00:00 98.0 84 20 116/61 95 Room Air 98.0 01/14/18 23:42 116/61 Intake and Output 01/14/18 01/15/18 19:00 07:00 Intake Total 670.0 ml 520 ml Output Total 500 ml 200 ml Balance 170.0 ml 320 ml Intake Oral 240 ml 120 ml IV Total 430.0 ml 400 ml Output Urine Total 500 ml 200 ml # Bowel Movements 2 1 Laboratory Tests 01/15/18 06:20: White Blood Count 18.2H, Red Blood Count 3.82L, Hemoglobin 10.9L, Hematocrit 34.6L, Mean Corpuscular Volume 91, Mean Corpuscular Hemoglobin 28.5, Mean Corpuscular Hemoglobin Concent 31.5L, Red Cell Distribution Width 15.3H, Platelet Count 160, Mean Platelet Volume 10.3H, Neutrophils (%) (Auto) , Lymphocytes (%) (Auto) , Monocytes (%) (Auto) , Eosinophils (%) (Auto) , Basophils (%) (Auto) , Differential Total Cells Counted 100, Neutrophils % ( Manual) 86H, Lymphocytes % (Manual) 7L, Monocytes % (Manual) 7, Eosinophils % ( Manual) 0, Basophils % (Manual) 0, Band Neutrophils 0, Platelet Estimate Adequate, Platelet Morphology Normal, Anisocytosis 1+, Sodium Level 142, Potassium Level 3.3L, Chloride Level 105, Carbon Dioxide Level 26, Anion Gap 11 , Blood Urea Nitrogen 30H, Creatinine 2.7H, Estimat Glomerular Filtration Rate , Glucose Level 108H, Calcium Level 9.2, Total Bilirubin 0.7, Aspartate Amino Transf (AST/SGOT) 38H, Alanine Aminotransferase (ALT/SGPT) 15, Alkaline Phosphatase 48, Total Protein 6.8, Albumin 2.2L, Globulin 4.6, Albumin/Globulin Ratio 0.5L Height (Feet): 5 Height (Inches): 10.00 Weight (Pounds): 161 Ralph Alva M.D. Jan 15, 2018 22:46
[2018-01-16] VITALS: BP 126/59
[2018-01-16 04:00] VITALS: BP 121/65
[2018-01-16] MEDS: metroNIDAZOLE 500mg tab ORAL SCH ×3 (06:02→22:24)
[2018-01-16] MEDS: HydrALAZINE 50mg tab ORAL SCH ×3 (06:02→22:25)
[2018-01-16] MEDS: NovoLOG Insulin Flexpen SUBQ SCH ×4 (06:04→20:54)
[2018-01-16 08:00] VITALS: BP 100/48
[2018-01-16 08:46] LABS: BASOPHILS % (AUTO) 0.7 % (0.0-2.0); EOSINOPHILS % (AUTO) 1.4 % (0.0-3.0); HEMOGLOBIN 10.7 G/DL (14.2-18.0); LYMPHOCYTES % (AUTO) 7.5 % (20.0-45.0); MEAN CORPUSCULAR VOLUME 90 FL (80-99); MONOCYTES % (AUTO) 8.2 % (1.0-10.0); NEUTROPHILS % (AUTO) 82.3 % (45.0-75.0); PLATELET COUNT 145 K/UL (150-450); RED BLOOD COUNT 3.56 M/UL (4.70-6.10); WHITE BLOOD COUNT 16.3 K/UL (4.8-10.8)
[2018-01-16 09:18] LABS: ANION GAP 11 mmol/L (5-15); BLOOD UREA NITROGEN 29 mg/dL (7-18); CALCIUM 8.7 MG/DL (8.5-10.1); CARBON DIOXIDE 26 MMOL/L (21-32); CHLORIDE 105 MMOL/L (98-107); CREATININE 2.5 MG/DL (0.55-1.30); POTASSIUM 3.3 MMOL/L (3.5-5.1); SODIUM 142 MMOL/L (136-145)
[2018-01-16] MEDS: Tamsulosin 0.4mg cap ORAL SCH ×2 (09:46→20:46)
[2018-01-16] MEDS: Aspirin Baby 81mg ORAL SCH (09:47)
[2018-01-16] MEDS ORDERED: Tubing IV Secondary IV ONE (10:49)
[2018-01-16] MEDS ORDERED: NS 275ml ONE (10:49)
[2018-01-16] MEDS: Heparin 5000 units/ml inj SUBQ SCH ×2 (12:42→20:52)
[2018-01-16 13:00] VITALS: BP 133/79
--- NOTE | 2018-01-16 13:24 | Neurology Progress Note ---
Interim History Interim History Interim History Mr. Winslow feels better. The AICD implant site is less painful. The mind is clear. He says he is eating well. His left side is still significantly weak but getting better. He is able to see well on his left side. He is aware of his left sided deficits. He however is still neglecting the left side. He has noted no new neurologic symptoms. Review of Systems Neuro Review of Systems Benign. Objective Physical Exam Last Vital Signs Date Time Temp Pulse Resp B/P (MAP) Pulse Ox O2 Delivery O2 Flow Rate FiO2 01/16/18 13:05 133/79 01/16/18 13:00 97.7 87 20 96 Room Air 97.7 01/13/18 11:25 3.0 Laboratory Tests Test 01/16/18 06:17 White Blood Count 16.3 K/UL (4.8-10.8) H Red Blood Count 3.56 M/UL (4.70-6.10) L Hemoglobin 10.7 G/DL (14.2-18.0) L Hematocrit 32.0 % (42.0-52.0) L Mean Corpuscular Volume 90 FL (80-99) Mean Corpuscular Hemoglobin 29.9 PG (27.0-31.0) Mean Corpuscular Hemoglobin Concent 33.3 G/DL (32.0-36.0) Red Cell Distribution Width 15.0 % (11.6-14.8) H Platelet Count 145 K/UL (150-450) L Mean Platelet Volume 10.9 FL (6.5-10.1) H Neutrophils (%) (Auto) 82.3 % (45.0-75.0) H Lymphocytes (%) (Auto) 7.5 % (20.0-45.0) L Monocytes (%) (Auto) 8.2 % (1.0-10.0) Eosinophils (%) (Auto) 1.4 % (0.0-3.0) Basophils (%) (Auto) 0.7 % (0.0-2.0) Sodium Level 142 MMOL/L (136-145) Potassium Level 3.3 MMOL/L (3.5-5.1) L Chloride Level 105 MMOL/L (98-107) Carbon Dioxide Level 26 MMOL/L (21-32) Anion Gap 11 mmol/L (5-15) Blood Urea Nitrogen 29 mg/dL (7-18) H Creatinine 2.5 MG/DL (0.55-1.30) H Estimat Glomerular Filtration Rate mL/min (>60) Glucose Level 102 MG/DL (74-106) Calcium Level 8.7 MG/DL (8.5-10.1) Neurologic Exam Objective PHYSICAL EXAMINATION: GENERAL: He is a well-developed relatively well-nourished black gentleman, lying in bed, in no acute distress. HEAD: Normocephalic and atraumatic. NECK: No neck rigidity was observed. EENT: Examination benign. NEUROLOGICAL EXAMINATION: MENTAL STATUS EXAMINATION: He was awake and alert. He was oriented to person, place, and time except for the exact date. He was able to recall 3/3 words immediately after 1 minute and after 3 minutes on the second trial. He was able to remember presidents, Trump through [employer]. His mathematical skills were fairly good. His visuospatial function was preserved. SPEECH: He had a mild dysarthria. LANGUAGE: He had no aphasia. CRANIAL NERVES EXAMINATION: II: The visual field were full on confrontation testing. III, IV & : External ocular movements were full and the pupils 3 mm in diameter, equal, round, regular, and reactive to light. V: He had normal facial sensations and the temporales, masseters, and pterygoids functioned normally. VII: He had left seventh central facial paresis. VIII: He was able to hear well bilaterally and had no nystagmus. IX: The palate moved symmetrically on phonation. X: He had no hoarseness of voice. XI: The sternocleidomastoids and trapezii functioned normally. XII: The tongue was in the midline without any fasciculations or atrophy. MOTOR SYSTEM: The tone was normal on the right side and diminished on the left side. Examination of muscle mass revealed no focal wasting. Examination of power revealed G 5/5 power in the right upper extremity. In the right lower extremity he also had G 5/5 power except for G 5-/5 power in the iliopsoas. On the left side, he had G 2/5 in the deltoid, G 1/5 in the biceps, G 0/5 in the triceps, G 0/5 in the wrist and fingers, G 3/5 in the hip rotators, G 4/5 in the quadriceps, hamstrings, ankle plantar flexors and toe flexors, and G 3/5 in the ankle dorsiflexors and toe extensors. SENSORY EXAMINATION: He tended to neglect his left side minimally. He made errors on testing for pinprick and light touch over his entire left body. In addition, he had normal graphesthesia on the right side and agraphesthesia on the left side. REFLEXES: 1+ on the right and 2++ on the left at the biceps, triceps, brachioradialis and knees. 0 at both ankles. The plantar response was flexor on the right and extensor on the left. COORDINATION: He performed well on [id number] testing on the right side. He was unable to perform on the left side. He was unable to perform [id number] testing bilaterally. STANCE & GAIT: Could not be tested. Impression/Recommendations Diagnostic Impression 1. Mr Agnes Winslow is a 77-year-old, right-handed, black gentleman, who does have a past history of hypertension, chronic kidney disease, cardiomyopathy, severe congestive heart failure with an ejection fraction at 15% in the near past and asthma. On 01/01/2018, he suddenly developed left-sided weakness. He was brought into the [facility] emergency room, diagnosed with a left brain stroke, and given tPA. Following that he became significantly weaker on his left side, has developed left-sided neglect, and some visual problems on that side. 2. He feels better. The AICD implant site is less painful. The mind is clear. He says he is eating well. His left side is still significantly weak but getting better. He is able to see well on his left side. He is aware of his left sided deficits. He however is still neglecting the left side. He has noted no new neurologic symptoms. 3. On neurological examination at this time, he is mildly disoriented, has mild problems with memory, has a mild dysarthria, he has a left seventh central facial paresis, a significant left hemiparesis, right proximal lower extremity weakness, a left hemisensory deficit and agraphesthesia, loss of deep tendon reflexes in the upper extremities with a brisk left knee jerk and extensor plantar response on the left side. 4. The CT scan of the brain without contrast performed on 01/01/2018 was read as being normal. 5. An MRI scan of the brain performed on 01/01/2018 revealed "an acute small area of right parietal infarct, but no other pathology". 6. The repeat CT of the brain done on 01/03/18 revealed an acute infarct in the right frontal and temporal lobes. No associated acute hemorrhage. 7. The carotid duplex scan was reported as being within normal limits. 8. 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 His neurologic function was improving. However his weakness got worse following the AICD implant and has improved minimally since then but is still not at his pre-AICD baseline. Recommendations 1. Continue present management. 2. Physical, occupational and speech and language therapy. 3. Consider acute rehabilitation. 4. ASA 81 mg q day. 7. Continue Lipitor with LDL goal of <70. Arun Lara M.D., M.S.P.H. ARUN LARA Jan 16, 2018 13:24
--- NOTE | 2018-01-16 15:06 | Infectious Diseases Prog Note ---
Assessment/Plan Assessment/Plan ASSESSMENT AND PLAN: 1. leukocytosis, ? sepsis, valeria, recent steroids, s/p defibrillator recently, fungemia risk - leukocytosis persists but slightly better, s/p defibrillator, ? post- procedure inflammatory responsive, no fevers, urine culture negative, blood culture negative - flagyl, zyvox and cefepime, diflucan - ct without obvious abscess mentioned, ? hematoma - wbc scan pending, check f/u labs - if wbc scan negative then consider discontinuing antibiotics 2. The patient has elevated creatinine with acute kidney injury, chronic renal failure, and anemia. 3. Acute cerebrovascular accident per history and exam + MRI noted - treatment per primary team and neurology, tpa given 4. Chronic obstructive pulmonary disease and asthma exacerbation. 5. Shortness of breath. 6. Steroids. 7. Congestive heart failure. 8. Leg edema. 9. Hypertension. 10. Blood pressure treatment per primary consultants. 11. No known allergies. 12. Social history negative. 13. Family history noncontributory. 14. MAR was noted. 15. Case discussed with RN. 16. Case discussed and communicated with Diane Silva NP for Dr. Holliday. 17. Continue treatment per primary consultants. 18. Notes and records were noted. 19. Orders were entered and communicated. 20. Case was discussed the patient's family. 21. We will follow with you. Subjective Constitutional: Denies: fever HEENT: Denies: congestion Respiratory: Denies: shortness of breath Cardiovascular: Denies: chest pain Gastrointestinal/Abdominal: Denies: nausea Genitourinary: Reports: other - + reagan Neurologic: Denies: headache Psychiatric: Denies: depression Skin: Denies: rash Hematologic: Denies: bleeding Musculoskeletal: Denies: pain Allergies: Coded Allergies: No Known Allergies (Unverified , 01/09/14) Objective Vital Signs Last 24 Hour Vital Signs Date Time Temp Pulse Resp B/P (MAP) Pulse Ox O2 Delivery O2 Flow Rate FiO2 01/16/18 13:05 133/79 01/16/18 13:00 97.7 87 20 133/79 96 Room Air 97.7 01/16/18 12:43 100/48 01/16/18 09:00 86 100/48 01/16/18 08:00 97.7 86 20 100/48 93 Room Air 97.7 01/16/18 06:02 121/65 01/16/18 06:02 121/65 01/16/18 04:00 98.4 87 19 121/65 97 Room Air 98.4 01/16/18 00:14 126/59 01/16/18 00:00 98.6 80 19 126/59 96 Room Air 98.6 01/15/18 22:14 118/62 01/15/18 20:44 87 125/60 01/15/18 20:00 98.9 87 19 125/60 96 Room Air 98.9 01/15/18 17:32 104/53 01/15/18 16:00 97.8 87 20 104/53 95 Room Air 97.8 Height (Feet): 5 Height (Inches): 10.00 Weight (Pounds): 165 General Appearance: no acute distress HEENT: normocephalic, atraumatic, anicteric, mucous membranes moist Respiratory/Chest: lungs clear, normal breath sounds, no respiratory distress, no accessory muscle use Cardiovascular: normal rate, regular rhythm, no gallop/murmur, no JVD Abdomen: normal bowel sounds, soft, non tender, no organomegaly, non distended Genitourinary: other - no reagan Extremities: no cyanosis Skin: no rash Neurologic/Psychiatric: 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 Acute small area of right parietal infarct. No hemorrhage. No mass effect or midline shift. 2. Involutional changes with small vessel disease. Chest -x-ray - 01/01 and 01/04 - no consolidation Chest x-ray - 01/06 - copd, no consolidation identified, report noted CT - abdomen/pelvis - IMPRESSION: 1. The right psoas muscle is prominent when compared to the left. There is some mild infiltration of the fat adjacent to the right psoas muscle. Some mild increased density is suspected within the right psoas muscle. This is suspicious for a hematoma. The suspected hematoma cannot be from the adjacent musculature. The right psoas muscle and suspected hematoma together measure approximately 4.8 cm in maximum transverse dimensions. Evaluation for active bleeding cannot be performed without IV contrast. An infectious process or neoplastic process cannot be excluded radiographically. 2. Cardiomegaly. 3. Diverticulosis without evidence for diverticulitis. 01/06 - Chest x-ray - copd (report noted) 01/12 - chest x-ray; Findings: Pacemaker in the left anterior chest wall. There is no pneumothorax. There is blunting of the left costophrenic angle which is likely due to a small pleural effusion. Heart is enlarged. PICC line again noted. IMPRESSION: Pacemaker in good position. No pneumothorax Microbiology Date/Time Source Procedure Growth Status 01/13/18 19:15 Blood Blood Culture - Preliminary NO GROWTH AFTER 48 HOURS Resulted 01/13/18 19:00 Blood Blood Culture - Preliminary NO GROWTH AFTER 48 HOURS Resulted 01/13/18 16:40 Urine,Clean Catch Urine Culture - Final NO GROWTH AFTER 48 HOURS Complete Laboratory Tests Test 01/16/18 06:17 White Blood Count 16.3 K/UL (4.8-10.8) H Red Blood Count 3.56 M/UL (4.70-6.10) L Hemoglobin 10.7 G/DL (14.2-18.0) L Hematocrit 32.0 % (42.0-52.0) L Mean Corpuscular Volume 90 FL (80-99) Mean Corpuscular Hemoglobin 29.9 PG (27.0-31.0) Mean Corpuscular Hemoglobin Concent 33.3 G/DL (32.0-36.0) Red Cell Distribution Width 15.0 % (11.6-14.8) H Platelet Count 145 K/UL (150-450) L Mean Platelet Volume 10.9 FL (6.5-10.1) H Neutrophils (%) (Auto) 82.3 % (45.0-75.0) H Lymphocytes (%) (Auto) 7.5 % (20.0-45.0) L Monocytes (%) (Auto) 8.2 % (1.0-10.0) Eosinophils (%) (Auto) 1.4 % (0.0-3.0) Basophils (%) (Auto) 0.7 % (0.0-2.0) Sodium Level 142 MMOL/L (136-145) Potassium Level 3.3 MMOL/L (3.5-5.1) L Chloride Level 105 MMOL/L (98-107) Carbon Dioxide Level 26 MMOL/L (21-32) Anion Gap 11 mmol/L (5-15) Blood Urea Nitrogen 29 mg/dL (7-18) H Creatinine 2.5 MG/DL (0.55-1.30) H Estimat Glomerular Filtration Rate mL/min (>60) Glucose Level 102 MG/DL (74-106) Calcium Level 8.7 MG/DL (8.5-10.1) Current Medications Medications (Trade) Dose Ordered Sig/Denny Route PRN Reason Start Time Stop Time Status Last Admin Dose Admin Acetaminophen (Tylenol) 650 mg Q4H PRN ORAL T>100.5, MILD PAIN (1-3) 01/14/18 18:21 01/31/18 18:20 Acetaminophen (Tylenol) 650 mg Q6H PRN ORAL HEADACHE 01/14/18 18:20 02/11/18 18:19 Acetaminophen/ Codeine Phosphate (Tylenol #3) 1 tab Q4H PRN ORAL Moderate Pain (Pain Scale 4-6) 01/14/18 18:21 01/19/18 18:20 Allopurinol (Allopurinol) 300 mg DAILY ORAL 01/15/18 09:00 02/03/18 08:59 01/16/18 09:47 Aspirin (ASA) 81 mg DAILY ORAL 01/16/18 09:00 02/15/18 08:59 01/16/18 09:47 Atorvastatin Calcium (Lipitor) 80 mg BEDTIME ORAL 01/14/18 21:00 02/03/18 20:59 01/15/18 20:44 Carvedilol (Coreg) 3.125 mg EVERY 12 HOURS ORAL 01/14/18 21:00 01/31/18 20:59 01/15/18 20:44 Cefepime HCl 1 gm/ Dextrose 110 ml @ 220 mls/hr Q24H IVPB 01/15/18 17:00 01/22/18 23:59 01/15/18 17:34 Chlorhexidine Gluconate (Caitlin-Hex 2%) 1 applic DAILY@2000 TOPIC 01/14/18 20:00 02/01/18 19:59 01/15/18 19:59 Dextrose (Dextrose 50%) 25 ml STAT PRN IV Hypoglycemia 01/14/18 18:23 02/13/18 18:22 Dextrose (Dextrose 50%) 50 ml STAT PRN IV Hypoglycemia 01/14/18 18:23 02/13/18 18:22 Fluconazole (Diflucan) 200 mg DAILY@2000 ORAL 01/15/18 20:00 01/22/18 19:59 01/15/18 19:59 Furosemide (Lasix) 40 mg DAILY IV 01/15/18 09:00 02/03/18 20:59 01/16/18 09:47 Heparin Sodium (Porcine) (Heparin 5000 units/ml) 5,000 units EVERY 12 HOURS SUBQ 01/14/18 21:00 02/03/18 20:59 01/16/18 12:42 Hydralazine HCl (Apresoline) 50 mg Q8HR ORAL 01/14/18 22:00 01/31/18 13:59 01/16/18 13:05 Insulin Aspart (NovoLOG) BEFORE MEALS AND HS SUBQ 01/14/18 21:00 02/03/18 16:29 01/16/18 12:48 Isosorbide Dinitrate (Isordil) 10 mg Q6HR ORAL 01/15/18 00:00 01/31/18 17:59 01/16/18 12:43 Linezolid 300 ml @ 300 mls/hr EVERY 12 HOURS IVPB 01/14/18 21:00 01/21/18 23:59 01/16/18 09:46 Metronidazole (Flagyl) 500 mg EVERY 8 HOURS ORAL 01/15/18 22:00 01/22/18 21:59 01/16/18 13:05 Olanzapine (ZyPREXA) 2.5 mg HSPRN PRN ORAL Agitation 01/14/18 18:24 02/13/18 18:23 Ondansetron HCl (Zofran) 4 mg Q6H PRN IVP Nausea & Vomiting 01/14/18 18:24 02/11/18 18:23 Pantoprazole (Protonix) 40 mg EVERY 12 HOURS ORAL 01/14/18 21:00 01/31/18 20:59 01/16/18 09:47 Tamsulosin HCl (Flomax) 0.4 mg Q12HR ORAL 01/15/18 09:00 02/14/18 08:59 01/16/18 09:46 Ted Gonzalez MD Jan 16, 2018 15:06
--- NOTE | 2018-01-16 15:32 | Nephrology Progress Note ---
Assessment/Plan Problem List: (1) CKD (chronic kidney disease) (2) CHF (congestive heart failure) (3) Cardiomyopathy (4) Proteinuria Assessment Cr 2.5 WBCs elevated CKD- chronic systolic heart failure Right heart failuer Edema due to above and possible venous insuf Non-ischemic cardiomyopathy no cad by cath 2016 History of DVT pulmonary HTN h/o Thrombocytopenia HTN Proteinuria previous echo: Severe global left ventricular hypokinesis with septal thinning. Left ventricular ejection fraction estimated to be 10-15 %. Plan Per ID- mag and K supplement as needed Optimize cardiac status, monitor renal parameters Avoid nephrotoxics per orders Subjective ROS Limited/Unobtainable: No Constitutional: Reports: malaise, weakness Objective Objective Last 24 Hour Vital Signs Date Time Temp Pulse Resp B/P (MAP) Pulse Ox O2 Delivery O2 Flow Rate FiO2 01/16/18 13:05 133/79 01/16/18 13:00 97.7 87 20 133/79 96 Room Air 97.7 01/16/18 12:43 100/48 01/16/18 09:00 86 100/48 01/16/18 08:00 97.7 86 20 100/48 93 Room Air 97.7 01/16/18 06:02 121/65 01/16/18 06:02 121/65 01/16/18 04:00 98.4 87 19 121/65 97 Room Air 98.4 01/16/18 00:14 126/59 01/16/18 00:00 98.6 80 19 126/59 96 Room Air 98.6 01/15/18 22:14 118/62 01/15/18 20:44 87 125/60 01/15/18 20:00 98.9 87 19 125/60 96 Room Air 98.9 01/15/18 17:32 104/53 01/15/18 16:00 97.8 87 20 104/53 95 Room Air 97.8 Intake and Output 01/15/18 01/16/18 19:00 07:00 Intake Total 870 ml 420 ml Output Total 250 ml 150 ml Balance 620 ml 270 ml Intake Oral 360 ml 120 ml IV Total 510 ml 300 ml Output Urine Total 250 ml 150 ml # Voids 1 # Bowel Movements 2 Laboratory Tests 01/16/18 06:17: White Blood Count 16.3H, Red Blood Count 3.56L, Hemoglobin 10.7L, Hematocrit 32.0L, Mean Corpuscular Volume 90, Mean Corpuscular Hemoglobin 29.9, Mean Corpuscular Hemoglobin Concent 33.3, Red Cell Distribution Width 15.0H, Platelet Count 145L, Mean Platelet Volume 10.9H, Neutrophils (%) (Auto) 82.3H, Lymphocytes (%) (Auto) 7.5L, Monocytes (%) (Auto) 8.2, Eosinophils (%) (Auto) 1.4, Basophils (%) (Auto) 0.7, Sodium Level 142, Potassium Level 3.3L, Chloride Level 105, Carbon Dioxide Level 26, Anion Gap 11, Blood Urea Nitrogen 29H, Creatinine 2.5H, Estimat Glomerular Filtration Rate , Glucose Level 102, Calcium Level 8.7 Height (Feet): 5 Height (Inches): 10.00 Weight (Pounds): 165 General Appearance: no apparent distress Respiratory/Chest: decreased breath sounds Abdomen: soft Objective no other change BHARATHI LOVE Jan 16, 2018 15:32
[2018-01-16 16:00] VITALS: BP 107/59
--- NOTE | 2018-01-16 16:15 | General Progress Note ---
Assessment/Plan Problem List: (1) CKD (chronic kidney disease) ICD Codes: N18.9 - CKD (chronic kidney disease) SNOMED: 539474702 Qualifiers: Qualified Codes: N18.9 - Chronic kidney disease, unspecified (2) HTN (hypertension) ICD Codes: I10 - HTN (hypertension) SNOMED: 25916604 (3) CHF (congestive heart failure) ICD Codes: I50.9 - CHF (congestive heart failure) SNOMED: 00206446 (4) Respiratory distress ICD Codes: R06.00 - Dyspnea, unspecified SNOMED: 790471122 (5) Dyspnea ICD Codes: R06.00 - Dyspnea, unspecified SNOMED: 607343596 (6) Asthma exacerbation ICD Codes: J45.901 - Unspecified asthma with (acute) exacerbation SNOMED: 912062948 (7) FIONA (acute kidney injury) ICD Codes: N17.9 - Acute kidney failure, unspecified SNOMED: 84305116 (8) CHF exacerbation ICD Codes: I50.9 - Heart failure, unspecified SNOMED: 52285549 Qualifiers: Qualified Codes: I50.9 - Heart failure, unspecified (9) CVA (cerebral vascular accident) ICD Codes: I63.9 - Cerebral infarction, unspecified SNOMED: 370900122 Qualifiers: Qualified Codes: I63.9 - Cerebral infarction, unspecified (10) Peripheral edema ICD Codes: R60.9 - Edema, unspecified SNOMED: 966649856 (11) Cardiomyopathy ICD Codes: I42.9 - Cardiomyopathy SNOMED: 54998629 (12) Malnutrition ICD Codes: E46 - Malnutrition SNOMED: 1730181 (13) Hypokalemia ICD Codes: E87.6 - Hypokalemia SNOMED: 90883409 (14) Prediabetes ICD Codes: R73.03 - Prediabetes SNOMED: 163979935 (15) HLD (hyperlipidemia) ICD Codes: E78.5 - Hyperlipidemia, unspecified SNOMED: 57962754 (16) Leukocytosis ICD Codes: D72.829 - Elevated white blood cell count, unspecified SNOMED: 517699713, 117459112 Status: stable, progressing Assessment/Plan #acute right parietal infarct - Neurology consulted, appreciate rec's - No need for transfer to stroke center at this time per neurology - NIH stroke scale last night was 2 prior to TPA. Repeat NIH stroke scale is 5 - s/p tPA given at 0300 on 01/01 - CT head on 01/01 at 0100 was negative. - MRI brain showing acute small right parietal infarct with no hemorrhage, midline shift, or mass effect - continue permissive hypertension to systolic 160-180s x 24 hours - MRA brain and neck without contrast showing attenuated appearance of the distal right middle cerebral artery likely due to technical issues. Also with short segment stenotic appearance of the right proximal ICA, cannot exclude high -grade stenosis. - carotid U/S negative - repeat CT with no bleed, showing acute infarct. also with some corresponding edema without significant mass effect --> start HSQ - ECHO with doppler showing 25-30% EF, pulmonary hypertension, and left ventricular hypokinesis - bilateral venous duplex negative - check lipid panel and A1c - ST/PT/OT eval - Passed swallow eval, on pureed. video swallow study done, f/u results - neurochecks q4hr - LDL 83. Start lipitor 80mg qhs - will start ASA 81mg after defibb placement #Acute asthma exacerbation - prednisone 40mg PO qd x 5 days (D5/5). discontinued as patient's wheezing resolved - duonebs ATC q6hr - ABGs #Sepsis/leukocytosis, unknown etiology - ID consulted, appreciate rec's - oncologist consulted, appreciate rec's --> given leukocytosis but no source/ etiology for infection - continue IV zosyn and diflucan per ID - CXR negative. Repeat CXR negative - trend CBC - WBC up to [address] a/p showing questionable hematoma. C. diff negative. f/ u urine cx. CXR negative. Blood cx NGTD. - f/u indium white blood cell scan, to be done on Wednesday #Acute on chronic systolic CHF / severe cardiomyopathy - cardiology consulted, appreciate rec's - strict I&O - 1.5 L fluid restriction - lasix 80mg IV BID --> lasix 60 IV BID --> lasix 40mg IV BID - permissive HTN with systolic 160-180s given acute CVA till 01/02 - dobutamine gtt titrated down to 1 mcg/min - s/p PICC line 01/03 - EF 25-30% - s/p biotronic dual chamber ICD implant on 01/12/18. Interrogated and showed normal function. #FIONA due to cardiorenal syndrome - nephrology consulted, appreciate rec's - trend Cr - check urine lytes - avoid IVF given CHF exacerbation #Hypokalemia - replete electrolytes prn. monitor BMP and Mg #HLD - start lipitor 80mg #Prediabetes - A1c 6.2 - will start MURIEL for now - will discharge patient on glipizide DC PLANNING TO [facility] IN AM IF CLEARED PER ID/HEMATOLOGY. F/U INDIUM SCAN ON WEDNESDAY. CLEARED PER CARDIOLOGY. DVT ppx: HSQ Discussed case in detail with nursing staff, case management, cardiology, nephrology, neurology, ID, patient, and family. Case d/w Dr. Holliday who agrees to the plan above. Disposition: [facility] (patient accepted to facility, family/patient agreeable) I spent a total of 40 minutes on this patient's case with greater than 50% spent on care and coordination of the patient. Subjective Date patient seen: Jan 16, 2018 Time patient seen: 16:13 Allergies: Coded Allergies: No Known Allergies (Unverified , 01/09/14) Subjective - S/P Biotronic dual chamber ICD implant, POD#4 - doing well. AF, HDS - WBC 18-->16 today - indium scan to be done Wednesday per RN - denies cp, sob, n/v, abdominal pain, f/c Objective Last 24 Hour Vital Signs Date Time Temp Pulse Resp B/P (MAP) Pulse Ox O2 Delivery O2 Flow Rate FiO2 01/16/18 13:05 133/79 01/16/18 13:00 97.7 87 20 133/79 96 Room Air 97.7 01/16/18 12:43 100/48 01/16/18 09:00 86 100/48 01/16/18 08:00 97.7 86 20 100/48 93 Room Air 97.7 01/16/18 06:02 121/65 01/16/18 06:02 121/65 01/16/18 04:00 98.4 87 19 121/65 97 Room Air 98.4 01/16/18 00:14 126/59 01/16/18 00:00 98.6 80 19 126/59 96 Room Air 98.6 01/15/18 22:14 118/62 6/2/18 20:44 87 125/60 01/15/18 20:00 98.9 87 19 125/60 96 Room Air 98.9 01/15/18 17:32 104/53 Intake and Output 01/15/18 01/16/18 19:00 07:00 Intake Total 870 ml 420 ml Output Total 250 ml 150 ml Balance 620 ml 270 ml Intake Oral 360 ml 120 ml IV Total 510 ml 300 ml Output Urine Total 250 ml 150 ml # Voids 1 # Bowel Movements 2 Laboratory Tests 01/16/18 06:17: White Blood Count 16.3H, Red Blood Count 3.56L, Hemoglobin 10.7L, Hematocrit 32.0L, Mean Corpuscular Volume 90, Mean Corpuscular Hemoglobin 29.9, Mean Corpuscular Hemoglobin Concent 33.3, Red Cell Distribution Width 15.0H, Platelet Count 145L, Mean Platelet Volume 10.9H, Neutrophils (%) (Auto) 82.3H, Lymphocytes (%) (Auto) 7.5L, Monocytes (%) (Auto) 8.2, Eosinophils (%) (Auto) 1.4, Basophils (%) (Auto) 0.7, Sodium Level 142, Potassium Level 3.3L, Chloride Level 105, Carbon Dioxide Level 26, Anion Gap 11, Blood Urea Nitrogen 29H, Creatinine 2.5H, Estimat Glomerular Filtration Rate , Glucose Level 102, Calcium Level 8.7 Height (Feet): 5 Height (Inches): 10.00 Weight (Pounds): 165 General Appearance: no apparent distress, alert EENT: PERRL/EOMI, normal ENT inspection Neck: non-tender, normal alignment, supple Cardiovascular: normal peripheral pulses, normal rate, regular rhythm, pacemaker/AICD Respiratory/Chest: chest wall non-tender, lungs clear, normal breath sounds Abdomen: normal bowel sounds, non tender, soft Neurologic: psychology technician II-XII grossly normal, abnormal gait, alert, oriented x 3, other Skin: normal pigmentation, warm/dry Diane Silva NP Jan 16, 2018 16:15
[2018-01-16] MEDS: Cefepime HCl 1 GM in D5W 110 ML IVPB SCH (18:31)
[2018-01-16 20:00] VITALS: BP 96/60
--- NOTE | 2018-01-16 20:33 | General Progress Note ---
Assessment/Plan Assessment/Plan #. Thrombocytopenia, potentially secondary to underlying medications versus infection. Has been seen by Cardiology Service, meds have been reviewed. Currently in the 100-150k range ---> hepatitis and hiv are negative, CT of the abdomen/pelvis is negative for cirrhosis or splenomegaly ---> transfuse if plt count ever <20k ---> no transfusion required #. Leukocytosis. Likely related to underlying ID issue. ? sepsis, ? reactive to cva, valeria, aspiration risk, abdomen benign, ? uti, ua with 1 + le and moderate bacteria but urine culture mixed, continues to persist --> Continue antibiotics as per primary team & Infectious Disease prn --> abx as per ID, antibiotics/diflucan on board #. Anemia due to underlying chronic disease. Continue to closely monitor. significantly improved --> at this time, hold off on extensive workup unless hgb less than 10 #. Acute cerebrovascular accident on MRI. Further management per neurology #. Shortness of breath seen by pulm --> appreciate recs #. Sepsis - ID service following --> appreciate their recs #. Hypertension. Elevated blood pressure. --> currently controlled --> further management per cards Subjective Date patient seen: Jan 15, 2018 HEENT: Denies: no symptoms, eye pain, blurred vision, tearing, double vision, ear pain, ear discharge, nose pain, nose congestion, throat pain, throat swelling, mouth pain, mouth swelling, other Cardiovascular: Denies: no symptoms, chest pain, edema, irregular heart rate, lightheadedness, palpitations, syncope, other Respiratory: Denies: no symptoms, cough, orthopnea, shortness of breath, SOB with excertion, SOB at rest, sputum, stridor, wheezing, other Gastrointestinal/Abdominal: Denies: no symptoms, abdomen distended, abdominal pain, black stools, tarry stools, blood in stool, constipated, diarrhea, difficulty swallowing, nausea, poor appetite, poor fluid intake, rectal bleeding , vomiting, other Genitourinary: Denies: no symptoms, burning, discharge, frequency, flank pain, hematuria, incontinence, pain, urgency, other Neurologic/Psychiatric: Denies: no symptoms, anxiety, depressed, emotional problems, headache, numbness, paresthesia, pre-existing deficit, seizure, tingling, tremors, weakness, other Endocrine: Denies: no symptoms, excessive sweating, flushing, intolerance to cold, intolerance to heat, increased hunger, increased thirst, increased urine, unexplained weight gain, unexplained weight loss, other Hematologic/Lymphatic: Denies: no symptoms, anemia, easy bleeding, easy bruising, other Allergies: Coded Allergies: No Known Allergies (Unverified , 01/09/14) Subjective no events overnight, tired Objective Last 24 Hour Vital Signs Date Time Temp Pulse Resp B/P (MAP) Pulse Ox O2 Delivery O2 Flow Rate FiO2 01/16/18 18:31 107/59 01/16/18 16:00 97.0 89 20 107/59 98 Room Air 97.0 01/16/18 13:05 133/79 01/16/18 13:00 97.7 87 20 133/79 96 Room Air 97.7 01/16/18 12:43 100/48 01/16/18 09:00 86 100/48 01/16/18 08:00 97.7 86 20 100/48 93 Room Air 97.7 01/16/18 06:02 121/65 01/16/18 06:02 121/65 01/16/18 04:00 98.4 87 19 121/65 97 Room Air 98.4 01/16/18 00:14 126/59 01/16/18 00:00 98.6 80 19 126/59 96 Room Air 98.6 01/15/18 22:14 118/62 01/15/18 20:44 87 125/60 Intake and Output 01/15/18 01/16/18 19:00 07:00 Intake Total 870 ml 420 ml Output Total 250 ml 150 ml Balance 620 ml 270 ml Intake Oral 360 ml 120 ml IV Total 510 ml 300 ml Output Urine Total 250 ml 150 ml # Voids 1 # Bowel Movements 2 Laboratory Tests 01/16/18 06:17: White Blood Count 16.3H, Red Blood Count 3.56L, Hemoglobin 10.7L, Hematocrit 32.0L, Mean Corpuscular Volume 90, Mean Corpuscular Hemoglobin 29.9, Mean Corpuscular Hemoglobin Concent 33.3, Red Cell Distribution Width 15.0H, Platelet Count 145L, Mean Platelet Volume 10.9H, Neutrophils (%) (Auto) 82.3H, Lymphocytes (%) (Auto) 7.5L, Monocytes (%) (Auto) 8.2, Eosinophils (%) (Auto) 1.4, Basophils (%) (Auto) 0.7, Sodium Level 142, Potassium Level 3.3L, Chloride Level 105, Carbon Dioxide Level 26, Anion Gap 11, Blood Urea Nitrogen 29H, Creatinine 2.5H, Estimat Glomerular Filtration Rate , Glucose Level 102, Calcium Level 8.7 Height (Feet): 5 Height (Inches): 10.00 Weight (Pounds): 165 General Appearance: no apparent distress EENT: normal ENT inspection Neck: normal alignment Cardiovascular: no gallop/murmur Abdomen: no organomegaly Genitourinary/Rectal: normal rectal exam Edema: mild edema Neurologic: abnormal gait Mahendra Marinelli MD Jan 16, 2018 20:33
[2018-01-16] MEDS: Fluconazole 100mg tab ORAL SCH (20:46)
[2018-01-16] MEDS: Dyna-Hex 2% Top Sol 2oz TOPIC SCH (20:46)
[2018-01-16] MEDS: Atorvastatin 80mg tab ORAL SCH (20:46)
[2018-01-17] VITALS: BP 116/71
[2018-01-17 04:00] VITALS: BP 122/65
[2018-01-17] MEDS: metroNIDAZOLE 500mg tab ORAL SCH ×3 (06:11→23:06)
[2018-01-17] MEDS: HydrALAZINE 50mg tab ORAL SCH ×3 (06:11→22:00)
[2018-01-17] MEDS: NovoLOG Insulin Flexpen SUBQ SCH ×4 (06:14→23:10)
[2018-01-17 07:08] LABS: BASOPHILS % (AUTO) 0.6 % (0.0-2.0); EOSINOPHILS % (AUTO) 1.5 % (0.0-3.0); HEMATOCRIT 32.3 % (42.0-52.0); HEMOGLOBIN 10.3 G/DL (14.2-18.0); LYMPHOCYTES % (AUTO) 8.9 % (20.0-45.0); MEAN CORPUSCULAR VOLUME 90 FL (80-99); PLATELET COUNT 154 K/UL (150-450); RED CELL DISTRIBUTION WIDTH 15.6 % (11.6-14.8); WHITE BLOOD COUNT 14.9 K/UL (4.8-10.8)
[2018-01-17 07:29] LABS: ANION GAP 11 mmol/L (5-15); BLOOD UREA NITROGEN 27 mg/dL (7-18); CALCIUM 9.2 MG/DL (8.5-10.1); CARBON DIOXIDE 25 MMOL/L (21-32); CHLORIDE 105 MMOL/L (98-107); CREATININE 2.4 MG/DL (0.55-1.30); POTASSIUM 3.3 MMOL/L (3.5-5.1); SODIUM 141 MMOL/L (136-145)
[2018-01-17 08:00] VITALS: BP 112/61
--- NOTE | 2018-01-17 08:14 | General Progress Note ---
Assessment/Plan Assessment/Plan #. Thrombocytopenia, potentially secondary to underlying medications versus infection. Has been seen by Cardiology Service, meds have been reviewed. Currently in the 100-150k range ---> hepatitis and hiv are negative, CT of the abdomen/pelvis is negative for cirrhosis or splenomegaly ---> transfuse if plt count ever <20k ---> no transfusion required #. Leukocytosis. Likely related to underlying ID issue. ? sepsis, ? reactive to cva, valeria, aspiration risk, abdomen benign, ? uti, ua with 1 + le and moderate bacteria but urine culture mixed, continues to persist --> Continue antibiotics as per primary team & Infectious Disease prn --> abx as per ID, antibiotics/diflucan on board #. Anemia due to underlying chronic disease. Continue to closely monitor. significantly improved --> at this time, hold off on extensive workup unless hgb less than 10 #. Acute cerebrovascular accident on MRI. Further management per neurology #. Shortness of breath seen by pulm --> appreciate recs #. Sepsis - ID service following --> appreciate their recs #. Hypertension. Elevated blood pressure. --> currently controlled --> further management per cards Subjective Date patient seen: Jan 16, 2018 HEENT: Denies: no symptoms, eye pain, blurred vision, tearing, double vision, ear pain, ear discharge, nose pain, nose congestion, throat pain, throat swelling, mouth pain, mouth swelling, other Cardiovascular: Denies: no symptoms, chest pain, edema, irregular heart rate, lightheadedness, palpitations, syncope, other Respiratory: Denies: no symptoms, cough, orthopnea, shortness of breath, SOB with excertion, SOB at rest, sputum, stridor, wheezing, other Gastrointestinal/Abdominal: Denies: no symptoms, abdomen distended, abdominal pain, black stools, tarry stools, blood in stool, constipated, diarrhea, difficulty swallowing, nausea, poor appetite, poor fluid intake, rectal bleeding , vomiting, other Genitourinary: Denies: no symptoms, burning, discharge, frequency, flank pain, hematuria, incontinence, pain, urgency, other Neurologic/Psychiatric: Denies: no symptoms, anxiety, depressed, emotional problems, headache, numbness, paresthesia, pre-existing deficit, seizure, tingling, tremors, weakness, other Endocrine: Denies: no symptoms, excessive sweating, flushing, intolerance to cold, intolerance to heat, increased hunger, increased thirst, increased urine, unexplained weight gain, unexplained weight loss, other Hematologic/Lymphatic: Denies: no symptoms, anemia, easy bleeding, easy bruising, other Allergies: Coded Allergies: No Known Allergies (Unverified , 01/09/14) Subjective tired, no major events overnight Objective Last 24 Hour Vital Signs Date Time Temp Pulse Resp B/P (MAP) Pulse Ox O2 Delivery O2 Flow Rate FiO2 01/17/18 06:12 122/65 01/17/18 06:11 122/65 01/17/18 04:00 98.4 89 20 122/65 96 Room Air 98.4 01/17/18 00:33 116/71 01/17/18 00:00 97.9 82 19 116/71 95 Room Air 97.9 01/16/18 22:25 130/71 01/16/18 20:49 86 96/60 01/16/18 20:00 98.0 86 20 96/60 100 Room Air 98.0 01/16/18 18:31 107/59 01/16/18 16:00 97.0 89 20 107/59 98 Room Air 97.0 01/16/18 13:05 133/79 01/16/18 13:00 97.7 87 20 133/79 96 Room Air 97.7 01/16/18 12:43 100/48 01/16/18 09:00 86 100/48 Intake and Output 01/16/18 01/17/18 19:00 07:00 Intake Total 200 ml 520 ml Output Total 400 ml 800 ml Balance -200 ml -280 ml Intake Oral 200 ml IV Total 520 ml Output Urine Total 400 ml 800 ml # Bowel Movements 1 Laboratory Tests 01/17/18 06:50: White Blood Count 14.9H, Red Blood Count 3.60L, Hemoglobin 10.3L, Hematocrit 32.3L, Mean Corpuscular Volume 90, Mean Corpuscular Hemoglobin 28.6, Mean Corpuscular Hemoglobin Concent 31.8L, Red Cell Distribution Width 15.6H, Platelet Count 154, Mean Platelet Volume 10.1, Neutrophils (%) (Auto) 82.0H, Lymphocytes (%) (Auto) 8.9L, Monocytes (%) (Auto) 7.0, Eosinophils (%) (Auto) 1.5, Basophils (%) (Auto) 0.6, Sodium Level 141, Potassium Level 3.3L, Chloride Level 105, Carbon Dioxide Level 25, Anion Gap 11, Blood Urea Nitrogen 27H, Creatinine 2.4H, Estimat Glomerular Filtration Rate , Glucose Level 123H, Calcium Level 9.2 Height (Feet): 5 Height (Inches): 10.00 Weight (Pounds): 165 General Appearance: no apparent distress EENT: TMs normal Cardiovascular: normal rate Respiratory/Chest: lungs clear, normal breath sounds Abdomen: no organomegaly Extremities: non-tender Edema: 1+ Leg (L), 1+ Leg (R) Neurologic: alert Skin: warm/dry Mahendra Marinelli MD Jan 17, 2018 08:14
[2018-01-17] MEDS: Tamsulosin 0.4mg cap ORAL SCH ×2 (08:44→23:06)
[2018-01-17] MEDS: Aspirin Baby 81mg ORAL SCH (08:44)
[2018-01-17] MEDS: Heparin 5000 units/ml inj SUBQ SCH ×2 (08:46→23:08)
--- NOTE | 2018-01-17 09:22 | Neurology Progress Note ---
Interim History Interim History Interim History Mr. Winslow feels better. The AICD implant site is still painful. The mind is clear. He says his appetite is poor and he is not eating well. His left side is still significantly weak but getting better. He is able to see well on his left side. He is aware of his left sided deficits. He however is still neglecting the left side. He has noted no new neurologic symptoms. Review of Systems Neuro Review of Systems Benign. Objective Physical Exam Last Vital Signs Date Time Temp Pulse Resp B/P (MAP) Pulse Ox O2 Delivery O2 Flow Rate FiO2 01/17/18 08:45 90 112/61 01/17/18 08:00 97.5 20 96 Room Air 97.5 01/13/18 11:25 3.0 Laboratory Tests Test 01/17/18 06:50 White Blood Count 14.9 K/UL (4.8-10.8) H Red Blood Count 3.60 M/UL (4.70-6.10) L Hemoglobin 10.3 G/DL (14.2-18.0) L Hematocrit 32.3 % (42.0-52.0) L Mean Corpuscular Volume 90 FL (80-99) Mean Corpuscular Hemoglobin 28.6 PG (27.0-31.0) Mean Corpuscular Hemoglobin Concent 31.8 G/DL (32.0-36.0) L Red Cell Distribution Width 15.6 % (11.6-14.8) H Platelet Count 154 K/UL (150-450) Mean Platelet Volume 10.1 FL (6.5-10.1) Neutrophils (%) (Auto) 82.0 % (45.0-75.0) H Lymphocytes (%) (Auto) 8.9 % (20.0-45.0) L Monocytes (%) (Auto) 7.0 % (1.0-10.0) Eosinophils (%) (Auto) 1.5 % (0.0-3.0) Basophils (%) (Auto) 0.6 % (0.0-2.0) Sodium Level 141 MMOL/L (136-145) Potassium Level 3.3 MMOL/L (3.5-5.1) L Chloride Level 105 MMOL/L (98-107) Carbon Dioxide Level 25 MMOL/L (21-32) Anion Gap 11 mmol/L (5-15) Blood Urea Nitrogen 27 mg/dL (7-18) H Creatinine 2.4 MG/DL (0.55-1.30) H Estimat Glomerular Filtration Rate mL/min (>60) Glucose Level 123 MG/DL (74-106) H Calcium Level 9.2 MG/DL (8.5-10.1) Neurologic Exam Objective PHYSICAL EXAMINATION: GENERAL: He is a well-developed relatively well-nourished black gentleman, lying in bed, in no acute distress. HEAD: Normocephalic and atraumatic. NECK: No neck rigidity was observed. EENT: Examination benign. NEUROLOGICAL EXAMINATION: MENTAL STATUS EXAMINATION: He was awake and alert. He was oriented to person, place, and time except for the exact date. He was able to recall 3/3 words immediately after 1 minute and after 3 minutes on the second trial. He was able to remember presidents, Trump through [employer]. His mathematical skills were fairly good. His visuospatial function was preserved. SPEECH: He had a mild dysarthria. LANGUAGE: He had no aphasia. CRANIAL NERVES EXAMINATION: II: The visual field were full on confrontation testing. III, IV & : External ocular movements were full and the pupils 3 mm in diameter, equal, round, regular, and reactive to light. V: He had normal facial sensations and the temporales, masseters, and pterygoids functioned normally. VII: He had left seventh central facial paresis. VIII: He was able to hear well bilaterally and had no nystagmus. IX: The palate moved symmetrically on phonation. X: He had no hoarseness of voice. XI: The sternocleidomastoids and trapezii functioned normally. XII: The tongue was in the midline without any fasciculations or atrophy. MOTOR SYSTEM: The tone was normal on the right side and diminished on the left side. Examination of muscle mass revealed no focal wasting. Examination of power revealed G 5/5 power in the right upper extremity. In the right lower extremity he also had G 5/5 power except for G 5-/5 power in the iliopsoas. On the left side, he had G 2/5 in the deltoid, G 1/5 in the biceps, G 0/5 in the triceps, G 0/5 in the wrist and fingers, G 3/5 in the hip rotators, G 4/5 in the quadriceps, hamstrings, ankle plantar flexors and toe flexors, and G 3/5 in the ankle dorsiflexors and toe extensors. SENSORY EXAMINATION: He tended to neglect his left side minimally. He made errors on testing for pinprick and light touch over his entire left body. In addition, he had normal graphesthesia on the right side and agraphesthesia on the left side. REFLEXES: 1+ on the right and 2++ on the left at the biceps, triceps, brachioradialis and knees. 0 at both ankles. The plantar response was flexor on the right and extensor on the left. COORDINATION: He performed well on [id number] testing on the right side. He was unable to perform on the left side. He was unable to perform [id number] testing bilaterally. STANCE & GAIT: Could not be tested. Impression/Recommendations Diagnostic Impression 1. Mr Agnes Winslow is a 77-year-old, right-handed, black gentleman, who does have a past history of hypertension, chronic kidney disease, cardiomyopathy, severe congestive heart failure with an ejection fraction at 15% in the near past and asthma. On 01/01/2018, he suddenly developed left-sided weakness. He was brought into the [facility] emergency room, diagnosed with a left brain stroke, and given tPA. Following that he became significantly weaker on his left side, has developed left-sided neglect, and some visual problems on that side. 2. He feels better. The AICD implant site is still painful. The mind is clear. He says his appetite is poor and he is not eating well. His left side is still significantly weak but getting better. He is able to see well on his left side. He is aware of his left sided deficits. He however is still neglecting the left side. He has noted no new neurologic symptoms. 3. On neurological examination at this time, he is mildly disoriented, has mild problems with memory, has a mild dysarthria, he has a left seventh central facial paresis, a significant left hemiparesis, right proximal lower extremity weakness, a left hemisensory deficit and agraphesthesia, loss of deep tendon reflexes in the upper extremities with a brisk left knee jerk and extensor plantar response on the left side. 4. The CT scan of the brain without contrast performed on 01/01/2018 was read as being normal. 5. An MRI scan of the brain performed on 01/01/2018 revealed "an acute small area of right parietal infarct, but no other pathology". 6. The repeat CT of the brain done on 01/03/18 revealed an acute infarct in the right frontal and temporal lobes. No associated acute hemorrhage. 7. The carotid duplex scan was reported as being within normal limits. 8. 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 His neurologic function was improving. However his weakness got worse following the AICD implant and has improved minimally since then. Recommendations 1. Continue present management. 2. Physical, occupational and speech and language therapy. 3. Consider acute rehabilitation. 4. ASA 81 mg q day. 7. Continue Lipitor with LDL goal of <70. Arun Lara M.D., M.S.P.H. ARUN LARA Jan 17, 2018 09:22
[2018-01-17 12:00] VITALS: BP 115/70
--- NOTE | 2018-01-17 14:44 | General Progress Note ---
Assessment/Plan Problem List: (1) CKD (chronic kidney disease) ICD Codes: N18.9 - CKD (chronic kidney disease) SNOMED: 813351104 Qualifiers: Qualified Codes: N18.9 - Chronic kidney disease, unspecified (2) HTN (hypertension) ICD Codes: I10 - HTN (hypertension) SNOMED: 19031493 (3) CHF (congestive heart failure) ICD Codes: I50.9 - CHF (congestive heart failure) SNOMED: 24888265 (4) Respiratory distress ICD Codes: R06.00 - Dyspnea, unspecified SNOMED: 214022329 (5) Dyspnea ICD Codes: R06.00 - Dyspnea, unspecified SNOMED: 925154213 (6) Asthma exacerbation ICD Codes: J45.901 - Unspecified asthma with (acute) exacerbation SNOMED: 051390442 (7) IFONA (acute kidney injury) ICD Codes: N17.9 - Acute kidney failure, unspecified SNOMED: 12605388 (8) CHF exacerbation ICD Codes: I50.9 - Heart failure, unspecified SNOMED: 21272378 Qualifiers: Qualified Codes: I50.9 - Heart failure, unspecified (9) CVA (cerebral vascular accident) ICD Codes: I63.9 - Cerebral infarction, unspecified SNOMED: 246414641 Qualifiers: Qualified Codes: I63.9 - Cerebral infarction, unspecified (10) Peripheral edema ICD Codes: R60.9 - Edema, unspecified SNOMED: 214392536 (11) Cardiomyopathy ICD Codes: I42.9 - Cardiomyopathy SNOMED: 09280366 (12) Malnutrition ICD Codes: E46 - Malnutrition SNOMED: 7558883 (13) Hypokalemia ICD Codes: E87.6 - Hypokalemia SNOMED: 12090950 (14) Prediabetes ICD Codes: R73.03 - Prediabetes SNOMED: 989928723 (15) HLD (hyperlipidemia) ICD Codes: E78.5 - Hyperlipidemia, unspecified SNOMED: 73582352 (16) Leukocytosis ICD Codes: D72.829 - Elevated white blood cell count, unspecified SNOMED: 110963909, 579048128 Status: stable, progressing Assessment/Plan #acute right parietal infarct - Neurology consulted, appreciate rec's - No need for transfer to stroke center at this time per neurology - NIH stroke scale last night was 2 prior to TPA. Repeat NIH stroke scale is 5 - s/p tPA given at 0300 on 01/01 - CT head on 01/01 at 0100 was negative. - MRI brain showing acute small right parietal infarct with no hemorrhage, midline shift, or mass effect - continue permissive hypertension to systolic 160-180s x 24 hours - MRA brain and neck without contrast showing attenuated appearance of the distal right middle cerebral artery likely due to technical issues. Also with short segment stenotic appearance of the right proximal ICA, cannot exclude high -grade stenosis. - carotid U/S negative - repeat CT with no bleed, showing acute infarct. also with some corresponding edema without significant mass effect --> start HSQ - ECHO with doppler showing 25-30% EF, pulmonary hypertension, and left ventricular hypokinesis - bilateral venous duplex negative - check lipid panel and A1c - ST/PT/OT eval - Passed swallow eval, on pureed. video swallow study done, f/u results - neurochecks q4hr - LDL 83. Start lipitor 80mg qhs - will start ASA 81mg after defibb placement #Acute asthma exacerbation - prednisone 40mg PO qd x 5 days (D5/5). discontinued as patient's wheezing resolved - duonebs ATC q6hr - ABGs #Sepsis/leukocytosis, unknown etiology - ID consulted, appreciate rec's - oncologist consulted, appreciate rec's --> given leukocytosis but no source/ etiology for infection - continue IV zosyn and diflucan per ID - CXR negative. Repeat CXR negative - trend CBC - WBC up to [address] a/p showing questionable hematoma. C. diff negative. f/ u urine cx. CXR negative. Blood cx NGTD. - f/u indium white blood cell scan, to be done on Wednesday/Wednesday. If negative, will dc abx #Acute on chronic systolic CHF / severe cardiomyopathy - cardiology consulted, appreciate rec's - strict I&O - 1.5 L fluid restriction - lasix 80mg IV BID --> lasix 60 IV BID --> lasix 40mg IV BID - permissive HTN with systolic 160-180s given acute CVA till 01/02 - dobutamine gtt titrated down to 1 mcg/min - s/p PICC line 01/03 - EF 25-30% - s/p biotronic dual chamber ICD implant on 01/12/18. Interrogated and showed normal function. #FIONA due to cardiorenal syndrome - nephrology consulted, appreciate rec's - trend Cr - check urine lytes - avoid IVF given CHF exacerbation #Hypokalemia - replete electrolytes prn. monitor BMP and Mg #HLD - start lipitor 80mg #Prediabetes - A1c 6.2 - will start MURIEL for now - will discharge patient on glipizide #Poor PO intake - ST eval and treat - RD consulted DC PLANNING TO [facility] IF CLEARED PER ID/HEMATOLOGY. F/U INDIUM SCAN. CLEARED PER CARDIOLOGY. DVT ppx: HSQ Discussed case in detail with nursing staff, case management, cardiology, nephrology, neurology, ID, patient, and family. Case d/w Dr. Holliday who agrees to the plan above. Disposition: [facility] (patient accepted to facility, family/patient agreeable) I spent a total of 40 minutes on this patient's case with greater than 50% spent on care and coordination of the patient. Subjective Date patient seen: Jan 17, 2018 Time patient seen: 14:42 Allergies: Coded Allergies: No Known Allergies (Unverified , 01/09/14) Subjective - S/P Biotronic dual chamber ICD implant, POD#5 - per , not eating properly. patient states that he cannot eat due to the dry texture - AF, HDS - pending indium scan Objective Last 24 Hour Vital Signs Date Time Temp Pulse Resp B/P (MAP) Pulse Ox O2 Delivery O2 Flow Rate FiO2 01/17/18 12:00 98.2 88 20 115/70 96 Room Air 98.2 01/17/18 11:49 112/61 01/17/18 08:45 90 112/61 01/17/18 08:00 97.5 90 20 112/61 96 Room Air 97.5 01/17/18 06:12 122/65 01/17/18 06:11 122/65 01/17/18 04:00 98.4 89 20 122/65 96 Room Air 98.4 01/17/18 00:33 116/71 01/17/18 00:00 97.9 82 19 116/71 95 Room Air 97.9 01/16/18 22:25 130/71 01/16/18 20:49 86 96/60 01/16/18 20:00 98.0 86 20 96/60 100 Room Air 98.0 01/16/18 18:31 107/59 01/16/18 16:00 97.0 89 20 107/59 98 Room Air 97.0 Intake and Output 01/16/18 01/17/18 19:00 07:00 Intake Total 200 ml 520 ml Output Total 400 ml 800 ml Balance -200 ml -280 ml Intake Oral 200 ml IV Total 520 ml Output Urine Total 400 ml 800 ml # Bowel Movements 1 Laboratory Tests 01/17/18 06:50: White Blood Count 14.9H, Red Blood Count 3.60L, Hemoglobin 10.3L, Hematocrit 32.3L, Mean Corpuscular Volume 90, Mean Corpuscular Hemoglobin 28.6, Mean Corpuscular Hemoglobin Concent 31.8L, Red Cell Distribution Width 15.6H, Platelet Count 154, Mean Platelet Volume 10.1, Neutrophils (%) (Auto) 82.0H, Lymphocytes (%) (Auto) 8.9L, Monocytes (%) (Auto) 7.0, Eosinophils (%) (Auto) 1.5, Basophils (%) (Auto) 0.6, Sodium Level 141, Potassium Level 3.3L, Chloride Level 105, Carbon Dioxide Level 25, Anion Gap 11, Blood Urea Nitrogen 27H, Creatinine 2.4H, Estimat Glomerular Filtration Rate , Glucose Level 123H, Calcium Level 9.2 Height (Feet): 5 Height (Inches): 10.00 Weight (Pounds): 165 General Appearance: no apparent distress, alert EENT: PERRL/EOMI, normal ENT inspection Neck: non-tender, normal alignment, supple Cardiovascular: normal peripheral pulses, normal rate, regular rhythm Respiratory/Chest: chest wall non-tender, lungs clear, normal breath sounds Abdomen: normal bowel sounds, non tender, soft Neurologic: strategic solutions consultant II-XII grossly normal, alert, oriented x 3, other - left hemiplegia Skin: normal pigmentation, warm/dry Diane Silva NP Jan 17, 2018 14:44
--- NOTE | 2018-01-17 14:47 | Cardiac Electrophysiology PN ---
Assessment/Plan Assessment/Plan 1. Exacerbation of congestive heart failure due to severe nonischemic dilated cardiomyopathy, ejection fraction of 15% to 20%. On Lasix 40 mg iv bid, Coreg 3.125 mg b.i.d., hydralazine 50 mg tid , Isordil 10 mg every 6 hours 2. S/P Biotronic dual chamber ICD implant 01/12/18. Interrogated and showed Nl Fx. 2. Renal failure. Mildly improved from 3.7 to 2.8. F/U by Dr. Dennis 3. Elevated liver function tests likely due to right heart failure and hepatic congestion. 4. Elevated white count On Abx per Dr Witt coming down to 15 DW RN and Shira Subjective Subjective Comfortable in NAD. No events overnight. Objective Last 24 Hour Vital Signs Date Time Temp Pulse Resp B/P (MAP) Pulse Ox O2 Delivery O2 Flow Rate FiO2 01/17/18 12:00 98.2 88 20 115/70 96 Room Air 98.2 01/17/18 11:49 112/61 01/17/18 08:45 90 112/61 01/17/18 08:00 97.5 90 20 112/61 96 Room Air 97.5 01/17/18 06:12 122/65 01/17/18 06:11 122/65 01/17/18 04:00 98.4 89 20 122/65 96 Room Air 98.4 01/17/18 00:33 116/71 01/17/18 00:00 97.9 82 19 116/71 95 Room Air 97.9 01/16/18 22:25 130/71 01/16/18 20:49 86 96/60 01/16/18 20:00 98.0 86 20 96/60 100 Room Air 98.0 01/16/18 18:31 107/59 01/16/18 16:00 97.0 89 20 107/59 98 Room Air 97.0 Intake and Output 01/16/18 01/17/18 19:00 07:00 Intake Total 200 ml 520 ml Output Total 400 ml 800 ml Balance -200 ml -280 ml Intake Oral 200 ml IV Total 520 ml Output Urine Total 400 ml 800 ml # Bowel Movements 1 Laboratory Tests Test 01/17/18 06:50 White Blood Count 14.9 K/UL (4.8-10.8) H Red Blood Count 3.60 M/UL (4.70-6.10) L Hemoglobin 10.3 G/DL (14.2-18.0) L Hematocrit 32.3 % (42.0-52.0) L Mean Corpuscular Volume 90 FL (80-99) Mean Corpuscular Hemoglobin 28.6 PG (27.0-31.0) Mean Corpuscular Hemoglobin Concent 31.8 G/DL (32.0-36.0) L Red Cell Distribution Width 15.6 % (11.6-14.8) H Platelet Count 154 K/UL (150-450) Mean Platelet Volume 10.1 FL (6.5-10.1) Neutrophils (%) (Auto) 82.0 % (45.0-75.0) H Lymphocytes (%) (Auto) 8.9 % (20.0-45.0) L Monocytes (%) (Auto) 7.0 % (1.0-10.0) Eosinophils (%) (Auto) 1.5 % (0.0-3.0) Basophils (%) (Auto) 0.6 % (0.0-2.0) Sodium Level 141 MMOL/L (136-145) Potassium Level 3.3 MMOL/L (3.5-5.1) L Chloride Level 105 MMOL/L (98-107) Carbon Dioxide Level 25 MMOL/L (21-32) Anion Gap 11 mmol/L (5-15) Blood Urea Nitrogen 27 mg/dL (7-18) H Creatinine 2.4 MG/DL (0.55-1.30) H Estimat Glomerular Filtration Rate mL/min (>60) Glucose Level 123 MG/DL (74-106) H Calcium Level 9.2 MG/DL (8.5-10.1) Objective HEAD AND NECK: Mild JVD. LUNGS: Decreased breath sounds. CARDIOVASCULAR: Regular S1 and S2 with no gallop or murmur. ICD left subclavian ABDOMEN: Soft. EXTREMITIES: 2+ pitting edema. Andre Howard MD Jan 17, 2018 14:47
[2018-01-17 16:00] VITALS: BP 101/59
--- NOTE | 2018-01-17 16:14 | General Progress Note ---
Assessment/Plan Status: stable Assessment/Plan #. Thrombocytopenia, potentially secondary to underlying medications versus infection. Has been seen by Cardiology Service, meds have been reviewed. Currently in the 100-150k range ---> hepatitis and hiv are negative, CT of the abdomen/pelvis is negative for cirrhosis or splenomegaly ---> transfuse if plt count ever <20k ---> no transfusion required #. Leukocytosis. Likely related to underlying ID issue. ? sepsis, ? reactive to cva, valeria, aspiration risk, abdomen benign, ? uti, ua with 1 + le and moderate bacteria but urine culture mixed, continues to persist --> Continue antibiotics as per primary team & Infectious Disease prn --> abx as per ID, antibiotics/diflucan on board #. Anemia due to underlying chronic disease. Continue to closely monitor. significantly improved --> at this time, hold off on extensive workup unless hgb less than 10 #. Acute cerebrovascular accident on MRI. Further management per neurology #. Shortness of breath seen by pulm --> appreciate recs #. Sepsis - ID service following --> appreciate their recs #. Hypertension. Elevated blood pressure. --> currently controlled --> further management per cards Subjective Date patient seen: Jan 17, 2018 Allergies: Coded Allergies: No Known Allergies (Unverified , 01/09/14) All Systems: reviewed and negative except above Subjective per , not eating properly. patient states that he cannot eat due to the dry texture. pending indium scan Objective Last 24 Hour Vital Signs Date Time Temp Pulse Resp B/P (MAP) Pulse Ox O2 Delivery O2 Flow Rate FiO2 01/17/18 14:48 115/70 01/17/18 12:00 98.2 88 20 115/70 96 Room Air 98.2 01/17/18 11:49 112/61 01/17/18 08:45 90 112/61 01/17/18 08:00 97.5 90 20 112/61 96 Room Air 97.5 01/17/18 06:12 122/65 01/17/18 06:11 122/65 01/17/18 04:00 98.4 89 20 122/65 96 Room Air 98.4 01/17/18 00:33 116/71 01/17/18 00:00 97.9 82 19 116/71 95 Room Air 97.9 01/16/18 22:25 130/71 01/16/18 20:49 86 96/60 01/16/18 20:00 98.0 86 20 96/60 100 Room Air 98.0 01/16/18 18:31 107/59 Intake and Output 01/16/18 01/17/18 19:00 07:00 Intake Total 200 ml 520 ml Output Total 400 ml 800 ml Balance -200 ml -280 ml Intake Oral 200 ml IV Total 520 ml Output Urine Total 400 ml 800 ml # Bowel Movements 1 Laboratory Tests 01/17/18 06:50: White Blood Count 14.9H, Red Blood Count 3.60L, Hemoglobin 10.3L, Hematocrit 32.3L, Mean Corpuscular Volume 90, Mean Corpuscular Hemoglobin 28.6, Mean Corpuscular Hemoglobin Concent 31.8L, Red Cell Distribution Width 15.6H, Platelet Count 154, Mean Platelet Volume 10.1, Neutrophils (%) (Auto) 82.0H, Lymphocytes (%) (Auto) 8.9L, Monocytes (%) (Auto) 7.0, Eosinophils (%) (Auto) 1.5, Basophils (%) (Auto) 0.6, Sodium Level 141, Potassium Level 3.3L, Chloride Level 105, Carbon Dioxide Level 25, Anion Gap 11, Blood Urea Nitrogen 27H, Creatinine 2.4H, Estimat Glomerular Filtration Rate , Glucose Level 123H, Calcium Level 9.2 Height (Feet): 5 Height (Inches): 10.00 Weight (Pounds): 165 General Appearance: no apparent distress EENT: PERRL/EOMI, normal ENT inspection Neck: normal alignment, supple Cardiovascular: regular rhythm Respiratory/Chest: normal breath sounds Mahendra Marinelli MD Jan 17, 2018 16:14
--- NOTE | 2018-01-17 17:17 | Nephrology Progress Note ---
Assessment/Plan Problem List: (1) CKD (chronic kidney disease) (2) CHF (congestive heart failure) (3) Cardiomyopathy (4) Proteinuria Assessment Cr 2.4 WBCs elevated CKD- chronic systolic heart failure Right heart failuer Edema due to above and possible venous insuf Non-ischemic cardiomyopathy no cad by cath 2016 History of DVT pulmonary HTN h/o Thrombocytopenia HTN Proteinuria previous echo: Severe global left ventricular hypokinesis with septal thinning. Left ventricular ejection fraction estimated to be 10-15 %. Plan s/p pace maker Per ID- mag and K supplement as needed Optimize cardiac status, monitor renal parameters Avoid nephrotoxics per orders Subjective ROS Limited/Unobtainable: No Constitutional: Reports: malaise, weakness Objective Objective Last 24 Hour Vital Signs Date Time Temp Pulse Resp B/P (MAP) Pulse Ox O2 Delivery O2 Flow Rate FiO2 01/17/18 14:48 115/70 01/17/18 12:00 98.2 88 20 115/70 96 Room Air 98.2 01/17/18 11:49 112/61 01/17/18 08:45 90 112/61 01/17/18 08:00 97.5 90 20 112/61 96 Room Air 97.5 01/17/18 06:12 122/65 01/17/18 06:11 122/65 01/17/18 04:00 98.4 89 20 122/65 96 Room Air 98.4 01/17/18 00:33 116/71 01/17/18 00:00 97.9 82 19 116/71 95 Room Air 97.9 01/16/18 22:25 130/71 01/16/18 20:49 86 96/60 01/16/18 20:00 98.0 86 20 96/60 100 Room Air 98.0 01/16/18 18:31 107/59 Intake and Output 01/16/18 01/17/18 19:00 07:00 Intake Total 200 ml 520 ml Output Total 400 ml 800 ml Balance -200 ml -280 ml Intake Oral 200 ml IV Total 520 ml Output Urine Total 400 ml 800 ml # Bowel Movements 1 Laboratory Tests 01/17/18 06:50: White Blood Count 14.9H, Red Blood Count 3.60L, Hemoglobin 10.3L, Hematocrit 32.3L, Mean Corpuscular Volume 90, Mean Corpuscular Hemoglobin 28.6, Mean Corpuscular Hemoglobin Concent 31.8L, Red Cell Distribution Width 15.6H, Platelet Count 154, Mean Platelet Volume 10.1, Neutrophils (%) (Auto) 82.0H, Lymphocytes (%) (Auto) 8.9L, Monocytes (%) (Auto) 7.0, Eosinophils (%) (Auto) 1.5, Basophils (%) (Auto) 0.6, Sodium Level 141, Potassium Level 3.3L, Chloride Level 105, Carbon Dioxide Level 25, Anion Gap 11, Blood Urea Nitrogen 27H, Creatinine 2.4H, Estimat Glomerular Filtration Rate , Glucose Level 123H, Calcium Level 9.2 Height (Feet): 5 Height (Inches): 10.00 Weight (Pounds): 165 General Appearance: no apparent distress Objective no other change BHARATHI LOVE Jan 17, 2018 17:17
[2018-01-17] MEDS: Cefepime HCl 1 GM in D5W 110 ML IVPB SCH (18:01)
--- NOTE | 2018-01-17 18:39 | Infectious Diseases Prog Note ---
Assessment/Plan Assessment/Plan ASSESSMENT AND PLAN: 1. leukocytosis, ? sepsis, valeria, recent steroids, s/p defibrillator recently, fungemia risk - leukocytosis improved, s/p defibrillator, ? post-procedure inflammatory responsive, no fevers, urine culture negative, blood culture negative - flagyl, zyvox and cefepime, diflucan - ct without obvious abscess mentioned, ? hematoma - wbc scan pending but in process in d/w RN, check f/u labs - if wbc scan negative then consider discontinuing antibiotics 2. The patient has elevated creatinine with acute kidney injury, chronic renal failure, and anemia. 3. Acute cerebrovascular accident per history and exam + MRI noted - treatment per primary team and neurology, tpa given 4. Chronic obstructive pulmonary disease and asthma exacerbation. 5. Shortness of breath. 6. Steroids. 7. Congestive heart failure. 8. Leg edema. 9. Hypertension. 10. Blood pressure treatment per primary consultants. 11. No known allergies. 12. Social history negative. 13. Family history noncontributory. 14. MAR was noted. 15. Case discussed with RN. 16. Case discussed and communicated with Diane Silva NP for Dr. Holliday. 17. Continue treatment per primary consultants. 18. Notes and records were noted. 19. Orders were entered and communicated. 20. Case was discussed the patient's family. 21. We will follow with you. Subjective Constitutional: Reports: fatigue; Denies: fever HEENT: Denies: congestion Respiratory: Denies: shortness of breath Cardiovascular: Denies: chest pain Gastrointestinal/Abdominal: Denies: nausea, vomiting, diarrhea Genitourinary: Denies: dysuria, hematuria Neurologic: Reports: weakness; Denies: headache Psychiatric: Denies: depression Skin: Denies: rash Hematologic: Denies: bleeding Musculoskeletal: Denies: pain Allergies: Coded Allergies: No Known Allergies (Unverified , 01/09/14) Objective Vital Signs Last 24 Hour Vital Signs Date Time Temp Pulse Resp B/P (MAP) Pulse Ox O2 Delivery O2 Flow Rate FiO2 01/17/18 18:01 101/59 01/17/18 16:00 98.0 92 20 101/59 97 Room Air 98.0 01/17/18 14:48 115/70 01/17/18 12:00 98.2 88 20 115/70 96 Room Air 98.2 01/17/18 11:49 112/61 01/17/18 08:45 90 112/61 01/17/18 08:00 97.5 90 20 112/61 96 Room Air 97.5 01/17/18 06:12 122/65 01/17/18 06:11 122/65 01/17/18 04:00 98.4 89 20 122/65 96 Room Air 98.4 01/17/18 00:33 116/71 01/17/18 00:00 97.9 82 19 116/71 95 Room Air 97.9 01/16/18 22:25 130/71 01/16/18 20:49 86 96/60 01/16/18 20:00 98.0 86 20 96/60 100 Room Air 98.0 Height (Feet): 5 Height (Inches): 10.00 Weight (Pounds): 165 General Appearance: no acute distress HEENT: normocephalic, atraumatic, anicteric, mucous membranes moist, EOMI, supple, no JVD Respiratory/Chest: lungs clear, normal breath sounds, no respiratory distress, no accessory muscle use Cardiovascular: normal rate, regular rhythm, no gallop/murmur, no JVD Abdomen: normal bowel sounds, soft, non tender, no organomegaly, non distended Genitourinary: other - no reagan seen Extremities: no cyanosis Skin: no rash Neurologic/Psychiatric: 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 Acute small area of right parietal infarct. No hemorrhage. No mass effect or midline shift. 2. Involutional changes with small vessel disease. Chest -x-ray - 01/01 and 01/04 - no consolidation Chest x-ray - 01/06 - copd, no consolidation identified, report noted CT - abdomen/pelvis - IMPRESSION: 1. The right psoas muscle is prominent when compared to the left. There is some mild infiltration of the fat adjacent to the right psoas muscle. Some mild increased density is suspected within the right psoas muscle. This is suspicious for a hematoma. The suspected hematoma cannot be from the adjacent musculature. The right psoas muscle and suspected hematoma together measure approximately 4.8 cm in maximum transverse dimensions. Evaluation for active bleeding cannot be performed without IV contrast. An infectious process or neoplastic process cannot be excluded radiographically. 2. Cardiomegaly. 3. Diverticulosis without evidence for diverticulitis. 01/06 - Chest x-ray - copd (report noted) 01/12 - chest x-ray; Findings: Pacemaker in the left anterior chest wall. There is no pneumothorax. There is blunting of the left costophrenic angle which is likely due to a small pleural effusion. Heart is enlarged. PICC line again noted. IMPRESSION: Pacemaker in good position. No pneumothorax WBC scan - pending Microbiology Date/Time Source Procedure Growth Status 01/13/18 19:15 Blood Blood Culture - Preliminary NO GROWTH AFTER 72 HOURS Resulted 01/06/18 12:14 Stool Clostridium difficile Toxin Assay - Final Complete 01/13/18 16:40 Urine,Clean Catch Urine Culture - Final NO GROWTH AFTER 48 HOURS Complete Laboratory Tests Test 01/17/18 06:50 White Blood Count 14.9 K/UL (4.8-10.8) H Red Blood Count 3.60 M/UL (4.70-6.10) L Hemoglobin 10.3 G/DL (14.2-18.0) L Hematocrit 32.3 % (42.0-52.0) L Mean Corpuscular Volume 90 FL (80-99) Mean Corpuscular Hemoglobin 28.6 PG (27.0-31.0) Mean Corpuscular Hemoglobin Concent 31.8 G/DL (32.0-36.0) L Red Cell Distribution Width 15.6 % (11.6-14.8) H Platelet Count 154 K/UL (150-450) Mean Platelet Volume 10.1 FL (6.5-10.1) Neutrophils (%) (Auto) 82.0 % (45.0-75.0) H Lymphocytes (%) (Auto) 8.9 % (20.0-45.0) L Monocytes (%) (Auto) 7.0 % (1.0-10.0) Eosinophils (%) (Auto) 1.5 % (0.0-3.0) Basophils (%) (Auto) 0.6 % (0.0-2.0) Sodium Level 141 MMOL/L (136-145) Potassium Level 3.3 MMOL/L (3.5-5.1) L Chloride Level 105 MMOL/L (98-107) Carbon Dioxide Level 25 MMOL/L (21-32) Anion Gap 11 mmol/L (5-15) Blood Urea Nitrogen 27 mg/dL (7-18) H Creatinine 2.4 MG/DL (0.55-1.30) H Estimat Glomerular Filtration Rate mL/min (>60) Glucose Level 123 MG/DL (74-106) H Calcium Level 9.2 MG/DL (8.5-10.1) Current Medications Medications (Trade) Dose Ordered Sig/Denny Route PRN Reason Start Time Stop Time Status Last Admin Dose Admin Acetaminophen (Tylenol) 650 mg Q4H PRN ORAL T>100.5, MILD PAIN (1-3) 01/14/18 18:21 01/31/18 18:20 Acetaminophen (Tylenol) 650 mg Q6H PRN ORAL HEADACHE 01/14/18 18:20 02/11/18 18:19 Acetaminophen/ Codeine Phosphate (Tylenol #3) 1 tab Q4H PRN ORAL Moderate Pain (Pain Scale 4-6) 01/14/18 18:21 01/19/18 18:20 Allopurinol (Allopurinol) 300 mg DAILY ORAL 01/15/18 09:00 02/03/18 08:59 01/17/18 08:44 Aspirin (ASA) 81 mg DAILY ORAL 01/16/18 09:00 02/15/18 08:59 01/17/18 08:44 Atorvastatin Calcium (Lipitor) 80 mg BEDTIME ORAL 01/14/18 21:00 02/03/18 20:59 01/16/18 20:46 Carvedilol (Coreg) 3.125 mg EVERY 12 HOURS ORAL 01/14/18 21:00 01/31/18 20:59 01/17/18 08:45 Cefepime HCl 1 gm/ Dextrose 110 ml @ 220 mls/hr Q24H IVPB 01/15/18 17:00 01/22/18 23:59 01/17/18 18:01 Chlorhexidine Gluconate (Caitlin-Hex 2%) 1 applic DAILY@2000 TOPIC 01/14/18 20:00 02/01/18 19:59 01/16/18 20:46 Dextrose (Dextrose 50%) 25 ml STAT PRN IV Hypoglycemia 01/14/18 18:23 02/13/18 18:22 Dextrose (Dextrose 50%) 50 ml STAT PRN IV Hypoglycemia 01/14/18 18:23 02/13/18 18:22 Fluconazole (Diflucan) 200 mg DAILY@2000 ORAL 01/15/18 20:00 01/22/18 19:59 01/16/18 20:46 Furosemide (Lasix) 40 mg DAILY IV 01/15/18 09:00 02/03/18 20:59 01/17/18 08:36 Heparin Sodium (Porcine) (Heparin 5000 units/ml) 5,000 units EVERY 12 HOURS SUBQ 01/14/18 21:00 02/03/18 20:59 01/17/18 08:46 Hydralazine HCl (Apresoline) 50 mg Q8HR ORAL 01/14/18 22:00 01/31/18 13:59 01/17/18 14:48 Insulin Aspart (NovoLOG) BEFORE MEALS AND HS SUBQ 01/14/18 21:00 02/03/18 16:29 01/17/18 13:09 Isosorbide Dinitrate (Isordil) 10 mg Q6HR ORAL 01/15/18 00:00 01/31/18 17:59 01/17/18 18:01 Linezolid 300 ml @ 300 mls/hr EVERY 12 HOURS IVPB 01/14/18 21:00 01/21/18 23:59 01/17/18 08:35 Metronidazole (Flagyl) 500 mg EVERY 8 HOURS ORAL 01/15/18 22:00 01/22/18 21:59 01/17/18 14:48 Olanzapine (ZyPREXA) 2.5 mg HSPRN PRN ORAL Agitation 01/14/18 18:24 02/13/18 18:23 Ondansetron HCl (Zofran) 4 mg Q6H PRN IVP Nausea & Vomiting 01/14/18 18:24 02/11/18 18:23 Pantoprazole (Protonix) 40 mg EVERY 12 HOURS ORAL 01/14/18 21:00 01/31/18 20:59 01/17/18 08:44 Potassium Chloride (K-Dur) 40 meq BID ORAL 01/17/18 18:00 02/16/18 08:59 01/17/18 18:01 Tamsulosin HCl (Flomax) 0.4 mg Q12HR ORAL 01/15/18 09:00 02/14/18 08:59 01/17/18 08:44 Ted Gonzalez MD Jan 17, 2018 18:39
[2018-01-17 20:00] VITALS: BP 92/57
--- NOTE | 2018-01-17 22:34 | General Progress Note ---
Assessment/Plan Status: stable, progressing Assessment/Plan -ativan prn -zyprexa prn encephalopathy resolved Subjective Date patient seen: Jan 17, 2018 Neurologic/Psychiatric: Reports: anxiety, depressed, emotional problems Allergies: Coded Allergies: No Known Allergies (Unverified , 01/09/14) Subjective the pt is doing well Objective Last 24 Hour Vital Signs Date Time Temp Pulse Resp B/P (MAP) Pulse Ox O2 Delivery O2 Flow Rate FiO2 01/17/18 18:01 101/59 01/17/18 16:00 98.0 92 20 101/59 97 Room Air 98.0 01/17/18 14:48 115/70 01/17/18 12:00 98.2 88 20 115/70 96 Room Air 98.2 01/17/18 11:49 112/61 01/17/18 08:45 90 112/61 01/17/18 08:00 97.5 90 20 112/61 96 Room Air 97.5 01/17/18 06:12 122/65 01/17/18 06:11 122/65 01/17/18 04:00 98.4 89 20 122/65 96 Room Air 98.4 01/17/18 00:33 116/71 01/17/18 00:00 97.9 82 19 116/71 95 Room Air 97.9 Intake and Output 01/16/18 01/17/18 19:00 07:00 Intake Total 200 ml 520 ml Output Total 400 ml 800 ml Balance -200 ml -280 ml Intake Oral 200 ml IV Total 520 ml Output Urine Total 400 ml 800 ml # Bowel Movements 1 Laboratory Tests 01/17/18 06:50: White Blood Count 14.9H, Red Blood Count 3.60L, Hemoglobin 10.3L, Hematocrit 32.3L, Mean Corpuscular Volume 90, Mean Corpuscular Hemoglobin 28.6, Mean Corpuscular Hemoglobin Concent 31.8L, Red Cell Distribution Width 15.6H, Platelet Count 154, Mean Platelet Volume 10.1, Neutrophils (%) (Auto) 82.0H, Lymphocytes (%) (Auto) 8.9L, Monocytes (%) (Auto) 7.0, Eosinophils (%) (Auto) 1.5, Basophils (%) (Auto) 0.6, Sodium Level 141, Potassium Level 3.3L, Chloride Level 105, Carbon Dioxide Level 25, Anion Gap 11, Blood Urea Nitrogen 27H, Creatinine 2.4H, Estimat Glomerular Filtration Rate , Glucose Level 123H, Calcium Level 9.2 Height (Feet): 5 Height (Inches): 10.00 Weight (Pounds): 165 General Appearance: WD/WN, no apparent distress, alert Neurologic: oriented x 3, responsive, depressed affect Ralph Alva M.D. Jan 17, 2018 22:34
[2018-01-17] MEDS: Atorvastatin 80mg tab ORAL SCH (23:04)
[2018-01-17] MEDS: Fluconazole 100mg tab ORAL SCH (23:06)
[2018-01-17] MEDS: Dyna-Hex 2% Top Sol 2oz TOPIC SCH (23:10)
[2018-01-18] VITALS: BP 118/62
[2018-01-18 04:00] VITALS: BP 106/63
[2018-01-18] MEDS: HydrALAZINE 50mg tab ORAL SCH ×3 (06:00→21:03)
[2018-01-18] MEDS: metroNIDAZOLE 500mg tab ORAL SCH ×3 (06:28→21:03)
[2018-01-18] MEDS: NovoLOG Insulin Flexpen SUBQ SCH ×4 (06:29→20:45)
[2018-01-18 07:00] LABS: ANION GAP 10 mmol/L (5-15); BLOOD UREA NITROGEN 27 mg/dL (7-18); CALCIUM 9.1 MG/DL (8.5-10.1); CARBON DIOXIDE 25 MMOL/L (21-32); CHLORIDE 107 MMOL/L (98-107); CREATININE 2.3 MG/DL (0.55-1.30); POTASSIUM 3.8 MMOL/L (3.5-5.1); SODIUM 142 MMOL/L (136-145)
[2018-01-18 07:07] LABS: BASOPHILS % (AUTO) 0.7 % (0.0-2.0); HEMATOCRIT 31.1 % (42.0-52.0); HEMOGLOBIN 10.3 G/DL (14.2-18.0); MEAN CORPUSCULAR VOLUME 90 FL (80-99); NEUTROPHILS % (AUTO) 82.4 % (45.0-75.0); PLATELET COUNT 150 K/UL (150-450); RED BLOOD COUNT 3.47 M/UL (4.70-6.10); RED CELL DISTRIBUTION WIDTH 15.1 % (11.6-14.8); WHITE BLOOD COUNT 14.8 K/UL (4.8-10.8)
[2018-01-18 08:00] VITALS: BP 109/60
[2018-01-18] MEDS: Tamsulosin 0.4mg cap ORAL SCH ×2 (09:10→20:43)
[2018-01-18] MEDS: Aspirin Baby 81mg ORAL SCH (09:10)
[2018-01-18] MEDS: Heparin 5000 units/ml inj SUBQ SCH (09:11)
--- NOTE | 2018-01-18 11:01 | General Progress Note ---
Assessment/Plan Status: stable Assessment/Plan #. Thrombocytopenia, potentially secondary to underlying medications versus infection. Has been seen by Cardiology Service, meds have been reviewed. Currently in the 100-150k range ---> hepatitis and hiv are negative, CT of the abdomen/pelvis is negative for cirrhosis or splenomegaly ---> transfuse if plt count ever <20k ---> no transfusion required #. Leukocytosis. Likely related to underlying ID issue. ? sepsis, ? reactive to cva, valeria, aspiration risk, abdomen benign, ? uti, ua with 1 + le and moderate bacteria but urine culture mixed, continues to persist --> Continue antibiotics as per primary team & Infectious Disease prn --> abx as per ID, antibiotics/diflucan on board #. Anemia due to underlying chronic disease. Continue to closely monitor. significantly improved --> at this time, hold off on extensive workup unless hgb less than 10 #. Acute cerebrovascular accident on MRI. Further management per neurology #. Shortness of breath seen by pulm --> appreciate recs #. Sepsis - ID service following --> appreciate their recs #. Hypertension. Elevated blood pressure. --> currently controlled --> further management per cards Subjective Date patient seen: Jan 18, 2018 Gastrointestinal/Abdominal: Reports: difficulty swallowing Allergies: Coded Allergies: No Known Allergies (Unverified , 01/09/14) All Systems: reviewed and negative except above Subjective Pt awake in bed with at bedside. Difficulty swallowing, seen by nutrtion. Objective Last 24 Hour Vital Signs Date Time Temp Pulse Resp B/P (MAP) Pulse Ox O2 Delivery O2 Flow Rate FiO2 01/18/18 09:00 85 109/60 01/18/18 08:00 98.2 85 19 109/60 96 Room Air 98.2 01/18/18 06:28 106/63 01/18/18 06:00 106/63 01/18/18 04:00 97.8 96 19 106/63 95 Room Air 97.8 01/18/18 01:36 118/62 01/18/18 00:00 98.5 96 20 118/62 95 Room Air 98.5 01/17/18 22:00 92/57 01/17/18 21:00 96 92/57 01/17/18 20:00 98.4 96 19 92/57 97 Room Air 98.4 01/17/18 18:01 101/59 01/17/18 16:00 98.0 92 20 101/59 97 Room Air 98.0 01/17/18 14:48 115/70 01/17/18 12:00 98.2 88 20 115/70 96 Room Air 98.2 01/17/18 11:49 112/61 Intake and Output 01/17/18 01/18/18 19:00 07:00 Intake Total 890 ml Output Total 600 ml 200 ml Balance 290 ml -200 ml Intake Oral 480 ml IV Total 410 ml Output Urine Total 600 ml 200 ml # Bowel Movements 2 1 Laboratory Tests 01/18/18 05:43: White Blood Count 14.8H, Red Blood Count 3.47L, Hemoglobin 10.3L, Hematocrit 31.1L, Mean Corpuscular Volume 90, Mean Corpuscular Hemoglobin 29.8, Mean Corpuscular Hemoglobin Concent 33.2, Red Cell Distribution Width 15.1H, Platelet Count 150, Mean Platelet Volume 10.3H, Neutrophils (%) (Auto) 82.4H, Lymphocytes (%) (Auto) 9.0L, Monocytes (%) (Auto) 6.0, Eosinophils (%) (Auto) 2.0, Basophils (%) (Auto) 0.7, Sodium Level 142, Potassium Level 3.8, Chloride Level 107, Carbon Dioxide Level 25, Anion Gap 10, Blood Urea Nitrogen 27H, Creatinine 2.3H, Estimat Glomerular Filtration Rate , Glucose Level 112H, Calcium Level 9.1 Height (Feet): 5 Height (Inches): 10.00 Weight (Pounds): 165 General Appearance: no apparent distress EENT: PERRL/EOMI Neck: supple Cardiovascular: normal peripheral pulses Respiratory/Chest: no respiratory distress Abdomen: soft Mahendra Marinelli MD Jan 18, 2018 11:01
[2018-01-18 12:00] VITALS: BP 120/72
--- NOTE | 2018-01-18 13:21 | General Progress Note ---
Assessment/Plan Problem List: (1) CKD (chronic kidney disease) ICD Codes: N18.9 - CKD (chronic kidney disease) SNOMED: 939040305 Qualifiers: Qualified Codes: N18.9 - Chronic kidney disease, unspecified (2) HTN (hypertension) ICD Codes: I10 - HTN (hypertension) SNOMED: 19304727 (3) CHF (congestive heart failure) ICD Codes: I50.9 - CHF (congestive heart failure) SNOMED: 81488982 (4) Respiratory distress ICD Codes: R06.00 - Dyspnea, unspecified SNOMED: 920188730 (5) Dyspnea ICD Codes: R06.00 - Dyspnea, unspecified SNOMED: 993028176 (6) Asthma exacerbation ICD Codes: J45.901 - Unspecified asthma with (acute) exacerbation SNOMED: 043103702 (7) FIONA (acute kidney injury) ICD Codes: N17.9 - Acute kidney failure, unspecified SNOMED: 00269365 (8) CHF exacerbation ICD Codes: I50.9 - Heart failure, unspecified SNOMED: 36172277 Qualifiers: Qualified Codes: I50.9 - Heart failure, unspecified (9) CVA (cerebral vascular accident) ICD Codes: I63.9 - Cerebral infarction, unspecified SNOMED: 768262259 Qualifiers: Qualified Codes: I63.9 - Cerebral infarction, unspecified (10) Peripheral edema ICD Codes: R60.9 - Edema, unspecified SNOMED: 289364947 (11) Cardiomyopathy ICD Codes: I42.9 - Cardiomyopathy SNOMED: 70667051 (12) Malnutrition ICD Codes: E46 - Malnutrition SNOMED: 4430830 (13) Hypokalemia ICD Codes: E87.6 - Hypokalemia SNOMED: 59697622 (14) Prediabetes ICD Codes: R73.03 - Prediabetes SNOMED: 182038657 (15) HLD (hyperlipidemia) ICD Codes: E78.5 - Hyperlipidemia, unspecified SNOMED: 25037551 (16) Leukocytosis ICD Codes: D72.829 - Elevated white blood cell count, unspecified SNOMED: 995988902, 957863209 Status: stable, progressing Assessment/Plan #acute right parietal infarct - Neurology consulted, appreciate rec's - No need for transfer to stroke center at this time per neurology - NIH stroke scale last night was 2 prior to TPA. Repeat NIH stroke scale is 5 - s/p tPA given at 0300 on 01/01 - CT head on 01/01 at 0100 was negative. - MRI brain showing acute small right parietal infarct with no hemorrhage, midline shift, or mass effect - continue permissive hypertension to systolic 160-180s x 24 hours - MRA brain and neck without contrast showing attenuated appearance of the distal right middle cerebral artery likely due to technical issues. Also with short segment stenotic appearance of the right proximal ICA, cannot exclude high -grade stenosis. - carotid U/S negative - repeat CT with no bleed, showing acute infarct. also with some corresponding edema without significant mass effect - ECHO with doppler showing 25-30% EF, pulmonary hypertension, and left ventricular hypokinesis - bilateral venous duplex negative - check lipid panel and A1c - ST/PT/OT eval - Passed swallow eval, on pureed. video swallow study done, f/u results - neurochecks q4hr - LDL 83. Start lipitor 80mg qhs - will start ASA 81mg when ok per cardiology #Acute asthma exacerbation - prednisone 40mg PO qd x 5 days (D5/5). discontinued as patient's wheezing resolved - duonebs ATC q6hr - ABGs #Sepsis/leukocytosis, unknown etiology - ID consulted, appreciate rec's - oncologist consulted, appreciate rec's --> given leukocytosis but no source/ etiology for infection - continue IV zosyn and diflucan per ID - CXR negative. Repeat CXR negative - trend CBC - WBC up to [address] a/p showing questionable hematoma. C. diff negative. f/ u urine cx. CXR negative. Blood cx NGTD. - f/u indium white blood cell scan. If negative, will dc abx #Acute on chronic systolic CHF / severe cardiomyopathy - cardiology consulted, appreciate rec's - strict I&O - 1.5 L fluid restriction - lasix 80mg IV BID --> lasix 60 IV BID --> lasix 40mg IV BID - permissive HTN with systolic 160-180s given acute CVA till 01/02 - dobutamine gtt titrated down to 1 mcg/min - s/p PICC line 01/03 - EF 25-30% - s/p biotronic dual chamber ICD implant on 01/12/18. Interrogated and showed normal function. #FIONA due to cardiorenal syndrome - nephrology consulted, appreciate rec's - trend Cr - check urine lytes - avoid IVF given CHF exacerbation #Hypokalemia - replete electrolytes prn. monitor BMP and Mg #HLD - start lipitor 80mg #Prediabetes - A1c 6.2 - will start MURIEL for now - will discharge patient on glipizide #Poor PO intake - ST eval and treat - RD consulted DC PLANNING TO [facility]RI IF CLEARED PER ID/HEMATOLOGY. F/U INDIUM SCAN. CLEARED PER CARDIOLOGY. HOLD ASA 81MG AT THIS TIME. DVT ppx: SCDs. no anticoags per cards Discussed case in detail with nursing staff, case management, cardiology, nephrology, neurology, ID, patient, and family. Case d/w Dr. Holliday who agrees to the plan above. Disposition: [facility] (patient accepted to facility, family/patient agreeable) I spent a total of 40 minutes on this patient's case with greater than 50% spent on care and coordination of the patient. Subjective Date patient seen: Jan 18, 2018 Time patient seen: 13:19 Allergies: Coded Allergies: No Known Allergies (Unverified , 01/09/14) Subjective - S/P Biotronic dual chamber ICD implant on 01/12/18 - doing well, family at bedside - denies cp, sob, n/v, abdominal pain - pending indium scan - WBC stable at 14 Objective Last 24 Hour Vital Signs Date Time Temp Pulse Resp B/P (MAP) Pulse Ox O2 Delivery O2 Flow Rate FiO2 01/18/18 09:00 85 109/60 01/18/18 08:00 98.2 85 19 109/60 96 Room Air 98.2 01/18/18 06:28 106/63 01/18/18 06:00 106/63 01/18/18 04:00 97.8 96 19 106/63 95 Room Air 97.8 01/18/18 01:36 118/62 01/18/18 00:00 98.5 96 20 118/62 95 Room Air 98.5 01/17/18 22:00 92/57 01/17/18 21:00 96 92/57 01/17/18 20:00 98.4 96 19 92/57 97 Room Air 98.4 01/17/18 18:01 101/59 01/17/18 16:00 98.0 92 20 101/59 97 Room Air 98.0 01/17/18 14:48 115/70 Intake and Output 01/17/18 01/18/18 19:00 07:00 Intake Total 890 ml Output Total 600 ml 200 ml Balance 290 ml -200 ml Intake Oral 480 ml IV Total 410 ml Output Urine Total 600 ml 200 ml # Bowel Movements 2 1 Laboratory Tests 01/18/18 05:43: White Blood Count 14.8H, Red Blood Count 3.47L, Hemoglobin 10.3L, Hematocrit 31.1L, Mean Corpuscular Volume 90, Mean Corpuscular Hemoglobin 29.8, Mean Corpuscular Hemoglobin Concent 33.2, Red Cell Distribution Width 15.1H, Platelet Count 150, Mean Platelet Volume 10.3H, Neutrophils (%) (Auto) 82.4H, Lymphocytes (%) (Auto) 9.0L, Monocytes (%) (Auto) 6.0, Eosinophils (%) (Auto) 2.0, Basophils (%) (Auto) 0.7, Sodium Level 142, Potassium Level 3.8, Chloride Level 107, Carbon Dioxide Level 25, Anion Gap 10, Blood Urea Nitrogen 27H, Creatinine 2.3H, Estimat Glomerular Filtration Rate , Glucose Level 112H, Calcium Level 9.1 Height (Feet): 5 Height (Inches): 10.00 Weight (Pounds): 165 General Appearance: no apparent distress, alert EENT: PERRL/EOMI, normal ENT inspection Neck: non-tender, normal alignment, supple Cardiovascular: normal peripheral pulses, normal rate, regular rhythm Respiratory/Chest: chest wall non-tender, lungs clear, normal breath sounds Abdomen: normal bowel sounds, non tender, soft Neurologic: state auditor II-XII grossly normal, alert, oriented x 3, other - left hemiplegia 2/5 strength. RUE and RLE 5/5 strength Skin: normal pigmentation, warm/dry Diane Silva NP Jan 18, 2018 13:21
--- NOTE | 2018-01-18 13:37 | Nephrology Progress Note ---
Assessment/Plan Problem List: (1) CKD (chronic kidney disease) (2) CHF (congestive heart failure) (3) Cardiomyopathy (4) Proteinuria Assessment Cr 2.3 WBCs elevated CKD- chronic systolic heart failure Right heart failuer Edema due to above and possible venous insuf Non-ischemic cardiomyopathy no cad by cath 2016 History of DVT pulmonary HTN h/o Thrombocytopenia HTN Proteinuria previous echo: Severe global left ventricular hypokinesis with septal thinning. Left ventricular ejection fraction estimated to be 10-15 %. Plan s/p pace maker Per ID- mag and K supplement as needed Optimize cardiac status, monitor renal parameters Avoid nephrotoxics per orders Subjective ROS Limited/Unobtainable: No Constitutional: Reports: malaise Objective Objective Last 24 Hour Vital Signs Date Time Temp Pulse Resp B/P (MAP) Pulse Ox O2 Delivery O2 Flow Rate FiO2 01/18/18 09:00 85 109/60 01/18/18 08:00 98.2 85 19 109/60 96 Room Air 98.2 01/18/18 06:28 106/63 01/18/18 06:00 106/63 01/18/18 04:00 97.8 96 19 106/63 95 Room Air 97.8 01/18/18 01:36 118/62 01/18/18 00:00 98.5 96 20 118/62 95 Room Air 98.5 01/17/18 22:00 92/57 01/17/18 21:00 96 92/57 01/17/18 20:00 98.4 96 19 92/57 97 Room Air 98.4 01/17/18 18:01 101/59 01/17/18 16:00 98.0 92 20 101/59 97 Room Air 98.0 01/17/18 14:48 115/70 Intake and Output 01/17/18 01/18/18 19:00 07:00 Intake Total 890 ml Output Total 600 ml 200 ml Balance 290 ml -200 ml Intake Oral 480 ml IV Total 410 ml Output Urine Total 600 ml 200 ml # Bowel Movements 2 1 Laboratory Tests 01/18/18 05:43: White Blood Count 14.8H, Red Blood Count 3.47L, Hemoglobin 10.3L, Hematocrit 31.1L, Mean Corpuscular Volume 90, Mean Corpuscular Hemoglobin 29.8, Mean Corpuscular Hemoglobin Concent 33.2, Red Cell Distribution Width 15.1H, Platelet Count 150, Mean Platelet Volume 10.3H, Neutrophils (%) (Auto) 82.4H, Lymphocytes (%) (Auto) 9.0L, Monocytes (%) (Auto) 6.0, Eosinophils (%) (Auto) 2.0, Basophils (%) (Auto) 0.7, Sodium Level 142, Potassium Level 3.8, Chloride Level 107, Carbon Dioxide Level 25, Anion Gap 10, Blood Urea Nitrogen 27H, Creatinine 2.3H, Estimat Glomerular Filtration Rate , Glucose Level 112H, Calcium Level 9.1 Height (Feet): 5 Height (Inches): 10.00 Weight (Pounds): 165 General Appearance: no apparent distress Cardiovascular: normal rate Respiratory/Chest: decreased breath sounds Abdomen: soft Objective no other change BHARATHI LOVE Jan 18, 2018 13:37
--- NOTE | 2018-01-18 14:21 | Diagnostic Imaging Report ---
Indication: Infection, leukocytosis Technique: In vitro labeling of autologous white blood cells with 520 uCi indium 111. These were injected, and whole-body and spot images obtained at 24 hours Comparison: none Findings: Abnormal uptake is seen in the medial left foot, in the region of the first metatarsophalangeal joint. No other foci of unusual uptake demonstrated. Normal liver, spleen, and axial and central appendicular bone marrow activity demonstrated. Impression: Focus of increased uptake in the left foot, likely in the region of the left first metatarsophalangeal joint. This may indicate active inflammation. Correlate with clinical findings. Consider evaluation with MRI if clinically indicated
--- NOTE | 2018-01-18 14:34 | Neurology Progress Note ---
Interim History Interim History Interim History Mr. Winslow feels much better. The AICD implant site is less painful. The mind is clearer. His appetite is better and he is eating better. His left side is still significantly weak but getting better. He is able to see well on his left side. He is aware of his left sided deficits. He however is still neglecting the left side. He has noted no new neurologic symptoms. Review of Systems Neuro Review of Systems Benign. Objective Physical Exam Last Vital Signs Date Time Temp Pulse Resp B/P (MAP) Pulse Ox O2 Delivery O2 Flow Rate FiO2 01/18/18 09:00 85 109/60 01/18/18 08:00 98.2 19 96 Room Air 98.2 01/13/18 11:25 3.0 Laboratory Tests Test 01/18/18 05:43 White Blood Count 14.8 K/UL (4.8-10.8) H Red Blood Count 3.47 M/UL (4.70-6.10) L Hemoglobin 10.3 G/DL (14.2-18.0) L Hematocrit 31.1 % (42.0-52.0) L Mean Corpuscular Volume 90 FL (80-99) Mean Corpuscular Hemoglobin 29.8 PG (27.0-31.0) Mean Corpuscular Hemoglobin Concent 33.2 G/DL (32.0-36.0) Red Cell Distribution Width 15.1 % (11.6-14.8) H Platelet Count 150 K/UL (150-450) Mean Platelet Volume 10.3 FL (6.5-10.1) H Neutrophils (%) (Auto) 82.4 % (45.0-75.0) H Lymphocytes (%) (Auto) 9.0 % (20.0-45.0) L Monocytes (%) (Auto) 6.0 % (1.0-10.0) Eosinophils (%) (Auto) 2.0 % (0.0-3.0) Basophils (%) (Auto) 0.7 % (0.0-2.0) Sodium Level 142 MMOL/L (136-145) Potassium Level 3.8 MMOL/L (3.5-5.1) Chloride Level 107 MMOL/L (98-107) Carbon Dioxide Level 25 MMOL/L (21-32) Anion Gap 10 mmol/L (5-15) Blood Urea Nitrogen 27 mg/dL (7-18) H Creatinine 2.3 MG/DL (0.55-1.30) H Estimat Glomerular Filtration Rate mL/min (>60) Glucose Level 112 MG/DL (74-106) H Calcium Level 9.1 MG/DL (8.5-10.1) Neurologic Exam Objective PHYSICAL EXAMINATION: GENERAL: He is a well-developed relatively well-nourished black gentleman, lying in bed, in no acute distress. HEAD: Normocephalic and atraumatic. NECK: No neck rigidity was observed. EENT: Examination benign. NEUROLOGICAL EXAMINATION: MENTAL STATUS EXAMINATION: He was awake and alert. He was oriented to person, place, and time. He was able to recall 3/3 words immediately after 1 minute and after 3 minutes on the second trial. He was able to remember presidents, Trump through [employer]. His mathematical skills were fairly good. His visuospatial function was preserved. SPEECH: He had a mild dysarthria. LANGUAGE: He had no aphasia. CRANIAL NERVES EXAMINATION: II: The visual field were full on confrontation testing. III, IV & : External ocular movements were full and the pupils 3 mm in diameter, equal, round, regular, and reactive to light. V: He had normal facial sensations and the temporales, masseters, and pterygoids functioned normally. VII: He had left seventh central facial paresis. VIII: He was able to hear well bilaterally and had no nystagmus. IX: The palate moved symmetrically on phonation. X: He had no hoarseness of voice. XI: The sternocleidomastoids and trapezii functioned normally. XII: The tongue was in the midline without any fasciculations or atrophy. MOTOR SYSTEM: The tone was normal on the right side and diminished on the left side. Examination of muscle mass revealed no focal wasting. Examination of power revealed G 5/5 power in the right upper extremity. In the right lower extremity he also had G 5/5 power except for G 5-/5 power in the iliopsoas. On the left side, he had G 2/5 in the deltoid, G 1/5 in the biceps, G 0/5 in the triceps, G 0/5 in the wrist and fingers, G 3/5 in the hip rotators, G 4/5 in the quadriceps, hamstrings, ankle plantar flexors and toe flexors, and G 3/5 in the ankle dorsiflexors and toe extensors. SENSORY EXAMINATION: He tended to neglect his left side minimally. He made errors on testing for pinprick and light touch over his entire left body. In addition, he had normal graphesthesia on the right side and agraphesthesia on the left side. REFLEXES: 1+ on the right and 2++ on the left at the biceps, triceps, brachioradialis and knees. 0 at both ankles. The plantar response was flexor on the right and extensor on the left. COORDINATION: He performed well on [id number] testing on the right side. He was unable to perform on the left side. He was unable to perform [id number] testing bilaterally. STANCE & GAIT: Could not be tested. Impression/Recommendations Diagnostic Impression 1. Mr Agnes Winslow is a 77-year-old, right-handed, black gentleman, who does have a past history of hypertension, chronic kidney disease, cardiomyopathy, severe congestive heart failure with an ejection fraction at 15% in the near past and asthma. On 01/01/2018, he suddenly developed left-sided weakness. He was brought into the [facility] emergency room, diagnosed with a left brain stroke, and given tPA. Following that he became significantly weaker on his left side, has developed left-sided neglect, and some visual problems on that side. 2. He feels much better. The AICD implant site is less painful. The mind is clearer. His appetite is better and he is eating better. His left side is still significantly weak but getting better. He is able to see well on his left side. He is aware of his left sided deficits. He however is still neglecting the left side. He has noted no new neurologic symptoms. 3. On neurological examination at this time, he is fully oriented, has mild problems with memory, has a mild dysarthria, he has a left seventh central facial paresis, a significant left hemiparesis, right proximal lower extremity weakness, a left hemisensory deficit and agraphesthesia, loss of deep tendon reflexes in the upper extremities with a brisk left knee jerk and extensor plantar response on the left side. 4. The CT scan of the brain without contrast performed on 01/01/2018 was read as being normal. 5. An MRI scan of the brain performed on 01/01/2018 revealed "an acute small area of right parietal infarct, but no other pathology". 6. The repeat CT of the brain done on 01/03/18 revealed an acute infarct in the right frontal and temporal lobes. No associated acute hemorrhage. 7. The carotid duplex scan was reported as being within normal limits. 8. 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 His neurologic function was improving. However his weakness got worse following the AICD implant but is now improving. Recommendations 1. Continue present management. 2. Physical, occupational and speech and language therapy. 3. Consider acute rehabilitation. 4. ASA 81 mg q day. 7. Continue Lipitor with LDL goal of <70. Arun Lara M.D., M.S.P.Armando. ARUN LARA Jan 18, 2018 14:34
--- NOTE | 2018-01-18 14:52 | General Progress Note ---
Assessment/Plan Status: stable, progressing Assessment/Plan -ativan prn -zyprexa prn encephalopathy resolved Subjective Date patient seen: Jan 18, 2018 Neurologic/Psychiatric: Reports: anxiety, depressed, emotional problems Allergies: Coded Allergies: No Known Allergies (Unverified , 01/09/14) Subjective the pt is doing well Objective Last 24 Hour Vital Signs Date Time Temp Pulse Resp B/P (MAP) Pulse Ox O2 Delivery O2 Flow Rate FiO2 01/18/18 09:00 85 109/60 01/18/18 08:00 98.2 85 19 109/60 96 Room Air 98.2 01/18/18 06:28 106/63 01/18/18 06:00 106/63 01/18/18 04:00 97.8 96 19 106/63 95 Room Air 97.8 01/18/18 01:36 118/62 01/18/18 00:00 98.5 96 20 118/62 95 Room Air 98.5 01/17/18 22:00 92/57 01/17/18 21:00 96 92/57 01/17/18 20:00 98.4 96 19 92/57 97 Room Air 98.4 01/17/18 18:01 101/59 01/17/18 16:00 98.0 92 20 101/59 97 Room Air 98.0 Intake and Output 01/17/18 01/18/18 19:00 07:00 Intake Total 890 ml Output Total 600 ml 200 ml Balance 290 ml -200 ml Intake Oral 480 ml IV Total 410 ml Output Urine Total 600 ml 200 ml # Bowel Movements 2 1 Laboratory Tests 01/18/18 05:43: White Blood Count 14.8H, Red Blood Count 3.47L, Hemoglobin 10.3L, Hematocrit 31.1L, Mean Corpuscular Volume 90, Mean Corpuscular Hemoglobin 29.8, Mean Corpuscular Hemoglobin Concent 33.2, Red Cell Distribution Width 15.1H, Platelet Count 150, Mean Platelet Volume 10.3H, Neutrophils (%) (Auto) 82.4H, Lymphocytes (%) (Auto) 9.0L, Monocytes (%) (Auto) 6.0, Eosinophils (%) (Auto) 2.0, Basophils (%) (Auto) 0.7, Sodium Level 142, Potassium Level 3.8, Chloride Level 107, Carbon Dioxide Level 25, Anion Gap 10, Blood Urea Nitrogen 27H, Creatinine 2.3H, Estimat Glomerular Filtration Rate , Glucose Level 112H, Calcium Level 9.1 Height (Feet): 5 Height (Inches): 10.00 Weight (Pounds): 165 General Appearance: no apparent distress, alert Neurologic: oriented x 3, responsive, depressed affect Ralph Alva M.D. Jan 18, 2018 14:52
[2018-01-18] MEDS ORDERED: NS 275ml ONE (15:38)
[2018-01-18 16:00] VITALS: BP 107/67
--- NOTE | 2018-01-18 16:03 | Cardiac Electrophysiology PN ---
Assessment/Plan Assessment/Plan 1. Exacerbation of CHF due to severe nonischemic dilated cardiomyopathy, ejection fraction of 15% to 20%. On Lasix 40 mg iv daily, Coreg 3.125 mg bid , hydralazine 50 mg tid , Isordil 10 mg q6 hr 2. S/P Biotronic dual chamber ICD implant 01/12/18. Interrogated and showed Nl Fx. 3. Renal failure. Mildly improved from 3.7 to 2.3. F/U by Dr. Dennis 4. Elevated liver function tests likely due to right heart failure and hepatic congestion. 5. Elevated white count On Abx per Dr Witt coming down to 15 DW RN Subjective Subjective Comfortable in NAD. No CP or SOB. Objective Last 24 Hour Vital Signs Date Time Temp Pulse Resp B/P (MAP) Pulse Ox O2 Delivery O2 Flow Rate FiO2 01/18/18 14:00 106/72 01/18/18 12:00 98.1 82 18 120/72 97 Room Air 98.1 01/18/18 09:00 85 109/60 01/18/18 08:00 98.2 85 19 109/60 96 Room Air 98.2 01/18/18 06:28 106/63 01/18/18 06:00 106/63 01/18/18 04:00 97.8 96 19 106/63 95 Room Air 97.8 01/18/18 01:36 118/62 01/18/18 00:00 98.5 96 20 118/62 95 Room Air 98.5 01/17/18 22:00 92/57 01/17/18 21:00 96 92/57 01/17/18 20:00 98.4 96 19 92/57 97 Room Air 98.4 01/17/18 18:01 101/59 01/17/18 16:00 98.0 92 20 101/59 97 Room Air 98.0 Intake and Output 01/17/18 01/18/18 19:00 07:00 Intake Total 890 ml Output Total 600 ml 200 ml Balance 290 ml -200 ml Intake Oral 480 ml IV Total 410 ml Output Urine Total 600 ml 200 ml # Bowel Movements 2 1 Laboratory Tests Test 01/18/18 05:43 White Blood Count 14.8 K/UL (4.8-10.8) H Red Blood Count 3.47 M/UL (4.70-6.10) L Hemoglobin 10.3 G/DL (14.2-18.0) L Hematocrit 31.1 % (42.0-52.0) L Mean Corpuscular Volume 90 FL (80-99) Mean Corpuscular Hemoglobin 29.8 PG (27.0-31.0) Mean Corpuscular Hemoglobin Concent 33.2 G/DL (32.0-36.0) Red Cell Distribution Width 15.1 % (11.6-14.8) H Platelet Count 150 K/UL (150-450) Mean Platelet Volume 10.3 FL (6.5-10.1) H Neutrophils (%) (Auto) 82.4 % (45.0-75.0) H Lymphocytes (%) (Auto) 9.0 % (20.0-45.0) L Monocytes (%) (Auto) 6.0 % (1.0-10.0) Eosinophils (%) (Auto) 2.0 % (0.0-3.0) Basophils (%) (Auto) 0.7 % (0.0-2.0) Sodium Level 142 MMOL/L (136-145) Potassium Level 3.8 MMOL/L (3.5-5.1) Chloride Level 107 MMOL/L (98-107) Carbon Dioxide Level 25 MMOL/L (21-32) Anion Gap 10 mmol/L (5-15) Blood Urea Nitrogen 27 mg/dL (7-18) H Creatinine 2.3 MG/DL (0.55-1.30) H Estimat Glomerular Filtration Rate mL/min (>60) Glucose Level 112 MG/DL (74-106) H Calcium Level 9.1 MG/DL (8.5-10.1) Objective HEAD AND NECK: Mild JVD. LUNGS: Decreased breath sounds. CARDIOVASCULAR: Regular S1 and S2 with no gallop or murmur. ICD left subclavian ABDOMEN: Soft. EXTREMITIES: 2+ pitting edema. Andre Howard MD Jan 18, 2018 16:03
[2018-01-18] MEDS: Cefepime HCl 1 GM in D5W 110 ML IVPB SCH (17:57)
[2018-01-18 20:00] VITALS: BP 126/76
[2018-01-18] MEDS: Dyna-Hex 2% Top Sol 2oz TOPIC SCH (20:43)
[2018-01-18] MEDS: Atorvastatin 80mg tab ORAL SCH (20:44)
[2018-01-18] MEDS: Fluconazole 100mg tab ORAL SCH (20:44)
[2018-01-19] VITALS (7 sets, daily range): BP systolic 98–125; BP diastolic 60–69
[2018-01-19] MEDS: metroNIDAZOLE 500mg tab ORAL SCH ×2 (05:04→14:17)
[2018-01-19] MEDS: HydrALAZINE 50mg tab ORAL SCH ×2 (05:04→13:55)
[2018-01-19] MEDS: NovoLOG Insulin Flexpen SUBQ SCH ×4 (06:08→20:29)
[2018-01-19 08:13] LABS: BASOPHILS % (AUTO) 0.6 % (0.0-2.0); EOSINOPHILS % (AUTO) 2.5 % (0.0-3.0); HEMATOCRIT 32.1 % (42.0-52.0); HEMOGLOBIN 10.2 G/DL (14.2-18.0); LYMPHOCYTES % (AUTO) 11.4 % (20.0-45.0); MEAN CORPUSCULAR VOLUME 90 FL (80-99); MONOCYTES % (AUTO) 5.5 % (1.0-10.0); PLATELET COUNT 151 K/UL (150-450); RED BLOOD COUNT 3.58 M/UL (4.70-6.10); RED CELL DISTRIBUTION WIDTH 14.9 % (11.6-14.8); WHITE BLOOD COUNT 11.4 K/UL (4.8-10.8)
[2018-01-19] MEDS: Tamsulosin 0.4mg cap ORAL SCH ×2 (08:35→20:26)
[2018-01-19 08:41] LABS: ANION GAP 11 mmol/L (5-15); BLOOD UREA NITROGEN 29 mg/dL (7-18); CALCIUM 9.2 MG/DL (8.5-10.1); CARBON DIOXIDE 24 MMOL/L (21-32); CHLORIDE 107 MMOL/L (98-107); CREATININE 2.2 MG/DL (0.55-1.30); SODIUM 142 MMOL/L (136-145)
--- NOTE | 2018-01-19 12:00 | Cardiac Electrophysiology PN ---
Assessment/Plan Assessment/Plan 1. Exacerbation of CHF due to severe nonischemic dilated cardiomyopathy, ejection fraction of 15% to 20%. On Lasix 40 mg iv daily, Coreg 3.125 mg bid , hydralazine 50 mg tid , Isordil 10 mg q6 hr 2. S/P Biotronic dual chamber ICD implant 01/12/18. Interrogated and showed Nl Fx. Incision cleansed with iodine and alcohol and steristrips applied. Patient instructed against scratching the incision. 3. Renal failure. Mildly improved from 3.7 to 2.3. F/U by Dr. Dennis 4. Elevated liver function tests likely due to right heart failure and hepatic congestion. 5. Elevated white count On Abx per Dr Witt coming down to 15 DW RN Subjective Subjective Comfortable in NAD. No CP or SOB.Had slight oozing from incision as he was scratching it. Objective Last 24 Hour Vital Signs Date Time Temp Pulse Resp B/P (MAP) Pulse Ox O2 Delivery O2 Flow Rate FiO2 01/19/18 08:35 71 106/60 01/19/18 08:00 98.1 92 18 106/60 96 Room Air 98.1 01/19/18 05:04 106/60 01/19/18 05:04 106/60 01/19/18 04:00 97.6 86 19 106/60 98 Room Air 97.6 01/19/18 01:27 110/69 01/19/18 00:00 97.7 89 19 110/69 98 Room Air 97.7 01/18/18 21:03 126/76 01/18/18 20:44 102 126/76 01/18/18 20:00 97.3 102 20 126/76 98 Room Air 97.3 01/18/18 17:57 112/68 01/18/18 16:00 98.6 80 18 107/67 97 Room Air 98.6 01/18/18 14:00 106/72 01/18/18 12:00 98.1 82 18 120/72 97 Room Air 98.1 Intake and Output 01/18/18 01/19/18 19:00 07:00 Intake Total 410 ml Output Total 450 ml 650 ml Balance -40 ml -650 ml IV Total 410 ml Output Urine Total 450 ml 650 ml # Bowel Movements 1 Laboratory Tests Test 6/6/18 06:42 White Blood Count 11.4 K/UL (4.8-10.8) H Red Blood Count 3.58 M/UL (4.70-6.10) L Hemoglobin 10.2 G/DL (14.2-18.0) L Hematocrit 32.1 % (42.0-52.0) L Mean Corpuscular Volume 90 FL (80-99) Mean Corpuscular Hemoglobin 28.4 PG (27.0-31.0) Mean Corpuscular Hemoglobin Concent 31.7 G/DL (32.0-36.0) L Red Cell Distribution Width 14.9 % (11.6-14.8) H Platelet Count 151 K/UL (150-450) Mean Platelet Volume 10.2 FL (6.5-10.1) H Neutrophils (%) (Auto) 80.0 % (45.0-75.0) H Lymphocytes (%) (Auto) 11.4 % (20.0-45.0) L Monocytes (%) (Auto) 5.5 % (1.0-10.0) Eosinophils (%) (Auto) 2.5 % (0.0-3.0) Basophils (%) (Auto) 0.6 % (0.0-2.0) Sodium Level 142 MMOL/L (136-145) Potassium Level 4.0 MMOL/L (3.5-5.1) Chloride Level 107 MMOL/L (98-107) Carbon Dioxide Level 24 MMOL/L (21-32) Anion Gap 11 mmol/L (5-15) Blood Urea Nitrogen 29 mg/dL (7-18) H Creatinine 2.2 MG/DL (0.55-1.30) H Estimat Glomerular Filtration Rate mL/min (>60) Glucose Level 128 MG/DL (74-106) H Calcium Level 9.2 MG/DL (8.5-10.1) Objective HEAD AND NECK: Mild JVD. LUNGS: Decreased breath sounds. CARDIOVASCULAR: Regular S1 and S2 with no gallop or murmur. ICD left subclavian with mild to moderate hematoma. ABDOMEN: Soft. EXTREMITIES: 1+ pitting edema. Andre Howard MD Jan 19, 2018 12:00
--- NOTE | 2018-01-19 12:27 | General Progress Note ---
Assessment/Plan Status: stable, progressing Assessment/Plan -ativan prn -zyprexa prn encephalopathy resolved Subjective Date patient seen: Jan 19, 2018 Neurologic/Psychiatric: Reports: anxiety, depressed, emotional problems Allergies: Coded Allergies: No Known Allergies (Unverified , 01/09/14) Subjective the pt is somewhat anxious Objective Last 24 Hour Vital Signs Date Time Temp Pulse Resp B/P (MAP) Pulse Ox O2 Delivery O2 Flow Rate FiO2 01/19/18 08:35 71 106/60 01/19/18 08:00 98.1 92 18 106/60 96 Room Air 98.1 01/19/18 05:04 106/60 01/19/18 05:04 106/60 01/19/18 04:00 97.6 86 19 106/60 98 Room Air 97.6 01/19/18 01:27 110/69 01/19/18 00:00 97.7 89 19 110/69 98 Room Air 97.7 01/18/18 21:03 126/76 01/18/18 20:44 102 126/76 01/18/18 20:00 97.3 102 20 126/76 98 Room Air 97.3 01/18/18 17:57 112/68 01/18/18 16:00 98.6 80 18 107/67 97 Room Air 98.6 01/18/18 14:00 106/72 Intake and Output 01/18/18 01/19/18 19:00 07:00 Intake Total 410 ml Output Total 450 ml 650 ml Balance -40 ml -650 ml IV Total 410 ml Output Urine Total 450 ml 650 ml # Bowel Movements 1 Laboratory Tests 01/19/18 06:42: White Blood Count 11.4H, Red Blood Count 3.58L, Hemoglobin 10.2L, Hematocrit 32.1L, Mean Corpuscular Volume 90, Mean Corpuscular Hemoglobin 28.4, Mean Corpuscular Hemoglobin Concent 31.7L, Red Cell Distribution Width 14.9H, Platelet Count 151, Mean Platelet Volume 10.2H, Neutrophils (%) (Auto) 80.0H, Lymphocytes (%) (Auto) 11.4L, Monocytes (%) (Auto) 5.5, Eosinophils (%) (Auto) 2.5, Basophils (%) (Auto) 0.6, Sodium Level 142, Potassium Level 4.0, Chloride Level 107, Carbon Dioxide Level 24, Anion Gap 11, Blood Urea Nitrogen 29H, Creatinine 2.2H, Estimat Glomerular Filtration Rate , Glucose Level 128H, Calcium Level 9.2 Height (Feet): 5 Height (Inches): 10.00 Weight (Pounds): 162 General Appearance: WD/WN, no apparent distress, alert Neurologic: oriented x 3, responsive, depressed affect Ralph Alva M.D. Jan 19, 2018 12:27
--- NOTE | 2018-01-19 12:37 | Nephrology Progress Note ---
Assessment/Plan Problem List: (1) CKD (chronic kidney disease) (2) CHF (congestive heart failure) (3) Cardiomyopathy (4) Proteinuria Assessment Cr 2.2 WBCs elevated CKD- chronic systolic heart failure Right heart failuer Edema due to above and possible venous insuf Non-ischemic cardiomyopathy no cad by cath 2016 History of DVT pulmonary HTN h/o Thrombocytopenia HTN Proteinuria previous echo: Severe global left ventricular hypokinesis with septal thinning. Left ventricular ejection fraction estimated to be 10-15 %. Plan s/p pace maker Per ID- mag and K supplement as needed Optimize cardiac status, monitor renal parameters Avoid nephrotoxics per orders Subjective ROS Limited/Unobtainable: No Constitutional: Reports: malaise Objective Objective Last 24 Hour Vital Signs Date Time Temp Pulse Resp B/P (MAP) Pulse Ox O2 Delivery O2 Flow Rate FiO2 01/19/18 08:35 71 106/60 01/19/18 08:00 98.1 92 18 106/60 96 Room Air 98.1 01/19/18 05:04 106/60 01/19/18 05:04 106/60 01/19/18 04:00 97.6 86 19 106/60 98 Room Air 97.6 01/19/18 01:27 110/69 01/19/18 00:00 97.7 89 19 110/69 98 Room Air 97.7 01/18/18 21:03 126/76 01/18/18 20:44 102 126/76 01/18/18 20:00 97.3 102 20 126/76 98 Room Air 97.3 01/18/18 17:57 112/68 01/18/18 16:00 98.6 80 18 107/67 97 Room Air 98.6 01/18/18 14:00 106/72 Intake and Output 01/18/18 01/19/18 19:00 07:00 Intake Total 410 ml Output Total 450 ml 650 ml Balance -40 ml -650 ml IV Total 410 ml Output Urine Total 450 ml 650 ml # Bowel Movements 1 Laboratory Tests 01/19/18 06:42: White Blood Count 11.4H, Red Blood Count 3.58L, Hemoglobin 10.2L, Hematocrit 32.1L, Mean Corpuscular Volume 90, Mean Corpuscular Hemoglobin 28.4, Mean Corpuscular Hemoglobin Concent 31.7L, Red Cell Distribution Width 14.9H, Platelet Count 151, Mean Platelet Volume 10.2H, Neutrophils (%) (Auto) 80.0H, Lymphocytes (%) (Auto) 11.4L, Monocytes (%) (Auto) 5.5, Eosinophils (%) (Auto) 2.5, Basophils (%) (Auto) 0.6, Sodium Level 142, Potassium Level 4.0, Chloride Level 107, Carbon Dioxide Level 24, Anion Gap 11, Blood Urea Nitrogen 29H, Creatinine 2.2H, Estimat Glomerular Filtration Rate , Glucose Level 128H, Calcium Level 9.2 Height (Feet): 5 Height (Inches): 10.00 Weight (Pounds): 162 General Appearance: no apparent distress Objective no other change BHARATHI LOVE Jan 19, 2018 12:37
--- NOTE | 2018-01-19 13:03 | General Progress Note ---
Assessment/Plan Status: stable Assessment/Plan #. Thrombocytopenia, potentially secondary to underlying medications versus infection. Has been seen by Cardiology Service, meds have been reviewed. Currently in the 100-150k range ---> hepatitis and hiv are negative, CT of the abdomen/pelvis is negative for cirrhosis or splenomegaly ---> transfuse if plt count ever <20k ---> no transfusion required #. Leukocytosis. Likely related to underlying ID issue. ? sepsis, ? reactive to cva, valeria, aspiration risk, abdomen benign, ? uti, ua with 1 + le and moderate bacteria but urine culture mixed, continues to persist --> Continue antibiotics as per primary team & Infectious Disease prn --> abx as per ID, antibiotics/diflucan on board #. Anemia due to underlying chronic disease. Continue to closely monitor. significantly improved --> at this time, hold off on extensive workup unless hgb less than 10 #. Acute cerebrovascular accident on MRI. Further management per neurology #. Shortness of breath seen by pulm --> appreciate recs #. Sepsis - ID service following --> appreciate their recs #. Hypertension. Elevated blood pressure. --> currently controlled --> further management per cards Subjective Date patient seen: Jan 19, 2018 Allergies: Coded Allergies: No Known Allergies (Unverified , 01/09/14) All Systems: reviewed and negative except above Subjective Pt seen awake in bed. No s/s of infection on left upper chest surgical site Objective Last 24 Hour Vital Signs Date Time Temp Pulse Resp B/P (MAP) Pulse Ox O2 Delivery O2 Flow Rate FiO2 01/19/18 08:35 71 106/60 01/19/18 08:00 98.1 92 18 106/60 96 Room Air 98.1 01/19/18 05:04 106/60 01/19/18 05:04 106/60 01/19/18 04:00 97.6 86 19 106/60 98 Room Air 97.6 01/19/18 01:27 110/69 01/19/18 00:00 97.7 89 19 110/69 98 Room Air 97.7 01/18/18 21:03 126/76 01/18/18 20:44 102 126/76 01/18/18 20:00 97.3 102 20 126/76 98 Room Air 97.3 01/18/18 17:57 112/68 01/18/18 16:00 98.6 80 18 107/67 97 Room Air 98.6 01/18/18 14:00 106/72 Intake and Output 01/18/18 01/19/18 19:00 07:00 Intake Total 410 ml Output Total 450 ml 650 ml Balance -40 ml -650 ml IV Total 410 ml Output Urine Total 450 ml 650 ml # Bowel Movements 1 Laboratory Tests 01/19/18 06:42: White Blood Count 11.4H, Red Blood Count 3.58L, Hemoglobin 10.2L, Hematocrit 32.1L, Mean Corpuscular Volume 90, Mean Corpuscular Hemoglobin 28.4, Mean Corpuscular Hemoglobin Concent 31.7L, Red Cell Distribution Width 14.9H, Platelet Count 151, Mean Platelet Volume 10.2H, Neutrophils (%) (Auto) 80.0H, Lymphocytes (%) (Auto) 11.4L, Monocytes (%) (Auto) 5.5, Eosinophils (%) (Auto) 2.5, Basophils (%) (Auto) 0.6, Sodium Level 142, Potassium Level 4.0, Chloride Level 107, Carbon Dioxide Level 24, Anion Gap 11, Blood Urea Nitrogen 29H, Creatinine 2.2H, Estimat Glomerular Filtration Rate , Glucose Level 128H, Calcium Level 9.2 Height (Feet): 5 Height (Inches): 10.00 Weight (Pounds): 162 General Appearance: no apparent distress EENT: PERRL/EOMI Neck: supple Cardiovascular: normal peripheral pulses Respiratory/Chest: chest wall non-tender Abdomen: normal bowel sounds Mahendra Marinelli MD Jan 19, 2018 13:03
--- NOTE | 2018-01-19 13:40 | General Progress Note ---
Assessment/Plan Problem List: (1) CKD (chronic kidney disease) ICD Codes: N18.9 - CKD (chronic kidney disease) SNOMED: 536156910 Qualifiers: Qualified Codes: N18.9 - Chronic kidney disease, unspecified (2) HTN (hypertension) ICD Codes: I10 - HTN (hypertension) SNOMED: 73989694 (3) CHF (congestive heart failure) ICD Codes: I50.9 - CHF (congestive heart failure) SNOMED: 08576566 (4) Respiratory distress ICD Codes: R06.00 - Dyspnea, unspecified SNOMED: 308510567 (5) Dyspnea ICD Codes: R06.00 - Dyspnea, unspecified SNOMED: 778252499 (6) Asthma exacerbation ICD Codes: J45.901 - Unspecified asthma with (acute) exacerbation SNOMED: 375348367 (7) FIONA (acute kidney injury) ICD Codes: N17.9 - Acute kidney failure, unspecified SNOMED: 74476735 (8) CHF exacerbation ICD Codes: I50.9 - Heart failure, unspecified SNOMED: 99810236 Qualifiers: Qualified Codes: I50.9 - Heart failure, unspecified (9) CVA (cerebral vascular accident) ICD Codes: I63.9 - Cerebral infarction, unspecified SNOMED: 691714096 Qualifiers: Qualified Codes: I63.9 - Cerebral infarction, unspecified (10) Peripheral edema ICD Codes: R60.9 - Edema, unspecified SNOMED: 637933208 (11) Cardiomyopathy ICD Codes: I42.9 - Cardiomyopathy SNOMED: 75184649 (12) Malnutrition ICD Codes: E46 - Malnutrition SNOMED: 4359933 (13) Hypokalemia ICD Codes: E87.6 - Hypokalemia SNOMED: 76924927 (14) Prediabetes ICD Codes: R73.03 - Prediabetes SNOMED: 252580574 (15) HLD (hyperlipidemia) ICD Codes: E78.5 - Hyperlipidemia, unspecified SNOMED: 48504381 (16) Leukocytosis ICD Codes: D72.829 - Elevated white blood cell count, unspecified SNOMED: 369226455, 043218953 Status: stable, progressing Assessment/Plan #acute right parietal infarct - Neurology consulted, appreciate rec's - No need for transfer to stroke center at this time per neurology - NIH stroke scale last night was 2 prior to TPA. Repeat NIH stroke scale is 5 - s/p tPA given at 0300 on 01/01 - CT head on 01/01 at 0100 was negative. - MRI brain showing acute small right parietal infarct with no hemorrhage, midline shift, or mass effect - continue permissive hypertension to systolic 160-180s x 24 hours - MRA brain and neck without contrast showing attenuated appearance of the distal right middle cerebral artery likely due to technical issues. Also with short segment stenotic appearance of the right proximal ICA, cannot exclude high -grade stenosis. - carotid U/S negative - repeat CT with no bleed, showing acute infarct. also with some corresponding edema without significant mass effect - ECHO with doppler showing 25-30% EF, pulmonary hypertension, and left ventricular hypokinesis - bilateral venous duplex negative - check lipid panel and A1c - ST/PT/OT eval - Passed swallow eval, on pureed. video swallow study done, f/u results - neurochecks q4hr - LDL 83. Start lipitor 80mg qhs - will start ASA 81mg when ok per cardiology #Acute asthma exacerbation - prednisone 40mg PO qd x 5 days (D5/5). discontinued as patient's wheezing resolved - duonebs ATC q6hr - ABGs #Sepsis/leukocytosis, unknown etiology - ID consulted, appreciate rec's - oncologist consulted, appreciate rec's --> given leukocytosis but no source/ etiology for infection - continue IV zosyn and diflucan per ID - CXR negative. Repeat CXR negative - trend CBC - WBC up to [address] a/p showing questionable hematoma. C. diff negative. f/ u urine cx. CXR negative. Blood cx NGTD. - indium white blood cell scan showing abnormal uptake to left first metatarsophalengeal but no s/s of infection. will check XR of left foot to r/o osteomyelitis. If negative, will dc abx #Acute on chronic systolic CHF / severe cardiomyopathy - cardiology consulted, appreciate rec's - strict I&O - 1.5 L fluid restriction - lasix 80mg IV BID --> lasix 60 IV BID --> lasix 40mg IV BID - permissive HTN with systolic 160-180s given acute CVA till 01/02 - dobutamine gtt titrated down to 1 mcg/min - s/p PICC line 01/03 - EF 25-30% - s/p biotronic dual chamber ICD implant on 01/12/18. Interrogated and showed normal function. #FIONA due to cardiorenal syndrome - nephrology consulted, appreciate rec's - trend Cr - check urine lytes - avoid IVF given CHF exacerbation #Hypokalemia - replete electrolytes prn. monitor BMP and Mg #HLD - start lipitor 80mg #Prediabetes - A1c 6.2 - will start MURIEL for now - will discharge patient on glipizide #Poor PO intake - ST eval and treat - RD consulted DC PLANNING TO [facility] IF CLEARED PER ID/HEMATOLOGY. F/U LEFT FOOT XR TO R/O OSTEOMYELITIS. CLEARED PER CARDIOLOGY. HOLD ASA 81MG AT THIS TIME. DVT ppx: SCDs. no anticoags per cards Discussed case in detail with nursing staff, case management, cardiology, nephrology, neurology, ID, patient, and family. Case d/w Dr. Holliday who agrees to the plan above. Disposition: [facility] (patient accepted to facility, family/patient agreeable) I spent a total of 40 minutes on this patient's case with greater than 50% spent on care and coordination of the patient. Subjective Date patient seen: Jan 19, 2018 Time patient seen: 13:36 Allergies: Coded Allergies: No Known Allergies (Unverified , 01/09/14) Subjective - S/P Biotronic dual chamber ICD implant on 01/12/18 - WBC downtrending, 11 today - indium scan showing abnormal uptake to left first metatarsophalengeal. patient denies any pain, swelling, or redness to that area - denies cp, sob - at bedside Objective Last 24 Hour Vital Signs Date Time Temp Pulse Resp B/P (MAP) Pulse Ox O2 Delivery O2 Flow Rate FiO2 01/19/18 12:00 98/62 01/19/18 12:00 98.2 81 18 98/62 96 Room Air 98.2 01/19/18 08:35 71 106/60 01/19/18 08:00 98.1 92 18 106/60 96 Room Air 98.1 01/19/18 05:04 106/60 01/19/18 05:04 106/60 01/19/18 04:00 97.6 86 19 106/60 98 Room Air 97.6 01/19/18 01:27 110/69 6/6/18 00:00 97.7 89 19 110/69 98 Room Air 97.7 01/18/18 21:03 126/76 01/18/18 20:44 102 126/76 01/18/18 20:00 97.3 102 20 126/76 98 Room Air 97.3 01/18/18 17:57 112/68 01/18/18 16:00 98.6 80 18 107/67 97 Room Air 98.6 01/18/18 14:00 106/72 Intake and Output 01/18/18 01/19/18 19:00 07:00 Intake Total 410 ml Output Total 450 ml 650 ml Balance -40 ml -650 ml IV Total 410 ml Output Urine Total 450 ml 650 ml # Bowel Movements 1 Laboratory Tests 01/19/18 06:42: White Blood Count 11.4H, Red Blood Count 3.58L, Hemoglobin 10.2L, Hematocrit 32.1L, Mean Corpuscular Volume 90, Mean Corpuscular Hemoglobin 28.4, Mean Corpuscular Hemoglobin Concent 31.7L, Red Cell Distribution Width 14.9H, Platelet Count 151, Mean Platelet Volume 10.2H, Neutrophils (%) (Auto) 80.0H, Lymphocytes (%) (Auto) 11.4L, Monocytes (%) (Auto) 5.5, Eosinophils (%) (Auto) 2.5, Basophils (%) (Auto) 0.6, Sodium Level 142, Potassium Level 4.0, Chloride Level 107, Carbon Dioxide Level 24, Anion Gap 11, Blood Urea Nitrogen 29H, Creatinine 2.2H, Estimat Glomerular Filtration Rate , Glucose Level 128H, Calcium Level 9.2 Height (Feet): 5 Height (Inches): 10.00 Weight (Pounds): 162 General Appearance: no apparent distress, alert EENT: PERRL/EOMI, normal ENT inspection Neck: non-tender, normal alignment, supple Cardiovascular: normal peripheral pulses, normal rate, regular rhythm, pacemaker/AICD Respiratory/Chest: chest wall non-tender, lungs clear, normal breath sounds Abdomen: normal bowel sounds, non tender, soft Neurologic: instrument calibrator II-XII grossly normal, abnormal gait, alert, oriented x 3, other - left hemiplegia Skin: normal pigmentation, warm/dry Diane Silva NP Jan 19, 2018 13:40
--- NOTE | 2018-01-19 14:01 | Infectious Diseases Prog Note ---
Assessment/Plan Assessment/Plan ASSESSMENT AND PLAN: 1. leukocytosis, ? sepsis, valeria, recent steroids, s/p defibrillator recently, fungemia risk - leukocytosis improved, s/p defibrillator, ? post-procedure inflammatory responsive, no fevers, urine culture negative, blood culture negative, c.diff. negative - flagyl, zyvox and cefepime x 2 days for 7 day course, diflucan for 5 days more - ct without obvious abscess mentioned, ? hematoma - wbc scan with uptake in left foot, ? significance, left foot exam unremarkable for infection - f/u on labs and check x-ray of left foot - d/w Diane Silva NP 2. The patient has elevated creatinine with acute kidney injury, chronic renal failure, and anemia. 3. Acute cerebrovascular accident per history and exam + MRI noted - treatment per primary team and neurology, tpa given 4. Chronic obstructive pulmonary disease and asthma exacerbation. 5. Shortness of breath. 6. Steroids. 7. Congestive heart failure. 8. Leg edema. 9. Hypertension. 10. Blood pressure treatment per primary consultants. 11. No known allergies. 12. Social history negative. 13. Family history noncontributory. 14. MAR was noted. 15. Case discussed with RN. 16. Case discussed and communicated with Diane Silva NP for Dr. Holliday. 17. Continue treatment per primary consultants. 18. Notes and records were noted. 19. Orders were entered and communicated. 20. Case was discussed the patient's family. 21. We will follow with you. Subjective Constitutional: Reports: fatigue; Denies: fever HEENT: Denies: congestion Respiratory: Denies: shortness of breath Cardiovascular: Denies: chest pain Gastrointestinal/Abdominal: Denies: nausea, vomiting, diarrhea Genitourinary: Reports: other - + reagan - urine clear Neurologic: Denies: headache Psychiatric: Denies: depression Skin: Denies: rash Hematologic: Denies: bleeding Musculoskeletal: Denies: pain Allergies: Coded Allergies: No Known Allergies (Unverified , 01/09/14) Objective Vital Signs Last 24 Hour Vital Signs Date Time Temp Pulse Resp B/P (MAP) Pulse Ox O2 Delivery O2 Flow Rate FiO2 01/19/18 12:00 98/62 01/19/18 12:00 98.2 81 18 98/62 96 Room Air 98.2 01/19/18 08:35 71 106/60 01/19/18 08:00 98.1 92 18 106/60 96 Room Air 98.1 01/19/18 05:04 106/60 01/19/18 05:04 106/60 01/19/18 04:00 97.6 86 19 106/60 98 Room Air 97.6 01/19/18 01:27 110/69 01/19/18 00:00 97.7 89 19 110/69 98 Room Air 97.7 01/18/18 21:03 126/76 01/18/18 20:44 102 126/76 01/18/18 20:00 97.3 102 20 126/76 98 Room Air 97.3 01/18/18 17:57 112/68 01/18/18 16:00 98.6 80 18 107/67 97 Room Air 98.6 01/18/18 14:00 106/72 Height (Feet): 5 Height (Inches): 10.00 Weight (Pounds): 162 General Appearance: no acute distress HEENT: normocephalic, atraumatic, anicteric, mucous membranes moist, EOMI, supple, no JVD Respiratory/Chest: lungs clear, normal breath sounds, no respiratory distress, no accessory muscle use Cardiovascular: normal rate, regular rhythm, no gallop/murmur, no JVD Abdomen: normal bowel sounds, soft, non tender, no organomegaly, non distended Genitourinary: other - + reagan - urine clear Extremities: no cyanosis, other - left and right foot exams - no pain, no erythema, no sweeling, no wounds, no drainage Skin: no rash Neurologic/Psychiatric: thread separator II-XII grossly normal, alert, oriented x 3, responsive, motor weakness - left side Lymphatic: no neck adenopathy Musculoskeletal: no effusion Objective MRI Brain: IMPRESSION: 1. Acute small area of right parietal infarct. No hemorrhage. No mass effect or midline shift. 2. Involutional changes with small vessel disease. Chest -x-ray - 01/01 and 01/04 - no consolidation Chest x-ray - 01/06 - copd, no consolidation identified, report noted CT - abdomen/pelvis - IMPRESSION: 1. The right psoas muscle is prominent when compared to the left. There is some mild infiltration of the fat adjacent to the right psoas muscle. Some mild increased density is suspected within the right psoas muscle. This is suspicious for a hematoma. The suspected hematoma cannot be from the adjacent musculature. The right psoas muscle and suspected hematoma together measure approximately 4.8 cm in maximum transverse dimensions. Evaluation for active bleeding cannot be performed without IV contrast. An infectious process or neoplastic process cannot be excluded radiographically. 2. Cardiomegaly. 3. Diverticulosis without evidence for diverticulitis. 01/06 - Chest x-ray - copd (report noted) 01/12 - chest x-ray; Findings: Pacemaker in the left anterior chest wall. There is no pneumothorax. There is blunting of the left costophrenic angle which is likely due to a small pleural effusion. Heart is enlarged. PICC line again noted. IMPRESSION: Pacemaker in good position. No pneumothorax WBC scan - pending Laboratory Tests Test 01/19/18 06:42 White Blood Count 11.4 K/UL (4.8-10.8) H Red Blood Count 3.58 M/UL (4.70-6.10) L Hemoglobin 10.2 G/DL (14.2-18.0) L Hematocrit 32.1 % (42.0-52.0) L Mean Corpuscular Volume 90 FL (80-99) Mean Corpuscular Hemoglobin 28.4 PG (27.0-31.0) Mean Corpuscular Hemoglobin Concent 31.7 G/DL (32.0-36.0) L Red Cell Distribution Width 14.9 % (11.6-14.8) H Platelet Count 151 K/UL (150-450) Mean Platelet Volume 10.2 FL (6.5-10.1) H Neutrophils (%) (Auto) 80.0 % (45.0-75.0) H Lymphocytes (%) (Auto) 11.4 % (20.0-45.0) L Monocytes (%) (Auto) 5.5 % (1.0-10.0) Eosinophils (%) (Auto) 2.5 % (0.0-3.0) Basophils (%) (Auto) 0.6 % (0.0-2.0) Sodium Level 142 MMOL/L (136-145) Potassium Level 4.0 MMOL/L (3.5-5.1) Chloride Level 107 MMOL/L (98-107) Carbon Dioxide Level 24 MMOL/L (21-32) Anion Gap 11 mmol/L (5-15) Blood Urea Nitrogen 29 mg/dL (7-18) H Creatinine 2.2 MG/DL (0.55-1.30) H Estimat Glomerular Filtration Rate mL/min (>60) Glucose Level 128 MG/DL (74-106) H Calcium Level 9.2 MG/DL (8.5-10.1) Current Medications Medications (Trade) Dose Ordered Sig/Denny Route PRN Reason Start Time Stop Time Status Last Admin Dose Admin Acetaminophen (Tylenol) 650 mg Q4H PRN ORAL T>100.5, MILD PAIN (1-3) 01/14/18 18:21 01/31/18 18:20 Acetaminophen (Tylenol) 650 mg Q6H PRN ORAL HEADACHE 01/14/18 18:20 02/11/18 18:19 Acetaminophen/ Codeine Phosphate (Tylenol #3) 1 tab Q4H PRN ORAL Moderate Pain (Pain Scale 4-6) 01/14/18 18:21 01/19/18 18:20 Allopurinol (Allopurinol) 300 mg DAILY ORAL 01/15/18 09:00 02/03/18 08:59 01/19/18 08:35 Atorvastatin Calcium (Lipitor) 80 mg BEDTIME ORAL 01/14/18 21:00 02/03/18 20:59 01/18/18 20:44 Carvedilol (Coreg) 3.125 mg EVERY 12 HOURS ORAL 01/14/18 21:00 01/31/18 20:59 01/18/18 20:44 Cefepime HCl 1 gm/ Dextrose 110 ml @ 220 mls/hr Q24H IVPB 01/15/18 17:00 01/22/18 23:59 01/18/18 17:57 Chlorhexidine Gluconate (Caitlin-Hex 2%) 1 applic DAILY@2000 TOPIC 01/14/18 20:00 02/01/18 19:59 01/18/18 20:43 Dextrose (Dextrose 50%) 25 ml STAT PRN IV Hypoglycemia 01/14/18 18:23 02/13/18 18:22 Dextrose (Dextrose 50%) 50 ml STAT PRN IV Hypoglycemia 01/14/18 18:23 02/13/18 18:22 Fluconazole (Diflucan) 200 mg DAILY@2000 ORAL 01/15/18 20:00 01/22/18 19:59 01/18/18 20:44 Furosemide (Lasix) 40 mg DAILY IV 01/15/18 09:00 02/03/18 20:59 01/19/18 08:35 Hydralazine HCl (Apresoline) 50 mg Q8HR ORAL 01/14/18 22:00 01/31/18 13:59 01/19/18 05:04 Insulin Aspart (NovoLOG) BEFORE MEALS AND HS SUBQ 01/14/18 21:00 02/03/18 16:29 01/19/18 12:21 Isosorbide Dinitrate (Isordil) 10 mg Q6HR ORAL 01/15/18 00:00 01/31/18 17:59 01/19/18 05:04 Linezolid 300 ml @ 300 mls/hr EVERY 12 HOURS IVPB 01/14/18 21:00 01/21/18 23:59 01/19/18 08:35 Metronidazole (Flagyl) 500 mg EVERY 8 HOURS ORAL 01/15/18 22:00 01/22/18 21:59 01/19/18 05:04 Olanzapine (ZyPREXA) 2.5 mg HSPRN PRN ORAL Agitation 01/14/18 18:24 02/13/18 18:23 Ondansetron HCl (Zofran) 4 mg Q6H PRN IVP Nausea & Vomiting 01/14/18 18:24 02/11/18 18:23 Pantoprazole (Protonix) 40 mg EVERY 12 HOURS ORAL 01/14/18 21:00 01/31/18 20:59 01/19/18 08:34 Potassium Chloride (K-Dur) 40 meq BID ORAL 01/17/18 18:00 02/16/18 08:59 01/19/18 08:35 Tamsulosin HCl (Flomax) 0.4 mg Q12HR ORAL 01/15/18 09:00 02/14/18 08:59 01/19/18 08:35 Ted Gonzalez MD Jan 19, 2018 14:01
[2018-01-19] MEDS ORDERED: DIFLUCAN100 MG ORAL (14:21)
[2018-01-19] MEDS ORDERED: COREG3.125 MG ORAL (14:21)
[2018-01-19] MEDS ORDERED: TYLENOL WITH C1 EACH ORAL (14:21)
[2018-01-19] MEDS ORDERED: LIPITOR80 MG ORAL (14:21)
[2018-01-19] MEDS ORDERED: ALLOPURINOL100 M1 ORAL (14:21)
[2018-01-19] MEDS ORDERED: PROTONIX40 MG ORAL (14:21)
[2018-01-19] MEDS ORDERED: NOVOLOG100 UNITS1 SUBQ (14:24)
[2018-01-19] MEDS ORDERED: FLAGYL500 MG ORAL (14:24)
[2018-01-19] MEDS ORDERED: APRESOLINE50 MG ORAL (14:24)
[2018-01-19] MEDS ORDERED: FUROSEMIDE40 MG ORAL (14:24)
[2018-01-19] MEDS ORDERED: ISOSORBIDE DINI10 MG ORAL (14:24)
[2018-01-19] MEDS ORDERED: LINEZOLID600 MG/300 IV (14:26)
[2018-01-19] MEDS ORDERED: CEFEPIME-D1 GM/50 ML IVPB (14:26)
[2018-01-19] MEDS ORDERED: VENTOLIN HFA18 GM INH (14:27)
--- NOTE | 2018-01-19 14:32 | Discharge Summary ---
Discharge Summary Hospital Course Date of Admission January 01, 2018 at 01:47 Date of Discharge 01/19/18 Admitting Diagnosis CEREBROVASCULAR ACCIDENT, CONGESTIVE HEART FAILURE ZEESHAN Winslow is a 77 year old male who was admitted on January 01, 2018 at 01:47 for Cerebrovascular Accident, Congestive Heart Failure This is a 77 y/o male with a PMH of severe systolic CHF (EF 15% recently at [facility]), severe cardiomyopathy, renal failure, and asthma that presented to the ED last night for acute left-sided weakness and SOB. In the ED, CT brain was done, which was negative for acute pathology. Patient's last known well was 2100. Given patient's acute symptoms, patient was treated for a possible CVA with tPA at 0300. The ER physician discussed this case with [facility] neurology and given NIH stroke scale was 2, patient was not transferred to a stroke center. Patient was also noted to have increasing SOB and wheezing with bilateral lowe rextremity edema. WBC was also 18 but UA and CXR were negative. Patient was given levaquin in the ED. Patient was also given IV lasix and IV methylprednisolone 125mg. Today, patient continues to report mild sob but better since yesterday. Patient also continues to report left sided weakness that has not improved. NIH stroke scale was recalculated this AM and it was 5. Denies chest pain, sob, n/v, abdominal pain, headache. at bedside. Consultations Cardiology, Dr. Howard Neurology, Dr. Marco GRUBBS, Dr. Witt Procedures indium scan s/p [facility] Course #acute right parietal infarct - Neurology consulted, appreciate rec's - No need for transfer to stroke center at this time per neurology - NIH stroke scale last night was 2 prior to TPA. Repeat NIH stroke scale is 5 - s/p tPA given at 0300 on 01/01 - CT head on 01/01 at 0100 was negative. - MRI brain showing acute small right parietal infarct with no hemorrhage, midline shift, or mass effect - continue permissive hypertension to systolic 160-180s x 24 hours - MRA brain and neck without contrast showing attenuated appearance of the distal right middle cerebral artery likely due to technical issues. Also with short segment stenotic appearance of the right proximal ICA, cannot exclude high -grade stenosis. - carotid U/S negative - repeat CT with no bleed, showing acute infarct. also with some corresponding edema without significant mass effect - ECHO with doppler showing 25-30% EF, pulmonary hypertension, and left ventricular hypokinesis - bilateral venous duplex negative - check lipid panel and A1c - ST/PT/OT eval - Passed swallow eval, on pureed. video swallow study done - neurochecks q4hr - LDL 83. Start lipitor 80mg qhs - will start ASA 81mg when ok per cardiology #Acute asthma exacerbation - prednisone 40mg PO qd x 5 days (D5/5). discontinued as patient's wheezing resolved - duonebs ATC q6hr - ABGs #Sepsis/leukocytosis, unknown etiology - ID consulted, appreciate rec's - oncologist consulted, appreciate rec's --> given leukocytosis but no source/ etiology for infection - continue IV zosyn and diflucan per ID - CXR negative. Repeat CXR negative - trend CBC - WBC downtrending to [address] a/p showing questionable hematoma. C. diff negative. Urine cx/CXR negative. Blood cx NGTD. - indium white blood cell scan showing abnormal uptake to left first metatarsophalengeal but no s/s of infection. F/u XR of left foot to r/o osteomyelitis but low suspicion. OKAY TO DC TO [facility] PER ID AND WILL F/U WITH RESULTS. - continue cefepime/flagyl/zyvox x 2 days and diflucan x 5 days upon discharge #Acute on chronic systolic CHF / severe cardiomyopathy - cardiology consulted, appreciate rec's - strict I&O - 1.5 L fluid restriction - lasix 40mg qd, isosordil 10mg q6hr, hydralazine 50mg q8hr - permissive HTN with systolic 160-180s given acute CVA till 01/02 - dobutamine gtt titrated down to 1 mcg/min -- dc'ed per cards on 01/11 - s/p PICC line 01/03 - EF 25-30% - s/p biotronic dual chamber ICD implant on 01/12/18. Interrogated and showed normal function. #FIONA due to cardiorenal syndrome - nephrology consulted, appreciate rec's - trend Cr, downtrending. 2.2 upon discharge - check urine lytes - avoid IVF given CHF exacerbation #Hypokalemia - replete electrolytes prn. monitor BMP and Mg #HLD - start lipitor 80mg #Prediabetes - A1c 6.2 - will start MURIEL for now - will discharge patient on glypizide. metformin contraindicated in ARF #Poor PO intake - ST eval and treat - RD consulted DISCHARGED TO [facility]. CLEARED PER ID/HEMATOLOGY/CARDIOLOGY/NEUROLOGY. CONTINUE TO HOLD ASA 81MG AT THIS TIME TO PREVENT HEMATOMA FORMATION TO AREA OF DEFIBBRILLATOR. REEVALUATE IN 1 WEEK. Discharge Medications New Medications: Albuterol Sulfate (Ventolin Hfa) 18 Gm Hfa.aer.ad 1 PUFF INH EVERY 6 HOURS PRN, #18 GM 0 Refills Cefepime Hcl/D5w (Cefepime-Dextrose 1 Gm/50 Ml) 1 Gm/50 Ml Piggyback 1 GM IVPB Q24H for 2 Days, #2 BAG Furosemide* (Lasix*) 40 Mg Tablet 40 MG ORAL DAILY for 30 Days, #30 TAB Glipizide (Glipizide) 10 Mg Tablet 10 MG PO DAILY for 30 Days, #30 TAB Linezolid (Linezolid) 600 Mg/300 Ml Iv.soln 600 MG IV Q12HR for 2 Days, #4 BAG Acetaminophen With Codeine 300MG/30MG (T#3)* (Tylenol With Codeine #3 Tablet*) Y Tab 1 TAB ORAL Q4H PRN for 30 Days, #30 TAB Allopurinol* (Allopurinol*) 100 Mg Tablet 300 MG ORAL DAILY for 30 Days, #30 TAB Atorvastatin (Lipitor) 80 Mg Tablet 80 MG ORAL BEDTIME for 30 Days, #30 TAB Carvedilol (Coreg) 3.125 Mg Tablet 3.125 MG ORAL EVERY 12 HOURS for 30 Days, #30 TAB Fluconazole* (Diflucan*) 100 Mg Tablet 200 MG ORAL DAILY@2000 for 5 Days, #10 TAB Hydralazine HCl (Hydralazine HCl) 50 Mg Tablet 50 MG ORAL Q8HR for 30 Days, #120 TAB Insulin Aspart (Novolog Flexpen) 100 Unit/1 Ml Insuln.pen 0 UNITS SUBQ BEFORE MEALS AND HS for 30 Days, #30 EA Isosorbide Dinitrate* (Isordil*) 10 Mg Tablet 10 MG ORAL Q6HR for 30 Days, #120 TAB Metronidazole* (Flagyl*) 500 Mg Tablet 500 MG ORAL EVERY 8 HOURS for 2 Days, #6 TAB Pantoprazole* (Protonix*) 40 Mg Tablet.dr 40 MG ORAL EVERY 12 HOURS for 30 Days, #60 TAB Continued Medications: Tamsulosin HCl (Flomax) 0.4 Mg Cap.er.24h 0.4 MG ORAL BID for 30 Days, CAP Discontinued Medications: Albuterol Sulfate (Ventolin Hfa) 18 Gm Hfa.aer.ad 1 PUFF INH EVERY 6 HOURS, #18 GM 0 Refills Amlodipine Besylate (Norvasc) 5 Mg Tab 5 MG ORAL DAILY, #30 TAB Azithromycin* (Zithromax*) 250 Mg Tablet 250 MG ORAL DAILY, TAB Furosemide* (Lasix*) 20 Mg Tablet 20 MG ORAL DAILY, #30 TAB Furosemide* (Lasix*) 40 Mg Tablet 40 MG ORAL DAILY, TAB Hydralazine HCl (Hydralazine HCl) 50 Mg Tablet 50 MG ORAL Q8HR for 30 Days, TAB Hydrochlorothiazide* (Hydrochlorothiazide*) 25 Mg Tablet 25 MG ORAL DAILY for 20 Days, #20 TAB Isosorbide Dinitrate* (Isordil*) 10 Mg Tablet 10 MG ORAL Q6HR for 30 Days, TAB Losartan Potassium* (Cozaar*) 50 Mg Tablet 100 MG ORAL DAILY, TAB Methylprednisolone (Methylprednisolone*) 4 Mg Tab.ds.pk 4 MG ORAL .as directed, #1 EA 0 Refills Metoprolol Succinate* (Toprol Xl*) 100 Mg Tab.er.24h 100 MG ORAL DAILY, TAB 0 Refills No Known Medications* (NKM - No Known Medications*) . 0 ., 0 Refills Nystatin* (Nystatin*) 100,000 Unit/1 Ml Oral.susp 5 ML ORAL THREE TIMES A DAY, ML Swish in the mouth and retain for as long as possible (several minutes) before swallowing Prednisone (Prednisone) 20 Mg Tablet 40 MG PO DAILY for 4 Days, #4 TAB Discharge Condition Upon Discharge: improving, stable Discharge Disposition Patient was discharged to acute rehab, [facility]. Discharge Diagnoses: (1) CKD (chronic kidney disease) (2) CHF (congestive heart failure) (3) Respiratory distress (4) HTN (hypertension) (5) Dyspnea (6) Leukocytosis (7) Prediabetes (8) HLD (hyperlipidemia) (9) Hypokalemia (10) Peripheral edema (11) Malnutrition (12) Asthma exacerbation (13) FIONA (acute kidney injury) (14) CVA (cerebral vascular accident) (15) Proteinuria (16) CHF exacerbation (17) Cardiomyopathy Diane Silva NP Jan 19, 2018 14:32
[2018-01-19] MEDS ORDERED: GLIPIZIDE10 MG PO (14:40)
--- NOTE | 2018-01-19 16:56 | Diagnostic Imaging Report ---
Indication: Pain Technique: 3 views left foot Comparison: none Findings: There is hallux valgus and bunion formation. There are degenerative changes with subchondral cyst formation of the first metatarsal phalangeal joint. There is mild metatarsus adductus. There is mild hammertoe deformity of second through fifth digits. No acute fractures. No dislocations. The joint spaces are preserved. There is a small plantar spur Impression: No acute process. Findings as noted
[2018-01-19] MEDS: Cefepime HCl 1 GM in D5W 110 ML IVPB SCH (17:32)
--- NOTE | 2018-01-19 19:40 | Neurology Progress Note ---
Interim History Interim History Interim History Mr. Winslow feels better. He sat up in a chair for a few hours today. The AICD implant site is less painful. The mind is clearer. His appetite is not very good. His left side is still significantly weak but getting better. He is able to see well on his left side. He is aware of his left sided deficits. He however is still neglecting the left side. He has noted no new neurologic symptoms. Review of Systems Neuro Review of Systems Benign. Objective Physical Exam Last Vital Signs Date Time Temp Pulse Resp B/P (MAP) Pulse Ox O2 Delivery O2 Flow Rate FiO2 01/19/18 17:32 100/65 01/19/18 16:00 98.0 93 18 97 Room Air 98.0 01/13/18 11:25 3.0 Laboratory Tests Test 01/19/18 06:42 White Blood Count 11.4 K/UL (4.8-10.8) H Red Blood Count 3.58 M/UL (4.70-6.10) L Hemoglobin 10.2 G/DL (14.2-18.0) L Hematocrit 32.1 % (42.0-52.0) L Mean Corpuscular Volume 90 FL (80-99) Mean Corpuscular Hemoglobin 28.4 PG (27.0-31.0) Mean Corpuscular Hemoglobin Concent 31.7 G/DL (32.0-36.0) L Red Cell Distribution Width 14.9 % (11.6-14.8) H Platelet Count 151 K/UL (150-450) Mean Platelet Volume 10.2 FL (6.5-10.1) H Neutrophils (%) (Auto) 80.0 % (45.0-75.0) H Lymphocytes (%) (Auto) 11.4 % (20.0-45.0) L Monocytes (%) (Auto) 5.5 % (1.0-10.0) Eosinophils (%) (Auto) 2.5 % (0.0-3.0) Basophils (%) (Auto) 0.6 % (0.0-2.0) Sodium Level 142 MMOL/L (136-145) Potassium Level 4.0 MMOL/L (3.5-5.1) Chloride Level 107 MMOL/L (98-107) Carbon Dioxide Level 24 MMOL/L (21-32) Anion Gap 11 mmol/L (5-15) Blood Urea Nitrogen 29 mg/dL (7-18) H Creatinine 2.2 MG/DL (0.55-1.30) H Estimat Glomerular Filtration Rate mL/min (>60) Glucose Level 128 MG/DL (74-106) H Calcium Level 9.2 MG/DL (8.5-10.1) Neurologic Exam Objective PHYSICAL EXAMINATION: GENERAL: He is a well-developed relatively well-nourished black gentleman, lying in bed, in no acute distress. HEAD: Normocephalic and atraumatic. NECK: No neck rigidity was observed. EENT: Examination benign. NEUROLOGICAL EXAMINATION: MENTAL STATUS EXAMINATION: He was awake and alert. He was oriented to person, place, and time. He was able to recall 3/3 words immediately after 1 minute and after 3 minutes on the second trial. He was able to remember presidents, Trump through [employer] Senior. His mathematical skills were fairly good. His visuospatial function was preserved. SPEECH: He had a mild dysarthria. LANGUAGE: He had no aphasia. CRANIAL NERVES EXAMINATION: II: The visual field were full on confrontation testing. III, IV & : External ocular movements were full and the pupils 3 mm in diameter, equal, round, regular, and reactive to light. V: He had normal facial sensations and the temporales, masseters, and pterygoids functioned normally. VII: He had left seventh central facial paresis. VIII: He was able to hear well bilaterally and had no nystagmus. IX: The palate moved symmetrically on phonation. X: He had no hoarseness of voice. XI: The sternocleidomastoids and trapezii functioned normally. XII: The tongue was in the midline without any fasciculations or atrophy. MOTOR SYSTEM: The tone was normal on the right side and diminished on the left side. Examination of muscle mass revealed no focal wasting. Examination of power revealed G 5/5 power in the right upper extremity. In the right lower extremity he also had G 5/5 power except for G 5-/5 power in the iliopsoas. On the left side, he had G 2/5 in the deltoid, G 1/5 in the biceps, G 0/5 in the triceps, G 0/5 in the wrist and fingers, G 3/5 in the hip rotators, G 4/5 in the quadriceps, hamstrings, ankle plantar flexors and toe flexors, and G 3/5 in the ankle dorsiflexors and toe extensors. SENSORY EXAMINATION: He tended to neglect his left side minimally. He made errors on testing for pinprick and light touch over his entire left body. In addition, he had normal graphesthesia on the right side and agraphesthesia on the left side. REFLEXES: 1+ on the right and 2++ on the left at the biceps, triceps, brachioradialis and knees. 0 at both ankles. The plantar response was flexor on the right and extensor on the left. COORDINATION: He performed well on [id number] testing on the right side. He was unable to perform on the left side. He was unable to perform [id number] testing bilaterally. STANCE & GAIT: Could not be tested. Impression/Recommendations Diagnostic Impression 1. Mr Agnes Winslow is a 77-year-old, right-handed, black gentleman, who does have a past history of hypertension, chronic kidney disease, cardiomyopathy, severe congestive heart failure with an ejection fraction at 15% in the near past and asthma. On 01/01/2018, he suddenly developed left-sided weakness. He was brought into the [facility] emergency room, diagnosed with a left brain stroke, and given tPA. Following that he became significantly weaker on his left side, has developed left-sided neglect, and some visual problems on that side. 2. He feels much better. The AICD implant site is less painful. The mind is clearer. His appetite is poor. His left side is still significantly weak but getting better. He is able to see well on his left side. He is aware of his left sided deficits. He however is still neglecting the left side. He has noted no new neurologic symptoms. 3. On neurological examination at this time, he is fully oriented, has mild problems with memory, has a mild dysarthria, he has a left seventh central facial paresis, a significant left hemiparesis, right proximal lower extremity weakness, a left hemisensory deficit and agraphesthesia, loss of deep tendon reflexes in the upper extremities with a brisk left knee jerk and extensor plantar response on the left side. 4. The CT scan of the brain without contrast performed on 01/01/2018 was read as being normal. 5. An MRI scan of the brain performed on 01/01/2018 revealed "an acute small area of right parietal infarct, but no other pathology". 6. The repeat CT of the brain done on 01/03/18 revealed an acute infarct in the right frontal and temporal lobes. No associated acute hemorrhage. 7. The carotid duplex scan was reported as being within normal limits. 8. 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 His neurologic function was improving. However his weakness got worse following the AICD implant but is now improving. Recommendations 1. Continue present management. 2. Physical, occupational and speech and language therapy. 3. Acute rehabilitation. 4. ASA 81 mg q day. 5. Continue Lipitor with LDL goal of <70. Arun Lara M.D., M.S.P.ARUN SANTOS Jan 19, 2018 19:40
[2018-01-19] MEDS: Dyna-Hex 2% Top Sol 2oz TOPIC SCH (20:26)
[2018-01-19] MEDS: Fluconazole 100mg tab ORAL SCH (20:26)
[2018-01-19] MEDS: Atorvastatin 80mg tab ORAL SCH (20:26)
== END 2018-01-19 21:25 | disposition short-term general hospital (02) | DRG 853 ==
LOC: EDBD → EMR 00:24 → 2E 01:47 → EDBEDREQ 02:40 → 2W 20:44 → 2E 01-08 17:31 → 4E 01-14 18:00
DX: A41.9 Sepsis, unspecified organism (principal); I63.9 Cerebral infarction, unspecified; I50.23 Acute on chronic systolic (congestive) heart failure; G93.40 Encephalopathy, unspecified; N17.9 Acute kidney failure, unspecified; I42.0 Dilated cardiomyopathy; G81.94 Hemiplegia, unspecified affecting left nondominant side; I13.0 Hypertensive heart and chronic kidney disease with heart failure and stage 1 through stage 4 chronic kidney disease, or unspecified chronic kidney disease; J44.1 Chronic obstructive pulmonary disease with (acute) exacerbation; R41.4 Neurologic neglect syndrome; E46 Unspecified protein-calorie malnutrition; N18.9 Chronic kidney disease, unspecified; R80.9 Proteinuria, unspecified; I27.20 Pulmonary hypertension, unspecified; R94.5 Abnormal results of liver function studies; D69.6 Thrombocytopenia, unspecified; D64.9 Anemia, unspecified; Z68.23 Body mass index [BMI] 23.0-23.9, adult; E87.6 Hypokalemia; R73.03 Prediabetes; E78.5 Hyperlipidemia, unspecified; F41.9 Anxiety disorder, unspecified; F32.9 Major depressive disorder, single episode, unspecified
CPT/HCPCS: 36415; 36569; 36600; 70450; 70544; 70547; 70551; 71045; 74176; 74230; 76937; 78807; 80048; 80053; 80061; 80076; 81003; 82248; 82550; 82553; 82803; 82962; 82977; 83036; 83735; 83880; 84100; 84300; 84443; 84484; 84550; 85007; 85025; 85610; 85730; 86140; 86592; 86705; 86709; 86803; 86900; 86901; 87040; 87086; 87324; 87340; 92610; 93005; 93306; 93880; 93970; 94003; 94150; 94640; 94664; 99291; A9570; J1815; J2370; J7620; J8499

== ENCOUNTER 2018-03-28 15:46 | Inpatient (IN) | payer MEDICARE ==
[~2018-03-28] VITALS: Ht 177.8 cm; Wt 61.7 kg
[2018-03-28 15:46] VITALS: BP 149/91
[~2018-03-28 15:46] MED LIST changes: +ALLOPURINOL100 M1 ORAL; +CEFEPIME-D1 GM/50 ML IVPB; +COREG3.125 MG ORAL; +COZAAR50 MG ORAL; +DIFLUCAN100 MG ORAL; +FLAGYL500 MG ORAL; +FUROSEMIDE40 MG ORAL; +GLIPIZIDE10 MG PO; +LINEZOLID600 MG/300 IV; +LIPITOR80 MG ORAL; +MEDROL DOSEPAK4 MG ORAL; +NOVOLOG100 UNITS1 SUBQ; +PROTONIX40 MG ORAL; +TYLENOL WITH C1 EACH ORAL; +VENTOLIN HFA18 GM INH; +ZITHROMAX250 MG ORAL
[2018-03-28] MEDS ORDERED: Albuterol ud Inhalation HHN ONE (16:00)
--- NOTE | 2018-03-28 16:00 | Emergency Room Report ---
History of Present Illness General Chief Complaint: Abnormal Labs Source: EMS Present Illness HPI Mr. Winslow is a 77-year-old male with history of CVA hemiplegia CAD COPD. Presents with abnormal labs elevated BNP 2467 today from previous baseline of 1700. Mr. Winslow has had worsening shortness of breath and wheezing requiring bronchodilator therapy than usual. More breathing treatments than normal. Also nasal congestion. He feels as if there is conditioning system at his facility is worsening his symptoms. He is a resident of [facility]. He does not notice any swelling. he denies any pain. Allergies: Coded Allergies: No Known Allergies (Unverified , 01/09/14) Patient History Past Medical History: old chart reviewed Reviewed Nursing Documentation: PMH: Agreed; PSxH: Agreed Nursing Documentation-PMH Past Medical History: No History, Except For Hx Cardiac Problems: Yes - anemia Hx Hypertension: Yes Hx Pacemaker: Yes - left side Hx Asthma: Yes Hx COPD: No Hx Diabetes: No Hx Cancer: No Hx Gastrointestinal Problems: Yes - GERD Hx Dialysis: No - stage 3 kidney disease Hx Neurological Problems: No Hx Cerebrovascular Accident: Yes - left side weakness Hx Seizures: No Review of Systems Constitutional: Denies: fever, malaise Cardiovascular: Denies: chest pain Gastrointestinal: Denies: abdominal pain All Other Systems: negative except mentioned in HPI Physical Exam Vital Signs Date Time Temp Pulse Resp B/P (MAP) Pulse Ox O2 Delivery O2 Flow Rate FiO2 03/28/18 15:42 97.6 81 22 141/88 96 Room Air 97.5 Sp02 EP Interpretation: reviewed, normal General Appearance: no apparent distress, alert, GCS 15, non-toxic Head: normocephalic, atraumatic Eyes: bilateral eye normal inspection ENT: hearing grossly normal, normal pharynx, no angioedema, normal voice Neck: full range of motion, supple/symm/no masses Respiratory: chest non-tender, no respiratory distress, rales, rhonchi, speaking full sentences, wheezing, expiration Cardiovascular #1: regular rate, rhythm, no edema Gastrointestinal: normal bowel sounds, non tender, soft, non-distended, no guarding Rectal: deferred Musculoskeletal: back normal Neurologic: alert, oriented x3, responsive Psychiatric: judgement/insight normal, memory normal, mood/affect normal Skin: normal color, no rash, warm/dry, well hydrated Medical Decision Making Diagnostic Impression: Primary Impression: CHF (congestive heart failure) Additional Impression: CKD (chronic kidney disease) ER Course Mr. Winslow will be admitted for acute CHF exacerbation. Labs Test 03/28/18 16:00 White Blood Count 8.5 K/UL (4.8-10.8) Red Blood Count 4.30 M/UL (4.70-6.10) Hemoglobin 12.9 G/DL (14.2-18.0) Hematocrit 39.2 % (42.0-52.0) Mean Corpuscular Volume 91 FL (80-99) Mean Corpuscular Hemoglobin 30.0 PG (27.0-31.0) Mean Corpuscular Hemoglobin Concent 32.9 G/DL (32.0-36.0) Red Cell Distribution Width 15.3 % (11.6-14.8) Platelet Count 144 K/UL (150-450) Mean Platelet Volume 8.8 FL (6.5-10.1) Neutrophils (%) (Auto) 68.1 % (45.0-75.0) Lymphocytes (%) (Auto) 14.8 % (20.0-45.0) Monocytes (%) (Auto) 8.6 % (1.0-10.0) Eosinophils (%) (Auto) 6.9 % (0.0-3.0) Basophils (%) (Auto) 1.7 % (0.0-2.0) Sodium Level 139 MMOL/L (136-145) Potassium Level 3.6 MMOL/L (3.5-5.1) Chloride Level 106 MMOL/L (98-107) Carbon Dioxide Level 25 MMOL/L (21-32) Anion Gap 9 mmol/L (5-15) Blood Urea Nitrogen 14 mg/dL (7-18) Creatinine 1.6 MG/DL (0.55-1.30) Estimat Glomerular Filtration Rate mL/min (>60) Glucose Level 93 MG/DL (74-106) Calcium Level 9.5 MG/DL (8.5-10.1) Total Bilirubin 0.8 MG/DL (0.2-1.0) Aspartate Amino Transf (AST/SGOT) 24 U/L (15-37) Alanine Aminotransferase (ALT/SGPT) 13 U/L (12-78) Alkaline Phosphatase 66 U/L (46-116) Troponin I 0.012 ng/mL (0.000-0.056) Pro-B-Type Natriuretic Peptide 55471 pg/mL (0-125) Total Protein 6.8 G/DL (6.4-8.2) Albumin 3.6 G/DL (3.4-5.0) Globulin 3.2 g/dL Albumin/Globulin Ratio 1.1 (1.0-2.7) Lab Results Impression elevated BNP, CKD EKG Diagnostic Results EKG Time: 16:06 Rate: normal Rhythm: NSR ST Segments: no acute changes Other Impression rate 90 bpm left axis devation prolonged QT no ST elevation no signs of ischemia Chest X-Ray Diagnostic Results Chest X-Ray Diagnostic Results : Chest X-Ray Ordered: Yes # of Views/Limited/Complete: 1 View Indication: Shortness of Breath Impression: Other - bilateral pleural effusion Electronically Signed by: This image has been electronically signed by Dr. Vira Rios Last Vital Signs Date Time Temp Pulse Resp B/P (MAP) Pulse Ox O2 Delivery O2 Flow Rate FiO2 03/28/18 15:42 97.6 81 22 141/88 96 Room Air 97.5 VIRA RIOS Mar 28, 2018 16:00
--- NOTE | 2018-03-28 16:26 | Diagnostic Imaging Report ---
Indication: Shortness of breath Technique: One view of the chest Comparison: 01/12/2018 Findings: The heart is upper limits normal in size. Left chest AICD is again demonstrated. There are bilateral pleural effusions. This appears similar on the left, new or increased on the right. There are some atelectasis at both lung bases. The upper lungs are clear. Impression: Bilateral pleural effusions Borderline cardiomegaly Other findings as noted
[2018-03-28 16:27] LABS: ANION GAP 9 mmol/L (5-15); BLOOD UREA NITROGEN 14 mg/dL (7-18); CALCIUM 9.5 MG/DL (8.5-10.1); CARBON DIOXIDE 25 MMOL/L (21-32); CHLORIDE 106 MMOL/L (98-107); CREATININE 1.6 MG/DL (0.55-1.30); POTASSIUM 3.6 MMOL/L (3.5-5.1); SODIUM 139 MMOL/L (136-145)
[2018-03-28 16:32] LABS: BASOPHILS % (AUTO) 1.7 % (0.0-2.0); EOSINOPHILS % (AUTO) 6.9 % (0.0-3.0); HEMATOCRIT 39.2 % (42.0-52.0); HEMOGLOBIN 12.9 G/DL (14.2-18.0); LYMPHOCYTES % (AUTO) 14.8 % (20.0-45.0); MEAN CORPUSCULAR VOLUME 91 FL (80-99); MONOCYTES % (AUTO) 8.6 % (1.0-10.0); NEUTROPHILS % (AUTO) 68.1 % (45.0-75.0); PLATELET COUNT 144 K/UL (150-450); RED CELL DISTRIBUTION WIDTH 15.3 % (11.6-14.8); WHITE BLOOD COUNT 8.5 K/UL (4.8-10.8)
[2018-03-28 16:38] LABS: ALANINE AMINOTRANSFERASE 13 U/L (12-78); ALBUMIN 3.6 G/DL (3.4-5.0); ALBUMIN/GLOBULIN RATIO 1.1 (1.0-2.7); ALKALINE PHOSPHATASE 66 U/L (46-116); ASPARTATE AMINO TRANSFERASE 24 U/L (15-37); BILIRUBIN,TOTAL 0.8 MG/DL (0.2-1.0)
[2018-03-28 19:30] VITALS: BP 142/82
[2018-03-28] MEDS ORDERED: ISOSORBIDE DINI10 MG ORAL (20:49)
[2018-03-28] MEDS ORDERED: POLYVINYL ALCOH15 ML OP (20:49)
[2018-03-28] MEDS ORDERED: HYDRALAZINE HCL50 MG ORAL (20:49)
[2018-03-28] MEDS ORDERED: CALCIUM CARBON500 M1 PO (20:49)
[2018-03-28] MEDS ORDERED: BISACODYL5 MG ORAL (20:49)
[2018-03-28] MEDS ORDERED: ACETAMINOPHEN325 M1 ORAL (20:49)
[2018-03-28] MEDS ORDERED: FOLIC ACID1 MG ORAL (20:49)
[2018-03-28] MEDS ORDERED: MILK OF MA400 MG/51 ORAL (20:49)
[2018-03-28] MEDS ORDERED: CARVEDILOL3.125 MG ORAL (20:49)
[2018-03-28] MEDS ORDERED: HEPARIN SO5000 UNIT2 SUBQ (20:49)
[2018-03-28] MEDS ORDERED: SENNA8.6 M2 PO (20:49)
[2018-03-28] MEDS ORDERED: ZOFRAN4 M3 ORAL (20:49)
[2018-03-28 22:50] VITALS: BP 145/87
[2018-03-29] VITALS (7 sets, daily range): BP systolic 107–139; BP diastolic 60–86
[2018-03-29] MEDS ORDERED: Albuterol 2mg Tab ORAL PRN
[2018-03-29] MEDS ORDERED: Tums 500mg ORAL PRN
[2018-03-29] MEDS ORDERED: Artificial Tears 1.4% Op Soln BOTH EYES PRN
[2018-03-29] MEDS ORDERED: Albuterol ud Inhalation ONE (00:41)
[2018-03-29] MEDS ORDERED: Zolpidem 5mg tab ORAL PRN (00:45)
[2018-03-29] MEDS ORDERED: Milk of Magnesia 30ml Ud ORAL PRN (00:45)
[2018-03-29] MEDS: HydrALAZINE 50mg tab ORAL SCH ×3 (05:57→21:53)
[2018-03-29] MEDS ORDERED: Albuterol ud Inhalation HHN PRN (07:15)
[2018-03-29 07:32] LABS: EOSINOPHILS % (AUTO) 9.1 % (0.0-3.0); HEMATOCRIT 38.4 % (42.0-52.0); HEMOGLOBIN 12.4 G/DL (14.2-18.0); LYMPHOCYTES % (AUTO) 18.4 % (20.0-45.0); MEAN CORPUSCULAR VOLUME 92 FL (80-99); MONOCYTES % (AUTO) 9.9 % (1.0-10.0); NEUTROPHILS % (AUTO) 61.7 % (45.0-75.0); PLATELET COUNT 123 K/UL (150-450); RED BLOOD COUNT 4.15 M/UL (4.70-6.10); RED CELL DISTRIBUTION WIDTH 15.3 % (11.6-14.8); WHITE BLOOD COUNT 6.9 K/UL (4.8-10.8)
[2018-03-29 07:52] LABS: CREATINE KINASE 43 U/L (26-308)
[2018-03-29 08:08] LABS: ALANINE AMINOTRANSFERASE 11 U/L (12-78); ALKALINE PHOSPHATASE 54 U/L (46-116); ANION GAP 9 mmol/L (5-15); ASPARTATE AMINO TRANSFERASE 16 U/L (15-37); BILIRUBIN,TOTAL 0.7 MG/DL (0.2-1.0); BLOOD UREA NITROGEN 13 mg/dL (7-18); CARBON DIOXIDE 28 MMOL/L (21-32); CHLORIDE 107 MMOL/L (98-107); CHOLESTEROL 135 MG/DL (< 200); CREATININE 1.6 MG/DL (0.55-1.30); HDL CHOLESTEROL 49 MG/DL (40-60); POTASSIUM 3.3 MMOL/L (3.5-5.1); SODIUM 144 MMOL/L (136-145); TRIGLYCERIDES 67 MG/DL (30-150)
[2018-03-29] MEDS: Tamsulosin 0.4mg cap ORAL SCH ×2 (08:38→17:32)
[2018-03-29] MEDS: Carvedilol 6.25mg Tab ORAL SCH ×2 (08:41→17:23)
[2018-03-29] MEDS: Spironolactone 25mg tab ORAL SCH (08:41)
[2018-03-29] MEDS: Heparin 5000 units/ml inj SUBQ SCH ×2 (09:00→21:53)
--- NOTE | 2018-03-29 10:58 | Consultation ---
DATE OF CONSULTATION: 03/28/2018 CARDIOLOGY PROGRESS NOTE CONSULTING PHYSICIAN: Irvin Subramanian M.D. REQUESTING PHYSICIAN: Dheeraj Boggs M.D. REASON FOR CONSULTATION: Acute on chronic congestive heart failure with systolic dysfunction and cardiac defibrillator. HISTORY OF PRESENT ILLNESS: This is a 77-year-old male. He has a known history of ischemic heart disease with left ventricular systolic dysfunction and a cardiac defibrillator. He was hospitalized here several months ago with acute heart failure and sepsis. He has been residing at a correction facility. He was referred here because of increasing shortness of breath, congestion and wheezing. In the emergency room, his workup was notable for radiographic and laboratory signs of acute congestive heart failure. PAST MEDICAL HISTORY: 1. Coronary artery disease. 2. Cardiac defibrillator. 3. Bronchospastic lung disease. 4. Gastroesophageal reflux disease. 5. Cerebrovascular accident with left-sided weakness. 6. Anemia of chronic disease. 7. Hypertension with hypertensive heart disease. 8. Chronic kidney disease. 9. History of renal failure. 10. Prostatic hypertrophy. ALLERGIES: None. MEDICATIONS: Prior to admission, reviewed and reconciled. FAMILY HISTORY: Noncontributory. SOCIAL HISTORY: No current smoking, alcohol or substance abuse. There is a distant history of smoking however. REVIEW OF SYSTEMS: An echocardiogram done several months ago confirmed an ejection fraction of less than 20%. He has a [employer]ot[employer] cardiac defibrillator with interrogation in 12/2017 revealing adequate function. There is no history of diabetes or thyroid disorder. The patient has been on steroids in the past for his obstructive lung disease. He has been using increasing nebulizer therapies over the past few days with no improvement in his shortness of breath. PHYSICAL EXAMINATION: VITAL SIGNS: Afebrile, blood pressure 141/88, pulse 81, respiratory rate 22, and oxygen saturation 96% on room air. NECK: Jugular venous pressure elevated. Neck is supple. LUNGS: With diminished breath sounds and scattered rales. CARDIAC: Regular rhythm and rate. Normal S1, paradoxically split S2. A 1/6 systolic murmur at apex. ABDOMEN: Soft and nontender. No guarding or rebound. EXTREMITIES: With dependent edema of bilateral legs. LABORATORY AND DIAGNOSTIC DATA: Chest x-ray reveals bilateral pleural effusions and pulmonary venous congestion. Pro-natriuretic peptide is over 16,000. EKG reveals sinus rhythm with incomplete left bundle-branch block. White count is 8.5 and hemoglobin 12.9. Troponin 0.012. BUN 14, creatinine 1.6, and potassium 3.6. IMPRESSION: 1. Acute on chronic systolic congestive heart failure. 2. Dilated cardiomyopathy. 3. Chronic kidney disease. 4. CVA with left-sided weakness. 5. Hypertensive heart disease. 6. COPD. 7. Cardiac defibrillator. PLAN: Diuretic therapy intravenously with furosemide, Aldactone for potassium-sparing affects, and maximize carvedilol dosing as well as hydralazine and isosorbide combination for adequate afterload reduction. Monitor volume status and cardiorenal parameters closely especially in view of prior history of renal failure. Reconsider angiotensin-converting enzyme inhibitor therapy, although records in the past revealed that this therapy was not tolerated and precipitated worsening renal impairment. Trend natriuretic peptide assay. DVT prophylaxis. Irvin Subramanian M.D. DR: MARY JOB#: [id number] CC:
--- NOTE | 2018-03-29 15:26 | Cardiology Report ---
APPROVED REPORT EXAM: Two-dimensional and M-mode echocardiogram with Doppler and color Doppler. INDICATION Congestive Heart Failure M-Mode DIMENSIONS IVSd1.5 (0.7-1.1cm)Left Atrium (MM)4.2 (1.6-4.0cm) LVDd6.5 (3.5-5.6cm)Aortic Root3.1 (2.0-3.7cm) PWd1.3 (0.7-1.1cm)Aortic Cusp Exc.1.6 (1.5-2.0cm) IVSs1.5 cm LVDs5.9 (2.5-4.0cm) PWs0.9 cm Global left ventricular hypokinesis . Mild left ventricular enlargements . Left ventricular ejection fraction estimated to be 15-20%. No evidence of ventricular hypertrophy . Small posteriror pericardial effusion. Plueral effusion present. All other cardiac chamber sizes are within normal limits. Focal aortic valve sclerosis with adequate cusp excursion. Thickened mitral valve leaflets with normal excursion. Mitral annulus and aortic root calcification. Pulmonic valve not well visualized. Normal tricuspid valve structure. IVC at size 2.6 without physiologic collapse, collapse suggestive of increased RA pressure. A color flow and spectral Doppler study was performed and revealed: Mild aortic regurgitation. Mild to moderate mitral regurgitation. Mitral inflow velocities indicates possible pseudo normalization pattern implying moderately elevated left atrial pressure (Grade II ) Mild tricuspid regurgitation. Tricuspid systolic velocities suggests peak right ventricular systolic pressure of 39mmHg,consistent with mild pulmonary hypertension . Moderate pulmonic regurgitation present .
--- NOTE | 2018-03-29 15:35 | Cardiology Report ---
APPROVED REPORT EKG Measurement Heart [id number] AL [id number] Sinus rhythm with 1st degree AV block with frequent premature ventricular complexes and premature atrial complexes Left axis deviation Pulmonary disease pattern Prolonged QT Abnormal ECG
--- NOTE | 2018-03-29 19:25 | History & Physical ---
History and Physical History & Physicial 77-year-old male transferred from SNF due to elevated BP. He has a known history of ischemic heart disease with left ventricular systolic dysfunction and an AICD. He was hospitalized here several months ago with CHF and sepsis. Patient transferred due to increasing shortness of breath, congestion and wheezing. Patient started on therapy. Cardiology appreciated. Patient overall improved overnight PAST MEDICAL HISTORY: 1. CAD 2. AICD 3. COPD 4. GERD 5. Cerebrovascular accident with left-sided weakness. 6. Anemia of chronic disease. 7. Malnutrition 8. Chronic kidney disease. 9. History of renal failure. 10. BPH 11. CKD ALLERGIES: None. MEDICATIONS: reviewed and reconciled. FAMILY HISTORY: Noncontributory to the above. SOCIAL HISTORY: distant smoking; disabled; wants to return and live with REVIEW OF SYSTEMS: 10 point ROS reviewed PHYSICAL EXAMINATION: VITAL SIGNS: see attached WDWN NAD clear breath sounds bilaterally without rhonchi or wheeze [id number] without MRG; split P2 NABS nontender no HSM no CCE focal weakness and alert LABORATORY AND DIAGNOSTIC DATA: Laboratory Tests Test 03/29/18 06:40 White Blood Count 6.9 K/UL (4.8-10.8) Red Blood Count 4.15 M/UL (4.70-6.10) L Hemoglobin 12.4 G/DL (14.2-18.0) L Hematocrit 38.4 % (42.0-52.0) L Mean Corpuscular Volume 92 FL (80-99) Mean Corpuscular Hemoglobin 29.8 PG (27.0-31.0) Mean Corpuscular Hemoglobin Concent 32.3 G/DL (32.0-36.0) Red Cell Distribution Width 15.3 % (11.6-14.8) H Platelet Count 123 K/UL (150-450) L Mean Platelet Volume 9.5 FL (6.5-10.1) Neutrophils (%) (Auto) 61.7 % (45.0-75.0) Lymphocytes (%) (Auto) 18.4 % (20.0-45.0) L Monocytes (%) (Auto) 9.9 % (1.0-10.0) Eosinophils (%) (Auto) 9.1 % (0.0-3.0) H Basophils (%) (Auto) 1.0 % (0.0-2.0) Sodium Level 144 MMOL/L (136-145) Potassium Level 3.3 MMOL/L (3.5-5.1) L Chloride Level 107 MMOL/L (98-107) Carbon Dioxide Level 28 MMOL/L (21-32) Anion Gap 9 mmol/L (5-15) Blood Urea Nitrogen 13 mg/dL (7-18) Creatinine 1.6 MG/DL (0.55-1.30) H Estimat Glomerular Filtration Rate mL/min (>60) Glucose Level 88 MG/DL (74-106) Uric Acid 3.8 MG/DL (2.6-7.2) Calcium Level 9.0 MG/DL (8.5-10.1) Total Bilirubin 0.7 MG/DL (0.2-1.0) Aspartate Amino Transf (AST/SGOT) 16 U/L (15-37) Alanine Aminotransferase (ALT/SGPT) 11 U/L (12-78) L Alkaline Phosphatase 54 U/L (46-116) Total Creatine Kinase 43 U/L (26-308) Troponin I 0.024 ng/mL (0.000-0.056) Pro-B-Type Natriuretic Peptide 69958 pg/mL (0-125) H Total Protein 6.1 G/DL (6.4-8.2) L Albumin 3.0 G/DL (3.4-5.0) L Globulin 3.1 g/dL Albumin/Globulin Ratio 1.0 (1.0-2.7) Triglycerides Level 67 MG/DL (30-150) Cholesterol Level 135 MG/DL (< 200) LDL Cholesterol 83 mg/dL (<100) HDL Cholesterol 49 MG/DL (40-60) Cholesterol/HDL Ratio 2.8 (3.3-4.4) L Thyroid Stimulating Hormone (TSH) 1.297 uiU/mL (0.358-3.740) IMPRESSION: 1. Acute on chronic systolic congestive heart failure. 2. Dilated cardiomyopathy. 3. AICD 4. elevated BNP 5. Hypertensive heart disease. 6. COPD. 7. Cardiac defibrillator. 8. CKD 9. COPD PLAN: resume meds diurese with caution cards rx noted oxygen as needed monitor labs optimize PT dc to home once cleared with cards impression, plan, and exam edited and reviewed in detail care discussed with Dheeraj Bryant MD Mar 29, 2018 19:25
--- NOTE | 2018-03-29 19:25 | General Progress Note ---
Subjective Allergies: Coded Allergies: No Known Allergies (Unverified , 01/09/14) Objective Last 24 Hour Vital Signs Date Time Temp Pulse Resp B/P (MAP) Pulse Ox O2 Delivery O2 Flow Rate FiO2 03/29/18 17:23 107/60 03/29/18 17:23 79 107/60 03/29/18 17:22 79 107/60 (76) 03/29/18 16:00 97.0 79 114/62 (79) 97.0 03/29/18 15:23 76 03/29/18 13:50 127/74 03/29/18 13:48 127/74 03/29/18 13:47 70 127/74 (91) 03/29/18 12:00 97.5 71 119/80 (93) 97.5 03/29/18 11:40 74 03/29/18 09:00 Room Air 03/29/18 08:41 82 139/81 03/29/18 08:39 139/81 03/29/18 08:00 97.1 82 139/81 (100) 97.1 82 03/29/18 07:45 84 15 Room Air 21 03/29/18 07:42 82 03/29/18 05:57 127/86 03/29/18 04:00 97.9 82 127/86 (100) 97.9 03/29/18 03:48 78 03/29/18 00:54 81 16 99 Room Air 21 03/29/18 00:51 89 16 98 Room Air 21 03/29/18 00:51 89 16 Room Air 21 03/29/18 00:01 Room Air 03/28/18 23:39 85 03/28/18 22:50 83 17 145/87 9 Room Air 03/28/18 22:50 97.6 81 15 145/87 100 Room Air 21 97.6 03/28/18 19:30 87 16 142/82 9 Room Air Intake and Output 03/28/18 03/29/18 19:00 07:00 Intake Total 240 ml Balance 240 ml Intake Oral 240 ml # Voids 5 Laboratory Tests 03/29/18 06:40: White Blood Count 6.9, Red Blood Count 4.15L, Hemoglobin 12.4L, Hematocrit 38.4L , Mean Corpuscular Volume 92, Mean Corpuscular Hemoglobin 29.8, Mean Corpuscular Hemoglobin Concent 32.3, Red Cell Distribution Width 15.3H, Platelet Count 123L, Mean Platelet Volume 9.5, Neutrophils (%) (Auto) 61.7, Lymphocytes (%) (Auto) 18.4L, Monocytes (%) (Auto) 9.9, Eosinophils (%) (Auto) 9.1H, Basophils (%) (Auto) 1.0, Sodium Level 144, Potassium Level 3.3L, Chloride Level 107, Carbon Dioxide Level 28, Anion Gap 9, Blood Urea Nitrogen 13 , Creatinine 1.6H, Estimat Glomerular Filtration Rate , Glucose Level 88, Uric Acid 3.8, Calcium Level 9.0, Total Bilirubin 0.7, Aspartate Amino Transf (AST/ SGOT) 16, Alanine Aminotransferase (ALT/SGPT) 11L, Alkaline Phosphatase 54, Total Creatine Kinase 43, Troponin I 0.024, Pro-B-Type Natriuretic Peptide 99435Z, Total Protein 6.1L, Albumin 3.0L, Globulin 3.1, Albumin/Globulin Ratio 1.0, Triglycerides Level 67, Cholesterol Level 135, LDL Cholesterol 83, HDL Cholesterol 49, Cholesterol/HDL Ratio 2.8L, Thyroid Stimulating Hormone (TSH) 1.297 Height (Feet): 5 Height (Inches): 10.00 Weight (Pounds): 140 Dheeraj Boggs MD Mar 29, 2018 19:25
[2018-03-29] MEDS: Albuterol 90mcg Inhaler 8gm INH PRN (20:42)
[2018-03-29] MEDS: Atorvastatin 80mg tab ORAL SCH (21:53)
[2018-03-29] MEDS: Sennosides 8.6mg ORAL SCH (21:53)
[2018-03-30] VITALS: BP 119/67
[2018-03-30 04:00] VITALS: BP 116/59
[2018-03-30] MEDS: Albuterol 90mcg Inhaler 8gm INH PRN (04:37)
--- NOTE | 2018-03-30 05:02 | Progress Note ---
DATE: 03/29/2018 CARDIOLOGY PROGRESS NOTE SUBJECTIVE: The patient has less shortness of breath. He still unable to lie flat. OBJECTIVE: VITAL SIGNS: Blood pressure 107/60, pulse 79, and respiratory rate 18. NECK: Jugular venous pressure elevated. LUNGS: With bilateral rales. CARDIAC: Regular rhythm and rate. Normal S1 and S2. A 1/6 systolic murmur at apex. ABDOMEN: Soft. EXTREMITIES: Trace edema. LABORATORY DATA: Labs reviewed notable for white count 6.9 and hemoglobin 12.4. Potassium 3.3, BUN 13, creatinine 1.6, uric acid 3.8, troponin is negative x2, and albumin 3.0. IMPRESSION: 1. Acute on chronic systolic congestive heart failure. 2. Hypokalemia. 3. Cardiac defibrillator. 4. Dilated cardiomyopathy. 5. Acute on chronic kidney disease. 6. Mild protein-calorie malnutrition. PLAN: 1. Maximize anti-failure regimen. 2. Replace potassium. 3. Check magnesium. 4. Continue diuresis. 5. Mobilization. Irvin Subramanian M.D. DR: OLGA JOB#: [id number] CC:
[2018-03-30] MEDS: HydrALAZINE 50mg tab ORAL SCH ×3 (05:25→22:20)
[2018-03-30 07:45] LABS: BASOPHILS % (AUTO) 1.2 % (0.0-2.0); EOSINOPHILS % (AUTO) 8.1 % (0.0-3.0); HEMATOCRIT 38.3 % (42.0-52.0); HEMOGLOBIN 12.1 G/DL (14.2-18.0); LYMPHOCYTES % (AUTO) 17.5 % (20.0-45.0); MEAN CORPUSCULAR VOLUME 92 FL (80-99); NEUTROPHILS % (AUTO) 65.1 % (45.0-75.0); PLATELET COUNT 129 K/UL (150-450); RED BLOOD COUNT 4.17 M/UL (4.70-6.10); RED CELL DISTRIBUTION WIDTH 15.2 % (11.6-14.8); WHITE BLOOD COUNT 7.5 K/UL (4.8-10.8)
[2018-03-30 08:00] VITALS: BP 121/73
[2018-03-30 08:23] LABS: ALANINE AMINOTRANSFERASE 12 U/L (12-78); ALKALINE PHOSPHATASE 58 U/L (46-116); ANION GAP 8 mmol/L (5-15); ASPARTATE AMINO TRANSFERASE 13 U/L (15-37); BILIRUBIN,TOTAL 0.6 MG/DL (0.2-1.0); BLOOD UREA NITROGEN 16 mg/dL (7-18); CARBON DIOXIDE 30 MMOL/L (21-32); CHLORIDE 105 MMOL/L (98-107); CREATININE 1.7 MG/DL (0.55-1.30); SODIUM 143 MMOL/L (136-145)
[2018-03-30] MEDS: Heparin 5000 units/ml inj SUBQ SCH ×2 (09:00→21:05)
[2018-03-30] MEDS: Albuterol ud Inhalation HHN PRN (10:11)
[2018-03-30] MEDS: Spironolactone 25mg tab ORAL SCH (10:13)
[2018-03-30] MEDS: Carvedilol 6.25mg Tab ORAL SCH ×2 (10:13→17:20)
[2018-03-30] MEDS: Tamsulosin 0.4mg cap ORAL SCH ×2 (10:13→17:19)
[2018-03-30 12:00] VITALS: BP 105/62
--- NOTE | 2018-03-30 14:41 | General Progress Note ---
Assessment/Plan Assessment/Plan IMPRESSION: 1. Acute on chronic systolic congestive heart failure. 2. Dilated cardiomyopathy. 3. AICD 4. elevated BNP 5. Hypertensive heart disease. 6. COPD. 7. Cardiac defibrillator. 8. CKD 9. COPD PLAN: maintain meds diurese as able cards rx noted oxygen as needed monitor labs optimize PT dc to home in am impression, plan, and exam edited and reviewed in detail care discussed with RN Subjective Allergies: Coded Allergies: No Known Allergies (Unverified , 01/09/14) Subjective care noted confirmed patient wants to go home has his at home Objective Last 24 Hour Vital Signs Date Time Temp Pulse Resp B/P (MAP) Pulse Ox O2 Delivery O2 Flow Rate FiO2 03/30/18 14:00 105/62 03/30/18 12:57 105/62 03/30/18 12:00 97.5 80 18 105/62 (76) 98 97.5 80 03/30/18 10:37 121/73 03/30/18 10:21 87 18 98 Room Air 21 03/30/18 10:14 83 18 96 Room Air 21 03/30/18 10:13 76 121/73 03/30/18 09:50 Room Air 03/30/18 08:00 97.5 78 19 121/73 (89) 98 97.5 74 03/30/18 08:00 76 03/30/18 05:25 116/59 03/30/18 04:39 61 18 98 Room Air 21 03/30/18 04:38 60 18 95 Room Air 21 03/30/18 04:00 97.7 74 24 116/59 (78) 98 97.7 74 03/30/18 03:33 74 03/30/18 00:00 97.6 70 20 119/67 (84) 98 97.6 70 03/29/18 23:30 82 03/29/18 21:53 118/73 03/29/18 21:00 Room Air 03/29/18 20:47 60 18 96 Room Air 21 03/29/18 20:46 56 18 96 Room Air 21 03/29/18 20:00 97.5 81 118/73 (88) 98 97.5 03/29/18 19:30 60 18 Room Air 21 03/29/18 19:18 82 03/29/18 17:23 107/60 03/29/18 17:23 79 107/60 03/29/18 17:22 79 107/60 (76) 03/29/18 16:00 97.0 79 114/62 (79) 97.0 03/29/18 15:23 76 Intake and Output 03/29/18 03/30/18 19:00 07:00 Intake Total 360 ml 650 ml Output Total 600 ml 600 ml Balance -240 ml 50 ml Intake Oral 360 ml 650 ml Output Urine Total 600 ml 600 ml # Bowel Movements 1 Laboratory Tests 03/30/18 06:21: White Blood Count 7.5, Red Blood Count 4.17L, Hemoglobin 12.1L, Hematocrit 38.3L , Mean Corpuscular Volume 92, Mean Corpuscular Hemoglobin 29.0, Mean Corpuscular Hemoglobin Concent 31.5L, Red Cell Distribution Width 15.2H, Platelet Count 129L, Mean Platelet Volume 9.3, Neutrophils (%) (Auto) 65.1, Lymphocytes (%) (Auto) 17.5L, Monocytes (%) (Auto) 8.0, Eosinophils (%) (Auto) 8.1H, Basophils (%) (Auto) 1.2, Sodium Level 143, Potassium Level 3.0L, Chloride Level 105, Carbon Dioxide Level 30, Anion Gap 8, Blood Urea Nitrogen 16 , Creatinine 1.7H, Estimat Glomerular Filtration Rate , Glucose Level 100, Calcium Level 9.0, Magnesium Level 1.4L, Total Bilirubin 0.6, Aspartate Amino Transf (AST/SGOT) 13L, Alanine Aminotransferase (ALT/SGPT) 12, Alkaline Phosphatase 58, Pro-B-Type Natriuretic Peptide 05206N, Total Protein 6.1L, Albumin 3.0L, Globulin 3.1, Albumin/Globulin Ratio 1.0 Height (Feet): 5 Height (Inches): 10.00 Weight (Pounds): 136 Objective WDWN NAD reduced breath sounds bilaterally without rhonchi or wheeze [id number] without RG; soft sys murmur AICD NABS nontender no HSM no CCE thin focal weakness Dheeraj Boggs MD Mar 30, 2018 14:41
[2018-03-30 16:00] VITALS: BP 133/73
[2018-03-30 20:00] VITALS: BP 100/60
[2018-03-30] MEDS: Sennosides 8.6mg ORAL SCH (21:02)
[2018-03-30] MEDS: Atorvastatin 80mg tab ORAL SCH (21:03)
[2018-03-31] VITALS: BP 120/74
[2018-03-31 04:00] VITALS: BP 115/67
[2018-03-31] MEDS: HydrALAZINE 50mg tab ORAL SCH (05:43)
[2018-03-31] MEDS: Albuterol ud Inhalation HHN PRN (06:37)
[2018-03-31 07:31] LABS: ANION GAP 5 mmol/L (5-15); BLOOD UREA NITROGEN 14 mg/dL (7-18); CALCIUM 8.6 MG/DL (8.5-10.1); CARBON DIOXIDE 31 MMOL/L (21-32); CHLORIDE 106 MMOL/L (98-107); CREATININE 1.6 MG/DL (0.55-1.30); POTASSIUM 3.9 MMOL/L (3.5-5.1); SODIUM 142 MMOL/L (136-145)
[2018-03-31] MEDS: Spironolactone 25mg tab ORAL SCH (08:28)
[2018-03-31] MEDS: Carvedilol 6.25mg Tab ORAL SCH (08:28)
[2018-03-31] MEDS: Tamsulosin 0.4mg cap ORAL SCH (08:28)
[2018-03-31] MEDS: Heparin 5000 units/ml inj SUBQ SCH (08:29)
--- NOTE | 2018-03-31 08:45 | Progress Note ---
DATE: 03/30/2018 INCOMPLETE DICTATION CARDIOLOGY PROGRESS NOTE SUBJECTIVE: The patient is anxious to go home. He does not want to return to prison facility. He has his to take care of him. The patient's defibrillator has not had any discharges. The patient has less shortness of breath. OBJECTIVE: VITAL SIGNS: Blood pressure 105/62, pulse 80, respiratory rate 18, afebrile. NECK: Jugular venous pressure is still elevated. LUNGS: With few rales. CARDIAC: Regular rhythm and rate. Normal S1 and S2. A 1/6 systolic murmur at apex. ABDOMEN: Soft and nontender. EXTREMITIES: With dependent edema. LABORATORY AND DIAGNOSTIC DATA: White count 7.5, hemoglobin 12.1. Sodium 143, potassium 3, bicarb 30, BUN 16, creatinine 1.7. Magnesium 1.4. Pro-natriuretic peptide 13,000. Albumin 3. Irvin Subramanian M.D. DR: Milagros JOB#: [id number] CC:
[2018-03-31 08:50] VITALS: BP 120/74
--- NOTE | 2018-03-31 10:27 | General Progress Note ---
Assessment/Plan Assessment/Plan IMPRESSION: 1. Acute on chronic systolic congestive heart failure. 2. Dilated cardiomyopathy. 3. AICD 4. elevated BNP 5. Hypertensive heart disease. 6. COPD. 7. Cardiac defibrillator. 8. CKD 9. COPD PLAN: home health doing well RX called in to pharmacy dc to home in am impression, plan, and exam edited and reviewed in detail care discussed with RN Subjective Allergies: Coded Allergies: No Known Allergies (Unverified , 01/09/14) Subjective care noted off oxygen has his at home Objective Last 24 Hour Vital Signs Date Time Temp Pulse Resp B/P (MAP) Pulse Ox O2 Delivery O2 Flow Rate FiO2 03/31/18 08:50 97.0 66 20 120/74 (89) 97 97.0 03/31/18 08:28 121/74 03/31/18 08:28 66 121/74 03/31/18 07:31 75 03/31/18 07:13 Room Air 03/31/18 06:45 78 18 98 Room Air 21 03/31/18 06:37 70 18 Room Air 21 03/31/18 06:37 70 18 98 Room Air 21 03/31/18 05:43 99/57 03/31/18 04:00 97.8 65 20 115/67 (83) 97 97.8 03/31/18 04:00 65 03/31/18 00:00 79 03/31/18 00:00 97.0 79 20 120/74 (89) 97 97.0 03/30/18 22:20 111/77 03/30/18 21:00 Room Air 03/30/18 20:00 72 03/30/18 20:00 97.5 72 20 100/60 (73) 95 97.5 03/30/18 20:00 72 18 Room Air 21 03/30/18 17:20 133/73 03/30/18 17:20 67 133/73 03/30/18 16:00 67 03/30/18 16:00 97.8 70 18 133/73 (93) 98 97.8 80 03/30/18 14:00 105/62 03/30/18 12:57 105/62 03/30/18 12:00 72 03/30/18 12:00 97.5 80 18 105/62 (76) 98 97.5 80 03/30/18 10:37 121/73 Intake and Output 03/30/18 03/31/18 19:00 07:00 Intake Total 200 ml Balance 200 ml IV Total 200 ml # Voids 2 # Bowel Movements 1 Laboratory Tests 03/31/18 06:00: Sodium Level 142, Potassium Level 3.9, Chloride Level 106, Carbon Dioxide Level 31, Anion Gap 5, Blood Urea Nitrogen 14, Creatinine 1.6H, Estimat Glomerular Filtration Rate , Glucose Level 103, Calcium Level 8.6, Pro-B-Type Natriuretic Peptide 7398H Height (Feet): 5 Height (Inches): 10.00 Weight (Pounds): 136 Objective WDWN NAD reduced breath sounds bilaterally without rhonchi or wheeze [id number] without RG; soft sys murmur AICD NABS nontender no HSM no CCE thin but alert focal weakness Dheeraj Boggs MD Mar 31, 2018 10:27
[2018-03-31] MEDS ORDERED: ISOSORBIDE DINI10 MG ORAL ×2 (10:55→10:57)
[2018-03-31] MEDS ORDERED: COREG6.25 MG ORAL (10:55)
[2018-03-31] MEDS ORDERED: SPIRONOLACTONE25 MG ORAL (10:55)
[2018-03-31] MEDS ORDERED: TAMSULOSIN HCL0.4 MG ORAL (10:55)
[2018-03-31 12:31] VITALS: BP 106/62
--- NOTE | 2018-04-01 00:45 | Progress Note ---
DATE: 03/31/2018 CARDIOLOGY PROGRESS NOTE SUBJECTIVE: The patient feels better. He has less shortness of breath. OBJECTIVE: VITAL SIGNS: Blood pressure 121/74, pulse 66, and respirations 18. NECK: Jugular venous pressure normal. LUNGS: Clear now. CARDIAC: Regular rhythm and rate. Normal S1 and S2 with a 1/6 systolic murmur at apex. ABDOMEN: Soft and nontender. No edema. Oxygen saturation on room air is 98%. IMPRESSION: 1. Acute on chronic systolic congestive heart failure, now compensated. 2. Hypomagnesemia status post replacement therapy. 3. Hypokalemia status post replacement therapy. 4. Chronic kidney disease, stable. 5. Cardiac defibrillator for primary prevention. PLAN: 1. Cardiovascular regimen for discharge reviewed. 2. Electrolytes need to be monitored as an outpatient. 3. Cardiac defibrillator can be interrogated every 3 months. 4. Outpatient Cardiology followup will be arranged. Irvin Subramanian M.D. DR: MARY JOB#: [id number] CC:
--- NOTE | 2018-04-01 13:19 | Discharge Summary ---
Discharge Summary Discharge Summary _ DATE OF ADMISSION: 03/28/2018 DATE OF DISCHARGE: 03/31/2018 CONSULTANTS: Dr. Irvin Subramanian BRIEF HOSPITAL COURSE: Patient is a 77-year-old male, who was transferred from SNF due to elevated BP. He has a known history of ischemic heart disease with left ventricular systolic dysfunction and has an AICD. He was hospitalized several months ago for sepsis and CHF. He had increasing shortness of breath, congestion and wheezing. He has medical history significant for coronary artery disease, cardiac defibrillator, GERD, CVA with left-sided weakness, anemia of chronic disease, hypertension with hypertensive heart disease, CKD, prostatic hypertrophy and bronchospastic lung disease. He was transferred to [facility] for further evaluation. On evaluation at ED, his vitals were stable. Blood work showed elevated BNP >17 ,000. Creatinine was 1.6. Chest x-ray done showed bilateral pleural effusions. He was admitted for evaluation of exacerbation of CHF. He was seen by miniature set constructor. He was given IV furosemide, Aldactone and carvedilol. He was given hydralazine and isosorbide combination for adequate afterload reduction. Kidney function was monitored. He was given potassium and magnesium replacement. He was given breathing treatment. Patient was anxious to go home. He did not want to go back to the retirement. He was breathing well and saturating well. There was no discharges from the defibrillator. He was then cleared for discharge home with home health. FINAL DIAGNOSES: Acute on chronic systolic congestive heart failure Dilated cardiomyopathy Hypertension Hypertensive heart disease COPD Hypomagnesemia Hypokalemia Chronic kidney disease Cardiac defibrillator Mild protein calorie malnutrition CVA with left-sided hemiparesis DISPOSITION: Patient was discharged home with home health. DISCHARGE MEDICATIONS: Refer to Discharge Medication List. DISCHARGE INSTRUCTIONS: Follow up within a week. I have been assigned to dictate discharge summary on this account, and I was not involved in the patient's management. Joanie Rodriguez NP Apr 01, 2018 13:19
== END 2018-03-31 13:52 | disposition home health service (06) | DRG 291 ==
LOC: EDBD 15:46 → EMR 16:23 → 2E 20:05 → EDBEDREQ 20:49 → 2E 03-30 04:23
DX: I13.0 Hypertensive heart and chronic kidney disease with heart failure and stage 1 through stage 4 chronic kidney disease, or unspecified chronic kidney disease (principal); I50.23 Acute on chronic systolic (congestive) heart failure; E44.1 Mild protein-calorie malnutrition; Z68.1 Body mass index [BMI] 19.9 or less, adult; I69.954 Hemiplegia and hemiparesis following unspecified cerebrovascular disease affecting left non-dominant side; I25.10 Atherosclerotic heart disease of native coronary artery without angina pectoris; J44.9 Chronic obstructive pulmonary disease, unspecified; N18.9 Chronic kidney disease, unspecified; K21.9 Gastro-esophageal reflux disease without esophagitis; N40.0 Benign prostatic hyperplasia without lower urinary tract symptoms; I42.0 Dilated cardiomyopathy; E87.6 Hypokalemia; E83.42 Hypomagnesemia; Z95.810 Presence of automatic (implantable) cardiac defibrillator; Z87.891 Personal history of nicotine dependence
CPT/HCPCS: 36415; 71045; 80048; 80053; 80061; 82550; 83735; 83880; 84443; 84484; 84550; 85025; 87081; 93005; 93306; 94640; 94664; J8499

== ENCOUNTER 2018-04-19 14:00 | Outpatient (RCR) | payer MEDICARE ==
[~2018-04-19 14:00] MED LIST changes: +ACETAMINOPHEN325 M1 ORAL; +BISACODYL5 MG ORAL; +CALCIUM CARBON500 M1 PO; +CARVEDILOL3.125 MG ORAL; +COREG6.25 MG ORAL; +FOLIC ACID1 MG ORAL; +HEPARIN SO5000 UNIT2 SUBQ; +HYDRALAZINE HCL50 MG ORAL; +MILK OF MA400 MG/51 ORAL; +POLYVINYL ALCOH15 ML OP; +SENNA8.6 M2 PO; +SPIRONOLACTONE25 MG ORAL; +TAMSULOSIN HCL0.4 MG ORAL; +ZOFRAN4 M3 ORAL
== END 2018-05-15 | disposition home or self-care (01) ==
LOC: PTY 14:00
DX: Z86.73 Personal history of transient ischemic attack (TIA), and cerebral infarction without residual deficits (principal); J44.9 Chronic obstructive pulmonary disease, unspecified; I13.0 Hypertensive heart and chronic kidney disease with heart failure and stage 1 through stage 4 chronic kidney disease, or unspecified chronic kidney disease; N18.9 Chronic kidney disease, unspecified; I25.9 Chronic ischemic heart disease, unspecified; Z95.810 Presence of automatic (implantable) cardiac defibrillator; I50.9 Heart failure, unspecified
CPT/HCPCS: 97110; 97112; 97116; 97162; 97535; G8978; G8979

== ENCOUNTER 2018-05-17 13:00 | Outpatient (RCR) | payer MEDICARE | END 2018-06-15 | disposition home or self-care (01) | LOC: PTY 13:00 | DX: Z86.73 Personal history of transient ischemic attack (TIA), and cerebral infarction without residual deficits (principal); I13.0 Hypertensive heart and chronic kidney disease with heart failure and stage 1 through stage 4 chronic kidney disease, or unspecified chronic kidney disease; N18.9 Chronic kidney disease, unspecified; I50.9 Heart failure, unspecified; J44.9 Chronic obstructive pulmonary disease, unspecified; I25.9 Chronic ischemic heart disease, unspecified | CPT/HCPCS: 97110; 97112; 97116; G8978; G8979 ==

== ENCOUNTER 2018-06-16 12:40 | Outpatient (RCR) | payer MEDICARE | END 2018-07-15 | disposition home or self-care (01) | LOC: PTY 12:40 | DX: Z86.73 Personal history of transient ischemic attack (TIA), and cerebral infarction without residual deficits (principal); I13.0 Hypertensive heart and chronic kidney disease with heart failure and stage 1 through stage 4 chronic kidney disease, or unspecified chronic kidney disease; N18.9 Chronic kidney disease, unspecified; I50.9 Heart failure, unspecified; J44.9 Chronic obstructive pulmonary disease, unspecified; Z95.810 Presence of automatic (implantable) cardiac defibrillator ==

== ENCOUNTER 2019-02-20 13:46 | Observation (INO) | payer MEDICARE, OTHER ==
[~2019-02-20] VITALS: Ht 177.8 cm; Wt 62.7 kg
--- NOTE | 2019-02-20 13:55 | NUR ---
ED Nurse Note: Patient walked into ED from home, brought in by his , s/p syncopal episode with fall, trauma on the left ear noted, covered with dressing. patient is alert awake, breathing unlabored and even. patient is ambulatory with assitance, able to use urinal, left contraction noted due to hx of CVA.
--- NOTE | 2019-02-20 13:59 | Emergency Room Report ---
History of Present Illness General Chief Complaint: Syncope Source: Patient, Family Member Present Illness HPI Patient fell. He does not remember falling. He hit his left ear on a stair. He was on a porch. Usually does not eat breakfast and did not eat this morning. Patient has a history of congestive failure with an implanted defibrillator. He denies any chest pain, palpitations, shortness of breath, fever, chills. He feels somewhat weak. He scraped his left forearm also and his left knee. The patient had a stroke in the past. He has chronic left-sided weakness. No nausea, vomiting, diarrhea, dysuria, abdominal pain, shortness of breath, depression, visual changes, headache. Tetanus reported UTD. Allergies: Coded Allergies: No Known Allergies (Unverified , 01/09/14) Patient History Past Medical History: see triage record Past Surgical History: pacemaker Social History: Denies: smoking Social History Narrative Reviewed Nursing Documentation: PMH: Agreed; PSxH: Agreed Nursing Documentation-PMH Hx Cardiac Problems: Yes - anemia Hx Hypertension: Yes Hx Pacemaker: Yes - left side Hx Asthma: Yes Hx COPD: No Hx Diabetes: No Hx Cancer: No Hx Gastrointestinal Problems: Yes - GERD Hx Dialysis: No - stage 3 kidney disease Hx Neurological Problems: No Hx Cerebrovascular Accident: Yes - left side weakness Hx Seizures: No Review of Systems All Other Systems: negative except mentioned in HPI Physical Exam Vital Signs Date Time Temp Pulse Resp B/P (MAP) Pulse Ox O2 Delivery O2 Flow Rate FiO2 02/20/19 13:47 97.3 69 18 169/93 (118) 97 Room Air Sp02 EP Interpretation: reviewed, normal General Appearance: well appearing, no apparent distress, GCS 15 Head: normocephalic Eyes: bilateral eye normal inspection, bilateral eye PERRL, bilateral eye EOMI ENT: moist mucus membranes, other - Ear laceration left Neck: full range of motion, supple, no bony tend Respiratory: chest non-tender, lungs clear, normal breath sounds, other - defib L chest Cardiovascular #1: regular rate, rhythm Cardiovascular #2: 2+ radial (R) Gastrointestinal: normal inspection, normal bowel sounds, non tender, no mass, non-distended Musculoskeletal: back normal, normal range of motion Neurologic: alert, oriented x3, 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 He does not remember falling. As he has a implanted defibrillator we need to consider syncope, arrhythmia, pacemaker failure, acute myocardial infarction, brain bleed amongst others. Valuation will be with EKG, CT of the head, chest x-ray and labs. The ear need to be repaired. We will contact the plastic surgeon to perform the suture repair. Patient states he is up-to-date on his tetanus at this time. Declines pain medication at this time. The patient is placed on a quality assurance monitor chassis. Dr. Valero will take care of laceration on floor. EKG NSR 1st degree AV block. CT R MCA infarct. CXR inc cor and pacer. Labs with high K and CRF (but better than prior). BNP elevated. Initial troponin neg. Platelets low. Kayexalate given. Patient improved. Admit tele/obs Dr. Boggs. Laboratory Tests Test 02/20/19 14:44 White Blood Count 7.0 K/UL (4.8-10.8) Red Blood Count 5.34 M/UL (4.70-6.10) Hemoglobin 15.7 G/DL (14.2-18.0) Hematocrit 51.3 % (42.0-52.0) Mean Corpuscular Volume 96 FL (80-99) Mean Corpuscular Hemoglobin 29.4 PG (27.0-31.0) Mean Corpuscular Hemoglobin Concent 30.6 G/DL (32.0-36.0) L Red Cell Distribution Width 15.5 % (11.6-14.8) H Platelet Count 85 K/UL (150-450) L Mean Platelet Volume 10.4 FL (6.5-10.1) H Neutrophils (%) (Auto) % (45.0-75.0) Lymphocytes (%) (Auto) % (20.0-45.0) Monocytes (%) (Auto) % (1.0-10.0) Eosinophils (%) (Auto) % (0.0-3.0) Basophils (%) (Auto) % (0.0-2.0) Neutrophils % (Manual) Pending Lymphocytes % (Manual) Pending Platelet Estimate Pending Platelet Morphology Pending Prothrombin Time 10.3 SEC (9.30-11.50) Prothrombin Time INR 1.0 (0.9-1.1) PTT 25 SEC (23-33) Urine Color Pale yellow Urine Appearance Clear Urine pH 7 (4.5-8.0) Urine Specific [place] 1.010 (1.005-1.035) Urine Protein 3+ (NEGATIVE) H Urine Glucose (UA) Negative (NEGATIVE) Urine Ketones Negative (NEGATIVE) Urine Blood 1+ (NEGATIVE) H Urine Nitrite Negative (NEGATIVE) Urine Bilirubin Negative (NEGATIVE) Urine Urobilinogen Normal MG/DL (0.0-1.0) Urine Leukocyte Esterase Negative (NEGATIVE) Urine RBC 2-4 /HPF (0 - 0) H Urine WBC 0-2 /HPF (0 - 0) Urine Squamous Epithelial Cells None /LPF (NONE/OCC) Urine Bacteria Few /HPF (NONE) Sodium Level 141 MMOL/L (136-145) Potassium Level 5.4 MMOL/L (3.5-5.1) H Chloride Level 103 MMOL/L (98-107) Carbon Dioxide Level 30 MMOL/L (21-32) Anion Gap 8 mmol/L (5-15) Blood Urea Nitrogen 19 mg/dL (7-18) H Creatinine 1.5 MG/DL (0.55-1.30) H Estimate Glomerular Filtration Rate mL/min (>60) Glucose Level 93 MG/DL (74-106) Calcium Level 9.3 MG/DL (8.5-10.1) Total Bilirubin 0.8 MG/DL (0.2-1.0) Aspartate Amino Transferase (AST) 42 U/L (15-37) H Alanine Aminotransferase (ALT) 16 U/L (12-78) Alkaline Phosphatase 95 U/L (46-116) Total Creatine Kinase 245 U/L (26-308) Troponin I 0.003 ng/mL (0.000-0.056) Pro-B-Type Natriuretic Peptide 2998 pg/mL (0-125) H Total Protein 7.5 G/DL (6.4-8.2) Albumin 4.4 G/DL (3.4-5.0) Globulin 3.1 g/dL Albumin/Globulin Ratio 1.4 (1.0-2.7) Lipase 136 U/L (73-393) Urine Opiates Screen Negative (NEGATIVE) Urine Barbiturates Screen Negative (NEGATIVE) Phencyclidine (PCP) Screen Negative (NEGATIVE) Urine Amphetamines Screen Negative (NEGATIVE) Urine Benzodiazepines Screen Negative (NEGATIVE) Urine Cocaine Screen Negative (NEGATIVE) Urine Marijuana (THC) Screen Negative (NEGATIVE) EKG Diagnostic Results Rate: normal Rhythm: NSR ST Segments: no acute changes - 1sst degree av block Rhythm Strip Diag. Results EP Interpretation: yes Rhythm: NSR, no PVC's, no ectopy, other - rate 72 Chest X-Ray Diagnostic Results Chest X-Ray Diagnostic Results : Chest X-Ray Ordered: Yes # of Views/Limited/Complete: 1 View Indication: Other EP Interpretation: Yes Interpretation: no consolidation, no effusion, no pneumothorax, other - cardiomegally and defib Impression: Other Electronically Signed by: Electronically signed by Irvin Carrington MD CT/MRI/US Diagnostic Results CT/MRI/US Diagnostic Results : Imaging Test Ordered: head Impression R MCA infarct Last Vital Signs Date Time Temp Pulse Resp B/P (MAP) Pulse Ox O2 Delivery O2 Flow Rate FiO2 02/21/19 00:00 66 02/21/19 00:00 97.9 18 138/76 (96) 97 02/20/19 21:00 Room Air Status: improved Disposition: PLACE IN OBSERVATION Condition: Serious Irvin Carrington MD Feb 20, 2019 13:59
[2019-02-20] MEDS ORDERED: Lidocaine 1% MPF 10mg/ml 5ml INJ ONE (14:00)
[2019-02-20] MEDS ORDERED: Sterile Water Irrig 1000ml IRRIG ONE (14:17)
--- NOTE | 2019-02-20 14:23 | NUR ---
ED Nurse Note: came back from CT, xray by the bedside for CXR
--- NOTE | 2019-02-20 14:58 | NUR ---
ED Nurse Note: at bedside
[2019-02-20 15:00] VITALS: BP 170/83
--- NOTE | 2019-02-20 15:00 | NUR ---
ED Nurse Note: patient gracia any pain at this time
[2019-02-20 15:04] LABS: APPEARANCE,URINE CLEAR; BILIRUBIN, URINE NEGATIVE (NEGATIVE); COLOR,URINE PALE YELLOW; GLUCOSE, URINE (UA) NEGATIVE (NEGATIVE); KETONES,URINE NEGATIVE (NEGATIVE); LEUKOCYTE ESTERASE ,URINE NEGATIVE (NEGATIVE); NITRITE,URINE NEGATIVE (NEGATIVE); PH,URINE 7 (4.5-8.0); PROTEIN,URINE 3+ (NEGATIVE); UROBILINOGEN,URINE NORMAL MG/DL (0.0-1.0)
[2019-02-20 15:07] LABS: HEMATOCRIT 51.3 % (42.0-52.0); HEMOGLOBIN 15.7 G/DL (14.2-18.0); MEAN CORPUSCULAR VOLUME 96 FL (80-99); PLATELET COUNT 85 K/UL (150-450); RED BLOOD COUNT 5.34 M/UL (4.70-6.10); RED CELL DISTRIBUTION WIDTH 15.5 % (11.6-14.8)
--- NOTE | 2019-02-20 15:07 | Diagnostic Imaging Report ---
Indications: Syncope, head injury Technique: Spiral acquisitions obtained through the brain. Angled axial and coronal 5 x 5 mm slices were reconstructed. Total dose length product 1337.07 mGycm. CTDI vol(s) 70.38 mGy. Dose reduction achieved using automated exposure control Comparison: 01/03/2018 Findings: There is an area of fairly striking low-attenuation involving the right parietal lobe. There is some effacement of the sulci in the region of the low-attenuation. However there is suggestion of slightly greater caliber of the adjacent lateral ventricle as compared to prior study.. This finding is not evident previously. There is no associated hemorrhage. No evidence of acute edema elsewhere. No midline shift. There is mild age-related enlargement of the ventricles and extra axial CSF spaces. There is periventricular deep white matter low-attenuation again demonstrated. No acute hemorrhage. The visualized orbits and sinuses are unremarkable. There is minimal mastoid disease on the left. Impression: Right anterior parietal low-attenuation presumably represents an infarct. Probably old (although new since 01/03/2018), but could also be late subacute given the slight effacement of the adjacent sulci. No associated hemorrhage or other acute intracranial bleed Other chronic and age-related changes, as described The CT scanner at [facility] is accredited by the [employer] and the scans are performed using protocols designed to limit radiation exposure to as low as reasonably achievable to attain images of sufficient resolution adequate for diagnostic evaluation.
[2019-02-20 15:15] LABS: ANION GAP 8 mmol/L (5-15); BLOOD UREA NITROGEN 19 mg/dL (7-18); CALCIUM 9.3 MG/DL (8.5-10.1); CARBON DIOXIDE 30 MMOL/L (21-32); CHLORIDE 103 MMOL/L (98-107); CREATININE 1.5 MG/DL (0.55-1.30); POTASSIUM 5.4 MMOL/L (3.5-5.1); SODIUM 141 MMOL/L (136-145)
--- NOTE | 2019-02-20 15:17 | Diagnostic Imaging Report ---
Indication: Syncope Technique: One view of the chest Comparison: 03/28/2018 Findings: There is slight blunting of the bilateral costophrenic sulci, consistent with small amount of pleural fluid. On both sides, this is decreased from the previous exam. The heart is mildly enlarged. No definite congestion or infiltrates Impression: Cardiomegaly Small bilateral pleural effusions Negative for infiltrate or significant interstitial congestion
--- NOTE | 2019-02-20 15:23 | NUR ---
ED Nurse Note: nickie Law at lab, troponin is logged in as the same time, 1444 on his side
[2019-02-20 15:28] LABS: ALANINE AMINOTRANSFERASE 16 U/L (12-78); ALBUMIN 4.4 G/DL (3.4-5.0); ALBUMIN/GLOBULIN RATIO 1.4 (1.0-2.7); ALKALINE PHOSPHATASE 95 U/L (46-116); ASPARTATE AMINO TRANSFERASE 42 U/L (15-37); BILIRUBIN,TOTAL 0.8 MG/DL (0.2-1.0); CREATINE KINASE 245 U/L (26-308)
[2019-02-20] MEDS ORDERED: Sodium Polystyrene Sulfonate 15gm Powder ORAL ONE (15:30)
[2019-02-20] MEDS ORDERED: ASPIRIN81 MG ORAL (17:04)
[2019-02-20 17:27] VITALS: BP 148/70
--- NOTE | 2019-02-20 17:27 | NUR ---
ED Nurse Note: report given to Allyn KHAN, endorsed all plan of care to Allyn KHAN patient is being transferred in classroom monitor with all of his belongings
--- NOTE | 2019-02-20 17:33 | NUR ---
NURSE NOTES: Received from ED. Awake, alert, on room air. With left ear laceration, dressing noted. Dr. Lamb will be here tonight to fix left ear.
--- NOTE | 2019-02-20 19:30 | NUR ---
HAND-OFF: Report given to FRIDA Atkinson RN.
--- NOTE | 2019-02-20 19:54 | NUR ---
CASE MANAGEMENT: REVIEW 78Y/F PRESENTED TO ED FROM HOME CC: SYNCOPE FALL TODAY . LEFT EAR BLEEDING SI: SYNCOPE . LACERATION OF LEFT EAR T 97.3 HR 69 RR 18 BP 170/83 SAT 100% ROOM AIR K 5.4 BUN 19 CR 1.5 AST 42 BNP 2998 IS: KAYEXALATE PO X1 LIDOCAINE INJ X1 PT EVAL PATIENT ADMITTED TO STEP DOWN UNIT 02/20/2019 DCP: PATIENT IS FROM HOME
--- NOTE | 2019-02-20 19:58 | History & Physical ---
History and Physical History & Physicial 78 year old male well known to me presents with syncopal episode, hitting his left ear. Patient apparently on the porch but does not recall event. He had a prior stroke with focal weakness and has improved overall. He does also have cardiac disease but has been fairly stable. care discussed and patient admitted for overnight monitoring and intervention He denies fever chills, palpitations, chest pain at this time PMH AICD cardiomyopathy CVA with left sided weakness weight loss anemia MEDS and ALLERGIES reviewed and reconciled SOCIAL , previously at [facility], nonsmoker currently and retired ROS 10 points reviewed and discussed PHYSICAL 148/70 72 98.2 14 97% WDWN NAD clear breath sounds bilaterally without rhonchi or wheeze [id number] without MRG NABS nontender no HSM no CCE focal weakness Laboratory Tests Test 02/20/19 14:44 White Blood Count 7.0 K/UL (4.8-10.8) Red Blood Count 5.34 M/UL (4.70-6.10) Hemoglobin 15.7 G/DL (14.2-18.0) Hematocrit 51.3 % (42.0-52.0) Mean Corpuscular Volume 96 FL (80-99) Mean Corpuscular Hemoglobin 29.4 PG (27.0-31.0) Mean Corpuscular Hemoglobin Concent 30.6 G/DL (32.0-36.0) L Red Cell Distribution Width 15.5 % (11.6-14.8) H Platelet Count 85 K/UL (150-450) L Mean Platelet Volume 10.4 FL (6.5-10.1) H Neutrophils (%) (Auto) % (45.0-75.0) Lymphocytes (%) (Auto) % (20.0-45.0) Monocytes (%) (Auto) % (1.0-10.0) Eosinophils (%) (Auto) % (0.0-3.0) Basophils (%) (Auto) % (0.0-2.0) Differential Total Cells Counted 100 Neutrophils % (Manual) 73 % (45-75) Lymphocytes % (Manual) 17 % (20-45) L Monocytes % (Manual) 6 % (1-10) Eosinophils % (Manual) 3 % (0-3) Basophils % (Manual) 1 % (0-2) Band Neutrophils 0 % (0-8) Platelet Estimate Decreased L Platelet Morphology Normal Red Blood Cell Morphology Normal Prothrombin Time 10.3 SEC (9.30-11.50) Prothromb Time International Ratio 1.0 (0.9-1.1) Activated Partial Thromboplast Time 25 SEC (23-33) Urine Color Pale yellow Urine Appearance Clear Urine pH 7 (4.5-8.0) Urine Specific [place] 1.010 (1.005-1.035) Urine Protein 3+ (NEGATIVE) H Urine Glucose (UA) Negative (NEGATIVE) Urine Ketones Negative (NEGATIVE) Urine Blood 1+ (NEGATIVE) H Urine Nitrite Negative (NEGATIVE) Urine Bilirubin Negative (NEGATIVE) Urine Urobilinogen Normal MG/DL (0.0-1.0) Urine Leukocyte Esterase Negative (NEGATIVE) Urine RBC 2-4 /HPF (0 - 0) H Urine WBC 0-2 /HPF (0 - 0) Urine Squamous Epithelial Cells None /LPF (NONE/OCC) Urine Bacteria Few /HPF (NONE) Sodium Level 141 MMOL/L (136-145) Potassium Level 5.4 MMOL/L (3.5-5.1) H Chloride Level 103 MMOL/L (98-107) Carbon Dioxide Level 30 MMOL/L (21-32) Anion Gap 8 mmol/L (5-15) Blood Urea Nitrogen 19 mg/dL (7-18) H Creatinine 1.5 MG/DL (0.55-1.30) H Estimat Glomerular Filtration Rate mL/min (>60) Glucose Level 93 MG/DL (74-106) Calcium Level 9.3 MG/DL (8.5-10.1) Total Bilirubin 0.8 MG/DL (0.2-1.0) Aspartate Amino Transf (AST/SGOT) 42 U/L (15-37) H Alanine Aminotransferase (ALT/SGPT) 16 U/L (12-78) Alkaline Phosphatase 95 U/L (46-116) Total Creatine Kinase 245 U/L (26-308) Troponin I 0.003 ng/mL (0.000-0.056) Pro-B-Type Natriuretic Peptide 2998 pg/mL (0-125) H Total Protein 7.5 G/DL (6.4-8.2) Albumin 4.4 G/DL (3.4-5.0) Globulin 3.1 g/dL Albumin/Globulin Ratio 1.4 (1.0-2.7) Lipase 136 U/L (73-393) Urine Opiates Screen Negative (NEGATIVE) Urine Barbiturates Screen Negative (NEGATIVE) Phencyclidine (PCP) Screen Negative (NEGATIVE) Urine Amphetamines Screen Negative (NEGATIVE) Urine Benzodiazepines Screen Negative (NEGATIVE) Urine Cocaine Screen Negative (NEGATIVE) Urine Marijuana (THC) Screen Negative (NEGATIVE) IMPRESSION Syncope AICD cardiomyopathy CVA hyperkalemia renal insufficiency PLAN IV hydration monitor troponins resume meds follow up for change surgeon called for ear injury impression, plan, and exam edited and reviewed in detail care discussed with Dheeraj Bryant MD Feb 20, 2019 19:58
[2019-02-20 20:00] VITALS: BP 162/89
[2019-02-20] MEDS ORDERED: Lidocaine 1% 10mg/ml/Epi 0.005mg/ml 30ml vial INJ SCH (20:00)
[2019-02-20] MEDS ORDERED: Bacitracin Oint 15gm Tube TOPIC ONE (20:00)
--- NOTE | 2019-02-20 20:15 | NUR ---
NURSE NOTES: Dr. Lamb used Lidocaine medication for "Washout and Closure of the Left earlobe Laceration."
[2019-02-20] MEDS: Atorvastatin 80mg tab ORAL SCH (22:01)
[2019-02-20] MEDS: Tamsulosin 0.4mg cap ORAL SCH (22:02)
[2019-02-20] MEDS: Carvedilol 6.25mg Tab ORAL SCH (22:02)
--- NOTE | 2019-02-20 23:30 | NUR ---
TRANSFER TO FLOOR: Patient transferred to Telemetry, per Dr. Boggs. Report given to Rob KHAN. Belongings and medications given to patient. Family and or S/O informed of transfer.
--- NOTE | 2019-02-20 23:35 | NUR ---
NURSE NOTES: Received report from Nguyen Cisneros RN. regarding patients transfer to TELE floor from SDU. Patient arrived with at bedside, belongings checked and noted with patient. Head to toe assessment initiated with no skin issues observed aside from Post Surgical intervention for Left ear laceration. Cardiac monitoring in place continuously per protocol. Current orders transferred and active. Safety precaution in place; siderails X3 up, call light within reach, bed in lowest position, brakes and alarm on at all times. Needs and wants anticipated and attended. Will continue plan of care.
[2019-02-21] VITALS: BP 138/76
--- NOTE | 2019-02-21 02:36 | NUR ---
NURSE NOTES: Patient in bed asleep with no S/S of distress noted at this time. Will continue to monitor.
[2019-02-21 04:00] VITALS: BP 143/74
--- NOTE | 2019-02-21 07:10 | NUR ---
NURSE NOTES: Received report from Suzy Fountain Patient is AAO x4. Patient was eating breakfast. Patient on high folwer position. Patient is breathing even and unlabored on room air. Patient is on monitoring and evaluation advisor per protocol. Noted dressing on head from Post Surgical intervention for Left ear laceration. Cardiac monitoring in place continuously per protocol. Safety precaution in place; side rails X3 up, call light within reach, bed in lowest position, brakes and alarm on at all times. Will continue plan of care. Physical therapy evaluation pending.
--- NOTE | 2019-02-21 07:29 | NUR ---
HAND-OFF: Report given to Nguyen Magallanes RN. Patient in stable condition, endorsed plan of care.
[2019-02-21 08:00] VITALS: BP 136/69
[2019-02-21] MEDS: Furosemide 40mg tab ORAL SCH (08:20)
[2019-02-21] MEDS: Carvedilol 6.25mg Tab ORAL SCH ×2 (08:20→21:11)
[2019-02-21] MEDS: Aspirin Baby 81mg ORAL SCH (08:21)
[2019-02-21] MEDS: Tamsulosin 0.4mg cap ORAL SCH ×2 (08:21→21:11)
[2019-02-21] MEDS: Allopurinol 100mg Tab ORAL SCH (08:23)
[2019-02-21 08:32] LABS: HEMATOCRIT 43.9 % (42.0-52.0); MEAN CORPUSCULAR VOLUME 95 FL (80-99); PLATELET COUNT 92 K/UL (150-450); RED BLOOD COUNT 4.61 M/UL (4.70-6.10); RED CELL DISTRIBUTION WIDTH 15.5 % (11.6-14.8); WHITE BLOOD COUNT 7.2 K/UL (4.8-10.8)
--- NOTE | 2019-02-21 08:35 | General Progress Note ---
Assessment/Plan Assessment/Plan: IMPRESSION Syncope AICD cardiomyopathy CVA hyperkalemia renal insufficiency earlobe laceration PLAN IV hydration monitor troponins maintain meds follow up for change surgeon called for ear injury and repair hope to dc home with HH impression, plan, and exam edited and reviewed in detail care discussed with RN Subjective Allergies: Coded Allergies: No Known Allergies (Unverified , 01/09/14) Subjective plan for left earlobe laceration repair comfortable alert Objective Last 24 Hour Vital Signs Date Time Temp Pulse Resp B/P (MAP) Pulse Ox O2 Delivery O2 Flow Rate FiO2 02/21/19 08:20 63 136/69 02/21/19 08:00 98.1 63 20 136/69 (91) 96 02/21/19 05:26 143/74 02/21/19 04:00 60 02/21/19 04:00 97.8 63 18 143/74 (97) 98 02/21/19 00:00 66 02/21/19 00:00 97.9 64 18 138/76 (96) 97 02/20/19 22:02 68 162/89 02/20/19 22:01 162/89 02/20/19 21:00 Room Air 02/20/19 20:00 67 02/20/19 20:00 97.7 68 20 162/89 (113) 99 02/20/19 17:55 Room Air 02/20/19 17:27 97.3 72 15 148/70 100 Room Air 02/20/19 17:27 97.3 72 15 148/70 100 Room Air 02/20/19 15:00 97.3 72 16 170/83 100 Room Air 02/20/19 13:47 97.3 69 18 169/93 (118) 97 Room Air Intake and Output 02/20/19 02/21/19 19:00 07:00 Intake Total 120 ml Output Total 300 ml Balance -180 ml Intake Oral 120 ml Output Urine Total 300 ml # Bowel Movements 1 1 Laboratory Tests 02/20/19 14:44: White Blood Count 7.0, Red Blood Count 5.34, Hemoglobin 15.7, Hematocrit 51.3, Mean Corpuscular Volume 96, Mean Corpuscular Hemoglobin 29.4, Mean Corpuscular Hemoglobin Concent 30.6L, Red Cell Distribution Width 15.5H, Platelet Count 85L , Mean Platelet Volume 10.4H, Neutrophils (%) (Auto) , Lymphocytes (%) (Auto) , Monocytes (%) (Auto) , Eosinophils (%) (Auto) , Basophils (%) (Auto) , Differential Total Cells Counted 100, Neutrophils % (Manual) 73, Lymphocytes % ( Manual) 17L, Monocytes % (Manual) 6, Eosinophils % (Manual) 3, Basophils % ( Manual) 1, Band Neutrophils 0, Platelet Estimate DecreasedL, Platelet Morphology Normal, Red Blood Cell Morphology Normal, Prothrombin Time 10.3, Prothromb Time International Ratio 1.0, Activated Partial Thromboplast Time 25, Urine Color Pale yellow, Urine Appearance Clear, Urine pH 7, Urine Specific [place] 1.010, Urine Protein 3+H, Urine Glucose (UA) Negative, Urine Ketones Negative, Urine Blood 1+H, Urine Nitrite Negative, Urine Bilirubin Negative, Urine Urobilinogen Normal, Urine Leukocyte Esterase Negative, Urine RBC 2-4H, Urine WBC 0-2, Urine Squamous Epithelial Cells None, Urine Bacteria Few, Sodium Level 141, Potassium Level 5.4H, Chloride Level 103, Carbon Dioxide Level 30, Anion Gap 8, Blood Urea Nitrogen 19H, Creatinine 1.5H, Estimat Glomerular Filtration Rate , Glucose Level 93, Calcium Level 9.3, Total Bilirubin 0.8, Aspartate Amino Transf (AST/SGOT) 42H, Alanine Aminotransferase (ALT/SGPT) 16, Alkaline Phosphatase 95, Total Creatine Kinase 245, Troponin I 0.003, Pro-B- Type Natriuretic Peptide 2998H, Total Protein 7.5, Albumin 4.4, Globulin 3.1, Albumin/Globulin Ratio 1.4, Lipase 136, Urine Opiates Screen Negative, Urine Barbiturates Screen Negative, Phencyclidine (PCP) Screen Negative, Urine Amphetamines Screen Negative, Urine Benzodiazepines Screen Negative, Urine Cocaine Screen Negative, Urine Marijuana (THC) Screen Negative 02/21/19 06:43: White Blood Count [Pending], Red Blood Count [Pending], Hemoglobin [Pending], Hematocrit [Pending], Mean Corpuscular Volume [Pending], Mean Corpuscular Hemoglobin [Pending], Mean Corpuscular Hemoglobin Concent [Pending], Red Cell Distribution Width [Pending], Platelet Count [Pending], Mean Platelet Volume [ Pending], Neutrophils (%) (Auto) [Pending], Lymphocytes (%) (Auto) [Pending], Monocytes (%) (Auto) [Pending], Eosinophils (%) (Auto) [Pending], Basophils (%) (Auto) [Pending], Sodium Level [Pending], Potassium Level [Pending], Chloride Level [Pending], Carbon Dioxide Level [Pending], Blood Urea Nitrogen [Pending], Creatinine [Pending], Estimat Glomerular Filtration Rate [Pending], Glucose Level [Pending], Calcium Level [Pending], Troponin I [Pending] Height (Feet): 5 Height (Inches): 10.00 Weight (Pounds): 133 Objective WDWN NAD stable breath sounds bilaterally without rhonchi or wheeze [id number] without MRG AICD NABS nontender no HSM no CCE focal weakness left earlobe laceration Dheeraj Boggs MD Feb 21, 2019 08:35
[2019-02-21 08:39] LABS: ANION GAP 10 mmol/L (5-15); BLOOD UREA NITROGEN 17 mg/dL (7-18); CALCIUM 8.8 MG/DL (8.5-10.1); CARBON DIOXIDE 27 MMOL/L (21-32); CHLORIDE 105 MMOL/L (98-107); CREATININE 1.4 MG/DL (0.55-1.30); POTASSIUM 3.1 MMOL/L (3.5-5.1); SODIUM 142 MMOL/L (136-145)
--- NOTE | 2019-02-21 09:45 | NUR ---
NURSE NOTES: Sent message to Dr. Boggs about potassium 3.1. Awaiting call back for orders.
--- NOTE | 2019-02-21 10:30 | NUR ---
NURSE NOTES: Dr. Boggs is aware of potassium 3.1. Order was received and entered.
[2019-02-21 12:00] VITALS: BP 146/79
--- NOTE | 2019-02-21 13:11 | Cardiology Report ---
APPROVED REPORT EKG Measurement Heart [id number] Sinus rhythm with 1st degree AV block with occasional premature ventricular complexes Left axis deviation Possible Anterior infarct, age undetermined Abnormal ECG
--- NOTE | 2019-02-21 14:14 | NUR ---
P.T NOTE: P.T EVALUATION COMPLETED AND TREATMENT INITIATED. PLEASE REFER TO P.T EVALUATION FOR CURRENT FUNCTIONAL STATUS. PATIENT IS ALERT, O X 4 ,PLEASANT AND COOPERATIVE. PATIENT DENIED C/O PAIN BUT REPORTS C/O GENERALIZED WEAKNESS. PATIENT CURRENTLY REQUIRE SBA X 1 FOR BED MOBILITIES AND TRANSFERS AND WAS ABLE TO AMBULATE 100 FEET USING THE [facility].PATIENT WILL BE SEEN FOR THER EX'S/ACTIVITIES ,BALANCE AND GAIT TRAINING DURING STAY. ANTICIPATED D/C TO HOME TOMORROW WITH ASSISTING. RECOMMEND TO RESUME PREVIOUS OP P.T PATIENT HAS BEEN RECEIVING PRIOR TO ADMISSION. THANK YOU FOR THIS REFERRAL.
[2019-02-21 16:00] VITALS: BP 150/77
--- NOTE | 2019-02-21 16:00 | NUR ---
NURSE NOTES: Dr. Boggs is aware patient is observation status. No new order at this time.
--- NOTE | 2019-02-21 18:36 | NUR ---
NURSE NOTES: Spoke to Dr. Boggs about the multiple PVCS the patient has throughout the day. The patient has denied pain. Dr. Boggs is aware. No orders at this time.
--- NOTE | 2019-02-21 19:05 | NUR ---
HAND-OFF: Report given to ERIN Perdomo. Patient stated he accidentally removed his IV heplock. Patient was assisted to bathroom. Patien denies pain at this time.
--- NOTE | 2019-02-21 19:06 | NUR ---
NURSE NOTES: Received pt from ERIN Arrieta. Pt is awake and in no acute distress. Pt accidently d/c hep lock. Bed locked in lowest position, call light within reach. Pt family at bedside. Will continue with plan of care.
[2019-02-21 20:00] VITALS: BP 161/88
[2019-02-21] MEDS: Atorvastatin 80mg tab ORAL SCH (21:12)
[2019-02-22] VITALS: BP 143/70
[2019-02-22 04:00] VITALS: BP 153/74
--- NOTE | 2019-02-22 07:35 | NUR ---
HAND-OFF: Report given to ERIN Downey. Endorsed plan of care.
--- NOTE | 2019-02-22 07:40 | NUR ---
NURSE NOTES: Helped Pt. to stand by the bedside to urinate. Pt. voiced preference to stand to urinate.
[2019-02-22 08:00] VITALS: BP 144/74
[2019-02-22 09:00] VITALS: BP 144/74
[2019-02-22] MEDS ORDERED: Bacitracin Oint UD TOPIC SCH (09:00)
[2019-02-22] MEDS: Carvedilol 6.25mg Tab ORAL SCH ×2 (09:00→09:45)
[2019-02-22] MEDS: Aspirin Baby 81mg ORAL SCH (09:00)
--- NOTE | 2019-02-22 09:44 | General Progress Note ---
Assessment/Plan Assessment/Plan: IMPRESSION Syncope AICD cardiomyopathy CVA hyperkalemia renal insufficiency earlobe laceration PLAN dc IV hydration dc home keflex on dc maintain meds follow up for change surgeon follow up discussed hope to dc home with HH impression, plan, and exam edited and reviewed in detail care discussed with RN Subjective Allergies: Coded Allergies: No Known Allergies (Unverified , 01/09/14) Subjective left earlobe laceration repair comfortable alert able to ambulate d/w plastics Objective Last 24 Hour Vital Signs Date Time Temp Pulse Resp B/P (MAP) Pulse Ox O2 Delivery O2 Flow Rate FiO2 02/22/19 06:30 160/75 02/22/19 04:00 55 02/22/19 04:00 97.6 55 18 153/74 (100) 97 02/22/19 00:00 97.4 56 18 143/70 (94) 98 02/22/19 00:00 56 02/21/19 21:48 163/86 02/21/19 21:11 67 161/88 02/21/19 21:00 Room Air 02/21/19 20:00 71 02/21/19 20:00 97.7 71 20 161/88 (112) 97 02/21/19 16:00 98.2 63 20 150/77 (101) 98 02/21/19 15:34 67 02/21/19 14:38 146/79 02/21/19 12:37 65 02/21/19 12:00 97.8 61 20 146/79 (101) 98 Intake and Output 02/21/19 02/22/19 19:00 07:00 Intake Total 1740 ml 450 ml Output Total 300 ml Balance 1740 ml 150 ml Intake Oral 740 ml 450 ml IV Total 1000 ml Output Urine Total 300 ml Height (Feet): 5 Height (Inches): 10.00 Weight (Pounds): 138 Objective WDWN NAD stable breath sounds bilaterally without rhonchi or wheeze [id number] without MRG AICD NABS nontender no HSM no CCE focal weakness left earlobe laceration with stitches in place Dheeraj Boggs MD Feb 22, 2019 09:44
[2019-02-22] MEDS: Allopurinol 100mg Tab ORAL SCH (09:45)
[2019-02-22] MEDS: Tamsulosin 0.4mg cap ORAL SCH (09:45)
[2019-02-22] MEDS: Furosemide 40mg tab ORAL SCH (09:46)
--- NOTE | 2019-02-22 09:55 | NUR ---
NURSE NOTES: Helped to urinate. Pt. stood at side of bed to urinate. (100cc documented)
--- NOTE | 2019-02-22 10:00 | Consultation ---
DATE OF CONSULTATION: 02/20/2019 PLASTIC SURGERY CONSULTATION CONSULTING PHYSICIAN: Eugenio Lamb M.D. CHIEF COMPLAINT: Complex left ear laceration and left neck laceration HISTORY OF PRESENT ILLNESS: The patient is a 78-year-old male who presented to the [facility] emergency room after suffering a fall while walking down stairs. The patient reports that he was walking down two steps onto his porch when he fell hitting the left side of his face on the stairs. The patient did not remember the events surrounding the fall, but he noticed that he had suffered a laceration to his left ear. The patient has past medical history of congestive heart failure with an implanted defibrillator and stroke with chronic left-sided weakness. The patient was brought to the [facility] emergency room for evaluation. The patient was seen and evaluated by the ER physician and a workup for the syncopal episode was begun. In regard to the complex left ear laceration, plastic surgery was consulted for further evaluation and management of the left ear injury. PAST MEDICAL HISTORY: Includes cardiomyopathy, hypertension, chronic kidney disease, proteinuria, hypokalemia, hyperlipidemia, prediabetes, thrombocytopenia, and asthma MEDICATIONS: Include allopurinol, aspirin, Lipitor, Coreg, folate, Lasix, Isordil, and Flomax. ALLERGIES: No known drug allergies. FAMILY HISTORY: Noncontributory. SOCIAL HISTORY: Nonsmoker. REVIEW OF SYSTEMS: Significant for those things mentioned in the history of present illness. PHYSICAL EXAMINATION: VITAL SIGNS: Afebrile. Vital signs stable. GENERAL: Alert, awake, and oriented x3. HEENT: Examination of the patient's face reveals a complex laceration of the left earlobe. There is a full-thickness [id number] laceration of the left earlobe extending from the junction of the lobule and helical rim cephalad along the helical rim. The laceration measures 2.5 cm in length with exposed underlying helical rim cartilage. In addition, the patient is noted to have a 1.5cm oblique laceration within the retroauricular region of the neck. LABORATORY DATA: White count 7.0, hematocrit 51.3, and platelet count 85. PT 10.3 and PTT 25. ASSESSMENT: The patient is a 78-year-old male, status post ground-level fall with a complex left ear laceration involving the helical rim. In addition, the patient has a smaller laceration within the retroauricular region of the left side of the neck. The patient was informed about his injuries and the indication for washout and suture closure of the laceration sites. Please see procedure note for complete details. Following repair of the laceration sites, bacitracin ointment and dressing were applied. The patient is to continue dressing changes at this time and apply bacitracin ointment twice a day to the laceration repair sites. The patient will follow up in one week for re-evaluation and suture removal. Eugenio Lamb M.D. DR: Renzo JOB#: [id number] CC: NEIDA
--- NOTE | 2019-02-22 11:31 | NUR ---
DISCHARGE PLAN DISCHARGE HOME...SEE DISCHARGE PLANNING INTERVENTION
--- NOTE | 2019-02-22 11:55 | NUR ---
NURSE NOTES: Helped Pt. urinate.
--- NOTE | 2019-02-22 13:10 | NUR ---
NURSE NOTES: Pt. VS stable. Spouse at bedside. Belongings checked, signed and filed. quality assurance monitor body removed. Iv removed, intact, site covered. Name band removed, discarded in shredding bin. Discharge teaching done. to make a call to Pt's preferred pharmacy for a new antibiotics ordered. Incision site intact. Dressing changed. Teaching done how to care for incision. Pt. voiced understanding. Discharge package given. Pt. left floor safe via wheelchair, accompanied by RN.
--- NOTE | 2019-02-22 19:15 | Operative Note - Dictated ---
DATE OF OPERATION: 02/21/2019 PREOPERATIVE DIAGNOSES: 1. Complex left ear laceration of the helical rim (2.5 cm). 2. Left neck laceration (1.5 cm). POSTOPERATIVE DIAGNOSES: 1. Complex left ear laceration of the helical rim (2.5 cm). 2. Left neck laceration (1.5 cm). PROCEDURE PERFORMED: Washout and suture closure of complex left ear laceration and left neck laceration. SURGEON: Eugenio Lamb M.D. ANESTHESIA: 1% lidocaine. BLOOD LOSS: Minimal. COMPLICATIONS: None. BACKGROUND: The patient is a 78-year-old male who had fell down a staircase at home sustaining a complex laceration to his left ear. In addition, the patient had a smaller laceration along the left side of the neck. The patient reports tripping and falling while walking down the 2 steps onto his front porch, and suffered a laceration to his ear when it struck the staircase. After presenting to the [facility] Emergency room, plastic surgery was consulted for further evaluation and management of the laceration sites. DESCRIPTION OF PROCEDURE: After obtaining consent for washout and closure of left ear and neck lacerations, the laceration sites were injected with 1% lidocaine. After allowing adequate time for anesthesia, the patient's left ear laceration site and left neck laceration site were thoroughly irrigated with saline and Betadine. The complex left ear laceration measured 2.5 cm in length and extended from the helical rim-lobular junction cephalad along the helical rim. It was a full-thickness through and through laceration of the helical rim with exposed underlying cartilage. The smaller laceration was located within the retroauricular region of the left side of the neck and measured 1.5 cm in length. After irrigating the laceration sites, the left ear laceration was closed in layers. Initially, 5-0 Vicryl deep buried sutures were placed along the helical rim laceration. Following this, the skin edges were reapproximated with 6-0 nylon simple interrupted sutures placed along the length of the laceration site. Next, the left neck laceration site was closed with deep 5-0 Vicryl interrupted sutures followed by 6-0 nylon simple interrupted sutures. Following suture closure of both lacerations, the laceration repair sites were covered with bacitracin ointment followed by Adaptic dressing. The laceration sites were then covered with sterile 4x4s held in place with Kerlix wrap. The patient tolerated the procedure well. There were no issues or complications. The patient is scheduled to follow up in one week for reevaluation and suture removal. Eugenio Lamb M.D. DR: JOLIE JOB#: [id number] CC: NEIDA
--- NOTE | 2019-02-23 13:20 | Discharge Summary ---
Discharge Summary Discharge Summary _ DATE OF ADMISSION: 02/20/2019 DATE OF DISCHARGE: 02/22/2019 DISCHARGED BY: Dr. Spring Boggs CONSULTANTS: Dr. Eugenio Lamb BRIEF HOSPITAL COURSE: Patient is a 78-year-old male, who presented due to syncopal episode, hitting his left ear. Patient was apparently on the porch and could not recall actual event. He had a prior stroke with focal weakness. He has history of cardiac disease but has been fairly stable. He denied fever or chills. Denied palpitations or chest pain. He has medical history significant for cardiomyopathy, status post AICD, CVA with left-sided weakness and anemia. On evaluation at ED, blood pressure was 169/93, heart rate 69, 97% saturation on room air. Blood work did not show any leukocytosis. Hemoglobin and hematocrit were stable. Platelet count 85. Potassium was slightly elevated to 5.4. Creatinine was 1.5. Troponin was negative. proBNP 2998. Urine toxicology screen was negative. EKG showed sinus rhythm with first-degree AV block. Chest x-ray showed cardiomegaly, negative for infiltrate or significant interstitial congestion. He was given Kayexalate. He was admitted under observation for evaluation of syncope. He was given IV hydration. Serial cardiac enzymes were monitored. He was continued on home medications. He came in with injury to the ear lobe. Plastic surgery consultation was obtained. The patient had complex left ear laceration and left neck laceration. On 02/21/2019, he underwent repair with washout and suture closure of the complex left ear laceration and left neck laceration. He tolerated procedure well. He was educated on wound care with application of bacitracin ointment and dressings twice a day. He was advised to follow-up in a week for reevaluation and suture removal. He was given PT. He was then discharged home, to continue Keflex. Home health to follow. FINAL DIAGNOSES: Syncope AICD Cardiomyopathy CVA Hyperkalemia Renal insufficiency Status post ground-level fall with complex left ear laceration involving the helical rim and a smaller laceration within the retroauricular region of the left side of the neck, status post repair with washout and suture closure DISPOSITION: MT home with home health. DISCHARGE MEDICATIONS: Refer to Discharge Medication List. DISCHARGE INSTRUCTIONS: Follow-up in a week. I have been assigned to complete a discharge summary on this account, I was not involved with the patient's management.--MOISE Ortiz Jacqueline Robles NP Feb 23, 2019 13:20
== END 2019-02-22 13:13 | disposition home or self-care (01) ==
LOC: EDBEDREQ 14:01 → EMR 14:10 → INTOOBSV 14:16 → 2W 14:16 → EDBEDREQ 16:47 → 2W 17:19 → 2E 23:22
DX: R55 Syncope and collapse (principal); Z95.810 Presence of automatic (implantable) cardiac defibrillator; G81.94 Hemiplegia, unspecified affecting left nondominant side; E87.5 Hyperkalemia; S01.312A Laceration without foreign body of left ear, initial encounter; S11.91XA Laceration without foreign body of unspecified part of neck, initial encounter; K21.9 Gastro-esophageal reflux disease without esophagitis; I44.0 Atrioventricular block, first degree; Z79.899 Other long term (current) drug therapy; Z79.82 Long term (current) use of aspirin; E78.5 Hyperlipidemia, unspecified; R73.03 Prediabetes; E87.6 Hypokalemia; W10.8XXA Fall (on) (from) other stairs and steps, initial encounter; Y92.007 Garden or yard of unspecified non-institutional (private) residence as the place of occurrence of the external cause; I13.0 Hypertensive heart and chronic kidney disease with heart failure and stage 1 through stage 4 chronic kidney disease, or unspecified chronic kidney disease; N18.1 Chronic kidney disease, stage 1; I50.9 Heart failure, unspecified; I43 Cardiomyopathy in diseases classified elsewhere
CPT/HCPCS: 36415; 70450; 71045; 80048; 80053; 80307; 81003; 82550; 83690; 83880; 84484; 85007; 85025; 85610; 85730; 93005; 96367; 99285; G0378; J8499